=== PATIENT | female | born 1950 | race Caucasian/White ===

== ENCOUNTER 2016-10-11 07:04 | Outpatient (CLI) | payer MEDICARE ==
[~2016-10-11 07:04] MED LIST: ACETAMINOPHEN TAB 325 MG TAB PO ONE; SODIUM CHLORIDE 0.9% 250 ML in EMPTY BAG 1 BAG IV PRN; SODIUM CHLORIDE 0.9% 500 ML in EMPTY BAG 1 BAG IV PRN; diphenhydrAMINE 25 MG CAP PO ONE; diphenhydrAMINE 50 MG/ML 1 ML VIAL IVP ONE
[2016-10-11 07:58] VITALS: RESP 16; TEMP 97.7
[2016-10-11 08:16] LABS: Aty Lym Flag Slight; CH 30.7; CHCM 33.8; HDW 2.72; HGB 12.8 gm/dL (11.4-16.0); MCH 29.9 pg (25.0-35.0); MCHC 32.8 g/dL (31.0-37.0); MCV 91.3 fL (80.0-100.0); Mean Platelet Volume 8.1; RBC 4.27 m/uL (3.80-5.40); RDW 13.6 % (11.5-15.5); WBC 5.5 k/uL (3.8-10.6); WBC (Perox) 5.54
[2016-10-11 08:38] LABS: ALT 25 U/L (9-52); AST 29 U/L (14-36); Alkaline Phosphatase 81 U/L (38-126); Anion Gap 14 mmol/L; Bilirubin, Delta 0.3 mg/dL (0.0-0.2); Blood Urea Nitrogen 13 mg/dL (7-17); Calcium 9.4 mg/dL (8.4-10.2); Carbon Dioxide 22 mmol/L (22-30); Chloride 105 mmol/L (98-107); Glucose 105 mg/dL (74-99); Non-African American GFR(MDRD) >60 (>60 ml/min/1.73 sqM); Potassium 4.6 mmol/L (3.5-5.1); Sodium 141 mmol/L (137-145); Total Bilirubin 0.6 mg/dL (0.2-1.3)
[2016-10-11 08:57] LABS: Add Differential Manual Differential
[2016-10-11 09:04] LABS: Nucleated Red Blood Cells 0 /100 WBC (0-0); Total Cells Counted 100
[2016-10-11 09:19] VITALS: BP 128/71; PULSE 60
[2016-10-11 10:41] LABS: Appearance,Urine Clear (Clear); Bilirubin,Urine Negative (Negative); Glucose,Urine (UA) Negative (Negative); Ketones,Urine Negative (Negative); Leukocyte Esterase,Urine Negative (Negative); Nitrite,Urine Negative (Negative); Protein,Urine Negative (Negative); Specific Gravity,Urine 1.004 (1.001-1.035); UA Billing (MACRO vs. MICRO) CHEM; Urobilinogen,Urine <2.0 mg/dL (<2.0)
[2016-10-11 10:49] LABS: Erythrocyte Sedimentation Rate 33 mm/hr (0-20)
[2016-10-11] MEDS ORDERED: ACETAMINOPHEN TAB 325 MG TAB PO ONE (23:00)
[2016-10-11] MEDS ORDERED: diphenhydrAMINE 25 MG CAP PO ONE (23:00)
[2016-10-11] MEDS ORDERED: diphenhydrAMINE 50 MG/ML 1 ML VIAL IVP ONE (23:00)
== END 2016-10-11 11:23 | disposition home or self-care (01) ==
LOC: PROCWHC3 07:04
PROVIDERS: ATTEND Internal Medicine Rheumatology
DX: M06.89 Other specified rheumatoid arthritis, multiple sites (principal); I48.91 Unspecified atrial fibrillation; Z79.01 Long term (current) use of anticoagulants
CPT/HCPCS: 80053; 85652; 82248; 85025; 81003; 96361; 96413; 96415; J1745

== ENCOUNTER → 2016-11-29 | Outpatient (CLI) | payer MEDICARE ==
[2016-11-29 07:46] VITALS: RESP 16; TEMP 98.3
[2016-11-29 08:44] LABS: Aty Lym Flag Slight; CHCM 33.6; HCT 37.5 % (34.0-46.0); HDW 2.79; HGB 12.5 gm/dL (11.4-16.0); MCHC 33.4 g/dL (31.0-37.0); MCV 92.9 fL (80.0-100.0); Mean Platelet Volume 8.8; RBC 4.04 m/uL (3.80-5.40); RDW 14.5 % (11.5-15.5); WBC 6.3 k/uL (3.8-10.6); WBC (Perox) 6.52
[2016-11-29 09:00] LABS: ALT 28 U/L (9-52); AST 32 U/L (14-36); Alkaline Phosphatase 90 U/L (38-126); Anion Gap 12 mmol/L; Bilirubin, Delta 0.4 mg/dL (0.0-0.2); Blood Urea Nitrogen 13 mg/dL (7-17); Calcium 9.5 mg/dL (8.4-10.2); Carbon Dioxide 23 mmol/L (22-30); Chloride 109 mmol/L (98-107); Glucose 100 mg/dL (74-99); Non-African American GFR(MDRD) >60 (>60 ml/min/1.73 sqM); Sodium 144 mmol/L (137-145); Total Bilirubin 0.7 mg/dL (0.2-1.3)
[2016-11-29 09:23] VITALS: BP 122/70; PULSE 67
[2016-11-29 10:25] LABS: Add Differential Manual Differential
[2016-11-29 10:28] LABS: Nucleated Red Blood Cells 0 /100 WBC (0-0); Total Cells Counted 100
[2016-11-29 10:29] LABS: RBC Morphology Normal
[2016-11-29 11:58] LABS: Erythrocyte Sedimentation Rate 36 mm/hr (0-20)
== END | disposition home or self-care (01) ==
LOC: PROCWHC3 07:19
PROVIDERS: ATTEND Internal Medicine Rheumatology
DX: M06.89 Other specified rheumatoid arthritis, multiple sites (principal)
CPT/HCPCS: 80053; 85652; 82248; 85025; 96413; 96415; 36415; J1745; 96361

== ENCOUNTER → 2017-01-31 | Outpatient (CLI) | payer MEDICARE ==
[2017-01-31 08:04] VITALS: TEMP 97.8
[2017-01-31 08:40] VITALS: RESP 18
[2017-01-31 08:40] LABS: ALT 21 U/L (9-52); AST 34 U/L (14-36); Alkaline Phosphatase 81 U/L (38-126); Anion Gap 10 mmol/L; Bilirubin, Delta 0.4 mg/dL (0.0-0.2); Blood Urea Nitrogen 19 mg/dL (7-17); Carbon Dioxide 20 mmol/L (22-30); Chloride 110 mmol/L (98-107); Glucose 100 mg/dL (74-99); Non-African American GFR(MDRD) >60 (>60 ml/min/1.73 sqM); Potassium 4.2 mmol/L (3.5-5.1); Sodium 140 mmol/L (137-145); Total Bilirubin 0.8 mg/dL (0.2-1.3); Total Protein 7.7 g/dL (6.3-8.2)
[2017-01-31 08:57] LABS: Basophils # (A) 0.1 k/uL (0-0.2); Basophils % (A) 1 %; CH 31.5; CHCM 34.4; Eosinophils # (A) 0.3 k/uL (0-0.7); Eosinophils % (A) 5 %; HCT 37.2 % (34.0-46.0); HGB 12.7 gm/dL (11.4-16.0); Luc % (Auto) 3; Lymphocytes # (A) 1.8 k/uL (1.0-4.8); Lymphocytes % (A) 28 %; MCH 31.5 pg (25.0-35.0); MCHC 34.1 g/dL (31.0-37.0); MCV 92.2 fL (80.0-100.0); Mean Platelet Volume 8.4; Monocytes # (A) 0.5 k/uL (0-1.0); Monocytes % (A) 8 %; Neutrophils # (A) 3.5 k/uL (1.3-7.7); Neutrophils % (A) 55 %; RBC 4.03 m/uL (3.80-5.40); RDW 14.6 % (11.5-15.5); WBC 6.4 k/uL (3.8-10.6); WBC (Perox) 6.56
[2017-01-31 09:29] VITALS: BP 119/67; PULSE 59
[2017-01-31 10:29] LABS: INR 2.6 (<1.1); Prothrombin Time 25.5 sec (9.0-12.0)
[2017-01-31 10:34] LABS: Erythrocyte Sedimentation Rate 25 mm/hr (0-20)
[2017-01-31 10:47] LABS: Appearance,Urine Clear (Clear); Bilirubin,Urine Negative (Negative); Glucose,Urine (UA) Negative (Negative); Ketones,Urine Negative (Negative); Leukocyte Esterase,Urine Negative (Negative); Nitrite,Urine Negative (Negative); PH, Urine 5.5 (5.0-8.0); Protein,Urine Negative (Negative); Specific Gravity,Urine 1.006 (1.001-1.035); UA Billing (MACRO vs. MICRO) CHEM; Urobilinogen,Urine <2.0 mg/dL (<2.0)
== END | disposition home or self-care (01) ==
LOC: PROCWHC3 07:09
PROVIDERS: ATTEND Internal Medicine Rheumatology
DX: M06.89 Other specified rheumatoid arthritis, multiple sites (principal); I48.0 Paroxysmal atrial fibrillation
CPT/HCPCS: 80053; 85652; 82248; 85025; 85610; 81003; 96413; 96415; 36415; J1745

== ENCOUNTER 2017-03-14 21:39 | Emergency (ER) | payer MEDICARE ==
--- NOTE | 2017-03-14 22:17 | ED ---
General Adult HPI - General Chief complaint: Recheck/Abnormal Lab/Rx Stated complaint: Abnormal labs on out patient labs Time Seen by Provider: 03/14/17 22:01 Source: patient Mode of arrival: ambulatory Limitations: no limitations - History of Present Illness Initial comments: Didi Ruano is a 67-year-old female with a past medical history of A. fib for which she is on Coumadin. Patient reports that this morning she went for infusion of Remicade for treatment of her rheumatoid arthritis, at that time her blood was taken and labs are ran. Her INR resulted with an INR greater than 10. Patient reports she was given 10 mg of vitamin K and written a prescription for oral vitamin K. She was advised to withhold her Coumadin tonight follow-up with her primary care physician for repeat labs. Patient reports that she has visited multiple pharmacies this evening and has been unable to fill her prescription for oral vitamin K, because she cannot find this medication she came to the ER for further evaluation. She denies any active bleeding, any nosebleeds, bleeding gums, vaginal bleeding hematuria or blood in her stools. She denies any lightheadedness, chest pain or shortness of breath. Patient reports that she had not been told that she needed take this medication tonight she would not of psychiatric emergency department. - Related Data Home Medications Medication Instructions Recorded Confirmed Cholecalciferol [Vitamin D3] 1,000 units PO DAILY 02/23/14 03/14/17 Folic Acid 1 mg PO DAILY 02/23/14 03/14/17 Methotrexate Sodium [Methotrexate] 12.5 mg PO MO 02/23/14 03/14/17 Pantoprazole Sodium [Protonix] 40 mg PO DAILY 06/29/14 03/14/17 inFLIXimab [Remicade] 300 mg SQ Q42D 06/29/14 03/14/17 Atorvastatin [Lipitor] 10 mg PO HS 02/10/15 03/14/17 Metoprolol Tartrate [Lopressor] 25 mg PO BID 11/10/15 03/14/17 Propafenone [Rythmol] 150 mg PO DAILY PRN 03/14/17 03/14/17 Ubidecarenone [Co Q-10] 100 mg PO HS 03/14/17 03/14/17 Warfarin Sodium [Coumadin] 7.5 mg PO MO 03/14/17 03/14/17 Warfarin [Coumadin] 5 mg PO SUTUWETHFRSA 03/14/17 03/14/17 predniSONE 10 mg PO BID 03/14/17 03/14/17 Allergies Allergy/AdvReac Type Severity Reaction Status Date / Time erythromycin base AdvReac Rash/Hives Verified 03/14/17 22:01 Review of Systems ROS Statement: Those systems with pertinent positive or pertinent negative responses have been documented in the HPI. ROS Other: All systems not noted in ROS Statement are negative. Constitutional: Denies: fever, chills Eyes: Denies: vision change ENT: Denies: epistaxis Respiratory: Denies: dyspnea, hemoptysis Cardiovascular: Denies: chest pain, dyspnea on exertion Endocrine: Denies: fatigue Gastrointestinal: Denies: abdominal pain, hematemesis, melena, hematochezia Genitourinary: Denies: dysuria, hematuria Neurological: Denies: weakness Psychiatric: Reports: depression (Patient reports she recently lost her mother and is experiencing a lot of grief because of this, she is planning a celebration of life event in her mother's memory next week which is causing her a lot of stress). Denies: anxiety Hematological/Lymphatic: Reports: easy bruising Past Medical History Past Medical History: Atrial Fibrillation, GERD/Reflux, Rheumatoid Arthritis (RA ) Additional Past Medical History / Comment(s): NEW ONSET A-FIB RVR History of Any Multi-Drug Resistant Organisms: None Reported Past Surgical History: Tonsillectomy Additional Past Surgical History / Comment(s): CATARATS LENS IMPLANTS, RT FOOT REMOVED 3 NODULES Past Anesthesia/Blood Transfusion Reactions: No Reported Reaction Past Psychological History: No Psychological Hx Reported Smoking Status: Never smoker - Past Family History Father Family Medical History: Neurologic Disorder Additional Family Medical History / Comment(s): ARRYTHMIA, CORNEAL IMPLANTS, LT EYE BLIND , PARKINSONS, FATHER HAS Mother Family Medical History: Cancer, Coronary Artery Disease (CAD), Myocardial Infarction (NM) Additional Family Medical History / Comment(s): MOM IS 92 YEARS OLD. CATARACTS, DETATCHED RETINA, GLAUCOMA, MACULAR DEGENERATION, STENTS, BOWEL RESECTION FOR DIVERTICULITIS, KATINA KNEE REPLACEMENT, UTERINE CA/HYSTERECTOMY, Brother(s) Family Medical History: No Reported History Sister(s) Family Medical History: No Reported History General Exam Limitations: no limitations General appearance: alert, in no apparent distress Head exam: Present: atraumatic, normocephalic, normal inspection Eye exam: Present: normal appearance, PERRL, EOMI. Absent: scleral icterus, conjunctival injection, periorbital swelling ENT exam: Present: normal exam, mucous membranes moist Neck exam: Present: normal inspection. Absent: tenderness, meningismus, lymphadenopathy Respiratory exam: Present: normal lung sounds bilaterally. Absent: respiratory distress, wheezes, rales, rhonchi, stridor Cardiovascular Exam: Present: regular rate, irregular rhythm GI/Abdominal exam: Present: soft, normal bowel sounds. Absent: distended, tenderness, guarding, rebound, rigid Extremities exam: Present: normal inspection, full ROM, normal capillary refill. Absent: tenderness, pedal edema, joint swelling, calf tenderness Neurological exam: Present: alert, oriented X3, CN II-XII intact Psychiatric exam: Present: normal affect, normal mood, depressed Skin exam: Present: warm, dry, rash (Rash on abdomen, patient states this developed after being on Augmentin. No active bleeding noted) Course Vital Signs 03/14/17 21:54 Temperature 98.1 F Pulse Rate 85 Respiratory 18 Rate Blood Pressure 129/76 O2 Sat by Pulse 99 Oximetry - Reevaluation(s) Reevaluation #1: Labs resulted with an INR of 2.2, these results were discussed with the patient. I advised her that she doesn't require any further treatment with vitamin K. Patient is agreeable to this plan. 03/14/17 22:48 Medical Decision Making - Medical Decision Making Patient was seen and evaluated, history was obtained patient. Patient reported an INR greater than 10 on outpatient labs, received 10 mg of vitamin K. Patient with no active bleeding, physical exam unremarkable with no signs of bleeding or no conjunctival pallor Repeat labs were ordered Repeat labs reveal an INR of 2.2 Results were discussed with the patient and family member at bedside. Advised patient she doesn't need any further vitamin K. She should call her rn digestive tomorrow to discuss resuming her Coumadin. Patient expressed understanding of plan and agreement. All shins pertaining to take care were answered and patient was discharged home. - Lab Data Result diagrams: 03/14/17 22:16 Lab Results 03/14/17 03/14/17 Range/Units 22:16 22:16 WBC 14.7 H (3.8-10.6) k/uL RBC 3.63 L (3.80-5.40) m/uL Hgb 11.3 L (11.4-16.0) gm/dL Hct 32.6 L (34.0-46.0) % MCV 89.6 (80.0-100.0) fL MCH 31.2 (25.0-35.0) pg MCHC 34.8 (31.0-37.0) g/dL RDW 13.9 (11.5-15.5) % Plt Count 240 (150-450) k/uL Neutrophils % 62 % Lymphocytes % 29 % Monocytes % 6 % Eosinophils % 2 % Basophils % 0 % Neutrophils # 9.1 H (1.3-7.7) k/uL Lymphocytes # 4.2 (1.0-4.8) k/uL Monocytes # 0.9 (0-1.0) k/uL Eosinophils # 0.3 (0-0.7) k/uL Basophils # 0.1 (0-0.2) k/uL PT 21.0 H (9.0-12.0) sec INR 2.2 (<1.1) APTT 32.0 H (22.0-30.0) sec Disposition Clinical Impression: Warfarin-induced coagulopathy Disposition: HOME SELF-CARE Instructions: Warfarin (By mouth) Referrals: Les Esteban MD [Primary Care Provider] - 1-2 days
[2017-03-14 22:34] LABS: Basophils # (A) 0.1 k/uL (0-0.2); Basophils % (A) 0 %; CHCM 34.9; Eosinophils # (A) 0.3 k/uL (0-0.7); Eosinophils % (A) 2 %; HCT 32.6 % (34.0-46.0); HDW 2.72; HGB 11.3 gm/dL (11.4-16.0); Luc # (Auto) 0.19; Luc % (Auto) 1; Lymphocytes # (A) 4.2 k/uL (1.0-4.8); Lymphocytes % (A) 29 %; MCH 31.2 pg (25.0-35.0); MCHC 34.8 g/dL (31.0-37.0); MCV 89.6 fL (80.0-100.0); Mean Platelet Volume 8.5; Monocytes # (A) 0.9 k/uL (0-1.0); Monocytes % (A) 6 %; Neutrophils # (A) 9.1 k/uL (1.3-7.7); Neutrophils % (A) 62 %; RBC 3.63 m/uL (3.80-5.40); RDW 13.9 % (11.5-15.5); WBC 14.7 k/uL (3.8-10.6); WBC (Perox) 13.81
[2017-03-14 22:41] LABS: INR 2.2 (<1.1)
[2017-03-14 23:00] VITALS: BP 140/62; PULSE 79; RESP 16; TEMP 98
== END 2017-03-14 22:59 | disposition home or self-care (01) ==
LOC: EC 21:39
DX: D68.32 Hemorrhagic disorder due to extrinsic circulating anticoagulants (principal); T45.515A Adverse effect of anticoagulants, initial encounter; I48.91 Unspecified atrial fibrillation; M06.9 Rheumatoid arthritis, unspecified; R21 Rash and other nonspecific skin eruption; K21.9 Gastro-esophageal reflux disease without esophagitis; Z79.52 Long term (current) use of systemic steroids; Z79.01 Long term (current) use of anticoagulants; Z79.899 Other long term (current) drug therapy; Z89.431 Acquired absence of right foot; Z88.1 Allergy status to other antibiotic agents
CPT/HCPCS: 99283 ×2; 36415 ×2; 80053; 85652; 82248; 85025; 85610; 85730; 81001; 96413; 96415; J1745

== ENCOUNTER → 2017-03-14 | Outpatient (CLI) | payer MEDICARE ==
[~2017-03-14] MED LIST changes: +PHYTONADIONE ORAL 5 MG/5 ML ORAL.SYRG PO ONE
[2017-03-14 08:08] VITALS: TEMP 97.7
[2017-03-14 08:28] LABS: Basophils % (A) 0 %; CH 30.4; CHCM 33.5; Eosinophils # (A) 0.1 k/uL (0-0.7); Eosinophils % (A) 1 %; HCT 35.2 % (34.0-46.0); HDW 2.73; HGB 11.9 gm/dL (11.4-16.0); Luc # (Auto) 0.13; Luc % (Auto) 1; Lymphocytes # (A) 2.1 k/uL (1.0-4.8); Lymphocytes % (A) 15 %; MCH 30.9 pg (25.0-35.0); MCHC 33.8 g/dL (31.0-37.0); MCV 91.5 fL (80.0-100.0); Mean Platelet Volume 8.2; Monocytes # (A) 0.6 k/uL (0-1.0); Monocytes % (A) 4 %; Neutrophils % (A) 79 %; RBC 3.84 m/uL (3.80-5.40); RDW 13.7 % (11.5-15.5); WBC 13.9 k/uL (3.8-10.6); WBC (Perox) 14.48
[2017-03-14 08:29] VITALS: RESP 18
[2017-03-14 08:43] LABS: Prothrombin Time 114.5 sec (9.0-12.0)
[2017-03-14 08:45] VITALS: BP 108/68; PULSE 69
[2017-03-14 08:49] LABS: INR >10.0 (<1.1)
[2017-03-14 09:16] LABS: ALT 25 U/L (9-52); AST 32 U/L (14-36); Alkaline Phosphatase 72 U/L (38-126); Anion Gap 14 mmol/L; Bilirubin, Delta 0.4 mg/dL (0.0-0.2); Blood Urea Nitrogen 21 mg/dL (7-17); Calcium 9.3 mg/dL (8.4-10.2); Carbon Dioxide 23 mmol/L (22-30); Chloride 106 mmol/L (98-107); Glucose 132 mg/dL (74-99); Non-African American GFR(MDRD) >60 (>60 ml/min/1.73 sqM); Potassium 4.4 mmol/L (3.5-5.1); Sodium 143 mmol/L (137-145); Total Bilirubin 0.6 mg/dL (0.2-1.3); Total Protein 8.3 g/dL (6.3-8.2)
[2017-03-14 10:02] LABS: Erythrocyte Sedimentation Rate 92 mm/hr (0-20)
[2017-03-14 11:19] LABS: Appearance,Urine Clear (Clear); Bilirubin,Urine Negative (Negative); Glucose,Urine (UA) Negative (Negative); Ketones,Urine Negative (Negative); Leukocyte Esterase,Urine Moderate (Negative); Mucus,Urine Rare /hpf; Nitrite,Urine Negative (Negative); PH, Urine 5.5 (5.0-8.0); Particle Count 2476; Protein,Urine Negative (Negative); RBC,Urine 2 /hpf (0-5); Specific Gravity,Urine 1.015 (1.001-1.035); Squamous Epithelial Cell,Urine <1 /hpf (0-4); UA Billing (MACRO vs. MICRO) MICRO; Urobilinogen,Urine <2.0 mg/dL (<2.0); WBC,Urine 11 /hpf (0-5)
== END | disposition home or self-care (01) ==
LOC: PROCWHC3 07:06
PROVIDERS: ATTEND Internal Medicine Rheumatology
DX: M06.89 Other specified rheumatoid arthritis, multiple sites (principal); I48.0 Paroxysmal atrial fibrillation; Z51.81 Encounter for therapeutic drug level monitoring
CPT/HCPCS: 80053; 85652; 82248; 85025; 85610; 81001; 96413; 96415; 36415; J1745

== ENCOUNTER → 2017-04-25 | Outpatient (CLI) | payer MEDICARE ==
[~2017-04-25] MED LIST changes: -PHYTONADIONE ORAL 5 MG/5 ML ORAL.SYRG PO ONE; -SODIUM CHLORIDE 0.9% 250 ML in EMPTY BAG 1 BAG IV PRN
[2017-04-25 07:39] VITALS: RESP 18; TEMP 98.7
[2017-04-25 08:20] LABS: ALT 32 U/L (9-52); AST 29 U/L (14-36); Alkaline Phosphatase 105 U/L (38-126); Anion Gap 7 mmol/L; Basophils # (A) 0.1 k/uL (0-0.2); Basophils % (A) 1 %; Bilirubin, Delta 0.3 mg/dL (0.0-0.2); Blood Urea Nitrogen 13 mg/dL (7-17); CH 30.6; CHCM 33.7; Calcium 9.1 mg/dL (8.4-10.2); Carbon Dioxide 23 mmol/L (22-30); Chloride 109 mmol/L (98-107); Eosinophils # (A) 0.2 k/uL (0-0.7); Eosinophils % (A) 2 %; Glucose 90 mg/dL (74-99); HCT 35.2 % (34.0-46.0); HDW 2.79; Luc # (Auto) 0.26; Luc % (Auto) 4; Lymphocytes # (A) 2.2 k/uL (1.0-4.8); Lymphocytes % (A) 32 %; MCH 31.2 pg (25.0-35.0); MCHC 34.2 g/dL (31.0-37.0); MCV 91.5 fL (80.0-100.0); Mean Platelet Volume 7.7; Monocytes # (A) 0.7 k/uL (0-1.0); Monocytes % (A) 10 %; Neutrophils # (A) 3.6 k/uL (1.3-7.7); Neutrophils % (A) 51 %; Non-African American GFR(MDRD) >60 (>60 ml/min/1.73 sqM); RBC 3.84 m/uL (3.80-5.40); RDW 14.4 % (11.5-15.5); Sodium 139 mmol/L (137-145); Total Bilirubin 0.7 mg/dL (0.2-1.3); WBC 6.9 k/uL (3.8-10.6); WBC (Perox) 7.19
[2017-04-25 08:22] LABS: INR 1.8 (<1.2)
[2017-04-25 08:35] VITALS: PULSE 66
[2017-04-25 09:01] VITALS: BP 106/68
[2017-04-25 10:10] LABS: Appearance,Urine Clear (Clear); Bilirubin,Urine Negative (Negative); Glucose,Urine (UA) Negative (Negative); Ketones,Urine Negative (Negative); Leukocyte Esterase,Urine Small (Negative); Nitrite,Urine Negative (Negative); Particle Count 858; Protein,Urine Negative (Negative); Specific Gravity,Urine 1.004 (1.001-1.035); Squamous Epithelial Cell,Urine 1 /hpf (0-4); UA Billing (MACRO vs. MICRO) MICRO; Urobilinogen,Urine <2.0 mg/dL (<2.0); WBC,Urine 3 /hpf (0-5)
[2017-04-25 11:11] LABS: Erythrocyte Sedimentation Rate 41 mm/hr (0-20)
== END | disposition home or self-care (01) ==
LOC: PROCWHC3 07:09
PROVIDERS: ATTEND Internal Medicine Rheumatology
DX: M06.89 Other specified rheumatoid arthritis, multiple sites (principal)
CPT/HCPCS: 80053; 85652; 82248; 85025; 85610; 81001; 96413; 96415; J1745

== ENCOUNTER → 2017-05-27 | Outpatient (CLI) | payer MEDICARE ==
--- NOTE | 2017-05-27 14:42 | WWHP ---
[facility] - HISTORY AND PHYSICAL DATE OF SERVICE: 05/27/2017 CHIEF COMPLAINT: The patient is here for her routine gynecologic exam and mammogram. HPI: This is a 67-year-old G0 with an LMP of 2005. The patient states it has been about 2 years since her last pelvic exam. She is without gynecologic complaints and denies any postmenopausal bleeding. PAST MEDICAL HISTORY: Atrial fibrillation, rheumatoid arthritis, and elevated cholesterol. MEDICATIONS: 1. Remicade IV infusions every 6 weeks. 2. Protonix 40 mg daily. 3. Folic acid 1 mg daily. 4. Vitamin D 5000 units daily. 5. Coumadin 5 mg 2 days a week and 2.5 mg daily on the other days. 6. Lipitor 20 mg daily. 7. Metoprolol 50 mg daily. 8. Flecainide 50 mg daily. 9. Methotrexate 2.5 mg 5 taken weekly. 10.CO-Q10 two hundred mg daily. ALLERGIES: No known drug allergies. PAST SURGICAL HISTORY: Colonoscopy 2015, this was her second one, right foot surgery in the past, right shoulder surgery 2017. 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 SOCIAL HISTORY: She previously smoked in her 20s, but quit. She has about 2 alcoholic drinks every other day, but can drink up to 4 drinks on the weekend. She denies drug use. She retired and previously worked at [employer]. She is in a homosexual relationship and has been with her partner since 2010 and lives with her. PHYSICAL EXAM: Blood pressure 146/69, height 5 feet 2 inches, weight 152 pounds, temperature 96.7, pulse 75. This is a well-developed, well-nourished, white female, who is alert and oriented x3, in no acute distress. HEENT is within normal limits. NECK: Supple without mass or thyromegaly. CHEST AND LUNGS: Clear to auscultation. HEART: Regular rate and rhythm. Breasts are without mass or discharge. There is bilateral central nipple inversion, which she states she has had all of her life. Axillary exam is negative for adenopathy. Back negative for CVA tenderness. ABDOMEN: Soft, nontender, without palpable masses. PELVIC EXAM: External genitalia reveals [id number] atrophy without lesions, cervix and vagina reveal moderate atrophy without lesions. There is no evidence of prolapse. The uterus is mid-position, nongravid size and nontender. There are no palpable adnexal masses or tenderness. Rectovaginal exam is negative for mass or tenderness and is negative for occult blood. EXTREMITIES: Nontender. IMPRESSION: 1. A 67-year-old menopausal female with normal gynecologic exam. 2. Mild blood pressure elevation. PLAN: 1. Pap smear was performed. 2. Self breast examination was discussed. 3. Mammogram will be done today. 4. Osteoporosis prevention was discussed. A bone density testing will be done today. 5. We have discussed her elevated blood pressure. I have recommended that she do self- blood pressure checks and to follow up with Dr. Esteban for blood pressure elevations. 6. She states she does get flu shots in the fall and will have this given to her when available. 7. She will return in 1 year. MMODL / IJN: [id number] /
--- NOTE | 2017-05-27 15:49 | BD ---
EXAMINATION TYPE: MG DEXA axial skeleton. DATE OF EXAM: 05/27/2017 COMPARISON: NONE CLINICAL HISTORY: Z78.0 POST MENOPAUSAL W/O HRT Height: 61.5 Weight: 154 FRAX RISK QUESTIONS: Alcohol (3 or more units per day): NO Family History (Parent hip fracture): NO Glucocorticoids (More than 3mos): NO (Ex: prednisone, prednisolone, methylprednisolone, dexamethasone, and hydrocortisone). History of Fracture in Adulthood: YES Secondary Osteoporosis: NO 1. Type 1 Diabetes: NO 2. Hyperthyroidism: NO 3. Menopause before 45: NO 4. Malnutrition: NO 5. Chronic liver disease: NO Rheumatoid Arthritis: YES Current Tobacco Use: NO RISK FACTORS HISTORY OF: LT LEG FRACTURE 2010, PT OVER AGE 50 AT TIME OF FX Family History of Osteoporosis: UNKNOWN Active: YES Diet low in dairy products/other sources of calcium: NO Postmenopausal woman: 55 YRS OLD Lost more than 2 inches in height since high school: UNSURE Hyperparathyroidism: NO Adrenal Insufficiency: NO MEDICATIONS: Prednisone or other steroids: ASTHMA INHALERS ON AND OFF How Long: FOR YRS....ENVOROMENTAL AND ALLERGY INDUCED Additional Medications: VIT D, PROTONIX, LIPITOR, CO Q10, REMICADE INFUSIONS EVERY 6 WEEKS, METHOTREX ATE WEEKLY Additional History: RHEUMATOID ARTHRITIS, EXAM MEASUREMENTS: Bone mineral densitometry was performed using the [employer] System. Bone mineral density as measured about the Lumbar spine is: ----- L1-L4(G/cm2): 1.049 T Score Values are as follows: ----- L1: -1.7 ----- L2: -1.7 ----- L3: -0.4 ----- L4: -1.0 ----- L1-L4: -1.1 Bone mineral density THIS IS HER FIRST BONE DENSITY TEST AT [facility] Bone mineral density about the R hip (g/cm2): 0.841 Bone mineral density about the L hip (g/cm2): 0.772 T Score values are as follows: -----R Neck: -1.1 -----L Neck: -1.6 -----R Total: -1.3 -----L Total: -1.9 Bone mineral density FIRST BONE DENSITY WITH [facility] FRAX%'S: THERE IS A 20.1% CHANCE OF MAJOR OSTEOPOROTIC FX AND A 3.0% FOR HIP FX.....PROBABILITY O F FX IN 10 YRS TIME IMPRESSION: Osteopenia (T Score between -2.5 and -1 as noted by T score values There is slightly increased risk of fracture and the patient may be considered for treatment. Re-Screen 2-5 years FOR BOTH OF HER HIPS AND LUMBAR SPINE.. NOTE: T-SCORE=SD OF THE YOUNG ADULT MEAN.
--- NOTE | 2017-05-28 10:06 | MM ---
Reason for exam: screening (asymptomatic). Last mammogram was performed 9 months ago. History: Patient is postmenopausal and is nulliparous. Benign excisional biopsy of the left breast, 2016. Physical Findings: A clinical breast exam by your physician is recommended on an annual basis and results should be correlated with mammographic findings. MG 3D Screening Mammo W/Cad Bilateral CC and MLO view(s) were taken. Prior study comparison: February 22, 2016, mammogram, performed at [facility]. February 02, 2015, mammogram, performed at [facility]. There are scattered fibroglandular densities. Finding: There are typically benign round, linear calcifications in the right breast. Previous mammotome biopsy in the left breast. There is no discrete abnormality. ASSESSMENT: Benign, BI-RAD 2 RECOMMENDATION: Routine screening mammogram of both breasts in 1 year.
== END | disposition home or self-care (01) ==
LOC: WWCWWP 12:34
PROVIDERS: ATTEND Obstetrics & Gynecology
DX: Z12.31 Encounter for screening mammogram for malignant neoplasm of breast (principal); M85.852 Other specified disorders of bone density and structure, left thigh; M85.851 Other specified disorders of bone density and structure, right thigh; M85.88 Other specified disorders of bone density and structure, other site
CPT/HCPCS: 77080; 77063; G0202

== ENCOUNTER → 2017-06-06 | Outpatient (CLI) | payer MEDICARE ==
[~2017-06-06] MED LIST changes: +INFLIXIMAB-DYYB 300 MG in SODIUM CHLORIDE 0.9% 220 ML IV NR; -diphenhydrAMINE 50 MG/ML 1 ML VIAL IVP ONE
[2017-06-06 07:58] VITALS: TEMP 98.1
[2017-06-06 08:18] LABS: ALT 27 U/L (9-52); AST 30 U/L (14-36); Alkaline Phosphatase 92 U/L (38-126); Anion Gap 12 mmol/L; Bilirubin, Delta 0.1 mg/dL (0.0-0.2); Blood Urea Nitrogen 9 mg/dL (7-17); Carbon Dioxide 23 mmol/L (22-30); Chloride 108 mmol/L (98-107); Glucose 85 mg/dL (74-99); Non-African American GFR(MDRD) >60 (>60 ml/min/1.73 sqM); Potassium 4.6 mmol/L (3.5-5.1); Sodium 143 mmol/L (137-145); Total Bilirubin 0.3 mg/dL (0.2-1.3); Total Protein 7.3 g/dL (6.3-8.2)
[2017-06-06 08:27] LABS: INR 3.6 (<1.2); Prothrombin Time 34.7 sec (9.0-12.0)
[2017-06-06 08:28] LABS: Basophils % (A) 1 %; CH 31.8; CHCM 33.1; Eosinophils # (A) 0.3 k/uL (0-0.7); Eosinophils % (A) 5 %; HDW 2.61; HGB 12.5 gm/dL (11.4-16.0); Luc # (Auto) 0.15; Luc % (Auto) 3; Lymphocytes # (A) 1.8 k/uL (1.0-4.8); Lymphocytes % (A) 33 %; MCHC 32.1 g/dL (31.0-37.0); Mean Platelet Volume 8.7; Monocytes # (A) 0.6 k/uL (0-1.0); Monocytes % (A) 11 %; Neutrophils # (A) 2.6 k/uL (1.3-7.7); Neutrophils % (A) 48 %; RBC 4.03 m/uL (3.80-5.40); RDW 15.2 % (11.5-15.5); WBC 5.5 k/uL (3.8-10.6); WBC (Perox) 5.93
[2017-06-06 08:31] VITALS: RESP 18
[2017-06-06 08:32] LABS: MCV 96.8 fL (80.0-100.0)
[2017-06-06 09:14] VITALS: PULSE 68
[2017-06-06 09:38] VITALS: BP 119/73
[2017-06-06 10:02] LABS: Erythrocyte Sedimentation Rate 22 mm/hr (0-20)
[2017-06-06 10:53] LABS: Appearance,Urine Clear (Clear); Bilirubin,Urine Negative (Negative); Glucose,Urine (UA) Negative (Negative); Ketones,Urine Negative (Negative); Leukocyte Esterase,Urine Negative (Negative); Nitrite,Urine Negative (Negative); Protein,Urine Negative (Negative); Specific Gravity,Urine 1.006 (1.001-1.035); UA Billing (MACRO vs. MICRO) CHEM; Urobilinogen,Urine <2.0 mg/dL (<2.0)
== END | disposition home or self-care (01) ==
LOC: PROCWHC3 07:01
PROVIDERS: ATTEND Internal Medicine Rheumatology
DX: M06.89 Other specified rheumatoid arthritis, multiple sites (principal)
CPT/HCPCS: 80053; 85652; 82248; 85025; 85610; 81003; 96413; 96415; 36415; J1745

== ENCOUNTER → 2017-07-28 | Outpatient (CLI) | payer MEDICARE ==
[~2017-07-28] MED LIST changes: -INFLIXIMAB-DYYB 300 MG in SODIUM CHLORIDE 0.9% 220 ML IV NR; +diphenhydrAMINE 50 MG/ML 1 ML VIAL IVP ONE
[2017-07-28 07:29] VITALS: TEMP 98
[2017-07-28 07:48] LABS: INR 1.9 (<1.2); Prothrombin Time 18.1 sec (9.0-12.0)
[2017-07-28 08:02] LABS: ALT 29 U/L (9-52); AST 38 U/L (14-36); Alkaline Phosphatase 100 U/L (38-126); Anion Gap 10 mmol/L; Bilirubin, Delta 0.2 mg/dL (0.0-0.2); Blood Urea Nitrogen 15 mg/dL (7-17); Calcium 9.7 mg/dL (8.4-10.2); Carbon Dioxide 21 mmol/L (22-30); Chloride 111 mmol/L (98-107); Glucose 112 mg/dL (74-99); Non-African American GFR(MDRD) >60 (>60 ml/min/1.73 sqM); Potassium 4.2 mmol/L (3.5-5.1); Sodium 142 mmol/L (137-145); Total Bilirubin 0.7 mg/dL (0.2-1.3); Total Protein 7.8 g/dL (6.3-8.2)
[2017-07-28 08:15] VITALS: RESP 16
[2017-07-28 08:25] LABS: Basophils # (A) 0.1 k/uL (0-0.2); Basophils % (A) 1 %; CH 30.5; CHCM 33.5; Eosinophils # (A) 0.4 k/uL (0-0.7); Eosinophils % (A) 6 %; HDW 2.67; HGB 13.3 gm/dL (11.4-16.0); Luc # (Auto) 0.21; Luc % (Auto) 3; Lymphocytes # (A) 1.9 k/uL (1.0-4.8); Lymphocytes % (A) 25 %; MCH 30.4 pg (25.0-35.0); MCHC 33.2 g/dL (31.0-37.0); Mean Platelet Volume 8.7; Monocytes # (A) 0.8 k/uL (0-1.0); Monocytes % (A) 10 %; Neutrophils # (A) 4.4 k/uL (1.3-7.7); Neutrophils % (A) 57 %; RBC 4.36 m/uL (3.80-5.40); RDW 13.3 % (11.5-15.5); WBC 7.7 k/uL (3.8-10.6); WBC (Perox) 7.51
[2017-07-28 08:27] VITALS: PULSE 79
[2017-07-28 08:27] LABS: MCV 91.6 fL (80.0-100.0)
[2017-07-28 08:55] VITALS: BP 117/70
[2017-07-28 10:18] LABS: Appearance,Urine Clear (Clear); Bacteria,Urine Rare /hpf; Bilirubin,Urine Negative (Negative); Glucose,Urine (UA) Negative (Negative); Ketones,Urine Negative (Negative); Leukocyte Esterase,Urine Large (Negative); Mucus,Urine Rare /hpf; Nitrite,Urine Negative (Negative); PH, Urine 5.5 (5.0-8.0); Particle Count 3032; Protein,Urine Negative (Negative); RBC,Urine 1 /hpf (0-5); Specific Gravity,Urine 1.015 (1.001-1.035); Squamous Epithelial Cell,Urine 2 /hpf (0-4); UA Billing (MACRO vs. MICRO) MICRO; Urobilinogen,Urine <2.0 mg/dL (<2.0); WBC,Urine 8 /hpf (0-5)
[2017-07-28 13:34] LABS: Erythrocyte Sedimentation Rate 29 mm/hr (0-20)
== END | disposition home or self-care (01) ==
LOC: PROCWHC3 06:58
PROVIDERS: ATTEND Internal Medicine Rheumatology
DX: M06.89 Other specified rheumatoid arthritis, multiple sites (principal); I48.0 Paroxysmal atrial fibrillation
CPT/HCPCS: 80053; 85652; 82248; 85025; 85610; 81001; 96413; 96415; 36415; J1745

== ENCOUNTER 2017-09-17 10:45 | Day surgery (SDC) | payer MEDICARE ==
[2017-09-15 10:16] VITALS: BMI 27.1
[~2017-09-17 10:45] MED LIST changes: -ACETAMINOPHEN TAB 325 MG TAB PO ONE; +ALBUTEROL NEB (CONC) 2.5 MG/0.5 ML INHALATION ONE; +ATROPINE SULFATE 0.4 MG/ML 1 ML VIAL IM ONE; +LACTATED RINGERS 1,000 ML IV ONE; +LACTATED RINGERS 1,000 ML IV SCH; +LIDOCAINE 2% (PF) 20 MG/ML 2 ML AMP INHALATION ONE; +Pre Op ABX Message 1 EACH MISC MISCELLANE ONE; -SODIUM CHLORIDE 0.9% 500 ML in EMPTY BAG 1 BAG IV PRN; -diphenhydrAMINE 25 MG CAP PO ONE; -diphenhydrAMINE 50 MG/ML 1 ML VIAL IVP ONE
[2017-09-17 11:21] VITALS: RESP 18; TEMP 98.6
[2017-09-17] MEDS ORDERED: MIDAZOLAM 2 MG/2 ML VIAL ONE (12:10)
[2017-09-17] MEDS ORDERED: PROPOFOL 10 MG/ML 20 ML VIAL IV ONE (12:10)
[2017-09-17] MEDS ORDERED: fentaNYL (PF) 50 MCG/ML 2 ML AMP ONE (12:10)
[2017-09-17] MEDS ORDERED: LIDOCAINE 1% INJ 10MG/ML (20 ML MDV) ONE (12:10)
--- NOTE | 2017-09-17 13:02 | PCN ---
PROCEDURE NOTE PROCEDURE: Bronchoscopy, airway examination, therapeutic lavage, BAL right middle lobe. PREOP DIAGNOSIS: Hemoptysis. POSTOP DIAGNOSIS: Hemoptysis. The patient's procedure was done in room #1. There was informed consent. There was universal timeout. The MOVEMENT ASSEMBLY FINAL INSPECTOR provided unconscious sedation with general anesthesia. After the patient was adequately sedated and being fully monitored, the bronchoscope was inserted through the right nostril. It passed through the right nasopharynx into the oropharynx. The hypopharynx was identified and topicalized. The hypopharyngeal structures including anterior commissure, true cords, false cords, arytenoids, piriform sinuses, right and left vallecula and epiglottis all appeared normal. After topicalization, bronchoscope was pushed through the glottic opening into the trachea. Trachea was normal. A few scattered secretions were noted. Nothing major. There was no blood seen. Tracheal nelson was sharp. Right and left mainstem were topicalized. After topicalization, the right upper lobe and its three segments, the right middle lobe and its two segments, the right lower lobe and its five segments, the left upper lobe proper and its two segments, the lingula and its two segments and the left lower lobe and its four segments were all thoroughly evaluated. There is no endobronchial masses or tumors. There was minimal bronchitis noted throughout. There was no active bleeding. There was no blood clots. No dominant mass. Secretions were pretty much very thin. There was no color to them. Next, the bronchoscope was wedged into the right middle lobe. The BAL took place. The patient tolerated the procedure well. There was no immediate complication. The bronchoscope was withdrawn. The patient will be recovered. MMODL / IJN: [id number] /
[2017-09-17 13:22] VITALS: PULSE 71
[2017-09-17 13:48] VITALS: BP 123/73
[2017-09-17 19:44] LABS: Appearance,BF Clear; Color,BF Colorless; Nucleated Cells, Body Fluid 38 /uL; RBC, Body Fluid 98 /uL
[2017-09-17 19:45] LABS: Mononuclear WBC,Body Fluid 83 %; Polynuclear WBC,Body Fluid 10 %
== END 2017-09-17 14:12 | disposition home or self-care (01) ==
LOC: ORWHC2ENDO 10:45
PROVIDERS: ATTEND Internal Medicine Critical Care Medicine
DX: J40 Bronchitis, not specified as acute or chronic (principal); R04.2 Hemoptysis; J84.9 Interstitial pulmonary disease, unspecified; M06.9 Rheumatoid arthritis, unspecified; Z87.891 Personal history of nicotine dependence; I48.91 Unspecified atrial fibrillation; K21.9 Gastro-esophageal reflux disease without esophagitis; M54.30 Sciatica, unspecified side; M81.0 Age-related osteoporosis without current pathological fracture; Z79.02 Long term (current) use of antithrombotics/antiplatelets; Z79.899 Other long term (current) drug therapy
CPT/HCPCS: 87798 ×3; 87496; 87498; 87529; 88108; 88305; 89050; 87252; 87502; 87634; 87070; 87205; 87116; 87102; 87206; 31624; J2250; J0461; J2001; J3010; J2704

== ENCOUNTER → 2017-09-18 | Outpatient (CLI) | payer MEDICARE ==
--- NOTE | 2017-09-18 10:29 | CT ---
EXAMINATION TYPE: CT chest wo con DATE OF EXAM: 09/18/2017 COMPARISON: NONE HISTORY: Interstitial lung disease CT DLP: 501.8 mGycm High-resolution noncontrast CT of the chest was performed with the patient in the prone and supine po sitions. Lung and mediastinal window settings are submitted. Moderate groundglass infiltrates are noted to involve the lingula, right upper lobe and lower lobes b ilaterally. There is subpleural fibrosis identified. Mild lower lobe bronchiectasis. Mild right basil ar emphysematous change. No evidence for airspace consolidation. No concerning pulmonary nodule or ma ss. No hilar or mediastinal adenopathy. Upper abdomen grossly unremarkable. IMPRESSION: 1. Moderate groundglass infiltrates may reflect acute inflammatory process. Correlate clinically. 2. Mild basilar subpleural fibrosis and lower lobe bronchiectasis.
== END | disposition home or self-care (01) ==
LOC: RADCTMAIN 09:53
PROVIDERS: ATTEND Internal Medicine Critical Care Medicine
DX: J84.10 Pulmonary fibrosis, unspecified (principal); J47.9 Bronchiectasis, uncomplicated; R91.8 Other nonspecific abnormal finding of lung field
CPT/HCPCS: 71250

== ENCOUNTER → 2017-10-03 | Outpatient (CLI) | payer MEDICARE ==
[~2017-10-03] MED LIST changes: +ACETAMINOPHEN TAB 325 MG TAB PO ONE; -ALBUTEROL NEB (CONC) 2.5 MG/0.5 ML INHALATION ONE; -ATROPINE SULFATE 0.4 MG/ML 1 ML VIAL IM ONE; -LACTATED RINGERS 1,000 ML IV ONE; -LACTATED RINGERS 1,000 ML IV SCH; -LIDOCAINE 2% (PF) 20 MG/ML 2 ML AMP INHALATION ONE; -Pre Op ABX Message 1 EACH MISC MISCELLANE ONE; +SODIUM CHLORIDE 0.9% 500 ML in EMPTY BAG 1 BAG IV PRN; +diphenhydrAMINE 25 MG CAP PO ONE; +diphenhydrAMINE 50 MG/ML 1 ML VIAL IVP ONE
[2017-10-03 07:51] VITALS: TEMP 97.7
[2017-10-03 08:14] LABS: Basophils # (A) 0.1 k/uL (0-0.2); Basophils % (A) 1 %; Eosinophils # (A) 0.3 k/uL (0-0.7); Eosinophils % (A) 3 %; HCT 39.3 % (34.0-46.0); HGB 13.1 gm/dL (11.4-16.0); Lymphocytes # (A) 3.5 k/uL (1.0-4.8); Lymphocytes % (A) 36 %; MCH 30.7 pg (25.0-35.0); MCHC 33.2 g/dL (31.0-37.0); MCV 92.5 fL (80.0-100.0); Mean Platelet Volume 7.5; Monocytes # (A) 0.8 k/uL (0-1.0); Monocytes % (A) 9 %; Neutrophils # (A) 4.9 k/uL (1.3-7.7); Neutrophils % (A) 50 %; Platelet Count 222 k/uL (150-450); RBC 4.25 m/uL (3.80-5.40); RDW 14.2 % (11.5-15.5); WBC 9.7 k/uL (3.8-10.6)
[2017-10-03 08:25] VITALS: RESP 18
[2017-10-03 08:25] LABS: ALT 29 U/L (9-52); AST 31 U/L (14-36); Albumin 3.9 g/dL (3.5-5.0); Alkaline Phosphatase 85 U/L (38-126); Anion Gap 12 mmol/L; Bilirubin, Delta 0.3 mg/dL (0.0-0.2); Bilirubin,Unconjugated 0.2 mg/dL (0.0-1.1); Blood Urea Nitrogen 21 mg/dL (7-17); Calcium 9.4 mg/dL (8.4-10.2); Carbon Dioxide 23 mmol/L (22-30); Chloride 107 mmol/L (98-107); Glucose 89 mg/dL (74-99); Potassium 4.6 mmol/L (3.5-5.1); Sodium 142 mmol/L (137-145); Total Bilirubin 0.5 mg/dL (0.2-1.3); Total Protein 7.4 g/dL (6.3-8.2)
[2017-10-03 08:40] VITALS: PULSE 71
[2017-10-03 09:14] VITALS: BP 111/65
[2017-10-03 11:22] LABS: Appearance,Urine Clear (Clear); Bilirubin,Urine Negative (Negative); Blood,Urine Negative (Negative); Color,Urine Light Yellow; Glucose,Urine (UA) Negative (Negative); Ketones,Urine Negative (Negative); Leukocyte Esterase,Urine Negative (Negative); Nitrite,Urine Negative (Negative); Protein,Urine Negative (Negative); Specific Gravity,Urine 1.005 (1.001-1.035); Urobilinogen,Urine <2.0 mg/dL (<2.0)
[2017-10-03 11:41] LABS: Erythrocyte Sedimentation Rate 12 mm/hr (0-20)
== END | disposition home or self-care (01) ==
LOC: PROCWHC3 07:13
PROVIDERS: ATTEND Internal Medicine Rheumatology
DX: M06.89 Other specified rheumatoid arthritis, multiple sites (principal)
CPT/HCPCS: 80053; 85652; 82248; 85025; 81003; 96413; 96415; 36415; J1745

== ENCOUNTER → 2017-11-21 | Outpatient (CLI) | payer MEDICARE ==
[2017-11-21 07:42] VITALS: RESP 16; TEMP 97.8
[2017-11-21 08:00] LABS: INR 2.7 (<1.2); Prothrombin Time 24.5 sec (9.0-12.0)
[2017-11-21 08:12] LABS: Calcium 9.4 mg/dL (8.4-10.2); Potassium 4.5 mmol/L (3.5-5.1); Total Bilirubin 0.6 mg/dL (0.2-1.3); Total Protein 7.5 g/dL (6.3-8.2)
[2017-11-21 08:38] LABS: Basophils # (A) 0.1 k/uL (0-0.2); Basophils % (A) 1 %; Eosinophils # (A) 0.3 k/uL (0-0.7); Eosinophils % (A) 4 %; HCT 38.2 % (34.0-46.0); HGB 12.9 gm/dL (11.4-16.0); Lymphocytes # (A) 2.3 k/uL (1.0-4.8); Lymphocytes % (A) 31 %; MCHC 33.7 g/dL (31.0-37.0); MCV 88.8 fL (80.0-100.0); Mean Platelet Volume 8.2; Monocytes # (A) 0.7 k/uL (0-1.0); Monocytes % (A) 10 %; Neutrophils # (A) 3.7 k/uL (1.3-7.7); Neutrophils % (A) 51 %; Platelet Count 200 k/uL (150-450); RDW 13.8 % (11.5-15.5); WBC 7.2 k/uL (3.8-10.6)
[2017-11-21 09:16] VITALS: BP 134/70; PULSE 72
[2017-11-21 09:55] LABS: Erythrocyte Sedimentation Rate 36 mm/hr (0-20)
[2017-11-21 10:24] LABS: Appearance,Urine Clear (Clear); Bilirubin,Urine Negative (Negative); Blood,Urine Negative (Negative); Color,Urine Light Yellow; Glucose,Urine (UA) Negative (Negative); Ketones,Urine Negative (Negative); Leukocyte Esterase,Urine Negative (Negative); Nitrite,Urine Negative (Negative); Protein,Urine Negative (Negative); Specific Gravity,Urine 1.005 (1.001-1.035); Urobilinogen,Urine <2.0 mg/dL (<2.0)
== END | disposition home or self-care (01) ==
LOC: PROCWHC3 07:23
PROVIDERS: ATTEND Internal Medicine Rheumatology
DX: M06.89 Other specified rheumatoid arthritis, multiple sites (principal); I48.0 Paroxysmal atrial fibrillation
CPT/HCPCS: 80053; 85652; 85025; 85610; 81003; 96413; 96415; J1745

== ENCOUNTER → 2018-01-06 | Outpatient (CLI) | payer MEDICARE ==
--- NOTE | 2018-01-06 09:25 | CT ---
EXAMINATION TYPE: CT chest w con DATE OF EXAM: 01/06/2018 COMPARISON: HRCT 09/18/2017 and radiograph 01/19/2016. HISTORY: 67-year-old female for initial breath, Unspecified asthma with acute exacerbation TECHNIQUE: Contiguous axial scanning of the chest after the administration of 100 mL of Isovue 300. Coronal/sagittal reconstructions performed. CT DLP: 360.2mGycm. Automatic exposure control utilized for a dose reduction. FINDINGS: The heart is upper limits of normal in size without pericardial effusion. Coronary vascular calcifica tions are present and are remarkable for coronary artery disease. Dense mitral annular calcifications are present. Aorta normal caliber with variant direct takeoff of the left vertebral artery directly from the aorti c arch. Aasj-pa-xzxifnsd atherosclerotic calcifications narrowing the origin of the left subclavian a rtery. Nonenlarged mediastinal lymph nodes measure up to 8 mm, unchanged from 09/18/2017. There a stable extensive interstitial thickening with a lower lung predominance but also involving th e lingula with corresponding ground glass opacities and mild bronchiectasis. Overall appearance is un changed from 09/18/2017. No carlo progression is seen. No new consolidation or pleural effusion. Visualized upper abdomen shows no gross abnormality. Bones: Anterior wedging of T8 vertebral body was present on the radiograph of 01/19/2016. No osseous d estructive process seen. IMPRESSION: 1. Stable extensive interstitial thickening and groundglass with a lower lung predominance and also i nvolving the lingula. There is associated mild basilar bronchiectasis. Correlate for interstitial pne umonitis such as NSIP or DIP. 2. No acute change identified. 3. Borderline heart size and CAD.
== END | disposition home or self-care (01) ==
LOC: RADCTMAIN 07:02
PROVIDERS: ATTEND Internal Medicine Critical Care Medicine
DX: J84.9 Interstitial pulmonary disease, unspecified (principal); J47.9 Bronchiectasis, uncomplicated; I25.10 Atherosclerotic heart disease of native coronary artery without angina pectoris; J45.901 Unspecified asthma with (acute) exacerbation
CPT/HCPCS: 36415; 71260; 82565; 84520

== ENCOUNTER → 2018-01-21 | Outpatient (CLI) | payer MEDICARE ==
[~2018-01-21] MED LIST changes: +INFLIXIMAB-DYYB 300 MG in SODIUM CHLORIDE 0.9% 250 ML IV NR; +INFLIXIMAB-DYYB 300 MG in SODIUM CHLORIDE 0.9% 250 ML IV ONE
[2018-01-21 08:59] VITALS: TEMP 98
[2018-01-21 09:30] LABS: Basophils % (A) 1 %; Eosinophils # (A) 0.3 k/uL (0-0.7); Eosinophils % (A) 4 %; HCT 40.7 % (34.0-46.0); HGB 13.4 gm/dL (11.4-16.0); Lymphocytes % (A) 25 %; MCH 29.1 pg (25.0-35.0); MCV 88.2 fL (80.0-100.0); Mean Platelet Volume 8.3; Monocytes # (A) 0.7 k/uL (0-1.0); Monocytes % (A) 9 %; Neutrophils # (A) 4.9 k/uL (1.3-7.7); Neutrophils % (A) 60 %; Platelet Count 193 k/uL (150-450); RBC 4.61 m/uL (3.80-5.40); RDW 13.6 % (11.5-15.5); WBC 8.1 k/uL (3.8-10.6)
[2018-01-21 09:36] LABS: INR 3.1 (<1.2); Prothrombin Time 27.6 sec (9.0-12.0)
[2018-01-21 09:46] LABS: Albumin 4.2 g/dL (3.5-5.0); Bilirubin, Delta 0.3 mg/dL (0.0-0.2); Bilirubin,Unconjugated 0.3 mg/dL (0.0-1.1); Total Bilirubin 0.6 mg/dL (0.2-1.3); Total Protein 7.7 g/dL (6.3-8.2)
[2018-01-21 10:20] VITALS: BP 129/73; PULSE 65; RESP 16
[2018-01-21 11:58] LABS: Appearance,Urine Clear (Clear); Bilirubin,Urine Negative (Negative); Blood,Urine Negative (Negative); Color,Urine Light Yellow; Glucose,Urine (UA) Negative (Negative); Ketones,Urine Negative (Negative); Leukocyte Esterase,Urine Negative (Negative); Nitrite,Urine Negative (Negative); Protein,Urine Negative (Negative); Specific Gravity,Urine 1.006 (1.001-1.035); Urobilinogen,Urine <2.0 mg/dL (<2.0)
[2018-01-21 12:33] LABS: Erythrocyte Sedimentation Rate 44 mm/hr (0-20)
== END | disposition home or self-care (01) ==
LOC: PROCWHC3 08:11
PROVIDERS: ATTEND Internal Medicine Rheumatology
DX: M06.89 Other specified rheumatoid arthritis, multiple sites (principal)
CPT/HCPCS: 80076; 85652; 85025; 85610; 81003; 96413; 96415; 36415; Q5103

== ENCOUNTER → 2018-03-13 | Outpatient (CLI) | payer MEDICARE ==
[~2018-03-13] MED LIST changes: -ACETAMINOPHEN TAB 325 MG TAB PO ONE; -INFLIXIMAB-DYYB 300 MG in SODIUM CHLORIDE 0.9% 250 ML IV ONE; -diphenhydrAMINE 25 MG CAP PO ONE; -diphenhydrAMINE 50 MG/ML 1 ML VIAL IVP ONE
[2018-03-13 08:49] LABS: Basophils % (A) 1 %; Eosinophils # (A) 0.2 k/uL (0-0.7); Eosinophils % (A) 3 %; HCT 38.8 % (34.0-46.0); HGB 12.9 gm/dL (11.4-16.0); Lymphocytes # (A) 1.8 k/uL (1.0-4.8); Lymphocytes % (A) 25 %; MCH 29.9 pg (25.0-35.0); MCHC 33.3 g/dL (31.0-37.0); MCV 89.5 fL (80.0-100.0); Mean Platelet Volume 7.9; Monocytes # (A) 0.7 k/uL (0-1.0); Monocytes % (A) 10 %; Neutrophils # (A) 4.4 k/uL (1.3-7.7); Neutrophils % (A) 60 %; Platelet Count 187 k/uL (150-450); RBC 4.33 m/uL (3.80-5.40); RDW 14.4 % (11.5-15.5); WBC 7.3 k/uL (3.8-10.6)
[2018-03-13 08:55] LABS: INR 2.7 (<1.2)
[2018-03-13 08:58] LABS: Appearance,Urine Clear (Clear); Bilirubin,Urine Negative (Negative); Blood,Urine Negative (Negative); Color,Urine Light Yellow; Glucose,Urine (UA) Negative (Negative); Ketones,Urine Negative (Negative); Leukocyte Esterase,Urine Negative (Negative); Nitrite,Urine Negative (Negative); Protein,Urine Negative (Negative); Specific Gravity,Urine 1.004 (1.001-1.035); Urobilinogen,Urine <2.0 mg/dL (<2.0)
[2018-03-13 09:00] VITALS: TEMP 97.6
[2018-03-13 09:05] LABS: Bilirubin, Delta 0.4 mg/dL (0.0-0.2); Bilirubin,Unconjugated 0.2 mg/dL (0.0-1.1); C Reactive Protein 11.7 mg/L (<10.0); Calcium 9.3 mg/dL (8.4-10.2); Potassium 3.9 mmol/L (3.5-5.1); Total Bilirubin 0.6 mg/dL (0.2-1.3); Total Protein 7.4 g/dL (6.3-8.2)
[2018-03-13 09:45] LABS: Erythrocyte Sedimentation Rate 25 mm/hr (0-20)
[2018-03-13 10:17] VITALS: BP 106/66; PULSE 69; RESP 14
== END | disposition home or self-care (01) ==
LOC: PROCWHC3 08:15
PROVIDERS: ATTEND Internal Medicine Rheumatology
DX: M06.89 Other specified rheumatoid arthritis, multiple sites (principal)
CPT/HCPCS: 80053; 85652; 82248; 85025; 85610; 86140; 81003; 96413; 96415; 36415; Q5103

== ENCOUNTER → 2018-04-24 | Outpatient (CLI) | payer MEDICARE ==
[~2018-04-24] MED LIST changes: +ACETAMINOPHEN TAB 325 MG TAB PO ONE; +diphenhydrAMINE 25 MG CAP PO ONE
[2018-04-24 08:50] VITALS: RESP 16; TEMP 98.2
[2018-04-24 08:52] LABS: Basophils # (A) 0.1 k/uL (0-0.2); Basophils % (A) 1 %; Eosinophils # (A) 0.2 k/uL (0-0.7); Eosinophils % (A) 4 %; HCT 38.6 % (34.0-46.0); Lymphocytes # (A) 1.6 k/uL (1.0-4.8); Lymphocytes % (A) 30 %; MCH 30.3 pg (25.0-35.0); MCHC 33.6 g/dL (31.0-37.0); Mean Platelet Volume 8.2; Monocytes # (A) 0.6 k/uL (0-1.0); Monocytes % (A) 11 %; Neutrophils # (A) 2.8 k/uL (1.3-7.7); Neutrophils % (A) 51 %; Platelet Count 180 k/uL (150-450); RBC 4.29 m/uL (3.80-5.40); RDW 13.7 % (11.5-15.5); WBC 5.5 k/uL (3.8-10.6)
[2018-04-24 09:03] LABS: INR 2.4 (<1.2); Prothrombin Time 21.3 sec (9.0-12.0)
[2018-04-24 09:06] LABS: ALT 26 U/L (9-52); AST 42 U/L (14-36); Albumin 3.7 g/dL (3.5-5.0); Alkaline Phosphatase 96 U/L (38-126); Anion Gap 6 mmol/L; Bilirubin, Delta 0.3 mg/dL (0.0-0.2); Bilirubin,Unconjugated 0.3 mg/dL (0.0-1.1); Blood Urea Nitrogen 11 mg/dL (7-17); Carbon Dioxide 23 mmol/L (22-30); Chloride 111 mmol/L (98-107); Glucose 97 mg/dL (74-99); Potassium 4.6 mmol/L (3.5-5.1); Sodium 140 mmol/L (137-145); Total Bilirubin 0.6 mg/dL (0.2-1.3); Total Protein 7.4 g/dL (6.3-8.2)
[2018-04-24 09:20] LABS: C Reactive Protein 7.9 mg/L (<10.0)
[2018-04-24 10:26] VITALS: BP 113/76; PULSE 74
[2018-04-24 11:45] LABS: Appearance,Urine Clear (Clear); Bilirubin,Urine Negative (Negative); Blood,Urine Negative (Negative); Color,Urine Yellow; Glucose,Urine (UA) Negative (Negative); Ketones,Urine Negative (Negative); Leukocyte Esterase,Urine Trace (Negative); Mucus,Urine Rare /hpf; Nitrite,Urine Negative (Negative); Protein,Urine Negative (Negative); RBC,Urine 1 /hpf (0-5); Specific Gravity,Urine 1.009 (1.001-1.035); Squamous Epithelial Cell,Urine <1 /hpf (0-4); Urobilinogen,Urine <2.0 mg/dL (<2.0); WBC,Urine 4 /hpf (0-5)
[2018-04-24 12:02] LABS: Erythrocyte Sedimentation Rate 35 mm/hr (0-20)
== END | disposition home or self-care (01) ==
LOC: PROCWHC3 08:00
PROVIDERS: ATTEND Internal Medicine Rheumatology
DX: M06.89 Other specified rheumatoid arthritis, multiple sites (principal)
CPT/HCPCS: 80053; 85652; 82248; 85025; 85610; 86140; 81001; 96413; 96415; 36415; Q5103

== ENCOUNTER 2018-06-09 09:20 | Emergency (ER) | payer MEDICARE ==
[2018-06-09 09:30] VITALS: RESP 18; TEMP 98.2
[2018-06-09] MEDS ORDERED: SODIUM CHLORIDE 0.9% 1,000 ML IV ONE (09:49)
[2018-06-09] MEDS ORDERED: ORPHENADRINE 30 MG/ML 2 ML VIAL IVP STA (09:50)
--- NOTE | 2018-06-09 09:52 | ED ---
Back Pain HPI - General Chief Complaint: Back Pain/Injury Stated Complaint: Lower back pain Time Seen by Provider: 06/09/18 09:36 Source: patient, RN notes reviewed, old records reviewed Limitations: no limitations - History of Present Illness Initial Comments: Patient is a 68-year-old female presents emergency Department chief complaint of left-sided back pain, worse over the past week. She states it seems to be worse with movements. She was started on antibiotics for an infection from her right foot after she had surgery. She is been on Bactrim for the past week. Patient is concerned that her left-sided back pain could be related to her kidney. She is concerned that if she had a urinary tract infection and could be resistant because she is currently on antibiotics for the foot infection. Patient states that she's been having some slight diarrhea most likely related to her Bactrim use. Patient states that pain is worse with movements she denies any traumas or falls. She does not remember twisting or lifting anything to cause the back pain. Patient reports that she has had normal urination, no vomiting episodes. She states the pain radiates from the left side of her back all the way around towards the front of her abdomen. - Related Data Home Medications Medication Instructions Recorded Confirmed Cholecalciferol [Vitamin D3] 5,000 units PO DAILY 02/23/14 06/09/18 Pantoprazole Sodium [Protonix] 40 mg PO DAILY PRN 06/29/14 06/09/18 Warfarin [Coumadin] 5 mg PO SUMOWETHFR 03/14/17 06/09/18 Flecainide [Tambocor] 50 mg PO DAILY 04/25/17 06/09/18 Metoprolol Succinate (ER) [Toprol 50 mg PO DAILY 09/15/17 06/09/18 Xl] Warfarin [Coumadin] 2.5 mg PO TUSA 09/15/17 06/09/18 Infliximab-Dyyb [Inflectra] 30 mg IV Q42D 06/09/18 06/09/18 Montelukast [Singulair] 10 mg PO HS 06/09/18 06/09/18 Previous Rx's Medication Instructions Recorded HYDROcodone/APAP 5-325MG [[place] 1 tab PO Q6HR PRN #12 tab 06/09/18 5-325] Allergies Allergy/AdvReac Type Severity Reaction Status Date / Time No Known Allergies Allergy Verified 06/09/18 09:38 Review of Systems ROS Statement: Those systems with pertinent positive or pertinent negative responses have been documented in the HPI. ROS Other: All systems not noted in ROS Statement are negative. Past Medical History Past Medical History: Atrial Fibrillation, GERD/Reflux, Rheumatoid Arthritis (RA ) Additional Past Medical History / Comment(s): NEW ONSET A-FIB RVR History of Any Multi-Drug Resistant Organisms: None Reported Past Surgical History: Orthopedic Surgery, Tonsillectomy Additional Past Surgical History / Comment(s): CATARATS LENS IMPLANTS, RT FOOT REMOVED 3 NODULES, right foot bone removed 05/18/18. Right rotator cuff repair Past Anesthesia/Blood Transfusion Reactions: No Reported Reaction Additional Past Anesthesia/Blood Transfusion Reaction / Comment(s): VERTIGO ON A CRUISE Past Psychological History: No Psychological Hx Reported Smoking Status: Former smoker Past Alcohol Use History: Occasional Past Drug Use History: None Reported - Past Family History Father Family Medical History: Cancer, Neurologic Disorder Additional Family Medical History / Comment(s): ARRYTHMIA, CORNEAL IMPLANTS, LT EYE BLIND , PARKINSONS, FATHER HAS Mother Family Medical History: Cancer, Coronary Artery Disease (CAD), Myocardial Infarction (IA) Additional Family Medical History / Comment(s): CATARACTS, DETATCHED RETINA, GLAUCOMA, MACULAR DEGENERATION, STENTS, BOWEL RESECTION FOR DIVERTICULITIS, KATNIA KNEE REPLACEMENT, UTERINE CA/HYSTERECTOMY, Brother(s) Family Medical History: No Reported History Sister(s) Family Medical History: No Reported History General Exam - General Exam Comments Initial Comments: 68-year-old female. Alert and oriented. No significant distress. Limitations: no limitations General appearance: alert, in no apparent distress Head exam: Present: atraumatic, normocephalic, normal inspection Eye exam: Present: normal appearance, PERRL, EOMI. Absent: scleral icterus, conjunctival injection, periorbital swelling ENT exam: Present: normal exam, mucous membranes moist Neck exam: Present: normal inspection. Absent: tenderness, meningismus, lymphadenopathy Respiratory exam: Present: normal lung sounds bilaterally. Absent: respiratory distress, wheezes, rales, rhonchi, stridor Cardiovascular Exam: Present: regular rate, normal rhythm, normal heart sounds. Absent: systolic murmur, diastolic murmur, rubs, gallop, clicks GI/Abdominal exam: Present: soft, normal bowel sounds, other (No bruits or pulsatile masses noted.). Absent: distended, tenderness, guarding, rebound, rigid Extremities exam: Present: normal inspection, full ROM, normal capillary refill , other (Normal pulse in all 4 extremity.). Absent: tenderness, pedal edema, joint swelling, calf tenderness Back exam: Present: normal inspection, tenderness (Patient is tenderness over the left thoracic paraspinal muscles and lumbar para spinal muscles.) Neurological exam: Present: alert, oriented X3, CN II-XII intact Psychiatric exam: Present: normal affect, normal mood Skin exam: Present: warm, dry, intact, normal color. Absent: rash Course Vital Signs 06/09/18 09:23 Temperature 98.2 F Pulse Rate 70 Respiratory 18 Rate Blood Pressure 123/78 O2 Sat by Pulse 98 Oximetry Medical Decision Making - Medical Decision Making 68-year-old female presents returns today with chief complaint of back pain, and some worse over the past few days. It seems to sweat movement. Patient was concerned for possibility of kidney issues. Patient received IV fluids and laboratory obtained. Her urinalysis shows no signs of infection. She does have moderate decrease her kidney function her GFR is 50. Patient's white blood cell count was normal. His liver enzymes were unremarkable. She is no abdominal tenderness. At this time Patient was given IV fluids and given IV Norflex. We did do thoracic and lumbar spine x-rays as well as a KUB. There is a significant compression deformity which appears chronic from her chest x- ray earlier 2018. Patient's pain is as read with slight movement. Consistent with muscle cells in nature. Most likely related to his current compression deformities. As this will discharge the Patient with a short course of pain medication. I discussed that she needs follow-up with her PCP in her primary care provider. - Lab Data Result diagrams: 06/09/18 10:12 06/09/18 10:12 Lab Results 06/09/18 06/09/18 06/09/18 Range/Units 10:12 10:12 10:12 WBC 7.2 (3.8-10.6) k/uL RBC 4.33 (3.80-5.40) m/uL Hgb 13.3 (11.4-16.0) gm/dL Hct 39.4 (34.0-46.0) % MCV 90.8 (80.0-100.0) fL MCH 30.7 (25.0-35.0) pg MCHC 33.8 (31.0-37.0) g/dL RDW 13.4 (11.5-15.5) % Plt Count 215 (150-450) k/uL Neutrophils % 58 % Lymphocytes % 29 % Monocytes % 8 % Eosinophils % 4 % Basophils % 1 % Neutrophils # 4.1 (1.3-7.7) k/uL Lymphocytes # 2.1 (1.0-4.8) k/uL Monocytes # 0.5 (0-1.0) k/uL Eosinophils # 0.3 (0-0.7) k/uL Basophils # 0.1 (0-0.2) k/uL Sodium 139 (137-145) mmol/L Potassium 4.7 (3.5-5.1) mmol/L Chloride 106 (98-107) mmol/L Carbon Dioxide 21 L (22-30) mmol/L Anion Gap 12 mmol/L BUN 9 (7-17) mg/dL Creatinine 1.12 H (0.52-1.04) mg/dL Est GFR (CKD-EPI)AfAm 58 (>60 ml/min/1.73 sqM) Est GFR (CKD-EPI)NonAf 50 (>60 ml/min/1.73 sqM) Glucose 92 (74-99) mg/dL Calcium 9.5 (8.4-10.2) mg/dL Total Bilirubin 0.6 (0.2-1.3) mg/dL AST 36 (14-36) U/L ALT 24 (9-52) U/L Alkaline Phosphatase 97 (38-126) U/L Total Protein 8.1 (6.3-8.2) g/dL Albumin 4.1 (3.5-5.0) g/dL Lipase 95 (23-300) U/L Urine Color Light Yellow Urine Appearance Clear (Clear) Urine pH 6.0 (5.0-8.0) Ur Specific [place] 1.005 (1.001-1.035) Urine Protein Negative (Negative) Urine Glucose (UA) Negative (Negative) Urine Ketones Negative (Negative) Urine Blood Negative (Negative) Urine Nitrite Negative (Negative) Urine Bilirubin Negative (Negative) Urine Urobilinogen <2.0 (<2.0) mg/dL Ur Leukocyte Esterase Negative (Negative) - Radiology Data Radiology results: report reviewed Chronic severe compression deformity in the mid thoracic spine which is stable relatively chest x-ray on 12/30/2017. Multilevel degenerative change with facet arthropathy noted. KUB shows nonspecific abdomen. Correlate for chronic interstitial lung disease. Disposition Clinical Impression: Back pain, Compression deformity of vertebra Disposition: HOME SELF-CARE Condition: Good Instructions: Acute Low Back Pain (ED) Additional Instructions: Patient advised follow-up with primary care provider. Take the pain medications prescribed. Return to emergency department if any alarming symptoms occur. Prescriptions: HYDROcodone/APAP 5-325MG [[place] 5-325] 1 tab PO Q6HR PRN #12 tab PRN Reason: Pain Is patient prescribed a controlled substance at d/c from ED?: Yes When asked, does pt state using other controlled substances?: Yes If prescribed controlled substance>3 days was MAPS reviewed?: Prescribed <3 Days If opioid is for acute pain is fill amount 7 days or less?: Yes If Rx opioid, was Start Talking consent form obtained?: Yes Referrals: Les Esteban MD [Primary Care Provider] - 1-2 days Jaqueline Boles DO [Doctor of Osteopathic Medicine] - 1-2 days Time of Disposition: 11:18
[2018-06-09] MEDS ORDERED: SODIUM CHLORIDE 0.9% 1,000 ML IV SCH (10:00)
[2018-06-09 10:39] LABS: Basophils # (A) 0.1 k/uL (0-0.2); Basophils % (A) 1 %; Eosinophils # (A) 0.3 k/uL (0-0.7); Eosinophils % (A) 4 %; HCT 39.4 % (34.0-46.0); HGB 13.3 gm/dL (11.4-16.0); Lymphocytes # (A) 2.1 k/uL (1.0-4.8); Lymphocytes % (A) 29 %; MCH 30.7 pg (25.0-35.0); MCHC 33.8 g/dL (31.0-37.0); MCV 90.8 fL (80.0-100.0); Mean Platelet Volume 8.2; Monocytes # (A) 0.5 k/uL (0-1.0); Monocytes % (A) 8 %; Neutrophils # (A) 4.1 k/uL (1.3-7.7); Neutrophils % (A) 58 %; Platelet Count 215 k/uL (150-450); RBC 4.33 m/uL (3.80-5.40); RDW 13.4 % (11.5-15.5); WBC 7.2 k/uL (3.8-10.6)
[2018-06-09 10:41] LABS: Appearance,Urine Clear (Clear); Bilirubin,Urine Negative (Negative); Blood,Urine Negative (Negative); Color,Urine Light Yellow; Glucose,Urine (UA) Negative (Negative); Ketones,Urine Negative (Negative); Leukocyte Esterase,Urine Negative (Negative); Nitrite,Urine Negative (Negative); Protein,Urine Negative (Negative); Specific Gravity,Urine 1.005 (1.001-1.035); Urobilinogen,Urine <2.0 mg/dL (<2.0)
[2018-06-09 10:50] LABS: Albumin 4.1 g/dL (3.5-5.0); Calcium 9.5 mg/dL (8.4-10.2); Potassium 4.7 mmol/L (3.5-5.1); Total Bilirubin 0.6 mg/dL (0.2-1.3); Total Protein 8.1 g/dL (6.3-8.2)
--- NOTE | 2018-06-09 11:08 | XR ---
EXAMINATION TYPE: XR KUB DATE OF EXAM: 06/09/2018 COMPARISON: NONE HISTORY: Pain TECHNIQUE: One view abdominal series FINDINGS: The osseous structures are intact. The bowel gas pattern is nonspecific. Scoliotic curvature with de generative changes spine. Reticular changes involving the lungs. Chronic rib deformities on the right . Arthropathy of the hips. Calcification the pelvis may be vascular. IMPRESSION: 1. Nonspecific abdomen 2. Correlate for chronic interstitial lung disease.
--- NOTE | 2018-06-09 11:10 | XR ---
EXAM TYPE: LUMBAR SPINE X RAY SERIES COMPARISON: NONE HISTORY: Pain TECHNIQUE: 4 views are submitted. FINDINGS: Alignment is anatomic. The pedicles are intact. The transverse processes are intact. There is no s pondylolisthesis. Diffuse osteopenia with hypertrophic and degenerative changes noted. Facet arthrop athy seen. Degenerative disc disease noted. Atherosclerotic change of the vasculature. IMPRESSION: 1. Multilevel degenerative change and facet arthropathy.
--- NOTE | 2018-06-09 11:12 | XR ---
EXAMINATION TYPE: XR thoracic spine 2V DATE OF EXAM: 06/09/2018 COMPARISON: Chest x-ray 12/30/2017 HISTORY: Pain Alignment is anatomic. There is no compression deformities. Atherosclerotic change aorta. Coarsened interstitium suggests chronic interstitial lung disease. There is a compression deformity in the midt horacic spine of indeterminate age. Multilevel mild to moderate degenerative disc disease. IMPRESSION: 1. Chronic severe compression deformity midthoracic spine stable relative to the chest x-ray 8
[2018-06-09] MEDS ORDERED: MORPHINE SULFATE 4 MG/ML SYRINGE IVP STA (11:29)
[2018-06-09 12:25] VITALS: BP 124/84; PULSE 83
== END 2018-06-09 12:22 | disposition home or self-care (01) ==
LOC: EC 09:20
DX: M43.8X4 Other specified deforming dorsopathies, thoracic region (principal); R19.7 Diarrhea, unspecified; I48.91 Unspecified atrial fibrillation; K21.9 Gastro-esophageal reflux disease without esophagitis; M06.9 Rheumatoid arthritis, unspecified; Z87.891 Personal history of nicotine dependence; Z79.01 Long term (current) use of anticoagulants; Z79.899 Other long term (current) drug therapy
CPT/HCPCS: 36415; 80053; 83690; 85025; 81003; 72070; 72100; 74018; 99284; 96374; 96375; 96361 ×2; J2270; J2360

== ENCOUNTER → 2018-06-12 | Outpatient (CLI) | payer MEDICARE ==
[~2018-06-12] MED LIST changes: -ACETAMINOPHEN TAB 325 MG TAB PO ONE; -diphenhydrAMINE 25 MG CAP PO ONE
[2018-06-12 08:40] VITALS: RESP 16; TEMP 98.2
[2018-06-12 08:58] LABS: Basophils # (A) 0.1 k/uL (0-0.2); Basophils % (A) 1 %; Eosinophils # (A) 0.4 k/uL (0-0.7); Eosinophils % (A) 6 %; HGB 12.9 gm/dL (11.4-16.0); Lymphocytes # (A) 1.8 k/uL (1.0-4.8); Lymphocytes % (A) 29 %; MCV 90.9 fL (80.0-100.0); Monocytes # (A) 0.5 k/uL (0-1.0); Monocytes % (A) 8 %; Neutrophils # (A) 3.3 k/uL (1.3-7.7); Neutrophils % (A) 54 %; Platelet Count 230 k/uL (150-450); RBC 4.29 m/uL (3.80-5.40); RDW 13.3 % (11.5-15.5)
[2018-06-12 09:07] LABS: INR 2.6 (<1.2); Prothrombin Time 23.4 sec (9.0-12.0)
[2018-06-12 09:09] LABS: Albumin 3.9 g/dL (3.5-5.0); Bilirubin, Delta 0.4 mg/dL (0.0-0.2); Bilirubin,Unconjugated 0.1 mg/dL (0.0-1.1); Calcium 9.6 mg/dL (8.4-10.2); Potassium 4.5 mmol/L (3.5-5.1); Total Bilirubin 0.5 mg/dL (0.2-1.3); Total Protein 7.8 g/dL (6.3-8.2)
[2018-06-12 10:23] LABS: Erythrocyte Sedimentation Rate 79 mm/hr (0-20)
[2018-06-12 10:25] VITALS: BP 121/82; PULSE 71
[2018-06-12 12:10] LABS: Appearance,Urine Clear (Clear); Bilirubin,Urine Negative (Negative); Blood,Urine Negative (Negative); Color,Urine Yellow; Glucose,Urine (UA) Negative (Negative); Ketones,Urine Negative (Negative); Leukocyte Esterase,Urine Small (Negative); Mucus,Urine Rare /hpf; Nitrite,Urine Negative (Negative); Protein,Urine Negative (Negative); RBC,Urine 1 /hpf (0-5); Specific Gravity,Urine 1.014 (1.001-1.035); Squamous Epithelial Cell,Urine <1 /hpf (0-4); Urobilinogen,Urine <2.0 mg/dL (<2.0); WBC,Urine <1 /hpf (0-5)
== END | disposition home or self-care (01) ==
LOC: PROCWHC3 07:51
PROVIDERS: ATTEND Internal Medicine Rheumatology
DX: M06.89 Other specified rheumatoid arthritis, multiple sites (principal)
CPT/HCPCS: 80053; 85652; 82248; 85025; 85610; 81001; 96413; 96415; 36415; Q5103

== ENCOUNTER → 2018-06-16 | Outpatient (CLI) | payer MEDICARE ==
[2018-06-16 15:11] VITALS: BP 109/73; PULSE 67; TEMP 97.8; BMI 26.5
--- NOTE | 2018-06-16 15:46 | P.HPOB ---
History of Present Illness H&P Date: 06/16/18 Chief Complaint: The patient is here for her routine gynecologic exam and mammogram. This is a 68-year-old G0 with an LMP of 2005. The patient is without gynecologic complaints and denies any postmenopausal bleeding. Review of Systems Weight has been stable. She denies respiratory, cardiac and G.I. problems. She denies maltreatment or problems with falling. : she denies any significant problems with urinary leakage. 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 History of Any Multi-Drug Resistant Organisms: None Reported Past Surgical History: Orthopedic Surgery (Right rotator cuff), Tonsillectomy Additional Past Surgical History / Comment(s): CATARATS LENS IMPLANTS, RT FOOT REMOVED 3 NODULES, right foot bone removed 05/18/18. Colonoscopy 2016(2nd) to repeat in 5 years. Past Anesthesia/Blood Transfusion Reactions: No Reported Reaction Additional Past Anesthesia/Blood Transfusion Reaction / Comment(s): VERTIGO ON A CRUISE Past Psychological History: No Psychological Hx Reported Smoking Status: Former smoker (STARTED SMOKING AT AGE 19 TO AGE 29 SMOKED 1 PACK PER MONTH.) Past Alcohol Use History: Occasional (4 per week) Past Drug Use History: None Reported Additional History: The patient is retired and previously worked at [employer]. She is in a homosexual relationship and has been with her partner since 2010 and lives with her. - Past Family History Father Family Medical History: Cancer (Prostate), Neurologic Disorder Additional Family Medical History / Comment(s): ARRYTHMIA, CORNEAL IMPLANTS, LT EYE BLIND , PARKINSONS, FATHER HAS Mother Family Medical History: Cancer (Uterine cancer), Coronary Artery Disease (CAD), Diabetes Mellitus, Myocardial Infarction (IA) Additional Family Medical History / Comment(s): CATARACTS, DETATCHED RETINA, GLAUCOMA, MACULAR DEGENERATION, STENTS, BOWEL RESECTION FOR DIVERTICULITIS, KATINA KNEE REPLACEMENT. Brother(s) Family Medical History: No Reported History Sister(s) Family Medical History: No Reported History Medications and Allergies Home Medications Medication Instructions Recorded Confirmed Type Cholecalciferol [Vitamin D3] 5,000 units PO DAILY 02/23/14 06/16/18 History Pantoprazole Sodium [Protonix] 40 mg PO DAILY PRN 06/29/14 06/16/18 History Warfarin [Coumadin] 5 mg PO SUMOWETHFR 03/14/17 06/16/18 History Flecainide [Tambocor] 50 mg PO BID 04/25/17 06/16/18 History Metoprolol Succinate (ER) [Toprol 50 mg PO DAILY 09/15/17 06/16/18 History Xl] Warfarin [Coumadin] 2.5 mg PO TUSA 09/15/17 06/16/18 History Infliximab-Dyyb [Inflectra] 30 mg IV Q42D 06/09/18 06/16/18 History Montelukast [Singulair] 10 mg PO HS 06/09/18 06/16/18 History Allergies Allergy/AdvReac Type Severity Reaction Status Date / Time No Known Allergies Allergy Verified 06/16/18 15:06 Exam Vital Signs Temp Pulse BP 06/16/18 15:06 97.8 F 67 109/73 Intake and Output 06/16/18 06/16/18 06/16/18 06:59 14:59 22:59 Other: Weight 68.039 kg Height 5'3", BMI 26.6. This is a well-developed well-nourished white female who is alert and oriented times 3 in no acute distress. HEENT: Within normal limits. NECK: Supple without mass or thyromegaly. CHEST AND LUNGS: Clear to auscultation. HEART: Regular rate and rhythm. BREASTS: Are without mass or discharge. AXILLARY EXAM: Negative for adenopathy. BACK: Negative for CVA tenderness. ABDOMEN: Soft, nontender, without palpable masses. PELVIC EXAM: Normal external genitalia with moderate atrophy. Cervix and vagina appear normal with moderate atrophy. There is no unusual discharge. There is no evidence of prolapse. The uterus is midposition, nongravid size and nontender. There are no palpable adnexal masses or tenderness. RECTAL EXAM: rectovaginal exam is negative for mass or tenderness and is negative for occult blood. EXTREMITIES: Nontender. IMPRESSION: 1. 68-year-old menopausal female with normal gynecologic exam. 2. History of osteopenia. PLAN: 1. Pap smear was deferred since she had a normal one last year. 2. Self breast awareness was discussed with the patient. 3. Screening mammogram will be done today. 4. Osteoporosis prevention was discussed. We will plan on repeating bone density screening next year. 5. She states she will get the flu shot in the near future. 6. She will return in one year.
--- NOTE | 2018-06-17 11:02 | MM ---
Reason for exam: screening (asymptomatic). Last mammogram was performed 1 year and 1 month ago. History: Patient is postmenopausal and is nulliparous. Benign excisional biopsy of the left breast, 2016. Physical Findings: A clinical breast exam by your physician is recommended on an annual basis and results should be correlated with mammographic findings. MG 3D Screening Mammo W/Cad Bilateral CC and MLO view(s) were taken. Prior study comparison: May 27, 2017, bilateral MG 3d screening mammo w/cad. September 05, 2016, left breast MG 3d diag mammo w/cad LT. There are scattered fibroglandular densities. There are benign appearing round calcifications bilaterally. No suspicious abnormality. Left biopsy marker noted. No significant changes when compared with prior studies. ASSESSMENT: Benign, BI-RAD 2 RECOMMENDATION: Routine screening mammogram of both breasts in 1 year.
== END | disposition home or self-care (01) ==
LOC: WWCWWP 14:36
PROVIDERS: ATTEND Obstetrics & Gynecology
DX: Z12.31 Encounter for screening mammogram for malignant neoplasm of breast (principal)
CPT/HCPCS: 77063; 77067

== ENCOUNTER 2018-07-15 12:44 | Day surgery (SDC) | payer MEDICARE ==
[2018-07-09 16:14] VITALS: BMI 25.8
[~2018-07-15 12:44] MED LIST changes: +DEXAMETHASONE SOD PHOSPHATE 10 MG/ML 1 ML VIAL IV ONE; -INFLIXIMAB-DYYB 300 MG in SODIUM CHLORIDE 0.9% 250 ML IV NR; +LACTATED RINGERS 1,000 ML IV SCH; +LIDOCAINE 1% 20 ML VIAL (10MG/ML) FOR IV START INTRADERMA PRN; +ONDANSETRON 4 MG/2 ML VIAL IVP ONE; +SCOPOLAMINE 1.5MG/72HR PATCH TRANSDERM ONE; -SODIUM CHLORIDE 0.9% 500 ML in EMPTY BAG 1 BAG IV PRN; +ceFAZolin IN SWFI 2 GM/20 ML SYRINGE IVP ONE
[2018-07-15] MEDS ORDERED: fentaNYL (PF) 50 MCG/ML 2 ML AMP IV ONE (14:35)
[2018-07-15] MEDS ORDERED: GLYCOPYRROLATE 0.2 MG/ML 2 ML VIAL ONE (17:10)
[2018-07-15] MEDS ORDERED: LIDOCAINE 1% INJ 10MG/ML (20 ML MDV) ONE (17:10)
[2018-07-15] MEDS ORDERED: fentaNYL (PF) 50 MCG/ML 2 ML AMP ONE (17:10)
[2018-07-15] MEDS ORDERED: HYDROmorphone (PF) 1 MG/ML ONE (17:10)
[2018-07-15] MEDS ORDERED: PROPOFOL 10 MG/ML 20 ML VIAL IV ONE (17:10)
[2018-07-15] MEDS ORDERED: SUCCINYLCHOLINE CHLORIDE 100 MG/5 ML SYR IV ONE (17:10)
[2018-07-15] MEDS ORDERED: ePHEDrine SULFATE/0.9% NACL/PF 50 MG/5 ML SYRINGE IV ONE (17:10)
[2018-07-15] MEDS ORDERED: MIDAZOLAM 2 MG/2 ML VIAL ONE (17:10)
[2018-07-15] MEDS ORDERED: IOPAMIDOL-370 50ML BTL MISCELLANE ONE (17:40)
[2018-07-15] MEDS ORDERED: LACTATED RINGERS 1,000 ML IV ONE ×2 (17:41→19:33)
[2018-07-15] MEDS ORDERED: BUPIVACAINE (PF) 0.25% 30 ML VIAL SQ ONE (17:41)
[2018-07-15] MEDS ORDERED: WARFARIN 5 MG TAB PO SCH (18:00)
[2018-07-15] MEDS ORDERED: ONDANSETRON 4 MG/2 ML VIAL IVP PRN (18:08)
[2018-07-15] MEDS ORDERED: KETOROLAC 30 MG/ML 1 ML VIAL IVP PRN (18:08)
[2018-07-15] MEDS ORDERED: HYDROcodone/APAP 5-325MG 1 EACH TAB PO PRN (18:08)
[2018-07-15] MEDS ORDERED: HYDROmorphone 1 MG/ML 1 ML SYRINGE IVP PRN ×2 (18:08)
[2018-07-15] MEDS ORDERED: PANTOPRAZOLE 40 MG TABLET PO PRN (18:11)
[2018-07-15] MEDS ORDERED: SODIUM CHLORIDE 0.9% 1,000 ML IV SCH (18:15)
[2018-07-15] MEDS ORDERED: INFLIXIMAB-DYYB 100 MG VIAL IV SCH (18:15)
--- NOTE | 2018-07-15 18:19 | P.OP ---
Date of Procedure: 07/15/18 Preoperative Diagnosis: L4 acute vertebral compression fracture, traumatic due to a fall Postoperative Diagnosis: Same Anesthesia: GETA Pathology: other (Vertebral body biopsy of L4 sent to pathology) Condition: stable Disposition: PACU Description of Procedure: BRIEF OPERATIVE NOTE Preoperative Diagnosis: Vertebral compression fracture, L4, acute traumatic due to fall Postoperative Diagnosis: Same Procedure: Kyphoplasty of L4 Vertebral body biopsy of L4 Use of biplanar fluoroscopic guidance Surgeon: Dr. Boles Steward/Stewardess Night: Dickson CRUZ Anesthesia: General anesthesia Estimated blood loss: Less than 10 mL Specimen: Vertebral body biopsy sent to pathology in formalin Complications: None apparent Components implanted: Bone cement Disposition: To recovery room in good stable condition. OPERATIVE INDICATIONS The patient has been having issues in their back ever since sustaining an injury. Over the past 4 weeks should been trying to do conservative treatment but is has been having severe debilitating pain at her back due to the fracture despite brace use and conservative management. The patient has been through conservative treatment. They attempted conservative care with bracing however they're not having any benefit despite brace use. They continue to have significant pain and debility due to their fracture. We discussed various treatment options including surgery, and the patient wishes to proceed with surgery We discussed the risk, patient's alternatives and benefits of surgery including but not limited to, risk of bleeding risk of infection, risk of need for further surgery, risk of decreased, loss of motion, loss of function, cement extravasation, nerve damage, paralysis, heart attack, blindness and . OPERATIVE SUMMARY After discussing all the risks, patient alternatives and benefits at length, the patient elected to proceed with surgical intervention, signed informed consent, and presented for their procedure. The patient was seen and examined in the preoperative holding area and the surgical site was marked. The patient was given antibiotics and brought to the operating room. The patient was sedated and intubated by anesthesia in standard fashion. The patient was positioned on to the operating room table in a prone position on the appropriate well-padded and well molded bilateral chest rolls. We were careful to pad any bony prominences and pressure points. We were careful to maintain the patient's cervical spine and good neutral alignment and position throughout. We used 2 C-arm machines to establish biplanar fluoroscopic guidance in AP and lateral positions. We were able to localize the fractures appropriately at L4. The patient was prepped and draped in a normal standard fashion. An appropriate timeout and keystone protocol performed. We were able to proceed with the surgery. The local wound area was infiltrated with local anesthetic. An incision was made over the lateral aspect of the pedicle bilaterally over the appropriate levels of L4 with a small 2 mm stab incision. Intraoperative fluoroscopy was taken which showed a marker at the appropriate level of L4. With the appropriate level positively confirmed, I was able to position a sharp trocar over the lateral aspect of the pedicle. As able to advance the trocar into the pedicle and into the posterior aspect of vertebral body being careful to avoid penetration cephalad caudad or medially. The trocar was placed appropriately into the posterior aspect of vertebral body at the appropriate levels of L4 bilaterally. This was confirmed with C-arm guidance. With the trocars bilaterally intact I was then able to take a bone biopsy with a biopsy punch or a bony drill. The biopsy specimen was passed off to be sent to pathology in formalin. I was then able to place the kyphoplasty balloon within the vertebral body. The position was checked on C-arm. I was able to inflate the balloon under low pressure and visualization with C-arm. The balloon was well enclosed within the vertebral body. The cement was prepared. With the cement at appropriate working condition the balloons were deflated and removed. I was able to place bony cement with trocar with the cement delivery device under low pressure. It had good fill within the vertebral body. There is no evidence of any extravasation of the cement posteriorly toward the canal. The cement was well contained at the appropriate levels. The cement was allowed to cure appropriately. I was able place approximately 6 mL of bone cement into vertebral body of L4. The trochars removed and final images were taken on C- arm. This showed the cement at the appropriate levels. We were able to proceed with closure. The wound was cleaned and dried and dressed with the appropriate dressing. The drapes were broken down. The patient was gently rolled back onto their hospital bed being careful to maintain their cervical spine and good neutral alignment and position. They were woken up by anesthesia, extubated, and brought to the recovery room in good stable condition. The patient will be admitted to the hospital for observation and for appropriate postoperative care, medical management and monitoring. We will continue to follow them closely about the postoperative course.
[2018-07-15] MEDS: HYDROmorphone 0.5 MG/0.5 ML SYRINGE IVP PRN ×3 (18:22→19:32)
[2018-07-15] MEDS ORDERED: MONTELUKAST 10 MG TAB PO SCH (21:00)
--- NOTE | 2018-07-15 22:42 | FL ---
EXAMINATION TYPE: FL guidance operating room DATE OF EXAM: 07/15/2018 CLINICAL HISTORY: Low back pain. TECHNIQUE: Fluoroscopy. COMPARISON: None. FINDINGS: Fluoroscopic guidance was provided during kyphoplasty procedure performed by Dr. Boles. A total of 1 minute 11 seconds of fluoroscopic time was utilized during the procedure and 2 spot image s are acquired. Images acquired show advancement of probe and subsequent cement opacification of the suspected L4 vertebra. IMPRESSION: As Above.
[2018-07-15] MEDS: FLECAINIDE 50 MG TAB PO SCH (22:45)
[2018-07-16] MEDS: ceFAZolin IN SWFI 2 GM/20 ML SYRINGE IVP SCH ×2 (00:09→08:43)
[2018-07-16 00:49] VITALS: RESP 16
[2018-07-16 07:17] LABS: INR 1.1 (<1.2); Prothrombin Time 11.1 sec (9.0-12.0)
--- NOTE | 2018-07-16 08:24 | P.DS ---
Providers Date of admission: 07/15/18 Attending physician: Jaqueline Boles Primary care physician: [facility] Course: The patient presented on the day of admission as per her operative note. She had sustained a traumatic acute L4 compression fracture due to a fall and was having severe pain and debility despite conservative treatment and bracing. We discussed treatment options including surgery and patient elected to proceed with surgical intervention and presented on they've her admission as per her operative note. She underwent a L4 vertebral body kyphoplasty as per her operative note. She does have some mild tingling at her right thigh but her strength is intact. Physical Exam The incision site is clean dry and intact. There is no erythema no drainage. There is no purulence no evidence of infection. There is no active drainage. There is a small amount of blood on one of the bandages but appears to be stable Abdomen soft and nontender. Chest has good excursion with deep inspiration and expiration. The patient has active and passive range of motion intact at the upper and lower extremities. There is no acute change in neurologic status. She has good strength in bilateral lower extremity dorsal flexion plantarflexion and EHL hip flexion and knee extension. Hospital Course Postoperative day #1 status post L4 vertebral body biopsy and kyphoplasty for an acute traumatic compression fracture due to a fall. The patient has been making good progress postoperatively. She feels her pain in her back has changed and she is happy with her results thus far. They have completed the prophylactic antibiotics without any signs or symptoms of infection. The patient has been able to advance their diet, and is tolerating diet adequately. The pain was initially controlled with IV medications and is now controlled appropriately with oral medications. The patient has been able to increase their mobilization. The patient has progressed appropriately. I think they are in good stable condition for discharge today. They will be sent home with appropriate prescriptions. I answered their questions to the best of my ability in a language that they can understand and they are agreeable with the plan. They will follow up as directed in approximately 2 weeks or sooner if she is having any problems. Patient Condition at Discharge: Good Plan - Discharge Summary Discharge Rx Participant: Yes New Discharge Prescriptions: No Action Cholecalciferol [Vitamin D3] 5,000 units PO DAILY Pantoprazole Sodium [Protonix] 40 mg PO DAILY PRN PRN Reason: Heartburn Warfarin [Coumadin] 5 mg PO SUMOWETHFR Flecainide [Tambocor] 50 mg PO BID Metoprolol Succinate (ER) [Toprol Xl] 50 mg PO DAILY Warfarin [Coumadin] 2.5 mg PO TUSA Montelukast [Singulair] 10 mg PO HS Infliximab-Dyyb [Inflectra] 300 mg IV Q42D HYDROcodone/APAP 5-325MG [[place] 5-325] 1 tab PO Q4HR PRN PRN Reason: Pain Discharge Medication List Cholecalciferol [Vitamin D3] 5,000 units PO DAILY 02/23/14 [History] Pantoprazole Sodium [Protonix] 40 mg PO DAILY PRN 06/29/14 [History] Warfarin [Coumadin] 5 mg PO SUMOWETHFR 03/14/17 [History] Flecainide [Tambocor] 50 mg PO BID 04/25/17 [History] Metoprolol Succinate (ER) [Toprol Xl] 50 mg PO DAILY 09/15/17 [History] Warfarin [Coumadin] 2.5 mg PO TUSA 09/15/17 [History] Infliximab-Dyyb [Inflectra] 300 mg IV Q42D 06/09/18 [History] Montelukast [Singulair] 10 mg PO HS 06/09/18 [History] HYDROcodone/APAP 5-325MG [[place] 5-325] 1 tab PO Q4HR PRN 07/15/18 [History] Follow up Appointment(s)/Referral(s): Jaqueline Boles DO [Doctor of Osteopathic Medicine] - 2 Weeks Activity/Diet/Wound Care/Special Instructions: Keep site clean. May shower with waterproof Tegaderm intact. On Friday May shower with area uncovered leave Steri-Strips intact and allow them to fray off on their own. Do not soak in a tub. May ambulate to tolerance. No heavy or rigorous activity. No repetitive bending twisting or lifting. Discharge Disposition: HOME SELF-CARE
[2018-07-16] MEDS: FLECAINIDE 50 MG TAB PO SCH (08:36)
[2018-07-16 08:58] VITALS: BP 110/72; PULSE 90; TEMP 99
[2018-07-16] MEDS ORDERED: CHOLECALCIFEROL 1,000 UNIT TAB PO SCH (09:00)
[2018-07-16] MEDS ORDERED: METOPROLOL SUCCINATE (ER) 50 MG TAB.ER.24H PO SCH (09:00)
[2018-07-18] MEDS ORDERED: WARFARIN 2.5 MG TAB PO SCH (18:00)
== END 2018-07-16 10:05 | disposition home or self-care (01) ==
LOC: OR 12:44 → 4SSUR 18:15 → OR 07-16 10:05
PROVIDERS: ATTEND Orthopaedic Surgery Orthopaedic Surgery of the Spine
DX: S32.040A Wedge compression fracture of fourth lumbar vertebra, initial encounter for closed fracture (principal); W19.XXXA Unspecified fall, initial encounter; M51.16 Intervertebral disc disorders with radiculopathy, lumbar region; M48.061 Spinal stenosis, lumbar region without neurogenic claudication; M47.26 Other spondylosis with radiculopathy, lumbar region; E66.3 Overweight; Z68.26 Body mass index [BMI] 26.0-26.9, adult; I48.91 Unspecified atrial fibrillation; Z79.01 Long term (current) use of anticoagulants; M06.9 Rheumatoid arthritis, unspecified; J45.909 Unspecified asthma, uncomplicated; Z87.891 Personal history of nicotine dependence; K21.9 Gastro-esophageal reflux disease without esophagitis; Z79.02 Long term (current) use of antithrombotics/antiplatelets; Z79.52 Long term (current) use of systemic steroids; Z79.899 Other long term (current) drug therapy
CPT/HCPCS: 94760; 85610; 88307; 88311; 22514; J2250; J2405; J2001; J3010; J1885; J1170 ×2; J0330; J2704; J0690 ×2; Q9967

== ENCOUNTER → 2018-07-21 | Outpatient (CLI) | payer MEDICARE | END | disposition home or self-care (01) | LOC: LABPAT 12:27 | PROVIDERS: ATTEND Orthopaedic Surgery Orthopaedic Surgery of the Spine | DX: Z01.812 Encounter for preprocedural laboratory examination (principal) | CPT/HCPCS: 36415; 86850; 86900; 86901 ==

== ENCOUNTER 2018-07-22 09:47 | Day surgery (SDC) | payer MEDICARE ==
[2018-07-21 14:08] VITALS: BMI 25.8
[~2018-07-22 09:47] MED LIST changes: +HYDROmorphone 0.5 MG/0.5 ML SYRINGE IVP PRN; -LACTATED RINGERS 1,000 ML IV SCH; +MIDAZOLAM 2 MG/2 ML VIAL IV PRN; -ONDANSETRON 4 MG/2 ML VIAL IVP ONE
[2018-07-22] MEDS: LACTATED RINGERS 1,000 ML IV SCH (11:38)
[2018-07-22] MEDS: ONDANSETRON 4 MG/2 ML VIAL IVP ONE ×2 (11:43→18:17)
[2018-07-22] MEDS ORDERED: fentaNYL (PF) 50 MCG/ML 2 ML AMP IVP ONE (12:02)
[2018-07-22 12:08] LABS: INR 1.8 (<1.2); Prothrombin Time 16.8 sec (9.0-12.0)
[2018-07-22] MEDS ORDERED: SUCCINYLCHOLINE CHLORIDE 100 MG/5 ML SYR IV ONE (13:11)
[2018-07-22] MEDS ORDERED: MIDAZOLAM 2 MG/2 ML VIAL ONE (13:11)
[2018-07-22] MEDS ORDERED: ePHEDrine SULFATE/0.9% NACL/PF 50 MG/5 ML SYRINGE IV ONE (13:11)
[2018-07-22] MEDS ORDERED: PROPOFOL 10 MG/ML 20 ML VIAL IV ONE (13:11)
[2018-07-22] MEDS ORDERED: fentaNYL (PF) 50 MCG/ML 2 ML AMP ONE (13:11)
[2018-07-22] MEDS ORDERED: LIDOCAINE 1% INJ 10MG/ML (20 ML MDV) ONE (13:11)
[2018-07-22] MEDS ORDERED: LIDOCAINE 0.5%-EPI 1:200,000 50 ML VIAL SQ ONE (13:40)
[2018-07-22] MEDS ORDERED: IOPAMIDOL M200 10 ML VIAL MISCELLANE ONE (13:40)
[2018-07-22] MEDS ORDERED: LACTATED RINGERS 1,000 ML IV ONE (13:55)
[2018-07-22] MEDS ORDERED: PANTOPRAZOLE 40 MG TABLET PO PRN (14:07)
[2018-07-22] MEDS ORDERED: HYDROcodone/APAP 5-325MG 1 EACH TAB PO PRN ×2 (14:07→14:09)
[2018-07-22] MEDS ORDERED: BENZOCAINE/MENTHOL LOZENG 1 EACH LOZENGE MUCOUS MEM PRN (14:09)
[2018-07-22] MEDS ORDERED: KETOROLAC 30 MG/ML 1 ML VIAL IVP PRN (14:09)
[2018-07-22] MEDS ORDERED: ONDANSETRON 4 MG/2 ML VIAL IVP PRN (14:09)
[2018-07-22] MEDS ORDERED: HYDROmorphone 1 MG/ML 1 ML SYRINGE IVP PRN (14:09)
--- NOTE | 2018-07-22 14:18 | P.OP ---
Date of Procedure: 07/22/18 Preoperative Diagnosis: Acute L3 vertebral compression fracture, traumatic with osteoporosis due to straining injury Postoperative Diagnosis: Same Anesthesia: GETA Pathology: other (L3 vertebral body to pathology) Condition: stable Disposition: PACU Description of Procedure: BRIEF OPERATIVE NOTE Preoperative Diagnosis: Vertebral compression fracture L3, acute traumatic due to straining injury with osteoporosis Postoperative Diagnosis: Same Procedure: Kyphoplasty of L3 Vertebral body biopsy of L3 Use of biplanar fluoroscopic guidance Surgeon: Dr. Boles Heat Regulator: Dickson Torres is present throughout the entire the case persistence during positioning, dissection, exposure, visualization, and all crucial elements of the case as well as closure. Anesthesia: General anesthesia Estimated blood loss: Less than 10 mL Specimen: Vertebral body biopsy sent to pathology in formalin Complications: None apparent Components implanted: Bone cement Disposition: To recovery room in good stable condition. OPERATIVE INDICATIONS The patient is well known to our service and underwent a L4 vertebral body kyphoplasty one week ago. She initially did very well with that after she had been treated conservative treatment she underwent her surgical procedure as per her operative note 1 week ago and she was able to go home and had excellent results over the next several days. However over the last week and she was lifting a basket and twisting and bending and felt a sudden sharp pain at her back. She had evaluation in our office and was found to have a new acute compression fracture at L3 above her prior L4 compression fracture. L4 compression treatment with kyphoplasty appear to be stable with stable bone cement but there appeared to be new endplate compression deformity at L3. Images were compared to her prior images and there was obvious change at L3 which correlated well with her new symptoms. The patient has been having issues in their back ever since sustaining an injury. They attempted conservative care with bracing over the past several days however they're not having any benefit despite brace use. They continue to have significant pain and debility due to their fracture. We discussed various treatment options including surgery, and the patient wishes to proceed with surgery with the improvement that she had her first kyphoplasty she is very eager to attempt kyphoplasty again at the new compression fracture We discussed the risk, patient 's alternatives and benefits of surgery including but not limited to, risk of bleeding risk of infection, risk of need for further surgery, risk of decreased , loss of motion, loss of function, cement extravasation, nerve damage, paralysis, heart attack, blindness and . OPERATIVE SUMMARY After discussing all the risks, patient alternatives and benefits at length, the patient elected to proceed with surgical intervention, signed informed consent, and presented for their procedure. The patient was seen and examined in the preoperative holding area and the surgical site was marked. The patient was given antibiotics and brought to the operating room. The patient was sedated and intubated by anesthesia in standard fashion. The patient was positioned on to the operating room table in a prone position on the appropriate well-padded and well molded bilateral chest rolls. We were careful to pad any bony prominences and pressure points. We were careful to maintain the patient's cervical spine and good neutral alignment and position throughout. We used 2 C-arm machines to establish biplanar fluoroscopic guidance in AP and lateral positions. We were able to localize the fractures appropriately. The patient was prepped and draped in a normal standard fashion. An appropriate timeout and keystone protocol performed. We were able to proceed with the surgery. The local wound area was infiltrated with local anesthetic. An incision was made over the lateral aspect of the pedicle over the appropriate levels with a small 2 mm stab incision on the right. Intraoperative fluoroscopy was taken which showed a marker at the appropriate level. With the appropriate level positively confirmed, I was able to position a sharp trocar over the lateral aspect of the pedicle. As able to advance the trocar into the pedicle and into the posterior aspect of vertebral body being careful to avoid penetration cephalad caudad or medially. The trocar was placed appropriately into the posterior aspect of vertebral body at the L3. This was confirmed with C-arm guidance. As able get good central placement from a unilateral pedicle position on the right of L3 With the trocar intact I was then able to take a bone biopsy with a biopsy punch. I was able get a very small bony specimen. The specimen was quite soft in the vertebral body itself The biopsy specimen was passed off to be sent to pathology in formalin. I was then able to place the kyphoplasty balloon within the vertebral body. The position was checked on C-arm. An excellent central position within the vertebral body. I was able to inflate the balloon under low pressure and visualization with C-arm. The balloon was well enclosed within the vertebral body. The cement was prepared. With the cement at appropriate working condition the balloons were deflated and removed. I was able to place bony cement with trocar with the cement delivery device under low pressure. It had good fill within the vertebral body. There is no evidence of any extravasation of the cement posteriorly toward the canal. I was able place approximately 4 to have cc of bone cement within the vertebral body The cement was well contained at the L3. The cement was allowed to cure appropriately. The trochars removed and final images were taken on C-arm. This showed the cement at the L3 vertebral body with the prior cement at the L4 vertebral body.. We were able to proceed with closure. Pressure was held over the incision site to allow appropriate hemostasis. The wound was cleaned and dried and dressed with the appropriate dressing. The drapes were broken down. The patient was gently rolled back onto their hospital bed being careful to maintain their cervical spine and good neutral alignment and position. They were woken up by anesthesia, extubated, and brought to the recovery room in good stable condition. The patient will be admitted to the hospital for observation and for appropriate postoperative care, medical management and monitoring. We will continue to follow them closely about the postoperative course.
--- NOTE | 2018-07-22 14:35 | XR ---
EXAMINATION TYPE: XR lumbar spine 2 or 3V DATE OF EXAM: 07/22/2018 COMPARISON: None HISTORY: Compression deformity TECHNIQUE: 2 views fluoroscopy FINDINGS: 54 seconds of fluoroscopy time was provided. 2 images are obtained. IMPRESSION: 1. Documentation of fluoroscopy.
--- NOTE | 2018-07-22 14:36 | FL ---
Fluoroscopy INDICATION: Pain FINDINGS: Fluoroscopy time: 54 seconds. Images obtained: 2. IMPRESSIONS: 1. Documentation of fluoroscopy.
[2018-07-22] MEDS ORDERED: WARFARIN 5 MG TAB PO SCH ×2 (18:00→21:00)
[2018-07-22] MEDS: SODIUM CHLORIDE 0.9% 1,000 ML IV SCH (18:17)
[2018-07-22] MEDS: FLECAINIDE 50 MG TAB PO SCH (20:35)
[2018-07-22] MEDS: HYDROcodone/APAP 5-325MG 1 EACH TAB PO PRN (20:36)
[2018-07-22] MEDS ORDERED: MONTELUKAST 10 MG TAB PO SCH (21:00)
[2018-07-22] MEDS: ceFAZolin IN SWFI 2 GM/20 ML SYRINGE IVP SCH (21:19)
[2018-07-23 00:45] VITALS: PULSE 80; RESP 18
[2018-07-23] MEDS: SODIUM CHLORIDE 0.9% 1,000 ML IV SCH (04:53)
[2018-07-23] MEDS: ceFAZolin IN SWFI 2 GM/20 ML SYRINGE IVP SCH (05:51)
[2018-07-23] MEDS: HYDROcodone/APAP 5-325MG 1 EACH TAB PO PRN (05:53)
[2018-07-23 06:57] VITALS: BP 117/74; TEMP 98.2
[2018-07-23] MEDS: LACTATED RINGERS 1,000 ML IV SCH (07:38)
[2018-07-23] MEDS ORDERED: METOPROLOL SUCCINATE (ER) 50 MG TAB.ER.24H PO SCH (09:00)
[2018-07-23] MEDS ORDERED: CHOLECALCIFEROL 1,000 UNIT TAB PO SCH (09:00)
[2018-07-23 09:08] LABS: INR 1.7 (<1.2); Prothrombin Time 15.7 sec (9.0-12.0)
--- NOTE | 2018-07-23 09:11 | P.DS ---
Providers Date of admission: 07/22/18 Attending physician: Jaqueline Boles Primary care physician: [facility] Course: The patient presented on the day of admission as per her operative note. She underwent a kyphoplasty of L3 her acute vertebral compression fracture which was traumatic with osteoporosis. Last week she had undergone a similar procedure was kyphoplasty at L4 for prior fracture and had done well for a few days until she had a new injury while bending over and lifting and sustained a new L3 fracture for which she underwent her procedure yesterday. She feels that her back has made improvement. She feels her pain is better today with her surgery. Physical Exam The incision site is clean dry and intact. There is no erythema no drainage. There is no purulence no evidence of infection. There is no active bleeding or drainage. Abdomen soft and nontender. Chest has good excursion with deep inspiration and expiration. The patient has active and passive range of motion intact at the upper and lower extremities. There is no acute change in neurologic status. She has good motion in her bilateral lower extremities Hospital Course Postoperative day #1 status post L3 vertebral biopsy with kyphoplasty for a acute traumatic compression fracture with osteoporosis. The patient feels that she has had improvement already with her surgery and that her back is more stable. The patient has been making good progress postoperatively. They have completed the prophylactic antibiotics without any signs or symptoms of infection. The patient has been able to advance their diet , and is tolerating diet adequately. The pain was initially controlled with IV medications and is now controlled appropriately with oral medications. The patient has been able to increase their mobilization. The patient has progressed appropriately. I think they are in good stable condition for discharge today. They will be sent home with appropriate prescriptions. I answered their questions to the best of my ability in a language that they can understand and they are agreeable with the plan. She has a couple of her pain medications left at home but we will give her a week's supply of [place]. They will follow up as directed next weeks or sooner if she is having any problems. Patient Condition at Discharge: Good Plan - Discharge Summary Discharge Rx Participant: Yes New Discharge Prescriptions: New HYDROcodone/APAP 5-325MG [[place] 5] 1 each PO Q4HR PRN #42 tab PRN Reason: Severe Pain No Action Cholecalciferol [Vitamin D3] 1,000 units PO DAILY Pantoprazole Sodium [Protonix] 40 mg PO DAILY PRN PRN Reason: Heartburn Warfarin [Coumadin] 5 mg PO SUMOWETHFR Flecainide [Tambocor] 50 mg PO BID Metoprolol Succinate (ER) [Toprol Xl] 50 mg PO DAILY Warfarin [Coumadin] 2.5 mg PO TUSA Montelukast [Singulair] 10 mg PO HS Infliximab-Dyyb [Inflectra] 300 mg IV Q42D HYDROcodone/APAP 5-325MG [[place] 5-325] 1 tab PO Q4HR PRN PRN Reason: Pain Discharge Medication List Cholecalciferol [Vitamin D3] 1,000 units PO DAILY 02/23/14 [History] Pantoprazole Sodium [Protonix] 40 mg PO DAILY PRN 06/29/14 [History] Warfarin [Coumadin] 5 mg PO SUMOWETHFR 03/14/17 [History] Flecainide [Tambocor] 50 mg PO BID 04/25/17 [History] Metoprolol Succinate (ER) [Toprol Xl] 50 mg PO DAILY 09/15/17 [History] Warfarin [Coumadin] 2.5 mg PO TUSA 09/15/17 [History] Infliximab-Dyyb [Inflectra] 300 mg IV Q42D 06/09/18 [History] Montelukast [Singulair] 10 mg PO HS 06/09/18 [History] HYDROcodone/APAP 5-325MG [[place] 5-325] 1 tab PO Q4HR PRN 07/15/18 [History] HYDROcodone/APAP 5-325MG [[place] 5] 1 each PO Q4HR PRN #42 tab 07/23/18 [Rx] Follow up Appointment(s)/Referral(s): Jaqueline Boles DO [Doctor of Osteopathic Medicine] - 1 Week (Follow-up as scheduled with Dickson Anderson at Dr. Boles's office) Activity/Diet/Wound Care/Special Instructions: Keep site clean. May shower with Tegaderm intact. On Friday the patient may shower with area uncovered bili Steri-Strips intact and allow them to fray off on their own. May ambulate to tolerance Avoid heavy or rigorous activity No bending stooping or twisting No lifting greater than 10 pounds Discharge Disposition: HOME SELF-CARE
[2018-07-23] MEDS: FLECAINIDE 50 MG TAB PO SCH (09:50)
[2018-07-24] MEDS ORDERED: INFLIXIMAB-DYYB 100 MG VIAL IV SCH (12:00)
[2018-07-25] MEDS ORDERED: WARFARIN 2.5 MG TAB PO SCH (18:00)
== END 2018-07-23 10:31 | disposition home or self-care (01) ==
LOC: OR 09:47 → 4SSUR 14:25 → OR 07-23 10:31
PROVIDERS: ATTEND Orthopaedic Surgery Orthopaedic Surgery of the Spine
DX: S32.030A Wedge compression fracture of third lumbar vertebra, initial encounter for closed fracture (principal); M81.0 Age-related osteoporosis without current pathological fracture; M43.16 Spondylolisthesis, lumbar region; M06.9 Rheumatoid arthritis, unspecified; I48.91 Unspecified atrial fibrillation; M47.26 Other spondylosis with radiculopathy, lumbar region; E78.5 Hyperlipidemia, unspecified; K21.9 Gastro-esophageal reflux disease without esophagitis; S32.040D Wedge compression fracture of fourth lumbar vertebra, subsequent encounter for fracture with routine healing; E66.3 Overweight; M48.061 Spinal stenosis, lumbar region without neurogenic claudication; M51.16 Intervertebral disc disorders with radiculopathy, lumbar region; J45.909 Unspecified asthma, uncomplicated; Z82.49 Family history of ischemic heart disease and other diseases of the circulatory system; Z79.01 Long term (current) use of anticoagulants; Z87.891 Personal history of nicotine dependence; Z79.891 Long term (current) use of opiate analgesic; Z79.899 Other long term (current) drug therapy; X50.9XXA Other and unspecified overexertion or strenuous movements or postures, initial encounter; Z68.25 Body mass index [BMI] 25.0-25.9, adult
CPT/HCPCS: 86900; 86901; 85610 ×2; 86850; 88307; 88311; 72100; 36415; 22514; J2250; J2405; J2001; J3010; J1170 ×2; J0330; J2704; J0690 ×2; Q9966

== ENCOUNTER 2018-08-26 13:01 | Observation (INO) | payer MEDICARE ==
--- NOTE | 2018-08-26 13:54 | ED ---
Back Pain HPI - General Chief Complaint: Back Pain/Injury Stated Complaint: post op back pain Time Seen by Provider: 08/26/18 13:37 Source: patient Limitations: no limitations - History of Present Illness Initial Comments: This is a 68-year-old female the ER for evaluation. States presenting for evaluation regards to back pain. This is acute on chronic back pain. No recent travel history no known sick contacts. Patient denies any recent injuries, no fevers. Patient has a significant recent history that includes multiple lumbar fractures with kyphoplasty which caused the patient to experience more lumbar fractures. Patient coming in is increasing severe pain today. Patient unable to tolerate the pain, severely miserable crying and emotional. No new neurological deficit no loss of bowel or bladder MD Complaint: back pain -: days(s) Similar Symptoms Previously: Yes Place: home Radiation: buttocks Severity: mild Severity scale (1-10): 3 Consistency: intermittent Improves With: immobilization Worsens With: movement Context: turning/twisting Associated Symptoms: denies other symptoms, difficulty walking Treatments Prior to Arrival: other - Related Data Home Medications Medication Instructions Recorded Confirmed Cholecalciferol [Vitamin D3] 1,000 units PO DAILY 02/23/14 08/26/18 Pantoprazole Sodium [Protonix] 40 mg PO DAILY PRN 06/29/14 08/26/18 Warfarin [Coumadin] 5 mg PO SUWETHFR 03/14/17 08/26/18 Flecainide [Tambocor] 50 mg PO BID 04/25/17 08/26/18 Metoprolol Succinate (ER) [Toprol 50 mg PO DAILY 09/15/17 08/26/18 Xl] Warfarin [Coumadin] 2.5 mg PO MOTUSA 09/15/17 08/26/18 Montelukast [Singulair] 10 mg PO HS 06/09/18 08/26/18 HYDROcodone/APAP 5-325MG [[place] 1 tab PO Q4HR PRN 07/15/18 08/26/18 5-325] Gabapentin [Neurontin] See Taper PO DIRECTED 08/26/18 08/26/18 inFLIXimab [Remicade] 300 mg IVPB Q42D 08/26/18 08/26/18 Allergies Allergy/AdvReac Type Severity Reaction Status Date / Time No Known Allergies Allergy Verified 08/26/18 13:51 Review of Systems ROS Statement: Those systems with pertinent positive or pertinent negative responses have been documented in the HPI. ROS Other: All systems not noted in ROS Statement are negative. Past Medical History Past Medical History: Atrial Fibrillation, GERD/Reflux, Hyperlipidemia, Rheumatoid Arthritis (RA) Additional Past Medical History / Comment(s): fx back History of Any Multi-Drug Resistant Organisms: None Reported Past Surgical History: Orthopedic Surgery, Tonsillectomy Additional Past Surgical History / Comment(s): CATARATS LENS IMPLANTS, RT FOOT REMOVED 3 NODULES, right foot bone removed 05/18/18. Colonoscopy 2016(2nd) to repeat in 5 years. Back surgery 07/15/2018 and 07/22/2018. Past Anesthesia/Blood Transfusion Reactions: No Reported Reaction Additional Past Anesthesia/Blood Transfusion Reaction / Comment(s): VERTIGO ON A CRUISE Past Psychological History: No Psychological Hx Reported Smoking Status: Former smoker Past Alcohol Use History: Occasional Past Drug Use History: None Reported - Past Family History Father Family Medical History: Cancer, Neurologic Disorder Additional Family Medical History / Comment(s): ARRYTHMIA, CORNEAL IMPLANTS, LT EYE BLIND , PARKINSONS, FATHER HAS Mother Family Medical History: Cancer, Coronary Artery Disease (CAD), Diabetes Mellitus , Myocardial Infarction (CA) Additional Family Medical History / Comment(s): CATARACTS, DETATCHED RETINA, GLAUCOMA, MACULAR DEGENERATION, STENTS, BOWEL RESECTION FOR DIVERTICULITIS, KATINA KNEE REPLACEMENT. Brother(s) Family Medical History: No Reported History Sister(s) Family Medical History: No Reported History General Exam Limitations: no limitations Course Vital Signs 08/26/18 13:13 Temperature 98.0 F Pulse Rate 74 Respiratory 18 Rate Blood Pressure 143/76 O2 Sat by Pulse 98 Oximetry - Reevaluation(s) Reevaluation #1: 08/26/18 14:30 Medical record is reviewed Reevaluation #2: 08/26/18 14:30 Patient has achieve improved pain control Reevaluation #3: 08/26/18 14:[address] Boles regarding admission, he is agreeable Medical Decision Making - Medical Decision Making 68 female the ER for evaluation, he presents today for evaluation regards to acute on chronic back pain. Patient be admitted for pain control - Radiology Data Radiology results: report reviewed (X-ray of thoracic and lumbar spine is pending), image reviewed Disposition Clinical Impression: Compression fracture of L4 lumbar vertebra, Mid back pain Disposition: ADMITTED IP TO THIS [facility] Condition: Good Instructions: Acute Low Back Pain (ED), Chronic Back Pain (ED) Is patient prescribed a controlled substance at d/c from ED?: No Referrals: Les Esteban MD [Primary Care Provider] - 1-2 days
[2018-08-26] MEDS ORDERED: HYDROmorphone 1 MG/ML 1 ML SYRINGE IM STA (14:15)
[2018-08-26] MEDS ORDERED: HYDROmorphone 1 MG/ML 1 ML SYRINGE IVP STA (14:33)
[2018-08-26] MEDS ORDERED: SODIUM CHLORIDE 0.9% 1,000 ML IV ONE (14:33)
[2018-08-26 15:37] LABS: Basophils % (A) 0 %; Eosinophils # (A) 0.4 k/uL (0-0.7); Eosinophils % (A) 4 %; HCT 43.5 % (34.0-46.0); HGB 14.3 gm/dL (11.4-16.0); Lymphocytes % (A) 22 %; MCHC 32.8 g/dL (31.0-37.0); MCV 91.6 fL (80.0-100.0); Monocytes # (A) 0.9 k/uL (0-1.0); Monocytes % (A) 10 %; Neutrophils # (A) 5.7 k/uL (1.3-7.7); Neutrophils % (A) 62 %; Platelet Count 275 k/uL (150-450); RBC 4.75 m/uL (3.80-5.40); RDW 13.8 % (11.5-15.5); WBC 9.2 k/uL (3.8-10.6)
[2018-08-26 15:43] LABS: Albumin 4.6 g/dL (3.5-5.0); Anion Gap 12 mmol/L; Blood Urea Nitrogen 9 mg/dL (7-17); Calcium 10.1 mg/dL (8.4-10.2); Carbon Dioxide 24 mmol/L (22-30); Chloride 105 mmol/L (98-107); Glucose 91 mg/dL (74-99); Magnesium 2.1 mg/dL (1.6-2.3); Phosphorus 5.2 mg/dL (2.5-4.5); Sodium 141 mmol/L (137-145); Total Protein 9.3 g/dL (6.3-8.2)
[2018-08-26 15:46] LABS: ALT 17 U/L (9-52); AST 50 U/L (14-36); Alkaline Phosphatase 131 U/L (38-126); Potassium 5.7 mmol/L (3.5-5.1); Total Bilirubin 0.9 mg/dL (0.2-1.3)
[2018-08-26 18:38] LABS: INR 1.3 (<1.2); Prothrombin Time 13.3 sec (9.0-12.0)
[2018-08-26] MEDS: HYDROmorphone 1 MG/ML 1 ML SYRINGE IVP PRN (19:45)
[2018-08-26] MEDS ORDERED: PANTOPRAZOLE 40 MG TABLET PO PRN (19:57)
[2018-08-26] MEDS ORDERED: WARFARIN 5 MG TAB PO SCH (20:15)
[2018-08-26] MEDS ORDERED: MONTELUKAST 10 MG TAB PO SCH (21:00)
[2018-08-26] MEDS: GABAPENTIN 300 MG CAP PO SCH (21:06)
[2018-08-26] MEDS: FLECAINIDE 50 MG TAB PO SCH (21:06)
[2018-08-26] MEDS: HYDROcodone/APAP 5-325MG 1 EACH TAB PO PRN (23:14)
[2018-08-26] MEDS: methylPREDNISolone SOD SUCCI 125 MG/2 ML VIAL IV SCH (23:17)
[2018-08-26 23:25] VITALS: RESP 16
[2018-08-27] MEDS: HYDROmorphone 1 MG/ML 1 ML SYRINGE IVP PRN ×3 (05:19→14:24)
[2018-08-27 05:29] LABS: Appearance,Urine Clear (Clear); Bilirubin,Urine Negative (Negative); Blood,Urine Negative (Negative); Color,Urine Light Yellow; Glucose,Urine (UA) Negative (Negative); Ketones,Urine Negative (Negative); Leukocyte Esterase,Urine Negative (Negative); Nitrite,Urine Negative (Negative); Protein,Urine Negative (Negative); Specific Gravity,Urine 1.004 (1.001-1.035); Urobilinogen,Urine <2.0 mg/dL (<2.0)
[2018-08-27 07:43] LABS: Anion Gap 8 mmol/L; Blood Urea Nitrogen 9 mg/dL (7-17); Calcium 9.4 mg/dL (8.4-10.2); Carbon Dioxide 24 mmol/L (22-30); Chloride 108 mmol/L (98-107); Glucose 157 mg/dL (74-99); Potassium 4.4 mmol/L (3.5-5.1); Sodium 140 mmol/L (137-145)
[2018-08-27] MEDS: methylPREDNISolone SOD SUCCI 125 MG/2 ML VIAL IV SCH (08:22)
[2018-08-27] MEDS: GABAPENTIN 300 MG CAP PO SCH (08:23)
[2018-08-27] MEDS: HYDROcodone/APAP 5-325MG 1 EACH TAB PO PRN (08:23)
[2018-08-27] MEDS: FLECAINIDE 50 MG TAB PO SCH (08:23)
[2018-08-27 08:27] VITALS: BP 94/57; PULSE 86; TEMP 97.7
[2018-08-27] MEDS ORDERED: METOPROLOL SUCCINATE (ER) 50 MG TAB.ER.24H PO SCH (09:00)
[2018-08-27] MEDS ORDERED: CHOLECALCIFEROL 1,000 UNIT TAB PO SCH (09:00)
--- NOTE | 2018-08-27 11:57 | P.HPOR ---
History of Present Illness H&P Date: 08/27/18 Chief Complaint: Severe low back pain with some right lower extremity Patient's a pleasant 68-year-old female who is well known to our service. She is currently being treated in regards to L2 compression fracture. For this fracture we've been trying to treat her conservatively with bracing and pain control. In the very recent past in June and July she was treated 4 L4 compression fracture and then L3 compression fracture for which was treated with kyphoplasty. After she was treated with a kyphoplasty at L4. Subsequently had a new fracture at L3 and was treated with another kyphoplasty. She felt she was making some improvement but then had another compression fracture at L2. With the sequence of events we felt that we should try to treat her conservatively. I had seen her in follow-up in the office and she was recently seen last week. She was having some pain in her lower back but was managing adequately at home. Apparently yesterday her pain became so severe she was not able to manage the pain at her back. The pain is primarily at her back though she does still have some pain at her right leg. She is not having any nausea or vomiting. She is not having change in bowel bladder function. She is not having any weakness in her lower extremities. She is not having a change in her neurologic status. Review of Systems She denies any fevers chills. She denies any changes in bowel or function. She denies any new low lower extremity changes. She's not having any new weakness in her lower extremity. Past Medical History Past Medical History: Atrial Fibrillation, GERD/Reflux, Hyperlipidemia, Rheumatoid Arthritis (RA) Additional Past Medical History / Comment(s): Compression fracture of L4 and L3 recently treated with kyphoplasty. Compression fracture L2 which is being treated conservatively compression fx L3-sx done History of Any Multi-Drug Resistant Organisms: None Reported Past Surgical History: Back Surgery, Orthopedic Surgery, Tonsillectomy Additional Past Surgical History / Comment(s): CATARATS LENS IMPLANTS, RT FOOT REMOVED 3 NODULES, right foot bone removed 05/18/18. Colonoscopy 2016(2nd) to repeat in 5 years. Back surgery 07/15/2018 and 07/22/2018. Past Anesthesia/Blood Transfusion Reactions: No Reported Reaction Additional Past Anesthesia/Blood Transfusion Reaction / Comment(s): VERTIGO ON A CRUISE Smoking Status: Former smoker - Past Family History Father Family Medical History: Cancer, Neurologic Disorder Additional Family Medical History / Comment(s): ARRYTHMIA, CORNEAL IMPLANTS, LT EYE BLIND , PARKINSONS, FATHER HAS Mother Family Medical History: Cancer, Coronary Artery Disease (CAD), Diabetes Mellitus , Myocardial Infarction ([place]) Additional Family Medical History / Comment(s): CATARACTS, DETATCHED RETINA, GLAUCOMA, MACULAR DEGENERATION, STENTS, BOWEL RESECTION FOR DIVERTICULITIS, KATINA KNEE REPLACEMENT. Brother(s) Family Medical History: No Reported History Sister(s) Family Medical History: No Reported History Medications and Allergies Home Medications Medication Instructions Recorded Confirmed Type Cholecalciferol [Vitamin D3] 1,000 units PO DAILY 02/23/14 08/26/18 History Pantoprazole Sodium [Protonix] 40 mg PO DAILY PRN 06/29/14 08/26/18 History Warfarin [Coumadin] 5 mg PO SUWETHFR 03/14/17 08/26/18 History Flecainide [Tambocor] 50 mg PO BID 04/25/17 08/26/18 History Metoprolol Succinate (ER) [Toprol 50 mg PO DAILY 09/15/17 08/26/18 History Xl] Warfarin [Coumadin] 2.5 mg PO MOTUSA 09/15/17 08/26/18 History Montelukast [Singulair] 10 mg PO HS 06/09/18 08/26/18 History HYDROcodone/APAP 5-325MG [Bertrand 1 tab PO Q4HR PRN 07/15/18 08/26/18 History 5-325] Gabapentin [Neurontin] See Taper PO DIRECTED 08/26/18 08/26/18 History inFLIXimab [Remicade] 300 mg IVPB Q42D 08/26/18 08/26/18 History HYDROcodone/APAP 10-325MG [Bertrand 1 tab PO Q4HR PRN 3 Days #18 tab 08/27/18 Rx 10-325] predniSONE 20 mg PO DIRECTED #24 tab 08/27/18 Rx Allergies Allergy/AdvReac Type Severity Reaction Status Date / Time No Known Allergies Allergy Verified 08/26/18 13:51 Physical Examination Osteopathic Statement: *. No significant issues noted on an osteopathic structural exam other than those noted in the History and Physical/Consult. - L Spine: dermatomal strength & reflexes bilateral Strength: hip flexion: 5/5 (At her low back she has some diffuse tenderness. Her incisions well healed there is no erythema. There is no crepitus. She has paravertebral spasm. Lower extremities have sustained dorsal flexion plantar flexion and EHL intact. She has 5 out of 5 strength but has some breakway strength due to pain. Her thighs and calves soft and nontender. Negative Kirk's. No hyperreflexia.) Results - Labs Labs: Abnormal Lab Results - Last 24 Hours (Table) 08/26/18 08/26/18 08/27/18 Range/Units 14:55 17:31 07:05 PT 13.3 H (9.0-12.0) sec INR 1.3 H (<1.2) Potassium 5.7 H (3.5-5.1) mmol/L Chloride 108 H (98-107) mmol/L Glucose 157 H (74-99) mg/dL Phosphorus 5.2 H (2.5-4.5) mg/dL AST 50 H (14-36) U/L Alkaline Phosphatase 131 H (38-126) U/L Total Protein 9.3 H (6.3-8.2) g/dL H & H 08/26/18 Range/Units 14:55 Hgb 14.3 (11.4-16.0) gm/dL Hct 43.5 (34.0-46.0) % Coagulation 08/26/18 Range/Units 17:31 INR 1.3 H (<1.2) Result Diagrams: 08/26/18 14:55 08/27/18 07:05 Assessment and Plan Assessment: Intractable low back pain with exacerbation of low back pain Acute on chronic low back pain Subacute L2 compression fracture being treated conservatively History of recent L3 and L4 compression fractures treated with kyphoplasty No neurologic deficit Plan: The patient had acute on chronic pain at her lower back and severe exacerbation of her symptoms of pain at her lower back. She was having some radicular symptoms over her right thigh but is not having weakness in her lower extremities and is not demonstrating any neurologic deficit. Yesterday she had acute flareup and was unable to manage at home and was admitted overnight for observation. She was treated with pain control as well as steroid medication and has settled down to a decent degree. I think that we can continue her steroid medication on a oral tapering basis and also convert her to a higher strength on oral pain medication. Hopefully this will allow her to manage and continue conservative treatment on her own at home for her L2 compression fracture. She is okay to take her Neurontin at home along with her pain medications. She is on warfarin and does take a medicine help protect her stomach with Prilosec which she should take daily while she is on the oral steroids. I like to see her back in our office in the next 1-2 weeks for recheck recheck evaluation or sooner if she is having any problems. I discussed this with her at length and she is agreeable. We will be able to send her home today with close follow-up.
[2018-08-28] MEDS ORDERED: GABAPENTIN 300 MG CAP PO SCH (08:00)
[2018-08-29] MEDS ORDERED: WARFARIN 2.5 MG TAB PO SCH (18:00)
== END 2018-08-27 14:45 | disposition home or self-care (01) ==
LOC: EC 13:01 → 1SOBS 14:34
PROVIDERS: ADMIT Orthopaedic Surgery Orthopaedic Surgery of the Spine; ATTEND Orthopaedic Surgery Orthopaedic Surgery of the Spine
DX: M48.56XA Collapsed vertebra, not elsewhere classified, lumbar region, initial encounter for fracture (principal); M79.604 Pain in right leg; M54.6 Pain in thoracic spine; G89.29 Other chronic pain; G89.18 Other acute postprocedural pain; I48.91 Unspecified atrial fibrillation; K21.9 Gastro-esophageal reflux disease without esophagitis; E78.5 Hyperlipidemia, unspecified; M06.9 Rheumatoid arthritis, unspecified; Z87.891 Personal history of nicotine dependence; Z80.9 Family history of malignant neoplasm, unspecified; Z82.49 Family history of ischemic heart disease and other diseases of the circulatory system; Z82.0 Family history of epilepsy and other diseases of the nervous system; Z83.3 Family history of diabetes mellitus; Z83.511 Family history of glaucoma; Z83.518 Family history of other specified eye disorder; Z83.79 Family history of other diseases of the digestive system; Z79.899 Other long term (current) drug therapy; Z79.01 Long term (current) use of anticoagulants
CPT/HCPCS: 96375; 96376 ×2; 96374; 99284; 80053; 80048; 83735; 84100; 85025; 85610; 81003; 87086; 87077; 87186; G0378 ×2; J2930 ×2; J1170 ×2

== ENCOUNTER → 2018-09-30 | Outpatient (CLI) | payer MEDICARE ==
--- NOTE | 2018-09-30 16:02 | BD ---
EXAMINATION TYPE: Axial Bone Density DATE OF EXAM: 09/30/2018 COMPARISON: 05/27/2017 CLINICAL HISTORY: Height: 60.5 IN Weight: 154 LBS FRAX RISK QUESTIONS: History of Fracture in Adulthood: L1 - L5 ARE ALL FRACTURED.; T11-12 FX SINCE JUN 2018 Secondary Osteoporosis: Rheumatoid Arthritis: YES RISK FACTORS HISTORY OF: Spine Fracture: L1-5 FRACTURE AND T11-12 FX SINCE JUN 2018 Surgery to Spine: KYPHOPLASTY JUL 2018 TO L3-L4 Active: LIMITED Postmenopausal woman: AGE 55 MEDICATIONS: Osteoporosis Medications: YES Which medication: TYMLOS INJECTION How Long: DAILY 80 MG INJECTION FOR 9 DAYS. PT HAS TO TAKE IT FOR 18 MONTHS. THIS INJECTION BUILDS BONE PER PT. Additional Medications: 5000 UNITS VIT D3, TYMLOS INJECTION, REMICADE INFUSIONS 300 MG EVERY 6 WEEKS, METOPROLOL, FLACANIDE, PROTONIX, COUMADIN, NORCO, NEUROTIN, 500 MG TYLENOL, EXAM MEASUREMENTS: Bone mineral densitometry was performed using the [employer] System. PT HAS L-SPINE FXS AND SURGERIES IN JUL 2018 Bone mineral density about the R hip (g/cm2): 0.908 Bone mineral density about the L hip (g/cm2): 0.762 T Score values are as follows: -----R Neck: -0.9 -----L Neck: -2.0 -----R Total: -1.6 -----L Total: -2.3 Bone mineral density has: Decreased -5.3% since study of: 05/27/2017 Bone mineral density about the L Wrist (g/cm2): 0.443 T Score values are as follows: -----Dist. R+U: -3.1 -----Prox. R+U: -3.0 -----Radius total: -3.8 Bone mineral density BASELINE IMPRESSION: Osteoporosis of the forearm. Osteopenia bilateral femora. NOTE: T-SCORE=SD OF THE YOUNG ADULT MEAN.
== END | disposition home or self-care (01) ==
LOC: RADBDWWP 10:26
PROVIDERS: ATTEND Internal Medicine Rheumatology
DX: M81.0 Age-related osteoporosis without current pathological fracture (principal)
CPT/HCPCS: 77080

== ENCOUNTER 2019-02-15 11:01 | Inpatient (IN) | payer MEDICARE ==
--- NOTE | 2019-02-15 12:40 | CONS ---
CONSULTATION Mrs. Ruano is a 69-year-old female who is admitted because of atrial fibrillation and rapid ventricular response. This patient has been followed in the office. She has a history of paroxysmal atrial fibrillation and history of mitral valve prolapse with moderate to severe degree of mitral regurgitation. Patient had been usually well controlled as far as atrial fibrillation with flecainide 50 mg b.i.d. and she will have occasional episodes of short lasting atrial fibrillation. The patient has been started on timolol since October for severe osteoporosis and since that dose she has been having more frequent episodes of atrial fibrillation. She felt her heart fluttering fast and the heart beats since last and it persisted. She was seen in the office and subsequently is admitted. The patient does have a mild exertional shortness of breath. Denies any chest pain. Denies any orthopnea or PND. This patient does have a history of mitral valve prolapse and moderate to severe mitral regurgitation. Patient has been having regular echo done. Her last echocardiogram showed ejection fraction of 60%. The patient had a previous JOSE L done about 3 or 4 years ago. Patient had also had a cardiac MRI done about a year ago which showed ejection fraction of 60% and mitral regurgitation fraction was 30%. In view of that, the patient has been continued on medical treatment with the recommendation that if there is any further enlargement of the left ventricular end-diastolic diameter or symptoms of shortness of breath, she may need mitral valve repair. Her left ventricular end systolic diameter was normal in October. Patient has a history of rheumatoid arthritis. There is no prior history of myocardial infarction. PAST MEDICAL HISTORY: Includes a history of rheumatoid arthritis, history of dyslipidemia, history of tobacco use. Patient's home medications include Coumadin 5 mg daily, flecainide 50 mg b.i.d., metoprolol succinate 50 mg daily, prednisone 10 mg daily, Protonix. Patient is also on Remicade and timolol. PHYSICAL EXAMINATION: At present, he does not appear to be in distress. The patient's heart rate is 140-150 per minute, blood pressure is 100/70 mmHg. HEENT examination is negative. Neck is supple. There is no increase in jugular venous pressure. Both the carotid pulses are felt. There is no bruit. Chest is symmetrical. Heart, the PMI is not felt. First and second heart sounds are heard. There is a systolic murmur heard at the apex. Lungs are clinically clear to auscultation and percussion. Abdomen is soft. Liver and spleen are not enlarged. Extremities, peripheral pulsations are 2+. EKG shows evidence of possible atrial flutter with 2-1 conduction. FINAL IMPRESSION: 1. This patient is admitted with atrial flutter with rapid rate, which is a persistent for last 4 days. There is no evidence of any overt congestive cardiac failure. 2. Patient has a history of mitral valve prolapse and moderate to severe mitral regurgitation. Her left ventricular end systolic diameter has remained normal and previous MRI about a year ago so is a regurgitant fraction of 30%. In view of that, the patient has been treated medically. 3. History of rheumatoid arthritis. 4. Patient's recurrent atrial fibrillation and flutter is increasing in frequency, he has been taking medications for osteoporosis. RECOMMENDATIONS: Patient is admitted to the hospital. We will try her on flecainide 100 mg b.i.d. and if that does not work, we will try her IV amiodarone consultation is obtained with Dr. mayen regarding possible ablation, possible ablation for recurrent episodes of atrial fibrillation. In view of the recurrent atrial fibrillation, patient may need further evaluation for a mitral valve repair after she is stabilized. MMODL / IJN: [id number] /
[2019-02-15] MEDS: METOPROLOL SUCCINATE (ER) 50 MG TAB.ER.24H PO SCH (14:04)
[2019-02-15] MEDS: FLECAINIDE 50 MG TAB PO SCH ×2 (14:43→22:46)
[2019-02-15 14:54] LABS: Anisocytosis Slight; HCT 40.1 % (34.0-46.0); Hypochromasia Slight; MCH 30.5 pg (25.0-35.0); MCHC 32.4 g/dL (31.0-37.0); MCV 94.1 fL (80.0-100.0); Mean Platelet Volume 8.3; Platelet Count 254 k/uL (150-450); RBC 4.26 m/uL (3.80-5.40); RDW 16.5 % (11.5-15.5); WBC 14.5 k/uL (3.8-10.6)
[2019-02-15 15:04] LABS: Calcium 9.5 mg/dL (8.4-10.2); Total Bilirubin 0.8 mg/dL (0.2-1.3)
[2019-02-15 15:07] LABS: INR 4.3 (<1.2); Prothrombin Time 40.9 sec (9.0-12.0)
[2019-02-15 15:09] LABS: Albumin 4.1 g/dL (3.5-5.0); Potassium 5.2 mmol/L (3.5-5.1); Total Protein 7.6 g/dL (6.3-8.2)
[2019-02-15] MEDS: DILTIAZEM 125 MG in SODIUM CHLORIDE 0.9% 100 ML IV SCH (20:18)
--- NOTE | 2019-02-15 21:23 | P.HPIM ---
History of Present Illness H&P Date: 02/15/19 Chief Complaint: Persistent atrial fibrillation with tachycardia This is a 69-year-old female with history of rheumatoid arthritis, hyperlipidemia, paroxysmal atrial fibrillation, mitral regurgitation. She presents to the hospital with symptoms of feeling her heart racing fast which is persistent from 4 days ago, comes in from the cardiology office. Dr. Loya she has noticed increasing frequency off her out the patient's she used to be paroxysmal atrial fibrillation now her symptoms are more on the persistent side patient was subsequently admitted from cardiology secondary to uncontrolled A. fib with RVR. Patient denies any chest pain, she does have shortness of breath on exertion, she has chronic atrial fibrillation for the past 4 years, denies an y history off CHF diabetes mellitus obstructive sleep apnea COPD, no recent caffeine intake no recent alcohol intake. Patient denies any hemoptysis no edema melena hematochezia, patient has shortness of breath exertion, and palpitations. Lightheadedness, without any syncope. Patient denies any focal neurologic deficit to include TIAs. Patient to be seen consultation by Dr. rodriguez Review of Systems Constitutional: Reports as per HPI, Denies anorexia, Denies chills, Denies chronic headaches, Denies chronic pain, Denies daytime sleepiness, Denies fat igue, Denies fever, Denies lethargy, Denies malaise, Denies night sweats, Denies poor appetite, Denies sweats, Denies weakness, Denies weight gain, Denies weight loss Ears, nose, mouth and throat: Reports as per HPI, Denies ant. neck pain, Denies bleeding gums, Denies dental pain, Denies dysphagia, Denies epistaxis, Denies headache, Denies hoarseness, Denies mouth pain, Denies nasal congestion, Denies nasal discharge, Denies neck fullness/pressure, Denies neck lump, Denies nose pain, Denies odynophagia, Denies post-nasal drip, Denies sinus pain, Denies sinus pressure, Denies swelling in mouth, Denies swelling in throat, Denies sore throat, Denies vertigo, Denies voice changes Cardiovascular: Reports as per HPI, Reports dyspnea on exertion, Reports lightheadedness, Reports palpitations, Denies chest pain, Denies claudication, Denies decreased exercise tolerance, Denies edema, Denies high blood pressure, Denies irregular heart beat, Denies leg edema, Denies orthopnea, Denies paroxysmal nocturnal dyspnea, Denies phlebitis, Denies rapid heart beat, Denies shortness of breath, Denies syncope Respiratory: Reports as per HPI, Denies congestion, Denies cough, Denies cough with sputum, Denies dyspnea, Denies excessive sputum, Denies hemoptysis, Denies home oxygen, Denies pain, Denies pain on inspiration, Denies pleurisy, Denies respiratory infections, Denies sleep apnea, Denies snoring, Denies wheezing Gastrointestinal: Reports as per HPI, Denies abdominal pain, Denies belching, Denies bloating, Denies BRBPR, Denies change in bowel habits, Denies coffee ground emesis, Denies constipation, Denies diarrhea, Denies dyspepsia, Denies early satiety, Denies excessive gas, Denies heartburn, Denies hematemesis, Denies hematochezia, Denies indigestion, Denies jaundice, Denies lactose int olerance, Denies loss of appetite, Denies melena, Denies nausea, Denies vomiting Genitourinary: Reports as per HPI, Denies abnormal vaginal bleeding, Denies decreased libido, Denies difficulty conceiving, Denies difficulty voiding, Denies dysmenorrhea, Denies dyspareunia, Denies dysuria, Denies flank pain, Denies genital sores, Denies hematuria, Denies hot flashes, Denies incomplete emptying, Denies kidney stones, Denies menorrhagia, Denies mixed incontinence, Denies nocturia, Denies pelvic pain, Denies post void dribbling, Denies , Denies prolapse symptoms, Denies stress incontinence, Denies urge incontinence, Denies urgency, Denies urinary frequency, Denies vaginal discharge, Denies vaginal dryness, Denies vaginal itching, Denies vaginal odor Menstruation: Reports as per HPI Musculoskeletal: Reports as per HPI, Denies arm numbness/tingling, Denies atrophy, Denies fractures, Denies frequent falls, Denies gait dysfunction, Denies hot joints, Denies leg numbness/tingling, Denies limitation of motion, De nies loss of height, Denies low back pain, Denies morning stiffness, Denies muscle cramps, Denies muscle weakness, Denies myalgias, Denies neck pain, Denies neck stiffness, Denies prior amputations, Denies redness of joints, Denies shooting arm pain, Denies shooting leg pain Integumentary: Reports as per HPI Neurological: Reports as per HPI, Denies aphasia, Denies ataxia, Denies balance difficulties, Denies burning pain, Denies change in mentation, Denies change in smell/taste, Denies change in speech, Denies confusion, Denies convulsions, Rob es double vision, Denies gait dysfunction, Denies head injury, Denies headaches, Denies hearing difficulties, Denies lack of coordination, Denies loss of vision, Denies memory loss, Denies migraines, Denies motor disturbance, Denies numbness, Denies paralysis, Denies paresthesias, Denies seizures, Denies sensory deficit, Denies spasticity, Denies syncope, Denies tic, Denies tingling, Denies transient paralysis, Denies tremors, Denies vertigo, Denies weakness, Denies visual changes Psychiatric: Reports as per HPI, Reports change in sleep habits, Denies anhedonia, Denies anxiety, Denies anxiety attacks, Denies change in appetite, Denies change in libido, Denies confusion, Denies depression, Denies difficulty concentrating, Denies disorientation, Denies hallucinations, Denies hopelessness, Denies hypersomnia, Denies insomnia, Denies irritability, Denies memory loss, Denies mood swings, Denies paranoia, Denies sadness/tearfulness, Denies sleep disturbances, Denies suicidal ideation Endocrine: Reports as per HPI, Denies cold intolerance, Denies deepening of the voice, Denies excessive sweating, Denies excessive thirst, Denies fatigue, De nies flushing, Denies heat intolerance, Denies high blood sugars, Denies increase in ring/shoe/hat size, Denies low blood sugars, Denies nocturia, Denies palpitations, Denies polydipsia, Denies polyphagia, Denies polyuria, Denies proptosis, Denies recent glucocorticoid use, Denies thyroid mass, Denies weight change Hematologic/Lymphatic: Reports as per HPI, Reports easy bleeding, Denies easy bruising, Denies lymphadenopathy, Denies lymphedema, Denies thrombophilia Past Medical History Past Medical History: Atrial Fibrillation, GERD/Reflux, Hyperlipidemia, Rheumatoid Arthritis (RA) Additional Past Medical History / Comment(s): Compression fracture of L4 and L3 recently treated with kyphoplasty. Compression fracture L2 which is being treated conservatively compression fx L3-sx done History of Any Multi-Drug Resistant Organisms: None Reported Past Surgical History: Back Surgery, Orthopedic Surgery, Tonsillectomy Additional Past Surgical History / Comment(s): CATARATS LENS IMPLANTS, RT FOOT REMOVED 3 NODULES, right foot bone removed 05/18/18. Colonoscopy 2016(2nd) to repeat in 5 years. Back surgery 07/15/2018 and 07/22/2018. Past Anesthesia/Blood Transfusion Reactions: No Reported Reaction Additional Past Anesthesia/Blood Transfusion Reaction / Comment(s): VERTIGO ON A CRUISE Smoking Status: Former smoker - Past Family History Father Family Medical History: Cancer, Neurologic Disorder Additional Family Medical History / Comment(s): ARRYTHMIA, CORNEAL IMPLANTS, LT EYE BLIND , PARKINSONS, FATHER HAS Mother Family Medical History: Cancer, Coronary Artery Disease (CAD), Diabetes Mellitus, Myocardial Infarction (DC) Additional Family Medical History / Comment(s): CATARACTS, DETATCHED RETINA, GLAUCOMA, MACULAR DEGENERATION, STENTS, BOWEL RESECTION FOR DIVERTICULITIS, KATINA KNEE REPLACEMENT. recently Brother(s) Family Medical History: CVA/TIA Additional Family Medical History / Comment(s): stroke at 65 Sister(s) Family Medical History: No Reported History Medications and Allergies Home Medications Medication Instructions Recorded Confirmed Type Cholecalciferol [Vitamin D3 (25 1,000 units PO DAILY 02/23/14 02/15/19 History Mcg = 1000 Iu)] Pantoprazole Sodium [Protonix] 40 mg PO DAILY PRN 06/29/14 02/15/19 History Warfarin [Coumadin] 5 mg PO MOWESA 03/14/17 02/15/19 History Flecainide [Tambocor] 50 mg PO BID 04/25/17 02/15/19 History Metoprolol Succinate (ER) [Toprol 50 mg PO DAILY 09/15/17 02/15/19 History Xl] Warfarin [Coumadin] 2.5 mg PO SUTUTHFR 09/15/17 02/15/19 History inFLIXimab [Remicade] 300 mg IVPB Q42D 08/26/18 02/15/19 History Abaloparatide [Tymlos] 1.56 ml INJ DAILY 02/15/19 02/15/19 History Calcium Carbonate [Calcium] 600 mg PO DAILY 02/15/19 02/15/19 History Cider Vinegar [Apple Cider Vinegar] 300 mg PO DAILY 02/15/19 02/15/19 History Propafenone [Rythmol] 225 mg PO BID 02/15/19 02/15/19 History predniSONE See Taper PO DIRECTED 02/15/19 02/15/19 History Allergies Allergy/AdvReac Type Severity Reaction Status Date / Time No Known Allergies Allergy Verified 02/15/19 15:29 Physical Exam Vitals: Vital Signs Temp Pulse Resp BP Pulse Ox 02/15/19 20:27 115 H 102/68 02/15/19 20:00 98 F 124 H 18 94/64 97 02/15/19 17:03 98.9 F 136 H 16 97/68 02/15/19 14:11 97.8 F 136 H 16 111/70 Intake and Output 02/15/19 02/15/19 02/15/19 06:59 14:59 22:59 Intake Total 240 Balance 240 Intake: Oral 240 Other: Voiding Method Toilet # Voids 1 Weight 73.457 kg - Constitutional General appearance: average body habitus, cooperative, no acute distress - EENT Eyes: anicteric sclerae, EOMI, PERRLA, dentition normal, normal appearance ENT: hard of hearing, NA/AT, normal oropharynx - Neck Neck: normal ROM Carotids: bilateral: upstroke normal Thyroid: bilateral: normal size - Respiratory Respiratory: bilateral: CTA, negative: diminished, dullness - Cardiovascular Rhythm: irregularly irregular Heart sounds: normal: S2, abnormal: S1 Abnormal Heart Sounds: no systolic murmur, no diastolic murmur, no rub, no S3 Gallop, no S4 Gallop, no click, no other - Gastrointestinal General gastrointestinal: normal bowel sounds, soft - Integumentary Integumentary: decreased turgor, normal - Neurologic Neurologic: CNII-XII intact - Musculoskeletal Musculoskeletal: gait normal, strength equal bilaterally - Psychiatric Psychiatric: A&O x's 3, appropriate affect, intact judgment & insight Results CBC & Chem 7: 02/15/19 14:21 02/15/19 14:21 Labs: Abnormal Lab Results - Last 24 Hours (Table) 02/15/19 02/15/19 02/15/19 Range/Units 14:21 14:21 14:21 WBC 14.5 H (3.8-10.6) k/uL RDW 16.5 H (11.5-15.5) % PT 40.9 H (9.0-12.0) sec INR 4.3 H (<1.2) Potassium 5.2 H (3.5-5.1) mmol/L Carbon Dioxide 20 L (22-30) mmol/L Glucose 129 H (74-99) mg/dL AST 41 H (14-36) U/L Laboratory Results WBC 14.5 k/uL (3.8-10.6) H 02/15/19 14:21 RBC 4.26 m/uL (3.80-5.40) 02/15/19 14:21 Hgb 13.0 gm/dL (11.4-16.0) 02/15/19 14:21 Hct 40.1 % (34.0-46.0) 02/15/19 14:21 MCV 94.1 fL (80.0-100.0) 02/15/19 14:21 MCH 30.5 pg (25.0-35.0) 02/15/19 14:21 MCHC 32.4 g/dL (31.0-37.0) 02/15/19 14:21 RDW 16.5 % (11.5-15.5) H 02/15/19 14:21 Plt Count 254 k/uL (150-450) 02/15/19 14:21 Hypochromasia Slight 02/15/19 14:21 Anisocytosis Slight 02/15/19 14:21 PT 40.9 sec (9.0-12.0) H 02/15/19 14:21 INR 4.3 (<1.2) H 02/15/19 14:21 Sodium 139 mmol/L (137-145) 02/15/19 14:21 Potassium 5.2 mmol/L (3.5-5.1) H 02/15/19 14:21 Chloride 106 mmol/L (98-107) 02/15/19 14:21 Carbon Dioxide 20 mmol/L (22-30) L 02/15/19 14:21 Anion Gap 13 mmol/L 02/15/19 14:21 BUN 17 mg/dL (7-17) 02/15/19 14:21 Creatinine 0.87 mg/dL (0.52-1.04) 02/15/19 14:21 Est GFR (CKD-EPI)AfAm 78 (>60 ml/min/1.73 sqM) 02/15/19 14:21 Est GFR (CKD-EPI)NonAf 68 (>60 ml/min/1.73 sqM) 02/15/19 14:21 Glucose 129 mg/dL (74-99) H 02/15/19 14:21 Calcium 9.5 mg/dL (8.4-10.2) 02/15/19 14:21 Total Bilirubin 0.8 mg/dL (0.2-1.3) 02/15/19 14:21 AST 41 U/L (14-36) H 02/15/19 14:21 ALT 13 U/L (9-52) 02/15/19 14:21 Alkaline Phosphatase 68 U/L (38-126) 02/15/19 14:21 Total Protein 7.6 g/dL (6.3-8.2) 02/15/19 14:21 Albumin 4.1 g/dL (3.5-5.0) 02/15/19 14:21 TSH 1.090 mIU/L (0.465-4.680) 02/15/19 14:21 Thrombosis Risk Factor Assmnt - DVT/VTE Prophylaxis DVT/VTE Prophylaxis: Pharmacologic Prophylaxis ordered - Choose All That Apply Any of the Below Risk Factors Present?: Yes Each Factor Represents 1 point: Obesity (BMI >25) Other Risk Factors: Yes Each Risk Factor Represents 2 Points: Age 61-74 years Thrombosis Risk Factor Assessment Total Risk Factor Score: 3 Thrombosis Risk Factor Assessment Level: Moderate Risk Assessment and Plan Plan: Plan: 1. Atrial fibrillation with rapid ventricular response in a patient with paroxysmal atrial fibrillation now with persistence of rhytm abnormalities. Patient has known history of prior atrial fibrillation, increasing in frequency related possibly tymlos , this side effect profile of tymlos noted to have palpitations and arrhythmias , thyroid function test to be obtained, suggest other options for osteoporosis treatment besides tymlos cyst Dr. benjamin from endocrine 2 moderate to severe mitral regurgitation. Moderate to severe degree of mitral valve prolapse with normal systolic function. Patient does take Coumadin for anticoagulation, Cardiology consultation appreciated. 3. Coagulopathy with an elevated INR of 4, Coumadin will be held today and tomorrow, INR to be checked patient was on Coumadin 2.5 mg daily except 5 mg Friday and Friday 2. History of rheumatoid arthritis. Continue the patient on methotrexate 12.5 mg orally once every week 3. History of GERD. Continue Protonix 40 mg orally once every day. 4. Vitamin D deficiency. Video vitamin D supplement 5000 international units once every day. 5. DVT prophylaxis. Continue Coumadin keep her INR between 2-3. 6. GI prophylaxis. Continue Protonix 40 mg orally once every day. 7. Estimated length of stay 2 days.
--- NOTE | 2019-02-15 23:22 | XR ---
EXAMINATION: XR chest 2V DATE AND TIME: 02/15/2019 6:41 PM CLINICAL INDICATION: PHH; afib TECHNIQUE: Departmental protocol COMPARISON: 01/19/2016 FINDINGS: The chronic interstitial lung coarse reticular pattern is redemonstrated. There is a 2 cm opacity projecting in the right suprahilar position, just caudal to the clavicle. Wou ld suggest six-week follow-up PA and lateral chest radiographs to prove resolution of this finding. Otherwise, the lungs are clear as seen. The pleural spaces are negative. The cardiac silhouette is not enlarged. The skeletal structures and soft tissues are negative for acu te findings. IMPRESSION: 1. No definite acute process. 2. 2 cm right suprahilar opacity for which follow-up radiographs recommended to prove resolution.
[2019-02-16] MEDS: PANTOPRAZOLE 40 MG TABLET PO SCH (06:28)
[2019-02-16 08:10] LABS: HCT 38.5 % (34.0-46.0); MCH 28.8 pg (25.0-35.0); MCHC 31.1 g/dL (31.0-37.0); MCV 92.7 fL (80.0-100.0); Mean Platelet Volume 7.4; Platelet Count 252 k/uL (150-450); RBC 4.15 m/uL (3.80-5.40); RDW 15.9 % (11.5-15.5); WBC 10.2 k/uL (3.8-10.6)
[2019-02-16 08:13] LABS: INR 3.4 (<1.2); Prothrombin Time 32.5 sec (9.0-12.0)
[2019-02-16 08:36] LABS: Albumin 3.7 g/dL (3.5-5.0); Calcium 8.9 mg/dL (8.4-10.2); Potassium 4.2 mmol/L (3.5-5.1); Total Bilirubin 0.5 mg/dL (0.2-1.3); Total Protein 6.9 g/dL (6.3-8.2)
[2019-02-16] MEDS: predniSONE 10 MG TAB PO SCH (08:42)
[2019-02-16] MEDS: FLECAINIDE 50 MG TAB PO SCH ×2 (08:42→21:22)
[2019-02-16] MEDS: CHOLECALCIFEROL 1,000 UNIT TAB PO SCH (08:42)
[2019-02-16] MEDS: METOPROLOL SUCCINATE (ER) 50 MG TAB.ER.24H PO SCH (08:42)
[2019-02-16] MEDS: CALCIUM CARBONATE 500 MG CHEWABLE PO SCH (08:42)
--- NOTE | 2019-02-16 14:57 | P.PN ---
Subjective Progress Note Date: 02/16/19 This is a 69-year-old female [facility] with Garth kasper with RVR. Patient also has a moderate to severe degree of mitral regurgitation, because of mitral valve prolapse. History of hyperlipidemia, rheumatoid arthritis, nicotine dependence. Patient was seen and examined this morning, she continues to be in atrial fibrillation, rate is under better control with IV Cardizem. Consultation has been requested for Dr. Longoria to come and evaluate the patient. Blood pressure 90/50 with a heart rate in the 80s, 100% on room air. White blood cell count 10.2, hemoglobin 12.0, platelet count 252. INR 3.4. Sodium 140, potassium 4.2, BUN 16 and creatinine 0.9. Objective - Vital Signs Vital signs: Vital Signs Temp 98.2 F 02/16/19 11:34 Pulse 89 02/16/19 11:34 Resp 18 02/16/19 11:34 BP 94/59 02/16/19 11:34 Pulse Ox 100 02/16/19 11:34 Intake & Output 02/15/19 02/16/19 02/16/19 18:59 06:59 18:59 Intake Total 240 480 Balance 240 480 Weight 73.457 kg 72.4 kg Intake: Oral 240 480 Other: Voiding Method Toilet Toilet Toilet # Voids 1 1 - Exam PHYSICAL EXAMINATION: GENERAL: 69-year-old female in no acute distress at the time of my examination HEENT: Head is atraumatic, normocephalic. Pupils equal, round. Sclera anicteric. Conjunctiva are clear. Mucous membranes of the mouth are moist. Neck is supple. There is no elevated jugular venous pressure.] bruit is heard. HEART EXAMINATION: Her S1 and S2 irregularly irregular a systolic murmur is heard at the apex. CHEST EXAMINATION: Lungs are clear to auscultation and precussion. No chest wall tenderness is noted on palpation or with deep breathing. ABDOMEN: Soft, nontender. Bowel sounds are heard. No organomegaly noted. EXTREMITIES: 2+ peripheral pulses with no evidence of peripheral edema and no calf tenderness noted. NEUROLOGIC patient is awake, alert and oriented 3 . . - Labs CBC & Chem 7: 02/16/19 07:27 02/16/19 07:27 Labs: Abnormal Lab Results - Last 24 Hours (Table) 02/15/19 02/15/19 02/15/19 Range/Units 14:21 14:21 14:21 WBC 14.5 H (3.8-10.6) k/uL RDW 16.5 H (11.5-15.5) % PT 40.9 H (9.0-12.0) sec INR 4.3 H (<1.2) Potassium 5.2 H (3.5-5.1) mmol/L Carbon Dioxide 20 L (22-30) mmol/L Glucose 129 H (74-99) mg/dL AST 41 H (14-36) U/L 02/16/19 02/16/19 02/16/19 Range/Units 07:27 07:27 07:27 WBC (3.8-10.6) k/uL RDW 15.9 H (11.5-15.5) % PT 32.5 H (9.0-12.0) sec INR 3.4 H (<1.2) Potassium (3.5-5.1) mmol/L Carbon Dioxide (22-30) mmol/L Glucose 103 H (74-99) mg/dL AST (14-36) U/L Assessment and Plan Plan: Assessment and plan #1 coarse atrial fibrillation versus atrial flutter with rapid ventricular response, typical #2 history of mitral valve prolapse with moderate to severe mitral regurgitation #3 rheumatoid arthritis Plan At this point in time we will continue flecainide along with IV Cardizem. Consultation requested with Dr. Helm who will come and evaluate the patient today. DNP note has been reviewed, I agree with a documented findings and plan of care. Patient was seen and examined.
--- NOTE | 2019-02-16 15:58 | P.CRDCN ---
History of Present Illness History of present illness: This is Dr. Longoria dictating a consult on this patient The patient was interviewed and examined by me IMPRESSION / ASSESSMENT: Recurrent paroxysmal atrial fibrillation now becoming drug refractory to class on antiarrhythmic drugs Symptomatic 3+ mitral regurgitation moderate to severe with preserved LV systolic function last year by cardiac MRI and recently by echo in October Mitral valve prolapse Intermittent episodes of atrial flutter on telemetry but the 12-lead ECG shows a different rhythm, atrial tachycardia with variable block Rheumatoid arthritis Increased interstitial lung markings and mild bronchiectasis in the lungs Severe osteoporosis PLAN: In view of symptomatic atrial fibrillation which is not drug refractory I would recommend an A. fib ablation as well as atrial flutter ablation I had a very detailed discussion with her regarding the success rates as a complication rates The, getting factors include prednisone, rheumatoid arthritis, need for general anesthesia for PVI and atrial tachycardia and atrial flutter ablation Risks of cardiac puncture pulmonary vein damage, damage to the conduction system, phenytoin injury and esophageal injury as well as stroke discussed She understands that her I would like her INR between 2.5-3.2 Last month her INR was 1.8. The dose of Coumadin was increased. At this time it is a bit above for and is being held At this time since she has asymptomatic atrial fibrillation despite being on 100 mg twice daily flecainide I would recommend a JOSE L and electrical cardioversion and continuation of flecainide Reassessment of her mitral valve regurgitation while in sinus rhythm/JOSE L HPI Patient has had atrial fibrillation since last year but since October her A. fib episodes become much more frequent She was recently started on medication for osteoporosis called Abaloparatide Since then she's had more frequent episodes of atrial fibrillation almost a weekly basis She feels the palpitations and the irregularity She also feels very tired and fatigued and listless Labor shortness of breath and dizziness No chest discomfort She is quite symptomatic from this and she has failed propafenone 225 mg 3 times a day. Incidentally she's been taking propafenone and flecainide at home and still continues to have atrial fibrillation ROS: No fever chills or rigors, no cough, phlegm or expectoration, no nausea, vomiting or diarrhea, no hematuria, dysuria, no musculoskeletal complaints, no strokes or seizures, no skin lesions. EXAMINATION: Sitting comfortably in bed no respiratory distress But pressure 94/59 mmHg an IV Cardizem nonlabored breathing pulse rate tachycardic afebrile 98.2F Breath sounds are mildly reduced bilaterally but I don't hear any rhonchi no crackles no fine crackles Heart sounds are tachycardic there is a pansystolic murmur at the apex Abdomen soft extremities are warm I don't appreciate a JVD No obvious thyromegaly REVIEW OF LABS, ECG & MEDICAL DATA Chest CT from 2018 was reviewed. There is osteoporosis in managing of the thoracic vertebrae. She has severe osteoporosis Coronary calcification noted Extensive interstitial thickening in the lower lung and lingula with groundglass opacity and mild bronchiectasis She has rheumatoid arthritis and osteoporosis Hemoglobin 12.0, platelet count 252,000, yesterday potassium was high by today's 4.2, normal renal function Normal liver function TSH 1.09 Twelve-lead ECG shows an atrial tachycardia with variable AV block Telemetry shows intermittent episodes of rhythm that is suggestive of atrial flutter, possibly typical Past Medical History Past Medical History: Atrial Fibrillation, GERD/Reflux, Hyperlipidemia, Rheumatoid Arthritis (RA) Additional Past Medical History / Comment(s): Compression fracture of L4 and L3 recently treated with kyphoplasty. Compression fracture L2 which is being treated conservatively compression fx L3-sx done History of Any Multi-Drug Resistant Organisms: None Reported Past Surgical History: Back Surgery, Orthopedic Surgery, Tonsillectomy Additional Past Surgical History / Comment(s): CATARATS LENS IMPLANTS, RT FOOT REMOVED 3 NODULES, right foot bone removed 05/18/18. Colonoscopy 2016(2nd) to repeat in 5 years. Back surgery 07/15/2018 and 07/22/2018. Past Anesthesia/Blood Transfusion Reactions: No Reported Reaction Additional Past Anesthesia/Blood Transfusion Reaction / Comment(s): VERTIGO ON A CRUISE Smoking Status: Former smoker - Past Family History Father Family Medical History: Cancer, Neurologic Disorder Additional Family Medical History / Comment(s): ARRYTHMIA, CORNEAL IMPLANTS, LT EYE BLIND , PARKINSONS, FATHER HAS Mother Family Medical History: Cancer, Coronary Artery Disease (CAD), Diabetes Mellitus, Myocardial Infarction ([place]) Additional Family Medical History / Comment(s): CATARACTS, DETATCHED RETINA, GLAUCOMA, MACULAR DEGENERATION, STENTS, BOWEL RESECTION FOR DIVERTICULITIS, KATINA KNEE REPLACEMENT. recently Brother(s) Family Medical History: CVA/TIA Additional Family Medical History / Comment(s): stroke at 65 Sister(s) Family Medical History: No Reported History Medications and Allergies Home Medications Medication Instructions Recorded Confirmed Type Cholecalciferol [Vitamin D3 (25 1,000 units PO DAILY 02/23/14 02/15/19 History Mcg = 1000 Iu)] Pantoprazole Sodium [Protonix] 40 mg PO DAILY PRN 06/29/14 02/15/19 History Warfarin [Coumadin] 5 mg PO MOWESA 03/14/17 02/15/19 History Flecainide [Tambocor] 50 mg PO BID 04/25/17 02/15/19 History Metoprolol Succinate (ER) [Toprol 50 mg PO DAILY 09/15/17 02/15/19 History Xl] Warfarin [Coumadin] 2.5 mg PO SUTUTHFR 09/15/17 02/15/19 History inFLIXimab [Remicade] 300 mg IVPB Q42D 08/26/18 02/15/19 History Abaloparatide [Tymlos] 1.56 ml INJ DAILY 02/15/19 02/15/19 History Calcium Carbonate [Calcium] 600 mg PO DAILY 02/15/19 02/15/19 History Cider Vinegar [Apple Cider Vinegar] 300 mg PO DAILY 02/15/19 02/15/19 History Propafenone [Rythmol] 225 mg PO BID 02/15/19 02/15/19 History predniSONE See Taper PO DIRECTED 02/15/19 02/15/19 History Allergies Allergy/AdvReac Type Severity Reaction Status Date / Time No Known Allergies Allergy Verified 02/15/19 15:29 Physical Exam Vitals: Vital Signs Temp Pulse Pulse Resp BP BP Pulse Ox 02/16/19 11:34 98.2 F 89 16 94/59 100 02/16/19 08:48 97.8 F 68 16 94/58 96 02/16/19 04:00 98.1 F 107 H 18 97/66 96 02/16/19 00:00 127 H 18 99/67 94 L 02/15/19 20:37 124 H 105/68 02/15/19 20:27 115 H 102/68 02/15/19 20:00 98 F 124 H 124 H 18 94/64 97 02/15/19 17:03 98.9 F 136 H 16 97/68 Intake and Output 02/16/19 02/16/19 02/16/19 06:59 14:59 22:59 Intake Total 480 Balance 480 Intake: Oral 480 Other: Voiding Method Toilet Toilet # Voids 1 Weight 72.4 kg Results 02/16/19 07:27 02/16/19 07:27 Cardiac Enzymes 02/16/19 Range/Units 07:27 AST 25 (14-36) U/L Coagulation 02/16/19 Range/Units 07:27 PT 32.5 H (9.0-12.0) sec CBC 02/16/19 Range/Units 07:27 WBC 10.2 (3.8-10.6) k/uL RBC 4.15 (3.80-5.40) m/uL Hgb 12.0 (11.4-16.0) gm/dL Hct 38.5 (34.0-46.0) % Plt Count 252 (150-450) k/uL Comprehensive Metabolic Panel 02/16/19 Range/Units 07:27 Sodium 140 (137-145) mmol/L Potassium 4.2 (3.5-5.1) mmol/L Chloride 106 (98-107) mmol/L Carbon Dioxide 27 (22-30) mmol/L BUN 16 (7-17) mg/dL Creatinine 0.91 (0.52-1.04) mg/dL Glucose 103 H (74-99) mg/dL Calcium 8.9 (8.4-10.2) mg/dL AST 25 (14-36) U/L ALT 22 (9-52) U/L Alkaline Phosphatase 66 (38-126) U/L Total Protein 6.9 (6.3-8.2) g/dL Albumin 3.7 (3.5-5.0) g/dL Current Medications Generic Name Dose Route Start Last Admin Trade Name Freq PRN Reason Stop Dose Admin Calcium Carbonate/Glycine 500 mg 02/16/19 09:00 02/16/19 08:42 Tums PO 500 mg DAILY INES Administration Cholecalciferol 1,000 unit 02/16/19 09:00 02/16/19 08:42 Vitamin D3 (25 Mcg = 1000 Iu) PO 1,000 unit DAILY INES Administration Flecainide Acetate 100 mg 02/15/19 14:00 02/16/19 08:42 Tambocor PO 100 mg Q12HR INES Administration Diltiazem HCl 125 mg/ Sodium 125 mls @ 5 mls/hr 02/15/19 19:00 02/15/19 20:18 Chloride IV 5 mg/hr .Q24H INES 5 mls/hr Administration 5 MG/HR Metoprolol Succinate 50 mg 02/15/19 14:00 02/16/19 08:42 Toprol Xl PO 50 mg DAILY INES Administration Pantoprazole Sodium 40 mg 02/16/19 07:30 02/16/19 06:28 Protonix PO 40 mg AC-[id number] INES Administration Prednisone 10 mg 02/16/19 09:00 02/16/19 08:42 PO 10 mg DAILY INES Administration Intake and Output 02/16/19 02/16/19 02/16/19 06:59 14:59 22:59 Intake Total 480 Balance 480 Intake: Oral 480 Other: Voiding Method Toilet Toilet # Voids 1 Weight 72.4 kg 02/16/19 07:27 02/16/19 07:27
[2019-02-16] MEDS ORDERED: WARFARIN 2.5 MG TAB PO ONE (19:45)
[2019-02-16] MEDS ORDERED: WARFARIN 2 MG TAB PO ONE (20:00)
[2019-02-16] MEDS: DILTIAZEM 125 MG in SODIUM CHLORIDE 0.9% 100 ML IV SCH (21:22)
[2019-02-16] MEDS: SODIUM CHLORIDE 0.9% 1,000 ML IV SCH (21:23)
[2019-02-17] MEDS: PANTOPRAZOLE 40 MG TABLET PO SCH (06:23)
[2019-02-17 06:27] LABS: HCT 35.5 % (34.0-46.0); HGB 11.4 gm/dL (11.4-16.0); MCHC 32.1 g/dL (31.0-37.0); MCV 93.4 fL (80.0-100.0); Mean Platelet Volume 7.4; Platelet Count 216 k/uL (150-450); RDW 15.9 % (11.5-15.5); WBC 10.5 k/uL (3.8-10.6)
[2019-02-17 06:36] LABS: Albumin 3.5 g/dL (3.5-5.0); Calcium 8.9 mg/dL (8.4-10.2); Potassium 4.1 mmol/L (3.5-5.1); Total Bilirubin 0.3 mg/dL (0.2-1.3); Total Protein 6.5 g/dL (6.3-8.2)
[2019-02-17 06:44] LABS: INR 2.4 (<1.2); Prothrombin Time 23.3 sec (9.0-12.0)
--- NOTE | 2019-02-17 08:19 | P.PN ---
Subjective Progress Note Date: 02/16/19 This is a 69-year-old female with history of rheumatoid arthritis, hyperlipidemia, paroxysmal atrial fibrillation, mitral regurgitation. She presents to the hospital with symptoms of feeling her heart racing fast which is persistent from 4 days ago, comes in from the cardiology office. Dr. Loya she has noticed increasing frequency off her out the patient's she used to be paroxysmal atrial fibrillation now her symptoms are more on the persistent side patient was subsequently admitted from cardiology secondary to uncontrolled A. fib with RVR. Patient denies any chest pain, she does have shortness of breath on exertion, she has chronic atrial fibrillation for the past 4 years, denies any history off CHF diabetes mellitus obstructive sleep apnea COPD, no recent caffeine intake no recent alcohol intake. Patient denies any hemoptysis no edema melena hematochezia, patient has shortness of breath exertion, and palpitations. Lightheadedness, without any syncope. Patient denies any focal neurologic deficit to include TIAs. Patient to be seen consultation by Dr. rodriguez 02/16: Heart rate is running between 89 and 107. She denies having any palpitations or shortness of breath but feels like she takes more depressed when she is in atrial fibrillation. She periodically checks her heart rate on her phone chet. She is waiting for evaluation by Dr. Rodriguez. INR today at 3.4. Pharmacy is dosing Coumadin. TSH was 1.090. Objective - Vital Signs Vital signs: Vital Signs Temp 98.2 F 02/16/19 11:34 Pulse 89 02/16/19 11:34 Resp 18 02/16/19 11:34 BP 94/59 02/16/19 11:34 Pulse Ox 100 02/16/19 11:34 Intake & Output 02/15/19 02/16/19 02/16/19 18:59 06:59 18:59 Intake Total 240 240 Balance 240 240 Weight 73.457 kg 72.4 kg Intake: Oral 240 240 Other: Voiding Method Toilet Toilet Toilet # Voids 1 1 - Exam Review Of Systems: Constitutional: No fever, no chills, no night sweats. No weight change. No weakness, fatigue or lethargy. EENT: No headache. No blurred vision or double vision, no loss of vision. No loss of Hearing, no ringing in the ears, no dizziness. No nasal drainage or congestion. No epistaxis. No sore throat. Lungs: No shortness of breath, cough, no sputum production. No wheezing. Cardiovascular: No chest pain, no lower extremity edema. No palpitations. No paroxysmal nocturnal dyspnea. No orthopnea. No lightheadedness or dizziness. No syncopal episodes. Abdominal: No abdominal pain. No nausea, vomiting. No diarrhea. No constipation. No bloody or tarry stools.. No loss of appetite. Genitourinary: No dysuria, increased frequency, urgency. No urinary retention. Musculoskeletal: No myalgias. No muscle weakness, no gait dysfunction, no frequent falls. No back pain. No neck pain. Integumentary: No wounds, no lesions. No rash or pruritus. No unusual bruising. No change in hair or nails. Neurologic: No aphasia. No facial droop. No change in mentation. No head injury. No headache. No paralysis. No paresthesia. Endocrine: No abnormal blood sugars. No weight change. No excessive sweating or thirst. No cold intolerance. Physical exam: - Constitutional General appearance: average body habitus, cooperative, no acute distress noted. Patient is resting comfortably in a recliner. - EENT Eyes: anicteric sclerae, EOMI, PERRLA, dentition normal, normal appearance ENT: hard of hearing, NA/AT, normal oropharynx - Neck Neck: normal ROM Carotids: bilateral: upstroke normal Thyroid: bilateral: normal size - Respiratory Respiratory: bilateral: CTA, negative: diminished, dullness - Cardiovascular Rhythm: irregularly irregular Heart sounds: normal: S2, abnormal: S1 Abnormal Heart Sounds: no systolic murmur, no diastolic murmur, no rub, no S3 Gallop, no S4 Gallop, no click, no other - Gastrointestinal General gastrointestinal: normal bowel sounds, soft - Integumentary Integumentary: decreased turgor, normal - Neurologic Neurologic: CNII-XII intact - Musculoskeletal Musculoskeletal: gait normal, strength equal bilaterally - Psychiatric Psychiatric: A&O x's 3, appropriate affect, intact judgment & insight - Labs CBC & Chem 7: 02/17/19 06:06 02/17/19 06:06 Labs: Abnormal Lab Results - Last 24 Hours (Table) 02/15/19 02/15/19 02/15/19 Range/Units 14:21 14:21 14:21 WBC 14.5 H (3.8-10.6) k/uL RDW 16.5 H (11.5-15.5) % PT 40.9 H (9.0-12.0) sec INR 4.3 H (<1.2) Potassium 5.2 H (3.5-5.1) mmol/L Carbon Dioxide 20 L (22-30) mmol/L Glucose 129 H (74-99) mg/dL AST 41 H (14-36) U/L 02/16/19 02/16/19 02/16/19 Range/Units 07:27 07:27 07:27 WBC (3.8-10.6) k/uL RDW 15.9 H (11.5-15.5) % PT 32.5 H (9.0-12.0) sec INR 3.4 H (<1.2) Potassium (3.5-5.1) mmol/L Carbon Dioxide (22-30) mmol/L Glucose 103 H (74-99) mg/dL AST (14-36) U/L Assessment and Plan Plan: 1. Atrial fibrillation with rapid ventricular response in a patient with paroxysmal atrial fibrillation now with persistence of rhytm abnormalities. Patient has known history of prior atrial fibrillation, increasing in frequency related possibly tymlos , this side effect profile of tymlos noted to have palpitations and arrhythmias , thyroid function test to be obtained, suggest other options for osteoporosis treatment besides tymlos cyst Dr. benjamin from endocrine. Consult with Dr. Wilson in 2 moderate to severe mitral regurgitation. Moderate to severe degree of mitral valve prolapse with normal systolic function. Patient does take Coumadin for anticoagulation, Cardiology consultation appreciated. 3. Coagulopathy with an elevated INR of 4, Coumadin will be held today and tomorrow, INR to be checked patient was on Coumadin 2.5 mg daily except 5 mg Friday and Friday 2. History of rheumatoid arthritis. Continue the patient on methotrexate 12.5 mg orally once every week 3. History of GERD. Continue Protonix 40 mg orally once every day. 4. Vitamin D deficiency. Video vitamin D supplement 5000 international units once every day. 5. DVT prophylaxis. Continue Coumadin keep her INR between 2-3. 6. GI prophylaxis. Continue Protonix 40 mg orally once every day. 7. Estimated length of stay 2 days. Discharge plan: Return home Impression and plan of care have been directed as dictated by the signing physician. Juliette Terrazas nurse practitioner acting as scribe for signing physician.
[2019-02-17] MEDS: CHOLECALCIFEROL 1,000 UNIT TAB PO SCH (08:20)
[2019-02-17] MEDS: CALCIUM CARBONATE 500 MG CHEWABLE PO SCH (08:20)
[2019-02-17] MEDS: FLECAINIDE 50 MG TAB PO SCH ×2 (08:20→22:20)
[2019-02-17] MEDS: predniSONE 10 MG TAB PO SCH (08:20)
[2019-02-17] MEDS: METOPROLOL SUCCINATE (ER) 50 MG TAB.ER.24H PO SCH (08:20)
--- NOTE | 2019-02-17 12:05 | P.PN ---
Subjective Progress Note Date: 02/17/19 This is a 69-year-old female [facility] with Garth kasper with RVR. Patient also has a moderate to severe degree of mitral regurgitation, because of mitral valve prolapse. History of hyperlipidemia, rheumatoid arthritis, nicotine dependence. Patient was seen and examined this morning, she continues to be in atrial fibrillation, rate is under better control with IV Cardizem. Consultation has been requested for Dr. Longoria to come and evaluate the patient. Blood pressure 90/50 with a heart rate in the 80s, 100% on room air. White blood cell count 10.2, hemoglobin 12.0, platelet count 252. INR 3.4. Sodium 140, potassium 4.2, BUN 16 and creatinine 0.9. 02/17/2019 Patient was seen in consultation by Dr. Longoria, scheduled for ablation procedure on Friday.continues to be in atrial flutter with a controlled ventricular response. INR today is 2.4. Sodium 138, potassium 4.1, BUN to 20 and creatinine 0.9.we will give the patient 3 mg of Coumadin today, keep the INR in the range of 2.5-3. Objective - Vital Signs Vital signs: Vital Signs Temp 98.1 F 02/17/19 08:22 Pulse 82 02/17/19 08:22 Resp 18 02/17/19 08:22 BP 101/58 02/17/19 08:22 Pulse Ox 98 02/17/19 08:22 Intake & Output 02/16/19 02/17/19 02/17/19 18:59 06:59 18:59 Intake Total 720 125 Balance 720 125 Weight 73.5 kg Intake: Intake, IV Titration 125 Amount Diltiazem 125 mg In 125 Sodium Chloride 0.9% 100 ml @ 5 MG/HR 5 mls/hr IV .Q24H [facility] Rx#:[id number] Oral 720 Other: Voiding Method Toilet Toilet Toilet # Voids 1 - Exam PHYSICAL EXAMINATION: GENERAL: 69-year-old female in no acute distress at the time of my examination HEENT: Head is atraumatic, normocephalic. Pupils equal, round. Sclera anicteric. Conjunctiva are clear. Mucous membranes of the mouth are moist. Neck is supple. There is no elevated jugular venous pressure.] bruit is heard. HEART EXAMINATION: Her S1 and S2 irregularly irregular a systolic murmur is heard at the apex. CHEST EXAMINATION: Lungs are clear to auscultation and precussion. No chest wall tenderness is noted on palpation or with deep breathing. ABDOMEN: Soft, nontender. Bowel sounds are heard. No organomegaly noted. EXTREMITIES: 2+ peripheral pulses with no evidence of peripheral edema and no calf tenderness noted. NEUROLOGIC patient is awake, alert and oriented 3 . . - Labs CBC & Chem 7: 02/17/19 06:06 02/17/19 06:06 Labs: Abnormal Lab Results - Last 24 Hours (Table) 02/17/19 02/17/19 02/17/19 Range/Units 06:06 06:06 06:06 RDW 15.9 H (11.5-15.5) % PT 23.3 H (9.0-12.0) sec INR 2.4 H (<1.2) BUN 20 H (7-17) mg/dL AST 45 H (14-36) U/L Assessment and Plan Plan: Assessment and plan #1 coarse atrial fibrillation versus atrial flutter with rapid ventricular response, typical #2 history of mitral valve prolapse with moderate to severe mitral regurgitation #3 rheumatoid arthritis Plan Patient is scheduled for an ablation procedure on Friday, we will give her 3 mg of Coumadin today to keep the INR in the range of 2.5-3. She will undergo ab lation procedure on Friday. DNP note has been reviewed, I agree with a documented findings and plan of care. Patient was seen and examined.
[2019-02-17] MEDS: TYMLOS SQ SCH (12:23)
[2019-02-17] MEDS ORDERED: WARFARIN 3 MG TAB PO ONE (18:00)
[2019-02-17] MEDS: SODIUM CHLORIDE 0.9% 1,000 ML IV SCH (18:01)
[2019-02-18] MEDS: PANTOPRAZOLE 40 MG TABLET PO SCH (06:49)
[2019-02-18] MEDS: DILTIAZEM 125 MG in SODIUM CHLORIDE 0.9% 100 ML IV SCH (06:52)
[2019-02-18 07:33] LABS: Prothrombin Time 19.7 sec (9.0-12.0)
[2019-02-18 07:42] LABS: Albumin 3.7 g/dL (3.5-5.0); Calcium 8.8 mg/dL (8.4-10.2); Potassium 4.4 mmol/L (3.5-5.1); Total Bilirubin 0.5 mg/dL (0.2-1.3); Total Protein 6.9 g/dL (6.3-8.2)
[2019-02-18 07:47] LABS: HCT 35.8 % (34.0-46.0); HGB 11.2 gm/dL (11.4-16.0); MCH 29.6 pg (25.0-35.0); MCHC 31.3 g/dL (31.0-37.0); MCV 94.8 fL (80.0-100.0); Mean Platelet Volume 7.5; Platelet Count 227 k/uL (150-450); RBC 3.78 m/uL (3.80-5.40); WBC 10.7 k/uL (3.8-10.6)
--- NOTE | 2019-02-18 07:51 | P.PN ---
Subjective Progress Note Date: 02/17/19 This is a 69-year-old female with history of rheumatoid arthritis, hyperlipidemia, paroxysmal atrial fibrillation, mitral regurgitation. She presents to the hospital with symptoms of feeling her heart racing fast which is persistent from 4 days ago, comes in from the cardiology office. Dr. Loya she has noticed increasing frequency off her out the patient's she used to be paroxysmal atrial fibrillation now her symptoms are more on the persistent side patient was subsequently admitted from cardiology secondary to uncontrolled A. fib with RVR. Patient denies any chest pain, she does have shortness of breath on exertion, she has chronic atrial fibrillation for the past 4 years, denies any history off CHF diabetes mellitus obstructive sleep apnea COPD, no recent caffeine intake no recent alcohol intake. Patient denies any hemoptysis no edema melena hematochezia, patient has shortness of breath exertion, and palpitations. Lightheadedness, without any syncope. Patient denies any focal neurologic deficit to include TIAs. Patient to be seen consultation by Dr. rodriguez 02/16: Heart rate is running between 89 and 107. She denies having any palpitations or shortness of breath but feels like she takes more depressed when she is in atrial fibrillation. She periodically checks her heart rate on her phone chet. She is waiting for evaluation by Dr. Rodriguez. INR today at 3.4. Pharmacy is dosing Coumadin. TSH was 1.090. 02/17: Patient has been seen by Dr. Rodriguez with plan for JOSE L and electrical cardioversion and continuation of flecainide. Reassessment of her mitral valve regurgitation well in a sinus rhythm/JOSE L. He would like INR between 2.5 and 3.2. This morning, INR is 2.4. Plan for cardioversion on Friday, February 22. Patient denies any new complaints. No chest pain or shortness of breath. She has had no nausea or vomiting. No lightheadedness or dizziness. Note that Dr. Rodriguez has instructed the patient to continue taking Tymlos which will be continued here. Patient does admit that she took her own medication the last 2 days. Objective - Vital Signs Vital signs: Vital Signs Temp 98.1 F 02/17/19 08:22 Pulse 82 02/17/19 08:22 Resp 18 02/17/19 08:22 BP 101/58 02/17/19 08:22 Pulse Ox 98 02/17/19 08:22 Intake & Output 02/16/19 02/17/19 02/17/19 18:59 06:59 18:59 Intake Total 720 125 Balance 720 125 Weight 73.5 kg Intake: Intake, IV Titration 125 Amount Diltiazem 125 mg In 125 Sodium Chloride 0.9% 100 ml @ 5 MG/HR 5 mls/hr IV .Q24H [facility] Rx#:[id number] Oral 720 Other: Voiding Method Toilet Toilet Toilet # Voids 1 - Exam Review Of Systems: Constitutional: No fever, no chills, no night sweats. No weight change. No weakness, fatigue or lethargy. EENT: No headache. No blurred vision or double vision, no loss of vision. No loss of Hearing, no ringing in the ears, no dizziness. No nasal drainage or congestion. No epistaxis. No sore throat. Lungs: No shortness of breath, cough, no sputum production. No wheezing. Cardiovascular: No chest pain, no lower extremity edema. No palpitations. No paroxysmal nocturnal dyspnea. No orthopnea. No lightheadedness or dizziness. No syncopal episodes. Abdominal: No abdominal pain. No nausea, vomiting. No diarrhea. No constipation. No bloody or tarry stools.. No loss of appetite. Genitourinary: No dysuria, increased frequency, urgency. No urinary retention. Musculoskeletal: No myalgias. No muscle weakness, no gait dysfunction, no frequent falls. No back pain. No neck pain. Integumentary: No wounds, no lesions. No rash or pruritus. No unusual bruising. No change in hair or nails. Neurologic: No aphasia. No facial droop. No change in mentation. No head injury. No headache. No paralysis. No paresthesia. Endocrine: No abnormal blood sugars. No weight change. No excessive sweating or thirst. Physical exam: - Constitutional General appearance: average body habitus, cooperative, no acute distress noted. Patient is resting comfortably in a recliner. - EENT Eyes: anicteric sclerae, EOMI, PERRLA, dentition normal, normal appearance ENT: hard of hearing, NA/AT, normal oropharynx - Neck Neck: normal ROM Carotids: bilateral: upstroke normal Thyroid: bilateral: normal size - Respiratory Respiratory: bilateral: CTA, negative: diminished, dullness - Cardiovascular Rhythm: irregularly irregular Heart sounds: normal: S2, abnormal: S1 Abnormal Heart Sounds: no systolic murmur, no diastolic murmur, no rub, no S3 Gallop, no S4 Gallop, no click, no other - Gastrointestinal General gastrointestinal: normal bowel sounds, soft - Integumentary Integumentary: decreased turgor, normal - Neurologic Neurologic: CNII-XII intact - Musculoskeletal Musculoskeletal: gait normal, strength equal bilaterally - Psychiatric Psychiatric: A&O x's 3, appropriate affect, intact judgment & insight - Labs CBC & Chem 7: 02/18/19 06:33 02/18/19 06:33 Labs: Abnormal Lab Results - Last 24 Hours (Table) 02/17/19 02/17/19 02/17/19 Range/Units 06:06 06:06 06:06 RDW 15.9 H (11.5-15.5) % PT 23.3 H (9.0-12.0) sec INR 2.4 H (<1.2) BUN 20 H (7-17) mg/dL AST 45 H (14-36) U/L Assessment and Plan Plan: 1. Atrial fibrillation with rapid ventricular response in a patient with paroxysmal atrial fibrillation now with persistence of rhytm abnormalities. Patient has known history of prior atrial fibrillation, increasing in frequency related possibly tymlos, this side effect profile of tymlos noted to have palpitations and arrhythmias , thyroid function test to be obtained, suggest other options for osteoporosis treatment besides tymlos cyst Dr. benjamin from endocrine. Consult with Dr. Rodriguez appreciated. Patient is planned for cardioversion. Goals to keep INR between 2.5 and 3.2. 2. Moderate to severe mitral regurgitation. Moderate to severe degree of mitral valve prolapse with normal systolic function. Patient does take Coumadin for anticoagulation, Cardiology consultation appreciated. 3. Coagulopathy with an elevated INR of 4, Coumadin will be held today and tomorrow, INR to be checked patient was on Coumadin 2.5 mg daily except 5 mg Friday and Friday 4. History of rheumatoid arthritis. Continue the patient on methotrexate 12.5 mg orally once every week 5. History of GERD. Continue Protonix 40 mg orally once every day. 6. Vitamin D deficiency. Video vitamin D supplement 5000 international units once every day. 7. DVT prophylaxis. Continue Coumadin keep her INR between 2-3. 8. GI prophylaxis. Continue Protonix 40 mg orally once every day. Discharge plan: Return home Impression and plan of care have been directed as dictated by the signing physician. Juliette Terrazas nurse practitioner acting as scribe for signing physician.
[2019-02-18] MEDS: predniSONE 10 MG TAB PO SCH (08:15)
[2019-02-18] MEDS: METOPROLOL SUCCINATE (ER) 50 MG TAB.ER.24H PO SCH (08:15)
[2019-02-18] MEDS: CALCIUM CARBONATE 500 MG CHEWABLE PO SCH (08:15)
[2019-02-18] MEDS: CHOLECALCIFEROL 1,000 UNIT TAB PO SCH (08:15)
[2019-02-18] MEDS: FLECAINIDE 50 MG TAB PO SCH ×2 (08:15→21:53)
[2019-02-18] MEDS: TYMLOS SQ SCH (08:16)
--- NOTE | 2019-02-18 13:51 | P.PN ---
Subjective Progress Note Date: 02/18/19 This is a 69-year-old female [facility] with Garth kasper with RVR. Patient also has a moderate to severe degree of mitral regurgitation, because of mitral valve prolapse. History of hyperlipidemia, rheumatoid arthritis, nicotine dependence. Patient was seen and examined this morning, she continues to be in atrial fibrillation, rate is under better control with IV Cardizem. Consultation has been requested for Dr. Longoria to come and evaluate the patient. Blood pressure 90/50 with a heart rate in the 80s, 100% on room air. White blood cell count 10.2, hemoglobin 12.0, platelet count 252. INR 3.4. Sodium 140, potassium 4.2, BUN 16 and creatinine 0.9. 02/17/2019 Patient was seen in consultation by Dr. Longoria, scheduled for ablation procedure on Friday.continues to be in atrial flutter with a controlled ventricular response. INR today is 2.4. Sodium 138, potassium 4.1, BUN to 20 and creatinine 0.9.we will give the patient 3 mg of Coumadin today, keep the INR in the range of 2.5-3.0 02/18/2019 She converted over to normal sinus rhythm last evening and remains in a sinus rhythm this morning. We will discontinue the IV Cardizem today. Her INR today is 2.0 so we will give her 5 mg within instead of the 2-09/09. Objective - Vital Signs Vital signs: Vital Signs Temp 98.1 F 02/18/19 12:06 Pulse 83 02/18/19 12:06 Resp 18 02/18/19 12:06 BP 133/84 02/18/19 12:06 Pulse Ox 100 02/18/19 12:06 Intake & Output 02/17/19 02/18/19 02/18/19 18:59 06:59 18:59 Intake Total 720 240 240 Balance 720 240 240 Weight 74.1 kg Intake: Oral 720 240 240 Other: Voiding Method Toilet Toilet Toilet # Voids 1 - Exam PHYSICAL EXAMINATION: GENERAL: 69-year-old female in no acute distress at the time of my examination HEENT: Head is atraumatic, normocephalic. Pupils equal, round. Sclera anicteric. Conjunctiva are clear. Mucous membranes of the mouth are moist. Neck is supple. There is no elevated jugular venous pressure.] bruit is heard. HEART EXAMINATION: Heart S1 and S2 systolic murmur is heard at the apex. CHEST EXAMINATION: Lungs are clear to auscultation and precussion. No chest wall tenderness is noted on palpation or with deep breathing. ABDOMEN: Soft, nontender. Bowel sounds are heard. No organomegaly noted. EXTREMITIES: 2+ peripheral pulses with no evidence of peripheral edema and no calf tenderness noted. NEUROLOGIC patient is awake, alert and oriented 3 . . - Labs CBC & Chem 7: 02/18/19 06:33 02/18/19 06:33 Labs: Abnormal Lab Results - Last 24 Hours (Table) 02/18/19 02/18/19 Range/Units 06:33 06:33 WBC 10.7 H (3.8-10.6) k/uL RBC 3.78 L (3.80-5.40) m/uL Hgb 11.2 L (11.4-16.0) gm/dL RDW 16.0 H (11.5-15.5) % PT 19.7 H (9.0-12.0) sec INR 2.0 H (<1.2) Assessment and Plan Plan: Assessment and plan #1 coarse atrial fibrillation versus atrial flutter with rapid ventricular response, typical #2 history of mitral valve prolapse with moderate to severe mitral regurgitation #3 rheumatoid arthritis Plan Patient has converted to normal sinus rhythm and remains in a normal sinus rhyth m today. We will give her 5 mg of Coumadin today instead of her scheduled to 209/09. We will also touch base with Dr. Helm regarding the fact that the patient has converted. Discontinue the IV Cardizem. She is still scheduled to undergo her ablation procedure on Friday. DNP note has been reviewed, I agree with a documented findings and plan of care. Patient was seen and examined.
[2019-02-18] MEDS ORDERED: ENOXAPARIN 60 MG/0.6 ML SYRINGE SQ STA (14:13)
[2019-02-18] MEDS ORDERED: WARFARIN 5 MG TAB PO ONE (18:00)
[2019-02-19] MEDS: PANTOPRAZOLE 40 MG TABLET PO SCH (06:57)
[2019-02-19 07:39] LABS: INR 2.4 (<1.2); Prothrombin Time 23.5 sec (9.0-12.0)
--- NOTE | 2019-02-19 08:28 | P.PN ---
Subjective Progress Note Date: 02/18/19 This is a 69-year-old female with history of rheumatoid arthritis, hyperlipidemia, paroxysmal atrial fibrillation, mitral regurgitation. She presents to the hospital with symptoms of feeling her heart racing fast which is persistent from 4 days ago, comes in from the cardiology office. Dr. Loya she has noticed increasing frequency off her out the patient's she used to be paroxysmal atrial fibrillation now her symptoms are more on the persistent side patient was subsequently admitted from cardiology secondary to uncontrolled A. fib with RVR. Patient denies any chest pain, she does have shortness of breath on exertion, she has chronic atrial fibrillation for the past 4 years, denies any history off CHF diabetes mellitus obstructive sleep apnea COPD, no recent caffeine intake no recent alcohol intake. Patient denies any hemoptysis no edema melena hematochezia, patient has shortness of breath exertion, and palpitations. Lightheadedness, without any syncope. Patient denies any focal neurologic deficit to include TIAs. Patient to be seen consultation by Dr. longoria 02/16: Heart rate is running between 89 and 107. She denies having any palpitations or shortness of breath but feels like she takes more depressed when she is in atrial fibrillation. She periodically checks her heart rate on her phone chet. She is waiting for evaluation by Dr. Longoria. INR today at 3.4. Pharmacy is dosing Coumadin. TSH was 1.090. 02/17: Patient has been seen by Dr. Longoria with plan for JOSE L and electrical cardioversion and continuation of flecainide. Reassessment of her mitral valve regurgitation well in a sinus rhythm/JOSE L. He would like INR between 2.5 and 3.2. This morning, INR is 2.4. Plan for cardioversion on Friday, February 22. Patient denies any new complaints. No chest pain or shortness of breath. She has had no nausea or vomiting. No lightheadedness or dizziness. Note that Dr. Longoria has instructed the patient to continue taking Tymlos which will be continued here. Patient does admit that she took her own medication the last 2 days. 02/18: This morning, heart rate running in the 70s and 80s. Blood pressure 103/68, pulse ox 96% on room air. INR is 2.0. INR goal between 2.5 and 3.2. Hemoglobin is 11.2, white count 10.7. Complete metabolic panel is normal. Patient states that she converted to a sinus rhythm around 1020 last evening. Patient states that she was able to feel it. Cardizem drip is off. She is still on flecainide and metoprolol. Patient remains in a sinus rhythm at this time. Await further recommendations from Dr. Longoria. Objective - Vital Signs Vital signs: Vital Signs Temp 97.7 F 02/18/19 08:17 Pulse 81 02/18/19 08:17 Resp 18 02/18/19 08:17 BP 103/68 02/18/19 08:17 Pulse Ox 96 02/18/19 08:17 Intake & Output 02/17/19 02/18/19 02/18/19 18:59 06:59 18:59 Intake Total 720 240 Balance 720 240 Weight 74.1 kg Intake: Oral 720 240 Other: Voiding Method Toilet Toilet Toilet # Voids 1 - Exam Review Of Systems: Constitutional: No fever, no chills, no night sweats. No weight change. No weakness, fatigue or lethargy. EENT: No headache. No blurred vision or double vision, no loss of vision. No loss of Hearing, no ringing in the ears, no dizziness. No nasal drainage or congestion. No epistaxis. No sore throat. Lungs: No shortness of breath, cough, no sputum production. No wheezing. Cardiovascular: No chest pain, no lower extremity edema. No palpitations. No paroxysmal nocturnal dyspnea. No orthopnea. No lightheadedness or dizziness. No syncopal episodes. Abdominal: No abdominal pain. No nausea, vomiting. No diarrhea. No constipation. No bloody or tarry stools.. No loss of appetite. Genitourinary: No dysuria, increased frequency, urgency. No urinary retention. Musculoskeletal: No myalgias. No muscle weakness, no gait dysfunction, no frequent falls. No back pain. No neck pain. Integumentary: No wounds, no lesions. No rash or pruritus. No unusual bruising. Neurologic: No aphasia. No facial droop. No change in mentation. No head injury. No headache. No paralysis. No paresthesia. Endocrine: No abnormal blood sugars. No weight change. No excessive sweating or thirst. Physical exam: - Constitutional General appearance: average body habitus, cooperative, no acute distress noted. Patient is resting comfortably in a recliner. - EENT Eyes: anicteric sclerae, EOMI, PERRLA, dentition normal, normal appearance ENT: hard of hearing, NA/AT, normal oropharynx - Neck Neck: normal ROM Carotids: bilateral: upstroke normal Thyroid: bilateral: normal size - Respiratory Respiratory: bilateral: CTA, negative: diminished, dullness - Cardiovascular Rhythm: regular Heart sounds: normal: S2, abnormal: S1 Abnormal Heart Sounds: no systolic murmur, no diastolic murmur, no rub, no S3 Gallop, no S4 Gallop, no click, no other - Gastrointestinal General gastrointestinal: normal bowel sounds, soft - Integumentary Integumentary: decreased turgor, normal - Neurologic Neurologic: CNII-XII intact - Musculoskeletal Musculoskeletal: gait normal, strength equal bilaterally - Psychiatric Psychiatric: A&O x's 3, appropriate affect, intact judgment & insight - Labs CBC & Chem 7: 02/18/19 06:33 02/18/19 06:33 Labs: Abnormal Lab Results - Last 24 Hours (Table) 02/18/19 02/18/19 Range/Units 06:33 06:33 WBC 10.7 H (3.8-10.6) k/uL RBC 3.78 L (3.80-5.40) m/uL Hgb 11.2 L (11.4-16.0) gm/dL RDW 16.0 H (11.5-15.5) % PT 19.7 H (9.0-12.0) sec INR 2.0 H (<1.2) Assessment and Plan Plan: 1. Atrial fibrillation with rapid ventricular response in a patient with paroxysmal atrial fibrillation now with persistence of rhytm abnormalities. Patient has known history of prior atrial fibrillation, increasing in frequency related possibly tymlos, this side effect profile of tymlos noted to have palpitations and arrhythmias. Patient has converted to sinus rhythm. Cardizem drip discontinued. Consult with Dr. Longoria appreciated. Patient is planned for cardioversion on Friday, February 22. Goals to keep INR between 2.5 and 3.2. 2. Moderate to severe mitral regurgitation. Moderate to severe degree of mitral valve prolapse with normal systolic function. Patient does take Coumadin for anticoagulation, Cardiology consultation appreciated. 3. Coagulopathy with an elevated INR of 4, Coumadin will be held today and tomorrow, INR to be checked patient was on Coumadin 2.5 mg daily except 5 mg Friday and Friday 4. History of rheumatoid arthritis. Continue the patient on methotrexate 12.5 mg orally once every week 5. History of GERD. Continue Protonix 40 mg orally once every day. 6. Vitamin D deficiency. Video vitamin D supplement 5000 international units once every day. 7. DVT prophylaxis. Continue Coumadin keep her INR between 2-3. 8. GI prophylaxis. Continue Protonix 40 mg orally once every day. Discharge plan: Return home Impression and plan of care have been directed as dictated by the signing physician. Juliette Terrazas nurse practitioner acting as scribe for signing physician.
[2019-02-19] MEDS: SODIUM CHLORIDE 0.9% 1,000 ML IV SCH ×2 (08:32→22:18)
[2019-02-19] MEDS: TYMLOS SQ SCH ×2 (08:33→09:01)
[2019-02-19] MEDS: CALCIUM CARBONATE 500 MG CHEWABLE PO SCH (09:02)
[2019-02-19] MEDS: FLECAINIDE 50 MG TAB PO SCH ×2 (09:02→20:08)
[2019-02-19] MEDS: CHOLECALCIFEROL 1,000 UNIT TAB PO SCH (09:02)
[2019-02-19] MEDS: METOPROLOL SUCCINATE (ER) 50 MG TAB.ER.24H PO SCH (09:02)
[2019-02-19] MEDS: predniSONE 10 MG TAB PO SCH (09:03)
--- NOTE | 2019-02-19 13:34 | P.PN ---
Subjective Progress Note Date: 02/19/19 This is a 69-year-old female with history of rheumatoid arthritis, hyperlipidemia, paroxysmal atrial fibrillation, mitral regurgitation. She presents to the hospital with symptoms of feeling her heart racing fast which is persistent from 4 days ago, comes in from the cardiology office. Dr. Loya she has noticed increasing frequency off her out the patient's she used to be paroxysmal atrial fibrillation now her symptoms are more on the persistent side patient was subsequently admitted from cardiology secondary to uncontrolled A. fib with RVR. Patient denies any chest pain, she does have shortness of breath on exertion, she has chronic atrial fibrillation for the past 4 years, denies any history off CHF diabetes mellitus obstructive sleep apnea COPD, no recent caffeine intake no recent alcohol intake. Patient denies any hemoptysis no edema melena hematochezia, patient has shortness of breath exertion, and palpitations. Lightheadedness, without any syncope. Patient denies any focal neurologic deficit to include TIAs. Patient to be seen consultation by Dr. longoria 02/16: Heart rate is running between 89 and 107. She denies having any palpitations or shortness of breath but feels like she takes more depressed when she is in atrial fibrillation. She periodically checks her heart rate on her phone chet. She is waiting for evaluation by Dr. Longoria. INR today at 3.4. Pharmacy is dosing Coumadin. TSH was 1.090. 02/17: Patient has been seen by Dr. Longoria with plan for JOSE L and electrical cardioversion and continuation of flecainide. Reassessment of her mitral valve regurgitation well in a sinus rhythm/JOSE L. He would like INR between 2.5 and 3.2. This morning, INR is 2.4. Plan for cardioversion on Friday, February 22. Patient denies any new complaints. No chest pain or shortness of breath. She has had no nausea or vomiting. No lightheadedness or dizziness. Note that Dr. Longoria has instructed the patient to continue taking Tymlos which will be continued here. Patient does admit that she took her own medication the last 2 days. 02/18: This morning, heart rate running in the 70s and 80s. Blood pressure 103/68, pulse ox 96% on room air. INR is 2.0. INR goal between 2.5 and 3.2. Hemoglobin is 11.2, white count 10.7. Complete metabolic panel is normal. Patient states that she converted to a sinus rhythm around 1020 last evening. Patient states that she was able to feel it. Cardizem drip is off. She is still on flecainide and metoprolol. Patient remains in a sinus rhythm at this time. Await further recommendations from Dr. Longoria. 02/19: Patient remained in normal sinus rhythm through the night but transition this morning to A. fib running about 110 to 115. Her INR today is 2.4. Plan is for her to have cardioversion on Friday with Dr. Longoria. Objective - Vital Signs Vital signs: Vital Signs Temp 98.1 F 02/19/19 08:30 Pulse 89 02/19/19 08:30 Resp 18 02/19/19 08:30 BP 106/68 02/19/19 08:30 Pulse Ox 96 02/19/19 04:00 Intake & Output 02/18/19 02/19/19 02/19/19 18:59 06:59 18:59 Intake Total 240 240 Output Total 600 600 Balance -360 -600 240 Weight 73.6 kg Intake: Oral 240 240 Output: Urine 600 600 Other: Voiding Method Toilet Toilet # Voids 1 - Exam Review Of Systems: Constitutional: No fever, no chills, no night sweats. No weight change. No weakness, fatigue or lethargy. EENT: No headache. No blurred vision or double vision, no loss of vision. No loss of Hearing, no ringing in the ears, no dizziness. No nasal drainage or congestion. No epistaxis. No sore throat. Lungs: Reports mild shortness of breath, cough, no sputum production. No wheezing. Cardiovascular: No chest pain, no lower extremity edema. Reports palpitations. No paroxysmal nocturnal dyspnea. No orthopnea. No lightheadedness or dizziness. No syncopal episodes. Abdominal: No abdominal pain. No nausea, vomiting. No diarrhea. No constipation. No bloody or tarry stools.. No loss of appetite. Genitourinary: No dysuria, increased frequency, urgency. No urinary retention. Musculoskeletal: No myalgias. No muscle weakness, no gait dysfunction, no rivas quent falls. No back pain. No neck pain. Integumentary: No wounds, no lesions. No rash or pruritus. No unusual bruising. Neurologic: No aphasia. No facial droop. No change in mentation. No head injury. No headache. No paralysis. No paresthesia. Endocrine: No abnormal blood sugars. No weight change. No excessive sweating or thirst. Physical exam: - Constitutional General appearance: average body habitus, cooperative, no acute distress noted. Patient is resting comfortably in a recliner. - EENT Eyes: anicteric sclerae, EOMI, PERRLA, dentition normal, normal appearance ENT: hard of hearing, NA/AT, normal oropharynx - Neck Neck: normal ROM Carotids: bilateral: upstroke normal Thyroid: bilateral: normal size - Respiratory Respiratory: bilateral: CTA, negative: diminished, dullness - Cardiovascular Rhythm: Irregularly irregular Heart sounds: normal: S2, abnormal: S1 Abnormal Heart Sounds: no systolic murmur, no diastolic murmur, no rub, no S3 Gallop, no S4 Gallop, no click, no other - Gastrointestinal General gastrointestinal: normal bowel sounds, soft - Integumentary Integumentary: decreased turgor, normal - Neurologic Neurologic: CNII-XII intact - Musculoskeletal Musculoskeletal: gait normal, strength equal bilaterally - Psychiatric Psychiatric: A&O x's 3, appropriate affect, intact judgment & insight - Labs CBC & Chem 7: 02/18/19 06:33 02/18/19 06:33 Labs: Abnormal Lab Results - Last 24 Hours (Table) 02/19/19 Range/Units 06:45 PT 23.5 H (9.0-12.0) sec INR 2.4 H (<1.2) Assessment and Plan Plan: 1. Atrial fibrillation with rapid ventricular response in a patient with paroxysmal atrial fibrillation now with persistence of rhytm abnormalities. Patient has known history of prior atrial fibrillation, increasing in frequency related possibly tymlos, this side effect profile of tymlos noted to have palpitations and arrhythmias. Patient has converted to sinus rhythm and subsequently returned to atrial fibrillation. Consult with Dr. Longoria appreciated. Patient is planned for cardioversion on Friday, February 22. Goals to keep INR between 2.5 and 3.2. 2. Moderate to severe mitral regurgitation. Moderate to severe degree of mitral valve prolapse with normal systolic function. Patient does take Coumadin for anticoagulation, Cardiology consultation appreciated. 3. Coagulopathy with an elevated INR of 4, Coumadin will be held today and tomorrow, INR to be checked patient was on Coumadin 2.5 mg daily except 5 mg Friday and Friday 4. History of rheumatoid arthritis. Continue the patient on methotrexate 12.5 mg orally once every week 5. History of GERD. Continue Protonix 40 mg orally once every day. 6. Vitamin D deficiency. Video vitamin D supplement 5000 international units once every day. 7. DVT prophylaxis. Continue Coumadin keep her INR between 2-3. 8. GI prophylaxis. Continue Protonix 40 mg orally once every day. Discharge plan: Return home Impression and plan of care have been directed as dictated by the signing physician. Juliette Terrazas nurse practitioner acting as scribe for signing physician.
[2019-02-19] MEDS ORDERED: DILTIAZEM DRIP BOLUS FROM BAG 1 MG SOLN IV ONE (14:09)
[2019-02-19] MEDS: DILTIAZEM 125 MG in SODIUM CHLORIDE 0.9% 100 ML IV SCH (15:05)
--- NOTE | 2019-02-19 16:29 | P.PN ---
Subjective Progress Note Date: 02/19/19 This is 69-year-old female with history of mitral valve prolapse and episodes of paroxysmal atrial fibrillation. She was admitted with sustained arrhythmia and palpitations. Patient was on IV Cardizem and converted to sinus rhythm, yesterday. Patient went back into atrial fibrillation. Patient is otherwise clinically stable. She is seen by steward/stewardess second. She is waiting to have ablation done on Friday. Meanwhile we'll continue with current medical therapy. Her INR today is 2.4 Objective - Vital Signs Vital signs: Vital Signs Temp 97.4 F L 02/19/19 11:45 Pulse 120 H 02/19/19 11:45 Resp 18 02/19/19 11:45 BP 107/76 02/19/19 11:45 Pulse Ox 97 02/19/19 11:45 Intake & Output 02/18/19 02/19/19 02/19/19 18:59 06:59 18:59 Intake Total 240 245 Output Total 600 600 Balance -360 -600 245 Weight 73.6 kg Intake: Intake, IV Titration 5 Amount Diltiazem 125 mg In 5 Sodium Chloride 0.9% 100 ml @ 5 MG/HR 5 mls/hr IV .Q24H [facility] Rx#:[id number] Oral 240 240 Output: Urine 600 600 Other: Voiding Method Toilet Toilet # Voids 1 - Exam GENERAL EXAM: Patient is alert and oriented and doesn't appear to be in any acute distress HEENT: Normocephalic. Normal reaction of pupils, equal size, normal range of extraocular motion. No erythema or exudates in the throat. NECK: No masses, no nuchal rigidity. CHEST: No chest wall deformity. LUNGS: Equal air entry with no crackles or wheeze. HEART: S1 and S2 normal with no audible mumurs or gallops. Irregular heart sounds ABDOMEN: No hepatosplenomegaly, normal bowel sounds, no guarding or rigidity. SKIN: No rashes CENTRAL NERVOUS SYSTEM: No focal deficits. EXTREMITIES: No cyanosis, clubbing or edema. - Labs CBC & Chem 7: 02/18/19 06:33 02/18/19 06:33 Labs: Abnormal Lab Results - Last 24 Hours (Table) 02/19/19 Range/Units 06:45 PT 23.5 H (9.0-12.0) sec INR 2.4 H (<1.2) Assessment and Plan (1) Mitral valve disease Current Visit: Yes Status: Acute Code(s): I05.9 - RHEUMATIC MITRAL VALVE DISEASE, UNSPECIFIED SNOMED Code(s): 72119648 (2) Atrial fibrillation with rapid ventricular response Current Visit: No Status: Acute Code(s): I48.91 - UNSPECIFIED ATRIAL FIBRILLATION SNOMED Code(s): 310770373094887 Plan: Restart Cardizem drip. Continue with anticoagulation. Ablation scheduled for Friday
[2019-02-19] MEDS: WARFARIN 5 MG TAB PO SCH (17:43)
[2019-02-19] MEDS: ACETAMINOPHEN TAB 500 MG TAB PO PRN (18:38)
[2019-02-20] MEDS: DILTIAZEM 125 MG in SODIUM CHLORIDE 0.9% 100 ML IV SCH ×2 (04:19→17:55)
[2019-02-20] MEDS: PANTOPRAZOLE 40 MG TABLET PO SCH (05:56)
[2019-02-20] MEDS: CALCIUM CARBONATE 500 MG CHEWABLE PO SCH (08:47)
[2019-02-20] MEDS: CHOLECALCIFEROL 1,000 UNIT TAB PO SCH (08:47)
[2019-02-20] MEDS: FLECAINIDE 50 MG TAB PO SCH ×2 (08:47→20:40)
[2019-02-20] MEDS: METOPROLOL SUCCINATE (ER) 50 MG TAB.ER.24H PO SCH (08:47)
[2019-02-20] MEDS: predniSONE 10 MG TAB PO SCH (08:48)
[2019-02-20] MEDS: TYMLOS SQ SCH (08:48)
[2019-02-20 09:38] LABS: INR 2.6 (<1.2)
[2019-02-20] MEDS: ACETAMINOPHEN TAB 500 MG TAB PO PRN (16:22)
--- NOTE | 2019-02-20 16:42 | P.PN ---
Subjective Progress Note Date: 02/20/19 This is 69-year-old female with history of mitral valve prolapse and episodes of paroxysmal atrial fibrillation. She was admitted with sustained arrhythmia and palpitations. Patient was on IV Cardizem and converted to sinus rhythm, yesterday. Patient went back into atrial fibrillation. Patient is otherwise clinically stable. She is seen by digital advertising analyst. She is waiting to have ablation done on Friday. Meanwhile we'll continue with current medical therapy. Her INR today is 2.4: 02/20/2019: This patient is in atrial fibrillation with heart rates about 100, still on IV Cardizem. No complaints of chest pain or shortness of breath. Lungs are clear. Heart is regular. INR is about 2.6. Continue current medical therapy. Ablation scheduled for Friday Objective - Vital Signs Vital signs: Vital Signs Temp 97.8 F 02/20/19 12:00 Pulse 90 02/20/19 12:00 Resp 16 02/20/19 12:00 BP 96/65 02/20/19 12:00 Pulse Ox 97 02/20/19 12:00 Intake & Output 02/19/19 02/20/19 02/20/19 18:59 06:59 18:59 Intake Total 845 411.75 1067.375 Balance 845 411.75 1067.375 Weight 74.1 kg 73.1 kg Intake: Intake, IV Titration 5 411.75 227.375 Amount Diltiazem 125 mg In 5 91.75 67.375 Sodium Chloride 0.9% 100 ml @ 5 MG/HR 5 mls/hr IV .Q24H [facility] Rx#:[id number] Sodium Chloride 0.9% 1, 320 160 000 ml @ 20 mls/hr IV . Q24H [facility] Rx#:[id number] Oral 840 840 Other: Voiding Method Toilet # Voids 1 1 - Exam GENERAL EXAM: Patient is alert and oriented and doesn't appear to be in any acute distress HEENT: Normocephalic. Normal reaction of pupils, equal size, normal range of extraocular motion. No erythema or exudates in the throat. NECK: No masses, no nuchal rigidity. CHEST: No chest wall deformity. LUNGS: Equal air entry with no crackles or wheeze. HEART: S1 and S2 normal with no audible mumurs or gallops. Irregular heart sounds ABDOMEN: No hepatosplenomegaly, normal bowel sounds, no guarding or rigidity. SKIN: No rashes CENTRAL NERVOUS SYSTEM: No focal deficits. EXTREMITIES: No cyanosis, clubbing or edema. - Labs CBC & Chem 7: 02/18/19 06:33 02/18/19 06:33 Labs: Abnormal Lab Results - Last 24 Hours (Table) 02/20/19 Range/Units 08:54 PT 25.0 H (9.0-12.0) sec INR 2.6 H (<1.2) Assessment and Plan (1) Mitral valve disease Current Visit: Yes Status: Acute Code(s): I05.9 - RHEUMATIC MITRAL VALVE DISEASE, UNSPECIFIED SNOMED Code(s): 79382703 (2) Atrial fibrillation with rapid ventricular response Current Visit: No Status: Acute Code(s): I48.91 - UNSPECIFIED ATRIAL FIBRILLATION SNOMED Code(s): 952955073644643 Plan: Continue current medical therapy. Follow INR closely
--- NOTE | 2019-02-20 17:21 | P.PN ---
Subjective Progress Note Date: 02/20/19 This is a 69-year-old female with history of rheumatoid arthritis, hyperlipidemia, paroxysmal atrial fibrillation, mitral regurgitation. She presents to the hospital with symptoms of feeling her heart racing fast which is persistent from 4 days ago, comes in from the cardiology office. Dr. Loya she has noticed increasing frequency off her out the patient's she used to be paroxysmal atrial fibrillation now her symptoms are more on the persistent side patient was subsequently admitted from cardiology secondary to uncontrolled A. fib with RVR. Patient denies any chest pain, she does have shortness of breath on exertion, she has chronic atrial fibrillation for the past 4 years, denies any history off CHF diabetes mellitus obstructive sleep apnea COPD, no recent caffeine intake no recent alcohol intake. Patient denies any hemoptysis no edema melena hematochezia, patient has shortness of breath exertion, and palpitations. Lightheadedness, without any syncope. Patient denies any focal neurologic deficit to include TIAs. Patient to be seen consultation by Dr. longoria 02/16: Heart rate is running between 89 and 107. She denies having any palpitations or shortness of breath but feels like she takes more depressed when she is in atrial fibrillation. She periodically checks her heart rate on her phone chet. She is waiting for evaluation by Dr. Longoria. INR today at 3.4. Pharmacy is dosing Coumadin. TSH was 1.090. 02/17: Patient has been seen by Dr. Longoria with plan for JOSE L and electrical cardioversion and continuation of flecainide. Reassessment of her mitral valve regurgitation well in a sinus rhythm/JOSE L. He would like INR between 2.5 and 3.2. This morning, INR is 2.4. Plan for cardioversion on Friday, February 22. Patient denies any new complaints. No chest pain or shortness of breath. She has had no nausea or vomiting. No lightheadedness or dizziness. Note that Dr. Longoria has instructed the patient to continue taking Tymlos which will be continued here. Patient does admit that she took her own medication the last 2 days. 02/18: This morning, heart rate running in the 70s and 80s. Blood pressure 103/68, pulse ox 96% on room air. INR is 2.0. INR goal between 2.5 and 3.2. Hemoglobin is 11.2, white count 10.7. Complete metabolic panel is normal. Patient states that she converted to a sinus rhythm around 1020 last evening. Patient states that she was able to feel it. Cardizem drip is off. She is still on flecainide and metoprolol. Patient remains in a sinus rhythm at this time. Await further recommendations from Dr. Longoria. 02/19: Patient remained in normal sinus rhythm through the night but transition this morning to A. fib running about 110 to 115. Her INR today is 2.4. Plan is for her to have cardioversion on Friday with Dr. Longoria. 02/20: Patient is in atrial fibrillation, Cardizem drip has been restarted, at 5 mics an hour, on Coumadin with INR of 2.6, flecainide at 100 mg by mouth, and metoprolol 50 mg daily. Plan is for EPS study with cardioversion on Friday as scheduled Dr. longoria pharmacy dosing Coumadin Review Of Systems: Constitutional: No fever, no chills, no night sweats. No weight change. No w eakness, fatigue or lethargy. EENT: No headache. No blurred vision or double vision, no loss of vision. No loss of Hearing, no ringing in the ears, no dizziness. No nasal drainage or congestion. No epistaxis. No sore throat. Lungs: Reports mild shortness of breath, cough, no sputum production. No wheezing. Cardiovascular: No chest pain, no lower extremity edema. Reports palpitations. No paroxysmal nocturnal dyspnea. No orthopnea. No lightheadedness or dizziness. No syncopal episodes. Abdominal: No abdominal pain. No nausea, vomiting. No diarrhea. No constipation. No bloody or tarry stools.. No loss of appetite. Genitourinary: No dysuria, increased frequency, urgency. No urinary retention. Musculoskeletal: No myalgias. No muscle weakness, no gait dysfunction, no frequent falls. No back pain. No neck pain. Integumentary: No wounds, no lesions. No rash or pruritus. No unusual bruising. Neurologic: No aphasia. No facial droop. No change in mentation. No head injury. No headache. No paralysis. No paresthesia. Endocrine: No abnormal blood sugars. No weight change. No excessive sweating or thirst. Objective - Vital Signs Vital signs: Vital Signs Temp 97.9 F 02/20/19 16:00 Pulse 87 02/20/19 16:00 Resp 18 02/20/19 16:00 BP 109/61 02/20/19 16:00 Pulse Ox 97 02/20/19 16:00 Intake & Output 02/19/19 02/20/19 02/20/19 18:59 06:59 18:59 Intake Total 845 411.75 1067.375 Balance 845 411.75 1067.375 Weight 74.1 kg 73.1 kg Intake: Intake, IV Titration 5 411.75 227.375 Amount Diltiazem 125 mg In 5 91.75 67.375 Sodium Chloride 0.9% 100 ml @ 5 MG/HR 5 mls/hr IV .Q24H [facility] Rx#:[id number] Sodium Chloride 0.9% 1, 320 160 000 ml @ 20 mls/hr IV . Q24H [facility] Rx#:[id number] Oral 840 840 Other: Voiding Method Toilet # Voids 1 1 - Constitutional General appearance: Present: cooperative, no acute distress - EENT Eyes: Present: anicteric sclerae, EOMI, PERRLA, dentition normal, normal appearance ENT: Present: hearing grossly normal, NA/AT, normal oropharynx - Neck Neck: Present: normal ROM - Respiratory Respiratory: bilateral: CTA, negative: diminished, dullness, rales - Cardiovascular Rhythm: irregularly irregular Heart sounds: normal: S1, S2 Abnormal Heart Sounds: Absent: systolic murmur, diastolic murmur, rub, S3 Gallop, S4 Gallop, click, other - Integumentary Integumentary: Present: decreased turgor, normal - Neurologic Neurologic: Present: CNII-XII intact - Musculoskeletal Musculoskeletal: Present: gait normal, strength equal bilaterally - Psychiatric Psychiatric: Present: A&O x's 3, appropriate affect, intact judgment & insight - Labs CBC & Chem 7: 02/18/19 06:33 02/18/19 06:33 Labs: Abnormal Lab Results - Last 24 Hours (Table) 02/20/19 Range/Units 08:54 PT 25.0 H (9.0-12.0) sec INR 2.6 H (<1.2) Assessment and Plan Plan: 1. Atrial fibrillation with rapid ventricular response in a patient with paroxysmal atrial fibrillation now with persistence of rhytm abnormalities. Patient has known history of prior atrial fibrillation, increasing in frequency related possibly tymlos, this side effect profile of tymlos noted to have palpitations and arrhythmias. Patient has converted to sinus rhythm and subsequently returned to atrial fibrillation. Consult with Dr. Longoria appreciated. Patient is planned for cardioversion on February 22. Goals to keep INR between 2.5 and 3.2. 2. Moderate to severe mitral regurgitation. Moderate to severe degree of mitral valve prolapse with normal systolic function. Patient does take Coumadin for anticoagulation, Cardiology consultation appreciated. 3. Coagulopathy with an elevated INR of 4 on admission, Coumadin will be held today and tomorrow, INR to be checked patient was on Coumadin 2.5 mg daily except 5 mg Friday and Friday high in the INR is expected within 2.5-2.2 to allow cardioversion 4. History of rheumatoid arthritis. Continue the patient on methotrexate 12.5 mg orally once every week 5. History of GERD. Continue Protonix 40 mg orally once every day. 6. Vitamin D deficiency. Video vitamin D supplement 5000 international units once every day. 7. DVT prophylaxis. Continue Coumadin keep her INR between 2-3. 8. GI prophylaxis. Continue Protonix 40 mg orally once every day. Discharge plan: Return home
[2019-02-20] MEDS: WARFARIN 5 MG TAB PO SCH (17:55)
[2019-02-20] MEDS: SODIUM CHLORIDE 0.9% 1,000 ML IV SCH (17:59)
[2019-02-21] MEDS: PANTOPRAZOLE 40 MG TABLET PO SCH (06:38)
[2019-02-21] MEDS: ACETAMINOPHEN TAB 500 MG TAB PO PRN ×2 (07:28→17:46)
[2019-02-21] MEDS: TYMLOS SQ SCH (08:43)
[2019-02-21] MEDS: CHOLECALCIFEROL 1,000 UNIT TAB PO SCH (08:44)
[2019-02-21] MEDS: METOPROLOL SUCCINATE (ER) 50 MG TAB.ER.24H PO SCH (08:44)
[2019-02-21] MEDS: FLECAINIDE 50 MG TAB PO SCH (08:44)
[2019-02-21] MEDS: CALCIUM CARBONATE 500 MG CHEWABLE PO SCH (08:44)
[2019-02-21] MEDS: predniSONE 10 MG TAB PO SCH (08:44)
[2019-02-21 09:45] LABS: Basophils % (A) 0 %; Eosinophils # (A) 0.4 k/uL (0-0.7); Eosinophils % (A) 6 %; HCT 36.8 % (34.0-46.0); HGB 11.8 gm/dL (11.4-16.0); Lymphocytes # (A) 1.7 k/uL (1.0-4.8); Lymphocytes % (A) 24 %; MCH 29.8 pg (25.0-35.0); MCV 93.3 fL (80.0-100.0); Mean Platelet Volume 7.5; Monocytes # (A) 0.4 k/uL (0-1.0); Monocytes % (A) 6 %; Neutrophils # (A) 4.4 k/uL (1.3-7.7); Neutrophils % (A) 62 %; Platelet Count 231 k/uL (150-450); RBC 3.95 m/uL (3.80-5.40); RDW 15.5 % (11.5-15.5); WBC 7.1 k/uL (3.8-10.6)
[2019-02-21 09:53] LABS: INR 3.3 (<1.2); Prothrombin Time 32.2 sec (9.0-12.0)
--- NOTE | 2019-02-21 10:18 | P.PN ---
Subjective Progress Note Date: 02/21/19 This is 69-year-old female with history of mitral valve prolapse and episodes of paroxysmal atrial fibrillation. She was admitted with sustained arrhythmia and palpitations. Patient was on IV Cardizem and converted to sinus rhythm, yesterday. Patient went back into atrial fibrillation. Patient is otherwise clinically stable. She is seen by bulk sugar handler. She is waiting to have ablation done on Friday. Meanwhile we'll continue with current medical therapy. Her INR today is 2.4: 02/21/2019: This patient to sinus rhythm last evening. INR is 2.6. Patient has been on a Cardizem drip which we will plan to continue as patient frequently slips back into atrial fibrillation. She is scheduled for ablation Friday. Objective - Vital Signs Vital signs: Vital Signs Temp 98.1 F 02/21/19 07:38 Pulse 81 02/21/19 07:38 Resp 16 02/21/19 07:38 BP 99/57 02/21/19 07:38 Pulse Ox 97 02/21/19 07:38 Intake & Output 02/20/19 02/21/19 02/21/19 18:59 06:59 18:59 Intake Total 1113.542 60 360 Balance 1113.542 60 360 Weight 74 kg Intake: Intake, IV Titration 273.542 60 Amount Diltiazem 125 mg In 113.542 Sodium Chloride 0.9% 100 ml @ 5 MG/HR 5 mls/hr IV .Q24H [facility] Rx#:[id number] Sodium Chloride 0.9% 1, 160 60 000 ml @ 20 mls/hr IV . Q24H [facility] Rx#:[id number] Oral 840 360 Other: Voiding Method Toilet # Voids 1 - Exam GENERAL EXAM: Patient is alert and oriented and doesn't appear to be in any acute distress HEENT: Normocephalic. Normal reaction of pupils, equal size, normal range of extraocular motion. No erythema or exudates in the throat. NECK: No masses, no nuchal rigidity. CHEST: No chest wall deformity. LUNGS: Equal air entry with no crackles or wheeze. HEART: S1 and S2 normal with no audible mumurs or gallops. Regular heart sounds ABDOMEN: No hepatosplenomegaly, normal bowel sounds, no guarding or rigidity. SKIN: No rashes CENTRAL NERVOUS SYSTEM: No focal deficits. EXTREMITIES: No cyanosis, clubbing or edema. - Labs CBC & Chem 7: 02/21/19 09:34 02/18/19 06:33 Labs: Abnormal Lab Results - Last 24 Hours (Table) 02/21/19 Range/Units 09:34 PT 32.2 H (9.0-12.0) sec INR 3.3 H (<1.2) Assessment and Plan Plan: (1) Mitral valve disease Current Visit: Yes Status: Acute Code(s): I05.9 - RHEUMATIC MITRAL VALVE DISEASE, UNSPECIFIED SNOMED Code(s): 64664612 (2) Atrial fibrillation with rapid ventricular response Current Visit: No Status: Acute Code(s): I48.91 - UNSPECIFIED ATRIAL FIBRILLATION SNOMED Code(s): 431245096241534 Plan: Continue current medical therapy including Cardizem drip, flecainide 100 mg every 12 hours and Toprol-XL 50 mg daily. Follow INR closely. Ablation scheduled Friday. Nurse practitioner note has been reviewed, I agree with document findings and plan of care. Patient has been seen and examined
[2019-02-21 10:20] LABS: Albumin 3.7 g/dL (3.5-5.0); Calcium 9.1 mg/dL (8.4-10.2); Potassium 3.9 mmol/L (3.5-5.1); Total Bilirubin 0.4 mg/dL (0.2-1.3); Total Protein 6.9 g/dL (6.3-8.2)
[2019-02-21] MEDS: SODIUM CHLORIDE 0.9% 1,000 ML IV SCH (12:39)
--- NOTE | 2019-02-21 16:09 | P.PN ---
Subjective Progress Note Date: 02/21/19 This is a 69-year-old female with history of rheumatoid arthritis, hyperlipidemia, paroxysmal atrial fibrillation, mitral regurgitation. She presents to the hospital with symptoms of feeling her heart racing fast which is persistent from 4 days ago, comes in from the cardiology office. Dr. Loya she has noticed increasing frequency off her out the patient's she used to be paroxysmal atrial fibrillation now her symptoms are more on the persistent side patient was subsequently admitted from cardiology secondary to uncontrolled A. fib with RVR. Patient denies any chest pain, she does have shortness of breath on exertion, she has chronic atrial fibrillation for the past 4 years, denies any history off CHF diabetes mellitus obstructive sleep apnea COPD, no recent caffeine intake no recent alcohol intake. Patient denies any hemoptysis no edema melena hematochezia, patient has shortness of breath exertion, and palpitations. Lightheadedness, without any syncope. Patient denies any focal neurologic deficit to include TIAs. Patient to be seen consultation by Dr. longoria 02/16: Heart rate is running between 89 and 107. She denies having any palpitations or shortness of breath but feels like she takes more depressed when she is in atrial fibrillation. She periodically checks her heart rate on her phone chet. She is waiting for evaluation by Dr. Longoria. INR today at 3.4. Pharmacy is dosing Coumadin. TSH was 1.090. 02/17: Patient has been seen by Dr. Longoria with plan for JOSE L and electrical cardioversion and continuation of flecainide. Reassessment of her mitral valve regurgitation well in a sinus rhythm/JOSE L. He would like INR between 2.5 and 3.2. This morning, INR is 2.4. Plan for cardioversion on Friday, February 22. Patient denies any new complaints. No chest pain or shortness of breath. She has had no nausea or vomiting. No lightheadedness or dizziness. Note that Dr. Longoria has instructed the patient to continue taking Tymlos which will be continued here. Patient does admit that she took her own medication the last 2 days. 02/18: This morning, heart rate running in the 70s and 80s. Blood pressure 103/68, pulse ox 96% on room air. INR is 2.0. INR goal between 2.5 and 3.2. Hemoglobin is 11.2, white count 10.7. Complete metabolic panel is normal. Patient states that she converted to a sinus rhythm around 1020 last evening. Patient states that she was able to feel it. Cardizem drip is off. She is still on flecainide and metoprolol. Patient remains in a sinus rhythm at this time. Await further recommendations from Dr. Longoria. 02/19: Patient remained in normal sinus rhythm through the night but transition this morning to A. fib running about 110 to 115. Her INR today is 2.4. Plan is for her to have cardioversion on Friday with Dr. Longoria. 02/20: Patient is in atrial fibrillation, Cardizem drip has been restarted, at 5 mics an hour, on Coumadin with INR of 2.6, flecainide at 100 mg by mouth, and metoprolol 50 mg daily. Plan is for EPS study with cardioversion on Friday as scheduled Dr. longoria pharmacy dosing Coumadin 02/21: Patient remains in atrial fibrillation daily, denies any chest pain or back has palpitations, no orthopnea, ionized 3.3, JOSE L electrical cardioversion and A. fib ablation scheduled for Friday by Dr. longoria Review Of Systems: Constitutional: No fever, no chills, no night sweats. No weight change. No weakness, fatigue or lethargy. EENT: No headache. No blurred vision or double vision, no loss of vision. No loss of Hearing, no ringing in the ears, no dizziness. No nasal drainage or congestion. No epistaxis. No sore throat. Lungs: Reports mild shortness of breath, cough, no sputum production. No wheezing. Cardiovascular: No chest pain, no lower extremity edema. Reports palpitations. No paroxysmal nocturnal dyspnea. No orthopnea. No lightheadedness or dizziness. No syncopal episodes. Abdominal: No abdominal pain. No nausea, vomiting. No diarrhea. No constipation. No bloody or tarry stools.. No loss of appetite. Genitourinary: No dysuria, increased frequency, urgency. No urinary retention. Musculoskeletal: No myalgias. No muscle weakness, no gait dysfunction, no frequent falls. No back pain. No neck pain. Integumentary: No wounds, no lesions. No rash or pruritus. No unusual bruising. Neurologic: No aphasia. No facial droop. No change in mentation. No head injury. No headache. No paralysis. No paresthesia. Endocrine: No abnormal blood sugars. No weight change. No excessive sweating or thirst. Objective - Vital Signs Vital signs: Vital Signs Temp 97.7 F 02/21/19 15:29 Pulse 72 02/21/19 15:29 Resp 16 02/21/19 15:29 BP 128/67 02/21/19 15:29 Pulse Ox 96 02/21/19 15:29 Intake & Output 02/20/19 02/21/19 02/21/19 18:59 06:59 18:59 Intake Total 1113.592 98 0387 Balance 1113.092 59 4417 Weight 74 kg Intake: Intake, IV Titration 273.542 60 140 Amount Diltiazem 125 mg In 113.542 Sodium Chloride 0.9% 100 ml @ 5 MG/HR 5 mls/hr IV .Q24H [facility] Rx#:[id number] Sodium Chloride 0.9% 1, 160 60 140 000 ml @ 20 mls/hr IV . Q24H [facility] Rx#:[id number] Oral 840 1044 Other: Voiding Method Toilet # Voids 1 2 - Constitutional General appearance: Present: cooperative, no acute distress - EENT Eyes: Present: EOMI, PERRLA, dentition normal, normal appearance ENT: Present: hearing grossly normal, normal oropharynx - Neck Neck: Present: normal ROM - Respiratory Respiratory: bilateral: CTA, negative: diminished, dullness, rales - Cardiovascular Rhythm: irregularly irregular Heart sounds: normal: S1, S2 Abnormal Heart Sounds: Absent: systolic murmur, diastolic murmur, rub, S3 Gallop, S4 Gallop, click, other - Gastrointestinal General gastrointestinal: Present: normal bowel sounds, soft - Integumentary Integumentary: Present: decreased turgor, normal - Neurologic Neurologic: Present: CNII-XII intact - Musculoskeletal Musculoskeletal: Present: gait normal - Psychiatric Psychiatric: Present: A&O x's 3, appropriate affect, intact judgment & insight - Labs CBC & Chem 7: 02/21/19 09:34 02/21/19 09:34 Labs: Abnormal Lab Results - Last 24 Hours (Table) 06/16/19 06/16/19 Range/Units 09:34 09:34 PT 32.2 H (9.0-12.0) sec INR 3.3 H (<1.2) Chloride 109 H (98-107) mmol/L Glucose 138 H (74-99) mg/dL Assessment and Plan Plan: 1. Atrial fibrillation with rapid ventricular response in a patient with paroxysmal atrial fibrillation now with persistence of rhytm abnormalities. Patient has known history of prior atrial fibrillation, increasing in frequency related possibly tymlos, this is cleared to be maintained by Dr. longoria, this side effect profile of tymlos noted to have palpitations and arrhythmias. Patient has converted to sinus rhythm and subsequently returned to atrial fibrillation. Consult with Dr. Longoria appreciated. Patient is planned for electrical cardioversion and atrial fibrillation ablation on February 22. Goals to keep INR between 2.5 and 3.2. 2. Moderate to severe mitral regurgitation. Moderate to severe degree of mitral valve prolapse with normal systolic function. Patient does take Coumadin for anticoagulation, Cardiology consultation appreciated. 3. Coagulopathy with an elevated INR of 4 on admission, Coumadin will be held today and tomorrow, INR to be checked patient was on Coumadin 2.5 mg daily except 5 mg Friday and Friday high in the INR is expected within 2.5-2.2 to allow cardioversion 4. History of rheumatoid arthritis. Continue the patient on methotrexate 12.5 mg orally once every week 5. History of GERD. Continue Protonix 40 mg orally once every day. 6. Vitamin D deficiency. Video vitamin D supplement 5000 international units once every day. 7. DVT prophylaxis. Continue Coumadin keep her INR between 2-3. 8. GI prophylaxis. Continue Protonix 40 mg orally once every day. Discharge plan: Return home
[2019-02-21] MEDS ORDERED: WARFARIN 3 MG TAB PO ONE (18:00)
[2019-02-22] MEDS: TYMLOS SQ SCH (04:55)
[2019-02-22] MEDS: METOPROLOL SUCCINATE (ER) 50 MG TAB.ER.24H PO SCH (06:34)
[2019-02-22] MEDS: CHOLECALCIFEROL 1,000 UNIT TAB PO SCH (06:35)
[2019-02-22] MEDS: predniSONE 10 MG TAB PO SCH (06:35)
[2019-02-22] MEDS: PANTOPRAZOLE 40 MG TABLET PO SCH (06:36)
[2019-02-22] MEDS: CALCIUM CARBONATE 500 MG CHEWABLE PO SCH (06:39)
[2019-02-22 07:01] LABS: Anisocytosis Slight; Basophils % (A) 1 %; Eosinophils # (A) 0.3 k/uL (0-0.7); Eosinophils % (A) 5 %; HCT 35.6 % (34.0-46.0); HGB 11.4 gm/dL (11.4-16.0); Lymphocytes # (A) 1.8 k/uL (1.0-4.8); Lymphocytes % (A) 30 %; MCH 29.3 pg (25.0-35.0); MCHC 32.2 g/dL (31.0-37.0); MCV 91.1 fL (80.0-100.0); Mean Platelet Volume 8.3; Monocytes # (A) 0.5 k/uL (0-1.0); Monocytes % (A) 8 %; Neutrophils # (A) 3.1 k/uL (1.3-7.7); Neutrophils % (A) 53 %; Platelet Count 244 k/uL (150-450); WBC 5.9 k/uL (3.8-10.6)
[2019-02-22 07:05] LABS: INR 3.5 (<1.2); Prothrombin Time 33.9 sec (9.0-12.0)
[2019-02-22 07:17] LABS: Albumin 3.7 g/dL (3.5-5.0); Calcium 9.2 mg/dL (8.4-10.2); Total Bilirubin 0.4 mg/dL (0.2-1.3)
[2019-02-22] MEDS ORDERED: GLYCOPYRROLATE 0.2 MG/ML 2 ML VIAL ONE (07:28)
[2019-02-22] MEDS ORDERED: fentaNYL (PF) 50 MCG/ML 2 ML AMP ONE (07:28)
[2019-02-22] MEDS ORDERED: SUCCINYLCHOLINE CHLORIDE 100 MG/5 ML SYR IV ONE (07:28)
[2019-02-22] MEDS ORDERED: HEPARIN SODIUM,PORCINE 5,000 UNIT/ML 1 ML VIAL ONE (07:28)
[2019-02-22] MEDS ORDERED: MIDAZOLAM 2 MG/2 ML VIAL ONE (07:28)
[2019-02-22] MEDS ORDERED: ROCURONIUM BROMIDE 10 MG/ML 10 ML VIAL IV ONE (07:28)
[2019-02-22] MEDS ORDERED: NEOSTIGMINE 1 MG/ML 10 ML VIAL ONE (07:28)
[2019-02-22] MEDS ORDERED: PROTAMINE SULFATE 10 MG/ML 5 ML VIAL IV ONE ×2 (07:28→14:46)
[2019-02-22] MEDS ORDERED: PROPOFOL 10 MG/ML 20 ML VIAL IV ONE (07:28)
[2019-02-22] MEDS ORDERED: LIDOCAINE 1% INJ 10MG/ML (20 ML MDV) ONE (07:36)
[2019-02-22] MEDS ORDERED: IV FLUID CONTINUATION 1,000 ML IV ONE (07:41)
[2019-02-22] MEDS ORDERED: ceFAZolin IN SWFI 2 GM/20 ML SYRINGE IVP ONE (08:12)
[2019-02-22] MEDS ORDERED: HEPARIN SOD,PORK IN 0.45% NACL 25,000 UNIT in 0.45% NACL 1 250ML.BAG IV ONE (08:29)
[2019-02-22] MEDS ORDERED: LIDOCAINE 1% INJ 10MG/ML (20 ML MDV) SQ ONE (08:33)
[2019-02-22 10:40] VITALS: BMI 28.7
[2019-02-22] MEDS ORDERED: methylPREDNISolone SOD SUCCI 125 MG/2 ML VIAL ONE (11:15)
[2019-02-22] MEDS ORDERED: IOPAMIDOL-370 100ML BTL INJ ONE (12:09)
[2019-02-22] MEDS ORDERED: HEPARIN SODIUM (1,000 UNIT/ML) 1,000 UNIT in SODIUM CHLORIDE 0.9% 1,000 ML IRRIGATION ONE (12:24)
[2019-02-22] MEDS ORDERED: LACTATED RINGERS 1,000 ML IV ONE (14:11)
[2019-02-22] MEDS: DILTIAZEM 125 MG in SODIUM CHLORIDE 0.9% 100 ML IV SCH (14:32)
[2019-02-22] MEDS ORDERED: ACETAMINOPHEN TAB 325 MG TAB PO PRN (14:52)
--- NOTE | 2019-02-22 15:33 | P.PCN ---
Preoperative Diagnosis: Diagnosis Paroxysmal Atrial fibrillation, symptomatic, refractory to therapy Atrial tachycardia with ventricular response of about 160 beats a minute Another atrial tachycardia that resembled atrial flutter on telemetry Result Successful pulmonary vein isolation of all veins using cryo-ablation in sinus rhythm Complete entrance block in all 4 veins confirmed No evidence for phrenic nerve injury Following successful cryoablation of the pulmonary veins, an EP study induced an atrial tachycardia 3-D electro-anatomic mapping revealed a roof tachycardia in the left atrium Successful ablation and termination of left atrial roof tachycardia Patient had an underlying second atrial tachycardia Left and right atria were mapped. Activation appeared to be going around the tricuspid valve Twelve-lead ECG was consistent with typical atrial flutter Entrainment was not possible Successful termination during atrial flutter ablation/cavo tricuspid systems Patient went back into sinus rhythm Esophageal deflection YES Procedure details Patient was brought to the EP lab in a fasting state. Written informed consent was obtained prior to the procedure. Procedure performed under general anesthesia After initial muscle relaxant use, muscle relaxants were not given thereafter in order to assess phrenic nerve during procedure. Patient prepped and draped as per protocol Full cryo-set up with standard preparation of the cryoablation tools done. Femoral Venous access obtained on the right and left groins Venous and arterial Sheaths placed. Diagnostic catheters for the high right atrium, phrenic nerve stimulation and pacing, His bundle, RV and coronary sinus placed Intracardiac echo catheter placed. Long sheath placed in the right atrium Left and right transseptal catheterization performed under intracardiac echo guidance. Intravenous heparin with aCT above 300 Later, catheter positioning and balloon positioning in the left atrium, under intracardiac echo guidance Diagnostic EP study with Drug infusion Coronary sinus pacing and recording Baseline measurements 966 ms, NM interval 185 ms, QRS 149 ms, right bundle branch block pattern QT 455 ms Atrial pacing performed from the high right atrium and the coronary sinus RV pacing Sinus recovery times at a pacing cycle length of 500 ms was 1338 ms. Corrected sinus node recovery times mildly prolonged AV node Wenckebach block for 20 ms VA Wenckebach block 480 ms Atrial extra stimulation from the coronary sinus Burst ablation for Evgeny sinus performed Atrial tachycardias induced Transseptal catheterization performed RA pressure 13/7/11 LA pressure 48/3/1, prominent V waves consistent with the presence of moderate severe mitral regurgitation Transseptal catheterization performed with standard sheath. The cryoablation sheath was then placed with an over the wire exchange without any acute complications. All 4 pulmonary veins were isolated in the following sequence: Left superior followed by left inferior followed by right superior followed by right inferior The cryo-ablation balloon was placed at the os of each vein 1.5 mL of IV dye was injected to confirm an occluded vein Goal during cryoablation was to achieve complete occlusion of the pulmonary vein, achieve -30 degrees C at 30 seconds and achieve -40 degrees C at 60 seco nds and a time to effect of less than 60-90 seconds, . If not the balloon was repositioned to obtain this result After completion of Cryoblation with durations from 180-240 seconds, entrance block was confirmed with the Attain circular catheter in a roving fashion around the antrum of the pulmonary veins Phrenic nerve pacing was performed from the SVC, right innominate vein area and diaphragm voltage was monitored. Diaphragmatic contractions were also monitored manually for strength of contraction. Parameter goals for each cryo freeze Complete occlusion of the appropriate vein -30 degrees C by 30 seconds -40 degrees C by 60 seconds Minimum between minus 40-55 degrees C Thaw time greater than 10 seconds Balloon visualized by intracardiac echo The esophagus was intubated. Esophageal Temperature monitoring with a CIRCA catheter formed. Esophageal deflection for hypothermia of the esophagus below 30 degrees C Left superior pulmonary vein Complete isolation, entrance block Left inferior pulmonary vein Complete isolation, entrance block Right superior pulmonary vein, during phrenic nerve pacing Complete isolation, entrance block Right inferior pulmonary vein, during phrenic nerve pacing Complete isolation, entrance block At the end of the procedure the Achieve catheter was once again used to check for entrance block Phrenic nerve stimulation was performed to confirm diaphragmatic stimulation the end of the procedure Cine fluoroscopy was performed at the very end of the procedure to confirm movement of both diaphragms with inspiration and expiration Diagnostic EP study thereafter induced atrial tachycardia To atrial tachycardias were ablated sequentially and patient converted to sinus rhythm 3-D electrical anatomic mapping of the left atrium was performed Left atrial roof tachycardia ablated Within the first few lesions of at of delivery, activation pattern changed Subsequently the second atrial tachycardia was mapped first in the left atrium and then the right atrium Appeared to be a cavo tricuspid reentry Successful mapping and ablation and termination of the tachycardia to sinus rhythm At the end of the procedure the patient was extubated Heparin was reversed Venous sheaths were removed and hemostasis assured Procedures performed (PVI - CRYO Ablation) Diagnostic EP study with attempted arrhythmia induction CS pacing and recording Left and right transseptal catheterization 3-D electro-anatomic mapping Intracardiac echocardiography Pulmonary vein isolation with transseptal and comprehensive EPS, [id number] Left atrial roof line, +[id number] Atrial flutter, typical ablation 20232 Drug Infusion +[id number] Long procedure. Please see separate dictation
--- NOTE | 2019-02-22 15:38 | P.PRLE ---
RE: Didi Ruano Dear Imad Patient underwent successful cryoablation of the pulmonary veins Subsequently she had a left atrial roof tachycardia, reentry which was successfully ablated Thereafter she hd typical atrial flutter which is also successfully ablated sinus rhythm She will continue Coumadin but I lost her to stop flecainide as well as propafenone The dose of metoprolol is being reduced to 25 mg by mouth daily since she is Sick Sinus Syndrome as well as AV node disease She will continue to follow with you and Dr. Loya as before Thank you for entrusting me with the care of the patient Warm regards Sincerely Yosef Longoria
--- NOTE | 2019-02-22 15:41 | P.PCN ---
Preoperative Diagnosis: Patient underwent cryoablation of the pulmonary veins Thereafter she underwent a left atrial roof tachycardia ablation Thereafter she underwent a typical atrial flutter ablation This is a difficult and long procedure On account of her cardiac rotation transseptal access to the left atrium to prolong time Multiple times with a BRK needle, making different bends to access the fossa ovalis, which failed Patient remained hemodynamic stable Subsequently a BR K1 needle was used and transseptal access was obtained This took an hour of total time Thereafter after successful cryoablation the pulmonary veins a diagnostic EP study is performed Initially the tachycardia was easy to induce but then during mapping a terminated and it took a long time to induce tachycardia 1 g The tachycardia is more easily inducible off Isuprel than on Isuprel
[2019-02-22] MEDS ORDERED: ACETAMINOPHEN IV (For NPO) 1,000 MG in EMPTY BAG 1 BAG IVPB ONE (16:00)
[2019-02-22] MEDS ORDERED: ACETAMINOPHEN IV (For NPO) 1,000 MG/100 ML VIAL IVPB ONE (16:09)
[2019-02-22] MEDS: SODIUM CHLORIDE 0.9% 1,000 ML IV SCH (17:16)
[2019-02-22] MEDS ORDERED: HYDROmorphone 1 MG/ML 1 ML SYRINGE IVP STA (20:25)
[2019-02-22] MEDS: BENZOCAINE/MENTHOL LOZENG 1 EACH LOZENGE MUCOUS MEM PRN (22:43)
[2019-02-22] MEDS: BACLOFEN 10 MG TAB PO SCH (22:43)
[2019-02-22 23:27] VITALS: RESP 16
[2019-02-23] MEDS: PANTOPRAZOLE 40 MG TABLET PO SCH (05:39)
[2019-02-23] MEDS: HYDROcodone/APAP 5-325MG 1 EACH TAB PO PRN ×2 (05:40→10:41)
[2019-02-23] MEDS: TYMLOS SQ SCH (05:41)
[2019-02-23 06:39] LABS: INR 3.1 (<1.2); Prothrombin Time 29.5 sec (9.0-12.0)
--- NOTE | 2019-02-23 08:15 | P.PN ---
Subjective Patient is doing well. She complains of tingling and numbness in the tips of her fingers and toes. Last night she had a lot of back pain Otherwise no chest discomfort dizziness lightheadedness or palpitations she looks comfortable no respiratory distress she is lying flat in bed when I saw her and made her sit up at the edge of the bed On examination her pulse rate is in the 80s, afebrile 97.6F, blood pressure 115 07 4 mmHg Respirations are normal No JVD Heart sounds are soft there's a pansystolic murmur of mitral regurgitation Breath sounds are clear no rhonchi no crackles Abdomen soft nontender Extremities warm no edema Groins of healed well but is no hematoma no swelling No lower extremity edema INR 3.1 today Impression Paroxysmal atrial fibrillation status post cryoablation of all 4 pulmonary veins with complete isolation of the veins with entrance and exit block Inducible left atrial roof macro reentry and typical atrial flutter Inducible left atrial macro reentry involving the roof of the left atrium status post successful ablation in termination of the tachycardia with a left atrial roof line Underlying atrial flutter, status post successful ablation in termination of the tachycardia and sinus rhythm Mildly abnormal sinus node function and AV node function Plan Start Coumadin 3 mgs/day Stop flecainide Stop propafenone Reduce metoprolol to 25 mg by mouth daily Reduce Coumadin to 3 mg by mouth daily Incentive spirometry Ambulate in the hallways with physical therapy today Likely discharge later this evening Follow-up in the office for PT/INR check in a week Follow-up with Dr. Loya in about 2 weeks Follow-up with Dr. Gamez in 3 months Discussed with nurse practitioner, discussed with nurse and patient Objective - Vital Signs Vital signs: Vital Signs Temp 97.6 F 02/23/19 04:00 Pulse 87 02/23/19 04:00 Resp 16 02/23/19 04:00 BP 115/74 02/23/19 04:00 Pulse Ox 95 02/23/19 04:00 Intake & Output 02/22/19 02/23/19 02/23/19 18:59 06:59 18:59 Intake Total 1377 100 Output Total 650 700 Balance 727 -600 Weight 73.6 kg 74 kg Intake: IV 1377 Oral 100 Output: Urine 650 700 Other: Voiding Method Toilet Indwelling Catheter - Labs CBC & Chem 7: 02/22/19 06:10 02/22/19 06:10 Labs: Abnormal Lab Results - Last 24 Hours (Table) 02/23/19 Range/Units 05:59 PT 29.5 H (9.0-12.0) sec INR 3.1 H (<1.2)
[2019-02-23] MEDS: BACLOFEN 10 MG TAB PO SCH (08:33)
[2019-02-23] MEDS: CHOLECALCIFEROL 1,000 UNIT TAB PO SCH (08:33)
[2019-02-23] MEDS: CALCIUM CARBONATE 500 MG CHEWABLE PO SCH (08:33)
[2019-02-23] MEDS ORDERED: METOPROLOL SUCCINATE (ER) 25 MG TAB.ER.24H PO SCH (09:00)
[2019-02-23] MEDS ORDERED: WARFARIN 3 MG TAB PO SCH ×2 (10:00→18:00)
[2019-02-23] MEDS: BENZOCAINE/MENTHOL LOZENG 1 EACH LOZENGE MUCOUS MEM PRN ×2 (10:41→17:37)
[2019-02-23] MEDS: predniSONE 10 MG TAB PO SCH (10:42)
[2019-02-23 11:09] VITALS: TEMP 98
--- NOTE | 2019-02-23 12:57 | P.PN ---
Subjective Progress Note Date: 02/23/19 This is a 69-year-old female [facility] with Garth kasper with RVR. Patient also has a moderate to severe degree of mitral regurgitation, because of mitral valve prolapse. History of hyperlipidemia, rheumatoid arthritis, nicotine dependence. Patient was seen and examined this morning, she continues to be in atrial fibrillation, rate is under better control with IV Cardizem. Consultation has been requested for Dr. Longoria to come and evaluate the patient. Blood pressure 90/50 with a heart rate in the 80s, 100% on room air. White blood cell count 10.2, hemoglobin 12.0, platelet count 252. INR 3.4. Sodium 140, potassium 4.2, BUN 16 and creatinine 0.9. 02/17/2019 Patient was seen in consultation by Dr. Longoria, scheduled for ablation procedure on Friday.continues to be in atrial flutter with a controlled ventricular response. INR today is 2.4. Sodium 138, potassium 4.1, BUN to 20 and creatinine 0.9.we will give the patient 3 mg of Coumadin today, keep the INR in the range of 2.5-3.0 02/18/2019 She converted over to normal sinus rhythm last evening and remains in a sinus rhythm this morning. We will discontinue the IV Cardizem today. Her INR today is 2.0 so we will give her 5 mg within instead of the 2-1/2. 02/23/2019 Patient was taken to the EP lab yesterday underwent cryoablation of the pulmonary veins, thereafter she underwent a left atrial roof tachycardia ablation and atrial flutter ablation. She was seen and examined this morning, feeling well. Continues to be in a normal sinus rhythm, hemodynamically stable. She did ambulate one time in the hallway, without any symptoms, second time she ambulated she did state that she had some mild shortness of breath and dizziness. On exam her lungs were clear, continue to be in normal sinus rhythm, blood pressure and heart rate stable. INR today 3.1. Objective - Vital Signs Vital signs: Vital Signs Temp 98.0 F 02/23/19 12:00 Pulse 95 02/23/19 12:00 Resp 16 02/23/19 12:00 BP 128/60 02/23/19 12:00 Pulse Ox 97 02/23/19 12:00 Intake & Output 02/22/19 02/23/19 02/23/19 18:59 06:59 18:59 Intake Total 1377 100 470 Output Total 650 700 Balance 727 -600 470 Weight 73.6 kg 74 kg Intake: IV 1377 Oral 100 470 Output: Urine 650 700 Other: Voiding Method Toilet Toilet Indwelling Catheter - Exam PHYSICAL EXAMINATION: GENERAL: 69-year-old female in no acute distress at the time of my examination HEENT: Head is atraumatic, normocephalic. Pupils equal, round. Sclera anicteric. Conjunctiva are clear. Mucous membranes of the mouth are moist. Neck is supple. There is no elevated jugular venous pressure.] bruit is heard. HEART EXAMINATION: Heart S1 and S2 systolic murmur is heard at the apex. CHEST EXAMINATION: Lungs are clear to auscultation and precussion. No chest wall tenderness is noted on palpation or with deep breathing. ABDOMEN: Soft, nontender. Bowel sounds are heard. No organomegaly noted. EXTREMITIES: 2+ peripheral pulses with no evidence of peripheral edema and no calf tenderness noted. Right and left groins are soft, no evidence of any ecchymosis, suture remains in place to bilateral groins. NEUROLOGIC patient is awake, alert and oriented 3 . . - Labs CBC & Chem 7: 02/22/19 06:10 02/22/19 06:10 Labs: Abnormal Lab Results - Last 24 Hours (Table) 02/23/19 Range/Units 05:59 PT 29.5 H (9.0-12.0) sec INR 3.1 H (<1.2) Assessment and Plan Plan: Assessment and plan #1 coarse atrial fibrillation versus atrial flutter with rapid ventricular response, typical #2 history of mitral valve prolapse with moderate to severe mitral regurgitation #3 rheumatoid arthritis Plan Patient underwent ablation for left atrial tachycardia as well as atrial flutter ablation yesterday. Hemodynamically stable today. We will remove the sutures from her bilateral groins and increase activity today. Plan to discharge home today. She will continue on Coumadin at 3 mg daily, her flecainide and Rythmol have been discontinued. Metoprolol decreased to 25 mg daily. She will have a follow-up appointment with Dr. VC Loya in the office on March 08, she then will follow with Dr. Zoroastrianism in the office on May 26. DNP note has been reviewed, I agree with a documented findings and plan of care. Patient was seen and examined.
--- NOTE | 2019-02-23 13:54 | P.DS ---
Providers Date of admission: 02/15/19 13:22 Expected date of discharge: 02/23/19 Attending physician: Les Esteban Consults: 02/15/19 13:53 Consult Physician Routine Consulting Provider: Yosef Rodriguez Consult Reason/Comments: AFIB/Aflutter RVR Do you want consulting provider notified?: Yes Placement Type Exists?: Yes Primary care physician: [facility] Course: This is a 69-year-old female with history of rheumatoid arthritis, hyperlipidemia, paroxysmal atrial fibrillation, mitral regurgitation. She presents to the hospital with symptoms of feeling her heart racing fast which is persistent from 4 days ago, comes in from the cardiology office. Dr. Loya she has noticed increasing frequency off her out the patient's she used to be paroxysmal atrial fibrillation now her symptoms are more on the persistent side patient was subsequently admitted from cardiology secondary to uncontrolled A. fib with RVR. Patient denies any chest pain, she does have shortness of breath on exertion, she has chronic atrial fibrillation for the past 4 years, denies any history off CHF diabetes mellitus obstructive sleep apnea COPD, no recent caffeine intake no recent alcohol intake. Patient denies any hemoptysis no edema melena hematochezia, patient has shortness of breath exertion, and palpitations. Lightheadedness, without any syncope. Patient denies any focal neurologic deficit to include TIAs. Patient to be seen consultation by Dr. rodriguez 02/16: Heart rate is running between 89 and 107. She denies having any palpitations or shortness of breath but feels like she takes more depressed when she is in atrial fibrillation. She periodically checks her heart rate on her phone chet. She is waiting for evaluation by Dr. Rodriguez. INR today at 3.4. P harmacy is dosing Coumadin. TSH was 1.090. 02/17: Patient has been seen by Dr. Rodriguez with plan for JOSE L and electrical cardioversion and continuation of flecainide. Reassessment of her mitral valve regurgitation well in a sinus rhythm/JOSE L. He would like INR between 2.5 and 3.2. This morning, INR is 2.4. Plan for cardioversion on Friday, February 22. Patient denies any new complaints. No chest pain or shortness of breath. She has had no nausea or vomiting. No lightheadedness or dizziness. Note that Dr. Rodriguez has instructed the patient to continue taking Tymlos which will be continued here. Patient does admit that she took her own medication the last 2 days. 02/18: This morning, heart rate running in the 70s and 80s. Blood pressure 103/68, pulse ox 96% on room air. INR is 2.0. INR goal between 2.5 and 3.2. Hemoglobin is 11.2, white count 10.7. Complete metabolic panel is normal. Patient states that she converted to a sinus rhythm around 1020 last evening. Patient states that she was able to feel it. Cardizem drip is off. She is still on flecainide and metoprolol. Patient remains in a sinus rhythm at this time. Await further recommendations from Dr. Rodriguez. 02/19: Patient remained in normal sinus rhythm through the night but transition this morning to A. fib running about 110 to 115. Her INR today is 2.4. Plan is for her to have cardioversion on Friday with Dr. Rodriguez. 02/20: Patient is in atrial fibrillation, Cardizem drip has been restarted, at 5 mics an hour, on Coumadin with INR of 2.6, flecainide at 100 mg by mouth, and metoprolol 50 mg daily. Plan is for EPS study with cardioversion on Friday as scheduled Dr. rodriguez pharmacy dosing Coumadin 02/21: Patient remains in atrial fibrillation daily, denies any chest pain or back has palpitations, no orthopnea, ionized 3.3, JOSE L electrical cardioversion and A. fib ablation scheduled for Friday by Dr. rodriguez 02/23: Yesterday, patient underwent cryoablation of the pulmonary veins and a left atrial roof tachycardia ablation and atrial flutter ablation. Continues to be in a normal sinus rhythm, hemodynamically stable. She did ambulate one time in the hallway, without any symptoms. Patient complains of back discomfort and was started on baclofen last evening. We will plan to send her home with prescription for this as well. She states she has been cleared for discharge after 6 PM today. Patient will increase ambulation in the hallway anticipate discharge home later. INR today is 3.1. Patient will have her recheck her INR in the office next week., Discharge diagnoses: 1. Atrial fibrillation versus atrial flutter with rapid ventricular response, typical in a patient with paroxysmal atrial fibrillation 2. Moderate to severe mitral regurgitation. Moderate to severe degree of mitral valve prolapse with normal systolic function. 3. Coagulopathy with an elevated INR of 4 on admission 4. History of rheumatoid arthritis. 5. History of GERD. 6. Vitamin D deficiency. Discharge plan: Return home Impression and plan of care have been directed as dictated by the signing physician. Juliette Terrazas nurse practitioner acting as scribe for signing physician. Patient Condition at Discharge: Good Plan - Discharge Summary Discharge Rx Participant: No New Discharge Prescriptions: New Warfarin [Coumadin] 3 mg PO DAILY #90 tab Metoprolol Succinate (ER) [Toprol XL] 25 mg PO DAILY #90 tab Baclofen [Lioresal] 10 mg PO TID PRN #90 tab PRN Reason: Spasms Continue Cholecalciferol [Vitamin D3 (25 Mcg = 1000 Iu)] 1,000 units PO DAILY Pantoprazole Sodium [Protonix] 40 mg PO DAILY PRN PRN Reason: Heartburn inFLIXimab [Remicade] 300 mg IVPB Q42D Calcium Carbonate [Calcium] 600 mg PO DAILY Cider Vinegar [Apple Cider Vinegar] 300 mg PO DAILY predniSONE See Taper PO DIRECTED Abaloparatide [Tymlos] 1.56 ml INJ DAILY Discontinued Warfarin [Coumadin] 5 mg PO MOWESA Flecainide [Tambocor] 50 mg PO BID Metoprolol Succinate (ER) [Toprol Xl] 50 mg PO DAILY Warfarin [Coumadin] 2.5 mg PO SUTUTHFR Propafenone [Rythmol] 225 mg PO BID Discharge Medication List Cholecalciferol [Vitamin D3 (25 Mcg = 1000 Iu)] 1,000 units PO DAILY 02/23/14 [History] Pantoprazole Sodium [Protonix] 40 mg PO DAILY PRN 06/29/14 [History] inFLIXimab [Remicade] 300 mg IVPB Q42D 08/26/18 [History] Abaloparatide [Tymlos] 1.56 ml INJ DAILY 02/15/19 [History] Calcium Carbonate [Calcium] 600 mg PO DAILY 02/15/19 [History] Cider Vinegar [Apple Cider Vinegar] 300 mg PO DAILY 02/15/19 [History] predniSONE See Taper PO DIRECTED 02/15/19 [History] Metoprolol Succinate (ER) [Toprol XL] 25 mg PO DAILY #90 tab 02/22/19 [Rx] Warfarin [Coumadin] 3 mg PO DAILY #90 tab 02/22/19 [Rx] Baclofen [Lioresal] 10 mg PO TID PRN #90 tab 02/23/19 [Rx] Follow up Appointment(s)/Referral(s): Yosef Rodriguez MD [STAFF PHYSICIAN] - 05/26/19 1:45 pm (With Annabella ABBOTT) Les Esteban MD [Primary Care Provider] - 1 Week (Office will call with follow up appointment.) Dinah Loya MD [STAFF PHYSICIAN] - 03/08/19 3:15 pm (Follow-up with Dr. Loya within 1-2 weeks Follow-up with Dr. aGmez in 3 months) Ambulatory/Diagnostic Orders: Prothrombin Time INR [LAB.AMB] Time Frame: 1 Week, Location: None Selected Patient Instructions/Handouts: A-fib (Atrial Fibrillation) (DC), Cardiac Ablati on (DC) Activity/Diet/Wound Care/Special Instructions: Post EP study - Ablation instructions 1. Keep access sites dry for 2 days. 2. No heavy lifting or straining for 2 days. 3. Avoid bending the hips repeatedly for 2 days. 4. You may go up and down stairs slowly Call if the following is noted 1. Bleeding, increasing swelling or pain at the access sites. 2. Increasing chest discomfort, especially upon taking a deep breath. 3. Increasing shortness of breath, at rest or with exertion. 4. Undue cough / phlegm 5. Difficulty or pain while swallowing. 6. Pain or change in color in the extremities. 7. Fever, chills, rigors. 8. Increasing headache or neurologic symptoms. 9. Dizziness, fainting, palpitations Stop propafenone\Rythmol Stop flecainide Reduce metoprolol succinate to 25 mg by mouth daily Warfarin dose is being changed to 3 mg by mouth daily [facility] Discharge Disposition: HOME SELF-CARE
[2019-02-23 17:46] VITALS: BP 130/65; PULSE 90
[2019-02-24] MEDS ORDERED: WARFARIN 3 MG TAB PO SCH (18:00)
== END 2019-02-23 17:52 | disposition home or self-care (01) | DRG 274 ==
LOC: 3SCARD 13:22
PROVIDERS: ADMIT Internal Medicine Geriatric Medicine; ATTEND Internal Medicine Geriatric Medicine
PROC: 02583ZZ Destruction of Conduction Mechanism, Percutaneous Approach (ICD-10-PCS; principal; 2019-02-15)
PROC: 4A0234Z Measurement of Cardiac Electrical Activity, Percutaneous Approach (ICD-10-PCS; 2019-02-15)
PROC: 02K83ZZ Map Conduction Mechanism, Percutaneous Approach (ICD-10-PCS; 2019-02-15)
PROC: 4A023FZ Measurement of Cardiac Rhythm, Percutaneous Approach (ICD-10-PCS; 2019-02-15)
DX: I48.0 Paroxysmal atrial fibrillation (principal); M06.9 Rheumatoid arthritis, unspecified; E78.5 Hyperlipidemia, unspecified; I34.0 Nonrheumatic mitral (valve) insufficiency; Z96.1 Presence of intraocular lens; R79.1 Abnormal coagulation profile; E66.9 Obesity, unspecified; E55.9 Vitamin D deficiency, unspecified; I47.1 Supraventricular tachycardia; K21.9 Gastro-esophageal reflux disease without esophagitis; I48.3 Typical atrial flutter; J47.9 Bronchiectasis, uncomplicated; M81.0 Age-related osteoporosis without current pathological fracture; Z68.28 Body mass index [BMI] 28.0-28.9, adult; I45.10 Unspecified right bundle-branch block; Z98.42 Cataract extraction status, left eye; Z98.41 Cataract extraction status, right eye; Z87.891 Personal history of nicotine dependence; Z79.01 Long term (current) use of anticoagulants; Z79.52 Long term (current) use of systemic steroids; Z79.899 Other long term (current) drug therapy; Z82.0 Family history of epilepsy and other diseases of the nervous system; Z82.49 Family history of ischemic heart disease and other diseases of the circulatory system; Z83.3 Family history of diabetes mellitus
CPT/HCPCS: 71046; 80053; 84443; 85025; 85027; 85347; 85610; 93613; 93623; 93656; 93657; 93662

== ENCOUNTER → 2019-03-24 | Outpatient (CLI) | payer MEDICARE ==
[~2019-03-24] MED LIST changes: +ACETAMINOPHEN TAB 325 MG TAB PO NR; -DEXAMETHASONE SOD PHOSPHATE 10 MG/ML 1 ML VIAL IV ONE; -HYDROmorphone 0.5 MG/0.5 ML SYRINGE IVP PRN; -LIDOCAINE 1% 20 ML VIAL (10MG/ML) FOR IV START INTRADERMA PRN; -MIDAZOLAM 2 MG/2 ML VIAL IV PRN; -SCOPOLAMINE 1.5MG/72HR PATCH TRANSDERM ONE; +SODIUM CHLORIDE 0.9% 500 ML 500 ML in EMPTY BAG 1 BAG IV PRN; -ceFAZolin IN SWFI 2 GM/20 ML SYRINGE IVP ONE; +diphenhydrAMINE 25 MG CAP PO NR; +diphenhydrAMINE 50 MG/ML 1 ML VIAL IVP NR
[2019-03-24 13:19] LABS: Basophils # (A) 0.1 k/uL (0-0.2); Basophils % (A) 1 %; Eosinophils # (A) 0.5 k/uL (0-0.7); Eosinophils % (A) 5 %; HCT 37.5 % (34.0-46.0); HGB 12.1 gm/dL (11.4-16.0); Lymphocytes # (A) 1.9 k/uL (1.0-4.8); Lymphocytes % (A) 18 %; MCH 28.8 pg (25.0-35.0); MCHC 32.3 g/dL (31.0-37.0); MCV 89.3 fL (80.0-100.0); Monocytes # (A) 0.7 k/uL (0-1.0); Monocytes % (A) 6 %; Neutrophils # (A) 7.4 k/uL (1.3-7.7); Neutrophils % (A) 69 %; Platelet Count 275 k/uL (150-450); RDW 15.1 % (11.5-15.5); WBC 10.7 k/uL (3.8-10.6)
[2019-03-24 13:25] VITALS: RESP 16
[2019-03-24 13:27] LABS: Albumin 4.4 g/dL (3.5-5.0); Bilirubin, Delta 0.1 mg/dL (0.0-0.2); Bilirubin,Unconjugated 0.4 mg/dL (0.0-1.1); Calcium 10.1 mg/dL (8.4-10.2); Potassium 4.4 mmol/L (3.5-5.1); Total Bilirubin 0.5 mg/dL (0.2-1.3)
[2019-03-24 14:21] VITALS: BP 124/76; PULSE 91
[2019-03-24 15:23] LABS: Erythrocyte Sedimentation Rate 58 mm/hr (0-20)
[2019-03-24 15:35] LABS: Appearance,Urine Clear (Clear); Bilirubin,Urine Negative (Negative); Blood,Urine Negative (Negative); Color,Urine Yellow; Glucose,Urine (UA) Negative (Negative); Ketones,Urine Negative (Negative); Leukocyte Esterase,Urine Negative (Negative); Nitrite,Urine Negative (Negative); Protein,Urine Negative (Negative); Specific Gravity,Urine 1.013 (1.001-1.035); Urobilinogen,Urine <2.0 mg/dL (<2.0)
== END | disposition home or self-care (01) ==
LOC: PROCWHC3 12:17
PROVIDERS: ATTEND Internal Medicine Rheumatology
DX: M06.89 Other specified rheumatoid arthritis, multiple sites (principal)
CPT/HCPCS: 80053; 85652; 82248; 85025; 81003; 96413; 96415; 36415; J1745

== ENCOUNTER 2019-06-23 14:59 | Emergency (ER) | payer MEDICARE ==
[2019-06-23 15:03] VITALS: RESP 18; TEMP 98
[2019-06-23] MEDS ORDERED: DILTIAZEM DRIP BOLUS FROM BAG 1 MG SOLN IV ONE (15:40)
[2019-06-23] MEDS ORDERED: SODIUM CHLORIDE 0.9% 1,000 ML IV STA (15:40)
[2019-06-23] MEDS ORDERED: DILTIAZEM 125 MG in SODIUM CHLORIDE 0.9% 100 ML IV SCH (15:45)
[2019-06-23 15:59] LABS: Basophils # (A) 0.1 k/uL (0-0.2); Basophils % (A) 1 %; Eosinophils # (A) 0.4 k/uL (0-0.7); Eosinophils % (A) 4 %; HCT 36.9 % (34.0-46.0); HGB 12.5 gm/dL (11.4-16.0); Lymphocytes # (A) 2.5 k/uL (1.0-4.8); Lymphocytes % (A) 27 %; MCH 29.9 pg (25.0-35.0); MCHC 33.8 g/dL (31.0-37.0); MCV 88.5 fL (80.0-100.0); Mean Platelet Volume 7.2; Monocytes # (A) 0.5 k/uL (0-1.0); Monocytes % (A) 6 %; Neutrophils # (A) 5.5 k/uL (1.3-7.7); Neutrophils % (A) 60 %; Platelet Count 232 k/uL (150-450); RBC 4.18 m/uL (3.80-5.40); RDW 13.8 % (11.5-15.5); WBC 9.1 k/uL (3.8-10.6)
[2019-06-23 16:08] LABS: ALT 20 U/L (9-52); AST 33 U/L (14-36); African American GFR (CKD) >90 (>60 ml/min/1.73 sqM); Albumin 4.1 g/dL (3.5-5.0); Alkaline Phosphatase 74 U/L (38-126); Anion Gap 14 mmol/L; Blood Urea Nitrogen 20 mg/dL (7-17); Calcium 9.9 mg/dL (8.4-10.2); Carbon Dioxide 21 mmol/L (22-30); Chloride 103 mmol/L (98-107); Glucose 116 mg/dL (74-99); Magnesium 1.6 mg/dL (1.6-2.3); Sodium 138 mmol/L (137-145); Total Bilirubin 0.4 mg/dL (0.2-1.3); Total Protein 7.7 g/dL (6.3-8.2)
[2019-06-23 16:11] LABS: INR 1.5 (<1.2); Partial Thromboplastin Time 29.1 sec (22.0-30.0); Prothrombin Time 14.8 sec (9.0-12.0)
[2019-06-23] MEDS ORDERED: WARFARIN 5 MG TAB PO STA (16:44)
--- NOTE | 2019-06-23 16:48 | ED ---
Arrhythmia/Palpitations HPI - General Chief Complaint: Arrhythmia/Palpitations Stated Complaint: AFIB, SOB Time Seen by Provider: 06/23/19 15:24 Source: patient Mode of arrival: ambulatory Limitations: no limitations - History of Present Illness Initial Comments: Patient presents to the emerge department with a rapid heart rate. She has a history of intermittent atrial fibrillation with rapid ventricular response. She states this has happened several times in the last few days. She has not sought medical care because she felt like her symptoms resolved on their own. Today her symptoms are not resolving. She has no chest pain or pressure. She has no belly or back pain. She has no nausea or vomiting. She has no diaphoresis. She has no lightheadedness or dizziness. - Related Data Home Medications Medication Instructions Recorded Confirmed Cholecalciferol [Vitamin D3 (25 5,000 units PO DAILY 02/23/14 06/23/19 Mcg = 1000 Iu)] Pantoprazole Sodium [Protonix] 40 mg PO DAILY 06/29/14 06/23/19 inFLIXimab [Remicade] 300 mg IVPB Q42D 08/26/18 06/23/19 Abaloparatide [Tymlos] 1.56 ml INJ DAILY 02/15/19 06/23/19 Flecainide [Tambocor] 50 mg PO BID 03/24/19 06/23/19 Metoprolol Succinate (ER) [Toprol 25 mg PO DAILY 03/24/19 06/23/19 XL] Multivitamins, Thera [Multivitamin 1 tab PO DAILY 06/23/19 06/23/19 (formulary)] Allergies Allergy/AdvReac Type Severity Reaction Status Date / Time No Known Allergies Allergy Verified 06/23/19 16:12 Review of Systems ROS Statement: Those systems with pertinent positive or pertinent negative responses have been documented in the HPI. ROS Other: All systems not noted in ROS Statement are negative. Past Medical History Past Medical History: Atrial Fibrillation, GERD/Reflux, Hyperlipidemia, Rheumato id Arthritis (RA) Additional Past Medical History / Comment(s): Compression fracture of L4 and L3 recently treated with kyphoplasty. Compression fracture L2 which is being tr eated conservatively compression fx L3-sx done History of Any Multi-Drug Resistant Organisms: None Reported Past Surgical History: Back Surgery, Orthopedic Surgery, Tonsillectomy Additional Past Surgical History / Comment(s): CATARATS LENS IMPLANTS, RT FOOT REMOVED 3 NODULES, right foot bone removed 05/18/18. Colonoscopy 2016(2nd) to repeat in 5 years. Back surgery 07/15/2018 and 07/22/2018. Past Anesthesia/Blood Transfusion Reactions: No Reported Reaction Additional Past Anesthesia/Blood Transfusion Reaction / Comment(s): VERTIGO ON A CRUISE Past Psychological History: No Psychological Hx Reported Smoking Status: Former smoker Past Alcohol Use History: None Reported Past Drug Use History: None Reported - Past Family History Father Family Medical History: Cancer, Neurologic Disorder Additional Family Medical History / Comment(s): ARRYTHMIA, CORNEAL IMPLANTS, LT EYE BLIND , PARKINSONS, FATHER HAS Mother Family Medical History: Cancer, Coronary Artery Disease (CAD), Diabetes Mellitus, Myocardial Infarction ([place]) Additional Family Medical History / Comment(s): CATARACTS, DETATCHED RETINA, GLAUCOMA, MACULAR DEGENERATION, STENTS, BOWEL RESECTION FOR DIVERTICULITIS, KATINA KNEE REPLACEMENT. recently Brother(s) Family Medical History: CVA/TIA Additional Family Medical History / Comment(s): stroke at 65 Sister(s) Family Medical History: No Reported History General Exam Limitations: no limitations General appearance: alert, in no apparent distress Head exam: Present: atraumatic, normocephalic, normal inspection Eye exam: Present: normal appearance, PERRL, EOMI. Absent: scleral icterus, conjunctival injection, periorbital swelling ENT exam: Present: normal exam, mucous membranes moist Neck exam: Present: normal inspection. Absent: tenderness, meningismus, lymphadenopathy Respiratory exam: Present: normal lung sounds bilaterally. Absent: respiratory distress, wheezes, rales, rhonchi, stridor Cardiovascular Exam: Present: tachycardia, irregular rhythm, normal heart sounds. Absent: systolic murmur, diastolic murmur, rubs, gallop, clicks GI/Abdominal exam: Present: soft, normal bowel sounds. Absent: distended, tenderness, guarding, rebound, rigid Extremities exam: Present: normal inspection, full ROM, normal capillary refill. Absent: tenderness, pedal edema, joint swelling, calf tenderness Back exam: Present: normal inspection Neurological exam: Present: alert, oriented X3, CN II-XII intact Psychiatric exam: Present: normal affect, normal mood Skin exam: Present: warm, dry, intact, normal color. Absent: rash Course Vital Signs 06/23/19 06/23/19 06/23/19 15:01 15:26 15:59 Temperature 98 F Pulse Rate 156 H 149 H 89 Pulse Rate [ 149 H Java Analyst ] Respiratory 18 18 18 Rate Blood Pressure 120/69 99/70 O2 Sat by Pulse 97 97 97 Oximetry EKG Findings - EKG Comments: EKG Findings:: The first twelve-lead EKG shows ventricular rate of 157 bpm, there are no P waves, there is no ST elevation or depression, interpreted by me as atrial flutter relation with rapid ventricular response. I obtained a subsequent EKG, which shows ventricular rate 85 bpm, normal [place] interval and Jonathan complexes, no ST elevation or depression, interpreted by me as normal sinus rhythm. Medical Decision Making - Medical Decision Making Patient presented with atrial fibrillation with rapid ventricular response. I gave her a dose of IV Cardizem and initially started her on a Cardizem drip. Her laboratory studies are unremarkable. Patient spontaneously converted to sinus rhythm. She has remained in that rhythm for an extended period of observation in the emerge arm. She doesn't want to be admitted. Her INR is a little low, so I gave her an extra dose of Coumadin. 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 - Lab Data Result diagrams: 06/23/19 15:24 06/23/19 15:24 Lab Results 06/23/19 06/23/19 06/23/19 Range/Units 15:24 15:24 15:24 WBC 9.1 (3.8-10.6) k/uL RBC 4.18 (3.80-5.40) m/uL Hgb 12.5 (11.4-16.0) gm/dL Hct 36.9 (34.0-46.0) % MCV 88.5 (80.0-100.0) fL MCH 29.9 (25.0-35.0) pg MCHC 33.8 (31.0-37.0) g/dL RDW 13.8 (11.5-15.5) % Plt Count 232 (150-450) k/uL Neutrophils % 60 % Lymphocytes % 27 % Monocytes % 6 % Eosinophils % 4 % Basophils % 1 % Neutrophils # 5.5 (1.3-7.7) k/uL Lymphocytes # 2.5 (1.0-4.8) k/uL Monocytes # 0.5 (0-1.0) k/uL Eosinophils # 0.4 (0-0.7) k/uL Basophils # 0.1 (0-0.2) k/uL PT 14.8 H (9.0-12.0) sec INR 1.5 H (<1.2) APTT 29.1 (22.0-30.0) sec Sodium 138 (137-145) mmol/L Potassium 4.0 (3.5-5.1) mmol/L Chloride 103 (98-107) mmol/L Carbon Dioxide 21 L (22-30) mmol/L Anion Gap 14 mmol/L BUN 20 H (7-17) mg/dL Creatinine 0.72 (0.52-1.04) mg/dL Est GFR (CKD-EPI)AfAm >90 (>60 ml/min/1.73 sqM) Est GFR (CKD-EPI)NonAf 86 (>60 ml/min/1.73 sqM) Glucose 116 H (74-99) mg/dL Calcium 9.9 (8.4-10.2) mg/dL Magnesium 1.6 (1.6-2.3) mg/dL Total Bilirubin 0.4 (0.2-1.3) mg/dL AST 33 (14-36) U/L ALT 20 (9-52) U/L Alkaline Phosphatase 74 (38-126) U/L Troponin I (0.000-0.034) ng/mL Total Protein 7.7 (6.3-8.2) g/dL Albumin 4.1 (3.5-5.0) g/dL 06/23/19 Range/Units 15:24 WBC (3.8-10.6) k/uL RBC (3.80-5.40) m/uL Hgb (11.4-16.0) gm/dL Hct (34.0-46.0) % MCV (80.0-100.0) fL MCH (25.0-35.0) pg MCHC (31.0-37.0) g/dL RDW (11.5-15.5) % Plt Count (150-450) k/uL Neutrophils % % Lymphocytes % % Monocytes % % Eosinophils % % Basophils % % Neutrophils # (1.3-7.7) k/uL Lymphocytes # (1.0-4.8) k/uL Monocytes # (0-1.0) k/uL Eosinophils # (0-0.7) k/uL Basophils # (0-0.2) k/uL PT (9.0-12.0) sec INR (<1.2) APTT (22.0-30.0) sec Sodium (137-145) mmol/L Potassium (3.5-5.1) mmol/L Chloride (98-107) mmol/L Carbon Dioxide (22-30) mmol/L Anion Gap mmol/L BUN (7-17) mg/dL Creatinine (0.52-1.04) mg/dL Est GFR (CKD-EPI)AfAm (>60 ml/min/1.73 sqM) Est GFR (CKD-EPI)NonAf (>60 ml/min/1.73 sqM) Glucose (74-99) mg/dL Calcium (8.4-10.2) mg/dL Magnesium (1.6-2.3) mg/dL Total Bilirubin (0.2-1.3) mg/dL AST (14-36) U/L ALT (9-52) U/L Alkaline Phosphatase (38-126) U/L Troponin I <0.012 (0.000-0.034) ng/mL Total Protein (6.3-8.2) g/dL Albumin (3.5-5.0) g/dL Disposition Clinical Impression: A-fib Disposition: HOME SELF-CARE Condition: Good Instructions (If sedation given, give patient instructions): Heart Palpitations (ED) Is patient prescribed a controlled substance at d/c from ED?: No Referrals: Les Esteban MD [Primary Care Provider] - 1-2 days
--- NOTE | 2019-06-23 16:53 | XR ---
EXAMINATION TYPE: XR chest 2V DATE OF EXAM: 06/23/2019 COMPARISON: 02/15/2019 HISTORY: Short of breath TECHNIQUE: Frontal and lateral views of the chest are obtained. FINDINGS: Heart is normal. Lungs are clear of infiltrate. Thoracic aorta is atheromatous. There is n o pleural effusion. There are no hilar masses. There are chest leads. There is osteopenia. There is 5 0% wedging of T8 vertebra. There is also compression deformity of lower thoracic vertebra. IMPRESSION: No active cardiopulmonary disease. Multiple osteoporotic type thoracic compression fract ures unchanged.
[2019-06-23 17:03] VITALS: BP 112/76; PULSE 85
== END 2019-06-23 17:22 | disposition home or self-care (01) ==
LOC: EC 14:59
DX: I48.91 Unspecified atrial fibrillation (principal); R79.1 Abnormal coagulation profile; K21.9 Gastro-esophageal reflux disease without esophagitis; M06.9 Rheumatoid arthritis, unspecified; Z87.891 Personal history of nicotine dependence; Z79.899 Other long term (current) drug therapy; Z82.49 Family history of ischemic heart disease and other diseases of the circulatory system; Z53.8 Procedure and treatment not carried out for other reasons
CPT/HCPCS: 36415; 71046; 80053; 83735; 84484; 85025; 85610; 85730; 93005; 96360; 99285

== ENCOUNTER → 2019-07-20 | Outpatient (CLI) | payer MEDICARE ==
[2019-07-20 14:20] VITALS: BP 133/79; PULSE 80; RESP 18; TEMP 97.8; BMI 26.6
--- NOTE | 2019-07-20 15:06 | P.HPOB ---
History of Present Illness H&P Date: 07/20/19 Chief Complaint: The patient is here for her routine gynecologic exam and ma mmogram. This is a 69-year-old G0 with an LMP of 2005. The patient is without gynecologic complaints and denies any postmenopausal bleeding. The patient had multiple vertebral fractures in 2018 and was started on Tymlos injections for osteoporosis by her casino enforcement agent. Review of Systems She has lost about 5 pounds over the past year and she has done this with dietar y changes. She denies respiratory, cardiac and G.I. problems. She denies maltreatment or problems with falling. : she denies any significant problems with urinary leakage. Past Medical History Past Medical History: Atrial Fibrillation, GERD/Reflux, Hyperlipidemia, Rheumatoid Arthritis (RA) Additional Past Medical History / Comment(s): Compression fracture of L4 and L3 recently treated with kyphoplasty. Compression fracture L2 which is being treated conservatively compression fx L3-sx done. 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 History of Any Multi-Drug Resistant Organisms: None Reported Past Surgical History: Back Surgery, Cardiac Ablation, Orthopedic Surgery, T onsillectomy Additional Past Surgical History / Comment(s): CATARATS LENS IMPLANTS, RT FOOT REMOVED 3 NODULES, right foot bone removed 05/18/18. Colonoscopy 2016(2nd) to repeat in 5 years. Back surgery 07/15/2018 and 07/22/2018. Cardiac ablation surgery. Past Anesthesia/Blood Transfusion Reactions: No Reported Reaction Additional Past Anesthesia/Blood Transfusion Reaction / Comment(s): VERTIGO ON A CRUISE Past Psychological History: No Psychological Hx Reported Smoking Status: Former smoker Past Alcohol Use History: None Reported Additional Past Alcohol Use History / Comment(s): STARTED SMOKING AT AGE 19 TO AGE 29 SMOKED 1 PACK PER MONTH. Past Drug Use History: None Reported Additional History: The patient is retired and previously worked for [employer]. She is in a homosexual relationship and has been with her partner since 2010 and lives with her. - Past Family History Father Family Medical History: Cancer, Neurologic Disorder Additional Family Medical History / Comment(s): Prostate cancer. ARRYTHMIA, CORNEAL IMPLANTS, LT EYE BLIND , PARKINSONS, FATHER HAS Mother Family Medical History: Cancer, Coronary Artery Disease (CAD), Diabetes Mellitus, Myocardial Infarction ([place]) Additional Family Medical History / Comment(s): Uterine cancer. CATARACTS, DETATCHED RETINA, GLAUCOMA, MACULAR DEGENERATION, STENTS, BOWEL RESECTION FOR DIVERTICULITIS, KATINA KNEE REPLACEMENT. recently Brother(s) Family Medical History: CVA/TIA Additional Family Medical History / Comment(s): stroke at 65 Sister(s) Family Medical History: No Reported History Medications and Allergies Home Medications Medication Instructions Recorded Confirmed Type Cholecalciferol [Vitamin D3 (25 5,000 units PO DAILY 02/23/14 07/20/19 History Mcg = 1000 Iu)] Pantoprazole Sodium [Protonix] 40 mg PO DAILY 06/29/14 07/20/19 History Abaloparatide [Tymlos] 1.56 ml INJ DAILY 02/15/19 07/20/19 History Flecainide [Tambocor] 50 mg PO BID 03/24/19 07/20/19 History Metoprolol Succinate (ER) [Toprol 50 mg PO DAILY 03/24/19 07/20/19 History XL] Multivitamins, Thera [Multivitamin 1 tab PO DAILY 06/23/19 07/20/19 History (formulary)] Cider Vinegar [Apple Cider Vinegar] 300 mg PO DAILY 07/20/19 07/20/19 History Methotrexate Sodium [Methotrexate] 12.5 mg PO DAILY 07/20/19 07/20/19 History Simponi 1 100ml.bag IV QMONTH 07/20/19 07/20/19 History Allergies Allergy/AdvReac Type Severity Reaction Status Date / Time No Known Allergies Allergy Verified 07/20/19 14:20 Exam Vital Signs Temp Pulse Resp BP Pulse Ox 07/20/19 14:14 97.8 F 80 18 133/79 97 Intake and Output 07/19/19 07/20/19 07/20/19 22:59 06:59 14:59 Other: Weight 66.224 kg Height 5 feet 2 inches, weight 146 pounds, BMI 26.7. This is a well-developed well-nourished white female who is alert and oriented times 3 in no acute distress. HEENT: Within normal limits. NECK: Supple without mass or thyromegaly. CHEST AND LUNGS: Clear to auscultation. HEART: Regular rate and rhythm. BREASTS: Are without mass or discharge. AXILLARY EXAM: Negative for adenopathy. BACK: Negative for CVA tenderness. ABDOMEN: Soft, nontender, without palpable masses. PELVIC EXAM: Normal external genitalia with moderate atrophy. Cervix and vagina appear normal with moderate atrophy. There is no unusual discharge. There is no evidence of prolapse. The uterus is midposition, nongravid size and nontender. There are no palpable adnexal masses or tenderness. RECTAL EXAM: Though vaginal exam is negative for mass or tenderness and is negative for occult blood. EXTREMITIES: Nontender. IMPRESSION: 1. 69-year-old menopausal female with normal gynecologic exam. 2. History of osteoporosis on Tymlos (PTH) as prescribed by her casino enforcement agent PLAN: 1. Pap smear was performed. 2. Self breast awareness was discussed with the patient. 3. Screening mammogram will be done today. 4. Osteoporosis management was discussed. I have stressed the importance of adequate calcium, vitamin D and regular exercise. Recommended amounts of calcium and vitamin D were also discussed. Prescription treatment and testing will be done through her casino enforcement agent as she has done in the past. 5. She did receive her flu shot this fall. 6. The patient was advised to return in 1-2 years for her well woman examination.
--- NOTE | 2019-07-21 09:09 | MM ---
Reason for exam: screening (asymptomatic). Last mammogram was performed 1 year and 1 month ago. History: Patient is postmenopausal and is nulliparous. Benign excisional biopsy of the left breast, 2016. Physical Findings: A clinical breast exam by your physician is recommended on an annual basis and results should be correlated with mammographic findings. MG 3D Screening Mammo W/Cad Bilateral CC and MLO view(s) were taken. Prior study comparison: June 16, 2018, bilateral MG 3d screening mammo w/cad. May 27, 2017, bilateral MG 3d screening mammo w/cad. There are scattered fibroglandular densities. Benign appearing bilateral calcifications. No suspicious abnormality. Left biopsy marker noted. No significant changes when compared with prior studies. ASSESSMENT: Benign, BI-RAD 2 RECOMMENDATION: Routine screening mammogram of both breasts in 1 year.
== END | disposition home or self-care (01) ==
LOC: WWCWWP 14:02
PROVIDERS: ATTEND Obstetrics & Gynecology
DX: Z12.31 Encounter for screening mammogram for malignant neoplasm of breast (principal)
CPT/HCPCS: 77063; 77067

== ENCOUNTER → 2019-08-18 | Day surgery (SDC) | payer MEDICARE ==
[2019-08-16 14:37] VITALS: BMI 25.0
[~2019-08-18] MED LIST changes: -ACETAMINOPHEN TAB 325 MG TAB PO NR; +MIDAZOLAM 2 MG/2 ML VIAL IVP ONE; +SODIUM CHLORIDE 0.9% 1,000 ML IV SCH; +SODIUM CHLORIDE 0.9% 500 ML 500 ML IV ONE; -SODIUM CHLORIDE 0.9% 500 ML 500 ML in EMPTY BAG 1 BAG IV PRN; -diphenhydrAMINE 25 MG CAP PO NR; -diphenhydrAMINE 50 MG/ML 1 ML VIAL IVP NR; +fentaNYL (PF) 50 MCG/ML 2 ML AMP IVP ONE; +fentaNYL (PF) 50 MCG/ML 2 ML AMP ONE
[2019-08-18 10:08] VITALS: TEMP 98.3
[2019-08-18 10:24] LABS: INR 1.4 (<1.2)
[2019-08-18] MEDS: BENZOCAINE SPRAY 1 CAN TOPICAL ONE ×2 (10:51→11:04)
[2019-08-18 11:15] VITALS: RESP 16
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
[2019-08-18 13:23] VITALS: BP 114/60; PULSE 66
== END ==
LOC: CATHCVL 09:40
PROVIDERS: ATTEND Internal Medicine Cardiovascular Disease
DX: I34.1 Nonrheumatic mitral (valve) prolapse (principal); I34.0 Nonrheumatic mitral (valve) insufficiency; I48.0 Paroxysmal atrial fibrillation; I48.3 Typical atrial flutter; E78.2 Mixed hyperlipidemia; M06.9 Rheumatoid arthritis, unspecified; Z79.01 Long term (current) use of anticoagulants; Z79.899 Other long term (current) drug therapy
CPT/HCPCS: 93312; 93320; 93325; 85610; J2250; J3010

== ENCOUNTER → 2019-08-22 | Outpatient (CLI) | payer MEDICARE ==
[2019-08-22 16:03] LABS: Prothrombin Time 10.5 sec (9.0-12.0)
== END | disposition home or self-care (01) ==
LOC: RADXRMAIN 15:01
PROVIDERS: ATTEND Physical Medicine & Rehabilitation
DX: M47.817 Spondylosis without myelopathy or radiculopathy, lumbosacral region (principal); M54.2 Cervicalgia; M47.812 Spondylosis without myelopathy or radiculopathy, cervical region; R20.2 Paresthesia of skin
CPT/HCPCS: 85610

== ENCOUNTER 2019-10-10 13:30 | Inpatient (IN) | payer MEDICARE ==
[2019-10-10 13:58] LABS: Glucose,Whole Blood 100 mg/dL (75-99)
--- NOTE | 2019-10-10 14:27 | ED ---
Neuro HPI <Kris More N - Last Filed: 10/10/19 20:39> - General Source: patient, RN notes reviewed Mode of arrival: ambulatory Limitations: no limitations - History of Present Illness Is the patient presenting with stroke symptoms?: No <Kris Morgan - Last Filed: 10/11/19 13:13> - General Chief Complaint: Neuro Symptoms/Deficit Stated Complaint: Dizziness Time Seen by Provider: 10/10/19 13:54 - History of Present Illness Initial Comments: This is a 69-year-old female history of A. fib with ablation history of mitral valve regurg was acting scheduled for a valve replacement in 2 weeks who presents with complaints of onset of trouble with speech and garbled words lasting perhaps up to 45 minutes. Patient states she has totally resolve now she is able to speak think she had no focal deficits did have some dizziness. She denies any other complaints she had no prior history of strokes is a family history of stroke brother that had with the age of 62/63. Her blood sugar was 176 with this is after eating an orange and someone street when the symptoms started she is not a known diabetic or hypoglycemic person no recent fevers chills nausea vomiting sweats or other symptoms he states she is feels anxious at this time (EddieKris) - Related Data Home Medications: Home Medications Medication Instructions Recorded Confirmed Cholecalciferol [Vitamin D3 (25 5,000 units PO DAILY 02/23/14 10/11/19 Mcg = 1000 Iu)] Pantoprazole Sodium [Protonix] 40 mg PO DAILY 06/29/14 10/11/19 Abaloparatide [Tymlos] 1.56 ml INJ DAILY 02/15/19 10/11/19 Flecainide [Tambocor] 75 mg PO BID 03/24/19 10/11/19 Metoprolol Succinate (ER) [Toprol 50 mg PO DAILY 03/24/19 10/11/19 XL] Multivitamins, Thera [Multivitamin 1 tab PO DAILY 06/23/19 10/11/19 (formulary)] Cider Vinegar [Apple Cider Vinegar] 300 mg PO DAILY 07/20/19 10/11/19 Methotrexate Sodium [Methotrexate] 12.5 mg PO LITTLEJOHN 07/20/19 10/11/19 Simponi 300 mg IV Q2M 07/20/19 10/10/19 Warfarin [Coumadin] 7 mg PO FR 08/16/19 10/11/19 Escitalopram [Lexapro] 10 mg PO DAILY 10/11/19 10/11/19 Warfarin [Coumadin] 5 mg PO SUMOTUWETHSA 10/11/19 10/11/19 Allergies/Adverse Reactions: Allergies Allergy/AdvReac Type Severity Reaction Status Date / Time No Known Allergies Allergy Verified 10/11/19 08:04 Review of Systems ROS Other: All systems not noted in ROS Statement are negative. <Kris More - Last Filed: 10/10/19 20:39> ROS Other: All systems not noted in ROS Statement are negative. <Kris Morgan - Last Filed: 10/11/19 13:13> ROS Statement: Those systems with pertinent positive or pertinent negative responses have been documented in the HPI. General Exam Limitations: no limitations General appearance: alert, anxious Head exam: Present: atraumatic, normocephalic, normal inspection Eye exam: Present: normal appearance, PERRL, EOMI. Absent: scleral icterus, conjunctival injection, periorbital swelling ENT exam: Present: normal exam, mucous membranes moist Neck exam: Present: normal inspection, full ROM, other (No stridor JVD or bruits). Absent: tenderness, meningismus, lymphadenopathy Respiratory exam: Present: normal lung sounds bilaterally. Absent: respiratory distress, wheezes, rales, rhonchi, stridor Cardiovascular Exam: Present: regular rate, normal rhythm, normal heart sounds. Absent: systolic murmur, diastolic murmur, rubs, gallop, clicks GI/Abdominal exam: Present: soft, normal bowel sounds. Absent: distended, tenderness, guarding, rebound, rigid Extremities exam: Present: normal inspection, full ROM, normal capillary refill. Absent: tenderness, pedal edema, joint swelling, calf tenderness Back exam: Present: normal inspection Neurological exam: Present: alert, oriented X3, CN II-XII intact Psychiatric exam: Present: normal affect, normal mood Skin exam: Present: warm, dry, intact, normal color. Absent: rash <Kris Morgan - Last Filed: 10/11/19 13:13> - General Exam Comments Initial Comments: This a well-developed well-nourished awake alert oriented 3 female (Kris Morgan) Stroke MDM - Lab Data Result diagrams: 10/10/19 14:33 10/10/19 14:33 <Kris More - Last Filed: 10/10/19 20:39> - Lab Data Result diagrams: 10/11/19 05:52 10/11/19 05:52 - NIH Stroke Scale 1a. Level of Consciousness: (0) alert 1b. LOC Questions: (0) answers correctly 1c. LOC Commands: (0) performs tasks correctly 2. Best Gaze: (0) normal 3. Visual: (0) no visual loss 4. Facial Palsy: (0) normal symmetrical movement 5a. Motor Arm Left: (0) no drift 5b. Motor Arm Right: (0) no drift 6a. Motor Leg Left: (0) no drift 6b. Motor Leg Right: (0) no drift 7. Limb Ataxia: (0) absent 8. Sensory: (0) normal 9. Best Language: (0) no aphasia 10. Dysarthria: (0) normal 11. Extinction/Inattention: (0) no abnormality - EKG Data -: EKG Interpreted by Oh EKG shows normal: [place] [address] QRS 152 QT since QTC 470/[address]-T wave changes this is compared with an EKG dated 06/23/19 showing similar configuration) <Kris Morgan - Last Filed: 10/11/19 13:13> - Lab Data Lab Results 10/10/19 10/10/19 10/10/19 Range/Units 13:55 14:33 14:33 WBC 7.9 (3.8-10.6) k/uL RBC 3.93 (3.80-5.40) m/uL Hgb 9.0 L (11.4-16.0) gm/dL Hct 38.0 (34.0-46.0) % MCV 96.9 (80.0-100.0) fL MCH 23.0 L (25.0-35.0) pg MCHC 23.8 L (31.0-37.0) g/dL RDW 15.6 H (11.5-15.5) % Plt Count 227 (150-450) k/uL Neutrophils % 61 % Lymphocytes % 22 % Monocytes % 8 % Eosinophils % 4 % Basophils % 2 % Neutrophils # 4.8 (1.3-7.7) k/uL Lymphocytes # 1.7 (1.0-4.8) k/uL Monocytes # 0.6 (0-1.0) k/uL Eosinophils # 0.3 (0-0.7) k/uL Basophils # 0.2 (0-0.2) k/uL PT (9.0-12.0) sec INR (<1.2) APTT (22.0-30.0) sec Sodium 138 (137-145) mmol/L Potassium 4.8 (3.5-5.1) mmol/L Chloride 107 (98-107) mmol/L Carbon Dioxide 22 (22-30) mmol/L Anion Gap 9 mmol/L BUN 13 (7-17) mg/dL Creatinine 0.79 (0.52-1.04) mg/dL Est GFR (CKD-EPI)AfAm 89 (>60 ml/min/1.73 sqM) Est GFR (CKD-EPI)NonAf 77 (>60 ml/min/1.73 sqM) Glucose 86 (74-99) mg/dL POC Glucose (mg/dL) 100 H (75-99) mg/dL POC Glu Air Surveillance Operator ID Ange Luna Calcium 9.8 (8.4-10.2) mg/dL Total Bilirubin 0.7 (0.2-1.3) mg/dL AST 44 H (14-36) U/L ALT 16 (4-34) U/L Alkaline Phosphatase 68 (38-126) U/L Creatine Kinase 54 (30-135) U/L Troponin I (0.000-0.034) ng/mL Total Protein 7.3 (6.3-8.2) g/dL Albumin 3.8 (3.5-5.0) g/dL 10/10/19 10/10/19 Range/Units 14:33 14:33 WBC (3.8-10.6) k/uL RBC (3.80-5.40) m/uL Hgb (11.4-16.0) gm/dL Hct (34.0-46.0) % MCV (80.0-100.0) fL MCH (25.0-35.0) pg MCHC (31.0-37.0) g/dL RDW (11.5-15.5) % Plt Count (150-450) k/uL Neutrophils % % Lymphocytes % % Monocytes % % Eosinophils % % Basophils % % Neutrophils # (1.3-7.7) k/uL Lymphocytes # (1.0-4.8) k/uL Monocytes # (0-1.0) k/uL Eosinophils # (0-0.7) k/uL Basophils # (0-0.2) k/uL PT 16.1 H (9.0-12.0) sec INR 1.6 H (<1.2) APTT 19.7 L (22.0-30.0) sec Sodium (137-145) mmol/L Potassium (3.5-5.1) mmol/L Chloride (98-107) mmol/L Carbon Dioxide (22-30) mmol/L Anion Gap mmol/L BUN (7-17) mg/dL Creatinine (0.52-1.04) mg/dL Est GFR (CKD-EPI)AfAm (>60 ml/min/1.73 sqM) Est GFR (CKD-EPI)NonAf (>60 ml/min/1.73 sqM) Glucose (74-99) mg/dL POC Glucose (mg/dL) (75-99) mg/dL POC Glu Air Surveillance Operator ID Calcium (8.4-10.2) mg/dL Total Bilirubin (0.2-1.3) mg/dL AST (14-36) U/L ALT (4-34) U/L Alkaline Phosphatase (38-126) U/L Creatine Kinase (30-135) U/L Troponin I <0.012 (0.000-0.034) ng/mL Total Protein (6.3-8.2) g/dL Albumin (3.5-5.0) g/dL - Medical Decision Making Patient's care was signed out at shift change awaiting CT and CT angiography which was performed for an episode of expressive aphasia and slurred speech. I did reevaluate this patient and she remains asymptomatic while in the emergency department. No focal deficits. CT was performed which showed no acute intracranial hemorrhage or mass effect. CT angiography showed a 90% stenosis in the left internal carotid artery and stenosis at the bilateral carotid bifurcations. I discussed case with the admitting physician Dr. Carnes, he will accept admission with both neurology and vascular surgery on consult. Patient will be admitted for TIA/CVA evaluation. (Kris More) Past Medical History Past Medical History: Atrial Fibrillation, GERD/Reflux, Hyperlipidemia, Rheu matoid Arthritis (RA) Additional Past Medical History / Comment(s): Compression fracture of L4 and L3 recently treated with kyphoplasty. Compression fracture L2 which is being treated conservatively compression fx L3-sx done. 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 History of Any Multi-Drug Resistant Organisms: None Reported Past Surgical History: Back Surgery, Cardiac Ablation, Orthopedic Surgery, Tonsillectomy Additional Past Surgical History / Comment(s): CATARATS LENS IMPLANTS, RT FOOT REMOVED 3 NODULES, right foot bone removed 05/18/18. Colonoscopy 2016(2nd) to repeat in 5 years. Back surgery 07/15/2018 and 07/22/2018. Cardiac ablation surgery, epidural steroid injections for back pain Past Anesthesia/Blood Transfusion Reactions: No Reported Reaction Additional Past Anesthesia/Blood Transfusion Reaction / Comment(s): VERTIGO ON A CRUISE Past Psychological History: No Psychological Hx Reported Smoking Status: Former smoker Past Alcohol Use History: None Reported Past Drug Use History: None Reported - Past Family History Father Family Medical History: Cancer, Neurologic Disorder Additional Family Medical History / Comment(s): Prostate cancer. ARRYTHMIA, CORNEAL IMPLANTS, LT EYE BLIND , PARKINSONS, FATHER HAS Mother Family Medical History: Cancer, Coronary Artery Disease (CAD), Diabetes Mellitu s, Myocardial Infarction (OR) Additional Family Medical History / Comment(s): Uterine cancer. CATARACTS, DETATCHED RETINA, GLAUCOMA, MACULAR DEGENERATION, STENTS, BOWEL RESECTION FOR DIVERTICULITIS, KATINA KNEE REPLACEMENT. recently Brother(s) Family Medical History: CVA/TIA Additional Family Medical History / Comment(s): stroke at 65 Sister(s) Family Medical History: No Reported History <Kris Morgan - Last Filed: 10/11/19 13:13> Course <Kris Morgan - Last Filed: 10/11/19 13:13> Vital Signs 10/10/19 10/10/19 10/10/19 13:34 13:50 14:00 Temperature 98.2 F Pulse Rate 73 66 66 Respiratory 16 17 11 L Rate Blood Pressure 106/73 102/75 O2 Sat by Pulse 99 97 96 Oximetry 10/10/19 10/10/19 10/10/19 14:30 15:00 15:24 Temperature Pulse Rate 66 66 66 Respiratory 11 L 13 13 Rate Blood Pressure 107/83 126/69 126/69 O2 Sat by Pulse 97 Oximetry 10/10/19 10/10/19 10/10/19 15:30 16:00 16:30 Temperature Pulse Rate 63 66 Respiratory 11 L 11 L Rate Blood Pressure 110/76 117/70 O2 Sat by Pulse 62 L Oximetry 10/10/19 10/10/19 10/10/19 17:00 17:30 18:00 Temperature Pulse Rate 67 68 Respiratory 9 L 10 L Rate Blood Pressure 108/67 111/73 108/65 O2 Sat by Pulse 98 Oximetry 10/10/19 10/10/19 10/10/19 18:19 18:30 19:03 Temperature 98.2 F Pulse Rate 71 71 71 Respiratory 23 23 18 Rate Blood Pressure 108/65 108/65 116/64 O2 Sat by Pulse 97 97 97 Oximetry 10/10/19 10/10/19 10/10/19 19:15 20:15 20:54 Temperature 97.5 F L 98.3 F 98.1 F Pulse Rate 68 67 77 Respiratory 14 15 16 Rate Blood Pressure 115/74 115/67 120/78 O2 Sat by Pulse 99 99 100 Oximetry - Reevaluation(s) Reevaluation #1: 10/10/19 17:11 Patient is awake alert oriented 3 distress no further symptoms I did a long session with her and her family patient's had no bleeding she's had trouble with her INR since her Coumadin was stopped for catheterization recently. She is awaiting CAT scan. The patient's care will be endorsed to Dr. More at our shift change. (Kris Morgan) Disposition Is patient prescribed a controlled substance at d/c from ED?: No Decision to Admit Reason: Admit from EC Decision Date: 10/10/19 Decision Time: 20:42 <Kris More - Last Filed: 10/10/19 20:39> <Kris Morgan - Last Filed: 10/11/19 13:13> Clinical Impression: Transient cerebral ischemia Disposition: ADMITTED IP TO THIS HOSP Condition: Stable
[2019-10-10 14:49] LABS: Basophils # (A) 0.2 k/uL (0-0.2); Basophils % (A) 2 %; Eosinophils # (A) 0.3 k/uL (0-0.7); Eosinophils % (A) 4 %; Lymphocytes # (A) 1.7 k/uL (1.0-4.8); Lymphocytes % (A) 22 %; MCHC 23.8 g/dL (31.0-37.0); MCV 96.9 fL (80.0-100.0); Mean Platelet Volume 8.4; Monocytes # (A) 0.6 k/uL (0-1.0); Monocytes % (A) 8 %; Neutrophils # (A) 4.8 k/uL (1.3-7.7); Neutrophils % (A) 61 %; Platelet Count 227 k/uL (150-450); RBC 3.93 m/uL (3.80-5.40); RDW 15.6 % (11.5-15.5); WBC 7.9 k/uL (3.8-10.6)
[2019-10-10 14:52] LABS: Albumin 3.8 g/dL (3.5-5.0); Calcium 9.8 mg/dL (8.4-10.2); Total Bilirubin 0.7 mg/dL (0.2-1.3); Total Protein 7.3 g/dL (6.3-8.2)
[2019-10-10 14:56] LABS: Potassium 4.8 mmol/L (3.5-5.1)
[2019-10-10 15:07] LABS: INR 1.6 (<1.2); Prothrombin Time 16.1 sec (9.0-12.0)
[2019-10-10 15:08] LABS: Partial Thromboplastin Time 19.7 sec (22.0-30.0)
--- NOTE | 2019-10-10 16:16 | XR ---
EXAMINATION TYPE: XR chest 2V DATE OF EXAM: 10/10/2019 COMPARISON: 06/22/2019 HISTORY: Altered mental status TECHNIQUE: Frontal and lateral views of the chest are obtained. FINDINGS: There is no focal air space opacity, pleural effusion, or pneumothorax seen. Diffuse inter stitial prominence is chronic. The cardiac silhouette size is again upper limits of normal size. T he osseous structures are intact. Diffuse osseous demineralization. Stable mid thoracic compression d eformity. IMPRESSION: No acute cardiopulmonary process. Diffuse chronic interstitial prominence, likely relate d to background fibrosis.
--- NOTE | 2019-10-10 19:14 | CT ---
EXAMINATION TYPE: CT brain wo con for TPA DATE OF EXAM: 10/10/2019 COMPARISON: None HISTORY: weakness CT DLP: 1084.9 mGycm Automated exposure control for dose reduction was used. Ventricles have normal size. There is no mass effect nor midline shift. There is no sign of intracran ial hemorrhage. There is minimal cerebral atrophy. Calvarium is intact. IMPRESSION: Mild atrophy. No acute intracranial abnormality.
--- NOTE | 2019-10-10 19:48 | CT ---
EXAMINATION TYPE: CT angio head neck DATE OF EXAM: 10/10/2019 COMPARISON: None HISTORY: weakness CT DLP: 331 mGycm Automated exposure control for dose reduction was used. CONTRAST: Performed with IV Contrast, patient injected with 65cc mL of Isovue 370. Multiple axial sections were obtained from the aortic arch to the vertex of the brain with intravenou s contrast. There are 3-D post processed images. There is normal branching pattern of the great vessels on the aortic arch. There is atherosclerotic p laque formation on the thoracic aorta. There is bilateral arterial flow in the subclavian arteries. There is arterial flow in the common internal and external carotid arteries bilaterally. I see no sig nificant stenosis on the right side. There is bilateral arthroscopic plaque at the carotid artery bif urcations. There is subtotal occlusion of the proximal left internal carotid artery. There is estimat ed plaque of 90%. There is bilateral arterial flow in the vertebral arteries. There is no evidence of carotid or vertebral artery aneurysm or dissection. There is arterial flow in the anterior middle and posterior cerebral arteries. There is arterial flow in the vertebrobasilar artery system. I see no mass effect. There is no evidence of intracranial ane urysm or neovascularity. There is normal contrast opacification of the venous sinuses. IMPRESSION: There is probably more than 90% stenosis at the origin of the left internal carotid artery. Bilateral plaque formation at the carotid artery bifurcations. Negative CT angiogram of the brain.
[2019-10-10] MEDS ORDERED: SODIUM CHLORIDE 0.9% 1,000 ML IV SCH (20:45)
[2019-10-10] MEDS ORDERED: METHOTREXATE SODIUM 2.5 MG TAB PO SCH (23:15)
[2019-10-11] MEDS ORDERED: WARFARIN 5 MG TAB PO ONE (00:15)
[2019-10-11] MEDS: FLECAINIDE 50 MG TAB PO SCH ×3 (00:50→20:13)
[2019-10-11] MEDS: PANTOPRAZOLE 40 MG TABLET PO SCH (06:13)
[2019-10-11 06:46] LABS: INR 1.4 (<1.2); Prothrombin Time 13.9 sec (9.0-12.0)
[2019-10-11 06:58] LABS: Albumin 3.3 g/dL (3.5-5.0); Calcium 9.1 mg/dL (8.4-10.2); Potassium 4.2 mmol/L (3.5-5.1); Total Bilirubin 0.6 mg/dL (0.2-1.3); Total Protein 6.6 g/dL (6.3-8.2)
[2019-10-11 07:03] LABS: Basophils # (A) 0.1 k/uL (0-0.2); Basophils % (A) 2 %; Eosinophils # (A) 0.3 k/uL (0-0.7); Eosinophils % (A) 5 %; HCT 35.6 % (34.0-46.0); HGB 11.5 gm/dL (11.4-16.0); Lymphocytes % (A) 30 %; MCH 31.3 pg (25.0-35.0); MCHC 32.2 g/dL (31.0-37.0); MCV 97.4 fL (80.0-100.0); Monocytes # (A) 0.6 k/uL (0-1.0); Monocytes % (A) 9 %; Neutrophils # (A) 3.3 k/uL (1.3-7.7); Neutrophils % (A) 51 %; Platelet Count 200 k/uL (150-450); RBC 3.66 m/uL (3.80-5.40); RDW 15.7 % (11.5-15.5); WBC 6.5 k/uL (3.8-10.6)
[2019-10-11 07:05] LABS: Appearance,Urine Clear (Clear); Bilirubin,Urine Negative (Negative); Blood,Urine Negative (Negative); Color,Urine Light Yellow; Glucose,Urine (UA) Negative (Negative); Ketones,Urine Negative (Negative); Leukocyte Esterase,Urine Negative (Negative); Nitrite,Urine Negative (Negative); Protein,Urine Negative (Negative); Specific Gravity,Urine 1.022 (1.001-1.035); Urobilinogen,Urine <2.0 mg/dL (<2.0)
[2019-10-11] MEDS: CHOLECALCIFEROL 1,000 UNIT TAB PO SCH (08:59)
[2019-10-11] MEDS: METOPROLOL SUCCINATE (ER) 50 MG TAB.ER.24H PO SCH (08:59)
[2019-10-11] MEDS ORDERED: ABALOPARATIDE INJ SCH (09:00)
--- NOTE | 2019-10-11 10:11 | US ---
EXAMINATION TYPE: US carotid duplex BILAT DATE OF EXAM: 10/11/2019 COMPARISON: NONE CLINICAL HISTORY: TIA, left ICA stenosis on CT angiogram. EXAM MEASUREMENTS: RIGHT: Peak Systolic Velocity (PSV) cm/sec ----- Right CCA: 104.8 ----- Right ICA: 111.3 ----- Right ECA: 74.1 ICA/CCA ratio: 1.1 RIGHT: End Diastole cm/sec ----- Right CCA: 14.4 ----- Right ICA: 14.4 ----- Right ECA: 0 LEFT: Peak Systolic Velocity (PSV) cm/sec ----- Left CCA: 104.8 ----- Left ICA: 129.9 ----- Left ECA: 157.8 ICA/CCA ratio: 1.2 LEFT: End Diastole cm/sec ----- Left CCA: 19.2 ----- Left ICA: 25.4 ----- Left ECA: 0 VERTEBRALS (direction of flow): Right Vertebral: Antegrade Left Vertebral: Antegrade Rhythm: Normal IMPRESSION: The proximally 90% stenosis of the left internal carotid artery is not redemonstrated on ultrasound however CTA neck is both more sensitive and specific examination. No hemodynamically sign ificant stenosis in either carotid arterial system on ultrasound. Criteria for Assigning % of Stenosis / Diameter reduction (Estimation based on the indirect measurements of the internal carotid artery velocities (ICA PSV). 1. Normal (no stenosis)=ICA PSV < 125 cm/s: ratio < 2.0: ICA EDV<40 cm/s. 2. Less than 50% stenosis=ICA PSV < 125 cm/s: ratio < 2.0: ICA EDV<40 cm/s. 3. 50 to 69% stenosis=ICA PSV of 125 to 230 cm/s: ration 2.0 ? 4.0: ICA EDV 40-100 cm/s. 4. Greater than 70% stenosis to near occlusion= ICA PSV > 230 cm/s: ratio > 4.0: ICA EDV > 100 cm/s. 5. Near occlusion= ICA PSV velocities may be low or undetectable: variable ratio and ICA EDV. 6. Total occlusion=unable to detect flow.
--- NOTE | 2019-10-11 11:54 | CONS ---
CONSULTATION CHIEF COMPLAINT: Preoperative cardiac evaluation. This is a 69-year-old lady with history of persistent atrial fibrillation, status post prior ablation, severe mitral regurgitation, who is awaiting mitral valve repair, who is admitted to hospital with sudden onset altered speech and confusion. It lasted for about 45 minutes and has gradually resolved. She was evaluated in the emergency room where workup had showed that she has severe stenosis involving left internal carotid artery. I have been consulted for preop evaluation for possible carotid endarterectomy. The patient has severe mitral regurgitation and underwent a transesophageal echo in August that showed severe MR. She apparently also underwent cardiac catheterization that revealed normal coronary arteries. I do not have the cath report with me at this time. The patient does not have any chest pain, difficulty in breathing, palpitations, dizziness or syncope. She has history of atrial fibrillation and underwent prior ablation. She is currently in sinus rhythm on flecainide. She is on Coumadin for long-term anticoagulation. I am going to obtain her coronary angiogram report and if she had normal coronary arteries, I do not see any contraindications for surgery under anesthesia at this time. The patient has severe mitral regurgitation, but she is currently not in heart failure. PAST MEDICAL HISTORY: Significant for persistent atrial fibrillation and severe mitral regurgitation. MEDICATIONS: At home include Coumadin, prednisone, methotrexate, Toprol-XL, Tambocor, Protonix, and vitamin D. ALLERGIES: There are no known drug allergies. FAMILY HISTORY: Negative for premature coronary artery disease. SOCIAL HISTORY: Negative for current smoking, EtOH abuse, or drug abuse. REVIEW OF SYSTEMS: HEENT: Unremarkable. CARDIAC: As described above. RESPIRATORY: As described above. GI: Negative. GENITOURINARY: Negative. ALLERGY: Negative. SKIN: Negative. MUSCULOSKELETAL: Significant for arthritis. PSYCHOSOCIAL: Negative. ENDOCRINE: Negative. HEMATOLOGICAL: Negative. CONSTITUTIONAL: Negative. GAMEPLAY ENGINEER: Significant for symptoms as described above. Rest of the system review is not relevant. PHYSICAL EXAMINATION: On exam, patient is comfortable at rest. Vital signs are stable. There is no jugular venous distention. Carotid upstroke is diminished on the left side with a carotid bruit. Heart exam reveals first and second heart sounds, a grade 4 x 6 pansystolic murmur at the apex. Abdomen is soft. Exam of extremities did not reveal any edema. Peripheral pulses are felt. LABS: Show that the hemoglobin is 11.5, platelet count is 200. INR is subtherapeutic at 1.4 creatinine is 0.8. LDL cholesterol is 157. EKG shows sinus bradycardia with right bundle branch block. ASSESSMENT: 1. Preoperative cardiac evaluation. 2. Transient ischemic attack with secondary to severe left internal carotid artery stenosis. 3. Severe mitral regurgitation. 4. Persistent atrial fibrillation. 5. Hypertension. PLAN: Patient is an acceptable risk candidate for surgery under anesthesia. I am going to review the angiographic data. I will continue Tambocor and Toprol-XL. If the Vascular Surgeon is planning on doing surgery in the next 24-48 hours. We are going to hold the Coumadin and we can start heparin in the meantime. The patient has elevated cholesterols and I am going to start her on a statin. MMNO / REHANAN: [id number] /
--- NOTE | 2019-10-11 12:38 | P.GSCN ---
History of Present Illness Consult date: 10/11/19 History of present illness: Patient is a pleasant 69-year-old woman with a history of persistent atrial fibrillation, status post prior ablation, severe mitral regurgitation who is scheduled for mitral valve repair on October 21 who presented to the emergency department for sudden onset of altered speech and confusion. She states that the episode lasted approximately 30-45 minutes. The patient she also had some dizziness, however denied any facial asymmetry, weakness, headaches, chest pain, shortness of breath. The patient denies any prior history of hyperlipidemia, carotid stenosis, TIA, or stroke. She has had no further episodes of altered speech or confusion. States she still has some mild dizziness. Patient is able to ambulate to the restroom without any difficulty, however nursing is requiring assist. Review of Systems A 14 point review of systems completed, all pertinent positives and negatives as stated in the HPI Past Medical History Past Medical History: Atrial Fibrillation, GERD/Reflux, Hyperlipidemia, Rheumatoid Arthritis (RA) Additional Past Medical History / Comment(s): Compression fracture of L4 and L3 recently treated with kyphoplasty. Compression fracture L2 which is being treated conservatively compression fx L3-sx done. 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 History of Any Multi-Drug Resistant Organisms: None Reported Past Surgical History: Back Surgery, Cardiac Ablation, Orthopedic Surgery, Tonsillectomy Additional Past Surgical History / Comment(s): CATARATS LENS IMPLANTS, RT FOOT REMOVED 3 NODULES, right foot bone removed 05/18/18. Colonoscopy 2016(2nd) to repeat in 5 years. Back surgery 07/15/2018 and 07/22/2018. Cardiac ablation surgery, epidural steroid injections for back pain Past Anesthesia/Blood Transfusion Reactions: No Reported Reaction Additional Past Anesthesia/Blood Transfusion Reaction / Comm: VERTIGO ON A CRUISE Past Psychological History: No Psychological Hx Reported Smoking Status: Former smoker Past Alcohol Use History: None Reported Additional Past Alcohol Use History / Comment(s): STARTED SMOKING AT AGE 19 TO AGE 29 SMOKED 1 PACK PER MONTH. Past Drug Use History: None Reported - Past Family History Father Family Medical History: Cancer, Neurologic Disorder Additional Family Medical History / Comment(s): Prostate cancer. ARRYTHMIA, CORNEAL IMPLANTS, LT EYE BLIND , PARKINSONS, FATHER HAS Mother Family Medical History: Cancer, Coronary Artery Disease (CAD), Diabetes Mellitus, Myocardial Infarction ([place]) Additional Family Medical History / Comment(s): Uterine cancer. CATARACTS, DETATCHED RETINA, GLAUCOMA, MACULAR DEGENERATION, STENTS, BOWEL RESECTION FOR DIVERTICULITIS, KATINA KNEE REPLACEMENT. recently Brother(s) Family Medical History: CVA/TIA Additional Family Medical History / Comment(s): stroke at 65 Sister(s) Family Medical History: No Reported History Medications and Allergies Home Medications Medication Instructions Recorded Confirmed Type Cholecalciferol [Vitamin D3 (25 5,000 units PO DAILY 02/23/14 10/11/19 History Mcg = 1000 Iu)] Pantoprazole Sodium [Protonix] 40 mg PO DAILY 06/29/14 10/11/19 History Abaloparatide [Tymlos] 1.56 ml INJ DAILY 02/15/19 10/11/19 History Flecainide [Tambocor] 75 mg PO BID 03/24/19 10/11/19 History Metoprolol Succinate (ER) [Toprol 50 mg PO DAILY 03/24/19 10/11/19 History XL] Multivitamins, Thera [Multivitamin 1 tab PO DAILY 06/23/19 10/11/19 History (formulary)] Cider Vinegar [Apple Cider Vinegar] 300 mg PO DAILY 07/20/19 10/11/19 History Methotrexate Sodium [Methotrexate] 12.5 mg PO LITTLEJOHN 07/20/19 10/11/19 History Simponi 300 mg IV Q2M 07/20/19 10/10/19 History Warfarin [Coumadin] 7 mg PO FR 08/16/19 10/11/19 History Escitalopram [Lexapro] 10 mg PO DAILY 10/11/19 10/11/19 History Warfarin [Coumadin] 5 mg PO SUMOTUWETHSA 10/11/19 10/11/19 History Allergies Allergy/AdvReac Type Severity Reaction Status Date / Time No Known Allergies Allergy Verified 10/11/19 08:04 Surgical - Exam Vital Signs Temp Pulse Resp BP Pulse Ox 98.2 F 73 16 106/73 99 10/10/19 13:34 10/10/19 13:34 10/10/19 13:34 10/10/19 13:34 10/10/19 13:34 General appearance: The patient is alert, oriented, in no acute distress. HET: Head is normocephalic and atraumatic. Pupils are equal and reactive. Oropharynx is clear without lesions. Neck: Supple without lymphadenopathy. Trachea midline. No audible bruit on right, left with audible bruit. Heart: S1 S2. Regular rate and rhythm. Grade 4 systolic murmur. Lungs: No crackles or wheezes are heard. Abdomen: Soft, nontender, nondistended with bowel sounds. No peritoneal signs. No palpable organomegaly or masses. Extremities: Normal skin color and turgor. No cyanosis, rash, ulceration, club cory, or edema. Radial and pedal pulses are 2/4 bilaterally. Neurological: No focal deficits. Strength and sensation are grossly intact. Facial symmetry, alert and oriented 3. Results CT angiogram of the head and neck reviewed. The impression states probably more than 90% stenosis at the origin of the left internal carotid artery. Bilateral plaque formation at the carotid artery bifurcations. Negative CT angiogram of the brain. Carotid duplex reviewed. The impression states the proximally 90% stenosis of the left internal carotid artery is not redemonstrated on ultrasound. No pain no hemodynamically significant stenosis in either carotid arterial system on ultrasound. CT of the brain without contrast for TPA reviewed. Impression showing mild atrophy. No acute intracranial abnormality. - Labs 10/11/19 05:52 10/11/19 05:52 Abnormal Lab Results - Last 24 Hours (Table) 10/10/19 10/10/19 10/10/19 Range/Units 13:55 14:33 14:33 RBC (3.80-5.40) m/uL Hgb 9.0 L (11.4-16.0) gm/dL MCH 23.0 L (25.0-35.0) pg MCHC 23.8 L (31.0-37.0) g/dL RDW 15.6 H (11.5-15.5) % PT (9.0-12.0) sec INR (<1.2) APTT (22.0-30.0) sec POC Glucose (mg/dL) 100 H (75-99) mg/dL AST 44 H (14-36) U/L Albumin (3.5-5.0) g/dL Cholesterol (<200) mg/dL LDL Cholesterol, Calc (0-99) mg/dL 10/10/19 10/11/19 10/11/19 Range/Units 14:33 05:52 05:52 RBC 3.66 L (3.80-5.40) m/uL Hgb (11.4-16.0) gm/dL MCH (25.0-35.0) pg MCHC (31.0-37.0) g/dL RDW 15.7 H (11.5-15.5) % PT 16.1 H (9.0-12.0) sec INR 1.6 H (<1.2) APTT 19.7 L (22.0-30.0) sec POC Glucose (mg/dL) (75-99) mg/dL AST (14-36) U/L Albumin 3.3 L (3.5-5.0) g/dL Cholesterol 217 H (<200) mg/dL LDL Cholesterol, Calc 157 H (0-99) mg/dL 10/11/19 Range/Units 05:52 RBC (3.80-5.40) m/uL Hgb (11.4-16.0) gm/dL MCH (25.0-35.0) pg MCHC (31.0-37.0) g/dL RDW (11.5-15.5) % PT 13.9 H (9.0-12.0) sec INR 1.4 H (<1.2) APTT (22.0-30.0) sec POC Glucose (mg/dL) (75-99) mg/dL AST (14-36) U/L Albumin (3.5-5.0) g/dL Cholesterol (<200) mg/dL LDL Cholesterol, Calc (0-99) mg/dL Diabetes panel 10/10/19 10/11/19 Range/Units 14:33 05:52 Sodium 138 140 (137-145) mmol/L Potassium 4.8 4.2 (3.5-5.1) mmol/L Chloride 107 107 (98-107) mmol/L Carbon Dioxide 22 26 (22-30) mmol/L BUN 13 12 (7-17) mg/dL Creatinine 0.79 0.84 (0.52-1.04) mg/dL Glucose 86 80 (74-99) mg/dL Calcium 9.8 9.1 (8.4-10.2) mg/dL AST 44 H 33 (14-36) U/L ALT 16 13 (4-34) U/L Alkaline Phosphatase 68 59 (38-126) U/L Total Protein 7.3 6.6 (6.3-8.2) g/dL Albumin 3.8 3.3 L (3.5-5.0) g/dL Triglycerides 90 (<150) mg/dL HDL Cholesterol 42 (40-60) mg/dL Calcium panel 10/10/19 10/11/19 Range/Units 14:33 05:52 Calcium 9.8 9.1 (8.4-10.2) mg/dL Albumin 3.8 3.3 L (3.5-5.0) g/dL Pituitary panel 10/10/19 10/11/19 Range/Units 14:33 05:52 Sodium 138 140 (137-145) mmol/L Potassium 4.8 4.2 (3.5-5.1) mmol/L Chloride 107 107 (98-107) mmol/L Carbon Dioxide 22 26 (22-30) mmol/L BUN 13 12 (7-17) mg/dL Creatinine 0.79 0.84 (0.52-1.04) mg/dL Glucose 86 80 (74-99) mg/dL Calcium 9.8 9.1 (8.4-10.2) mg/dL Adrenal panel 10/10/19 10/11/19 Range/Units 14:33 05:52 Sodium 138 140 (137-145) mmol/L Potassium 4.8 4.2 (3.5-5.1) mmol/L Chloride 107 107 (98-107) mmol/L Carbon Dioxide 22 26 (22-30) mmol/L BUN 13 12 (7-17) mg/dL Creatinine 0.79 0.84 (0.52-1.04) mg/dL Glucose 86 80 (74-99) mg/dL Calcium 9.8 9.1 (8.4-10.2) mg/dL Total Bilirubin 0.7 0.6 (0.2-1.3) mg/dL AST 44 H 33 (14-36) U/L ALT 16 13 (4-34) U/L Alkaline Phosphatase 68 59 (38-126) U/L Total Protein 7.3 6.6 (6.3-8.2) g/dL Albumin 3.8 3.3 L (3.5-5.0) g/dL Assessment and Plan Assessment: #1 Left internal carotid stenosis #2 transient ischemic attack #3 atrial fibrillation #4 severe mitral regurgitation #5 hypertension Plan: Discussed this patient with Dr. Torres. Recommend cardiology consult. Bilateral carotid duplex ordered. Await recommendations per neurology. Further recommendations to follow. Thank you for this consultation and allowing us to participate in the plan of care of this patient during her hospital stay. The above dictated assessment and findings were discussed with Dr. Torres.. The impression and plan of care have been directed as dictated.
--- NOTE | 2019-10-11 14:42 | P.HPIM ---
History of Present Illness H&P Date: 10/11/19 Chief Complaint: dizziness, slurred speech This is a 69-year-old female patient of Dr. Esteban with history of rheumatoid arthritis, hyperlipidemia, paroxysmal atrial fibrillation, mitral regurgitation. Patient had a recent hospitalization in February 2019 which time she presented with atrial fibrillation/flutter with RVR underwent ablation with Dr. Longoria on 2 separate occasions. Patient states she had done well until she again had atrial fibrillation in June that was of a different type within her previous. This was coming going for short periods. She underwent JOSE L, heart catheterization in August that found only mild coronary artery disease. She saw Dr. Kayla Campos and is scheduled for mitral valve replacement or repair a week from at [facility]. Patient states that she was talking to her neighbor and all of a sudden she was feeling dizzy and her speech was gibberish and slurred and she couldn't put out the words that she wanted to. She denies having any headache. Her symptoms lasted for about 45 minutes but she did have some residual dizziness. Patient denies any history of CVA, TIA. Patient presented to emergency center for evaluation and NIH score 0. Hemoglobin 9 otherwise CBC and CMP unremarkable. INR 1.6 Blood sugar 100. Troponin negative. TSH 2.300. Triglycerides 90, cholesterol 217, LDL 157, HDL 42. Urinalysis negative for infection. Patient was afebrile, heart rate 73, initial blood pressure 106/73. EKG was a sinus rhythm with no acute ST changes. CAT scan of the brain showed no acute intracranial abnormality. CT angiogram of the brain was negative. Probable 90% stenosis of the left internal carotid artery. Bilateral plaque formation at the carotid artery bifurcations. Chest x-ray showed no acute cardiopulmonary process. Diffuse chronic interstitial prominence likely related to background fibrosis. Carotid ultrasound revealed 90% stenosis of the left internal carotid artery is not redemonstrated on ultrasound. No significant hemodynamic stenosis in either carotid system. Patient admitted to the cardiac stepdown unit and consults with cardiology and vascular surgery. Review of Systems Constitutional: Denies chills, Denies fatigue, Denies fever, Denies poor appetite, Denies weakness Eyes: denies blurred vision, denies pain Ears, nose, mouth and throat: Reports vertigo, Denies dysphagia, Denies headache, Denies nasal congestion, Denies nasal discharge, Denies sore throat Cardiovascular: Denies chest pain, Denies decreased exercise tolerance, Denies dyspnea on exertion, Denies lightheadedness, Denies palpitations, Denies shortness of breath Respiratory: Denies cough, Denies excessive sputum, Denies hemoptysis, Denies home oxygen, Denies wheezing Gastrointestinal: Denies abdominal pain, Denies diarrhea, Denies loss of appetite, Denies nausea, Denies vomiting Genitourinary: Denies dysuria, Denies hematuria, Denies urgency, Denies urinary frequency Musculoskeletal: Denies frequent falls, Denies gait dysfunction, Denies muscle weakness, Denies myalgias Integumentary: Denies pruritus, Denies rash, Denies wounds Neurological: Reports change in speech, Reports vertigo, Denies numbness, Denies weakness Psychiatric: Denies anxiety, Denies depression Endocrine: Denies fatigue, Denies weight change Past Medical History Past Medical History: Atrial Fibrillation, GERD/Reflux, Hyperlipidemia, Rheumatoid Arthritis (RA) Additional Past Medical History / Comment(s): Compression fracture of L4 and L3 recently treated with kyphoplasty. Compression fracture L2 which is being treated conservatively compression fx L3-sx done. 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 History of Any Multi-Drug Resistant Organisms: None Reported Past Surgical History: Back Surgery, Cardiac Ablation, Orthopedic Surgery, Tonsillectomy Additional Past Surgical History / Comment(s): CATARATS LENS IMPLANTS, RT FOOT REMOVED 3 NODULES, right foot bone removed 05/18/18. Colonoscopy 2016(2nd) to repeat in 5 years. Back surgery 07/15/2018 and 07/22/2018. Cardiac ablation surgery, epidural steroid injections for back pain Past Anesthesia/Blood Transfusion Reactions: No Reported Reaction Additional Past Anesthesia/Blood Transfusion Reaction / Comment(s): VERTIGO ON A CRUISE Past Psychological History: No Psychological Hx Reported Smoking Status: Former smoker Past Alcohol Use History: None Reported Additional Past Alcohol Use History / Comment(s): STARTED SMOKING AT AGE 19 TO AGE 29 SMOKED 1 PACK PER MONTH. Past Drug Use History: None Reported - Past Family History Father Family Medical History: Cancer, Neurologic Disorder Additional Family Medical History / Comment(s): Prostate cancer. ARRYTHMIA, CORNEAL IMPLANTS, LT EYE BLIND , PARKINSONS, FATHER HAS Mother Family Medical History: Cancer, Coronary Artery Disease (CAD), Diabetes Mellitus, Myocardial Infarction ([place]) Additional Family Medical History / Comment(s): Uterine cancer. CATARACTS, DETATCHED RETINA, GLAUCOMA, MACULAR DEGENERATION, STENTS, BOWEL RESECTION FOR DIVERTICULITIS, KATINA KNEE REPLACEMENT. recently Brother(s) Family Medical History: CVA/TIA Additional Family Medical History / Comment(s): stroke at 65 Sister(s) Family Medical History: No Reported History Medications and Allergies Home Medications Medication Instructions Recorded Confirmed Type Cholecalciferol [Vitamin D3 (25 1,000 unit PO DAILY 02/23/14 10/12/19 History Mcg = 1000 Iu)] Pantoprazole Sodium [Protonix] 40 mg PO DAILY 06/29/14 10/11/19 History Abaloparatide [Tymlos] 80 mcg SQ DAILY 02/15/19 10/12/19 History Flecainide [Tambocor] 75 mg PO BID 03/24/19 10/11/19 History Multivitamins, Thera [Multivitamin 1 tab PO DAILY 06/23/19 10/11/19 History (formulary)] Cider Vinegar [Apple Cider Vinegar] 300 mg PO DAILY 07/20/19 10/11/19 History Methotrexate Sodium [Methotrexate] 12.5 mg PO LITTLEJOHN 07/20/19 10/11/19 History Warfarin [Coumadin] 7.5 mg PO FR 08/16/19 10/12/19 History Escitalopram [Lexapro] 10 mg PO DAILY 10/11/19 10/11/19 History Warfarin [Coumadin] 5 mg PO SUMOTUWETHSA 10/11/19 10/11/19 History Metoprolol Succinate (ER) [Toprol 50 mg PO DAILY 10/12/19 10/12/19 History Xl] Simponi 100 mg SQ Q56D 10/12/19 10/12/19 History Allergies Allergy/AdvReac Type Severity Reaction Status Date / Time No Known Allergies Allergy Verified 10/11/19 08:04 Physical Exam Vitals: Vital Signs Temp Pulse Pulse Resp BP BP Pulse Ox 10/11/19 09:12 98.3 F 67 16 93/58 96 10/11/19 09:07 16 10/11/19 04:00 97.9 F 67 16 105/64 94 L 10/11/19 03:39 97.9 F 67 16 105/64 94 L 10/11/19 01:39 97.7 F 68 16 116/67 97 10/11/19 00:00 97.7 F 73 16 121/77 97 10/10/19 21:39 97.7 F 73 16 121/77 97 10/10/19 20:54 98.1 F 77 16 120/78 100 10/10/19 20:15 98.3 F 67 15 115/67 99 10/10/19 19:15 97.5 F L 68 14 115/74 99 10/10/19 19:03 98.2 F 71 18 116/64 97 10/10/19 18:30 71 23 108/65 97 10/10/19 18:19 71 23 108/65 97 10/10/19 18:00 108/65 10/10/19 17:30 68 10 L 111/73 10/10/19 17:00 67 9 L 108/67 98 10/10/19 16:30 66 11 L 62 L 10/10/19 16:00 117/70 10/10/19 15:30 63 11 L 110/76 10/10/19 15:24 66 13 126/69 97 10/10/19 15:00 66 13 126/69 10/10/19 14:30 66 11 L 107/83 10/10/19 14:00 66 11 L 102/75 96 10/10/19 13:50 66 17 97 10/10/19 13:34 98.2 F 73 16 106/73 99 Intake and Output 10/10/19 10/11/19 10/11/19 22:59 06:59 14:59 Intake Total 400 540 240 Balance 400 540 240 Intake: Intake, IV Titration 540 Amount Sodium Chloride 0.9% 1, 540 000 ml @ 20 mls/hr IV . Q24H [facility] Rx#:[id number] Oral 400 240 Other: Voiding Method Toilet Toilet Weight 58.06 kg 60.4 kg Results CBC & Chem 7: 10/11/19 05:52 10/11/19 05:52 Labs: Abnormal Lab Results - Last 24 Hours (Table) 10/10/19 10/10/19 10/10/19 Range/Units 13:55 14:33 14:33 RBC (3.80-5.40) m/uL Hgb 9.0 L (11.4-16.0) gm/dL MCH 23.0 L (25.0-35.0) pg MCHC 23.8 L (31.0-37.0) g/dL RDW 15.6 H (11.5-15.5) % PT (9.0-12.0) sec INR (<1.2) APTT (22.0-30.0) sec POC Glucose (mg/dL) 100 H (75-99) mg/dL AST 44 H (14-36) U/L Albumin (3.5-5.0) g/dL Cholesterol (<200) mg/dL LDL Cholesterol, Calc (0-99) mg/dL 10/10/19 10/11/19 10/11/19 Range/Units 14:33 05:52 05:52 RBC 3.66 L (3.80-5.40) m/uL Hgb (11.4-16.0) gm/dL MCH (25.0-35.0) pg MCHC (31.0-37.0) g/dL RDW 15.7 H (11.5-15.5) % PT 16.1 H (9.0-12.0) sec INR 1.6 H (<1.2) APTT 19.7 L (22.0-30.0) sec POC Glucose (mg/dL) (75-99) mg/dL AST (14-36) U/L Albumin 3.3 L (3.5-5.0) g/dL Cholesterol 217 H (<200) mg/dL LDL Cholesterol, Calc 157 H (0-99) mg/dL 10/11/19 Range/Units 05:52 RBC (3.80-5.40) m/uL Hgb (11.4-16.0) gm/dL MCH (25.0-35.0) pg MCHC (31.0-37.0) g/dL RDW (11.5-15.5) % PT 13.9 H (9.0-12.0) sec INR 1.4 H (<1.2) APTT (22.0-30.0) sec POC Glucose (mg/dL) (75-99) mg/dL AST (14-36) U/L Albumin (3.5-5.0) g/dL Cholesterol (<200) mg/dL LDL Cholesterol, Calc (0-99) mg/dL Thrombosis Risk Factor Assmnt - Choose All That Apply Any of the Below Risk Factors Present?: No Other Risk Factors: Yes Each Risk Factor Represents 2 Points: Age 61-74 years Other congenital or acquired thrombophilia - If yes, enter type in comment: Yes Each Risk Factor Represents 5 Points: Stroke (< 1 month) Thrombosis Risk Factor Assessment Total Risk Factor Score: 7 Thrombosis Risk Factor Assessment Level: High Risk Assessment and Plan Plan: 1. TIA secondary to left internal carotid artery stenosis. Consult with neurology. MRI will order, Valium for premedication. 2. Internal carotid artery stenosis, to be further evaluated. Consult with vascular surgery. 3. Severe mitral regurgitation with scheduled surgery a week from at [facility] with Dr. Kayla Campos. Cardiology consult appreciated. If surgery in the 24-48 hours, hold Coumadin and start heparin. 4. Paroxysmal atrial fibrillation on chronic Coumadin. Cardiology consult appreciated. Continue Toprol XL 50 mg daily, flecainide 75 mg twice daily. C oumadin resumed, monitor INR. 5. Rheumatoid arthritis. Patient is normally on methotrexate 12.5 mg every week will be continued. Hold Simponi. 6. History of GERD. Continue Protonix. 7. Vitamin D deficiency. Continue supplementation. 8. 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 Hold Tymlos. 9. Recurrent depression. Continue Lexapro 10 mg daily. 10. DVT prophylaxis. Coumadin. Patient will be admitted to the hospital for a minimum of 2 night stay. Discharge plan: home Impression and plan of care have been directed as dictated by the signing physician. Juliette Terrazas nurse practitioner acting as scribe for signing physician.
[2019-10-11] MEDS ORDERED: WARFARIN 5 MG TAB PO SCH (18:00)
--- NOTE | 2019-10-11 21:26 | P.CNNES ---
History of Present Illness Consult date: 10/11/19 Reason for Consult: Concern for stroke Chief complaint: speech difficulty and dizziness History of Present Illness: HISTORY OF PRESENT ILLNESS: Thank you for allowing me to evaluate Ms. Didi Ruano. Ms. Ruano is a 69 year-old woman with PMhx of a.fib, GERD, HLD, rheumatoid arthritis, L3/L4 compression fracture treated with kyphoplasty, L2 compression fracture no surgery, presented to [facility] for an episode of speech difficulty lasting ~15 minutes. Patient states that she was with a neighbor having coffee when she suddenly had dizziness/lightheadedness, denies room- spinning sensation, and then when she tried to say something, she realized she was just saying random words, and when she tried to say, "am I okay" to her neighbor, she couldn't say, but the neighbor understood and said, "you don't look okay." Patient also reports taht she had some numbness of her R hand for a short time period but improved quickly. Patient's symptoms improved within about 15 minutes, and when she went home and called her brother who recently had a stroke, she was told to go to the hospital just to make sure. Pt denies previous episodes of similar symptoms. Patient denies any recent fever, sickness, nausea, vomiting, vision changes, weakness, diarrhea. PAST MEDICAL HISTORY: a.fib, GERD, HLD, rheumatoid arthritis, L3/L4 compression fracture treated with kyphoplasty, L2 compression fracture no surgery PAST SURGICAL HISTORY: Back surgery, cardiac ablation, tonsillectomy, cataract implants, Epidural steroid injections for back pain HOME MEDICATIONS: Vitamin D, protonix, abaloparatide, flecainide, metoprolol, MVT, methotrexate, coumadin, prednisone, simponi ALLERGIES: NKDA SOCIAL HISTORY: Former smoker. FAMILY HISTORY: Father with prostate cancer, parkinson's disease, arrythmia. Mother with uterine cancer, CAD, DM, [place], glaucoma. Brother with stroke at age 65. REVIEW OF SYSTEMS: The 14 systems are reviewed and no additional points are identified compared to the review of systems documented history and physical PHYSICAL EXAMINATION: VITAL SIGNS: T 98.3 HR 67 RR 16 BP 93/58 O2 sat 96% on RA GEN.: NAD, pleasant and cooperative HEENT: NCAT, sclera without icterus NECK: Supple SKIN AND EXTREMITIES: Warm to touch, no edema NEURO: MENTAL STATUS: Patient alert and oriented to self, place, time. Able to name the current president. Speech fluent, able to name and repeat, following all commands readily. No right and left disorientation, neglect. CRANIAL NERVES II THROUGH XII: II: Pupils are equal and reactive to light symmetrically. Visual silva are intact. III, IV, : No ptosis. Extraocular movements full. No nystagmus. V: Facial sensation intact from V1-3. VII. No clear facial asymmetry. VIII: Hearing intact to finger rub bilaterally. IX, X: Symmetric palate elevation. XI: Shoulder shrug intact. XII: Tongue midline without fasciculation or atrophy. MOTOR: Normal bulk/tone. No pronator drift or tremor. Strength is 5/5 throughout all 4 extremities. SENSORY: Intact to light touch in all 4 extremities. Romberg is negative. REFLEXES: 2+ throughout. Toes are downgoing. COORDINATION: Finger to nose intact. No dysmetria. GAIT: Narrow-based and stable. Able to toe/heel/tandem walk DIAGNOSTIC TESTING: LABORATORY: WBC 6.5 Hgb 11.5 Platelet 200 PT 13.9 INR 1.4 Na 140 K 4.2 Cl 107 CO2 26 BUN 12 Cr 0.84 Glucose 80 AST 33 ALT 13 AlkPhos 59 Total cholesterol 217 LDL 157 HDL 42 TG 90 IMAGING: CT Head w/o contrast 10/10/2019: Mild atrophy. No acute intracranial abnormality. CTA Head and Neck w/ and w/o contrast 10/10/2019: Probably more than 90% stenosis at the origin of L ICA. b/l plaque formation at the carotid artery bifurcation. Carotid Doppler 10/11/2019: Proximally 90% stenosis of L ICA is NOT demonstrated on ultrasound, but CTA neck is both more sensitive and specific. No hemodynamically significant stenosis in either carotid arterial system on US. ASSESSMENT: 69 year-old woman with PMhx of a.fib, GERD, HLD, rheumatoid arthritis, L3/L4 compression fracture treated with kyphoplasty, L2 compression fracture no surgery, presented to [facility] for an episode of speech difficulty lasting ~15 minutes. Patient with risk factors for stroke, i.e. a.fib, HLD, smoking history, age and L ICA stenosis. Will pursue stroke work-up and management RECOMMENDATIONS: 1. MRI brain w/o contrast 2. Transthoracic echocardiogram 3. Permissive HTN for 24-48 hours SBP >220. Give labetalol 10mg IV q1h PRN for SBP >220 DBP >110 4. c/w coumadin 5. Atorvastatin 80mg qhs 6. Labs: A1C, TSH, FLP 7. Discussed with patient about stroke prevention guidelines. Medication compliance, hypertension/diabetes control, lifestyle changes including no smoking, drinking in moderation, losing weight, exercising, eating healthier 8. Neurology will continue to follow 9. Patient needs to follow up with neurologist as outpatient with her 1-2 weeks of discharge 10. Discussed ED precautions: return to ED if having severe headache, nausea, vomiting, vision deficits, speech difficulty, facial asymmetry, weakness, numb ness or tingling. Past Medical History Past Medical History: Atrial Fibrillation, GERD/Reflux, Hyperlipidemia, Rheumatoid Arthritis (RA) Additional Past Medical History / Comment(s): Compression fracture of L4 and L3 recently treated with kyphoplasty. Compression fracture L2 which is being treated conservatively compression fx L3-sx done. 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 History of Any Multi-Drug Resistant Organisms: None Reported Past Surgical History: Back Surgery, Cardiac Ablation, Orthopedic Surgery, Tonsillectomy Additional Past Surgical History / Comment(s): CATARATS LENS IMPLANTS, RT FOOT REMOVED 3 NODULES, right foot bone removed 05/18/18. Colonoscopy 2016(2nd) to repeat in 5 years. Back surgery 07/15/2018 and 07/22/2018. Cardiac ablation surgery, epidural steroid injections for back pain Past Anesthesia/Blood Transfusion Reactions: No Reported Reaction Additional Past Anesthesia/Blood Transfusion Reaction / Comment(s): VERTIGO ON A CRUISE Past Psychological History: No Psychological Hx Reported Smoking Status: Former smoker Past Alcohol Use History: None Reported Additional Past Alcohol Use History / Comment(s): STARTED SMOKING AT AGE 19 TO AGE 29 SMOKED 1 PACK PER MONTH. Past Drug Use History: None Reported - Past Family History Father Family Medical History: Cancer, Neurologic Disorder Additional Family Medical History / Comment(s): Prostate cancer. ARRYTHMIA, CORNEAL IMPLANTS, LT EYE BLIND , PARKINSONS, FATHER HAS Mother Family Medical History: Cancer, Coronary Artery Disease (CAD), Diabetes Me llitus, Myocardial Infarction ([place]) Additional Family Medical History / Comment(s): Uterine cancer. CATARACTS, DETATCHED RETINA, GLAUCOMA, MACULAR DEGENERATION, STENTS, BOWEL RESECTION FOR DIVERTICULITIS, KATINA KNEE REPLACEMENT. recently Brother(s) Family Medical History: CVA/TIA Additional Family Medical History / Comment(s): stroke at 65 Sister(s) Family Medical History: No Reported History Medications and Allergies Home Medications Medication Instructions Recorded Confirmed Type Cholecalciferol [Vitamin D3 (25 5,000 units PO DAILY 02/23/14 10/11/19 History Mcg = 1000 Iu)] Pantoprazole Sodium [Protonix] 40 mg PO DAILY 06/29/14 10/11/19 History Abaloparatide [Tymlos] 1.56 ml INJ DAILY 02/15/19 10/11/19 History Flecainide [Tambocor] 75 mg PO BID 03/24/19 10/11/19 History Metoprolol Succinate (ER) [Toprol 50 mg PO DAILY 03/24/19 10/11/19 History XL] Multivitamins, Thera [Multivitamin 1 tab PO DAILY 06/23/19 10/11/19 History (formulary)] Cider Vinegar [Apple Cider Vinegar] 300 mg PO DAILY 07/20/19 10/11/19 History Methotrexate Sodium [Methotrexate] 12.5 mg PO LITTLEJOHN 07/20/19 10/11/19 History Simponi 300 mg IV Q2M 07/20/19 10/10/19 History Warfarin [Coumadin] 7 mg PO FR 08/16/19 10/11/19 History Escitalopram [Lexapro] 10 mg PO DAILY 10/11/19 10/11/19 History Warfarin [Coumadin] 5 mg PO SUMOTUWETHSA 10/11/19 10/11/19 History Allergies Allergy/AdvReac Type Severity Reaction Status Date / Time No Known Allergies Allergy Verified 10/11/19 08:04 Physical Examination - Vital Signs Vital Signs: Vital Signs Temp Pulse Pulse Resp BP BP Pulse Ox 10/11/19 09:12 98.3 F 67 16 93/58 96 10/11/19 09:07 16 10/11/19 04:00 97.9 F 67 16 105/64 94 L 10/11/19 03:39 97.9 F 67 16 105/64 94 L 10/11/19 01:39 97.7 F 68 16 116/67 97 10/11/19 00:00 97.7 F 73 16 121/77 97 10/10/19 21:39 97.7 F 73 16 121/77 97 10/10/19 20:54 98.1 F 77 16 120/78 100 10/10/19 20:15 98.3 F 67 15 115/67 99 10/10/19 19:15 97.5 F L 68 14 115/74 99 10/10/19 19:03 98.2 F 71 18 116/64 97 10/10/19 18:30 71 23 108/65 97 10/10/19 18:19 71 23 108/65 97 10/10/19 18:00 108/65 10/10/19 17:30 68 10 L 111/73 10/10/19 17:00 67 9 L 108/67 98 10/10/19 16:30 66 11 L 62 L 10/10/19 16:00 117/70 10/10/19 15:30 63 11 L 110/76 10/10/19 15:24 66 13 126/69 97 10/10/19 15:00 66 13 126/69 10/10/19 14:30 66 11 L 107/83 10/10/19 14:00 66 11 L 102/75 96 10/10/19 13:50 66 17 97 10/10/19 13:34 98.2 F 73 16 106/73 99 Intake and Output 10/10/19 10/11/19 10/11/19 22:59 06:59 14:59 Intake Total 400 540 240 Balance 400 540 240 Intake: Intake, IV Titration 540 Amount Sodium Chloride 0.9% 1, 540 000 ml @ 20 mls/hr IV . Q24H [facility] Rx#:[id number] Oral 400 240 Other: Voiding Method Toilet Toilet Weight 58.06 kg 60.4 kg Results - Laboratory Findings CBC and BMP: 10/11/19 05:52 10/11/19 05:52 Abnormal Lab Findings: Abnormal Labs 10/10/19 10/10/19 10/10/19 13:55 14:33 14:33 RBC Hgb 9.0 L MCH 23.0 L MCHC 23.8 L RDW 15.6 H PT INR APTT POC Glucose (mg/dL) 100 H AST 44 H Albumin Cholesterol LDL Cholesterol, Calc 10/10/19 10/11/19 10/11/19 14:33 05:52 05:52 RBC 3.66 L Hgb MCH MCHC RDW 15.7 H PT 16.1 H INR 1.6 H APTT 19.7 L POC Glucose (mg/dL) AST Albumin 3.3 L Cholesterol 217 H LDL Cholesterol, Calc 157 H 10/11/19 05:52 RBC Hgb MCH MCHC RDW PT 13.9 H INR 1.4 H APTT POC Glucose (mg/dL) AST Albumin Cholesterol LDL Cholesterol, Calc
[2019-10-11 22:07] LABS: Hemoglobin A1C 5.2 % (4.0-6.0)
[2019-10-12] MEDS: PANTOPRAZOLE 40 MG TABLET PO SCH (06:06)
[2019-10-12] MEDS ORDERED: ABALOPARATIDE INJ SCH (09:00)
[2019-10-12] MEDS: FLECAINIDE 50 MG TAB PO SCH ×2 (09:56→21:07)
[2019-10-12] MEDS: METOPROLOL SUCCINATE (ER) 50 MG TAB.ER.24H PO SCH (09:57)
[2019-10-12] MEDS: CHOLECALCIFEROL 1,000 UNIT TAB PO SCH (09:57)
[2019-10-12] MEDS ORDERED: DIAZEPAM 5 MG TAB PO STA (10:30)
[2019-10-12] MEDS: DIAZEPAM 5 MG TAB PO SCH (10:35)
--- NOTE | 2019-10-12 10:52 | P.PN ---
Subjective Progress Note Date: 10/12/19 Patient seen and examined sitting up in chair. Patient denies any further episodes of changes in speech, states still has some mild dizziness at times. Denies any weakness in her upper or lower extremities, chest pain, or shortness of breath. Patient is waiting to go down for MRI of the brain. Objective - Vital Signs Vital signs: Vital Signs Temp 98.0 F 10/12/19 04:00 Pulse 73 10/12/19 04:00 Resp 16 10/12/19 04:00 BP 103/66 10/12/19 04:00 Pulse Ox 96 10/12/19 04:00 Intake & Output 10/11/19 10/12/19 10/12/19 18:59 06:59 18:59 Intake Total 480 540 Output Total 475 Balance 480 65 Weight 62 kg Intake: Oral 480 540 Output: Urine 475 Other: Voiding Method Toilet Toilet # Voids 1 - Exam General appearance: The patient is alert, oriented, in no acute distress. HET: Head is normocephalic and atraumatic. Pupils are equal and reactive. Neck: Supple without lymphadenopathy. Trachea midline. No audible carotid b ruit bilaterally Heart: S1 S2. Regular rate and rhythm. Grade 4 systolic murmur. Lungs: No crackles or wheezes are heard. Extremities: Normal skin color and turgor. No cyanosis, rash, ulceration, c lubbing, or edema. Palpable femoral, popliteal, PT, and DP pulses bilaterally. Neurological: No focal deficits. Strength and sensation are grossly intact. Facial symmetry, normal speech. - Labs CBC & Chem 7: 10/11/19 05:52 10/11/19 05:52 Assessment and Plan Assessment: #1 Left internal carotid stenosis #2 transient ischemic attack #3 atrial fibrillation #4 severe mitral regurgitation #5 hypertension Plan: Patient remains asymptomatic while in hospital, other than a little dizziness, awaiting MRI of brain. Recommend statin therapy. Continue to hold Coumadin for now. Dr. Rolle had extensive discussion with patient regarding plan of care. Patient scheduled for cerebral angiogram tomorrow. Further recommendations to follow based on MRI results. The above dictated assessment and findings were discussed with Dr. Rolle. The impression and plan of care have been directed as dictated.
[2019-10-12] MEDS ORDERED: DIAZEPAM 5 MG TAB PO ONE (11:15)
--- NOTE | 2019-10-12 12:57 | MR ---
EXAMINATION TYPE: MR brain wo con DATE OF EXAM: 10/12/2019 COMPARISON: NONE HISTORY: 69-year-old female with weakness, Concern for stroke TECHNIQUE: Multiplanar, multisequence images of the brain and brainstem were acquired without IV con trast. Diffusion weighted imaging is performed. FINDINGS: No evidence for acute infarction, hemorrhage, mass, mass effect, midline shift, herniation, effacemen t of basal cisterns, or extra-axial fluid collection. The ventricles and sulci are age-appropriate. Mild generalized supratentorial volume loss. Major intracranial flow voids are intact. T2/FLAIR weighted sequences show moderate scattered foci of bright white matter change particularly i n the periventricular and deep white matter regions and additional scattered foci in the subcortical regions. Most confluent area is present in the right centrum semiovale measuring 1.2 cm Midline structures demonstrate normal morphology. The craniocervical junction is normal. The visualized sinuses are clear and the globes are intact. IMPRESSION: 1. No acute intracranial abnormality seen. 2. Mild cerebral atrophy and moderate scattered burden of chronic small vessel ischemic disease.
--- NOTE | 2019-10-12 13:42 | P.PN ---
Subjective Progress Note Date: 10/12/19 This is a 69-year-old female patient of Dr. Esteban with history of rheumatoid arthritis, hyperlipidemia, paroxysmal atrial fibrillation, mitral regurgitation. Patient had a recent hospitalization in February 2019 which time she presented with atrial fibrillation/flutter with RVR underwent ablation with Dr. Longoria on 2 separate occasions. Patient states she had done well until she again had atrial fibrillation in June that was of a different type within her previous. This was coming going for short periods. She underwent JOSE L, heart catheterization in August that found only mild coronary artery disease. She saw Dr. Kayla Campos and is scheduled for mitral valve replacement or repair a week from at [facility]. Patient states that she was talking to her neighbor and all of a sudden she was feeling dizzy and her speech was gibberish and slurred and she couldn't put out the words that she wanted to. She denies having any headache. Her symptoms lasted for about 45 minutes but she did have some residual dizziness. Patient denies any history of CVA, TIA. Patient presented to [facility] emergency [facility] for evaluation and NIH score 0. Hemoglobin 9 otherwise CBC and CMP unremarkable. INR 1.6 Blood sugar 100. Troponin negative. TSH 2.300. Triglycerides 90, cholesterol 217, LDL 157, HDL 42. Urinalysis negative for infection. Patient was afebrile, heart rate 73, initial blood pressure 106/73. EKG was a sinus rhythm with no acute ST changes. CAT scan of the brain showed no acute intracranial abnormality. CT angiogram of the brain was negative. Probable 90% stenosis of the left internal carotid artery. Bilateral plaque formation at the carotid artery bifurcations. Chest x-ray showed no acute cardiopulmonary process. Diffuse chronic interstitial prominence likely related to background fibrosis. Carotid ultrasound revealed 90% stenosis of the left internal carotid artery is not redemonstrated on ultrasound. No significant hemodynamic stenosis in either carotid system. Patient admitted to the cardiac stepdown unit and consults with cardiology and vascular surgery. 2/4: Patient denies any new complaints. She denies any difficulty with her speech or weakness, no dizziness. Patient is seen by vascular surgery with plan for outpatient angiogram. Patient is also been seen by neurology with plan for MRI of the brain, echocardiogram, permissive hypertension for 24-48 hours, continue Coumadin, atorvastatin. Hemoglobin A1c 5.2. Patient's MRI is scheduled for today. Patient has been afebrile, heart rate 71, blood pressure 108/59, pulse ox 97% on room air. Anticipate probable discharge in the next 24 hours. Review of Systems Constitutional: Denies chills, Denies fatigue, Denies fever, Denies poor appetite, Denies weakness Eyes: denies blurred vision, denies pain Ears, nose, mouth and throat: Denies vertigo, Denies dysphagia, Denies headache, Denies nasal congestion, Denies nasal discharge, Denies sore throat Cardiovascular: Denies chest pain, Denies decreased exercise tolerance, Denies dyspnea on exertion, Denies lightheadedness, Denies palpitations, Denies shortness of breath Respiratory: Denies cough, Denies excessive sputum, Denies hemoptysis, Denies home oxygen, Denies wheezing Gastrointestinal: Denies abdominal pain, Denies diarrhea, Denies loss of appetite, Denies nausea, Denies vomiting Genitourinary: Denies dysuria, Denies hematuria, Denies urgency, Denies urinary frequency Musculoskeletal: Denies frequent falls, Denies gait dysfunction, Denies muscle weakness, Denies myalgias Integumentary: Denies pruritus, Denies rash, Denies wounds Neurological: Denies change in speech, denies vertigo, Denies numbness, Denies weakness Psychiatric: Denies anxiety, Denies depression Endocrine: Denies fatigue, Denies weight change Objective - Vital Signs Vital signs: Vital Signs Temp 98.0 F 10/12/19 04:00 Pulse 73 10/12/19 04:00 Resp 16 10/12/19 04:00 BP 103/66 10/12/19 04:00 Pulse Ox 96 10/12/19 04:00 Intake & Output 10/11/19 10/12/19 10/12/19 18:59 06:59 18:59 Intake Total 480 540 Output Total 475 Balance 480 65 Weight 62 kg Intake: Oral 480 540 Output: Urine 475 Other: Voiding Method Toilet Toilet # Voids 1 - Exam Gen: This is a 69-year-old female. Patient is sitting in recliner and appears to be comfortable and in no acute distress. HEENT: Head is atraumatic, normocephalic. Pupils equal, round. Sclerae is anicteric. Oral mucous membranes are moist. No facial droop. NECK: Supple. No JVD. No lymphadenopathy. No thyromegaly. No carotid bruit heard. LUNGS: Clear to auscultation. No wheezes or rhonchi. No intercostal retractions. HEART: Regular rate and rhythm. No murmur. ABDOMEN: Soft. Bowel sounds are present. No masses. No tenderness. EXTREMITIES: No pedal edema. No calf tenderness. Dorsalis pedis +2 bilaterally. NEUROLOGICAL: Patient is awake, alert and oriented x3. Cranial nerves 2 through 12 are grossly intact. Strength 5 out of 5 for all 4 extremities. - Labs CBC & Chem 7: 10/11/19 05:52 10/11/19 05:52 Assessment and Plan Plan: 1. TIA secondary to left internal carotid artery stenosis. Consult with neurology appreciated. MRI pending, Valium for premedication. 2. Internal carotid artery stenosis, to be further evaluated. Consult with vascular surgery appreciated. Plan for outpatient angiogram. 3. Severe mitral regurgitation with scheduled surgery a week from at [facility] with Dr. Kayla Campos. Cardiology consult appreciated. If surgery in the 24-48 hours, hold Coumadin and start heparin. 4. Paroxysmal atrial fibrillation on chronic Coumadin. Cardiology consult appreciated. Continue Toprol XL 50 mg daily, flecainide 75 mg twice daily. Coumadin resumed, monitor INR. 5. Rheumatoid arthritis. Patient is normally on methotrexate 12.5 mg every week will be continued. Hold Simponi. 6. History of GERD. Continue Protonix. 7. Vitamin D deficiency. Continue supplementation. 8. 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 Hold Tymlos. 9. Recurrent depression. Continue Lexapro 10 mg daily. 10. DVT prophylaxis. Coumadin. Discharge plan: home in the next 24 hours Impression and plan of care have been directed as dictated by the signing physician. Juliette Terrazas nurse practitioner acting as scribe for signing physician.
--- NOTE | 2019-10-12 14:30 | P.PN ---
Subjective Progress Note Date: 10/12/19 This is a 69-year-old female patient with history of rheumatoid arthritis, hyperlipidemia, paroxysmal atrial fibrillation, mitral regurgitation. Patient had a recent hospitalization in February 2019 which time she presented with atrial fibrillation/flutter with RVR underwent ablation with Dr. Longoria on 2 separate occasions. Patient states she had done well until she again had atrial fibrillation in June that was of a different type within her previous. This was coming going for short periods. She underwent JOSE L, heart catheterization in August that found only mild coronary artery disease. She saw Dr. Kayla Campos and is scheduled for mitral valve replacement or repair a week from at [facility]. Patient states that she was talking to her neighbor and all of a sudden she was feeling dizzy and her speech was gibberish and slurred and she couldn't put out the words that she wanted to. She denies having any headache. Her symptoms lasted for about 45 minutes but she did have some residual dizziness. Patient denies any history of CVA, TIA. Patient had been seen in consultation yesterday by Dr. Jacinto. Patient was felt to be an acceptable risk to undergo anesthesia. We're waiting to hear from vascular surgery regarding the timing of surgery, depending on that Coumadin will be given. If the patient is going to have surgery in the next 24-48 hours we will continue heparin and not reinitiate the Coumadin. Patient had been seen by Dr. Rolle, the plan is for a scheduled cerebral angiogram tomorrow, pending that further recommendations will be made. Objective - Vital Signs Vital signs: Vital Signs Temp 98.7 F 10/12/19 12:00 Pulse 71 10/12/19 12:00 Resp 16 10/12/19 12:00 BP 116/68 10/12/19 12:00 Pulse Ox 96 10/12/19 12:00 Intake & Output 10/11/19 10/12/19 10/12/19 18:59 06:59 18:59 Intake Total 480 540 Output Total 475 Balance 480 65 Weight 62 kg Intake: Oral 480 540 Output: Urine 475 Other: Voiding Method Toilet Toilet Toilet # Voids 1 - Exam Gen: This is a 69-year-old female. Patient is resting in bed and appears to be comfortable and in no acute distress. HEENT: Head is atraumatic, normocephalic. Pupils equal, round. Sclerae is anicteric. Oral mucous membranes are moist. No facial droop. NECK: Supple. No JVD. No lymphadenopathy. No thyromegaly. No carotid bruit heard. LUNGS: Clear to auscultation. No wheezes or rhonchi. No intercostal retractions. HEART: Heart S1 S2 grade 4/6 pansystolic murmur is heard at the apex ABDOMEN: Soft. Bowel sounds are present. No masses. No tenderness. EXTREMITIES: No pedal edema. No calf tenderness. Dorsalis pedis +2 bilaterally. NEUROLOGICAL: Patient is awake, alert and oriented x3. Cranial nerves 2 through 12 are grossly intact. Strength 5 out of 5 for all 4 extremities. - Labs CBC & Chem 7: 10/11/19 05:52 10/11/19 05:52 Assessment and Plan Plan: Assessment and plan 1. TIA with secondary left internal carotid artery stenosis. 2. Preoperative clearance 3. Severe mitral regurgitation with scheduled surgery a week from at [facility] with Dr. Kayla Campos. Cardiology consult appreciated. If surgery in the 24-48 hours, hold Coumadin and start heparin. 4. Paroxysmal atrial fibrillation on chronic Coumadin. 5. Rheumatoid arthritis. 6. History of GERD. 7. Vitamin D deficiency. 8. 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 9. Recurrent depression. Plan Patient had her MRI performed, to more she scheduled for a cerebral angiogram, based on these findings further recommendations then will be made. Patient is an acceptable risk for surgery under anesthesia. We will continue to follow. DNP note has been reviewed, I agree with a documented findings and plan of care. Patient was seen and examined.
[2019-10-12] MEDS: ATORVASTATIN 80 MG TAB PO SCH (17:21)
--- NOTE | 2019-10-12 17:40 | P.PN ---
Progress Note - Text Progress Note Date: 10/12/19 SUBJECTIVE/INTERVAL EVENTS: No acute overnight events. Patient at baseline. Discussed in length with patient and brother present about the relationship between a. fib and stroke, and also ICA stenosis, stroke and open heart surgery. Vascular surgery planning for cerebral angiogram as there was a discrepancy between carotid US and CTA head and neck, and patient is pending open heart surgery at [facility]. PHYSICAL EXAMINATION: VITAL SIGNS: T 98.7 HR 71 RR 16 BP 116/68 O2 sat 96% on RA GEN.: NAD, pleasant and cooperative HEENT: NCAT, sclera without icterus NECK: Supple SKIN AND EXTREMITIES: Warm to touch, no edema NEURO: MENTAL STATUS: Patient alert and oriented to self, place, time. Able to name the current president. Speech fluent, able to name and repeat, following all commands readily. No right and left disorientation, neglect. CRANIAL NERVES II THROUGH XII: II: Pupils are equal and reactive to light symmetrically. Visual silva are intact. III, IV, : No ptosis. Extraocular movements full. No nystagmus. V: Facial sensation intact from V1-3. VII. No clear facial asymmetry. VIII: Hearing intact to finger rub bilaterally. IX, X: Symmetric palate elevation. XI: Shoulder shrug intact. XII: Tongue midline without fasciculation or atrophy. MOTOR: Normal bulk/tone. No pronator drift or tremor. Strength is 5/5 throughout all 4 extremities. SENSORY: Intact to light touch in all 4 extremities. Romberg is negative. REFLEXES: 2+ throughout. Toes are downgoing. COORDINATION: Finger to nose intact. No dysmetria. GAIT: Narrow-based and stable. Able to toe/heel/tandem walk DIAGNOSTIC TESTING: LABORATORY: WBC 6.5 Hgb 11.5 Platelet 200 PT 13.9 INR 1.4 Na 140 K 4.2 Cl 107 CO2 26 BUN 12 Cr 0.84 Glucose 80 AST 33 ALT 13 AlkPhos 59 Total cholesterol 217 LDL 157 HDL 42 TG 90 A1C 5.2 TSH 2.300 IMAGING: MRI brain w/o contrast 10/12/2019: no acute intracranial abnormality seen. Mild cerebral atrophy and moderate scattered burden of chronic small vessel ischemic disease CT Head w/o contrast 10/10/2019: Mild atrophy. No acute intracranial abnormality. CTA Head and Neck w/ and w/o contrast 10/10/2019: Probably more than 90% stenosis at the origin of L ICA. b/l plaque formation at the carotid artery bifurcation. Carotid Doppler 10/11/2019: Proximally 90% stenosis of L ICA is NOT demonstrated on ultrasound, but CTA neck is both more sensitive and specific. No hemodynamically significant stenosis in either carotid arterial system on US. JOSE L 08/18/2019: EF 55%. Severe mitral regurgitation. LA is moderately enlarged. No evidence of any PFO ASSESSMENT: 69 year-old woman with PMhx of a.fib, GERD, HLD, rheumatoid arthritis, L3/L4 compression fracture treated with kyphoplasty, L2 compression fracture no surgery, presented to [facility] for an episode of speech difficulty lasting ~15 minutes. Patient with risk factors for stroke, i.e. a.fib, HLD, smoking history, age and L ICA stenosis. MRI brain w/o contrast with no acute stroke. Dx TIA RECOMMENDATIONS: 1. c/w coumadin. patient also with MV regurgitation, coumadin shown to be superior compared to NOACs for valvular atrial fibrillation. discussed with patient about diet changes as INR low on admission 2. Atorvastatin 80mg qhs 3. Discussed with patient about stroke prevention guidelines. Medication compliance, hypertension/diabetes control, lifestyle changes including no smoking, drinking in moderation, losing weight, exercising, eating healthier 4. Patient needs to follow up with neurologist as outpatient with her 2-3 weeks of discharge 5. Discussed ED precautions: return to ED if having severe headache, nausea, vomiting, vision deficits, speech difficulty, facial asymmetry, weakness, numbness or tingling. 6. Neurology will sign off at this time. Please feel free to contact Neurology again if with additional questions or concerns.
[2019-10-12] MEDS ORDERED: TYMLOS SQ SCH (19:00)
[2019-10-12 22:58] VITALS: RESP 16
[2019-10-13] MEDS ORDERED: SODIUM CHLORIDE 0.9% 1,000 ML IV ONE (07:30)
[2019-10-13] MEDS ORDERED: MIDAZOLAM 2 MG/2 ML VIAL IV ONE (07:42)
[2019-10-13] MEDS ORDERED: fentaNYL (PF) 50 MCG/ML 2 ML AMP IV ONE (07:42)
[2019-10-13] MEDS ORDERED: LIDOCAINE 1% INJ 10MG/ML (20 ML MDV) SQ ONE (07:44)
[2019-10-13] MEDS ORDERED: IOPAMIDOL-250 100ML BTL INTRAARTER ONE (08:08)
--- NOTE | 2019-10-13 08:33 | P.OP ---
Date of Procedure: 10/13/19 Description of Procedure: Preoperative diagnosis: [Left internal carotid artery stenosis, Discordant CT angiogram and carotid Doppler] Postoperative diagnosis: Same, type III aortic arch, approximately 50% left ICA stenosis Procedure: [Ultrasound-guided right common femoral artery access, angiogram of the aortic arch, selective brachiocephalic angiogram, selective left carotid angiogram, 37 minutes of moderate conscious sedation] Surgeon: Arminda Rolle D.O. EBL: []Minimal IV fluids: [Not measured] Urine output: [Not measured] Drains: [None] Complications: [None immediately apparent. Neuro motor intact] Condition: [Stable to room] Operative indication and findings: [The patient is a 69-year-old female who had questional symptoms of a TIA earlier in the week area she underwent a CT angiogram of the neck which revealed somewhat close to 90% stenosis per their radiologic read. She had since resolved her symptoms. An MRI was performed and was negative. A carotid ultrasound was performed and revealed a peak systolic velocity that correlated with closer to 50% stenosis. Given the patient is going to be undergoing a cardiac surgery in the near future, it was decided that the gold standard cerebral angiogram will be performed in order to fully evaluate the carotid arteries. Risks and benefits were discussed. She seemingly understood and was willing to proceed.] Procedure in detail: [The patient was taken to the operative suite and placed in supine position. Bilateral groins were prepped and draped in usual sterile fashion. A preprocedure timeout was performed, all parties were in agreement. The ultrasound was utilized and the skin overlying the common femoral artery was anesthetized 1% lidocaine plain. Using a multipurpose needle of the artery was cannulated. A J-wire was placed up into the aortic arch followed by a pigtail catheter. An anterior was performed. That point a guidewire was placed and a JB2 catheter was used to access the brachiocephalic for selective angiogram followed by the left carotid for a selective angiogram. Catheters and wires were removed. The sheath was removed and pressure was held until hemostasis was adequate. Angiographic findings. The patient has a type III aortic arch. All great vessels off the arch are patent without evidence of significant disease on selective of the brachiocephalic is patent without evidence of significant disease the takeoff of the subclavian is patent without significant disease the common internal/external as well as the vertebral arteries are patent without significant disease. On the left there is a mild amount of calcium at the carotid bulb. The common internal and external carotid arteries are widely patent otherwise. By measurements the stenosis is closer to 50%.
[2019-10-13] MEDS: PANTOPRAZOLE 40 MG TABLET PO SCH (09:30)
[2019-10-13] MEDS: METOPROLOL SUCCINATE (ER) 50 MG TAB.ER.24H PO SCH (09:30)
[2019-10-13] MEDS: CHOLECALCIFEROL 1,000 UNIT TAB PO SCH (09:30)
[2019-10-13] MEDS: ATORVASTATIN 80 MG TAB PO SCH (09:30)
[2019-10-13] MEDS: FLECAINIDE 50 MG TAB PO SCH (09:32)
--- NOTE | 2019-10-13 10:45 | IR ---
EXAMINATION TYPE: IR angio carotid cereb BILAT DATE OF EXAM: 10/13/2019 COMPARISON: NONE HISTORY: Abnormal CTA, TIA, neuro deficit Fluoroscopy support supplied to the referring clinician. See dictated report from vascular surgery, 101 intraoperative images document the procedure
[2019-10-13 12:21] VITALS: TEMP 98
--- NOTE | 2019-10-13 13:55 | P.PN ---
Subjective Progress Note Date: 10/13/19 This is a 69-year-old female patient with history of rheumatoid arthritis, hyperlipidemia, paroxysmal atrial fibrillation, mitral regurgitation. Patient had a recent hospitalization in February 2019 which time she presented with atrial fibrillation/flutter with RVR underwent ablation with Dr. Longoria on 2 separate occasions. Patient states she had done well until she again had atrial fibrillation in June that was of a different type within her previous. This was coming going for short periods. She underwent JOSE L, heart catheterization in August that found only mild coronary artery disease. She saw Dr. Kayla Campos and is scheduled for mitral valve replacement or repair a week from at [facility]. Patient states that she was talking to her neighbor and all of a sudden she was feeling dizzy and her speech was gibberish and slurred and she couldn't put out the words that she wanted to. She denies having any headache. Her symptoms lasted for about 45 minutes but she did have some residual dizziness. Patient denies any history of CVA, TIA. Patient had been seen in consultation yesterday by Dr. Jacinto. Patient was felt to be an acceptable risk to undergo anesthesia. We're waiting to hear from vascular surgery regarding the timing of surgery, depending on that Coumadin will be given. If the patient is going to have surgery in the next 24-48 hours we will continue heparin and not reinitiate the Coumadin. Patient had been seen by Dr. Rolle, the plan is for a scheduled cerebral angiogram tomorrow, pending that further recommendations will be made. Oct 13 2019 Patient underwent cerebral angiography with subsequent angiogram of the aortic arch, brachiocephalic angiogram, selective left carotid angiogram, it revealed approximately 50% stenosis in the left ICA. Patient does not require intervention at this time on the left internal carotid artery. Patient feels well overall denies any chest discomfort and breathing is stable. Anticipating discharge home later today. She has a follow-up appointment with the surgeon scheduled within the next one week to 10 days. Objective - Vital Signs Vital signs: Vital Signs Temp 98 F 10/13/19 12:00 Pulse 74 10/13/19 06:49 Resp 16 10/13/19 12:00 BP 112/64 10/13/19 12:00 Pulse Ox 97 10/13/19 12:00 Intake & Output 10/12/19 10/13/19 10/13/19 18:59 06:59 18:59 Intake Total 450 240 340 Balance 450 240 340 Weight 59.7 kg Intake: IV 100 Oral 450 240 240 Other: Voiding Method Toilet Toilet # Voids 1 2 - Exam Gen: This is a 69-year-old female. Patient is resting in bed and appears to be comfortable and in no acute distress. HEENT: Head is atraumatic, normocephalic. Pupils equal, round. Sclerae is anicteric. Oral mucous membranes are moist. No facial droop. NECK: Supple. No JVD. No lymphadenopathy. No thyromegaly. No carotid bruit heard. LUNGS: Clear to auscultation. No wheezes or rhonchi. No intercostal retractio ns. HEART: Heart S1 S2 grade 4/6 pansystolic murmur is heard at the apex ABDOMEN: Soft. Bowel sounds are present. No masses. No tenderness. EXTREMITIES: No pedal edema. No calf tenderness. Dorsalis pedis +2 bilaterally. NEUROLOGICAL: Patient is awake, alert and oriented x3. Cranial nerves 2 through 12 are grossly intact. Strength 5 out of 5 for all 4 extremities. - Labs CBC & Chem 7: 10/11/19 05:52 10/11/19 05:52 Assessment and Plan Plan: Assessment and plan 1. TIA with secondary left internal carotid artery stenosis. 2. Preoperative clearance 3. Severe mitral regurgitation with scheduled surgery a week from at [facility] with Dr. Kayla Campos. Cardiology consult appreciated. If surgery in the 24-48 hours, hold Coumadin and start heparin. 4. Paroxysmal atrial fibrillation on chronic Coumadin. 5. Rheumatoid arthritis. 6. History of GERD. 7. Vitamin D deficiency. 8. 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 9. Recurrent depression. Plan The patient underwent an angiogram today which revealed 50% left internal carotid artery stenosis. She will be discharged home today, she will follow-up at [facility] in a week to 10 days for her mitral surgery. DNP note has been reviewed, I agree with a documented findings and plan of care. Patient was seen and examined.
[2019-10-13 15:51] VITALS: BP 112/64; PULSE 71
[2019-10-13] MEDS ORDERED: WARFARIN 5 MG TAB PO SCH (18:00)
--- NOTE | 2019-10-14 08:38 | P.DS ---
Providers Date of admission: 10/11/19 19:49 Expected date of discharge: 10/13/19 Attending physician: Courtney Carnes Consults: 10/10/19 20:38 Consult Physician Routine Consulting Provider: Arminda Rolle Consult Reason/Comments: TIA, internal carotid artery stenosis Do you want consulting provider notified?: Yes Consult Physician Routine Consulting Provider: Vannessa Ansari Consult Reason/Comments: TIA Do you want consulting provider notified?: Yes 10/11/19 09:28 Consult Physician Routine Consulting Provider: Vince Jacinto Consult Reason/Comments: Afib/ cardiac surgical clearance Do you want consulting provider notified?: Yes Primary care physician: [facility] Course: This is a 69-year-old female patient of Dr. Esteban with history of rheumatoid arthritis, hyperlipidemia, paroxysmal atrial fibrillation, mitral regurgitation. Patient had a recent hospitalization in February 2019 which time she presented with atrial fibrillation/flutter with RVR underwent ablation with Dr. Longoria on 2 separate occasions. Patient states she had done well until she again had atrial fibrillation in June that was of a different type within her previous. This was coming going for short periods. She underwent JOSE L, heart catheterization in August that found only mild coronary artery disease. She saw Dr. Kayla Campos and is scheduled for mitral valve replacement or repair a week from at [facility]. Patient states that she was talking to her neighbor and all of a sudden she was feeling dizzy and her speech was gibberish and slurred and she couldn't put out the words that she wanted to. She denies having any headache. Her symptoms lasted for about 45 minutes but she did have some residual dizziness. Patient denies any history of CVA, TIA. Patient presented to [facility] emergency center for evaluation and NIH score 0. Hemoglobin 9 otherwise CBC and CMP unremarkable. INR 1.6 Blood sugar 100. Troponin negative. TSH 2.300. Triglycerides 90, cholesterol 217, LDL 157, HDL 42. Urinalysis negative for infection. Patient was afebrile, heart rate 73, initial blood pressure 106/73. EKG was a sinus rhythm with no acute ST changes. CAT scan of the brain showed no acute intracranial abnormality. CT angiogram of the brain was negative. Probable 90% stenosis of the left internal carotid artery. Bilateral plaque formation at the carotid artery bifurcations. Chest x-ray showed no acute cardiopulmonary process. Diffuse chronic interstitial prominence likely related to background fibrosis. Carotid ultrasound revealed 90% stenosis of the left internal carotid artery is not redemonstrated on ultrasound. No significant hemodynamic stenosis in either carotid system. Patient admitted to the cardiac stepdown unit and consults with cardiology and vascular surgery. 10/12: Patient denies any new complaints. She denies any difficulty with her speech or weakness, no dizziness. Patient is seen by vascular surgery with plan for outpatient angiogram. Patient is also been seen by neurology with plan for MRI of the brain, echocardiogram, permissive hypertension for 24-48 hours, continue Coumadin, atorvastatin. Hemoglobin A1c 5.2. Patient's MRI is scheduled for today. Patient has been afebrile, heart rate 71, blood pressure 108/59, pulse ox 97% on room air. Anticipate probable discharge in the next 24 hours. 10/13: Patient underwent angiographically angiogram of the aortic arch, brachial cephalic angiogram, selective left carotid angiogram revealed 50% stenosis in the left ICA. No intervention is necessary at this time for the carotid artery disease. He is having any chest pain or shortness of breath. Discussed statin with the patient and she is requesting that Lipitor be changed to Crestor which we will do. Patient will be discharged home today in stable condition. Discharge diagnoses: 1. TIA. 2. Internal carotid artery stenosis at 50%. 3. Severe mitral regurgitation with scheduled surgery a week from at [facility] with Dr. Kayla Campos. 4. Paroxysmal atrial fibrillation on chronic Coumadin. 5. Rheumatoid arthritis. 6. History of GERD. 7. Vitamin D deficiency. 8. 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 9. Recurrent depression. 10. Hyperlipidemia. Discharge plan: home Impression and plan of care have been directed as dictated by the signing physician. Juliette Terrazas nurse practitioner acting as scribe for signing physician. Patient Condition at Discharge: Good Plan - Discharge Summary Discharge Rx Participant: No New Discharge Prescriptions: New Rosuvastatin Calcium [Crestor] 40 mg PO DAILY #30 tab Continue Cholecalciferol [Vitamin D3 (25 Mcg = 1000 Iu)] 1,000 unit PO DAILY Pantoprazole Sodium [Protonix] 40 mg PO DAILY Abaloparatide [Tymlos] 80 mcg SQ DAILY Flecainide [Tambocor] 75 mg PO BID Multivitamins, Thera [Multivitamin (formulary)] 1 tab PO DAILY Methotrexate Sodium [Methotrexate] 12.5 mg PO LITTLEJOHN Cider Vinegar [Apple Cider Vinegar] 300 mg PO DAILY Escitalopram [Lexapro] 10 mg PO DAILY Simponi 100 mg SQ Q56D Metoprolol Succinate (ER) [Toprol XL] 50 mg PO DAILY Changed Warfarin [Coumadin] 7.5 mg PO WEFR #0 Warfarin [Coumadin] 5 mg PO SUMOTUTHSA #0 Discharge Medication List Cholecalciferol [Vitamin D3 (25 Mcg = 1000 Iu)] 1,000 unit PO DAILY 02/23/14 [History] Pantoprazole Sodium [Protonix] 40 mg PO DAILY 06/29/14 [History] Abaloparatide [Tymlos] 80 mcg SQ DAILY 02/15/19 [History] Flecainide [Tambocor] 75 mg PO BID 03/24/19 [History] Multivitamins, Thera [Multivitamin (formulary)] 1 tab PO DAILY 06/23/19 [History] Cider Vinegar [Apple Cider Vinegar] 300 mg PO DAILY 07/20/19 [History] Methotrexate Sodium [Methotrexate] 12.5 mg PO LITTLEJOHN 07/20/19 [History] Escitalopram [Lexapro] 10 mg PO DAILY 10/11/19 [History] Metoprolol Succinate (ER) [Toprol XL] 50 mg PO DAILY 10/12/19 [History] Simponi 100 mg SQ Q56D 10/12/19 [History] Rosuvastatin Calcium [Crestor] 40 mg PO DAILY #30 tab 10/13/19 [Rx] Warfarin [Coumadin] 5 mg PO SUMOTUTHSA #0 10/13/19 [Rx] Warfarin [Coumadin] 7.5 mg PO WEFR #0 10/13/19 [Rx] Follow up Appointment(s)/Referral(s): Les Esteban MD [Primary Care Provider] - 1 Week (before wed Office is closed. Please call to schedule appointment) Arminda Rolle DO [STAFF PHYSICIAN] - 11/03/19 9:45 am ([place] Office [phone] Paper work to be sent in the mail) Dinah Loya MD [STAFF PHYSICIAN] - 1 Week (Office to call) Patient Instructions/Handouts: Transient Ischemic Attack (DC) Activity/Diet/Wound Care/Special Instructions: Open heart 10/21 at [facility] with Discharge Disposition: HOME SELF-CARE
[2019-10-15] MEDS ORDERED: WARFARIN 2 MG TAB PO SCH (18:00)
== END 2019-10-13 15:51 | disposition home or self-care (01) | DRG 68 ==
LOC: EC 13:30 → 3SCARD 20:37 → INTOOBSV 20:37 → UNDOADMOB 20:37 → 3SCARD 20:37 → INTOOBSV 10-11 19:49 → OBSVTOIN 10-11 19:49
PROVIDERS: ADMIT Internal Medicine; ATTEND Internal Medicine
PROC: B3111ZZ Fluoroscopy of Right Brachiocephalic-Subclavian Artery using Low Osmolar Contrast (ICD-10-PCS; principal; 2019-10-13 07:30)
PROC: B4101ZZ Fluoroscopy of Abdominal Aorta using Low Osmolar Contrast (ICD-10-PCS; principal; 2019-10-13 07:30)
DX: I65.22 Occlusion and stenosis of left carotid artery (principal); I48.19 Other persistent atrial fibrillation; M48.56XA Collapsed vertebra, not elsewhere classified, lumbar region, initial encounter for fracture; F33.9 Major depressive disorder, recurrent, unspecified; I34.0 Nonrheumatic mitral (valve) insufficiency; R29.700 NIHSS score 0; I10 Essential (primary) hypertension; I25.10 Atherosclerotic heart disease of native coronary artery without angina pectoris; E55.9 Vitamin D deficiency, unspecified; M81.0 Age-related osteoporosis without current pathological fracture; M19.90 Unspecified osteoarthritis, unspecified site; E78.5 Hyperlipidemia, unspecified; K21.9 Gastro-esophageal reflux disease without esophagitis; M06.9 Rheumatoid arthritis, unspecified; Z98.42 Cataract extraction status, left eye; Z98.41 Cataract extraction status, right eye; Z96.1 Presence of intraocular lens; Z79.899 Other long term (current) drug therapy; Z79.01 Long term (current) use of anticoagulants; Z87.891 Personal history of nicotine dependence; Z82.3 Family history of stroke; Z82.0 Family history of epilepsy and other diseases of the nervous system; Z80.42 Family history of malignant neoplasm of prostate; Z83.3 Family history of diabetes mellitus; Z82.49 Family history of ischemic heart disease and other diseases of the circulatory system
CPT/HCPCS: 36221; 36223; 36415; 70450; 70496; 70498; 70551; 71046; 76937; 80053; 80061; 81003; 82550; 83036; 84443; 84484; 85025; 85610; 85730; 93005; 93880; 94010; 99285

== ENCOUNTER 2019-11-28 07:40 | Inpatient (IN) | payer MEDICARE ==
[2019-11-28] MEDS ORDERED: MORPHINE SULFATE 4 MG/ML SYRINGE IV STA (07:48)
[2019-11-28] MEDS ORDERED: ACETAMINOPHEN TAB 500 MG TAB PO STA (07:50)
[2019-11-28] MEDS ORDERED: SODIUM CHLORIDE 0.9% 500 ML 500 ML IV ONE ×2 (07:51→10:58)
[2019-11-28] MEDS: SODIUM CHLORIDE 0.9% 500 ML 500 ML IV STA ×2 (08:11→09:45)
[2019-11-28] MEDS ORDERED: VANCOMYCIN IV PER PHARMACY 1 EACH MISC MISCELLANE PRN (08:13)
[2019-11-28] MEDS ORDERED: PIPERACILLIN-TAZOBACTAM 3.375 GM in SODIUM CHLORIDE 0.9% 100 ML IVPB STA (08:13)
[2019-11-28] MEDS ORDERED: VANCOMYCIN 1,000 MG in SODIUM CHLORIDE 0.9% 250 ML IVPB STA (08:15)
--- NOTE | 2019-11-28 08:20 | ED ---
General Adult HPI - General Chief complaint: Back Pain/Injury Stated complaint: back pain Time Seen by Provider: 11/28/19 07:48 Source: patient, EMS Mode of arrival: EMS Limitations: no limitations - History of Present Illness Initial comments: 69-year-old female presents for evaluation of fever, bilateral upper back pain and vomiting. Patient is status post sternotomy for mitral valve replacement. Patient states this was a bovine replacement. This was performed at [facility]. This was performed on November 14. Patient states that in the p ostoperative. They had evaluated her for fever and possible infection. She is uncertain of what the source of this infection was. She has history of atrial fibrillation currently on Eliquis. Denies cough, denies URI symptoms. Denies abdominal pain. She's had several episodes of vomiting. Denies dysuria or hematuria. Denies cough or dyspnea. Denies any incisional drainage or purulence. - Related Data Home Medications Medication Instructions Recorded Confirmed Cholecalciferol [Vitamin D3 (25 1,000 unit PO DAILY 02/23/14 10/12/19 Mcg = 1000 Iu)] Pantoprazole Sodium [Protonix] 40 mg PO DAILY 06/29/14 10/11/19 Abaloparatide [Tymlos] 80 mcg SQ DAILY 02/15/19 10/12/19 Flecainide [Tambocor] 75 mg PO BID 03/24/19 10/11/19 Multivitamins, Thera [Multivitamin 1 tab PO DAILY 06/23/19 10/11/19 (formulary)] Cider Vinegar [Apple Cider Vinegar] 300 mg PO DAILY 07/20/19 10/11/19 Methotrexate Sodium [Methotrexate] 12.5 mg PO LITTLEJOHN 07/20/19 10/11/19 Escitalopram [Lexapro] 10 mg PO DAILY 10/11/19 10/11/19 Metoprolol Succinate (ER) [Toprol 50 mg PO DAILY 10/12/19 10/12/19 XL] Simponi 100 mg SQ Q56D 10/12/19 10/12/19 Previous Rx's Medication Instructions Recorded Rosuvastatin Calcium [Crestor] 40 mg PO DAILY #30 tab 10/13/19 Warfarin [Coumadin] 5 mg PO SUMOTUTHSA #0 10/13/19 Warfarin [Coumadin] 7.5 mg PO WEFR #0 10/13/19 Allergies Allergy/AdvReac Type Severity Reaction Status Date / Time No Known Allergies Allergy Verified 11/28/19 07:45 Review of Systems ROS Statement: Those systems with pertinent positive or pertinent negative responses have been documented in the HPI. ROS Other: All systems not noted in ROS Statement are negative. Past Medical History Past Medical History: Atrial Fibrillation, GERD/Reflux, Hyperlipidemia, Rheumatoid Arthritis (RA) Additional Past Medical History / Comment(s): Compression fracture of L4 and L3 recently treated with kyphoplasty. Compression fracture L2 which is being mike jenny conservatively compression fx L3-sx done. PAST [employer] HISTORY: She has no history of STDs. History of Any Multi-Drug Resistant Organisms: None Reported Past Surgical History: Back Surgery, Cardiac Ablation, Orthopedic Surgery, Tonsillectomy Additional Past Surgical History / Comment(s): CATARATS LENS IMPLANTS, RT FOOT REMOVED 3 NODULES, right foot bone removed 05/18/18. Colonoscopy 2016(2nd) to repeat in 5 years. Back surgery 07/15/2018 and 07/22/2018. Cardiac ablation surgery, epidural steroid injections for back pain, MITRAL VALVE REPLACEMENT Past Anesthesia/Blood Transfusion Reactions: No Reported Reaction Additional Past Anesthesia/Blood Transfusion Reaction / Comment(s): VERTIGO ON A CRUISE Past Psychological History: No Psychological Hx Reported Smoking Status: Former smoker Past Alcohol Use History: None Reported Past Drug Use History: None Reported - Past Family History Father Family Medical History: Cancer, Neurologic Disorder Additional Family Medical History / Comment(s): Prostate cancer. ARRYTHMIA, CORNEAL IMPLANTS, LT EYE BLIND , PARKINSONS, FATHER HAS Mother Family Medical History: Cancer, Coronary Artery Disease (CAD), Diabetes Mellitus, Myocardial Infarction ([place]) Additional Family Medical History / Comment(s): Uterine cancer. CATARACTS, DETATCHED RETINA, GLAUCOMA, MACULAR DEGENERATION, STENTS, BOWEL RESECTION FOR DIVERTICULITIS, KATINA KNEE REPLACEMENT. recently Brother(s) Family Medical History: CVA/TIA Additional Family Medical History / Comment(s): stroke at 65 Sister(s) Family Medical History: No Reported History General Exam Limitations: no limitations General appearance: alert Head exam: Present: atraumatic, normocephalic Eye exam: Present: normal appearance, PERRL ENT exam: Present: mucous membranes dry Neck exam: Present: normal inspection. Absent: tenderness Respiratory exam: Present: decreased breath sounds, other (Midline sternotomy incision, clean dry and intact, no erythema or signs of infection). Absent: respiratory distress, wheezes Cardiovascular Exam: Present: normal rhythm, tachycardia, systolic murmur GI/Abdominal exam: Present: soft. Absent: distended, tenderness, guarding, rebound Extremities exam: Present: normal inspection, normal capillary refill. Absent: calf tenderness Back exam: Present: normal inspection, full ROM Neurological exam: Present: alert, oriented X3. Absent: motor sensory deficit Skin exam: Present: warm, dry, intact Course Vital Signs 11/28/19 11/28/19 11/28/19 07:45 09:21 09:36 Temperature 103.2 F H 98.4 F Pulse Rate 147 H 120 H 111 H Respiratory 18 18 18 Rate Blood Pressure 140/81 103/56 89/55 O2 Sat by Pulse 98 97 100 Oximetry 11/28/19 11/28/19 11/28/19 09:56 10:37 10:58 Temperature 99.5 F Pulse Rate 112 H 112 H 110 H Respiratory 18 16 18 Rate Blood Pressure 85/51 84/54 92/52 O2 Sat by Pulse 100 99 98 Oximetry 11/28/19 11/28/19 11:01 11:12 Temperature Pulse Rate 108 H 108 H Respiratory 16 18 Rate Blood Pressure 90/54 92/56 O2 Sat by Pulse 98 98 Oximetry - Reevaluation(s) Reevaluation #1: 11/28/19 10:20 Case is discussed with [facility] transfer team including the vp medical at [facility], all transfer traffic has been stopped. They are not accepting any transfers under any circumstances. EKG Findings - EKG Comments: EKG Findings:: EKG: Sinus tachycardia rate of 151, right bundle branch block, AR interval 128, QRS duration 110, QTC 542. History of right bundle branch block Medical Decision Making - Medical Decision Making 69-year-old female with recent mitral valve replacement presenting with fever, tachycardia. Patient's denies any URI symptoms, no cough or dyspnea, no dysuria. Workup in the emergency department reveals significant leukocytosis 22.6 which is predominantly neutrophils, hemoglobin is 11.8, mild lactic acidosis 2.1. She has a mild transaminitis and elevated alkaline phosphatase. Chest x-ray performed shows minimal pulmonary edema, no focal pneumonia. Ultrasound performed is negative for acute cholecystitis which was obtained secondary to transaminitis. She has troponin elevation is 0.45 and she is anticoagulated. I suspect this is postoperative. There is concern for endocarditis given his recent surgery and negative workup otherwise. Blood cultures are pending. I discussed the case with her primary care physician Dr. Esteban who is able to evaluate her in the emergency department my initial plan was for transfer however the transferring facility [facility] is not accepting any patients under any circumstances at this time. She will be admitted to this institution for IV antibiotics, both infectious disease and cardiology and placed on consult, infectious disease has been consulted and Dr. Noyola recommending adding 2 g of ceftriaxone. This has been added in the emergency department. She had already initiated on Zosyn and vancomycin. Case discussed with Dr. Esteban, Dr. Snow, Dr. Abel. Diagnosis: Sepsis, concern for bacteremia, concern for endocarditis. - Lab Data Result diagrams: 11/28/19 08:00 11/28/19 08:00 Lab Results 11/28/19 11/28/19 11/28/19 Range/Units 08:00 08:00 08:00 WBC 22.6 H (3.8-10.6) k/uL RBC 3.85 (3.80-5.40) m/uL Hgb 11.8 (11.4-16.0) gm/dL Hct 36.9 (34.0-46.0) % MCV 95.8 (80.0-100.0) fL MCH 30.7 (25.0-35.0) pg MCHC 32.0 (31.0-37.0) g/dL RDW 14.7 (11.5-15.5) % Plt Count 354 (150-450) k/uL Neutrophils % 90 % Lymphocytes % 4 % Monocytes % 4 % Eosinophils % 1 % Basophils % 0 % Neutrophils # 20.3 H (1.3-7.7) k/uL Lymphocytes # 0.9 L (1.0-4.8) k/uL Monocytes # 0.9 (0-1.0) k/uL Eosinophils # 0.3 (0-0.7) k/uL Basophils # 0.1 (0-0.2) k/uL PT 11.2 (9.0-12.0) sec INR 1.1 (<1.2) APTT 23.3 (22.0-30.0) sec Sodium 137 (137-145) mmol/L Potassium 4.4 (3.5-5.1) mmol/L Chloride 101 (98-107) mmol/L Carbon Dioxide 21 L (22-30) mmol/L Anion Gap 15 mmol/L BUN 19 H (7-17) mg/dL Creatinine 0.67 (0.52-1.04) mg/dL Est GFR (CKD-EPI)AfAm >90 (>60 ml/min/1.73 sqM) Est GFR (CKD-EPI)NonAf 90 (>60 ml/min/1.73 sqM) Glucose 111 H (74-99) mg/dL Plasma Lactic Acid Philip (0.7-2.0) mmol/L Calcium 9.4 (8.4-10.2) mg/dL Magnesium 1.9 (1.6-2.3) mg/dL Total Bilirubin 0.8 (0.2-1.3) mg/dL AST 53 H (14-36) U/L ALT 45 H (4-34) U/L Alkaline Phosphatase 160 H (38-126) U/L Troponin I (0.000-0.034) ng/mL NT-Pro-B Natriuret Pep pg/mL Total Protein 8.0 (6.3-8.2) g/dL Albumin 4.3 (3.5-5.0) g/dL Lipase 423 H (23-300) U/L Urine Color Urine Appearance (Clear) Urine pH (5.0-8.0) Ur Specific [place] (1.001-1.035) Urine Protein (Negative) Urine Glucose (UA) (Negative) Urine Ketones (Negative) Urine Blood (Negative) Urine Nitrite (Negative) Urine Bilirubin (Negative) Urine Urobilinogen (<2.0) mg/dL Ur Leukocyte Esterase (Negative) Urine RBC (0-5) /hpf Urine WBC (0-5) /hpf Ur Squamous Epith Cells (0-4) /hpf Urine Mucus (None) /hpf Influenza Type A RNA (Not Detectd) Influenza Type B (PCR) (Not Detectd) 11/28/19 11/28/19 11/28/19 Range/Units 08:00 08:00 08:00 WBC (3.8-10.6) k/uL RBC (3.80-5.40) m/uL Hgb (11.4-16.0) gm/dL Hct (34.0-46.0) % MCV (80.0-100.0) fL MCH (25.0-35.0) pg MCHC (31.0-37.0) g/dL RDW (11.5-15.5) % Plt Count (150-450) k/uL Neutrophils % % Lymphocytes % % Monocytes % % Eosinophils % % Basophils % % Neutrophils # (1.3-7.7) k/uL Lymphocytes # (1.0-4.8) k/uL Monocytes # (0-1.0) k/uL Eosinophils # (0-0.7) k/uL Basophils # (0-0.2) k/uL PT (9.0-12.0) sec INR (<1.2) APTT (22.0-30.0) sec Sodium (137-145) mmol/L Potassium (3.5-5.1) mmol/L Chloride (98-107) mmol/L Carbon Dioxide (22-30) mmol/L Anion Gap mmol/L BUN (7-17) mg/dL Creatinine (0.52-1.04) mg/dL Est GFR (CKD-EPI)AfAm (>60 ml/min/1.73 sqM) Est GFR (CKD-EPI)NonAf (>60 ml/min/1.73 sqM) Glucose (74-99) mg/dL Plasma Lactic Acid Philip 2.1 H* (0.7-2.0) mmol/L Calcium (8.4-10.2) mg/dL Magnesium (1.6-2.3) mg/dL Total Bilirubin (0.2-1.3) mg/dL AST (14-36) U/L ALT (4-34) U/L Alkaline Phosphatase (38-126) U/L Troponin I 0.455 H* (0.000-0.034) ng/mL NT-Pro-B Natriuret Pep 1170 pg/mL Total Protein (6.3-8.2) g/dL Albumin (3.5-5.0) g/dL Lipase (23-300) U/L Urine Color Urine Appearance (Clear) Urine pH (5.0-8.0) Ur Specific [place] (1.001-1.035) Urine Protein (Negative) Urine Glucose (UA) (Negative) Urine Ketones (Negative) Urine Blood (Negative) Urine Nitrite (Negative) Urine Bilirubin (Negative) Urine Urobilinogen (<2.0) mg/dL Ur Leukocyte Esterase (Negative) Urine RBC (0-5) /hpf Urine WBC (0-5) /hpf Ur Squamous Epith Cells (0-4) /hpf Urine Mucus (None) /hpf Influenza Type A RNA (Not Detectd) Influenza Type B (PCR) (Not Detectd) 11/28/19 11/28/19 Range/Units 09:00 09:30 WBC (3.8-10.6) k/uL RBC (3.80-5.40) m/uL Hgb (11.4-16.0) gm/dL Hct (34.0-46.0) % MCV (80.0-100.0) fL MCH (25.0-35.0) pg MCHC (31.0-37.0) g/dL RDW (11.5-15.5) % Plt Count (150-450) k/uL Neutrophils % % Lymphocytes % % Monocytes % % Eosinophils % % Basophils % % Neutrophils # (1.3-7.7) k/uL Lymphocytes # (1.0-4.8) k/uL Monocytes # (0-1.0) k/uL Eosinophils # (0-0.7) k/uL Basophils # (0-0.2) k/uL PT (9.0-12.0) sec INR (<1.2) APTT (22.0-30.0) sec Sodium (137-145) mmol/L Potassium (3.5-5.1) mmol/L Chloride (98-107) mmol/L Carbon Dioxide (22-30) mmol/L Anion Gap mmol/L BUN (7-17) mg/dL Creatinine (0.52-1.04) mg/dL Est GFR (CKD-EPI)AfAm (>60 ml/min/1.73 sqM) Est GFR (CKD-EPI)NonAf (>60 ml/min/1.73 sqM) Glucose (74-99) mg/dL Plasma Lactic Acid Philip (0.7-2.0) mmol/L Calcium (8.4-10.2) mg/dL Magnesium (1.6-2.3) mg/dL Total Bilirubin (0.2-1.3) mg/dL AST (14-36) U/L ALT (4-34) U/L Alkaline Phosphatase (38-126) U/L Troponin I (0.000-0.034) ng/mL NT-Pro-B Natriuret Pep pg/mL Total Protein (6.3-8.2) g/dL Albumin (3.5-5.0) g/dL Lipase (23-300) U/L Urine Color Yellow Urine Appearance Clear (Clear) Urine pH 7.0 (5.0-8.0) Ur Specific [place] 1.024 (1.001-1.035) Urine Protein 1+ H (Negative) Urine Glucose (UA) Negative (Negative) Urine Ketones Negative (Negative) Urine Blood Negative (Negative) Urine Nitrite Negative (Negative) Urine Bilirubin Negative (Negative) Urine Urobilinogen <2.0 (<2.0) mg/dL Ur Leukocyte Esterase Trace H (Negative) Urine RBC 2 (0-5) /hpf Urine WBC 5 (0-5) /hpf Ur Squamous Epith Cells <1 (0-4) /hpf Urine Mucus Rare H (None) /hpf Influenza Type A RNA Not Detected (Not Detectd) Influenza Type B (PCR) Not Detected (Not Detectd) Critical Care Time Critical Care Time: Yes Total Critical Care Time: 35 Disposition Clinical Impression: Mitral valve disease, Sepsis, H/O mitral valve replacement Disposition: ADMITTED IP TO THIS [facility] Condition: Serious Is patient prescribed a controlled substance at d/c from ED?: No Referrals: Les Esteban MD [Primary Care Provider] - 1-2 days Decision to Admit Reason: Admit from EC Decision Date: 11/28/19 Decision Time: 10:40
[2019-11-28 08:24] LABS: Basophils # (A) 0.1 k/uL (0-0.2); Basophils % (A) 0 %; Eosinophils # (A) 0.3 k/uL (0-0.7); Eosinophils % (A) 1 %; HCT 36.9 % (34.0-46.0); HGB 11.8 gm/dL (11.4-16.0); Lymphocytes # (A) 0.9 k/uL (1.0-4.8); Lymphocytes % (A) 4 %; MCH 30.7 pg (25.0-35.0); MCV 95.8 fL (80.0-100.0); Mean Platelet Volume 7.1; Monocytes # (A) 0.9 k/uL (0-1.0); Monocytes % (A) 4 %; Neutrophils # (A) 20.3 k/uL (1.3-7.7); Neutrophils % (A) 90 %; Platelet Count 354 k/uL (150-450); RBC 3.85 m/uL (3.80-5.40); RDW 14.7 % (11.5-15.5); WBC 22.6 k/uL (3.8-10.6)
[2019-11-28 08:32] LABS: ALT 45 U/L (4-34); AST 53 U/L (14-36); African American GFR (CKD) >90 (>60 ml/min/1.73 sqM); Albumin 4.3 g/dL (3.5-5.0); Alkaline Phosphatase 160 U/L (38-126); Anion Gap 15 mmol/L; Blood Urea Nitrogen 19 mg/dL (7-17); Calcium 9.4 mg/dL (8.4-10.2); Carbon Dioxide 21 mmol/L (22-30); Chloride 101 mmol/L (98-107); Glucose 111 mg/dL (74-99); Magnesium 1.9 mg/dL (1.6-2.3); Non-African American GFR(CKD) 90 (>60 ml/min/1.73 sqM); Potassium 4.4 mmol/L (3.5-5.1); Sodium 137 mmol/L (137-145); Total Bilirubin 0.8 mg/dL (0.2-1.3)
--- NOTE | 2019-11-28 08:46 | XR ---
EXAMINATION TYPE: XR chest 2V DATE OF EXAM: 11/28/2019 HISTORY: Chest Pain. REFERENCE: Previous study dated 10/10/2019. FINDINGS: There has been a interval midline sternotomy, CABG in 2 valves replaced. The patient has taken a relatively poor inspiration. There is atelectatic change present at both lung bases. There is mild vascular congestion without carlo interstitial change. I could not exclude smal l, bilateral effusions. IMPRESSION: 1. EXTENSIVE POSTSURGICAL CHANGE. 2. MILD VASCULAR CONGESTION WITHOUT CARLO EDEMA. 3. I COULD NOT EXCLUDE TINY, BILATERAL PLEURAL EFFUSIONS.
[2019-11-28 09:11] LABS: INR 1.1 (<1.2); Prothrombin Time 11.2 sec (9.0-12.0)
[2019-11-28 09:12] LABS: Partial Thromboplastin Time 23.3 sec (22.0-30.0)
--- NOTE | 2019-11-28 09:21 | US ---
EXAMINATION TYPE: US gallbladder DATE OF EXAM: 11/28/2019 COMPARISON: NONE CLINICAL HISTORY: ab pain. Pt states back pain, elevated LFT's EXAM MEASUREMENTS: Liver Length: 16.4 cm Gallbladder Wall: 0.3 cm CBD: 0.6 cm Right Kidney: 10.6 x 3.4 x 4.1 cm Somewhat limited exam, pt had recent heart surgery, not very mobile Pancreas: Obscured by bowel gas Liver: Limited visualized portions appeared wnl Gallbladder: Lumen clear, appeared distended Evidence for sonographic Ramirez's sign: No CBD: wnl Right Kidney: wnl, lower pole gassed out The pancreas is not visualized. The liver is normal in size without biliary dilatation. The gallbladder is unremarkable. The gallbladder wall measures 3 mm. This common hepatic duct measure s 6 mm. There is no sonographic Ramirez's sign. The right kidney is unremarkable. IMPRESSION: NORMAL RIGHT UPPER QUADRANT ULTRASOUND.
[2019-11-28 09:29] LABS: Appearance,Urine Clear (Clear); Bilirubin,Urine Negative (Negative); Blood,Urine Negative (Negative); Color,Urine Yellow; Glucose,Urine (UA) Negative (Negative); Ketones,Urine Negative (Negative); Leukocyte Esterase,Urine Trace (Negative); Mucus,Urine Rare /hpf; Nitrite,Urine Negative (Negative); Protein,Urine 1+ (Negative); RBC,Urine 2 /hpf (0-5); Specific Gravity,Urine 1.024 (1.001-1.035); Squamous Epithelial Cell,Urine <1 /hpf (0-4); Urobilinogen,Urine <2.0 mg/dL (<2.0); WBC,Urine 5 /hpf (0-5)
[2019-11-28] MEDS ORDERED: NALOXONE 0.4 MG/ML 1 ML VIAL IV PRN (10:42)
[2019-11-28] MEDS ORDERED: CEFEPIME 2 GM in SODIUM CHLORIDE 0.9% 100 ML IVPB STA (11:15)
--- NOTE | 2019-11-28 11:37 | P.HPIM ---
History of Present Illness H&P Date: 11/28/19 Chief Complaint: Sepsis, possible endocarditis, recent mitral valve replacement, recent CVA/ 69-year-old female one of my office patient of known very well with multiple medical problem known to have history of A. fib, hypertension, rheumatoid arthritis, hyperlipidemia, anemia was hospitalized in October for TIA patient was diagnosed with severe mitral regurgitation and up having bias to take valve at [facility] on November 14 and was released home 2 days ago while she was still having low-grade temperature and not feeling well. Patient continued to have fever and chills at home she woke up this morning having significant back pain with vomiting and low blood pressure with fever and chills ended up coming to the emergency department her temperature was reported at 102 patient had white blood cells 22,000 apparently was told before that before she left the hospital that the area where her narrative valve was removed showed some bacterial infection but no further culture was positive at the time patient was sent home without antibiotics. Patient was evaluated in the emergency department and felt her symptom can be related to sepsis from endocarditis [facility] was contacted and they're and her lack down for the COVID-19, they're not accepting any transfer or any patient from [facility]. Patient will be seen infectious disease and cardiology will be started on IV antibiotic for endocarditis will be admitted to the ICU will see director supplier quality as well. Review of Systems CONSTITUTIONAL: Well-developed no acute respiratory distress. Mild low-grade temperature. EYES: No icterus sclerae, no conjunctivitis. EARS, NOSE, MOUTH, THROAT, and FACE: No sore throat, lymphadenopathy, carotid bruits or deformity. RESPIRATORY: Mild shortness of breath with cough. Sternotomy CARDIOVASCULAR: Positive chest pain positive shortness of breath no anginal symptoms no palpitation lately. GASTROINTESTINAL: Mild abdominal pain with nausea no vomiting no diarrhea this point no active GI bleed. GENITOURINARY: Negative for Hematuria or UTI, no kidney stones. INTEGUMENT/BREAST: Negative for any muscular injury with mild osteoarthritis.. HEMATOLOGIC/LYMPHATIC: Negative for bleed or purpura. MUSCULOSKELTAL: Multiple arthralgia and myalgia from RA. NEURLOGICAL: No LOC, Sz or syncope, blurred vision dizziness or abnormality.. BEHAVIORAL/PSYCH: Negative. ENDOCRINE: Negative. Past Medical History Past Medical History: Atrial Fibrillation, GERD/Reflux, Hyperlipidemia, Rheumatoid Arthritis (RA) Additional Past Medical History / Comment(s): Compression fracture of L4 and L3 recently treated with kyphoplasty. Compression fracture L2 which is being treated conservatively compression fx L3-sx done. 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 History of Any Multi-Drug Resistant Organisms: None Reported Past Surgical History: Back Surgery, Cardiac Ablation, Orthopedic Surgery, Tonsillectomy Additional Past Surgical History / Comment(s): CATARATS LENS IMPLANTS, RT FOOT REMOVED 3 NODULES, right foot bone removed 05/18/18. Colonoscopy 2016(2nd) to repeat in 5 years. Back surgery 07/15/2018 and 07/22/2018. Cardiac ablation surgery, epidural steroid injections for back pain, MITRAL VALVE REPLACEMENT Past Anesthesia/Blood Transfusion Reactions: No Reported Reaction Additional Past Anesthesia/Blood Transfusion Reaction / Comment(s): VERTIGO ON A CRUISE Past Psychological History: No Psychological Hx Reported Smoking Status: Former smoker Past Alcohol Use History: None Reported Past Drug Use History: None Reported - Past Family History Father Family Medical History: Cancer, Neurologic Disorder Additional Family Medical History / Comment(s): Prostate cancer. ARRYTHMIA, CORNEAL IMPLANTS, LT EYE BLIND , PARKINSONS, FATHER HAS Mother Family Medical History: Cancer, Coronary Artery Disease (CAD), Diabetes Mellitus, Myocardial Infarction ([place]) Additional Family Medical History / Comment(s): Uterine cancer. CATARACTS, DETATCHED RETINA, GLAUCOMA, MACULAR DEGENERATION, STENTS, BOWEL RESECTION FOR DIVERTICULITIS, KATINA KNEE REPLACEMENT. recently Brother(s) Family Medical History: CVA/TIA Additional Family Medical History / Comment(s): stroke at 65 Sister(s) Family Medical History: No Reported History Medications and Allergies Home Medications Medication Instructions Recorded Confirmed Type Cholecalciferol [Vitamin D3 (25 1,000 unit PO DAILY 02/23/14 10/12/19 History Mcg = 1000 Iu)] Pantoprazole Sodium [Protonix] 40 mg PO DAILY 06/29/14 10/11/19 History Abaloparatide [Tymlos] 80 mcg SQ DAILY 02/15/19 10/12/19 History Flecainide [Tambocor] 75 mg PO BID 03/24/19 10/11/19 History Multivitamins, Thera [Multivitamin 1 tab PO DAILY 06/23/19 10/11/19 History (formulary)] Cider Vinegar [Apple Cider Vinegar] 300 mg PO DAILY 07/20/19 10/11/19 History Methotrexate Sodium [Methotrexate] 12.5 mg PO LITTLEJOHN 07/20/19 10/11/19 History Escitalopram [Lexapro] 10 mg PO DAILY 10/11/19 10/11/19 History Metoprolol Succinate (ER) [Toprol 50 mg PO DAILY 10/12/19 10/12/19 History XL] Simponi 100 mg SQ Q56D 10/12/19 10/12/19 History Rosuvastatin Calcium [Crestor] 40 mg PO DAILY #30 tab 10/13/19 Rx Warfarin [Coumadin] 5 mg PO SUMOTUTHSA #0 10/13/19 10/11/19 Rx Warfarin [Coumadin] 7.5 mg PO WEFR #0 10/13/19 10/12/19 Rx Allergies Allergy/AdvReac Type Severity Reaction Status Date / Time No Known Allergies Allergy Verified 11/28/19 07:45 Physical Exam Vitals: Vital Signs Temp Pulse Resp BP Pulse Ox 11/28/19 11:12 108 H 18 92/56 98 11/28/19 11:01 108 H 16 90/54 98 11/28/19 10:58 110 H 18 92/52 98 11/28/19 10:37 99.5 F 112 H 16 84/54 99 11/28/19 09:56 112 H 18 85/51 100 11/28/19 09:36 111 H 18 89/55 100 11/28/19 09:21 98.4 F 120 H 18 103/56 97 11/28/19 07:45 103.2 F H 147 H 18 140/81 98 Intake and Output 11/27/19 11/28/19 11/28/19 22:59 06:59 14:59 Other: Weight 56.245 kg General Appearance: Alert, cooperative, no distress, appears stated age. Neck HEENT: Supple, no lymphadenopathy, no thyroid enlargement, no carotid bruits. Lungs: Decreased breath sound bilaterally with fine rhonchi no crackles or wheezes. Chest Wall: Decrease expansion with deep inspiration positive tenderness over the incision site from her sternotomy no other deformity was found just mild bruises around the incision site. Heart: Irregular rhythm and rate S1-S2 positive history positive mitral valve click. Back: Symmetric, no curvature, ROM normal, no CVA tenderness. Abdomen: Soft, non-tender, bowel sounds active all four quadrants, no masses, no organomegaly. Extremities: Extremities normal, atraumatic, no cyanosis or edema. Pulses: 2+ and symmetric. Skin: Skin color, texture, tugor normal, no rashes or lesions. Neurologic: Alert oriented x3 cranial nerves II through XII intact, no motor deficit, no abnormal balance or gait. Results CBC & Chem 7: 11/28/19 08:00 11/28/19 08:00 Labs: Abnormal Lab Results - Last 24 Hours (Table) 11/28/19 11/28/19 11/28/19 Range/Units 08:00 08:00 08:00 WBC 22.6 H (3.8-10.6) k/uL Neutrophils # 20.3 H (1.3-7.7) k/uL Lymphocytes # 0.9 L (1.0-4.8) k/uL Carbon Dioxide 21 L (22-30) mmol/L BUN 19 H (7-17) mg/dL Glucose 111 H (74-99) mg/dL Plasma Lactic Acid Philip (0.7-2.0) mmol/L AST 53 H (14-36) U/L ALT 45 H (4-34) U/L Alkaline Phosphatase 160 H (38-126) U/L Troponin I 0.455 H* (0.000-0.034) ng/mL Lipase 423 H (23-300) U/L Urine Protein (Negative) Ur Leukocyte Esterase (Negative) Urine Mucus (None) /hpf 11/28/19 11/28/19 Range/Units 08:00 09:00 WBC (3.8-10.6) k/uL Neutrophils # (1.3-7.7) k/uL Lymphocytes # (1.0-4.8) k/uL Carbon Dioxide (22-30) mmol/L BUN (7-17) mg/dL Glucose (74-99) mg/dL Plasma Lactic Acid Philip 2.1 H* (0.7-2.0) mmol/L AST (14-36) U/L ALT (4-34) U/L Alkaline Phosphatase (38-126) U/L Troponin I (0.000-0.034) ng/mL Lipase (23-300) U/L Urine Protein 1+ H (Negative) Ur Leukocyte Esterase Trace H (Negative) Urine Mucus Rare H (None) /hpf Assessment and Plan Plan: 1 sepsis: Less than 2 weeks after valve replacement, patient will be on IV antibiotics with cefepime 2 g IV along with Zosyn was giving at this point we will combine vancomycin, patient will be seen infectious disease awaiting for culture and patient will require transesophageal echocardiogram in the next 48 hours for further management as well. 2 most likely endocarditis from recent valve placement patient will be treated for a newly by acidic valve done. 3 A. fib with RVR: Has been on anticoagulation before having her surgery was on Eliquis was changed to warfarin after her surgery we'll continue anticoagulation keep watching PT/INR on daily basis for now. Continue patient on flecainide and metoprolol. 4 recent TIA was most likely from lower level of anticoagulation has been corrected no residual at this point. 5 hypertension: Blood pressure is under control on beta phil smaller dose of are. 6 Hyperlipidemia: Patient is on Crestor 40 mg a day resume medication. 7 RA: Has been on methotrexate and small dose of prednisone both have been held for now. 8 chronic depression: On Lexapro 10 mg a day. 9 elevated troponin: Not a clear whether this is hypoperfusion shortly after surgery or related to non-ST [place] Will repeat troponin tomorrow morning and consult cardiology. 10 elevated lipase: With possible mild pancreatitis ultrasound of the liver and gallbladder will be done repeat lipase and amylase next 24 hours. 11 hyperglycemia: Continue patient on diet control. 12 GI prophylaxis: Patient will be on pantoprazole. 13 DVT prophylaxis: Patient is on anticoagulation currently. CODE STATUS: Full code. Admit patient to inpatient status for more than 2 night stay.
[2019-11-28] MEDS ORDERED: PANTOPRAZOLE 40 MG/10 ML VIAL IVP SCH (11:45)
[2019-11-28] MEDS: SODIUM CHLORIDE 0.9% 1,000 ML IV SCH ×2 (11:53→20:45)
--- NOTE | 2019-11-28 13:21 | P.CNPUL ---
History of Present Illness Consult date: 11/28/19 Requesting physician: Les Esteban Reason for consult: other (Sepsis, possible endocarditis.) Chief complaint: Fever, nausea and vomiting. History of present illness: This is a 69-year-old female with history of multiple medical problems including hypertension, chronic atrial fibrillation, rheumatoid arthritis, dyslipidemia, and recently hospitalized in October for TIA. Patient was found to have severe mitral regurgitation. Patient was referred to [facility], and on November 14, patient underwent mitral valve replacement. Her postoperative course was basically uneventful. She was released home to days ago. While in the stepdown unit, the patient had low-grade fever, and apparently the workup was nondiagnostic. Patient was discharged home, and for the last 2 days has been complaining of fever, nausea and vomiting, some back pain, no abdominal pain, no melena, no hematemesis, no dysuria and no frequency no urgency no hematuria. No cough no wheezing no shortness of breath. Workup in the ER was basically nondiagnostic. Patient was found to have basically slightly elevated lipase, lactic acid was 2.1 however went down to 1.2 after fluid boluses. Upon arrival to the ER her blood pressure was low however patient responded well to 2 L of fluids. Her systolic blood pressure in the ER was about 80, however as she arrived to the ICU her blood pressure was 110 systolic with a mean arterial pressure of 70. Hence did not feel the patient needed any pressors and clearly did not require central line placement influenza screen was negative. Urinalysis was basically unremarkable. Troponin was a bit elevated at 0.455. Transaminases were slightly elevated. Her WBC count was 22.6 with mostly PMNs. Chest x-ray showed no evidence of infiltrate. Review of Systems CONSTITUTIONAL: Mostly intermittent fevers for the last few days. No weight loss. EYES: Denies any diplopia blurred vision.. EARS, NOSE, MOUTH, THROAT, and FACE: Denies any symptoms of sinusitis, denies sore throat, denies ear ache. RESPIRATORY: Denies shortness of breath cough or wheezing. CARDIOVASCULAR: Postoperative chest wall pain otherwise unremarkable. No orthopnea no PND. GASTROINTESTINAL: Nausea vomiting but no abdominal pain. No melena no hematemesis. Patient is on iron, stools are normally dark because she had the fact she is taking iron GENITOURINARY: Denies any dysuria frequency urgency or hematuria INTEGUMENT/BREAST: Denies any rashes. HEMATOLOGIC/LYMPHATIC: Denies any history of clotting bleeding or bruising. MUSCULOSKELTAL: History of rheumatoid arthritis. Relatively stable NEURLOGICAL: Denies headache blurred vision dizziness. PSYCH: Denies anxiety or depression. ENDOCRINE: Denies heat or cold intolerance. Past Medical History Past Medical History: Atrial Fibrillation, GERD/Reflux, Hyperlipidemia, Rheumatoid Arthritis (RA) Additional Past Medical History / Comment(s): Compression fracture of L4 and L3 recently treated with kyphoplasty. Compression fracture L2 which is being treated conservatively compression fx L3-sx done. 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 History of Any Multi-Drug Resistant Organisms: None Reported Past Surgical History: Back Surgery, Cardiac Ablation, Orthopedic Surgery, Tonsillectomy Additional Past Surgical History / Comment(s): CATARATS LENS IMPLANTS, RT FOOT REMOVED 3 NODULES, right foot bone removed 05/18/18. Colonoscopy 2016(2nd) to repeat in 5 years. Back surgery 07/15/2018 and 07/22/2018. Cardiac ablation surgery, epidural steroid injections for back pain, MITRAL VALVE REPLACEMENT Past Anesthesia/Blood Transfusion Reactions: No Reported Reaction Additional Past Anesthesia/Blood Transfusion Reaction / Comment(s): VERTIGO ON A CRUISE Past Psychological History: No Psychological Hx Reported Smoking Status: Former smoker Past Alcohol Use History: None Reported Past Drug Use History: None Reported - Past Family History Father Family Medical History: Cancer, Neurologic Disorder Additional Family Medical History / Comment(s): Prostate cancer. ARRYTHMIA, CORNEAL IMPLANTS, LT EYE BLIND , PARKINSONS, FATHER HAS Mother Family Medical History: Cancer, Coronary Artery Disease (CAD), Diabetes Mellitus, Myocardial Infarction ([place]) Additional Family Medical History / Comment(s): Uterine cancer. CATARACTS, DETATCHED RETINA, GLAUCOMA, MACULAR DEGENERATION, STENTS, BOWEL RESECTION FOR DIVERTICULITIS, KATINA KNEE REPLACEMENT. recently Brother(s) Family Medical History: CVA/TIA Additional Family Medical History / Comment(s): stroke at 65 Sister(s) Family Medical History: No Reported History Medications and Allergies Home Medications Medication Instructions Recorded Confirmed Type Pantoprazole Sodium [Protonix] 40 mg PO DAILY@0800 06/29/14 11/28/19 History Multivitamins, Thera [Multivitamin 1 tab PO DAILY@1200 06/23/1911/27/20 History (formulary)] Cider Vinegar [Apple Cider Vinegar] 600 mg PO DAILY@119907/20/19 11/28/19 History Methotrexate Sodium [Methotrexate] 12.5 mg PO LITTLEJOHN 07/20/19 11/28/19 History Acetaminophen Tab [Tylenol] 650 mg PO Q6H PRN 11/28/19 11/28/19 History Apixaban [Eliquis] 5 mg PO BID@08,199911/28/19 11/28/19 History Aspirin 81 mg PO AC-BRKFST@0811/28/19 11/28/19 History Calcium Carbonate [Calcium] 600 mg PO DAILY@119911/28/19 11/28/19 History Cholecalciferol (Vitamin D3) 5,000 unit PO DAILY@119911/28/19 11/28/19 History [Vitamin D3] Dofetilide [Tikosyn] 250 mcg PO BID@08,199911/28/19 11/28/19 History Ferrous Sulfate [Feosol] 325 mg PO DAILY@119911/28/19 11/28/19 History Folic Acid 1 mg PO DAILY@0811/28/19 11/28/19 History Furosemide [Lasix] 20 mg PO DAILY@79911/28/19 11/28/19 History HYDROcodone/APAP 5-325MG [[place] 1 tab PO Q6H PRN 11/28/19 11/28/19 History 5-325] Lidocaine [Lidoderm 5% Patch] 2 patch TRANSDERM DAILY@99911/28/19 11/28/19 History Magnesium Oxide 400 mg PO DAILY@0811/28/19 11/28/19 History Methocarbamol [Robaxin] 500 mg PO TID@0600,1400,2200 11/28/19 11/28/19 History Metoprolol Tartrate [Lopressor] 12.5 mg PO BID@799,199911/28/19 11/28/19 History Polyethylene Glycol 3350 [Miralax] 17 gm PO DAILY@0811/28/19 11/28/19 History Potassium Chloride ER [K-Dur 20] 20 meq PO DAILY@0811/28/19 11/28/19 History Rosuvastatin Calcium [Crestor] 40 mg PO DAILY@0800 11/28/19 11/28/19 History Sennosides-Docusate Sodium 1 tab PO DAILY@0800 11/28/19 11/28/19 History [Senokot-S] Simponi 100 mg SQ Q56D 11/28/19 11/28/19 History Allergies Allergy/AdvReac Type Severity Reaction Status Date / Time No Known Allergies Allergy Verified 11/28/19 12:06 Physical Exam Vitals: Vital Signs Temp Pulse Resp BP Pulse Ox 11/28/19 11:52 107 H 18 92/52 100 11/28/19 11:12 108 H 18 92/56 98 11/28/19 11:01 108 H 16 90/54 98 11/28/19 10:58 110 H 18 92/52 98 11/28/19 10:37 99.5 F 112 H 16 84/54 99 11/28/19 09:56 112 H 18 85/51 100 11/28/19 09:36 111 H 18 89/55 100 11/28/19 09:21 98.4 F 120 H 18 103/56 97 11/28/19 07:45 103.2 F H 147 H 18 140/81 98 Intake and Output 11/27/19 11/28/19 11/28/19 22:59 06:59 14:59 Other: Weight 56.245 kg General Appearance: Revealed 69-year-old female, extremely pleasant, in no distress, on room air. Neck HEENT: PERRLA, EOMI, neck this, moist mucous membranes, throat is clear. Lungs: Slightly diminished breath sounds at the bases no crackles or rhonchi or wheezes.. Chest Wall: Symmetrical chest expansion, minimal tenderness over the sternotomy site. Site seems to be clean. And the right Heart: Irregular irregular rhythm, positive systolic click noted. Back: No wall tenderness. No erythema. Abdomen soft nontender HEENT no rebound no guarding positive bowel sounds. Extremities: No clubbing edema or cyanosis. No petechiae. +2 pulses symmetrical. Skin: No rashes, normal skin turgor. No cyanosis. Neurologic: Alert and oriented 3 focal neurologic deficit Psychiatric: Normal mood, affect and normal mental status examination. Results - Laboratory Findings CBC and BMP: 11/28/19 08:00 11/28/19 08:00 PT/INR, D-dimer PT 11.2 sec (9.0-12.0) 11/28/19 08:00 INR 1.1 (<1.2) 11/28/19 08:00 Abnormal lab findings: Abnormal Labs 11/28/19 11/28/19 11/28/19 08:00 08:00 08:00 WBC 22.6 H Neutrophils # 20.3 H Lymphocytes # 0.9 L Carbon Dioxide 21 L BUN 19 H Glucose 111 H Plasma Lactic Acid Philip AST 53 H ALT 45 H Alkaline Phosphatase 160 H Troponin I 0.455 H* Lipase 423 H Urine Protein Ur Leukocyte Esterase Urine Mucus 11/28/19 11/28/19 08:00 09:00 WBC Neutrophils # Lymphocytes # Carbon Dioxide BUN Glucose Plasma Lactic Acid Philip 2.1 H* AST ALT Alkaline Phosphatase Troponin I Lipase Urine Protein 1+ H Ur Leukocyte Esterase Trace H Urine Mucus Rare H - Diagnostic Findings Chest x-ray: image reviewed (As noted in HPI.) Assessment and Plan Assessment: Impression: Sepsis, possible acute bacterial endocarditis. History of recent mitral valve replacement. Chronic atrial fibrillation. Patient is on anticoagulation therapy. Dyslipidemia. History of rheumatoid arthritis. Benign essential hypertension. History of TIA. Elevated lipase, however no clinical symptoms of clear-cut pancreatitis. And the patient had normal ultrasound of the liver and gallbladder. Recommendation: Agree with the present course of treatment including antibiotics. Agree with fluid boluses, no need for pressors. Agree with Protonix for GI prophylaxis. Close monitoring in the ICU. We'll continue to follow. Considering her blood pressure was stableL no need for central line placement at this point. Time with Patient: Greater than 30
[2019-11-28 15:51] LABS: ALT 32 U/L (4-34); AST 39 U/L (14-36); African American GFR (CKD) >90 (>60 ml/min/1.73 sqM); Albumin 3.1 g/dL (3.5-5.0); Alkaline Phosphatase 112 U/L (38-126); Anion Gap 7 mmol/L; Blood Urea Nitrogen 16 mg/dL (7-17); Carbon Dioxide 23 mmol/L (22-30); Chloride 103 mmol/L (98-107); Glucose 100 mg/dL (74-99); Non-African American GFR(CKD) 86 (>60 ml/min/1.73 sqM); Potassium 4.9 mmol/L (3.5-5.1); Sodium 133 mmol/L (137-145); Total Bilirubin 0.5 mg/dL (0.2-1.3); Total Protein 6.4 g/dL (6.3-8.2)
[2019-11-28] MEDS ORDERED: PIPERACILLIN-TAZOBACTAM 3.375 GM in SODIUM CHLORIDE 0.9% 100 ML IVPB SCH (16:00)
[2019-11-28] MEDS ORDERED: ACETAMINOPHEN TAB 325 MG TAB PO PRN (17:46)
[2019-11-28 18:08] LABS: Glucose,Whole Blood 82 mg/dL (75-99)
[2019-11-28] MEDS: VANCOMYCIN 1,000 MG in SODIUM CHLORIDE 0.9% 250 ML IVPB SCH (20:35)
[2019-11-28] MEDS: CEFEPIME 2 GM in SODIUM CHLORIDE 0.9% 100 ML IVPB SCH (20:44)
[2019-11-28] MEDS: APIXABAN 5 MG TAB PO SCH (20:44)
[2019-11-28] MEDS: METOPROLOL TARTRATE 12.5 MG TAB PO SCH (20:45)
[2019-11-28] MEDS: DOFETILIDE 250 MCG CAP PO SCH (20:45)
[2019-11-28] MEDS: METHOCARBAMOL 500 MG TAB PO SCH (20:46)
[2019-11-28] MEDS ORDERED: SODIUM CHLORIDE 0.9% 1,000 ML IV ONE (21:00)
--- NOTE | 2019-11-28 23:20 | P.CONS ---
History of Present Illness - Reason for Consult Consult date: 11/28/19 Fever and ?endocarditis Requesting physician: Les Esteban - Chief Complaint Fever and shortness of breath x 1 day - History of Present Illness Patient is a 77-year-old female who recently did have her mitral wall replacement at [facility] on November 15, 2019 patient was discharged home last Friday that is 2 days prior to presentation the hospital patient is now presenting to the hospital with chief complaints of low-grade fever and not feeling well patient apparently woke up this morning with rigors and chills she was unable to keep herself warm patient denies having any headache or URI symptoms she is complaining of some shortness of breath and minimal cough no sputum no chest pain no nausea no vomiting no abdominal pain or any diarrhea patient on arrival to the ER did have a fever of 103.2 F patient has been tachycardic with heart rate of 147 white count was up to 22,000 creatinine was normal troponin is elevated urine negative influenza PCR was negative UA negative patient did have a chest x-ray shows extensive postsurgical change mild vascular congestion bilateral pleural effusion patient did have blood cultures drawn and has been admitted to hospital consult for possible infective endocarditis infectious disease was consulted for further recommendation regarding antibiotic therapy. Review of Systems Positive point has been mentioned in HPI rest of the systems are negative Past Medical History Past Medical History: Atrial Fibrillation, GERD/Reflux, Hyperlipidemia, Rheumatoid Arthritis (RA) Additional Past Medical History / Comment(s): Compression fracture of L4 and L3 recently treated with kyphoplasty. Compression fracture L2 which is being treated conservatively compression fx L3-sx done. 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 History of Any Multi-Drug Resistant Organisms: None Reported Past Surgical History: Back Surgery, Cardiac Ablation, Orthopedic Surgery, Tonsi llectomy Additional Past Surgical History / Comment(s): CATARATS LENS IMPLANTS, RT FOOT REMOVED 3 NODULES, right foot bone removed 05/18/18. Colonoscopy 2016(2nd) to repeat in 5 years. Back surgery 07/15/2018 and 07/22/2018. Cardiac ablation surgery, epidural steroid injections for back pain, MITRAL VALVE REPLACEMENT Past Anesthesia/Blood Transfusion Reactions: No Reported Reaction Additional Past Anesthesia/Blood Transfusion Reaction / Comm: VERTIGO ON A CRUISE Past Psychological History: No Psychological Hx Reported Smoking Status: Former smoker Past Alcohol Use History: None Reported Past Drug Use History: None Reported - Past Family History Father Family Medical History: Cancer, Neurologic Disorder Additional Family Medical History / Comment(s): Prostate cancer. ARRYTHMIA, CORNEAL IMPLANTS, LT EYE BLIND , PARKINSONS, FATHER HAS Mother Family Medical History: Cancer, Coronary Artery Disease (CAD), Diabetes Mellitus, Myocardial Infarction (NE) Additional Family Medical History / Comment(s): Uterine cancer. CATARACTS, DETATCHED RETINA, GLAUCOMA, MACULAR DEGENERATION, STENTS, BOWEL RESECTION FOR DIVERTICULITIS, KATINA KNEE REPLACEMENT. recently Brother(s) Family Medical History: CVA/TIA Additional Family Medical History / Comment(s): stroke at 65 Sister(s) Family Medical History: No Reported History Medications and Allergies Home Medications Medication Instructions Recorded Confirmed Type Pantoprazole Sodium [Protonix] 40 mg PO DAILY@0800 06/29/14 11/28/19 History Multivitamins, Thera [Multivitamin 1 tab PO DAILY@1200 06/23/19 11/28/19 History (formulary)] Cider Vinegar [Apple Cider Vinegar] 600 mg PO DAILY@1200 07/20/19 11/28/19 History Methotrexate Sodium [Methotrexate] 12.5 mg PO LITTLEJOHN 07/20/19 11/28/19 History Acetaminophen Tab [Tylenol] 650 mg PO Q6H PRN 11/28/19 11/28/19 History Apixaban [Eliquis] 5 mg PO BID@0800,199911/28/19 11/28/19 History Aspirin 81 mg PO AC-BRKFST@0811/28/19 11/28/19 History Calcium Carbonate [Calcium] 600 mg PO DAILY@119911/28/19 11/28/19 History Cholecalciferol (Vitamin D3) 5,000 unit PO DAILY@119911/28/19 11/28/19 History [Vitamin D3] Dofetilide [Tikosyn] 250 mcg PO BID@0800,199911/28/19 11/28/19 History Ferrous Sulfate [Feosol] 325 mg PO DAILY@1200 11/28/19 11/28/19 History Folic Acid 1 mg PO DAILY@0800 11/28/19 11/28/19 History Furosemide [Lasix] 20 mg PO DAILY@0800 11/28/19 11/28/19 History HYDROcodone/APAP 5-325MG [[place] 1 tab PO Q6H PRN 11/28/19 11/28/19 History 5-325] Lidocaine [Lidoderm 5% Patch] 2 patch TRANSDERM DAILY@1000 11/28/19 11/28/19 History Magnesium Oxide 400 mg PO DAILY@0800 11/28/19 11/28/19 History Methocarbamol [Robaxin] 500 mg PO TID@0600,1400,2200 11/28/19 11/28/19 History Metoprolol Tartrate [Lopressor] 12.5 mg PO BID@0800,2000 11/28/19 11/28/19 History Polyethylene Glycol 3350 [Miralax] 17 gm PO DAILY@0800 11/28/19 11/28/19 History Potassium Chloride ER [K-Dur 20] 20 meq PO DAILY@0800 11/28/19 11/28/19 History Rosuvastatin Calcium [Crestor] 40 mg PO DAILY@0800 11/28/19 11/28/19 History Sennosides-Docusate Sodium 1 tab PO DAILY@0800 11/28/19 11/28/19 History [Senokot-S] Simponi 100 mg SQ Q56D 11/28/19 11/28/19 History Allergies Allergy/AdvReac Type Severity Reaction Status Date / Time No Known Allergies Allergy Verified 11/28/19 12:06 Physical Exam Vitals: Vital Signs Temp Pulse Resp BP Pulse Ox 11/28/19 14:00 101 H 15 105/74 97 11/28/19 13:00 103 H 18 110/65 96 11/28/19 12:31 99.6 F 105 H 14 97/63 97 11/28/19 11:52 107 H 18 92/52 100 11/28/19 11:12 108 H 18 92/56 98 11/28/19 11:01 108 H 16 90/54 98 11/28/19 10:58 110 H 18 92/52 98 11/28/19 10:37 99.5 F 112 H 16 84/54 99 11/28/19 09:56 112 H 18 85/51 100 11/28/19 09:36 111 H 18 89/55 100 11/28/19 09:21 98.4 F 120 H 18 103/56 97 11/28/19 07:45 103.2 F H 147 H 18 140/81 98 Intake and Output 11/28/19 11/28/19 11/28/19 06:59 14:59 22:59 Other: Weight 56.245 kg GENERAL DESCRIPTION: Elderly female lying in bed, no distress. No tachypnea or accessory muscle of respiration use. HEENT: Shows Pallor , no scleral icterus. Oral mucous membrane is dry. NECK: Trachea central, no thyromegaly. LUNGS: Unlabored breathing. Decreased breath sound at the base. No wheeze or crackle. HEART: S1, S2, regular rate and rhythm. ABDOMEN: Soft, no tenderness , guarding or rigidity EXTREMITIES: No edema of feet. SKIN: No rash, no masses palpable. NEUROLOGICAL: The patient is awake, alert, oriented x3, mood and affect normal. Results CBC & Chem 7: 11/28/19 08:00 11/28/19 15:30 Labs: Abnormal Lab Results - Last 24 Hours (Table) 11/28/19 11/28/19 11/28/19 Range/Units 08:00 08:00 08:00 WBC 22.6 H (3.8-10.6) k/uL Neutrophils # 20.3 H (1.3-7.7) k/uL Lymphocytes # 0.9 L (1.0-4.8) k/uL Sodium (137-145) mmol/L Carbon Dioxide 21 L (22-30) mmol/L BUN 19 H (7-17) mg/dL Glucose 111 H (74-99) mg/dL Plasma Lactic Acid Philip (0.7-2.0) mmol/L Calcium (8.4-10.2) mg/dL AST 53 H (14-36) U/L ALT 45 H (4-34) U/L Alkaline Phosphatase 160 H (38-126) U/L Troponin I 0.455 H* (0.000-0.034) ng/mL Albumin (3.5-5.0) g/dL Lipase 423 H (23-300) U/L Urine Protein (Negative) Ur Leukocyte Esterase (Negative) Urine Mucus (None) /hpf 11/28/19 11/28/19 11/28/19 Range/Units 08:00 09:00 15:10 WBC (3.8-10.6) k/uL Neutrophils # (1.3-7.7) k/uL Lymphocytes # (1.0-4.8) k/uL Sodium (137-145) mmol/L Carbon Dioxide (22-30) mmol/L BUN (7-17) mg/dL Glucose (74-99) mg/dL Plasma Lactic Acid Philip 2.1 H* (0.7-2.0) mmol/L Calcium (8.4-10.2) mg/dL AST (14-36) U/L ALT (4-34) U/L Alkaline Phosphatase (38-126) U/L Troponin I 0.473 H* (0.000-0.034) ng/mL Albumin (3.5-5.0) g/dL Lipase (23-300) U/L Urine Protein 1+ H (Negative) Ur Leukocyte Esterase Trace H (Negative) Urine Mucus Rare H (None) /hpf 11/28/19 Range/Units 15:30 WBC (3.8-10.6) k/uL Neutrophils # (1.3-7.7) k/uL Lymphocytes # (1.0-4.8) k/uL Sodium 133 L (137-145) mmol/L Carbon Dioxide (22-30) mmol/L BUN (7-17) mg/dL Glucose 100 H (74-99) mg/dL Plasma Lactic Acid Philip (0.7-2.0) mmol/L Calcium 8.0 L (8.4-10.2) mg/dL AST 39 H (14-36) U/L ALT (4-34) U/L Alkaline Phosphatase (38-126) U/L Troponin I (0.000-0.034) ng/mL Albumin 3.1 L (3.5-5.0) g/dL Lipase (23-300) U/L Urine Protein (Negative) Ur Leukocyte Esterase (Negative) Urine Mucus (None) /hpf Assessment and Plan Assessment: -patient presented to the hospital with sepsis in this patient who did have fever tachycardia elevated white count and this patient recently did have a mitral valve replacement with concern for possible endocarditis in view of no other obvious clinical focus of infection patient UA has been negative abdominal soft leg examination chest x-ray did not show significant consolidation to be suspicious for pneumonia, however in view of the patient being and has been for hospital with most of the cases of COVID-19 has been in this patient has been complaining of shortness of breath and dry cough it is important to rule her out for coronary infection as well as the patient did not show significant lactic acidosis and did have mild lymphopenia (1) Sepsis Current Visit: Yes Status: Acute Code(s): A41.9 - SEPSIS, UNSPECIFIED ORGANISM SNOMED Code(s): 88132993 Plan: 1-we will send a nasopharyngeal swab is a pharyngeal swab for COVID-19 testing 2-droplet isolation 3-vancomycin pharmacy to dose and cefepime 2 g every 12 hours while waiting for the blood cultures to be finalized 4-await echocardiogram in the morning We will follow on clinical condition and cultures to further adjust medication if needed Thank you for this consultation we will follow the patient along with you Time with Patient: Greater than 30
[2019-11-29] MEDS: VANCOMYCIN 1,000 MG in SODIUM CHLORIDE 0.9% 250 ML IVPB SCH ×3 (03:46→18:15)
[2019-11-29] MEDS: HYDROcodone/APAP 5-325MG 1 EACH TAB PO PRN ×2 (05:30→14:46)
[2019-11-29] MEDS: METHOCARBAMOL 500 MG TAB PO SCH ×3 (05:30→23:47)
[2019-11-29 05:46] LABS: Basophils # (A) 0.1 k/uL (0-0.2); Basophils % (A) 1 %; Eosinophils # (A) 0.2 k/uL (0-0.7); Eosinophils % (A) 2 %; HCT 27.1 % (34.0-46.0); Hypochromasia Marked; Lymphocytes # (A) 1.1 k/uL (1.0-4.8); Lymphocytes % (A) 9 %; MCH 30.8 pg (25.0-35.0); MCHC 30.4 g/dL (31.0-37.0); Macrocytosis Slight; Mean Platelet Volume 7.4; Monocytes # (A) 0.5 k/uL (0-1.0); Monocytes % (A) 4 %; Neutrophils # (A) 9.9 k/uL (1.3-7.7); Neutrophils % (A) 82 %; Platelet Count 266 k/uL (150-450); RBC 2.68 m/uL (3.80-5.40); RDW 14.4 % (11.5-15.5)
[2019-11-29 05:48] LABS: HGB 8.3 gm/dL (11.4-16.0)
[2019-11-29 05:53] LABS: INR 1.2 (<1.2); Prothrombin Time 11.8 sec (9.0-12.0)
[2019-11-29 06:15] LABS: ALT 27 U/L (4-34); AST 36 U/L (14-36); African American GFR (CKD) >90 (>60 ml/min/1.73 sqM); Albumin 2.7 g/dL (3.5-5.0); Alkaline Phosphatase 92 U/L (38-126); Amylase 81 U/L (30-110); Anion Gap 7 mmol/L; Blood Urea Nitrogen 12 mg/dL (7-17); Calcium 8.2 mg/dL (8.4-10.2); Carbon Dioxide 18 mmol/L (22-30); Chloride 111 mmol/L (98-107); Glucose 78 mg/dL (74-99); Non-African American GFR(CKD) >90 (>60 ml/min/1.73 sqM); Potassium 3.9 mmol/L (3.5-5.1); Sodium 136 mmol/L (137-145); Total Bilirubin 0.4 mg/dL (0.2-1.3); Total Protein 5.8 g/dL (6.3-8.2)
--- NOTE | 2019-11-29 07:27 | XR ---
EXAMINATION TYPE: XR chest 1V portable DATE OF EXAM: 11/29/2019 Comparison: 11/28/2019 Clinical History: 69-year-old female shortness of breath Findings: Median sternotomy wires are present with prosthetic cardiac valves and annuloplasty ring. Heart upper limits of normal in size. Some mild patchy bibasilar opacities remain without pericardial effusion. Lung volumes improved in the interval. Impression: Borderline heart size and residual patchy bibasilar areas of atelectasis/infiltrate.
[2019-11-29] MEDS: APIXABAN 5 MG TAB PO SCH ×3 (08:35→20:05)
[2019-11-29] MEDS: ATORVASTATIN 80 MG TAB PO SCH (08:35)
[2019-11-29] MEDS: SODIUM CHLORIDE 0.9% 1,000 ML IV SCH ×2 (08:35→18:16)
[2019-11-29] MEDS: ASPIRIN 81 MG PO SCH (08:35)
[2019-11-29] MEDS: DOFETILIDE 250 MCG CAP PO SCH ×3 (08:37→20:05)
[2019-11-29] MEDS: METOPROLOL TARTRATE 12.5 MG TAB PO SCH ×3 (08:43→20:04)
[2019-11-29] MEDS: PANTOPRAZOLE 40 MG TABLET PO SCH (08:43)
[2019-11-29] MEDS: FUROSEMIDE 20 MG TAB PO SCH (08:43)
[2019-11-29] MEDS: POTASSIUM CHLORIDE ER 20 MEQ TAB.ER PO SCH (08:44)
[2019-11-29] MEDS: MAGNESIUM OXIDE 400 MG TAB PO SCH (08:44)
[2019-11-29] MEDS: CEFEPIME 2 GM in SODIUM CHLORIDE 0.9% 100 ML IVPB SCH ×2 (08:44→19:48)
[2019-11-29] MEDS: FOLIC ACID 1 MG TAB PO SCH (08:44)
[2019-11-29] MEDS: POLYETHYLENE GLYCOL 3350 17 GM POWD.PACK PO SCH (08:45)
[2019-11-29] MEDS: SENNOSIDES-DOCUSATE SODIUM 1 EACH TAB PO SCH (09:12)
--- NOTE | 2019-11-29 09:48 | ECHOF ---
Referral Reason:Endocarditis MEASUREMENTS -------- HEIGHT: 157.5 cm WEIGHT: 64.4 kg BP: 118/63 RVIDd: 2.8 cm (< 3.3) IVSd: 1.2 cm (0.6 - 1.1) LVIDd: 4.1 cm (3.9 - 5.3) LVPWd: 1.3 cm (0.6 - 1.1) IVSs: 2.0 cm LVIDs: 3.2 cm LVPWs: 1.9 cm LA Diam: 3.9 cm (2.7 - 3.8) LAESV Index (A-L): 50.20 ml/m Ao Diam: 3.3 cm (2.0 - 3.7) AV Cusp: 1.8 cm (1.5 - 2.6) RAP: 5.00 mmHg RVSP: 33.18 mmHg FINDINGS -------- Sinus rhythm. This was a technically adequate study. The left ventricular size is normal. There is mild concentric left ventricular hypertrophy. Overa ll left ventricular systolic function is normal with, an EF between 60 - 65 %. The right ventricle is normal in size. LA is severely dilated >40 ml/m2 The right atrium is normal in size. Interatrial and interventricular septum intact. The aortic valve is trileaflet and appears structurally normal. The peak and mean MV gradients are 14.70mmHg 7.24mmHg as measured by doppler. There is no regurgita tion of the bioprosthetic mitral valve. Mild tricuspid regurgitation present. Right ventricular systolic pressure is normal at < 35 mmHg. Trace/mild (physiologic) pulmonic regurgitation. The aortic root size is normal. Normal inferior vena cava with normal inspiratory collapse consistent with estimated right atrial pre ssure of 5 mmHg. There is no pericardial effusion. CONCLUSIONS -------- 1. Sinus rhythm. 2. This was a technically adequate study. 3. The left ventricular size is normal. 4. There is mild concentric left ventricular hypertrophy. 5. Overall left ventricular systolic function is normal with, an EF between 60 - 65 %. 6. The right ventricle is normal in size. 7. LA is severely dilated >40 ml/m2 8. The right atrium is normal in size. 9. Interatrial and interventricular septum intact. 10. The aortic valve is trileaflet and appears structurally normal. 11. The peak and mean MV gradients are 14.70mmHg 7.24mmHg as measured by doppler. 12. There is no regurgitation of the bioprosthetic mitral valve. 13. Mild tricuspid regurgitation present. 14. Right ventricular systolic pressure is normal at < 35 mmHg. 15. Trace/mild (physiologic) pulmonic regurgitation. 16. The aortic root size is normal. 17. Normal inferior vena cava with normal inspiratory collapse consistent with estimated right atrial pressure of 5 mmHg. 18. There is no pericardial effusion. STOKER MECHANIC: Laxmi Davenport RDCS
--- NOTE | 2019-11-29 10:14 | CDI ---
Documentation Clarification Form Date: 11/29/2019 10:07:44 AM From: Linda Burkett RN, CCDS Admit Date: 11/28/2019 10:42:00 AM Patient Name: Didi Ruano Visit Number: [id number] ATTENTION: The Clinical Documentation Specialists (CDI) and [facility] Coding Staff appreciate your assistance in clarifying documentation. Please respond to the clarification below the line at the bottom and electronically sign. The CDI & [facility] Coding staff will review the response and follow-up if needed. Please note: Queries are made part of the Legal Health Record. If you have any questions, please contact the author of this message via ITS. Dr. Les Esteban A diagnosis of anemia lacks specificity to accurately reflect your patients severity of condition and clarification is needed. History/Risk Factors: Anemia, A-Fib, Recent MVR Clinical indicators: 11/27-11/28 Hemoglobin: 11.8/8.3 11/27-11/28 Hematocrit: 36.9/27.1 Treatment: Monitoring labs Feosol 325 MG PO QD Eliquis 5 mg PO BID 11/27 2.5 L IVF 0.9%NS Bolus followed by 100 cc/hr In order to capture the severity of condition, please clarify the type of anemia and etiology if known: XX Acute blood loss anemia Acute on chronic blood loss anemia Chronic blood loss anemia Iron deficiency anemia Drug induced anemia Nutritional anemia Anemia of chronic disease Unable to determine Other, please specify (Last Revision: June 2017) MTDD
--- NOTE | 2019-11-29 11:22 | PN ---
PROGRESS NOTE PULMONARY/CRITICAL CARE PROGRESS NOTE: DATE OF SERVICE: November 28, 2018 This is a 69-year-old female who was admitted to the hospital on November 27. She was admitted with a diagnosis of possible endocarditis and sepsis. The patient had a recent mitral valve replacement at [facility]. This occurred back on November 14, I believe. She does carry with her a diagnosis of hyperlipidemia, rheumatoid arthritis, essential hypertension, and TIA. Anyway, the patient is doing well. She is on room air. Her IV saline at 100 mL an hour. She received 3 L of fluid in the emergency room. Her lactic acid that was initially 2.1 was down to 1.2. She has not required any pressors. Her blood cultures were positive for Group D Enterococcus. Urine sampling is negative thus far. She is currently on cefepime and vancomycin. Currently, other than for pain at the surgical site, she is doing reasonably well. She states that her urine did have a bad smell to it. Other than that, denied other complaints. PHYSICAL EXAMINATION: VITAL SIGNS: Current vital signs include temperature 97.7, heart rate 89, respiratory rate 12, blood pressure 106/64, mean 78, room-air saturation 97%. GENERAL APPEARANCE: Appears in no acute distress. HEENT: Examination is grossly unremarkable. Mucous membranes are moist. NECK: Supple. Full range of motion. No adenopathy. Neck veins are flat. CARDIOVASCULAR: Examination reveals regular rhythm rate. Heart rate about 85 beats per minute. It is regular. S1, S2 normal. No murmur noted. LUNGS: Reveal clear breath sounds. No wheezes, rhonchi, or crackles. The surgical site is clean and dry. No drainage. ABDOMEN: Soft. Bowel sounds are heard. EXTREMITIES: Are intact. No cyanosis, clubbing, or edema. SKIN: Without rash. NEUROLOGIC: Examination is brief but nonfocal. Chest x-ray from the shows some patchy bibasilar atelectasis. Transesophageal echocardiogram shows good overall cardiac function, appeared without any lesions on the valve to suggest endocarditis. LABS: Labs are reviewed. White count 12, hemoglobin 8.3, hematocrit 27.1, platelet count 266,000. PT/INR is 11.8 and 1.2. Sodium 136, potassium 3.9, chloride 111, CO2 of 18. Anion gap is 7. BUN and creatinine were 12 and 0.54. Troponins were 0.473 and 0.502. Albumin 3.1. Influenza studies were negative. Urinalysis appears to be negative. Microbiology is positive only for the group D Enterococcus in the bloodstream. ASSESSMENT: 1. Group D Enterococcus bacteremia/sepsis. 2. Recent mitral valve replacement at [facility]. 3. History of valvular heart disease. 4. Chronic atrial fibrillation. 5. Hyperlipidemia. 6. History of rheumatoid arthritis. 7. Benign essential hypertension. 8. History of transient ischemic attack. PLAN: The patient's transesophageal echocardiogram did not show any evidence of vegetations. Will continue to follow. The patient is on good antibiotics in the form of cefepime and vancomycin. Prognosis is guarded. Clinically, she looks well. I did ask the nurse to make sure there are cultures done. She is not producing any phlegm. Chest x- ray is essentially negative. We will continue to follow. GORDOL / REHANAN: [id number] /
--- NOTE | 2019-11-29 11:48 | P.PN ---
Subjective Progress Note Date: 11/29/19 69-year-old female one of my office patient of known very well with multiple medical problem known to have history of A. fib, hypertension, rheumatoid arthritis, hyperlipidemia, anemia was hospitalized in October for TIA patient was diagnosed with severe mitral regurgitation and up having bias to take valve at [facility] on November 14 and was released home 2 days ago while she was still having low-grade temperature and not feeling well. Patient continued to have fever and chills at home she woke up this morning having significant back pain with vomiting and low blood pressure with fever and chills ended up coming to the emergency department her temperature was reported at 102 patient had white blood cells 22,000 apparently was told before that before she left the hospital that the area where her narrative valve was removed showed some bacterial infection but no further culture was positive at the time patient was sent home without antibiotics. Patient was evaluated in the emergency department and felt her symptom can be related to sepsis from endocarditis [facility] was contacted and they're and her lack down for the COVID-19, they're not accepting any transfer or any patient from THE [facility]. Patient will be seen infectious disease and cardiology will be started on IV antibiotic for endocarditis will be admitted to the ICU will see general foreman as well. 11/28: Patient remains in intensive care unit. She is currently on cefepime and vancomycin followed by Dr. Snow and treated for suspected endocarditis. Blood cultures positive for group D enterococcus. Repeat blood cultures have been ordered. Patient remains in droplet isolation and COVID-19 testing remains pending. Repeat lab work today reveals white count of 12, hemoglobin 8.3, platelet count 266, INR 1.2. Sodium 136, potassium 3.9, chloride 111, CO2 18, BUN 12 and creatinine 0.54. JOSE L done by Dr. Lincoln reveals EF of 60-65% with mild concentric left ventricular hypertrophy, mild tricuspid regurgitation. There is no evidence of vegetation. Patient has been afebrile since admission, heart rate 97, blood pressure 106/54, pulse ox 97% on room air. Objective - Vital Signs Vital signs: Vital Signs Temp 97.7 F 11/29/19 08:00 Pulse 97 11/29/19 09:00 Resp 9 L 11/29/19 09:00 BP 106/64 11/29/19 09:00 Pulse Ox 97 11/29/19 09:00 Intake & Output 11/28/19 11/29/19 11/29/19 18:59 06:59 18:59 Intake Total 700 2450 400 Output Total 1 1450 Balance 699 1000 400 Weight 56.245 kg 65 kg Intake: IV 700 2200 300 Sodium Chloride 0.9% 1, 700 1200 300 000 ml @ 100 mls/hr IV . Q10H [facility] Rx#:[id number] Sodium Chloride 0.9% 1, 1000 000 ml @ 999 mls/hr IV . Q1H1M [facility] Rx#:[id number] Intake, IV Titration 250 100 Amount Cefepime 2 gm In Sodium 100 Chloride 0.9% 100 ml @ 200 mls/hr IVPB Q12HR [facility] Rx#:[id number] Vancomycin 1,000 mg In 250 Sodium Chloride 0.9% 250 ml @ 125 mls/hr IVPB Q8H [facility] Rx#:[id number] Output: Urine 1 1450 - Exam Review of Systems CONSTITUTIONAL: Well-developed no acute respiratory distress. No fever, no chills. EYES: No icterus sclerae, no conjunctivitis. EARS, NOSE, MOUTH, THROAT, and FACE: No sore throat, lymphadenopathy, carotid bruits or deformity. RESPIRATORY: Mild shortness of breath with cough. Sternotomy CARDIOVASCULAR: Positive chest pain positive shortness of breath no anginal symptoms no palpitation lately. GASTROINTESTINAL: Mild abdominal pain with nausea no vomiting no diarrhea this point no active GI bleed. GENITOURINARY: Negative for Hematuria or UTI, no kidney stones. INTEGUMENT/BREAST: Negative for any muscular injury with mild osteoarthritis.. HEMATOLOGIC/LYMPHATIC: Negative for bleed or purpura. MUSCULOSKELTAL: Multiple arthralgia and myalgia from RA. NEURLOGICAL: No LOC, Sz or syncope, blurred vision dizziness or abnormality.. BEHAVIORAL/PSYCH: Negative. ENDOCRINE: Negative. Physical examination General Appearance: Alert, cooperative, no distress, appears stated age. Patient resting comfortably in the ICU bed. Neck HEENT: Supple, no lymphadenopathy, no thyroid enlargement, no carotid bruits. Lungs: Decreased breath sound bilaterally with fine rhonchi no crackles or wheezes. Chest Wall: Decrease expansion with deep inspiration positive tenderness over the incision site from her sternotomy no other deformity was found just mild bruises around the incision site. Heart: Irregular rhythm and rate S1-S2 positive history positive mitral valve click. Back: Symmetric, no curvature, ROM normal, no CVA tenderness. Abdomen: Soft, non-tender, bowel sounds active all four quadrants, no masses, no organomegaly. Extremities: Extremities normal, atraumatic, no cyanosis or edema. Pulses: 2+ and symmetric. Skin: Skin color, texture, tugor normal, no rashes or lesions. Neurologic: Alert oriented x3 cranial nerves II through XII intact, no motor deficit, no abnormal balance or gait. - Labs CBC & Chem 7: 11/29/19 05:07 11/29/19 05:07 Labs: Abnormal Lab Results - Last 24 Hours (Table) 11/28/19 11/28/19 11/28/19 Range/Units 15:10 15:30 19:48 WBC (3.8-10.6) k/uL RBC (3.80-5.40) m/uL Hgb (11.4-16.0) gm/dL Hct (34.0-46.0) % MCV (80.0-100.0) fL MCHC (31.0-37.0) g/dL Neutrophils # (1.3-7.7) k/uL INR (<1.2) Sodium 133 L (137-145) mmol/L Chloride (98-107) mmol/L Carbon Dioxide (22-30) mmol/L Glucose 100 H (74-99) mg/dL Calcium 8.0 L (8.4-10.2) mg/dL AST 39 H (14-36) U/L Troponin I 0.473 H* 0.502 H* (0.000-0.034) ng/mL Total Protein (6.3-8.2) g/dL Albumin 3.1 L (3.5-5.0) g/dL 11/29/19 11/29/19 11/29/19 Range/Units 05:07 05:07 05:07 WBC 12.0 H (3.8-10.6) k/uL RBC 2.68 L (3.80-5.40) m/uL Hgb 8.3 L D (11.4-16.0) gm/dL Hct 27.1 L (34.0-46.0) % MCV 101.0 H D (80.0-100.0) fL MCHC 30.4 L (31.0-37.0) g/dL Neutrophils # 9.9 H (1.3-7.7) k/uL INR 1.2 H (<1.2) Sodium 136 L (137-145) mmol/L Chloride 111 H (98-107) mmol/L Carbon Dioxide 18 L (22-30) mmol/L Glucose (74-99) mg/dL Calcium 8.2 L (8.4-10.2) mg/dL AST (14-36) U/L Troponin I (0.000-0.034) ng/mL Total Protein 5.8 L (6.3-8.2) g/dL Albumin 2.7 L (3.5-5.0) g/dL Microbiology - Last 24 Hours (Table) 11/28/19 08:00 Blood Culture Gram Stain - Preliminary Blood Blood Culture - Preliminary Group D Enterococcus 11/28/19 08:00 Blood Culture - Final Blood Assessment and Plan Plan: 1. Sepsis and group D enterococcus bacteremia with recent valve replacement, treating for endocarditis. Continue cefepime and vancomycin, repeat blood cultures in progress, consults with cardiology, ID and general foreman appreciated. Patient is status post JOSE L. 2. Sepsis most likely due to endocarditis from recent mitral valve replacement. 3. Chronic atrial fibrillation. Continue Eliquis, Tikosyn and metoprolol. 4. Recent TIA, no symptoms present. 5. Hypertension. Continue Tikosyn and metoprolol. 6. Hyperlipidemia: Patient is on Crestor 40 mg a day. 7. RA: Has been on methotrexate and small dose of prednisone both have been he ld for now. 8. Recurrent depression. Continue Lexapro 10 mg a day. 9. Elevated troponin: Not a clear whether this is hypoperfusion shortly after surgery or related to non-ST TN Will repeat troponin tomorrow morning and consult cardiology. 10. Elevated lipase: With possible mild pancreatitis ultrasound of the liver and gallbladder normal. 11. Hyperglycemia: Continue patient on diet control. 12. GI prophylaxis: Patient will be on pantoprazole. 13. DVT prophylaxis: Patient is on anticoagulation currently. CODE STATUS: Full code. Discharge plan: Home with VNA Impression and plan of care have been directed as dictated by the signing physician. Juliette Terrazas nurse practitioner acting as scribe for signing physician.
[2019-11-29] MEDS: MULTIVITAMINS, THERA 1 EACH TAB PO SCH (12:13)
[2019-11-29] MEDS: CHOLECALCIFEROL 1,000 UNIT TAB PO SCH (12:13)
[2019-11-29] MEDS: FERROUS SULFATE 325 MG TAB PO SCH (12:13)
[2019-11-29] MEDS: CALCIUM CARBONATE 500 MG CHEWABLE PO SCH (12:13)
[2019-11-29] MEDS ORDERED: VANCOMYCIN TROUGH DUE 1 EACH MISC MISCELLANE ONE (17:00)
--- NOTE | 2019-11-29 17:23 | PN ---
PROGRESS NOTE DATE OF SERVICE: 11/29/2019 REASON FOR FOLLOWUP: Fever with Enterococcus bacteremia. INTERVAL HISTORY: The patient is currently afebrile. The patient is breathing comfortably. The patient denies having any chest pain or shortness of breath or cough. No nausea, vomiting. No abdominal pain or diarrhea. PHYSICAL EXAMINATION: Her blood pressure is 140/69 with a pulse of 99, temperature of 97.7. She is 97% on room air. General description is an elderly female lying in bed in no distress. RESPIRATORY SYSTEM: Unlabored breathing with decreased breath sounds at the base. No wheeze. HEART: S1, S2. Regular rate and rhythm. ABDOMEN: Soft. No tenderness. LABS: Hemoglobin 8.3, white count 12.0. BUN of 12, creatinine 0.54. Urine has been negative. DIAGNOSTIC IMPRESSION AND PLAN: Patient with Enterococcus faecalis bacteremia in this patient who recently did have mitral valve replacement. JOSE L did not show any evidence of vegetation. Patient's UA has been negative. CT scan of abdomen and pelvis will be done to rule out any intraabdominal source of this bacteremia. Antibiotic will be adjusted to Unasyn 3 grams q.6 and continue the vancomycin until sensitivities are finalized. Continue with supportive care. MMODL / IJN: [id number] /
[2019-11-29] MEDS: AMPICILLIN-SULBACTAM 3 GM in SODIUM CHLORIDE 0.9% 100 ML IVPB SCH (23:47)
[2019-11-30] MEDS: VANCOMYCIN 1,000 MG in SODIUM CHLORIDE 0.9% 250 ML IVPB SCH ×3 (02:03→17:09)
[2019-11-30] MEDS: HYDROcodone/APAP 5-325MG 1 EACH TAB PO PRN ×2 (02:23→22:46)
[2019-11-30] MEDS: SODIUM CHLORIDE 0.9% 1,000 ML IV SCH ×3 (02:23→22:46)
[2019-11-30 04:45] LABS: INR 1.1 (<1.2); Prothrombin Time 11.3 sec (9.0-12.0)
[2019-11-30] MEDS: AMPICILLIN-SULBACTAM 3 GM in SODIUM CHLORIDE 0.9% 100 ML IVPB SCH ×3 (06:19→17:09)
[2019-11-30] MEDS: METHOCARBAMOL 500 MG TAB PO SCH ×3 (06:20→20:05)
[2019-11-30 07:06] LABS: HCT 28.5 % (34.0-46.0); HGB 8.2 gm/dL (11.4-16.0); Hypochromasia Marked; MCH 30.5 pg (25.0-35.0); MCV 105.5 fL (80.0-100.0); Macrocytosis Moderate; Platelet Count 255 k/uL (150-450); RDW 14.6 % (11.5-15.5); WBC 7.5 k/uL (3.8-10.6)
[2019-11-30 07:10] LABS: African American GFR (CKD) >90 (>60 ml/min/1.73 sqM); Anion Gap 8 mmol/L; Blood Urea Nitrogen 7 mg/dL (7-17); Calcium 7.9 mg/dL (8.4-10.2); Carbon Dioxide 18 mmol/L (22-30); Chloride 111 mmol/L (98-107); Glucose 80 mg/dL (74-99); Non-African American GFR(CKD) >90 (>60 ml/min/1.73 sqM); Potassium 3.8 mmol/L (3.5-5.1); Sodium 137 mmol/L (137-145)
[2019-11-30] MEDS ORDERED: Potassium Replacement Protocol 1 EACH MISC MISCELLANE PRN (07:34)
[2019-11-30] MEDS: POTASSIUM CHLORIDE ER 20 MEQ TAB.ER PO SCH ×2 (08:03→09:58)
[2019-11-30] MEDS ORDERED: POTASSIUM CHLORIDE ER 20 MEQ TAB.ER PO SCH (09:00)
[2019-11-30] MEDS: ATORVASTATIN 80 MG TAB PO SCH (09:57)
[2019-11-30] MEDS: ASPIRIN 81 MG PO SCH (09:57)
[2019-11-30] MEDS: FOLIC ACID 1 MG TAB PO SCH (09:57)
[2019-11-30] MEDS: FUROSEMIDE 20 MG TAB PO SCH (09:58)
[2019-11-30] MEDS: MAGNESIUM OXIDE 400 MG TAB PO SCH (09:58)
[2019-11-30] MEDS: POLYETHYLENE GLYCOL 3350 17 GM POWD.PACK PO SCH (09:58)
[2019-11-30] MEDS: SENNOSIDES-DOCUSATE SODIUM 1 EACH TAB PO SCH (09:58)
[2019-11-30] MEDS: PANTOPRAZOLE 40 MG TABLET PO SCH (09:58)
--- NOTE | 2019-11-30 10:27 | PN ---
PROGRESS NOTE PULMONARY/CRITICAL CARE PROGRESS NOTE: DATE OF SERVICE: 11/30/2019 This is a 69-year-old female who was admitted back on the hospital on November 27. She was admitted with a diagnosis of possible endocarditis and sepsis. She had a recent mitral valve replacement at [facility]. The patient carried with her a diagnosis of hyperlipidemia, rheumatoid arthritis, essential hypertension, and TIA. Currently, she is doing well. She is not receiving any supplemental oxygen. Her saline IV is running at 100 mL an hour. She had a blood culture that were positive for group D Enterococcus. She is currently on units as per ID. I dictated yesterday that she had a transesophageal echocardiogram, but looking back, it was a transthoracic echocardiogram, not a transesophageal echocardiogram. Currently, she is doing well. She denies any shortness of breath. She is concerned about getting sick being here in the hospital. I told her we would be able to discharge her as quickly as possible. She was tested for COVID 19, but those results are currently pending. Other than for some mild pain at the surgical site from her recent median sternotomy, she otherwise is doing well. Current vital signs are reviewed they include a temperature 98.1, heart rate 95, respiratory rate 16, blood pressure 119/75 mean 89 saturations on room air 98%. She appears in no acute distress. No audible wheezing, use of accessory muscles or conversational dyspnea. HEENT: Examination is grossly unremarkable. Mucous membranes are moist. No oral lesions. NECK: Supple. Full range of motion. No adenopathy or thyromegaly. Neck veins are flat. CARDIOVASCULAR: Examination reveals regular rhythm and rate. Heart rate in mid 90s. S1, S2 normal. No murmur. RESPIRATORY: Lungs reveal clear breath sounds. No wheezes, rhonchi, or crackles. The incision site is clean and dry. ABDOMEN: Soft, bowel sounds are heard. EXTREMITIES: Intact. No cyanosis, clubbing, or edema. SKIN: Without rash. NEUROLOGIC: Examination is nonfocal. LAB: Data is pending. Currently, white count is 7.5, down from 12, hemoglobin 8.2, hematocrit 28.5, platelet count normal. PT, INR is normal. Sodium and potassium normal. Chloride is 111, CO2 is 18. Anion gap is 8. BUN and creatinine were 7 and 0.53. Microbiology only showing blood cultures from the 20 second being positive for group D enterococci. There are no recent x-rays. MEDICATIONS: Reviewed. In addition to the usual medications, she is on Unasyn. She is also apparently receiving vancomycin. ASSESSMENT: 1. Group D Enterococcus bacteremia/sepsis, without septic shock. 2. Recent mitral valve replacement at [facility] for valvular heart disease. 3. History of valvular heart disease. 4. Chronic atrial fibrillation. 5. History of hyperlipidemia. 6. History of rheumatoid arthritis. 7. History of benign essential hypertension. 8. History of transient ischemic attack. PLAN: The patient did not have a transesophageal echocardiogram, rather the patient did have a transthoracic echocardiogram. There were no vegetations noted on any of the valve leaflets. Currently, the patient is stable clinically. She remains on Unasyn and vancomycin as per ID. Will continue to follow. Prognosis is guarded. Medications are reviewed. No additional recommendations are made. Will continue to follow. MMODL / IJN: [id number] /
--- NOTE | 2019-11-30 11:18 | CONS ---
CONSULTATION CHIEF COMPLAINT: Fever. This is a 69-year-old lady with history of severe mitral regurgitation, who underwent severe mitral regurgitation, persistent atrial fibrillation status post ablation who underwent mitral valve replacement at [facility] recently comes in complains of low-grade fever and not feeling well. The patient, however, did not have any headaches, upper respiratory tract symptoms had mild shortness of breath when she initially presented in the emergency room her temperature was elevated at 103, white cell count was elevated and she was tachycardic with atrial fibrillation with RVR. Temperature was elevated at 103. White cell count was elevated and she was tachycardic with atrial fibrillation with RVR. Her UA was negative. Influenza was negative and COVID test is pending at this time. Blood cultures have come back positive for gram- positive cocci for which I have been asked to see her for possible JOSE L. An echocardiogram showed normal LV functioning mitral valve that is structurally intact. I spoke to Dr. Noyola who is who is going to decide whether the patient needs a JOSE L are not, if and when that decision is made. We will go ahead and perform a JOSE L. I explained these issues at length to the patient. She understands and is in agreement with the plans. She has history of atrial fibrillation. Her heart rate is somewhat poorly controlled at the moment. Will add digoxin to what she is on. PAST MEDICAL HISTORY: Significant for dyslipidemia, atrial fibrillation, GERD, rheumatoid arthritis. PAST SURGICAL HISTORY: Is significant for mitral valve replacement, tonsillectomy, back surgery, atrial fibrillation ablation, cataract surgery. FAMILY HISTORY: Negative for premature coronary artery disease. SOCIAL HISTORY: Negative for current smoking, EtOH abuse, or drug abuse. REVIEW OF SYSTEMS: HEENT: Unremarkable. CARDIAC: As described above. RESPIRATORY: Negative. GI: Negative. GENITOURINARY: Negative. ALLERGY: Negative. SKIN: Negative. MUSCULOSKELETAL: Significant for arthritis. PSYCHOSOCIAL: Negative. ENDOCRINE: Negative. DERMATOLOGY: Negative. ONCOLOGICAL: Negative. CONSTITUTIONAL: Significant for fever. Rest of the system review is not relevant. PHYSICAL EXAM: Heart rate is 100 beats per minute, blood pressure is 130/79, and respiratory rate 18. chest exam reveals diminished air entry at the bases. Heart exam reveals first and second heart sounds, irregular rhythm. Systolic murmur at the apex. Abdomen is soft. Exam of extremities did not reveal any edema. Peripheral pulses are felt. CURRENT MEDICATIONS: Include Eliquis 5 b.i.d., Lipitor, Tikosyn, Lasix 20 mg daily, Robaxin 500 t.i.d., Lopressor 12.5 b.i.d., K-Dur 20 mEq daily. and intravenous vancomycin, renal functions are normal. Tropes are mildly elevated. Hemoglobin is low at 8.2 assessment positive blood cultures in a patient with recent history of mitral valve replacement, rule out infective endocarditis. 1. Permanent atrial fibrillation with poorly controlled ventricular rate. #3. PLAN: I am going to stop the Tikosyn at this time as the patient remains in atrial fibrillation in spite of the tick is in that she had been on all along the patient had a prior atrial fibrillation ablation. He has been not be a bad idea at this time to do the rate control and anticoagulation given her our inability to keep her in sinus rhythm and the JOSE L and I reviewed the echo findings. If Dr. Noyola feels that the patient needs a JOSE L, I am going to perform this. MARTIN / REHANAN: [id number] /
[2019-11-30] MEDS: CHOLECALCIFEROL 1,000 UNIT TAB PO SCH (11:23)
[2019-11-30] MEDS: CALCIUM CARBONATE 500 MG CHEWABLE PO SCH (11:23)
[2019-11-30] MEDS: FERROUS SULFATE 325 MG TAB PO SCH (11:23)
[2019-11-30] MEDS: MULTIVITAMINS, THERA 1 EACH TAB PO SCH (11:23)
--- NOTE | 2019-11-30 11:50 | P.PN ---
Subjective Progress Note Date: 11/30/19 69-year-old female one of my office patient of known very well with multiple medical problem known to have history of A. fib, hypertension, rheumatoid arthritis, hyperlipidemia, anemia was hospitalized in October for TIA patient was diagnosed with severe mitral regurgitation and up having bias to take valve at [facility] on November 14 and was released home 2 days ago while she was still having low-grade temperature and not feeling well. Patient continued to have fever and chills at home she woke up this morning having significant back pain with vomiting and low blood pressure with fever and chills ended up coming to the emergency department her temperature was reported at 102 patient had white blood cells 22,000 apparently was told before that before she left the hospital that the area where her narrative valve was removed showed some bacterial infection but no further culture was positive at the time patient was sent home without antibiotics. Patient was evaluated in the emergency department and felt her symptom can be related to sepsis from endocarditis [facility] was contacted and they're and her lack down for the COVID-19, they're not accepting any transfer or any patient from THE [facility]. Patient will be seen infectious disease and cardiology will be started on IV antibiotic for endocarditis will be admitted to the ICU will see precision machining instructor as well. 11/28: Patient remains in intensive care unit. She is currently on cefepime and vancomycin followed by Dr. Snow and treated for suspected endocarditis. Blood cultures positive for group D enterococcus. Repeat blood cultures have been ordered. Patient remains in droplet isolation and COVID-19 testing remains pending. Repeat lab work today reveals white count of 12, hemoglobin 8.3, platelet count 266, INR 1.2. Sodium 136, potassium 3.9, chloride 111, CO2 18, BUN 12 and creatinine 0.54. JOSE L done by Dr. Lincoln reveals EF of 60-65% with mild concentric left ventricular hypertrophy, mild tricuspid regurgitation. There is no evidence of vegetation. Patient has been afebrile since admission, heart rate 97, blood pressure 106/54, pulse ox 97% on room air. 11/29: Patient remains in intensive care unit. Patient has been afebrile since admission, heart rate 95, blood pressure 119/75, pulse ox 98% on room air. Repeat lab work reveals study BC 7.5, hemoglobin 8.2, platelet count 255. Sodium 137, potassium 3.8, chloride 111, CO2 18, BUN 7 creatinine 0.53. Patient is followed by cardiology. Dr. Snow has ordered CAT scan of the abdomen and pelvis to further identify source of bacteremia. Antibiotics changed to Unasyn 3 g every 6 hours. Repeat blood cultures from November 28 are also positive. Heide amador has had no signs of bleeding. Patient does have history of chronic anemia and on ferrous sulfate and folic acid. Eliquis will be continued, stool for occult blood will be checked. COVID-19 remains pending. Objective - Vital Signs Vital signs: Vital Signs Temp 98.1 F 11/30/19 08:00 Pulse 100 11/30/19 10:00 Resp 21 11/30/19 10:00 BP 129/79 11/30/19 10:00 Pulse Ox 98 11/30/19 10:00 Intake & Output 11/29/19 11/30/19 11/30/19 18:59 06:59 18:59 Intake Total 1790 1690 650 Output Total 1150 2100 200 Balance 640 -410 450 Weight 66.4 kg Intake: IV 1200 1200 400 Sodium Chloride 0.9% 1, 1200 1200 400 000 ml @ 100 mls/hr IV . Q10H [facility] Rx#:[id number] Intake, IV Titration 350 250 250 Amount Cefepime 2 gm In Sodium 100 Chloride 0.9% 100 ml @ 200 mls/hr IVPB Q12HR [facility] Rx#:[id number] Vancomycin 1,000 mg In 250 250 250 Sodium Chloride 0.9% 250 ml @ 125 mls/hr IVPB Q8H [facility] Rx#:[id number] Oral 240 240 Output: Urine 1150 2100 200 Other: Voiding Method Toilet Toilet Toilet - Exam Review of Systems CONSTITUTIONAL: Well-developed no acute respiratory distress. No fever, no chills. EYES: No icterus sclerae, no conjunctivitis. EARS, NOSE, MOUTH, THROAT, and FACE: No sore throat, lymphadenopathy, carotid bruits or deformity. RESPIRATORY: Denies shortness of breath, denies cough. Sternotomy CARDIOVASCULAR: Positive chest pain positive shortness of breath no anginal symptoms no palpitation lately. GASTROINTESTINAL: Mild abdominal pain with nausea no vomiting no diarrhea this point no active GI bleed. GENITOURINARY: Negative for Hematuria or UTI, no kidney stones. INTEGUMENT/BREAST: Negative for any muscular injury with mild osteoarthritis.. HEMATOLOGIC/LYMPHATIC: Negative for bleed or purpura. MUSCULOSKELTAL: Multiple arthralgia and myalgia from RA. NEURLOGICAL: No LOC, Sz or syncope, blurred vision dizziness or abnormality.. BEHAVIORAL/PSYCH: Negative. ENDOCRINE: Negative. Physical examination General Appearance: Alert, cooperative, no distress, appears stated age. Patient resting comfortably in the chair. No respiratory distress is noted. Neck HEENT: Supple, no lymphadenopathy, no thyroid enlargement, no carotid bruits. Lungs: Decreased breath sound bilaterally with fine rhonchi no crackles or wheezes. Chest Wall: Decrease expansion with deep inspiration positive tenderness over the incision site from her sternotomy no other deformity was found just mild bruises around the incision site. Heart: Irregular rhythm and rate S1-S2 positive history positive mitral valve click. Back: Symmetric, no curvature, ROM normal, no CVA tenderness. Abdomen: Soft, non-tender, bowel sounds active all four quadrants, no masses, no organomegaly. Extremities: Extremities normal, atraumatic, no cyanosis or edema. Pulses: 2+ and symmetric. Skin: Skin color, texture, tugor normal, no rashes or lesions. Neurologic: Alert oriented x3 cranial nerves II through XII intact, no motor deficit, no abnormal balance or gait. - Labs CBC & Chem 7: 11/30/19 04:09 11/30/19 04:09 Labs: Abnormal Lab Results - Last 24 Hours (Table) 11/30/19 11/30/19 Range/Units 04:09 04:09 RBC 2.70 L (3.80-5.40) m/uL Hgb 8.2 L (11.4-16.0) gm/dL Hct 28.5 L (34.0-46.0) % MCV 105.5 H (80.0-100.0) fL MCHC 29.0 L (31.0-37.0) g/dL Chloride 111 H (98-107) mmol/L Carbon Dioxide 18 L (22-30) mmol/L Calcium 7.9 L (8.4-10.2) mg/dL Microbiology - Last 24 Hours (Table) 11/29/19 05:07 Blood Culture Gram Stain - Preliminary Blood 11/29/19 05:07 Blood Culture - Final Blood 11/28/19 20:20 Blood Culture - Preliminary Blood No Growth after 24 hours 11/29/19 14:30 Urine Culture - Preliminary Urine,Voided 11/28/19 08:00 Blood Culture Gram Stain - Preliminary Blood Blood Culture - Preliminary Group D Enterococcus Assessment and Plan Plan: 1. Sepsis and group D enterococcus bacteremia with recent valve replacement, unclear etiology, ruled out endocarditis. Antibiotics have been changed to Unasyn, repeat blood cultures in progress, consults with cardiology, ID and precision machining instructor appreciated. Patient is status post JOSE L. CT of the abdomen and pelvis to be completed today. 2. Sepsis with recent mitral valve replacement. 3. Chronic atrial fibrillation. Continue Eliquis, Tikosyn and metoprolol. Cardiology consult appreciated. 4. Recent TIA, no symptoms present. 5. Hypertension. Continue Tikosyn and metoprolol. 6. Hyperlipidemia: Patient is on Crestor 40 mg a day. 7. RA: Has been on methotrexate and small dose of prednisone both have been held for now. 8. Recurrent depression. Continue Lexapro 10 mg a day. 9. Elevated troponin: Not a clear whether this is hypoperfusion shortly after surgery or related to non-ST PA Will repeat troponin tomorrow morning and consult cardiology. 10. Elevated lipase: With possible mild pancreatitis ultrasound of the liver and gallbladder normal. 11. Hyperglycemia: Continue patient on diet control. 12. GI prophylaxis: Patient will be on pantoprazole. 13. DVT prophylaxis: Patient is on anticoagulation currently. CODE STATUS: Full code. Discharge plan: Home with VNA Impression and plan of care have been directed as dictated by the signing physician. Juliette Terrazas nurse practitioner acting as scribe for signing physician.
--- NOTE | 2019-11-30 15:52 | PN ---
PROGRESS NOTE DATE OF SERVICE: 11/30/2019 REASON FOR FOLLOWUP: Enterococcus faecalis bacteremia. INTERVAL HISTORY: The patient is currently afebrile. The patient has been breathing comfortably. The patient denies having any chest pain or shortness of breath or cough. No nausea, no vomiting, no abdominal pain or diarrhea. PHYSICAL EXAMINATION: Blood pressure 116/76 with a pulse of 107, temperature 98. She is 95% on 2 L nasal cannula. General description is an elderly female up in the chair in no distress. RESPIRATORY SYSTEM: Unlabored breathing. Clear to auscultation anteriorly. HEART: S1, S2. Regular rate and rhythm. ABDOMEN: Soft. No tenderness. EXTREMITIES: No edema of the feet. LABS: Hemoglobin 8.2, white count 7.5, BUN of 7, creatinine 0.53. Blood culture with Enterococcus faecalis, a sensitive pathogen. DIAGNOSTIC IMPRESSION AND PLAN: Patient with Enterococcus faecalis bacteremia in this patient with recent mitral valve replacement. Echocardiogram did not show any abnormality. However, the patient currently has no obvious focus CT of abdomen and pelvis could not be completed, as the patient is in COVID-19 isolation. Urine has been negative, with blood culture coming back positive on 11/29/2019 as well. She will benefit from JOSE L. This will be communicated with Cardiology. Antibiotic will be adjusted to ampicillin and gentamicin and we will monitor her clinical course closely. Blood culture will be repeated to document clearance of her bacteremia. MMODL / IJN: [id number] /
[2019-11-30] MEDS: DOFETILIDE 250 MCG CAP PO SCH (20:04)
[2019-11-30] MEDS: METOPROLOL TARTRATE 12.5 MG TAB PO SCH (20:04)
[2019-11-30] MEDS: APIXABAN 5 MG TAB PO SCH (20:04)
[2019-12-01] MEDS: AMPICILLIN-SULBACTAM 3 GM in SODIUM CHLORIDE 0.9% 100 ML IVPB SCH ×2 (00:49→06:09)
[2019-12-01] MEDS: SODIUM CHLORIDE 0.9% 1,000 ML IV SCH (00:50)
[2019-12-01] MEDS: VANCOMYCIN 1,000 MG in SODIUM CHLORIDE 0.9% 250 ML IVPB SCH (02:24)
[2019-12-01 04:49] LABS: HCT 25.6 % (34.0-46.0); Hypochromasia Moderate; MCH 30.5 pg (25.0-35.0); MCHC 31.1 g/dL (31.0-37.0); Mean Platelet Volume 8.2; Platelet Count 214 k/uL (150-450); RBC 2.62 m/uL (3.80-5.40); RDW 14.8 % (11.5-15.5); WBC 6.3 k/uL (3.8-10.6)
[2019-12-01 04:50] LABS: MCV 97.9 fL (80.0-100.0)
[2019-12-01 04:51] LABS: African American GFR (CKD) >90 (>60 ml/min/1.73 sqM); Anion Gap 6 mmol/L; Blood Urea Nitrogen 4 mg/dL (7-17); Calcium 8.1 mg/dL (8.4-10.2); Carbon Dioxide 20 mmol/L (22-30); Chloride 111 mmol/L (98-107); Glucose 86 mg/dL (74-99); Non-African American GFR(CKD) >90 (>60 ml/min/1.73 sqM); Potassium 3.6 mmol/L (3.5-5.1); Sodium 137 mmol/L (137-145)
[2019-12-01] MEDS: METHOCARBAMOL 500 MG TAB PO SCH ×3 (06:09→22:04)
[2019-12-01] MEDS ORDERED: GENTAMICIN PER PHARMACY MISCELLANE SCH (06:45)
[2019-12-01] MEDS ORDERED: GENTAMICIN IN NACL ISO-OSM PMX 80 MG in SALINE 1 100ML.BAG IVPB ONE (07:15)
--- NOTE | 2019-12-01 10:39 | PN ---
PROGRESS NOTE PULMONARY/CRITICAL CARE PROGRESS NOTE: DATE OF SERVICE: 12/01/2019 This is a 69-year-old female who was admitted back on November 27. She was admitted with a diagnosis of possible endocarditis/sepsis. The patient had a recent mitral valve replacement at [facility]. She was discharged home and then readmitted with the diagnosis of fever. The patient was initially seen by my partner, Dr. Abel. She had a transthoracic echocardiogram which did not show any valvular vegetations. She has a history of hyperlipidemia, rheumatoid arthritis, essential hypertension, and TIA. Currently, she is not receiving any supplemental oxygen. Her IV is at 100 mL an hour, which is failing. She is currently on Unasyn and vancomycin for Enterococcus faecalis in her blood. The source of that and bacteria is not yet known. She is scheduled for an ultrasound of the abdomen and a transesophageal echocardiogram today. Other than that, and other than feeling a bit under the weather, she is doing reasonably well. Denies any fever or chills. She is not coughing. There is no chest pain or chest discomfort. There is some mild tenderness at the surgical site. Current vital signs are reviewed. They include a temperature 98.1, heart rate 96, respiratory rate 16, blood pressure 118/69 mean 85, room air saturation 98%. Appears in no acute distress. HEENT: Examination is grossly unremarkable. NECK: Supple, full range of motion. No adenopathy, thyromegaly or neck vein distention. CARDIOVASCULAR: Examination reveals regular rhythm and rate. Heart rate in the mid 80s to low 90s. S1, S2 normal. Heart sounds are distant. The previous median sternotomy site is dry and without drainage. There is no redness. LUNGS: Clear. Breath sounds equal bilaterally. No wheezes, rhonchi, or crackles. ABDOMEN: Soft, bowel sounds are heard. EXTREMITIES: Intact. No cyanosis, clubbing, or edema. SKIN: Without rash. NEUROLOGIC: Examination is brief but nonfocal. LABS: Reviewed. White count 6.3, hemoglobin 8, hematocrit 25.6, platelet count 314,000, sodium 137, potassium 3.6, chloride 111, CO2 is 20, anion gap is 6. BUN and creatinine were 4 and 0.49. The rest of the labs are reviewed. Microbiology is showing a group D enterococcus or enterococcus faecalis in the blood from November 27. No recent chest x-ray to report. Medications are reviewed. ASSESSMENT: 1. Group D Enterococcus bacteremia/sepsis, without septic shock, source unclear. 2. Recent mitral valve replacement at [facility] for valvular heart disease. 3. History of valvular heart disease. 4. Chronic atrial fibrillation. 5. Hyperlipidemia. 6. History of rheumatoid arthritis. 7. History of benign essential hypertension. 8. History of transient ischemic attack. 9. Anticipated ultrasound of the abdomen and transesophageal echocardiogram today. PLAN: The patient is doing well. Will await the results of the ultrasound and transesophageal echocardiogram. The results of transthoracic echocardiogram was reviewed. No valvular vegetations. Overall, clinically she looks well. Will continue to follow. Prognosis is guarded. MMODL / IJN: [id number] /
[2019-12-01] MEDS: AMPICILLIN 2,000 MG in SODIUM CHLORIDE 0.9% 100 ML IVPB SCH ×4 (11:29→22:04)
--- NOTE | 2019-12-01 11:54 | P.PN ---
Subjective Progress Note Date: 12/01/19 69-year-old female one of my office patient of known very well with multiple medical problem known to have history of A. fib, hypertension, rheumatoid arthritis, hyperlipidemia, anemia was hospitalized in October for TIA patient was diagnosed with severe mitral regurgitation and up having bias to take valve at [facility] on November 14 and was released home 2 days ago while she was still having low-grade temperature and not feeling well. Patient continued to have fever and chills at home she woke up this morning having significant back pain with vomiting and low blood pressure with fever and chills ended up coming to the emergency department her temperature was reported at 102 patient had white blood cells 22,000 apparently was told before that before she left the hospital that the area where her narrative valve was removed showed some bacterial infection but no further culture was positive at the time patient was sent home without antibiotics. Patient was evaluated in the emergency department and felt her symptom can be related to sepsis from endocarditis [facility] was contacted and they're and her lack down for the COVID-19, they're not accepting any transfer or any patient from [facility]. Patient will be seen infectious disease and cardiology will be started on IV antibiotic for endocarditis will be admitted to the ICU will see hydraulic jack operator as well. 11/28: Patient remains in intensive care unit. She is currently on cefepime and vancomycin followed by Dr. Snow and treated for suspected endocarditis. Blood cultures positive for group D enterococcus. Repeat blood cultures have been ordered. Patient remains in droplet isolation and COVID-19 testing remains pending. Repeat lab work today reveals white count of 12, hemoglobin 8.3, platelet count 266, INR 1.2. Sodium 136, potassium 3.9, chloride 111, CO2 18, BUN 12 and creatinine 0.54. Echocardiogram reveals EF of 60-65% with mild concentric left ventricular hypertrophy, mild tricuspid regurgitation. There is no evidence of vegetation. Patient has been afebrile since admission, heart rate 97, blood pressure 106/54, pulse ox 97% on room air. 11/29: Patient remains in intensive care unit. Patient has been afebrile since admission, heart rate 95, blood pressure 119/75, pulse ox 98% on room air. Repeat lab work reveals study BC 7.5, hemoglobin 8.2, platelet count 255. Sodium 137, potassium 3.8, chloride 111, CO2 18, BUN 7 creatinine 0.53. Patient is followed by cardiology. Dr. Snow has ordered CAT scan of the abdomen and pelvis to further identify source of bacteremia. Antibiotics changed to Unasyn 3 g every 6 hours. Repeat blood cultures from November 28 are also positive. Patient has had no signs of bleeding. Patient does have history of chronic anemia and on ferrous sulfate and folic acid. Eliquis will be continued, stool for occult blood will be checked. COVID-19 remains pending. 11/30: CAT scan of abdomen and pelvis was unable to be done as patient has pending results of COVID-19 testing and is now on hold. COVID-19 testing is negative. Cardiology has been requested to perform JOSE L which will hopefully be completed today. Patient remains afebrile, heart rate 96, blood pressure 110/73, pulse ox 96% on room air. Repeat blood work reveals WBC 6.3, hemoglobin 8, BUN 4 creatinine 0.49. Chloride 111 CO2 20. Patient is currently on Unasyn and gentamicin. Repeat blood cultures have been ordered for tomorrow. Objective - Vital Signs Vital signs: Vital Signs Temp 98.1 F 12/01/19 04:00 Pulse 96 12/01/19 07:00 Resp 16 12/01/19 07:00 BP 118/69 12/01/19 07:00 Pulse Ox 98 12/01/19 07:00 Intake & Output 11/30/19 12/01/19 12/01/19 18:59 06:59 18:59 Intake Total 2260 1300 100 Output Total 2001 152 Balance 258 1148 100 Weight 66.8 kg Intake: IV 1200 1200 100 Sodium Chloride 0.9% 1, 1200 1200 100 000 ml @ 100 mls/hr IV . Q10H [facility] Rx#:[id number] Intake, IV Titration 700 Amount Ampicillin-Sulbactam 3 gm 200 In Sodium Chloride 0.9% 100 ml @ 200 mls/hr IVPB Q6HR [facility] Rx#:[id number] Vancomycin 1,000 mg In 500 Sodium Chloride 0.9% 250 ml @ 125 mls/hr IVPB Q8H [facility] Rx#:[id number] Oral 360 100 Output: Urine 2000 150 Stool 2 2 Other: Voiding Method Toilet Toilet # Voids 2 1 1 - Exam Review of Systems CONSTITUTIONAL: denies fatigue, No fever, no chills. EYES: No icterus sclerae, no conjunctivitis. EARS, NOSE, MOUTH, THROAT, and FACE: No sore throat, lymphadenopathy, carotid bruits or deformity. RESPIRATORY: Denies shortness of breath, denies cough. Sternotomy CARDIOVASCULAR: Positive chest pain positive shortness of breath no anginal symptoms no palpitation lately. GASTROINTESTINAL: Mild abdominal pain with nausea no vomiting no diarrhea this point no active GI bleed. GENITOURINARY: Negative for Hematuria or UTI, no kidney stones. INTEGUMENT/BREAST: Negative for any muscular injury with mild osteoarthritis.. HEMATOLOGIC/LYMPHATIC: Negative for bleed or purpura. MUSCULOSKELTAL: Multiple arthralgia and myalgia from RA. NEURLOGICAL: No LOC, Sz or syncope, blurred vision dizziness or abnormality.. BEHAVIORAL/PSYCH: Negative. ENDOCRINE: Negative. Physical examination General Appearance: Alert, cooperative, no distress, appears stated age. Patient resting comfortably in the chair. No respiratory distress is noted. Neck HEENT: Supple, no lymphadenopathy, no thyroid enlargement, no carotid bruits. Lungs: Decreased breath sound bilaterally with fine rhonchi no crackles or wheezes. Chest Wall: Decrease expansion with deep inspiration positive tenderness over the incision site from her sternotomy no other deformity was found just mild bruises around the incision site. Heart: Irregular rhythm and rate S1-S2 positive history positive mitral valve click. Abdomen: Soft, non-tender, bowel sounds active all four quadrants, no masses, no organomegaly. Extremities: Extremities normal, atraumatic, no cyanosis or edema. Pulses: 2+ and symmetric. Skin: Skin color, texture, tugor normal, no rashes or lesions. Neurologic: Alert oriented x3 cranial nerves II through XII intact, no motor deficit, no abnormal balance or gait. - Labs CBC & Chem 7: 12/01/19 04:18 12/01/19 04:18 Labs: Abnormal Lab Results - Last 24 Hours (Table) 12/01/19 12/01/19 Range/Units 04:18 04:18 RBC 2.62 L (3.80-5.40) m/uL Hgb 8.0 L (11.4-16.0) gm/dL Hct 25.6 L (34.0-46.0) % Chloride 111 H (98-107) mmol/L Carbon Dioxide 20 L (22-30) mmol/L BUN 4 L (7-17) mg/dL Creatinine 0.49 L (0.52-1.04) mg/dL Calcium 8.1 L (8.4-10.2) mg/dL Microbiology - Last 24 Hours (Table) 11/28/19 20:20 Blood Culture - Preliminary Blood No Growth after 48 hours 11/29/19 14:30 Urine Culture - Final Urine,Voided 11/28/19 08:00 Blood Culture Gram Stain - Final Blood Blood Culture - Final Enterococcus faecalis 11/29/19 05:07 Blood Culture Gram Stain - Preliminary Blood Blood Culture - Preliminary Group D Enterococcus Assessment and Plan Plan: 1. Sepsis and group D enterococcus bacteremia with recent valve replacement, unclear etiology, rule out endocarditis. Antibiotics have been changed to Unasyn, repeat blood cultures in progress, consults with cardiology, ID and hydraulic jack operator appreciated. JOSE L to be performed by supplier quality engineer today. COVID-19 negative. 2. Sepsis with recent mitral valve replacement. 3. Chronic atrial fibrillation. Continue Eliquis, Tikosyn and metoprolol. Cardiology consult appreciated. 4. Recent TIA, no symptoms present. 5. Hypertension. Continue Tikosyn and metoprolol. 6. Hyperlipidemia: Patient is on Crestor 40 mg a day. 7. RA: Has been on methotrexate and small dose of prednisone both have been held for now. 8. Recurrent depression. Continue Lexapro 10 mg a day. 9. Elevated troponin: Not a clear whether this is hypoperfusion shortly after surgery or related to non-ST NH Will repeat troponin tomorrow morning and consult cardiology. 10. Elevated lipase: With possible mild pancreatitis ultrasound of the liver and gallbladder normal. 11. Hyperglycemia: Continue patient on diet control. 12. GI prophylaxis: Patient will be on pantoprazole. 13. DVT prophylaxis: Patient is on anticoagulation currently. CODE STATUS: Full code. Discharge plan: Home with [facility] Impression and plan of care have been directed as dictated by the signing physician. Juliette Terrazas nurse practitioner acting as scribe for signing physician.
[2019-12-01] MEDS: SENNOSIDES-DOCUSATE SODIUM 1 EACH TAB PO SCH (12:01)
[2019-12-01] MEDS ORDERED: fentaNYL (PF) 50 MCG/ML 2 ML AMP IVP STA (12:38)
[2019-12-01] MEDS ORDERED: MIDAZOLAM 2 MG/2 ML VIAL IV STA (12:39)
[2019-12-01] MEDS: POLYETHYLENE GLYCOL 3350 17 GM POWD.PACK PO SCH (12:49)
[2019-12-01] MEDS: POTASSIUM CHLORIDE ER 20 MEQ TAB.ER PO SCH (12:56)
[2019-12-01] MEDS: CHOLECALCIFEROL 1,000 UNIT TAB PO SCH (12:57)
[2019-12-01] MEDS: FERROUS SULFATE 325 MG TAB PO SCH (12:57)
[2019-12-01] MEDS: MAGNESIUM OXIDE 400 MG TAB PO SCH (12:57)
[2019-12-01] MEDS: CALCIUM CARBONATE 500 MG CHEWABLE PO SCH (12:57)
[2019-12-01] MEDS: ATORVASTATIN 80 MG TAB PO SCH (12:57)
[2019-12-01] MEDS: MULTIVITAMINS, THERA 1 EACH TAB PO SCH (12:58)
[2019-12-01] MEDS: FUROSEMIDE 20 MG TAB PO SCH (12:58)
[2019-12-01] MEDS: APIXABAN 5 MG TAB PO SCH ×2 (12:58→21:01)
[2019-12-01] MEDS: ASPIRIN 81 MG PO SCH (12:58)
[2019-12-01] MEDS: DOFETILIDE 250 MCG CAP PO SCH ×2 (12:59→21:02)
[2019-12-01] MEDS: METOPROLOL TARTRATE 12.5 MG TAB PO SCH ×2 (13:01→21:01)
[2019-12-01] MEDS: FOLIC ACID 1 MG TAB PO SCH (13:01)
[2019-12-01] MEDS: PANTOPRAZOLE 40 MG TABLET PO SCH (13:01)
--- NOTE | 2019-12-01 13:15 | ECHOT ---
TRANSESOPHAGEAL ECHOCARDIOGRAM INDICATION: Positive blood cultures, rule out infective endocarditis in a patient that had mitral valve replacement recently. PROCEDURE NOTE: After obtaining informed consent, transesophageal echocardiogram was performed in left lateral position using an Omniplane probe. Local and IV sedation were obtained using 2 mg of Versed and 50 mcg of fentanyl. The patient tolerated the procedure well without any obvious immediate complication. The patient received moderate conscious sedation and total sedation time was 10 minutes. FINDINGS: 1. Mitral valve is a bioprosthetic valve. The mitral valve struts are stable. I do not see any periprosthetic valvular leak. There is a mild central mitral regurgitation noted. The mitral valve leaflets are free of any vegetation. 2. Left atrium appears mildly enlarged. 3. Right atrium and right ventricle seem within normal limits. 4. Tricuspid valve appears normal. There is mild tricuspid regurgitation noted. 5. There is no evidence of [id number] shunt across the interatrial septum by color- flow Doppler. 6. Left ventricle has normal size and systolic function with an ejection fraction of 60%. There are echodense lesions noted within the left ventricle which probably represents remnants of her own chordal structure. 7. Aortic valve is a 3-leaflet valve. There is no evidence of aortic stenosis or regurgitation. CONCLUSION: No evidence of vegetation and normally functioning bioprosthetic mitral valve with mild central mitral regurgitation. MMODL / IJN: [id number] /
[2019-12-01] MEDS: HYDROcodone/APAP 5-325MG 1 EACH TAB PO PRN (15:26)
[2019-12-01] MEDS ORDERED: POTASSIUM CHLORIDE ER 20 MEQ TAB.ER PO ONE (16:00)
--- NOTE | 2019-12-01 16:56 | PN ---
PROGRESS NOTE DATE OF SERVICE: 12/01/2019 REASON FOR FOLLOWUP: Enterococcus faecalis bacteremia. INTERVAL HISTORY: The patient is currently afebrile. The patient is breathing comfortably. The patient denies having any chest pain or shortness of breath or cough. No nausea, no vomiting. No abdominal pain and no diarrhea. PHYSICAL EXAMINATION: Her blood pressure is 175/82 with a pulse of 100, temperature 98.6. She is 96% on room air. General description is an elderly female lying in bed in no distress. RESPIRATORY SYSTEM: Unlabored breathing. Clear to auscultation anteriorly. HEART: S1, S2. Regular rate and rhythm. ABDOMEN: Soft. No tenderness. EXTREMITIES: No edema of the feet. LABS: Hemoglobin is 8.0, white count 6.3, BUN of 4, creatinine 0.49. JOSE L did not show any mitral valve vegetation. DIAGNOSTIC IMPRESSION AND PLAN: Patient with Enterococcus faecalis bacteremia in this patient who did have recent mitral valve replacement with concern for possible endocarditis, though JOSE L was negative. A CT of abdomen and pelvis has been ordered to rule out any intraabdominal source. Antibiotic is currently in the form of ampicillin and gentamycin; to continue. Duration of antibiotics will depend upon the CT report and when the patient clears her bacteremia. PICC line will be placed. Blood culture has been ordered for today as well as tomorrow morning. Continue with supportive care. MMODL / IJN: [id number] /
[2019-12-01] MEDS: GENTAMICIN IVPB SCH (17:30)
[2019-12-01] MEDS: SODIUM CHLORIDE 0.9% IVPB SCH (17:30)
[2019-12-01] MEDS: ACETAMINOPHEN TAB 325 MG TAB PO PRN (22:15)
[2019-12-02] MEDS: AMPICILLIN 2,000 MG in SODIUM CHLORIDE 0.9% 100 ML IVPB SCH ×6 (02:27→21:04)
[2019-12-02] MEDS: SODIUM CHLORIDE 0.9% IVPB SCH ×2 (03:25→10:39)
[2019-12-02] MEDS: GENTAMICIN IVPB SCH ×2 (03:25→10:39)
[2019-12-02] MEDS: METHOCARBAMOL 500 MG TAB PO SCH ×3 (06:18→20:23)
[2019-12-02] MEDS: IOPAMIDOL CONTRAST (ORAL USE) VIAL PO PRN ×2 (08:01→09:02)
[2019-12-02] MEDS: ASPIRIN 81 MG PO SCH (08:33)
[2019-12-02] MEDS: ATORVASTATIN 80 MG TAB PO SCH (08:33)
[2019-12-02] MEDS: APIXABAN 5 MG TAB PO SCH ×2 (08:33→20:23)
[2019-12-02] MEDS: FUROSEMIDE 20 MG TAB PO SCH (08:34)
[2019-12-02] MEDS: POTASSIUM CHLORIDE ER 20 MEQ TAB.ER PO SCH (08:34)
[2019-12-02] MEDS: METOPROLOL TARTRATE 12.5 MG TAB PO SCH ×2 (08:34→20:23)
[2019-12-02] MEDS: PANTOPRAZOLE 40 MG TABLET PO SCH (08:34)
[2019-12-02] MEDS: FOLIC ACID 1 MG TAB PO SCH (08:34)
[2019-12-02] MEDS: DOFETILIDE 250 MCG CAP PO SCH ×2 (08:34→20:23)
[2019-12-02] MEDS: SENNOSIDES-DOCUSATE SODIUM 1 EACH TAB PO SCH (08:34)
[2019-12-02] MEDS: MAGNESIUM OXIDE 400 MG TAB PO SCH (08:34)
[2019-12-02] MEDS ORDERED: GENTAMICIN TROUGH DUE 1 EACH MISC MISCELLANE ONE (09:00)
[2019-12-02] MEDS: POLYETHYLENE GLYCOL 3350 17 GM POWD.PACK PO SCH (09:05)
[2019-12-02 09:27] LABS: African American GFR (CKD) >90 (>60 ml/min/1.73 sqM); Anion Gap 7 mmol/L; Blood Urea Nitrogen 2 mg/dL (7-17); C Reactive Protein 56.9 mg/L (<10.0); Calcium 9.1 mg/dL (8.4-10.2); Carbon Dioxide 27 mmol/L (22-30); Chloride 107 mmol/L (98-107); Glucose 98 mg/dL (74-99); Non-African American GFR(CKD) >90 (>60 ml/min/1.73 sqM); Sodium 141 mmol/L (137-145)
[2019-12-02 10:17] LABS: Basophils # (A) 0.1 k/uL (0-0.2); Basophils % (A) 1 %; Eosinophils # (A) 0.4 k/uL (0-0.7); Eosinophils % (A) 5 %; HCT 30.3 % (34.0-46.0); HGB 9.4 gm/dL (11.4-16.0); Hypochromasia Moderate; Lymphocytes # (A) 1.6 k/uL (1.0-4.8); Lymphocytes % (A) 21 %; MCHC 30.9 g/dL (31.0-37.0); MCV 97.2 fL (80.0-100.0); Mean Platelet Volume 7.9; Monocytes # (A) 0.5 k/uL (0-1.0); Monocytes % (A) 6 %; Neutrophils # (A) 5.1 k/uL (1.3-7.7); Neutrophils % (A) 65 %; Platelet Count 304 k/uL (150-450); RBC 3.12 m/uL (3.80-5.40); RDW 14.6 % (11.5-15.5); WBC 7.9 k/uL (3.8-10.6)
--- NOTE | 2019-12-02 10:29 | CT ---
EXAMINATION TYPE: CT abdomen pelvis w con DATE OF EXAM: 12/02/2019 COMPARISON: 01/19/2016 INDICATION: Enterococus bacteremia DLP: 901.3 mGycm, Automated exposure control for dose reduction was used. CONTRAST: 100 mL of Isovue 300. Study performed with Oral Contrast TECHNIQUE: Axial images were obtained from above the diaphragm to the pubic rami in the axial plane a t 5 mm thick sections. Reconstructed images are reviewed on the computer in the coronal plane. FINDINGS: Limited CT sections are obtained the lung bases. Small bilateral pleural effusions are present. No significant pericardial effusion is evident. CT ABDOMEN: Liver: Slightly heterogenous. This appears more homogenous on delayed contrast imaging. No discrete m asses or cysts are evident. Spleen: Normal Pancreas: Normal Adrenal glands: The adrenal glands are normal. Gallbladder: Normal Kidneys: No masses are evident. No hydronephrosis is present. Delayed images were obtained through the kidneys, tiny cortical renal cyst is identified on the delayed images through the kidneys and th e left kidney. Aorta: Vascular calcification is within the aorta. Inferior vena cava: Normal. CT PELVIS: Loops of bowel within the abdomen and pelvis are normal. There are loops of bowel which are incom pletely distended or lack oral contrast limiting their evaluation. Oral contrast extends to the trans verse colon. Some fecal debris is within the colon. Fecal bolus at the level the rectum. Appendix: Not identified. No suspicious dilated tubular structures or inflammatory changes are eviden t. Urinary bladder: Normal. Genitourinary structures: Uterus appears normal. There is some fullness within the left adnexal regio n. Some increased density is present could be enhancement or calcification. Osseous structures: No suspicious lytic or sclerotic lesions. Vertebral plasty is present L4 and L5 3 . Degenerative disc changes are present within the lumbar spine. Some compression deformities of T11- L4 is evident. IMPRESSIONS: 1. Small bilateral pleural effusions. 2. No suspicious abscess formation identified. 3. Mild fecal retention with a fecal bolus at the level the rectum
--- NOTE | 2019-12-02 11:08 | P.PN ---
Subjective Progress Note Date: 12/02/19 This is a 69-year-old female admitted with diagnosis of possible endocarditis/sepsis, she had a recent mitral valve replacement at [facility], was discharged home and readmitted with fever. Patient had a transthoracic echocardiogram which did not show any valvular vegetations and yesterday underwent a transesophageal echocardiographic study which did not reveal any evidence of vegetations, which showed a normally functioning bioprosthetic mitral valve with mild central mitral regurgitation. Patient was seen and examined this morning, she feels weak, but otherwise no complaints. Hemodynamically she is stable, white blood cell count is normal, she's afebrile. Objective - Vital Signs Vital signs: Vital Signs Temp 97.8 F 12/02/19 04:00 Pulse 96 12/02/19 08:00 Resp 18 12/02/19 08:00 BP 146/84 12/02/19 08:00 Pulse Ox 100 12/02/19 08:00 Intake & Output 12/01/19 12/02/19 12/02/19 18:59 06:59 18:59 Intake Total 1210 300 Output Total 1407 Balance -197 300 Weight 62.8 kg Intake: IV 160 Sodium Chloride 0.9% 1, 160 000 ml @ 100 mls/hr IV . Q10H [facility] Rx#:[id number] Intake, IV Titration 200 300 Amount Ampicillin 2,000 mg In 200 Sodium Chloride 0.9% 100 ml @ 200 mls/hr IVPB Q4H [facility] Rx#:[id number] Gentamicin 50 mg In 100 100 Sodium Chloride 0.9% 100 ml @ 101.25 mls/hr IVPB Q8H [facility] Rx#:[id number] Gentamicin in NaCl Iso- 100 Osm Pmx 80 mg In Saline 1 100ml.bag @ 100 mls/hr IVPB ONCE ONE Rx#: [id number] Oral 850 Output: Urine 1400 Stool 7 Other: Voiding Method Toilet Toilet # Voids 1 1 - Exam PHYSICAL EXAMINATION: GENERAL: 69-year-old female in no acute distress at the time of my examination HEENT: Head is atraumatic, normocephalic. Pupils equal, round. Sclera anicteric. Conjunctiva are clear. Mucous membranes of the mouth are moist. Neck is supple. There is no elevated jugular venous pressure. No carotid bruit is heard. HEART EXAMINATION: Heart S1, S2 normal. No murmur or gallop heard. CHEST EXAMINATION: Lungs are clear to auscultation and precussion. No chest wall tenderness is noted on palpation or with deep breathing. Previous median sternotomy site is dry and without drainage, no redness. ABDOMEN: Soft, nontender. Bowel sounds are heard. No organomegaly noted. EXTREMITIES: 2+ peripheral pulses with no evidence of peripheral edema and no calf tenderness noted. NEUROLOGIC patient is awake, alert and oriented 3 . . - Labs CBC & Chem 7: 12/02/19 08:53 12/02/19 08:53 Labs: Abnormal Lab Results - Last 24 Hours (Table) 12/02/19 12/02/19 Range/Units 08:53 08:53 RBC 3.12 L (3.80-5.40) m/uL Hgb 9.4 L (11.4-16.0) gm/dL Hct 30.3 L (34.0-46.0) % MCHC 30.9 L (31.0-37.0) g/dL BUN 2 L (7-17) mg/dL Creatinine 0.50 L (0.52-1.04) mg/dL C-Reactive Protein 56.9 H (<10.0) mg/L Microbiology - Last 24 Hours (Table) 11/29/19 05:07 Blood Culture Gram Stain - Final Blood Blood Culture - Final Enterococcus faecalis 11/28/19 20:20 Blood Culture - Preliminary Blood No Growth after 72 hours Assessment and Plan Plan: Assessment and plan #1 group D enterococcus bacteremia/sepsis. JOSE L performed yesterday did not reveal any evidence of vegetation. #2 recent mitral valve replacement at [facility] #3 paroxysmal atrial fibrillation, currently in a normal sinus rhythm #4 hyperlipidemia 5 history of rheumatoid arthritis #6 hypertension #7 history of TIA Plan Patient is scheduled today to undergo a CT of the abdomen to rule out any abscess. From cardiology's perspective, we would recommend to continue this pa tient on her current medications. DNP note has been reviewed, I agree with a documented findings and plan of care. Patient was seen and examined.
[2019-12-02] MEDS ORDERED: GENTAMICIN PEAK DUE 1 EACH MISC MISCELLANE ONE (11:30)
[2019-12-02 11:31] LABS: Erythrocyte Sedimentation Rate 78 mm/hr (0-20)
[2019-12-02] MEDS: ACETAMINOPHEN TAB 325 MG TAB PO PRN (11:37)
[2019-12-02] MEDS: MULTIVITAMINS, THERA 1 EACH TAB PO SCH (11:38)
[2019-12-02] MEDS: CALCIUM CARBONATE 500 MG CHEWABLE PO SCH (11:38)
[2019-12-02] MEDS: FERROUS SULFATE 325 MG TAB PO SCH (11:38)
[2019-12-02] MEDS: CHOLECALCIFEROL 1,000 UNIT TAB PO SCH (11:38)
--- NOTE | 2019-12-02 13:22 | P.PN ---
Subjective Progress Note Date: 12/02/19 69-year-old female one of my office patient of known very well with multiple medical problem known to have history of A. fib, hypertension, rheumatoid arthritis, hyperlipidemia, anemia was hospitalized in October for TIA patient was diagnosed with severe mitral regurgitation and up having bias to take valve at [facility] on November 14 and was released home 2 days ago while she was still having low-grade temperature and not feeling well. Patient continued to have fever and chills at home she woke up this morning having significant back pain with vomiting and low blood pressure with fever and chills ended up coming to the emergency department her temperature was reported at 102 patient had white blood cells 22,000 apparently was told before that before she left the hospital that the area where her narrative valve was removed showed some bacterial infection but no further culture was positive at the time patient was sent home without antibiotics. Patient was evaluated in the emergency department and felt her symptom can be related to sepsis from endocarditis [facility] was contacted and they're and her lack down for the COVID-19, they're not accepting any transfer or any patient from THE [facility]. Patient will be seen infectious disease and cardiology will be started on IV antibiotic for endocarditis will be admitted to the ICU will see paint booth operator as well. 11/28: Patient remains in intensive care unit. She is currently on cefepime and vancomycin followed by Dr. Snow and treated for suspected endocarditis. Blood cultures positive for group D enterococcus. Repeat blood cultures have been ordered. Patient remains in droplet isolation and COVID-19 testing remains pending. Repeat lab work today reveals white count of 12, hemoglobin 8.3, platelet count 266, INR 1.2. Sodium 136, potassium 3.9, chloride 111, CO2 18, BUN 12 and creatinine 0.54. Echocardiogram reveals EF of 60-65% with mild concentric left ventricular hypertrophy, mild tricuspid regurgitation. There is no evidence of vegetation. Patient has been afebrile since admission, heart rate 97, blood pressure 106/54, pulse ox 97% on room air. 11/29: Patient remains in intensive care unit. Patient has been afebrile since admission, heart rate 95, blood pressure 119/75, pulse ox 98% on room air. Repeat lab work reveals study BC 7.5, hemoglobin 8.2, platelet count 255. Sodium 137, potassium 3.8, chloride 111, CO2 18, BUN 7 creatinine 0.53. Patient is followed by cardiology. Dr. Snow has ordered CAT scan of the abdomen and pelvis to further identify source of bacteremia. Antibiotics changed to Unasyn 3 g every 6 hours. Repeat blood cultures from November 28 are also positive. Patient has had no signs of bleeding. Patient does have history of chronic anemia and on ferrous sulfate and folic acid. Eliquis will be continued, stool for occult blood will be checked. COVID-19 remains pending. 11/30: CAT scan of abdomen and pelvis was unable to be done as patient has pending results of COVID-19 testing and is now on hold. COVID-19 testing is negative. Cardiology has been requested to perform JOSE L which will hopefully be completed today. Patient remains afebrile, heart rate 96, blood pressure 110/73, pulse ox 96% on room air. Repeat blood work reveals WBC 6.3, hemoglobin 8, BUN 4 creatinine 0.49. Chloride 111 CO2 20. Patient is currently on Unasyn and gentamicin. Repeat blood cultures have been ordered for tomorrow. 12/01: Patient remains afebrile, heart rate 99, blood pressure 150/78, pulse ox 88% on room air followed by 100% on room air documented. WBC 7.9, hemoglobin 9.4. BUN 2 and creatinine 0.5. Blood cultures thus far have been positive for Enterococcus faecalis. Repeat blood culture was obtained this morning. JOSE L showed no evidence of vegetation and normally functioning bioprosthetic mitral valve with mild central mitral regurgitation. CAT scan of the abdomen and pelvis revealed small bilateral pleural effusions.His abscess formation identified. Mild fecal retention with a fecal bolus at the level of the rectum. Patient is currently on Unasyn and gentamicin managed by Dr. Snow. Patient feels well and would like to be discharged as soon as possible. We are currently attempting to find source of bacteremia and patient will not be able to obtain PICC line in until blood cultures are negative. Anticipate the patient will be here until next week. Cardiology is following and made no changes to medications. We will transfer the patient to [facility] floor with telemetry. Objective - Vital Signs Vital signs: Vital Signs Temp 98.3 F 12/02/19 11:32 Pulse 71 12/02/19 11:32 Resp 18 12/02/19 11:32 BP 135/58 12/02/19 11:32 Pulse Ox 100 12/02/19 11:32 Intake & Output 12/01/19 12/02/19 12/02/19 18:59 06:59 18:59 Intake Total 1210 300 Output Total 1407 Balance -197 300 Weight 62.8 kg Intake: IV 160 Sodium Chloride 0.9% 1, 160 000 ml @ 100 mls/hr IV . Q10H [facility] Rx#:[id number] Intake, IV Titration 200 300 Amount Ampicillin 2,000 mg In 200 Sodium Chloride 0.9% 100 ml @ 200 mls/hr IVPB Q4H [facility] Rx#:[id number] Gentamicin 50 mg In 100 100 Sodium Chloride 0.9% 100 ml @ 101.25 mls/hr IVPB Q8H [facility] Rx#:[id number] Gentamicin in NaCl Iso- 100 Osm Pmx 80 mg In Saline 1 100ml.bag @ 100 mls/hr IVPB ONCE ONE Rx#: [id number] Oral 850 Output: Urine 1400 Stool 7 Other: Voiding Method Toilet Toilet Toilet # Voids 1 1 - Exam Review of Systems CONSTITUTIONAL: denies fatigue, No fever, no chills. EYES: No icterus sclerae, no conjunctivitis. EARS, NOSE, MOUTH, THROAT, and FACE: No sore throat, lymphadenopathy, carotid bruits or deformity. RESPIRATORY: Denies shortness of breath, denies cough. Sternotomy CARDIOVASCULAR: Positive chest pain positive shortness of breath no anginal symptoms no palpitation lately. GASTROINTESTINAL: no abdominal pain with nausea no vomiting no diarrhea this point no active GI bleed. GENITOURINARY: Negative for Hematuria or UTI, no kidney stones. INTEGUMENT/BREAST: Negative for any muscular injury with mild osteoarthritis.. HEMATOLOGIC/LYMPHATIC: Negative for bleed or purpura. MUSCULOSKELTAL: Multiple arthralgia and myalgia from RA. NEURLOGICAL: No LOC, Sz or syncope, blurred vision dizziness or abnormality.. BEHAVIORAL/PSYCH: Negative. ENDOCRINE: Negative. Physical examination General Appearance: Alert, cooperative, no distress, appears stated age. Patient resting comfortably in the chair. Neck HEENT: Supple, no lymphadenopathy, no thyroid enlargement, no carotid bruits. Lungs: Decreased breath sound bilaterally with fine rhonchi no crackles or wheezes. Chest Wall: Decrease expansion with deep inspiration positive tenderness over the incision site from her sternotomy no other deformity was found just mild bru ises around the incision site. Heart: Irregular rhythm and rate S1-S2 positive history positive mitral valve click. Abdomen: Soft, non-tender, bowel sounds active all four quadrants, no masses, no organomegaly. Extremities: Extremities normal, atraumatic, no cyanosis or edema. Pulses: 2+ and symmetric. Skin: Skin color, texture, tugor normal, no rashes or lesions. Neurologic: Alert oriented x3 cranial nerves II through XII intact, no motor deficit, no abnormal balance or gait. - Labs CBC & Chem 7: 12/02/19 08:53 12/02/19 08:53 Labs: Abnormal Lab Results - Last 24 Hours (Table) 12/02/19 12/02/19 Range/Units 08:53 08:53 RBC 3.12 L (3.80-5.40) m/uL Hgb 9.4 L (11.4-16.0) gm/dL Hct 30.3 L (34.0-46.0) % MCHC 30.9 L (31.0-37.0) g/dL ESR 78 H (0-20) mm/hr BUN 2 L (7-17) mg/dL Creatinine 0.50 L (0.52-1.04) mg/dL C-Reactive Protein 56.9 H (<10.0) mg/L Microbiology - Last 24 Hours (Table) 11/29/19 05:07 Blood Culture Gram Stain - Final Blood Blood Culture - Final Enterococcus faecalis 11/28/19 20:20 Blood Culture - Preliminary Blood No Growth after 72 hours Assessment and Plan Plan: 1. Sepsis and group D enterococcus bacteremia with recent valve replacement, un clear etiology, rule out endocarditis. Antibiotics have been changed to Unasyn, repeat blood cultures in progress, consults with cardiology, ID and paint booth operator appreciated. JOSE L revealed no vegetation. CAT scan of the abdomen and pelvis showed no acute findings. COVID-19 negative. [facility]red to [facility] floor. 2. Sepsis with recent mitral valve replacement. 3. Chronic atrial fibrillation. Continue Eliquis, Tikosyn and metoprolol. Cardiology consult appreciated. 4. Recent TIA, no symptoms present. 5. Hypertension. Continue Tikosyn and metoprolol. 6. Hyperlipidemia: Patient is on Crestor 40 mg a day. 7. RA: Has been on methotrexate and small dose of prednisone both have been held for now. 8. Recurrent depression. Continue Lexapro 10 mg a day. 9. Elevated troponin: Not a clear whether this is hypoperfusion shortly after surgery or related to non-ST ID Will repeat troponin tomorrow morning and consult cardiology. 10. Elevated lipase: With possible mild pancreatitis ultrasound of the liver and gallbladder normal. 11. Hyperglycemia: Continue patient on diet control. 12. GI prophylaxis: Patient will be on pantoprazole. 13. DVT prophylaxis: Patient is on anticoagulation currently. CODE STATUS: Full code. Discharge plan: Home with VNA Impression and plan of care have been directed as dictated by the signing physician. Juliette Terrazas nurse practitioner acting as scribe for signing physician.
[2019-12-02] MEDS: GENTAMICIN 60 MG in SODIUM CHLORIDE 0.9% 100 ML IVPB SCH (18:37)
[2019-12-02] MEDS: HYDROcodone/APAP 5-325MG 1 EACH TAB PO PRN (21:08)
--- NOTE | 2019-12-02 22:11 | PN ---
PROGRESS NOTE DATE OF SERVICE: 12/02/2019 REASON FOR FOLLOWUP: Enterococcus faecalis bacteremia. INTERVAL HISTORY: The patient is currently afebrile. The patient has been breathing comfortably. The patient denies having any chest pain or shortness of breath or cough. No nausea or vomiting. No abdominal pain or diarrhea. PHYSICAL EXAMINATION: Blood pressure is 132/85 with a pulse of 109, temperature 98.3. She is 99% on room air. General description is an elderly female lying in bed in no distress. RESPIRATORY SYSTEM: Unlabored breathing. Clear to auscultation anteriorly. HEART: S1, S2. Regular rate and rhythm. ABDOMEN: Soft. No tenderness. LABS: Hemoglobin 9.4, white count 7.9, BUN of 2, creatinine 0.50. Blood cultures from 11/30 so far negative. DIAGNOSTIC IMPRESSION AND PLAN: Patient with Enterococcus faecalis bacteremia in this patient who did have recent mitral valve replacement, currently with no other obvious focus of infection. She is currently covered with ampicillin and gentamicin. We are planning on at least 2 weeks of gentamycin and ampicillin 4 to 6 weeks, depending upon the clinical response. Once her blood culture is negative, she will get a PICC line for outpatient IV antibiotic therapy. Continue with supportive care. MMODL / IJN: [id number] /
[2019-12-03] MEDS: AMPICILLIN 2,000 MG in SODIUM CHLORIDE 0.9% 100 ML IVPB SCH ×6 (01:05→22:26)
[2019-12-03] MEDS: GENTAMICIN 60 MG in SODIUM CHLORIDE 0.9% 100 ML IVPB SCH ×3 (01:49→18:26)
[2019-12-03] MEDS: METHOCARBAMOL 500 MG TAB PO SCH ×3 (05:17→22:26)
[2019-12-03] MEDS: POTASSIUM CHLORIDE ER 20 MEQ TAB.ER PO SCH (07:16)
[2019-12-03] MEDS: ASPIRIN 81 MG PO SCH (07:16)
[2019-12-03] MEDS: FOLIC ACID 1 MG TAB PO SCH (07:16)
[2019-12-03] MEDS: ATORVASTATIN 80 MG TAB PO SCH (07:16)
[2019-12-03] MEDS: SENNOSIDES-DOCUSATE SODIUM 1 EACH TAB PO SCH (07:16)
[2019-12-03] MEDS: ACETAMINOPHEN TAB 325 MG TAB PO PRN (07:17)
[2019-12-03] MEDS: PANTOPRAZOLE 40 MG TABLET PO SCH (07:17)
[2019-12-03] MEDS: POLYETHYLENE GLYCOL 3350 17 GM POWD.PACK PO SCH (07:17)
[2019-12-03] MEDS: FUROSEMIDE 20 MG TAB PO SCH (07:17)
[2019-12-03] MEDS: METOPROLOL TARTRATE 12.5 MG TAB PO SCH ×2 (07:19→20:13)
[2019-12-03] MEDS: APIXABAN 5 MG TAB PO SCH (07:19)
[2019-12-03] MEDS: DOFETILIDE 250 MCG CAP PO SCH ×2 (07:19→20:13)
[2019-12-03] MEDS: MAGNESIUM OXIDE 400 MG TAB PO SCH (07:19)
[2019-12-03] MEDS: CHOLECALCIFEROL 1,000 UNIT TAB PO SCH (12:19)
[2019-12-03] MEDS: FERROUS SULFATE 325 MG TAB PO SCH (12:19)
[2019-12-03] MEDS: CALCIUM CARBONATE 500 MG CHEWABLE PO SCH (12:19)
[2019-12-03] MEDS: MULTIVITAMINS, THERA 1 EACH TAB PO SCH (12:19)
--- NOTE | 2019-12-03 12:35 | P.PN ---
Subjective Progress Note Date: 12/03/19 69-year-old female one of my office patient of known very well with multiple medical problem known to have history of A. fib, hypertension, rheumatoid arthritis, hyperlipidemia, anemia was hospitalized in October for TIA patient was diagnosed with severe mitral regurgitation and up having bias to take valve at [facility] on November 14 and was released home 2 days ago while she was still having low-grade temperature and not feeling well. Patient continued to have fever and chills at home she woke up this morning having significant back pain with vomiting and low blood pressure with fever and chills ended up coming to the emergency department her temperature was reported at 102 patient had white blood cells 22,000 apparently was told before that before she left the hospital that the area where her narrative valve was removed showed some bacterial infection but no further culture was positive at the time patient was sent home without antibiotics. Patient was evaluated in the emergency department and felt her symptom can be related to sepsis from endocarditis [facility] was contacted and they're and her lack down for the COVID-19, they're not accepting any transfer or any patient from THE [facility]. Patient will be seen infectious disease and cardiology will be started on IV antibiotic for endocarditis will be admitted to the ICU will see animal herder as well. 11/28: Patient remains in intensive care unit. She is currently on cefepime and vancomycin followed by Dr. Snow and treated for suspected endocarditis. Blood cultures positive for group D enterococcus. Repeat blood cultures have been ordered. Patient remains in droplet isolation and COVID-19 testing remains pending. Repeat lab work today reveals white count of 12, hemoglobin 8.3, platelet count 266, INR 1.2. Sodium 136, potassium 3.9, chloride 111, CO2 18, BUN 12 and creatinine 0.54. Echocardiogram reveals EF of 60-65% with mild concentric left ventricular hypertrophy, mild tricuspid regurgitation. There is no evidence of vegetation. Patient has been afebrile since admission, heart rate 97, blood pressure 106/54, pulse ox 97% on room air. 11/29: Patient remains in intensive care unit. Patient has been afebrile since admission, heart rate 95, blood pressure 119/75, pulse ox 98% on room air. Repeat lab work reveals study BC 7.5, hemoglobin 8.2, platelet count 255. Sodium 137, potassium 3.8, chloride 111, CO2 18, BUN 7 creatinine 0.53. Patient is followed by cardiology. Dr. Snow has ordered CAT scan of the abdomen and pelvis to further identify source of bacteremia. Antibiotics changed to Unasyn 3 g every 6 hours. Repeat blood cultures from November 28 are also positive. Patient has had no signs of bleeding. Patient does have history of chronic anemia and on ferrous sulfate and folic acid. Eliquis will be continued, stool for occult blood will be checked. COVID-19 remains pending. 11/30: CAT scan of abdomen and pelvis was unable to be done as patient has pending results of COVID-19 testing and is now on hold. COVID-19 testing is negative. Cardiology has been requested to perform JOSE L which will hopefully be completed today. Patient remains afebrile, heart rate 96, blood pressure 110/73, pulse ox 96% on room air. Repeat blood work reveals WBC 6.3, hemoglobin 8, BUN 4 creatinine 0.49. Chloride 111 CO2 20. Patient is currently on Unasyn and gentamicin. Repeat blood cultures have been ordered for tomorrow. 12/01: Patient remains afebrile, heart rate 99, blood pressure 150/78, pulse ox 88% on room air followed by 100% on room air documented. WBC 7.9, hemoglobin 9.4. BUN 2 and creatinine 0.5. Blood cultures thus far have been positive for Enterococcus faecalis. Repeat blood culture was obtained this morning. JOSE L showed no evidence of vegetation and normally functioning bioprosthetic mitral valve with mild central mitral regurgitation. CAT scan of the abdomen and pelvis revealed small bilateral pleural effusions.His abscess formation identified. Mild fecal retention with a fecal bolus at the level of the rectum. Patient is currently on Unasyn and gentamicin managed by Dr. Snow. Patient feels well and would like to be discharged as soon as possible. We are currently attempting to find source of bacteremia and patient will not be able to obtain PICC line in until blood cultures are negative. Anticipate the patient will be here until next week. Cardiology is following and made no changes to medications. We will transfer the patient to [facility] with telemetry. 12/02: Dr. Snow has recommended 2 weeks of gentamicin and ampicillin for 4-6 weeks. When she has a negative blood culture for 72 hours, PICC line will be ordered. Patient has one blood culture from March 25 showing no growth at 24 hours. Eliquis will be placed on hold with anticipation of PICC line placement on Friday. Patient has been afebrile, heart rate 99, blood pressure 124/71, pulse ox 97% on room air. The patient is requesting chest however which will be obtained for her. Objective - Vital Signs Vital signs: Vital Signs Temp 98.8 F 12/03/19 05:29 Pulse 99 12/03/19 05:29 Resp 16 12/03/19 05:29 BP 124/71 12/03/19 05:29 Pulse Ox 97 12/03/19 05:29 Intake & Output 12/02/19 12/03/19 12/03/19 18:59 06:59 18:59 Intake Total 1520 Output Total 950 Balance 570 Intake: Intake, IV Titration 200 Amount Ampicillin 2,000 mg In 100 Sodium Chloride 0.9% 100 ml @ 200 mls/hr IVPB Q4H [facility] Rx#:[id number] Gentamicin 50 mg In 100 Sodium Chloride 0.9% 100 ml @ 101.25 mls/hr IVPB Q8H [facility] Rx#:[id number] Oral 1320 Output: Urine 950 Other: Voiding Method Toilet Toilet # Voids 3 2 # Bowel Movements 2 - Exam Review of Systems CONSTITUTIONAL: denies fatigue, No fever, no chills. EYES: No icterus sclerae, no conjunctivitis. EARS, NOSE, MOUTH, THROAT, and FACE: No sore throat, lymphadenopathy, carotid bruits or deformity. RESPIRATORY: Denies shortness of breath, denies cough. Sternotomy CARDIOVASCULAR: Positive chest pain denies shortness of breath no anginal symptoms no palpitation lately. GASTROINTESTINAL: no abdominal pain with nausea no vomiting no diarrhea this point no active GI bleed. GENITOURINARY: Negative for Hematuria or UTI, no kidney stones. INTEGUMENT/BREAST: Negative for any muscular injury with mild osteoarthritis.. HEMATOLOGIC/LYMPHATIC: Negative for bleed or purpura. MUSCULOSKELTAL: Multiple arthralgia and myalgia from RA. NEURLOGICAL: No LOC, Sz or syncope, blurred vision dizziness or abnormality.. BEHAVIORAL/PSYCH: Negative. ENDOCRINE: Negative. Physical examination General Appearance: Alert, cooperative, no distress, appears stated age. Patient resting comfortably in the chair. Neck HEENT: Supple, no lymphadenopathy, no thyroid enlargement, no carotid bruits. Lungs: Decreased breath sound bilaterally with fine rhonchi no crackles or wheezes. Chest Wall: Decrease expansion with deep inspiration positive tenderness over the incision site from her sternotomy no other deformity was found just mild br uises around the incision site. Heart: Irregular rhythm and rate S1-S2 positive history positive mitral valve click. Abdomen: Soft, non-tender, bowel sounds active all four quadrants, no masses, no organomegaly. Extremities: Extremities normal, atraumatic, no cyanosis or edema. Pulses: 2+ and symmetric. Skin: Skin color, texture, tugor normal, no rashes or lesions. Neurologic: Alert oriented x3 cranial nerves II through XII intact, no motor deficit, no abnormal balance or gait. - Labs CBC & Chem 7: 12/02/19 08:53 12/02/19 08:53 Labs: Abnormal Lab Results - Last 24 Hours (Table) 12/02/19 12/02/19 Range/Units 08:53 08:53 RBC 3.12 L (3.80-5.40) m/uL Hgb 9.4 L (11.4-16.0) gm/dL Hct 30.3 L (34.0-46.0) % MCHC 30.9 L (31.0-37.0) g/dL ESR 78 H (0-20) mm/hr BUN 2 L (7-17) mg/dL Creatinine 0.50 L (0.52-1.04) mg/dL C-Reactive Protein 56.9 H (<10.0) mg/L Microbiology - Last 24 Hours (Table) 11/29/19 05:07 Blood Culture Gram Stain - Final Blood Blood Culture - Final Enterococcus faecalis 11/28/19 20:20 Blood Culture - Preliminary Blood No Growth after 96 hours 12/01/19 16:14 Blood Culture - Preliminary Blood No Growth after 24 hours Assessment and Plan Plan: 1. Sepsis and group D enterococcus bacteremia with recent valve replacement, unclear etiology, rule out endocarditis. Antibiotics have been changed to Unasyn, repeat blood cultures in progress, consults with cardiology, ID and animal herder appreciated. JOSE L revealed no vegetation. CAT scan of the abdomen and pelvis showed no acute findings. COVID-19 negative. Transferred to [facility] floor.Dr. Snow has recommended 2 weeks of gentamicin and ampicillin for 4-6 weeks. Anticipate PICC line on Friday. Eliquis placed on hold 2. Sepsis with recent mitral valve replacement. 3. Chronic atrial fibrillation. Continue Tikosyn and metoprolol. Eliquis on hold for PICC line. Cardiology consult appreciated. 4. Recent TIA, no symptoms present. 5. Hypertension. Continue Tikosyn and metoprolol. 6. Hyperlipidemia: Patient is on Crestor 40 mg a day. 7. RA: Has been on methotrexate and small dose of prednisone both have been held for now. 8. Recurrent depression. Continue Lexapro 10 mg a day. 9. Elevated troponin: Not a clear whether this is hypoperfusion shortly after surgery or related to non-ST MT Will repeat troponin tomorrow morning and consult cardiology. 10. Elevated lipase: With possible mild pancreatitis ultrasound of the liver and gallbladder normal. 11. Hyperglycemia: Continue patient on diet control. 12. GI prophylaxis: Patient will be on pantoprazole. 13. DVT prophylaxis: Patient is on anticoagulation currently. CODE STATUS: Full code. Discharge plan: Home with VNA Impression and plan of care have been directed as dictated by the signing phys kirk. Juliette Terrazas nurse practitioner acting as scribe for signing physician.
[2019-12-03 13:45] VITALS: BMI 25.3
--- NOTE | 2019-12-03 17:36 | PN ---
PROGRESS NOTE DATE OF SERVICE: 12/03/2019. REASON FOR FOLLOWUP: Enterococcus faecalis bacteremia. INTERVAL HISTORY: The patient is currently afebrile. The patient is breathing comfortably. The patient denies having any chest pain or shortness of breath or cough. No nausea or vomiting. No abdominal pain or diarrhea. PHYSICAL EXAMINATION: Blood pressure 105/65 with a pulse of 93, temperature 97.8. She is 99% on room air. General description is an elderly female up in the chair in no distress. RESPIRATORY SYSTEM: Unlabored breathing. Clear to auscultation anteriorly. HEART: S1, S2. Regular rate and rhythm. ABDOMEN: Soft. No tenderness. LABS: No new labs have been obtained today. Blood cultures 11/30 so far negative. DIAGNOSTIC IMPRESSION AND PLAN: Patient with Enterococcus faecalis bacteremia with concern for possible endovascular source in this patient who did have recent mitral valve replacement, though transesophageal echocardiogram did not show any vegetation. CT of abdomen and pelvis was negative. Urine negative. Will wait for the blood culture to be negative at least 48 hours before placing a PICC line for outpatient IV antibiotic therapy, at least 4 weeks. Continue with ampicillin and gentamycin at this point. Continue with supportive care. MMODL / IJN: [id number] /
[2019-12-03] MEDS: HYDROcodone/APAP 5-325MG 1 EACH TAB PO PRN (20:16)
[2019-12-03] MEDS: LACTOBACILLUS ACIDOPH & BULGAR 1 EACH PACKET PO SCH (22:26)
[2019-12-04] MEDS: AMPICILLIN 2,000 MG in SODIUM CHLORIDE 0.9% 100 ML IVPB SCH ×6 (02:54→22:20)
[2019-12-04] MEDS: GENTAMICIN 60 MG in SODIUM CHLORIDE 0.9% 100 ML IVPB SCH ×2 (03:41→12:13)
[2019-12-04] MEDS: METHOCARBAMOL 500 MG TAB PO SCH ×3 (05:43→22:15)
[2019-12-04] MEDS: POTASSIUM CHLORIDE ER 20 MEQ TAB.ER PO SCH (08:33)
[2019-12-04] MEDS: SENNOSIDES-DOCUSATE SODIUM 1 EACH TAB PO SCH (08:33)
[2019-12-04] MEDS: ASPIRIN 81 MG PO SCH (08:33)
[2019-12-04] MEDS: MAGNESIUM OXIDE 400 MG TAB PO SCH (08:33)
[2019-12-04] MEDS: PANTOPRAZOLE 40 MG TABLET PO SCH (08:33)
[2019-12-04] MEDS: ACETAMINOPHEN TAB 325 MG TAB PO PRN ×2 (08:33→16:33)
[2019-12-04] MEDS: FOLIC ACID 1 MG TAB PO SCH (08:33)
[2019-12-04] MEDS: FUROSEMIDE 20 MG TAB PO SCH (08:33)
[2019-12-04] MEDS: LACTOBACILLUS ACIDOPH & BULGAR 1 EACH PACKET PO SCH ×2 (08:34→22:07)
[2019-12-04] MEDS: ATORVASTATIN 80 MG TAB PO SCH (08:34)
[2019-12-04] MEDS: DOFETILIDE 250 MCG CAP PO SCH ×2 (08:34→22:14)
[2019-12-04] MEDS: METOPROLOL TARTRATE 12.5 MG TAB PO SCH ×2 (08:34→22:07)
[2019-12-04] MEDS: POLYETHYLENE GLYCOL 3350 17 GM POWD.PACK PO SCH ×2 (08:35→08:36)
[2019-12-04] MEDS ORDERED: GENTAMICIN TROUGH DUE 1 EACH MISC MISCELLANE ONE (09:00)
[2019-12-04 09:21] LABS: African American GFR (CKD) >90 (>60 ml/min/1.73 sqM); Non-African American GFR(CKD) >90 (>60 ml/min/1.73 sqM)
[2019-12-04] MEDS ORDERED: GENTAMICIN PEAK DUE 1 EACH MISC MISCELLANE ONE (11:30)
--- NOTE | 2019-12-04 12:04 | P.PN ---
Subjective Progress Note Date: 12/04/19 69-year-old female one of my office patient of known very well with multiple medical problem known to have history of A. fib, hypertension, rheumatoid arthritis, hyperlipidemia, anemia was hospitalized in October for TIA patient was diagnosed with severe mitral regurgitation and up having bias to take valve at [facility] on November 14 and was released home 2 days ago while she was still having low-grade temperature and not feeling well. Patient continued to have fever and chills at home she woke up this morning having significant back pain with vomiting and low blood pressure with fever and chills ended up coming to the emergency department her temperature was reported at 102 patient had white blood cells 22,000 apparently was told before that before she left the hospital that the area where her narrative valve was removed showed some bacterial infection but no further culture was positive at the time patient was sent home without antibiotics. Patient was evaluated in the emergency department and felt her symptom can be related to sepsis from endocarditis [facility] was contacted and they're and her lack down for the COVID-19, they're not accepting any transfer or any patient from THE [facility]. Patient will be seen infectious disease and cardiology will be started on IV antibiotic for endocarditis will be admitted to the ICU will see bee keeper as well. 11/28: Patient remains in intensive care unit. She is currently on cefepime and vancomycin followed by Dr. Snow and treated for suspected endocarditis. Blood cultures positive for group D enterococcus. Repeat blood cultures have been ordered. Patient remains in droplet isolation and COVID-19 testing remains pending. Repeat lab work today reveals white count of 12, hemoglobin 8.3, platelet count 266, INR 1.2. Sodium 136, potassium 3.9, chloride 111, CO2 18, BUN 12 and creatinine 0.54. Echocardiogram reveals EF of 60-65% with mild concentric left ventricular hypertrophy, mild tricuspid regurgitation. There is no evidence of vegetation. Patient has been afebrile since admission, heart rate 97, blood pressure 106/54, pulse ox 97% on room air. 11/29: Patient remains in intensive care unit. Patient has been afebrile since admission, heart rate 95, blood pressure 119/75, pulse ox 98% on room air. Repeat lab work reveals study BC 7.5, hemoglobin 8.2, platelet count 255. Sodium 137, potassium 3.8, chloride 111, CO2 18, BUN 7 creatinine 0.53. Patient is followed by cardiology. Dr. Snow has ordered CAT scan of the abdomen and pelvis to further identify source of bacteremia. Antibiotics changed to Unasyn 3 g every 6 hours. Repeat blood cultures from November 28 are also positive. Patient has had no signs of bleeding. Patient does have history of chronic anemia and on ferrous sulfate and folic acid. Eliquis will be continued, stool for occult blood will be checked. COVID-19 remains pending. 11/30: CAT scan of abdomen and pelvis was unable to be done as patient has pending results of COVID-19 testing and is now on hold. COVID-19 testing is negative. Cardiology has been requested to perform JOSE L which will hopefully be completed today. Patient remains afebrile, heart rate 96, blood pressure 110/73, pulse ox 96% on room air. Repeat blood work reveals WBC 6.3, hemoglobin 8, BUN 4 creatinine 0.49. Chloride 111 CO2 20. Patient is currently on Unasyn and gentamicin. Repeat blood cultures have been ordered for tomorrow. 12/01: Patient remains afebrile, heart rate 99, blood pressure 150/78, pulse ox 88% on room air followed by 100% on room air documented. WBC 7.9, hemoglobin 9.4. BUN 2 and creatinine 0.5. Blood cultures thus far have been positive for Enterococcus faecalis. Repeat blood culture was obtained this morning. JOSE L showed no evidence of vegetation and normally functioning bioprosthetic mitral valve with mild central mitral regurgitation. CAT scan of the abdomen and pelvis revealed small bilateral pleural effusions.His abscess formation identified. Mild fecal retention with a fecal bolus at the level of the rectum. Patient is currently on Unasyn and gentamicin managed by Dr. Snow. Patient feels well and would like to be discharged as soon as possible. We are currently attempting to find source of bacteremia and patient will not be able to obtain PICC line in until blood cultures are negative. Anticipate the patient will be here until next week. Cardiology is following and made no changes to medications. We will transfer the patient to [facility] with telemetry. 12/02: Dr. Snow has recommended 2 weeks of gentamicin and ampicillin for 4-6 weeks. When she has a negative blood culture for 72 hours, PICC line will be ordered. Patient has one blood culture from March 25 showing no growth at 24 hours. Eliquis will be placed on hold with anticipation of PICC line placement on Friday. Patient has been afebrile, heart rate 99, blood pressure 124/71, pulse ox 97% on room air. The patient is requesting chest however which will be obtained for her. 12/03: Patient is sitting up in a chair in no apparent distress she denies any c hest pain, shortness breath, she has no fever or chills, she has no abdominal pain, nausea or vomiting she did have quite a bit of a bowel movement twice so far today and she did have multiple time yesterday, no blood or mucus in the stool at this point. Seems to be doing fine. Await repeated blood culture and hopefully a PICC line placement on Friday so she can continue her IV antibiotic for the next 6 weeks . Objective - Vital Signs Vital signs: Vital Signs Temp 98.3 F 12/04/19 05:20 Pulse 99 12/04/19 05:20 Resp 18 12/04/19 05:20 BP 132/73 12/04/19 05:20 Pulse Ox 98 12/04/19 05:20 Intake & Output 12/03/19 12/04/19 12/04/19 18:59 06:59 18:59 Intake Total 200 Balance 200 Weight 62.8 kg Intake: Oral 200 Other: Voiding Method Toilet Toilet # Voids 1 1 - Exam - Exam Review of Systems CONSTITUTIONAL: denies fatigue, No fever, no chills. EYES: No icterus sclerae, no conjunctivitis. EARS, NOSE, MOUTH, THROAT, and FACE: No sore throat, lymphadenopathy, carotid bruits or deformity. RESPIRATORY: Denies shortness of breath, denies cough. Sternotomy CARDIOVASCULAR: Positive chest pain denies shortness of breath no anginal symptoms no palpitation lately. GASTROINTESTINAL: no abdominal pain with nausea no vomiting no diarrhea this point no active GI bleed. GENITOURINARY: Negative for Hematuria or UTI, no kidney stones. INTEGUMENT/BREAST: Negative for any muscular injury with mild osteoarthritis.. HEMATOLOGIC/LYMPHATIC: Negative for bleed or purpura. MUSCULOSKELTAL: Multiple arthralgia and myalgia from RA. NEURLOGICAL: No LOC, Sz or syncope, blurred vision dizziness or abnormality.. BEHAVIORAL/PSYCH: Negative. ENDOCRINE: Negative. Physical examination General Appearance: Alert, cooperative, no distress, appears stated age. Patient resting comfortably in the chair. Neck HEENT: Supple, no lymphadenopathy, no thyroid enlargement, no carotid bruits. Lungs: Decreased breath sound bilaterally with fine rhonchi no crackles or wheezes. Chest Wall: Decrease expansion with deep inspiration positive tenderness over the incision site from her sternotomy no other deformity was found just mild bruises around the incision site. Heart: Irregular rhythm and rate S1-S2 positive history positive mitral valve click. Abdomen: Soft, non-tender, bowel sounds active all four quadrants, no masses, no organomegaly. Extremities: Extremities normal, atraumatic, no cyanosis or edema. Pulses: 2+ and symmetric. Skin: Skin color, texture, tugor normal, no rashes or lesions. Neurologic: Alert oriented x3 cranial nerves II through XII intact, no motor deficit, no abnormal balance or gait. - Labs CBC & Chem 7: 12/02/19 08:53 12/04/19 09:01 Labs: Microbiology - Last 24 Hours (Table) 11/28/19 20:20 Blood Culture - Preliminary Blood No Growth after 120 hours 12/01/19 16:14 Blood Culture - Preliminary Blood No Growth after 48 hours 12/02/19 08:53 Blood Culture - Preliminary Blood No Growth after 24 hours 11/29/19 05:07 Blood Culture Gram Stain - Final Blood Blood Culture - Final Enterococcus faecalis Assessment and Plan Assessment: Assessment and Plan Plan: 1. Sepsis and group D enterococcus bacteremia with recent valve replacement, unclear etiology, rule out endocarditis. Antibiotics have been changed to Unasyn, repeat blood cultures in progress, consults with cardiology, ID and bee keeper appreciated. JOSE L revealed no vegetation. CAT scan of the abdomen and pelvis showed no acute findings. COVID-19 negative. Transferred to [facility] floor.Dr. Snow has recommended 2 weeks of gentamicin and ampicillin for 4-6 wee ks. Anticipate PICC line on Friday. Eliquis placed on hold 2. Sepsis with recent mitral valve replacement. 3. Chronic atrial fibrillation. Continue Tikosyn and metoprolol. Eliquis on hold for PICC line. Cardiology consult appreciated. 4. Recent TIA, no symptoms present. 5. Hypertension. Continue Tikosyn and metoprolol. 6. Hyperlipidemia: Patient is on Crestor 40 mg a day. 7. RA: Has been on methotrexate and small dose of prednisone both have been held for now. 8. Recurrent depression. Continue Lexapro 10 mg a day. 9. Elevated troponin: Not a clear whether this is hypoperfusion shortly after surgery or related to non-ST SD Will repeat troponin tomorrow morning and consu lt cardiology. 10. Elevated lipase: With possible mild pancreatitis ultrasound of the liver and gallbladder normal. 11. Hyperglycemia: Continue patient on diet control. 12. GI prophylaxis: Patient will be on pantoprazole. 13. DVT prophylaxis: Patient is on anticoagulation currently. CODE STATUS: Full code. Discharge plan: Home with [facility]NA
[2019-12-04] MEDS: CALCIUM CARBONATE 500 MG CHEWABLE PO SCH (12:13)
[2019-12-04] MEDS: FERROUS SULFATE 325 MG TAB PO SCH (12:13)
[2019-12-04] MEDS: CHOLECALCIFEROL 1,000 UNIT TAB PO SCH (12:13)
[2019-12-04] MEDS: MULTIVITAMINS, THERA 1 EACH TAB PO SCH (12:13)
[2019-12-04] MEDS: HYDROcodone/APAP 5-325MG 1 EACH TAB PO PRN (22:15)
[2019-12-05] MEDS: GENTAMICIN 60 MG in SODIUM CHLORIDE 0.9% 100 ML IVPB SCH ×3 (00:57→23:56)
[2019-12-05] MEDS: AMPICILLIN 2,000 MG in SODIUM CHLORIDE 0.9% 100 ML IVPB SCH ×6 (03:25→21:28)
[2019-12-05] MEDS: METHOCARBAMOL 500 MG TAB PO SCH ×3 (06:09→21:29)
[2019-12-05] MEDS: ACETAMINOPHEN TAB 325 MG TAB PO PRN (06:18)
[2019-12-05 06:48] LABS: Basophils % (A) 0 %; Eosinophils # (A) 0.5 k/uL (0-0.7); Eosinophils % (A) 5 %; HCT 27.6 % (34.0-46.0); HGB 8.7 gm/dL (11.4-16.0); Hypochromasia Moderate; Lymphocytes # (A) 1.9 k/uL (1.0-4.8); Lymphocytes % (A) 22 %; MCH 30.4 pg (25.0-35.0); MCHC 31.5 g/dL (31.0-37.0); MCV 96.4 fL (80.0-100.0); Mean Platelet Volume 8.1; Monocytes # (A) 0.6 k/uL (0-1.0); Monocytes % (A) 7 %; Neutrophils # (A) 5.6 k/uL (1.3-7.7); Neutrophils % (A) 63 %; Platelet Count 303 k/uL (150-450); RBC 2.86 m/uL (3.80-5.40); RDW 14.7 % (11.5-15.5); WBC 8.9 k/uL (3.8-10.6)
[2019-12-05 06:54] LABS: ALT 25 U/L (4-34); AST 38 U/L (14-36); African American GFR (CKD) >90 (>60 ml/min/1.73 sqM); Albumin 3.1 g/dL (3.5-5.0); Alkaline Phosphatase 130 U/L (38-126); Anion Gap 6 mmol/L; Blood Urea Nitrogen 2 mg/dL (7-17); Calcium 8.8 mg/dL (8.4-10.2); Carbon Dioxide 26 mmol/L (22-30); Chloride 108 mmol/L (98-107); Glucose 82 mg/dL (74-99); Non-African American GFR(CKD) 90 (>60 ml/min/1.73 sqM); Potassium 3.9 mmol/L (3.5-5.1); Sodium 140 mmol/L (137-145); Total Bilirubin 0.3 mg/dL (0.2-1.3); Total Protein 6.2 g/dL (6.3-8.2)
--- NOTE | 2019-12-05 07:16 | PN ---
PROGRESS NOTE DATE OF SERVICE: 12/04/2019. REASON FOR FOLLOWUP: Enterococcus faecalis bacteremia and a question of endocarditis. INTERVAL HISTORY: The patient is currently afebrile. The patient is breathing comfortably. Patient denies having any chest pain or shortness of breath or cough. No nausea, no vomiting. No abdominal pain. No diarrhea. PHYSICAL EXAMINATION: Blood pressure 118/78 with a pulse of 97, temperature 97.9. She is 99% on room air. General description: The patient is an elderly female, lying in bed in no distress. Respiratory system: Unlabored breathing. Clear to auscultation anteriorly. Heart S1, S2. Regular rate and rhythm. Abdomen soft, no tenderness. LABS: Creatinine 0.63, gentamicin being slightly elevated. DIAGNOSTIC IMPRESSION AND PLAN: Patient with Enterococcus faecalis bacteremia and a question of possible endocarditis in this patient with recent mitral valve replacement. JOSE L was negative. CT abdominal and pelvis negative as well. Placing a PICC line on Friday to continue with IV antibiotic for at least 4 weeks. We will discontinue the gentamicin on discharge as high risk for nephrotoxicity in the outpatient setting with it. Continue supportive care. MMODL / IJN: [id number] /
[2019-12-05] MEDS: POTASSIUM CHLORIDE ER 20 MEQ TAB.ER PO SCH (09:33)
[2019-12-05] MEDS: DOFETILIDE 250 MCG CAP PO SCH ×2 (09:33→21:06)
[2019-12-05] MEDS: MAGNESIUM OXIDE 400 MG TAB PO SCH (09:33)
[2019-12-05] MEDS: LACTOBACILLUS ACIDOPH & BULGAR 1 EACH PACKET PO SCH ×2 (09:33→20:41)
[2019-12-05] MEDS: MULTIVITAMINS, THERA 1 EACH TAB PO SCH (09:33)
[2019-12-05] MEDS: METOPROLOL TARTRATE 12.5 MG TAB PO SCH ×2 (09:33→20:41)
[2019-12-05] MEDS: FOLIC ACID 1 MG TAB PO SCH (09:34)
[2019-12-05] MEDS: ATORVASTATIN 80 MG TAB PO SCH (09:34)
[2019-12-05] MEDS: ASPIRIN 81 MG PO SCH (09:34)
[2019-12-05] MEDS: PANTOPRAZOLE 40 MG TABLET PO SCH (09:34)
[2019-12-05] MEDS: FUROSEMIDE 20 MG TAB PO SCH (09:34)
[2019-12-05] MEDS: SENNOSIDES-DOCUSATE SODIUM 1 EACH TAB PO SCH (09:35)
[2019-12-05] MEDS: POLYETHYLENE GLYCOL 3350 17 GM POWD.PACK PO SCH (09:35)
[2019-12-05] MEDS: CALCIUM CARBONATE 500 MG CHEWABLE PO SCH (11:20)
[2019-12-05] MEDS: FERROUS SULFATE 325 MG TAB PO SCH (11:20)
[2019-12-05] MEDS: CHOLECALCIFEROL 1,000 UNIT TAB PO SCH (11:20)
--- NOTE | 2019-12-05 12:48 | P.PN ---
Subjective Progress Note Date: 12/05/19 69-year-old female one of my office patient of known very well with multiple medical problem known to have history of A. fib, hypertension, rheumatoid arthritis, hyperlipidemia, anemia was hospitalized in October for TIA patient was diagnosed with severe mitral regurgitation and up having bias to take valve at [facility] on November 14 and was released home 2 days ago while she was still having low-grade temperature and not feeling well. Patient continued to have fever and chills at home she woke up this morning having significant back pain with vomiting and low blood pressure with fever and chills ended up coming to the emergency department her temperature was reported at 102 patient had white blood cells 22,000 apparently was told before that before she left the hospital that the area where her narrative valve was removed showed some bacterial infection but no further culture was positive at the time patient was sent home without antibiotics. Patient was evaluated in the emergency department and felt her symptom can be related to sepsis from endocarditis [facility] was contacted and they're and her lack down for the COVID-19, they're not accepting any transfer or any patient from THE [facility]. Patient will be seen infectious disease and cardiology will be started on IV antibiotic for endocarditis will be admitted to the ICU will see contact person as well. 11/28: Patient remains in intensive care unit. She is currently on cefepime and vancomycin followed by Dr. Snow and treated for suspected endocarditis. Blood cultures positive for group D enterococcus. Repeat blood cultures have been ordered. Patient remains in droplet isolation and COVID-19 testing remains pending. Repeat lab work today reveals white count of 12, hemoglobin 8.3, platelet count 266, INR 1.2. Sodium 136, potassium 3.9, chloride 111, CO2 18, BUN 12 and creatinine 0.54. Echocardiogram reveals EF of 60-65% with mild concentric left ventricular hypertrophy, mild tricuspid regurgitation. There is no evidence of vegetation. Patient has been afebrile since admission, heart rate 97, blood pressure 106/54, pulse ox 97% on room air. 11/29: Patient remains in intensive care unit. Patient has been afebrile since admission, heart rate 95, blood pressure 119/75, pulse ox 98% on room air. Repeat lab work reveals study BC 7.5, hemoglobin 8.2, platelet count 255. Sodium 137, potassium 3.8, chloride 111, CO2 18, BUN 7 creatinine 0.53. Patient is followed by cardiology. Dr. Snow has ordered CAT scan of the abdomen and pelvis to further identify source of bacteremia. Antibiotics changed to Unasyn 3 g every 6 hours. Repeat blood cultures from November 28 are also positive. Patient has had no signs of bleeding. Patient does have history of chronic anemia and on ferrous sulfate and folic acid. Eliquis will be continued, stool for occult blood will be checked. COVID-19 remains pending. 11/30: CAT scan of abdomen and pelvis was unable to be done as patient has pending results of COVID-19 testing and is now on hold. COVID-19 testing is negative. Cardiology has been requested to perform JOSE L which will hopefully be completed today. Patient remains afebrile, heart rate 96, blood pressure 110/73, pulse ox 96% on room air. Repeat blood work reveals WBC 6.3, hemoglobin 8, BUN 4 creatinine 0.49. Chloride 111 CO2 20. Patient is currently on Unasyn and gentamicin. Repeat blood cultures have been ordered for tomorrow. 12/01: Patient remains afebrile, heart rate 99, blood pressure 150/78, pulse ox 88% on room air followed by 100% on room air documented. WBC 7.9, hemoglobin 9.4. BUN 2 and creatinine 0.5. Blood cultures thus far have been positive for Enterococcus faecalis. Repeat blood culture was obtained this morning. JOSE L showed no evidence of vegetation and normally functioning bioprosthetic mitral valve with mild central mitral regurgitation. CAT scan of the abdomen and pelvis revealed small bilateral pleural effusions.His abscess formation identified. Mild fecal retention with a fecal bolus at the level of the rectum. Patient is currently on Unasyn and gentamicin managed by Dr. Snow. Patient feels well and would like to be discharged as soon as possible. We are currently attempting to find source of bacteremia and patient will not be able to obtain PICC line in until blood cultures are negative. Anticipate the patient will be here until next week. Cardiology is following and made no changes to medications. We will transfer the patient to [facility] with telemetry. 12/02: Dr. Snow has recommended 2 weeks of gentamicin and ampicillin for 4-6 weeks. When she has a negative blood culture for 72 hours, PICC line will be ordered. Patient has one blood culture from March 25 showing no growth at 24 hours. Eliquis will be placed on hold with anticipation of PICC line placement on Friday. Patient has been afebrile, heart rate 99, blood pressure 124/71, pulse ox 97% on room air. The patient is requesting chest however which will be obtained for her. 12/03: Patient is sitting up in a chair in no apparent distress she denies any c hest pain, shortness breath, she has no fever or chills, she has no abdominal pain, nausea or vomiting she did have quite a bit of a bowel movement twice so far today and she did have multiple time yesterday, no blood or mucus in the stool at this point. Seems to be doing fine. Await repeated blood culture and hopefully a PICC line placement on Friday so she can continue her IV antibiotic for the next 6 weeks . 12/04: Patient is sitting up in a recliner she did sleep well last night she has no sore throat. She has no chest pain or shortness breath she has no coughing abdominal pain, nausea or vomiting she has no diarrhea this is removed patient, she is ready to be discharged home within the next 24 hours after arranging for visiting nurse for IV antibiotic for the next 6 weeks. Objective - Vital Signs Vital signs: Vital Signs Temp 98.5 F 12/05/19 05:46 Pulse 100 12/05/19 05:46 Resp 16 12/05/19 05:46 BP 130/84 12/05/19 05:46 Pulse Ox 95 12/05/19 05:46 Intake & Output 12/04/19 12/05/19 12/05/19 18:59 06:59 18:59 Intake Total 540 Balance 540 Intake: Oral 540 Other: Voiding Method Toilet # Voids 2 2 - Exam - Exam Review of Systems CONSTITUTIONAL: denies fatigue, No fever, no chills. EYES: No icterus sclerae, no conjunctivitis. EARS, NOSE, MOUTH, THROAT, and FACE: No sore throat, lymphadenopathy, carotid bruits or deformity. RESPIRATORY: Denies shortness of breath, denies cough. Sternotomy CARDIOVASCULAR: Positive chest pain denies shortness of breath no anginal symptoms no palpitation lately. GASTROINTESTINAL: no abdominal pain with nausea no vomiting no diarrhea this point no active GI bleed. GENITOURINARY: Negative for Hematuria or UTI, no kidney stones. INTEGUMENT/BREAST: Negative for any muscular injury with mild osteoarthritis.. HEMATOLOGIC/LYMPHATIC: Negative for bleed or purpura. MUSCULOSKELTAL: Multiple arthralgia and myalgia from RA. NEURLOGICAL: No LOC, Sz or syncope, blurred vision dizziness or abnormality.. BEHAVIORAL/PSYCH: Negative. ENDOCRINE: Negative. Physical examination General Appearance: Alert, cooperative, no distress, appears stated age. Patient resting comfortably in the chair. Neck HEENT: Supple, no lymphadenopathy, no thyroid enlargement, no carotid bruits. Lungs: Decreased breath sound bilaterally with fine rhonchi no crackles or wheezes. Chest Wall: Decrease expansion with deep inspiration positive tenderness over the incision site from her sternotomy no other deformity was found just mild bruises around the incision site. Heart: Irregular rhythm and rate S1-S2 positive history positive mitral valve click. Abdomen: Soft, non-tender, bowel sounds active all four quadrants, no masses, no organomegaly. Extremities: Extremities normal, atraumatic, no cyanosis or edema. Pulses: 2+ and symmetric. Skin: Skin color, texture, tugor normal, no rashes or lesions. Neurologic: Alert oriented x3 cranial nerves II through XII intact, no motor deficit, no abnormal balance or gait. - Labs CBC & Chem 7: 12/05/19 06:11 12/05/19 06:11 Labs: Abnormal Lab Results - Last 24 Hours (Table) 12/05/19 12/05/19 Range/Units 06:11 06:11 RBC 2.86 L (3.80-5.40) m/uL Hgb 8.7 L (11.4-16.0) gm/dL Hct 27.6 L (34.0-46.0) % Chloride 108 H (98-107) mmol/L BUN 2 L (7-17) mg/dL AST 38 H (14-36) U/L Alkaline Phosphatase 130 H (38-126) U/L Total Protein 6.2 L (6.3-8.2) g/dL Albumin 3.1 L (3.5-5.0) g/dL Microbiology - Last 24 Hours (Table) 11/28/19 20:20 Blood Culture - Final Blood No Growth after 144 hours 12/01/19 16:14 Blood Culture - Preliminary Blood No Growth after 72 hours 12/02/19 08:53 Blood Culture - Preliminary Blood No Growth after 48 hours Assessment and Plan Assessment: Assessment and Plan Plan: 1. Sepsis and group D enterococcus bacteremia with recent valve replacement, unclear etiology, rule out endocarditis. Antibiotics have been changed to Unasyn, repeat blood cultures in progress, consults with cardiology, ID and contact person appreciated. JOSE L revealed no vegetation. CAT scan of the abdomen and pelvis showed no acute findings. COVID-19 negative. Transferred to [facility].Dr. Snow has recommended 2 weeks of gentamicin and ampicillin for 4-6 weeks. Anticipate PICC line on Friday. Eliquis placed on hold 2. Sepsis with recent mitral valve replacement. 3. Chronic atrial fibrillation. Continue Tikosyn and metoprolol. Eliquis on hold for PICC line. Cardiology consult appreciated. 4. Recent TIA, no symptoms present. 5. Hypertension. Continue Tikosyn and metoprolol. 6. Hyperlipidemia: Patient is on Crestor 40 mg a day. 7. RA: Has been on methotrexate and small dose of prednisone both have been held for now. 8. Recurrent depression. Continue Lexapro 10 mg a day. 9. Elevated troponin: Not a clear whether this is hypoperfusion shortly after surgery or related to non-ST ND Will repeat troponin tomorrow morning and consult cardiology. 10. Elevated lipase: With possible mild pancreatitis ultrasound of the liver and gallbladder normal. 11. Hyperglycemia: Continue patient on diet control. 12. GI prophylaxis: Patient will be on pantoprazole. 13. DVT prophylaxis: Patient is on anticoagulation currently. 14. Home with [facility]NA after obtaining the line tomorrow morning for IV antibiotic for the next 6 weeks.
[2019-12-05] MEDS: HYDROcodone/APAP 5-325MG 1 EACH TAB PO PRN (20:48)
[2019-12-06] MEDS: AMPICILLIN 2,000 MG in SODIUM CHLORIDE 0.9% 100 ML IVPB SCH ×5 (02:00→16:52)
[2019-12-06 05:31] VITALS: BP 115/69; PULSE 99; RESP 16; TEMP 98.3
[2019-12-06] MEDS: METHOCARBAMOL 500 MG TAB PO SCH ×2 (06:16→13:39)
[2019-12-06 06:32] LABS: INR 1.1 (<1.2); Prothrombin Time 11.4 sec (9.0-12.0)
--- NOTE | 2019-12-06 06:37 | PN ---
PROGRESS NOTE DATE OF SERVICE: 12/05/2019 REASON FOR FOLLOWUP: Enterococcus faecalis bacteremia and a question of endocarditis. INTERVAL HISTORY: The patient is currently afebrile. The patient is breathing comfortably. Denies having any chest pain, shortness of breath or cough. No nausea, no vomiting. No abdominal pain, no diarrhea. PHYSICAL EXAMINATION: Blood pressure 128/72 with a pulse of 97, temperature 98.4. She is 98% on room air. General description is an elderly female up in the chair in no distress. RESPIRATORY SYSTEM: Unlabored breathing, decreased breath sounds in the bases. No wheeze. HEART: S1, S2. Regular rate and rhythm. ABDOMEN: Soft, no tenderness. LABS: Hemoglobin 8.7, white count 8.9, BUN of 2, creatinine 0.66. DIAGNOSTIC IMPRESSION AND PLAN: Patient with Enterococcus faecalis bacteremia in this patient who did have a CT of abdomen and pelvis negative. JOSE L did not show any vegetation. However, the patient did have recent mitral valve replacement. The patient clinically responded to ampicillin and gentamicin to continue to finish a total of 4-week course of therapy negative blood cultures. Patient seemed to have tolerated gentamicin well and monitored closely in the outpatient setting for the next 3+ weeks. PICC line will be placed tomorrow and will monitor. Once antibiotic arranged, she will be able to go home from ID standpoint. MMODL / IJN: [id number] /
[2019-12-06] MEDS: PANTOPRAZOLE 40 MG TABLET PO SCH (07:42)
[2019-12-06] MEDS: MAGNESIUM OXIDE 400 MG TAB PO SCH (07:42)
[2019-12-06] MEDS: METOPROLOL TARTRATE 12.5 MG TAB PO SCH (07:42)
[2019-12-06] MEDS: FOLIC ACID 1 MG TAB PO SCH (07:43)
[2019-12-06] MEDS: POTASSIUM CHLORIDE ER 20 MEQ TAB.ER PO SCH (07:43)
[2019-12-06] MEDS: DOFETILIDE 250 MCG CAP PO SCH (07:43)
[2019-12-06] MEDS: ATORVASTATIN 80 MG TAB PO SCH (07:43)
[2019-12-06] MEDS: FUROSEMIDE 20 MG TAB PO SCH (07:43)
[2019-12-06] MEDS: SENNOSIDES-DOCUSATE SODIUM 1 EACH TAB PO SCH (07:43)
[2019-12-06] MEDS: LACTOBACILLUS ACIDOPH & BULGAR 1 EACH PACKET PO SCH (07:43)
[2019-12-06] MEDS: ASPIRIN 81 MG PO SCH (07:43)
[2019-12-06] MEDS: POLYETHYLENE GLYCOL 3350 17 GM POWD.PACK PO SCH (07:44)
[2019-12-06] MEDS ORDERED: LIDOCAINE 1% INJ 10MG/ML (20 ML MDV) SQ ONE (11:02)
[2019-12-06] MEDS: GENTAMICIN 60 MG in SODIUM CHLORIDE 0.9% 100 ML IVPB SCH (11:38)
[2019-12-06] MEDS: CHOLECALCIFEROL 1,000 UNIT TAB PO SCH (11:39)
[2019-12-06] MEDS: MULTIVITAMINS, THERA 1 EACH TAB PO SCH (11:39)
[2019-12-06] MEDS: FERROUS SULFATE 325 MG TAB PO SCH (11:39)
[2019-12-06] MEDS: CALCIUM CARBONATE 500 MG CHEWABLE PO SCH (11:39)
--- NOTE | 2019-12-06 12:45 | P.DS ---
Providers Date of admission: 11/28/19 10:42 Expected date of discharge: 12/06/19 Attending physician: Les Esteban Consults: 11/28/19 10:43 Consult Physician Routine Consulting Provider: Sergey Lincoln Consult Reason/Comments: Recent mitral valve replacement, concern for endocarditis Do you want consulting provider notified?: Yes Consult Physician Routine Consulting Provider: Denise Snow Consult Reason/Comments: sepsis, concern for endocarditis Do you want consulting provider notified?: Already Contacted 11/28/19 11:15 Consult Physician Routine Consulting Provider: Elizabeth Abel Consult Reason/Comments: ICU management Do you want consulting provider notified?: Already Contacted Primary care physician: [facility] Course: 69-year-old female one of my office patient of known very well with multiple medical problem known to have history of A. fib, hypertension, rheumatoid arthritis, hyperlipidemia, anemia was hospitalized in October for TIA patient was diagnosed with severe mitral regurgitation and up having bias to take valve at [facility] on November 14 and was released home 2 days ago while she was still having low-grade temperature and not feeling well. Patient continued to have fever and chills at home she woke up this morning having significant back pain with vomiting and low blood pressure with fever and chills ended up coming to the emergency department her temperature was reported at 102 patient had white blood cells 22,000 apparently was told before that before she left the hospital that the area where her narrative valve was removed showed some bacterial infection but no further culture was positive at the time patient was sent home without antibiotics. Patient was evaluated in the emergency department and felt her symptom can be related to sepsis from endocarditis [facility] was contacted and they're and her lack down for the COVID-19, they're not accepting any transfer or any patient from [facility]. Patient will be seen infectious disease and cardiology will be started on IV antibiotic for endocarditis will be admitted to the ICU will see line rider as well. 11/28: Patient remains in intensive care unit. She is currently on cefepime and vancomycin followed by Dr. Snow and treated for suspected endocarditis. Blood cultures positive for group D enterococcus. Repeat blood cultures have been ordered. Patient remains in droplet isolation and COVID-19 testing remains pending. Repeat lab work today reveals white count of 12, hemoglobin 8.3, platelet count 266, INR 1.2. Sodium 136, potassium 3.9, chloride 111, CO2 18, BUN 12 and creatinine 0.54. Echocardiogram reveals EF of 60-65% with mild concentric left ventricular hypertrophy, mild tricuspid regurgitation. There is no evidence of vegetation. Patient has been afebrile since admission, heart rate 97, blood pressure 106/54, pulse ox 97% on room air. 11/29: Patient remains in intensive care unit. Patient has been afebrile since admission, heart rate 95, blood pressure 119/75, pulse ox 98% on room air. Repeat lab work reveals study BC 7.5, hemoglobin 8.2, platelet count 255. Sodium 137, potassium 3.8, chloride 111, CO2 18, BUN 7 creatinine 0.53. Patient is followed by cardiology. Dr. Snow has ordered CAT scan of the abdomen and pelvis to further identify source of bacteremia. Antibiotics changed to Unasyn 3 g every 6 hours. Repeat blood cultures from November 28 are also positive. Patient has had no signs of bleeding. Patient does have history of chronic anemia and on ferrous sulfate and folic acid. Eliquis will be continued, stool for occult blood will be checked. COVID-19 remains pending. 11/30: CAT scan of abdomen and pelvis was unable to be done as patient has pending results of COVID-19 testing and is now on hold. COVID-19 testing is negative. Cardiology has been requested to perform JOSE L which will hopefully be completed today. Patient remains afebrile, heart rate 96, blood pressure 110/73, pulse ox 96% on room air. Repeat blood work reveals WBC 6.3, hemoglobin 8, BUN 4 creatinine 0.49. Chloride 111 CO2 20. Patient is currently on Unasyn and gentamicin. Repeat blood cultures have been ordered for tomorrow. 12/01: Patient remains afebrile, heart rate 99, blood pressure 150/78, pulse ox 88% on room air followed by 100% on room air documented. WBC 7.9, hemoglobin 9.4. BUN 2 and creatinine 0.5. Blood cultures thus far have been positive for Enterococcus faecalis. Repeat blood culture was obtained this morning. JOSE L showed no evidence of vegetation and normally functioning bioprosthetic mitral valve with mild central mitral regurgitation. CAT scan of the abdomen and pelvis revealed small bilateral pleural effusions.His abscess formation identified. Mild fecal retention with a fecal bolus at the level of the rectum. Patient is currently on Unasyn and gentamicin managed by Dr. Snow. Patient feels well and would like to be discharged as soon as possible. We are currently attempting to find source of bacteremia and patient will not be able to obtain PICC line in until blood cultures are negative. Anticipate the patient will be here until next week. Cardiology is following and made no changes to medications. We will transfer the patient to [facility] with telemetry. 12/02: Dr. Snow has recommended 2 weeks of gentamicin and ampicillin for 4-6 weeks. When she has a negative blood culture for 72 hours, PICC line will be ordered. Patient has one blood culture from November 30 showing no growth at 24 hours. Eliquis will be placed on hold with anticipation of PICC line placement on Friday. Patient has been afebrile, heart rate 99, blood pressure 124/71, pulse ox 97% on room air. The patient is requesting chest however which will be obtained for her. 12/03: Patient is sitting up in a chair in no apparent distress she denies any chest pain, shortness breath, she has no fever or chills, she has no abdominal pain, nausea or vomiting she did have quite a bit of a bowel movement twice so far today and she did have multiple time yesterday, no blood or mucus in the stool at this point. Seems to be doing fine. Await repeated blood culture and hopefully a PICC line placement on Friday so she can continue her IV antibiotic for the next 6 weeks . 12/04: Patient is sitting up in a recliner she did sleep well last night she has no sore throat. She has no chest pain or shortness breath she has no coughing abdominal pain, nausea or vomiting she has no diarrhea this is removed patient, she is ready to be discharged home within the next 24 hours after arranging for visiting nurse for IV antibiotic for the next 6 weeks. 12/05: Patient has been afebrile, heart rate 99, blood pressure 115/69, pulse ox 96% on room air. INR 1.1. Patient is scheduled for PICC line insertion today and IV antibiotics to be arranged. Patient denies any new complaints. Patient will be discharged home today once all arrangements are completed. Discharge diagnoses: 1. Sepsis and Enterococcus faecalis bacteremia with recent valve replacement, unclear etiology, JOSE L was negative for endocarditis. 2. Sepsis with recent mitral valve replacement. 3. Chronic atrial fibrillation. 4. Recent TIA, no symptoms present. 5. Hypertension. 6. Hyperlipidemia 7. RA 8. Recurrent depression. 9. Elevated troponin, acute coronary syndrome ruled out by cardiology. 10. Elevated lipase 11. Hyperglycemia Discharge plan: Home with VNA, IV antibiotics Impression and plan of care have been directed as dictated by the signing physician. Juliette Terrazas nurse practitioner acting as scribe for signing physician. Patient Condition at Discharge: Good Plan - Discharge Summary Discharge Rx Participant: No New Discharge Prescriptions: New Lactobacillus Acidoph & Bulgar [Lactinex] 1 each PO BID packet Continue Pantoprazole Sodium [Protonix] 40 mg PO DAILY@0800 Multivitamins, Thera [Multivitamin (formulary)] 1 tab PO DAILY@1200 Methotrexate Sodium [Methotrexate] 12.5 mg PO LITTLEJOHN Cider Vinegar [Apple Cider Vinegar] 600 mg PO DAILY@1200 Potassium Chloride ER [K-Dur 20] 20 meq PO DAILY@0800 Polyethylene Glycol 3350 [Miralax] 17 gm PO DAILY@0800 Metoprolol Tartrate [Lopressor] 12.5 mg PO BID@0800,1999 Cholecalciferol (Vitamin D3) [Vitamin D3] 5,000 unit PO DAILY@1200 Lidocaine [Lidoderm 5% Patch] 2 patch TRANSDERM DAILY@1000 Calcium Carbonate [Calcium] 600 mg PO DAILY@1200 HYDROcodone/APAP 5-325MG [Barnett 5-325] 1 tab PO Q6H PRN PRN Reason: Pain Acetaminophen Tab [Tylenol] 650 mg PO Q6H PRN PRN Reason: Pain Methocarbamol [Robaxin] 500 mg PO TID@0600,1400,2200 Magnesium Oxide 400 mg PO DAILY@0800 Furosemide [Lasix] 20 mg PO DAILY@0800 Folic Acid 1 mg PO DAILY@0800 Ferrous Sulfate [Feosol] 325 mg PO DAILY@1200 Dofetilide [Tikosyn] 250 mcg PO BID@0800,1999 Aspirin 81 mg PO AC-BRKFST@0800 Apixaban [Eliquis] 5 mg PO BID@0800,1999 Sennosides-Docusate Sodium [Senokot-S] 1 tab PO DAILY@0800 Rosuvastatin Calcium [Crestor] 40 mg PO DAILY@0800 Simponi 100 mg SQ Q56D Discharge Medication List Pantoprazole Sodium [Protonix] 40 mg PO DAILY@0800 06/29/14 [History] Multivitamins, Thera [Multivitamin (formulary)] 1 tab PO DAILY@1200 06/23/19 [History] Cider Vinegar [Apple Cider Vinegar] 600 mg PO DAILY@1200 07/20/19 [History] Methotrexate Sodium [Methotrexate] 12.5 mg PO LITTLEJOHN 07/20/19 [History] Acetaminophen Tab [Tylenol] 650 mg PO Q6H PRN 11/28/19 [History] Apixaban [Eliquis] 5 mg PO BID@0800,199911/28/19 [History] Aspirin 81 mg PO AC-BRKFST@0811/28/19 [History] Calcium Carbonate [Calcium] 600 mg PO DAILY@119911/28/19 [History] Cholecalciferol (Vitamin D3) [Vitamin D3] 5,000 unit PO DAILY@119911/28/19 [History] Dofetilide [Tikosyn] 250 mcg PO BID@0800,199911/28/19 [History] Ferrous Sulfate [Feosol] 325 mg PO DAILY@1200 11/28/19 [History] Folic Acid 1 mg PO DAILY@0811/28/19 [History] Furosemide [Lasix] 20 mg PO DAILY@0811/28/19 [History] HYDROcodone/APAP 5-325MG [Barnett 5-325] 1 tab PO Q6H PRN 11/28/19 [History] Lidocaine [Lidoderm 5% Patch] 2 patch TRANSDERM DAILY@1000 11/28/19 [History] Magnesium Oxide 400 mg PO DAILY@0811/28/19 [History] Methocarbamol [Robaxin] 500 mg PO TID@0600,1400,2200 11/28/19 [History] Metoprolol Tartrate [Lopressor] 12.5 mg PO BID@799,199911/28/19 [History] Polyethylene Glycol 3350 [Miralax] 17 gm PO DAILY@0800 11/28/19 [History] Potassium Chloride ER [K-Dur 20] 20 meq PO DAILY@0800 11/28/19 [History] Rosuvastatin Calcium [Crestor] 40 mg PO DAILY@0811/28/19 [History] Sennosides-Docusate Sodium [Senokot-S] 1 tab PO DAILY@0800 11/28/19 [History] Simponi 100 mg SQ Q56D 11/28/19 [History] Lactobacillus Acidoph & Bulgar [Lactinex] 1 each PO BID packet 12/06/19 [Rx] Follow up Appointment(s)/Referral(s): Yosef Longoria MD [STAFF PHYSICIAN] - 1 Week Les Esteban MD [Primary Care Provider] - 1 Week (office to call you with appt. time and date.) Denise Snow MD [STAFF PHYSICIAN] - 12/20/19 3:15 pm [facility]NA Visiting Nurse, [NON-STAFF] - 1-2 Days Discharge Disposition: HOME WITH HOME HEALTH SERVICES
--- NOTE | 2019-12-06 13:58 | PN ---
PROGRESS NOTE DATE OF SERVICE: 12/06/2019 REASON FOR FOLLOWUP: Enterococcus faecalis bacteremia. INTERVAL HISTORY: The patient is currently afebrile. The patient is breathing comfortably. The patient denies having any chest pain or shortness of breath. No nausea, vomiting, abdominal pain, no diarrhea. PHYSICAL EXAMINATION: Blood pressure 115/59 with a pulse of 99, temperature 98.3, she is 96% on 4 L nasal cannula. General description is an elderly female up in the chair, in no distress. RESPIRATORY SYSTEM: Unlabored breathing, clear to auscultation anteriorly. HEART: S1, S2. Regular rate and rhythm. ABDOMEN: Soft, no tenderness. LABS: Hemoglobin 8.7, white count of 8.9, BUN of 2, creatinine 0.68. DIAGNOSTIC IMPRESSION AND PLAN: Patient with Enterococcus faecalis bacteremia for possible mitral endocarditis. The patient did have recent mitral valve replacement. The patient clinically responding to ampicillin general to continue for a total of 4 weeks. She will need a another 2 weeks of ampicillin and then kidney function monitor closely. So far with weekly monitoring of CBC, BMP and close outpatient followup. Prescription provided to the home health care case manager working on discharge. MMODL / IJN: [id number] /
[2019-12-06] MEDS: ACETAMINOPHEN TAB 325 MG TAB PO PRN (14:05)
--- NOTE | 2019-12-07 11:40 | IR ---
PICC LINE PLACEMENT: HISTORY: Infection requiring long-term antibiotic therapy PROCEDURE: Ultrasound and fluoroscopic guidance of PICC line placement. COMPLICATIONS: None ANESTHESIA: 1. 1% Lidocaine locally. FINDINGS/TECHNIQUE: The procedure was explained to the patient. The risks, complications, benefits and alternatives were discussed and any questions were answered. Informed consent was obtained. The patient was placed supine on the fluoroscopic table and prepped and draped in the usual sterile fash ion. Utilizing a 21 gauge needle and sonographic and fluoroscopic guidance, access in the left basi lic vein was achieved and there is placement of a 0.018 guidewire. The vein is patent. A 4-F sheath was placed over the guidewire. The guidewire and dilator were removed and a 4-F. PICC line was plac ed through the sheath with the tip at the level of the SVC. The sheath was removed, the catheter was flushed and sutured into position. The patient was stable throughout the procedure and remained sta ble upon discharge from the Department of Radiology. The vein puncture was patent under ultrasound. A hendricks scale image was obtained to document patency of the vein punctured. All elements of the maximal barrier technique were utilized. FLUOROSCOPY TIME: 0.1 minute and one image submitted IMPRESSION: Successful PICC line placement under ultrasound and fluoroscopic guidance.
== END 2019-12-06 17:30 | disposition home health service (06) | DRG 872 ==
LOC: EC 07:40 → 2SICU 10:42 → 3SCARD 12-01 21:49 → 5NMEDONC 12-02 16:12 → 6NMEDSUR 12-03 11:44
PROVIDERS: ADMIT Internal Medicine Geriatric Medicine; ATTEND Internal Medicine Geriatric Medicine
PROC: B24BZZ4 Ultrasonography of Heart with Aorta, Transesophageal (ICD-10-PCS; 2019-11-29)
PROC: B24BZZ4 Ultrasonography of Heart with Aorta, Transesophageal (ICD-10-PCS; 2019-12-01)
PROC: 02HV33Z Insertion of Infusion Device into Superior Vena Cava, Percutaneous Approach (ICD-10-PCS; principal; 2019-12-06 09:20)
DX: A41.81 Sepsis due to Enterococcus (principal); F33.9 Major depressive disorder, recurrent, unspecified; I48.20 Chronic atrial fibrillation, unspecified; D62 Acute posthemorrhagic anemia; E78.5 Hyperlipidemia, unspecified; I10 Essential (primary) hypertension; M06.9 Rheumatoid arthritis, unspecified; K21.9 Gastro-esophageal reflux disease without esophagitis; Z20.828 Contact with and (suspected) exposure to other viral communicable diseases; R74.0 Nonspecific elevation of levels of transaminase and lactic acid dehydrogenase [LDH]; R74.8 Abnormal levels of other serum enzymes; R73.9 Hyperglycemia, unspecified; R79.89 Other specified abnormal findings of blood chemistry; I07.1 Rheumatic tricuspid insufficiency; K59.00 Constipation, unspecified; S32.029D Unspecified fracture of second lumbar vertebra, subsequent encounter for fracture with routine healing; Z79.01 Long term (current) use of anticoagulants; Z79.899 Other long term (current) drug therapy; Z95.2 Presence of prosthetic heart valve; Z87.891 Personal history of nicotine dependence; Z86.73 Personal history of transient ischemic attack (TIA), and cerebral infarction without residual deficits; Z98.42 Cataract extraction status, left eye; Z98.41 Cataract extraction status, right eye; Z96.1 Presence of intraocular lens; Z80.49 Family history of malignant neoplasm of other genital organs; Z82.0 Family history of epilepsy and other diseases of the nervous system; Z82.49 Family history of ischemic heart disease and other diseases of the circulatory system; Z83.3 Family history of diabetes mellitus; Z82.3 Family history of stroke; Z80.42 Family history of malignant neoplasm of prostate; Z83.79 Family history of other diseases of the digestive system; Z83.511 Family history of glaucoma
CPT/HCPCS: 36415; 36573; 71045; 71046; 74177; 76705; 80048; 80053; 80170; 80202; 81001; 82150; 82565; 83605; 83690; 83735; 83880; 84484; 85025; 85027; 85610; 85652; 85730; 86140; 87040; 87077; 87086; 87186; 87502; 93005; 93306; 93312; 93320; 93325; 96365; 96366; 96367; 96368; 96375; 99291

== ENCOUNTER → 2020-06-23 | Outpatient (CLI) | payer MEDICARE ==
--- NOTE | 2020-06-23 10:02 | CT ---
EXAMINATION TYPE: CT brain wo con DATE OF EXAM: 06/23/2020 HISTORY: ocular migraines CT DLP: 909.3 mGycm. Automated Exposure Control for Dose Reduction was Utilized. TECHNIQUE: CT scan of the head is performed without contrast. COMPARISON: CT brain 10/10/2019 FINDINGS: There is no acute intracranial hemorrhage, midline shift, or mass effect identified. Redemonstrated v olume loss concordant with age, and patchy white matter hypodensities likely sequela of chronic micro vascular ischemic change. The ventricles, sulci, and cisterns are normal in size and configuration. No extra-axial fluid collection. Bones and extracranial soft tissues are intact. The globes are gross ly symmetric with cataract postsurgical changes. Visualized sinuses and mastoid air cells are clear. IMPRESSION: No acute intracranial hemorrhage, midline shift, or mass effect.
== END | disposition home or self-care (01) ==
LOC: RADCTMAIN 07:10
PROVIDERS: ATTEND Internal Medicine Geriatric Medicine
DX: H53.9 Unspecified visual disturbance (principal)
CPT/HCPCS: 70450

== ENCOUNTER → 2020-10-24 | Outpatient (CLI) | payer MEDICARE ==
[2020-10-24 14:18] VITALS: BP 125/81; PULSE 95; RESP 16; TEMP 97.8
--- NOTE | 2020-10-24 15:24 | P.HPOB ---
History of Present Illness H&P Date: 10/24/20 Chief Complaint: The patient is here for her routine gynecologic exam and ma mmogram. This is a 70-year-old G0 with an LMP of 2005. The patient is without gynecologic complaints and denies any postmenopausal bleeding. The patient used Tymlos injections for osteoporosis as prescribed by her earth boring machine operator for 12 months, but discontinued it prior to her open heart surgery in November 2019. Review of Systems She has lost about 7 pounds over the past year. She denies respiratory, cardiac and G.I. problems. She denies maltreatment or problems with falling. : Occasional small leak which is not a big problem for her. Past Medical History Past Medical History: Atrial Fibrillation, GERD/Reflux, Hyperlipidemia, Rheumatoid Arthritis (RA) Additional Past Medical History / Comment(s): Compression fracture of L4 and L3 recently treated with kyphoplasty. Compression fracture L2 which is being treated conservatively compression fx L3-sx done. 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 PAST ACCOUNTS MANAGER HISTORY: She has no history of STDs. History of Any Multi-Drug Resistant Organisms: None Reported Past Surgical History: Back Surgery, Cardiac Ablation, Orthopedic Surgery, Tonsillectomy Additional Past Surgical History / Comment(s): CATARATS LENS IMPLANTS, RT FOOT REMOVED 3 NODULES, right foot bone removed 05/18/18. Colonoscopy 2015(next after 5 years). Back surgery 07/15/2018 and 07/22/2018. Cardiac ablation surgery, epidural steroid injections for back pain, MITRAL VALVE REPLACEMENT. Story-Maze Afib procedure. Past Anesthesia/Blood Transfusion Reactions: No Reported Reaction Additional Past Anesthesia/Blood Transfusion Reaction / Comment(s): VERTIGO ON A CRUISE Past Psychological History: No Psychological Hx Reported Smoking Status: Former smoker Past Alcohol Use History: Occasional (6 beers per week) Additional Past Alcohol Use History / Comment(s): STARTED SMOKING AT AGE 19 TO AGE 29 SMOKED 1 PACK PER MONTH. Past Drug Use History: None Reported Additional History: The patient is retired and previously worked for [employer]. She is in a homosexual relationship and has been with her partner since 2010 and they live together. - Past Family History Father Family Medical History: Cancer, Neurologic Disorder Additional Family Medical History / Comment(s): Prostate cancer. ARRYTHMIA, CORNEAL IMPLANTS, LT EYE BLIND , PARKINSONS, FATHER HAS Mother Family Medical History: Cancer, Coronary Artery Disease (CAD), Diabetes Mellitus, Myocardial Infarction ([place]) Additional Family Medical History / Comment(s): Uterine cancer. CATARACTS, DETATCHED RETINA, GLAUCOMA, MACULAR DEGENERATION, STENTS, BOWEL RESECTION FOR DIVERTICULITIS, KATINA KNEE REPLACEMENT. recently Brother(s) Family Medical History: CVA/TIA Additional Family Medical History / Comment(s): stroke at 65 Sister(s) Family Medical History: No Reported History Medications and Allergies Home Medications Medication Instructions Recorded Confirmed Type Pantoprazole Sodium [Protonix] 40 mg PO DAILY@0800 06/29/14 10/24/20 History Multivitamins, Thera [Multivitamin 1 tab PO DAILY@1200 06/23/19 10/24/20 History (formulary)] Cider Vinegar [Apple Cider Vinegar] 600 mg PO DAILY@1200 07/20/19 10/24/20 History metHOTREXate sodium [Methotrexate] 12.5 mg PO LITTLEJOHN 07/20/19 10/24/20 History Apixaban [Eliquis] 5 mg PO BID@0800,199911/28/19 10/24/20 History Folic Acid 1 mg PO DAILY@0800 11/28/19 10/24/20 History Rosuvastatin Calcium [Crestor] 20 mg PO QAM 11/28/19 10/24/20 History Simponi 100 mg SQ Q56D 11/28/19 10/24/20 History Ascorbic Acid [Vitamin C] 500 mg PO QAM 10/24/20 10/24/20 History Calcium Carbonate/Vitamin D3 1 each PO QAM 10/24/20 10/24/20 History [Calcium 500Mg-Vit D3 15 mcg (600 unit)] Gabapentin [Neurontin] 100 mg PO BID 10/24/20 10/24/20 History Metoprolol Succinate (ER) [Toprol 25 mg PO DAILY 10/24/20 10/24/20 History Xl] Zinc 50 mg PO QAM 10/24/20 10/24/20 History Allergies Allergy/AdvReac Type Severity Reaction Status Date / Time No Known Allergies Allergy Verified 10/24/20 14:14 Exam Vital Signs Temp Pulse Resp BP Pulse Ox 10/24/20 14:14 97.8 F 95 16 125/81 97 Intake and Output 02/16/21 02/16/21 02/16/21 06:59 14:59 22:59 Other: Weight 63.049 kg Height 5 feet 2 inches, weight 139 pounds, BMI 25.4. This is a well-developed well-nourished white female who is alert and oriented times 3 in no acute distress. HEENT: Within normal limits. NECK: Supple without mass or thyromegaly. CHEST AND LUNGS: Clear to auscultation. HEART: Regular rate and rhythm. BREASTS: Are without mass or discharge. AXILLARY EXAM: Negative for adenopathy. BACK: Negative for CVA tenderness. ABDOMEN: Soft, nontender, without palpable masses. PELVIC EXAM: Normal external genitalia with mild to moderate atrophy. Cervix and vagina appear normal with mild atrophy. There is no unusual discharge. There is no evidence of prolapse. The uterus is midposition, nongravid size and nontend er. There are no palpable adnexal masses or tenderness. RECTAL EXAM: Rectovaginal exam is negative for mass or tenderness and is negative for occult blood. EXTREMITIES: Nontender. IMPRESSION: 1. 70-year-old menopausal female with normal gynecologic exam. 2. History of osteoporosis status post 12 months use of Tymlos injections who is currently no longer using this. PLAN: 1. Pap smear was performed. If this one is negative, we will have 3 consecutive negative Pap smears and we'll consider discontinuing Pap smear screening. 2. Self breast awareness was discussed with the patient. 3. Screening mammogram will be done today. 4. Osteoporosis management was discussed. I have stressed the importance of adequate calcium, vitamin D and regular exercise. Recommended amounts of calcium and vitamin D were also discussed. Bone density testing will be done today. I will send a copy to her earth boring machine operator who can again determine if she should resume treatment for osteoporosis. 5. She did receive her flu shot last fall and has completed her COVID vaccination series. 6. The patient was advised to return in 1-2 years for her well woman examination. She states she will plan on returning in one year.
--- NOTE | 2020-10-25 08:58 | BD ---
EXAMINATION TYPE: Axial Bone Density DATE OF EXAM: 10/24/2020 COMPARISON: 09.30.2018 CLINICAL HISTORY: 70 YR OLD FEMALE ICD-10 CODE: Z78.0 POST MENOPAUSE Height: 59.8 Weight: 144 FRAX RISK QUESTIONS: Family History (Parent hip fracture): YES History of Fracture in Adulthood: YES Rheumatoid Arthritis: RA RISK FACTORS HISTORY OF: HX OF FIBULAR FX AND THORACIC SPINE COMPRESSION FXS AN Surgery to Spine KYPHOPLASTY L2 AND L3 AN ADULT Family History of Osteoporosis: YES Postmenopausal woman: YES AT 56 YRS Lost more than 2 inches in height since high school: YES Hyperparathyroidism: NO Adrenal Insufficiency: NO MEDICATIONS: Osteoporosis Medications: YES, IN PAST FOR NOT A YR NOW Which medication: TIMOLOL Additional Medications: REFLUX MEDS, STATIN FOR CHOLESTEROL, VIT D AND CALCIUM, METHOTREXATE, SIMPONI INFUSION Additional History: REFLUX, CHOLESTEROL, RA EXAM MEASUREMENTS: Bone mineral densitometry was performed using the retsCloud System. LUMBAR N/A FOR SCAN Bone mineral density about the R hip (g/cm2): 0.772 Bone mineral density about the L hip (g/cm2): 0.701 T Score values are as follows: -----R Neck: -0.7 -----L Neck: -1.7 -----R Total: -1.9 -----L Total: -2.4 Bone mineral density has: Decreased -3.3% since study of: 09.30.2018 FRAX%s: THERE IS A 32.6% CHANCE FOR A MAJOR OSTEOPOROTIC FX AND A 10.8% FOR HIP......PROBABILITY FOR FX IN 10 YRS TIME Bone mineral density about the L Wrist (g/cm2): 0.414 T Score values are as follows: -----Dist. R+U: -3.9 -----Prox. R+U: -3.2 -----Radius total: -4.2 Bone mineral density has: Decreased -2.3% since study of: 09.30.2018 IMPRESSION: Osteoporosis NOTE: T-SCORE=SD OF THE YOUNG ADULT MEAN.
--- NOTE | 2020-10-25 13:34 | MM ---
Reason for exam: screening (asymptomatic). Last mammogram was performed 1 year and 3 months ago. History: Patient is postmenopausal and is nulliparous. Benign excisional biopsy of the left breast, 2016. Physical Findings: A clinical breast exam by your physician is recommended on an annual basis and results should be correlated with mammographic findings. MG 3D Screening Mammo W/Cad Bilateral CC and MLO view(s) were taken. Prior study comparison: July 20, 2019, bilateral MG 3d screening mammo w/cad. June 16, 2018, bilateral MG 3d screening mammo w/cad. There are scattered fibroglandular densities. Previous mammotome biopsy in the left breast. No significant changes when compared with prior studies. ASSESSMENT: Benign, BI-RAD 2 RECOMMENDATION: Routine screening mammogram of both breasts in 1 year.
== END | disposition home or self-care (01) ==
LOC: WWCWWP 14:03
PROVIDERS: ATTEND Obstetrics & Gynecology
DX: Z12.31 Encounter for screening mammogram for malignant neoplasm of breast (principal); M81.0 Age-related osteoporosis without current pathological fracture; Z78.0 Asymptomatic menopausal state
CPT/HCPCS: 77063; 77067; 77080

== ENCOUNTER 2021-03-16 01:48 | Emergency (ER) | payer MEDICARE ==
[2021-03-16 02:01] VITALS: PULSE 81; TEMP 97.8
[2021-03-16] MEDS ORDERED: SODIUM CHLORIDE 0.9% 1,000 ML IV STA (02:03)
--- NOTE | 2021-03-16 02:03 | ED ---
Altered Mental Status HPI - General Chief Complaint: Altered Mental Status Stated Complaint: Dizziness, Confusion Time Seen by Provider: 03/16/21 02:02 Source: patient, family, RN notes reviewed, old records reviewed Mode of arrival: ambulatory Limitations: no limitations - History of Present Illness Initial Comments: This is a 71-year-old female to the ER for evaluation patient presents today for evaluation regards to severe confusion difficulty with mental status remember events without for confusion over she was there was going on. Patient speaking to roommate who advised patient to come to the hospital patient resents hospital with her brother who states patient has been acting appropriately throughout his interaction with her patient does admit to a few beers prior to arrival but that was hours ago MD Complaint: altered mental status, confusion -: hour(s) Severity: mild Consistency of Symptoms: waxing and waning, unknown (Near resolved) Associated Symptoms: denies other symptoms - Related Data Home Medications Medication Instructions Recorded Confirmed Pantoprazole Sodium [Protonix] 40 mg PO DAILY@0800 06/29/14 10/24/20 Multivitamins, Thera [Multivitamin 1 tab PO DAILY@1200 06/23/19 10/24/20 (formulary)] Cider Vinegar [Apple Cider Vinegar] 600 mg PO DAILY@1200 07/20/19 10/24/20 metHOTREXate sodium [Methotrexate] 12.5 mg PO LITTLEJOHN 07/20/19 10/24/20 Apixaban [Eliquis] 5 mg PO BID@0800,2000 11/28/19 10/24/20 Folic Acid 1 mg PO DAILY@0800 11/28/19 10/24/20 Rosuvastatin Calcium [Crestor] 20 mg PO QAM 11/28/19 10/24/20 Simponi 100 mg SQ Q56D 11/28/19 10/24/20 Ascorbic Acid [Vitamin C] 500 mg PO QAM 10/24/20 10/24/20 Calcium Carbonate/Vitamin D3 1 each PO QAM 10/24/20 10/24/20 [Calcium 500Mg-Vit D3 15 mcg (600 unit)] Gabapentin [Neurontin] 100 mg PO BID 10/24/20 10/24/20 Metoprolol Succinate (ER) [Toprol 25 mg PO DAILY 10/24/20 10/24/20 Xl] Zinc 50 mg PO QAM 10/24/20 10/24/20 Allergies Allergy/AdvReac Type Severity Reaction Status Date / Time No Known Allergies Allergy Verified 03/16/21 02:01 Review of Systems ROS Statement: Those systems with pertinent positive or pertinent negative responses have been documented in the HPI. ROS Other: All systems not noted in ROS Statement are negative. Past Medical History Past Medical History: Atrial Fibrillation, GERD/Reflux, Hyperlipidemia, Rheumatoid Arthritis (RA) Additional Past Medical History / Comment(s): Compression fracture of L4 and L3 recently treated with kyphoplasty. Compression fracture L2 which is being treated conservatively compression fx L3-sx done. 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 History of Any Multi-Drug Resistant Organisms: None Reported Past Surgical History: Back Surgery, Cardiac Ablation, Orthopedic Surgery, Tonsillectomy Additional Past Surgical History / Comment(s): CATARATS LENS IMPLANTS, RT FOOT REMOVED 3 NODULES, right foot bone removed 05/18/18. Colonoscopy 2015(next after 5 years). Back surgery 07/15/2018 and 07/22/2018. Cardiac ablation surgery, epidural steroid injections for back pain, MITRAL VALVE REPLACEMENT. Story-Maze Afib procedure. Past Anesthesia/Blood Transfusion Reactions: No Reported Reaction Additional Past Anesthesia/Blood Transfusion Reaction / Comment(s): VERTIGO ON A CRUISE Past Psychological History: No Psychological Hx Reported Smoking Status: Former smoker Past Alcohol Use History: Occasional Past Drug Use History: None Reported - Past Family History Father Family Medical History: Cancer, Neurologic Disorder Additional Family Medical History / Comment(s): Prostate cancer. ARRYTHMIA, CORNEAL IMPLANTS, LT EYE BLIND , PARKINSONS, FATHER HAS Mother Family Medical History: Cancer, Coronary Artery Disease (CAD), Diabetes Mellitus, Myocardial Infarction ([place]) Additional Family Medical History / Comment(s): Uterine cancer. CATARACTS, DETATCHED RETINA, GLAUCOMA, MACULAR DEGENERATION, STENTS, BOWEL RESECTION FOR DIVERTICULITIS, KATINA KNEE REPLACEMENT. recently Brother(s) Family Medical History: CVA/TIA Additional Family Medical History / Comment(s): stroke at 65 Sister(s) Family Medical History: No Reported History General Exam General appearance: alert, in no apparent distress Head exam: Present: atraumatic, normocephalic, normal inspection Eye exam: Present: normal appearance, PERRL, EOMI. Absent: scleral icterus, conjunctival injection, periorbital swelling ENT exam: Present: normal exam, mucous membranes moist Neck exam: Present: normal inspection. Absent: tenderness, meningismus, lymphadenopathy Respiratory exam: Present: normal lung sounds bilaterally. Absent: respiratory distress, wheezes, rales, rhonchi, stridor Cardiovascular Exam: Present: regular rate, normal rhythm, normal heart sounds. Absent: systolic murmur, diastolic murmur, rubs, gallop, clicks GI/Abdominal exam: Present: soft, normal bowel sounds. Absent: distended, tenderness, guarding, rebound, rigid Extremities exam: Present: normal inspection, full ROM, normal capillary refill. Absent: tenderness, pedal edema, joint swelling, calf tenderness Back exam: Present: normal inspection Neurological exam: Present: alert, oriented X3, CN II-XII intact Psychiatric exam: Present: normal affect, normal mood Skin exam: Present: warm, dry, intact, normal color. Absent: rash Course Vital Signs 03/16/21 03/16/21 01:52 04:02 Temperature 97.8 F Pulse Rate 81 81 Respiratory 19 20 Rate Blood Pressure 151/92 131/82 O2 Sat by Pulse 98 95 Oximetry - Reevaluation(s) Reevaluation #1: Medical record is reviewed Patient symptoms improved here in the ER Patient is in no acute distress Patient informed results and questions answered Reevaluation #2: Patient has no focal neurological deficit prefers discharge versus observation Medical Decision Making - Medical Decision Making 71 female DF for evaluation regards to not acting appropriate possibly altered mental status. Difficulty and confusion No significant acute findings here in the ER. Patient still for discharge back home - Lab Data Result diagrams: 03/16/21 02:07 03/16/21 02:07 Lab Results 03/16/21 03/16/21 03/16/21 Range/Units 02:07 02:07 02:07 WBC 7.4 (3.8-10.6) k/uL RBC 3.95 (3.80-5.40) m/uL Hgb 12.5 (11.4-16.0) gm/dL Hct 36.2 (34.0-46.0) % MCV 91.7 (80.0-100.0) fL MCH 31.6 (25.0-35.0) pg MCHC 34.4 (31.0-37.0) g/dL RDW 14.3 (11.5-15.5) % Plt Count 148 L (150-450) k/uL MPV 9.1 Neutrophils % 53 % Lymphocytes % 27 % Monocytes % 9 % Eosinophils % 8 % Basophils % 1 % Neutrophils # 3.9 (1.3-7.7) k/uL Lymphocytes # 2.0 (1.0-4.8) k/uL Monocytes # 0.7 (0-1.0) k/uL Eosinophils # 0.6 (0-0.7) k/uL Basophils # 0.1 (0-0.2) k/uL PT 10.6 (9.0-12.0) sec INR 1.0 (<1.2) APTT 22.6 (22.0-30.0) sec Sodium (137-145) mmol/L Potassium (3.5-5.1) mmol/L Chloride (98-107) mmol/L Carbon Dioxide (22-30) mmol/L Anion Gap mmol/L BUN (7-17) mg/dL Creatinine (0.52-1.04) mg/dL Est GFR (CKD-EPI)AfAm (>60 ml/min/1.73 sqM) Est GFR (CKD-EPI)NonAf (>60 ml/min/1.73 sqM) Glucose (74-99) mg/dL Plasma Lactic Acid Philip (0.7-2.0) mmol/L Calcium (8.4-10.2) mg/dL Phosphorus (2.5-4.5) mg/dL Magnesium (1.6-2.3) mg/dL Total Bilirubin (0.2-1.3) mg/dL AST (14-36) U/L ALT (4-34) U/L Alkaline Phosphatase (38-126) U/L Ammonia (<30) umol/L Creatine Kinase (30-135) U/L Troponin I (0.000-0.034) ng/mL NT-Pro-B Natriuret Pep pg/mL Total Protein (6.3-8.2) g/dL Albumin (3.5-5.0) g/dL TSH (0.465-4.680) mIU/L Urine Color Yellow Urine Appearance Clear (Clear) Urine pH 5.5 (5.0-8.0) Ur Specific [place] 1.015 (1.001-1.035) Urine Protein Negative (Negative) Urine Glucose (UA) Negative (Negative) Urine Ketones Negative (Negative) Urine Blood Negative (Negative) Urine Nitrite Negative (Negative) Urine Bilirubin Negative (Negative) Urine Urobilinogen <2.0 (<2.0) mg/dL Ur Leukocyte Esterase Trace H (Negative) Urine RBC 1 (0-5) /hpf Urine WBC 4 (0-5) /hpf Ur Squamous Epith Cells <1 (0-4) /hpf Urine Mucus Rare H (None) /hpf 03/16/21 03/16/21 03/16/21 Range/Units 02:07 02:07 02:07 WBC (3.8-10.6) k/uL RBC (3.80-5.40) m/uL Hgb (11.4-16.0) gm/dL Hct (34.0-46.0) % MCV (80.0-100.0) fL MCH (25.0-35.0) pg MCHC (31.0-37.0) g/dL RDW (11.5-15.5) % Plt Count (150-450) k/uL MPV Neutrophils % % Lymphocytes % % Monocytes % % Eosinophils % % Basophils % % Neutrophils # (1.3-7.7) k/uL Lymphocytes # (1.0-4.8) k/uL Monocytes # (0-1.0) k/uL Eosinophils # (0-0.7) k/uL Basophils # (0-0.2) k/uL PT (9.0-12.0) sec INR (<1.2) APTT (22.0-30.0) sec Sodium 141 (137-145) mmol/L Potassium 4.0 (3.5-5.1) mmol/L Chloride 108 H (98-107) mmol/L Carbon Dioxide 23 (22-30) mmol/L Anion Gap 10 mmol/L BUN 13 (7-17) mg/dL Creatinine 0.75 (0.52-1.04) mg/dL Est GFR (CKD-EPI)AfAm >90 (>60 ml/min/1.73 sqM) Est GFR (CKD-EPI)NonAf 80 (>60 ml/min/1.73 sqM) Glucose 113 H (74-99) mg/dL Plasma Lactic Acid Philip 0.8 (0.7-2.0) mmol/L Calcium 9.8 (8.4-10.2) mg/dL Phosphorus 4.3 (2.5-4.5) mg/dL Magnesium 2.0 (1.6-2.3) mg/dL Total Bilirubin 0.5 (0.2-1.3) mg/dL AST 41 H (14-36) U/L ALT 28 (4-34) U/L Alkaline Phosphatase 112 (38-126) U/L Ammonia <9 (<30) umol/L Creatine Kinase 153 H (30-135) U/L Troponin I <0.012 (0.000-0.034) ng/mL NT-Pro-B Natriuret Pep pg/mL Total Protein 7.8 (6.3-8.2) g/dL Albumin 4.5 (3.5-5.0) g/dL TSH 3.300 (0.465-4.680) mIU/L Urine Color Urine Appearance (Clear) Urine pH (5.0-8.0) Ur Specific [place] (1.001-1.035) Urine Protein (Negative) Urine Glucose (UA) (Negative) Urine Ketones (Negative) Urine Blood (Negative) Urine Nitrite (Negative) Urine Bilirubin (Negative) Urine Urobilinogen (<2.0) mg/dL Ur Leukocyte Esterase (Negative) Urine RBC (0-5) /hpf Urine WBC (0-5) /hpf Ur Squamous Epith Cells (0-4) /hpf Urine Mucus (None) /hpf 03/16/21 Range/Units 02:07 WBC (3.8-10.6) k/uL RBC (3.80-5.40) m/uL Hgb (11.4-16.0) gm/dL Hct (34.0-46.0) % MCV (80.0-100.0) fL MCH (25.0-35.0) pg MCHC (31.0-37.0) g/dL RDW (11.5-15.5) % Plt Count (150-450) k/uL MPV Neutrophils % % Lymphocytes % % Monocytes % % Eosinophils % % Basophils % % Neutrophils # (1.3-7.7) k/uL Lymphocytes # (1.0-4.8) k/uL Monocytes # (0-1.0) k/uL Eosinophils # (0-0.7) k/uL Basophils # (0-0.2) k/uL PT (9.0-12.0) sec INR (<1.2) APTT (22.0-30.0) sec Sodium (137-145) mmol/L Potassium (3.5-5.1) mmol/L Chloride (98-107) mmol/L Carbon Dioxide (22-30) mmol/L Anion Gap mmol/L BUN (7-17) mg/dL Creatinine (0.52-1.04) mg/dL Est GFR (CKD-EPI)AfAm (>60 ml/min/1.73 sqM) Est GFR (CKD-EPI)NonAf (>60 ml/min/1.73 sqM) Glucose (74-99) mg/dL Plasma Lactic Acid Philip (0.7-2.0) mmol/L Calcium (8.4-10.2) mg/dL Phosphorus (2.5-4.5) mg/dL Magnesium (1.6-2.3) mg/dL Total Bilirubin (0.2-1.3) mg/dL AST (14-36) U/L ALT (4-34) U/L Alkaline Phosphatase (38-126) U/L Ammonia (<30) umol/L Creatine Kinase (30-135) U/L Troponin I (0.000-0.034) ng/mL NT-Pro-B Natriuret Pep 336 pg/mL Total Protein (6.3-8.2) g/dL Albumin (3.5-5.0) g/dL TSH (0.465-4.680) mIU/L Urine Color Urine Appearance (Clear) Urine pH (5.0-8.0) Ur Specific [place] (1.001-1.035) Urine Protein (Negative) Urine Glucose (UA) (Negative) Urine Ketones (Negative) Urine Blood (Negative) Urine Nitrite (Negative) Urine Bilirubin (Negative) Urine Urobilinogen (<2.0) mg/dL Ur Leukocyte Esterase (Negative) Urine RBC (0-5) /hpf Urine WBC (0-5) /hpf Ur Squamous Epith Cells (0-4) /hpf Urine Mucus (None) /hpf - EKG Data -: EKG Interpreted by Me (EKG is sinus rhythm 80 DE 174 QRS 124 QTc 470) - Radiology Data Radiology results: report reviewed (CT brain and chest x-rays negative for acute disease), image reviewed Disposition Clinical Impression: Altered mental status Disposition: HOME SELF-CARE Condition: Good Instructions (If sedation given, give patient instructions): Altered Mental Status (ED) Is patient prescribed a controlled substance at d/c from ED?: No Referrals: Les Esteban MD [Primary Care Provider] - 1-2 days
[2021-03-16 02:38] LABS: Appearance,Urine Clear (Clear); Bilirubin,Urine Negative (Negative); Blood,Urine Negative (Negative); Color,Urine Yellow; Glucose,Urine (UA) Negative (Negative); Ketones,Urine Negative (Negative); Leukocyte Esterase,Urine Trace (Negative); Mucus,Urine Rare /hpf; Nitrite,Urine Negative (Negative); PH, Urine 5.5 (5.0-8.0); Protein,Urine Negative (Negative); RBC,Urine 1 /hpf (0-5); Specific Gravity,Urine 1.015 (1.001-1.035); Squamous Epithelial Cell,Urine <1 /hpf (0-4); Urobilinogen,Urine <2.0 mg/dL (<2.0); WBC,Urine 4 /hpf (0-5)
[2021-03-16 02:46] LABS: Lactic Acid, Venous 0.8 mmol/L (0.7-2.0)
[2021-03-16 02:47] LABS: ALT 28 U/L (4-34); AST 41 U/L (14-36); African American GFR (CKD) >90 (>60 ml/min/1.73 sqM); Albumin 4.5 g/dL (3.5-5.0); Alkaline Phosphatase 112 U/L (38-126); Anion Gap 10 mmol/L; Blood Urea Nitrogen 13 mg/dL (7-17); Calcium 9.8 mg/dL (8.4-10.2); Carbon Dioxide 23 mmol/L (22-30); Chloride 108 mmol/L (98-107); Creatine Kinase 153 U/L (30-135); Glucose 113 mg/dL (74-99); Non-African American GFR(CKD) 80 (>60 ml/min/1.73 sqM); Phosphorus 4.3 mg/dL (2.5-4.5); Sodium 141 mmol/L (137-145); Total Bilirubin 0.5 mg/dL (0.2-1.3); Total Protein 7.8 g/dL (6.3-8.2)
[2021-03-16 02:56] LABS: Partial Thromboplastin Time 22.6 sec (22.0-30.0); Prothrombin Time 10.6 sec (9.0-12.0)
[2021-03-16 02:59] LABS: Basophils # (A) 0.1 k/uL (0-0.2); Basophils % (A) 1 %; Eosinophils # (A) 0.6 k/uL (0-0.7); Eosinophils % (A) 8 %; HCT 36.2 % (34.0-46.0); HGB 12.5 gm/dL (11.4-16.0); Lymphocytes % (A) 27 %; MCH 31.6 pg (25.0-35.0); MCHC 34.4 g/dL (31.0-37.0); MCV 91.7 fL (80.0-100.0); Mean Platelet Volume 9.1; Monocytes # (A) 0.7 k/uL (0-1.0); Monocytes % (A) 9 %; Neutrophils # (A) 3.9 k/uL (1.3-7.7); Neutrophils % (A) 53 %; Platelet Count 148 k/uL (150-450); RBC 3.95 m/uL (3.80-5.40); RDW 14.3 % (11.5-15.5); WBC 7.4 k/uL (3.8-10.6)
--- NOTE | 2021-03-16 03:07 | CT ---
EXAMINATION TYPE: CT brain wo con DATE OF EXAM: 03/16/2021 COMPARISON: 06/23/2020 HISTORY: weak CT DLP: 1060.4 mGycm Automated exposure control for dose reduction was used. There is mild cerebral atrophy. There is no mass effect nor midline shift. There is no sign of intrac ranial hemorrhage. There is minimal hypodensity in the periventricular white matter. The calvarium is intact. Skull base is intact. There is normal aeration of the mastoid sinuses. IMPRESSION: Mild atrophy. Mild chronic small vessel ischemia. No acute intracranial abnormality. No adverse payne e.
--- NOTE | 2021-03-16 03:10 | XR ---
EXAMINATION TYPE: XR chest 2V DATE OF EXAM: 03/16/2021 COMPARISON: 11/29/2019 HISTORY: Weakness TECHNIQUE: FINDINGS: There is no heart failure nor confluent pneumonic infiltrate. There is neural stimulator in the thoracic spine. There are sternal wires. There are chest leads. Costophrenic angles are clear. There is slight coarsening of the interstitial markings. There is osteopenia. There is anterior wedgi ng of a mid thoracic vertebra 50%. There is slight loss of height of lower thoracic vertebra. There i s multilevel lumbar vertebroplasty. IMPRESSION: Mild pulmonary fibrosis. No acute lung disease. No adverse change.
[2021-03-16 04:03] VITALS: BP 131/82; RESP 20
== END 2021-03-16 04:05 | disposition home or self-care (01) ==
LOC: EC 01:48
DX: R41.82 Altered mental status, unspecified (principal); E78.5 Hyperlipidemia, unspecified; I48.91 Unspecified atrial fibrillation; K21.9 Gastro-esophageal reflux disease without esophagitis; M06.9 Rheumatoid arthritis, unspecified; M81.0 Age-related osteoporosis without current pathological fracture; Z87.891 Personal history of nicotine dependence; Z95.2 Presence of prosthetic heart valve; Z79.01 Long term (current) use of anticoagulants
CPT/HCPCS: 36415; 70450; 71046; 80053; 81001; 82140; 82550; 83605; 83735; 83880; 84100; 84443; 84484; 85025; 85610; 85730; 93005; 96360; 99285

== ENCOUNTER → 2021-05-01 | Outpatient (CLI) | payer MEDICARE ==
--- NOTE | 2021-05-01 08:17 | US ---
EXAMINATION TYPE: US carotid duplex BILAT DATE OF EXAM: 05/01/2021 COMPARISON: 10/11/2019 CLINICAL HISTORY: I65.23 Occulsion Stenosis. dizziness EXAM MEASUREMENTS: RIGHT: Peak Systolic Velocity (PSV) cm/sec ----- Right CCA: 84.2 ----- Right ICA: 111.7 ----- Right ECA: 112.1 ICA/CCA ratio: 1.3 RIGHT: End Diastole cm/sec ----- Right CCA: 24.8 ----- Right ICA: 30.3 ----- Right ECA: 15.0 LEFT: Peak Systolic Velocity (PSV) cm/sec ----- Left CCA: 83.1 ----- Left ICA: 148.0 ----- Left ECA: 154.4 ICA/CCA ratio: 1.8 LEFT: End Diastole cm/sec ----- Left CCA: 25.9 ----- Left ICA: 55.9 ----- Left ECA: 31.7 VERTEBRALS (direction of flow): Right Vertebral: Antegrade Left Vertebral: Antegrade Rhythm: Normal Moderate plaque bilateral bifurcations. increased velocities left ICA and left ECA IMPRESSION: Moderate bilateral plaque with no significant hemodynamic stenosis. NASCET criteria was used in interpretation of this exam? Criteria for Assigning % of Stenosis / Diameter reduction (Estimation based on the indirect measurements of the internal carotid artery velocities (ICA PSV). 1. Normal (no stenosis)=ICA PSV < 125 cm/s: ratio < 2.0: ICA EDV<40 cm/s. 2. Less than 50% stenosis=ICA PSV < 125 cm/s: ratio < 2.0: ICA EDV<40 cm/s. 3. 50 to 69% stenosis=ICA PSV of 125 to 230 cm/s: ration 2.0 ? 4.0: ICA EDV 40-100 cm/s. 4. Greater than 70% stenosis to near occlusion= ICA PSV > 230 cm/s: ratio > 4.0: ICA EDV > 100 cm/s. 5. Near occlusion= ICA PSV velocities may be low or undetectable: variable ratio and ICA EDV. 6. Total occlusion=unable to detect flow.
== END | disposition home or self-care (01) ==
LOC: RADUSWWP 07:40
PROVIDERS: ATTEND Internal Medicine Geriatric Medicine
DX: I65.23 Occlusion and stenosis of bilateral carotid arteries (principal)
CPT/HCPCS: 93880

== ENCOUNTER 2021-05-29 10:35 | Observation (INO) | payer MEDICARE ==
[2021-05-29] MEDS ORDERED: SODIUM CHLORIDE 0.9% 500 ML 500 ML IV STA (11:04)
[2021-05-29 11:06] LABS: Glucose,Whole Blood 111 mg/dL (75-99)
[2021-05-29 11:18] LABS: Basophils # (A) 0.1 k/uL (0-0.2); Basophils % (A) 1 %; Eosinophils # (A) 0.6 k/uL (0-0.7); Eosinophils % (A) 8 %; HCT 40.2 % (34.0-46.0); HGB 13.2 gm/dL (11.4-16.0); Lymphocytes % (A) 25 %; MCH 30.5 pg (25.0-35.0); MCHC 32.9 g/dL (31.0-37.0); MCV 92.7 fL (80.0-100.0); Mean Platelet Volume 8.7; Monocytes # (A) 0.6 k/uL (0-1.0); Monocytes % (A) 7 %; Neutrophils # (A) 4.4 k/uL (1.3-7.7); Neutrophils % (A) 57 %; Platelet Count 173 k/uL (150-450); RBC 4.34 m/uL (3.80-5.40); RDW 13.4 % (11.5-15.5); WBC 7.7 k/uL (3.8-10.6)
[2021-05-29 11:27] LABS: Partial Thromboplastin Time 24.3 sec (22.0-30.0); Prothrombin Time 10.9 sec (9.0-12.0)
[2021-05-29 11:35] LABS: ALT 19 U/L (4-34); AST 41 U/L (14-36); African American GFR (CKD) >90 (>60 ml/min/1.73 sqM); Albumin 4.6 g/dL (3.5-5.0); Alkaline Phosphatase 154 U/L (38-126); Anion Gap 11 mmol/L; Blood Urea Nitrogen 13 mg/dL (7-17); Calcium 10.1 mg/dL (8.4-10.2); Carbon Dioxide 22 mmol/L (22-30); Chloride 106 mmol/L (98-107); Glucose 106 mg/dL (74-99); Non-African American GFR(CKD) 85 (>60 ml/min/1.73 sqM); Potassium 4.4 mmol/L (3.5-5.1); Sodium 139 mmol/L (137-145); Total Bilirubin 0.8 mg/dL (0.2-1.3); Total Protein 8.6 g/dL (6.3-8.2)
--- NOTE | 2021-05-29 11:39 | ED ---
General Adult HPI - General Chief complaint: Neuro Symptoms/Deficit Stated complaint: confusion, rt sided tingling Time Seen by Provider: 05/29/21 10:40 Source: patient, RN notes reviewed, old records reviewed Mode of arrival: wheelchair Limitations: no limitations - History of Present Illness Initial comments: This is a 71-year-old female who has a past medical history significant for valve replacement as well as atrial fibrillation and she is on eliquis. Patient states she also had a TIA where she had expressive aphasia about 4 months ago. Patient comes in today because just prior to arrival she has some expressive aphasia the last for 10-15 minutes and then resolved. Patient states she had an ocular migraine but no headache. Patient stated she had it 3 times this morning and that unusual. Patient denies any facial drooping that she noted patient denied any weakness or numbness. Patient states currently she feels at her baseline. - Related Data Home Medications Medication Instructions Recorded Confirmed Pantoprazole Sodium [Protonix] 40 mg PO DAILY 06/29/14 05/29/21 metHOTREXate sodium [Methotrexate] 12.5 mg PO MO 07/20/19 05/29/21 Apixaban [Eliquis] 5 mg PO BID@0800,199911/28/19 05/29/21 Folic Acid 1 mg PO DAILY 11/28/19 05/29/21 Simponi 100 mg SQ Q56D 11/28/19 05/29/21 Calcium Carbonate/Vitamin D3 2 tab PO DAILY 10/24/20 05/29/21 [Calcium 500Mg-Vit D3 15 mcg (600 unit)] Metoprolol Succinate (ER) [Toprol 25 mg PO DAILY 10/24/20 05/29/21 Xl] Zinc 50 mg PO DAILY 10/24/20 05/29/21 Apple Cider Vinegar 480 mg PO DAILY 05/29/21 05/29/21 Ascorbic Acid [Vitamin C] 500 mg PO DAILY 05/29/21 05/29/21 Cholecalciferol (Vitamin D3) 125 mcg PO DAILY 05/29/21 05/29/21 [Vitamin D3 (125 MCG = 5,000 IU)] Garlic 1 tab PO DAILY 05/29/21 05/29/21 Lidocaine 5% Patch [Lidoderm] 1 patch TOPICAL DAILY 05/29/21 05/29/21 Rosuvastatin [Crestor] 20 mg PO DAILY 05/29/21 05/29/21 Allergies Allergy/AdvReac Type Severity Reaction Status Date / Time No Known Allergies Allergy Verified 05/29/21 11:58 Review of Systems ROS Statement: Those systems with pertinent positive or pertinent negative responses have been documented in the HPI. ROS Other: All systems not noted in ROS Statement are negative. Past Medical History Past Medical History: Atrial Fibrillation, GERD/Reflux, Hyperlipidemia, Rheumatoid Arthritis (RA) Additional Past Medical History / Comment(s): Compression fracture of L4 and L3 recently treated with kyphoplasty. Compression fracture L2 which is being treated conservatively compression fx L3-sx done. 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 History of Any Multi-Drug Resistant Organisms: None Reported Past Surgical History: Back Surgery, Cardiac Ablation, Orthopedic Surgery, Tonsillectomy Additional Past Surgical History / Comment(s): CATARATS LENS IMPLANTS, RT FOOT REMOVED 3 NODULES, right foot bone removed 05/18/18. Colonoscopy 2015(next after 5 years). Back surgery 07/15/2018 and 07/22/2018. Cardiac ablation surgery, epidural steroid injections for back pain, MITRAL VALVE REPLACEMENT. Story-Maze Afib procedure. Past Anesthesia/Blood Transfusion Reactions: No Reported Reaction Additional Past Anesthesia/Blood Transfusion Reaction / Comment(s): VERTIGO ON A CRUISE Past Psychological History: No Psychological Hx Reported Smoking Status: Former smoker Past Alcohol Use History: Occasional Past Drug Use History: None Reported - Past Family History Father Family Medical History: Cancer, Neurologic Disorder Additional Family Medical History / Comment(s): Prostate cancer. ARRYTHMIA, CORNEAL IMPLANTS, LT EYE BLIND , PARKINSONS, FATHER HAS Mother Family Medical History: Cancer, Coronary Artery Disease (CAD), Diabetes Mellitus, Myocardial Infarction ([place]) Additional Family Medical History / Comment(s): Uterine cancer. CATARACTS, DETATCHED RETINA, GLAUCOMA, MACULAR DEGENERATION, STENTS, BOWEL RESECTION FOR DIVERTICULITIS, KATINA KNEE REPLACEMENT. recently Brother(s) Family Medical History: CVA/TIA Additional Family Medical History / Comment(s): stroke at 65 Sister(s) Family Medical History: No Reported History General Exam - General Exam Comments Initial Comments: GENERAL: Patient is well-developed and well-nourished. Patient is nontoxic and well- hydrated and is in no acute distress. ENT: Neck is soft and supple. No significant lymphadenopathy is noted. Oropharynx is clear. Moist mucous membranes. Neck has full range of motion without eliciting any pain. EYES: The sclera were anicteric and conjunctiva were pink and moist. Extraocular movements were intact and pupils were equal round and reactive to light. Eyelids were unremarkable. PULMONARY: Unlabored respirations. Good breath sounds bilaterally. No audible rales rhonchi or wheezing was noted. CARDIOVASCULAR: There is a regular rate and rhythm without any murmurs gallops or rubs. ABDOMEN: Soft and nontender with normal bowel sounds. SKIN: Skin is clear with no lesions or rashes and otherwise unremarkable. NEUROLOGIC: Patient is alert and oriented x3. Cranial nerves II through XII are grossly intact. Motor and sensory are also intact. Normal speech, volume and content. Symmetrical smile. MUSCULOSKELETAL: Normal extremities with adequate strength and full range of motion. No lower extremity swelling or edema. No calf tenderness. LYMPHATICS: No significant lymphadenopathy is noted PSYCHIATRIC: Normal psychiatric evaluation. Limitations: no limitations Course Vital Signs 05/29/21 05/29/21 05/29/21 10:40 11:05 11:20 Temperature 97.9 F Pulse Rate 83 81 77 Respiratory 17 18 18 Rate Blood Pressure 161/96 157/85 158/103 O2 Sat by Pulse 98 98 99 Oximetry 05/29/21 12:20 Temperature Pulse Rate 75 Respiratory 18 Rate Blood Pressure 141/77 O2 Sat by Pulse 97 Oximetry Medical Decision Making - Medical Decision Making EKG shows a wide QRS complex no P wave is noted. Ventricular rate is 82 bpm QRS is 128 QT interval 420 QTC is 490. Patient's EKG also shows a right bundle branch block. CT of the brain shows no acute abnormalities I spoke with Dr. Esteban he agreed to admit the patient admitted the patient wrote admitting orders. I consulted Dr. PÉREZ Patient remains at her baseline without any symptoms throughout her ED stay - Lab Data Result diagrams: 05/29/21 11:10 05/29/21 11:10 Lab Results 05/29/21 05/29/21 05/29/21 Range/Units 11:04 11:10 11:10 WBC 7.7 (3.8-10.6) k/uL RBC 4.34 (3.80-5.40) m/uL Hgb 13.2 (11.4-16.0) gm/dL Hct 40.2 (34.0-46.0) % MCV 92.7 (80.0-100.0) fL MCH 30.5 (25.0-35.0) pg MCHC 32.9 (31.0-37.0) g/dL RDW 13.4 (11.5-15.5) % Plt Count 173 (150-450) k/uL MPV 8.7 Neutrophils % 57 % Lymphocytes % 25 % Monocytes % 7 % Eosinophils % 8 % Basophils % 1 % Neutrophils # 4.4 (1.3-7.7) k/uL Lymphocytes # 2.0 (1.0-4.8) k/uL Monocytes # 0.6 (0-1.0) k/uL Eosinophils # 0.6 (0-0.7) k/uL Basophils # 0.1 (0-0.2) k/uL PT 10.9 (9.0-12.0) sec INR 1.0 (<1.2) APTT 24.3 (22.0-30.0) sec Sodium (137-145) mmol/L Potassium (3.5-5.1) mmol/L Chloride (98-107) mmol/L Carbon Dioxide (22-30) mmol/L Anion Gap mmol/L BUN (7-17) mg/dL Creatinine (0.52-1.04) mg/dL Est GFR (CKD-EPI)AfAm (>60 ml/min/1.73 sqM) Est GFR (CKD-EPI)NonAf (>60 ml/min/1.73 sqM) Glucose (74-99) mg/dL POC Glucose (mg/dL) 111 H (75-99) mg/dL POC Glu Tetryl Screen Operator ID Collins Lucia Calcium (8.4-10.2) mg/dL Total Bilirubin (0.2-1.3) mg/dL AST (14-36) U/L ALT (4-34) U/L Alkaline Phosphatase (38-126) U/L Troponin I (0.000-0.034) ng/mL Total Protein (6.3-8.2) g/dL Albumin (3.5-5.0) g/dL 05/29/21 05/29/21 Range/Units 11:10 11:10 WBC (3.8-10.6) k/uL RBC (3.80-5.40) m/uL Hgb (11.4-16.0) gm/dL Hct (34.0-46.0) % MCV (80.0-100.0) fL MCH (25.0-35.0) pg MCHC (31.0-37.0) g/dL RDW (11.5-15.5) % Plt Count (150-450) k/uL MPV Neutrophils % % Lymphocytes % % Monocytes % % Eosinophils % % Basophils % % Neutrophils # (1.3-7.7) k/uL Lymphocytes # (1.0-4.8) k/uL Monocytes # (0-1.0) k/uL Eosinophils # (0-0.7) k/uL Basophils # (0-0.2) k/uL PT (9.0-12.0) sec INR (<1.2) APTT (22.0-30.0) sec Sodium 139 (137-145) mmol/L Potassium 4.4 (3.5-5.1) mmol/L Chloride 106 (98-107) mmol/L Carbon Dioxide 22 (22-30) mmol/L Anion Gap 11 mmol/L BUN 13 (7-17) mg/dL Creatinine 0.72 (0.52-1.04) mg/dL Est GFR (CKD-EPI)AfAm >90 (>60 ml/min/1.73 sqM) Est GFR (CKD-EPI)NonAf 85 (>60 ml/min/1.73 sqM) Glucose 106 H (74-99) mg/dL POC Glucose (mg/dL) (75-99) mg/dL POC Glu Tetryl Screen Operator ID Calcium 10.1 (8.4-10.2) mg/dL Total Bilirubin 0.8 (0.2-1.3) mg/dL AST 41 H (14-36) U/L ALT 19 (4-34) U/L Alkaline Phosphatase 154 H (38-126) U/L Troponin I <0.012 (0.000-0.034) ng/mL Total Protein 8.6 H (6.3-8.2) g/dL Albumin 4.6 (3.5-5.0) g/dL Disposition Clinical Impression: Cerebrovascular accident (CVA) Disposition: ADMITTED IP TO THIS HOSP Time of Disposition: 12:42
--- NOTE | 2021-05-29 11:58 | CT ---
EXAMINATION TYPE: CT brain wo con for TPA DATE OF EXAM: 05/29/2021 COMPARISON: 03/16/2021 INDICATION: Neuro deficit stroke suspected DLP: 1063.4 mGycm, Automated exposure control for dose reduction was used. CONTRAST: None CT of the brain is performed utilizing 3 mm thick sections through the posterior fossa and 3 mm thick sections through the remaining calvarium. Study is performed within 24 hours of arrival to the hosp [facility]. No abnormal hyperdensity is present to suggest an acute intracranial hemorrhage. No mass lesion is evident. No acute infarcts are evident. Ventricles and sulci are appropriate for the patient age. Paranasal sinuses and mastoid air cells within the [id number] are clear. IMPRESSIONS: 1. No acute intracranial process radiographically apparent. MRI could be performed for closer evalu ation of acute neurologic deficits.
[2021-05-29] MEDS ORDERED: ASPIRIN 325 MG TAB PO STA (12:43)
--- NOTE | 2021-05-29 12:49 | XR ---
EXAMINATION TYPE: XR chest 2V DATE OF EXAM: 05/29/2021 COMPARISON: 03/16/2021 INDICATION: Altered mental status TECHNIQUE: Frontal and lateral views of the chest are obtained. FINDINGS: The heart size is upper limits of normal. The pulmonary vasculature is normal. No suspicious focal consolidations are evident.. Sternotomy wires are present from prior cardiac ivan ve surgery. Stimulator leads are within the spinal canal. IMPRESSION: 1. No acute pulmonary process.
--- NOTE | 2021-05-29 14:52 | P.CNNES ---
History of Present Illness Consult date: 05/29/21 Requesting physician: Sven Dougherty Reason for Consult: TIA History of Present Illness: Patient is a 71-year-old female came to the hospital today at 10:35 AM for possible stroke/TIA. Patient states that she was talking to her niece on the phone, who is also a nurse, at around 10 AM, when she started slurring words, not making sense. Random words would come out of her mouth. She tried to talk, but nothing would come out right. She wanted to say "I'm getting another cup of coffee", but nothing would come out right. Until she relaxed, and slowly words did came out. The symptoms lasted for about 10 minutes. Around the same time she also noticed some right perioral tingling and numbness, mainly involving the right upper lip. She also felt some droopiness of the right lower side of the face. The speech difficulty lasted for 10 minutes, but she still has persistent perioral numbness tingling on the right side, mainly involving the right upper lip and some feeling of droopiness of the right upper lip. She called her brother, who brought her to the hospital. Patient denied any focal symptoms involving her extremities. Denies any problem with the vision. She did develop right frontal headache subsequently, which is very unusual, as she never gets headache. Patient's vital signs on arrival blood pressure 161/96, pulse rate 83, temperature 97.9. Patient's blood tests shows normal CBC, PT/PTT, normal Chem- 7. AST is 41, ALT 19. Troponin negative. Patient underwent computed tomography scan of the head, which revealed no acute intracranial process. Chest x-ray showed no acute process. EKG shows wide QRS rhythm, right bundle branch block. Patient states that she had 2 other spells of TIA in the last couple years. The first one occurred in October 2018 which was exactly similar thing, when she was sitting, talking, all of a sudden felt saying random words like "now [place]". She had a second spell about couple months ago when she woke up in midnight, when she felt confused, did not know where she was at. Patient was seen by her primary physician, who initiated an MRI of the brain which was performed at [facility]. Patient had a carotid Doppler performed on 05/01/2021 which revealed moderate plaque bilaterally with no significant stenosis. Antegrade flow in both vertebral arteries. On reviewing her previous records, it appears patient had a CTA of head and neck on 10/10/2019, which revealed probably more than 90% stenosis at the origin of left ICA. Bilateral plaque formation at the carotid artery bifurcation. Patient subsequently underwent cerebral angiography on 10/10/2019, which revealed approximately 50% left ICA stenosis. Patient did not undergo any intervention at that time. Patient also had JOSE L on 12/01/2019 which revealed mitral valve is bioprosthetic valve. The mitral valve shunts are stable. No periprosthetic valvular leak. There is a mild central mitral regurgitation noted. Mitral valve leaflets are free of any vegetation. Left atrium appears mildly enlarged. Left ventricle had normal size and systolic function with an EF of 60%. There are echo dense lesions noted within the left ventricle which probably represents remnants of her own chordal structure. Patient currently takes Eliquis 5 mg twice a day, Crestor 20 mg, metoprolol methotrexate Protonix and Simponi for rheumatoid arthritis. She has history of RA since she was age 28. Patient denies hypertension or diabetes. She had bypass surgery in November 2020. Patient denies tobacco use. Review of Systems As above in detail. Patient has arthritis. She has right frontal headache which is new. She still has some right facial droopiness. Denies any double vision or loss of vision. No hoarseness, sore throat, dysphagia. Denies any abdominal pain nausea vomiting diarrhea. Denies any chest pain or shortness of breath or double vision. Denies any fever or chills. No cough. No dysuria. No hematuria. No depression or anxiety. Past Medical History Past Medical History: Atrial Fibrillation, GERD/Reflux, Hyperlipidemia, Rheumatoid Arthritis (RA) Additional Past Medical History / Comment(s): Compression fracture of L4 and L3 recently treated with kyphoplasty. Compression fracture L2 which is being treated conservatively compression fx L3-sx done. 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 History of Any Multi-Drug Resistant Organisms: None Reported Past Surgical History: Back Surgery, Cardiac Ablation, Orthopedic Surgery, Tonsillectomy Additional Past Surgical History / Comment(s): CATARATS LENS IMPLANTS, RT FOOT REMOVED 3 NODULES, right foot bone removed 05/18/18. Colonoscopy 2016(next after 5 years). Back surgery 07/15/2018 and 07/22/2018. Cardiac ablation surgery, epidural steroid injections for back pain, MITRAL VALVE REPLACEMENT. Story-Maze Afib procedure. Past Anesthesia/Blood Transfusion Reactions: No Reported Reaction Additional Past Anesthesia/Blood Transfusion Reaction / Comment(s): VERTIGO ON A CRUISE Past Psychological History: No Psychological Hx Reported Smoking Status: Former smoker Past Alcohol Use History: Occasional Past Drug Use History: None Reported - Past Family History Father Family Medical History: Cancer, Neurologic Disorder Additional Family Medical History / Comment(s): Prostate cancer. ARRYTHMIA, CORNEAL IMPLANTS, LT EYE BLIND , PARKINSONS, FATHER HAS Mother Family Medical History: Cancer, Coronary Artery Disease (CAD), Diabetes M ellitus, Myocardial Infarction ([place]) Additional Family Medical History / Comment(s): Uterine cancer. CATARACTS, DETATCHED RETINA, GLAUCOMA, MACULAR DEGENERATION, STENTS, BOWEL RESECTION FOR DIVERTICULITIS, KATINA KNEE REPLACEMENT. recently Brother(s) Family Medical History: CVA/TIA Additional Family Medical History / Comment(s): stroke at 65 Sister(s) Family Medical History: No Reported History Medications and Allergies Home Medications Medication Instructions Recorded Confirmed Type Pantoprazole Sodium [Protonix] 40 mg PO DAILY 06/29/14 05/29/21 History metHOTREXate sodium [Methotrexate] 12.5 mg PO MO 07/20/19 05/29/21 History Apixaban [Eliquis] 5 mg PO BID@0800,2000 11/28/19 05/29/21 History Folic Acid 1 mg PO DAILY 11/28/19 05/29/21 History Simponi 100 mg SQ Q56D 11/28/19 05/29/21 History Calcium Carbonate/Vitamin D3 2 tab PO DAILY 10/24/20 05/29/21 History [Calcium 500Mg-Vit D3 15 mcg (600 unit)] Metoprolol Succinate (ER) [Toprol 25 mg PO DAILY 10/24/20 05/29/21 History XL] Zinc 50 mg PO DAILY 10/24/20 05/29/21 History Apple Cider Vinegar 480 mg PO DAILY 05/29/21 05/29/21 History Ascorbic Acid [Vitamin C] 500 mg PO DAILY 05/29/21 05/29/21 History Cholecalciferol (Vitamin D3) 125 mcg PO DAILY 05/29/21 05/29/21 History [Vitamin D3 (125 MCG = 5,000 IU)] Garlic 1 tab PO DAILY 05/29/21 05/29/21 History Lidocaine 5% Patch [Lidoderm 5% 1 patch TOPICAL DAILY 05/29/21 05/29/21 History Patch] Rosuvastatin [Crestor] 20 mg PO DAILY 05/29/21 05/29/21 History Aspirin EC [Ecotrin Low Dose] 81 mg PO DAILY #30 tab 05/30/21 Rx Allergies Allergy/AdvReac Type Severity Reaction Status Date / Time No Known Allergies Allergy Verified 05/29/21 11:58 Physical Examination - Vital Signs Vital Signs: Vital Signs Temp Pulse Resp BP Pulse Ox 05/29/21 13:37 80 18 139/77 100 05/29/21 12:44 73 18 132/79 98 05/29/21 12:20 75 18 141/77 97 05/29/21 11:20 77 18 158/103 99 05/29/21 11:05 81 18 157/85 98 05/29/21 10:40 97.9 F 83 17 161/96 98 Intake and Output 05/28/21 05/29/21 05/29/21 22:59 06:59 14:59 Other: Weight 62.596 kg Patient is an elderly female, very pleasant, in no acute distress. Patient is alert, awake oriented to time place and person. Speech and language functions are normal. Attention, concentration and fund of knowledge is adequ ate. On cranial examination, pupils are round and reacting to light, visual silva are full on confrontation, extraocular muscles are intact with no nystagmus. Patient has mild right facial asymmetry. Her tongue protrudes to the midline. Palatal elevation and sensation normal, hearing and shoulder shrug normal, facial sensation normal. Shoulder shrug normal. On muscle strength testing, there is no pronator drift and the strength is normal in arms and legs distally and proximally. Deltoids not checked because of her arthritis. Deep tendon reflexes are 1-1+, symmetric bilaterally. Plantars downgoing. Sensory to touch is equal with no neglect. Cerebellar function showed no ataxia for [id number] testing. No dysdiadochokinesia. Tone and bulk of muscles normal. Gait not checked. Had no problems with balance prior to arrival. On general examination, there is no carotid bruit, S1-S2 audible. No obvious murmur. Abdomen is soft nontender. Chest is clear. Peripheral pulses are present. No edema. Results - Laboratory Findings CBC and BMP: 05/29/21 11:10 05/29/21 11:10 Abnormal Lab Findings: Abnormal Labs 05/29/21 05/29/21 11:04 11:10 Glucose 106 H POC Glucose (mg/dL) 111 H AST 41 H Alkaline Phosphatase 154 H Total Protein 8.6 H Assessment and Plan Assessment: * Probable stroke versus TIA manifesting with transient expressive aphasia that resolved in 10 minutes, however had persistent mild right perioral numbness, tingling and mild right facial weakness. * History of TIA 2 in the past, with no residual deficits. * History of left ICA stenosis at least 50%. * Atrial fibrillation on anticoagulation * Mitral valve replacement * History of back surgery * History of compression fracture. * Coronary artery disease Plan: * CTA of head and neck to rule out any intracranial atherosclerotic disease. Patient did have a cerebral angiogram performed on 10/10/2019, which revealed only left ICA stenosis of 50%. * Suggest starting aspirin 81 mg daily along with Eliquis for stroke prevention related to atherosclerotic cerebrovascular disease. * Fasting lipid panel. Hemoglobin A1c. * Telemetric monitoring. * Patient had a JOSE L performed on 12/01/2019, which revealed no evidence of vegetation and normally functioning bioprosthetic mitral valve with mild central mitral regurgitation. * Discussed with primary physician. * We will obtain report of MRI of the brain performed recently at [facility]. * Thank you for the consult. Time with Patient: Greater than 30
--- NOTE | 2021-05-29 17:36 | CT ---
EXAMINATION TYPE: CT angio head neck DATE OF EXAM: 05/29/2021 HISTORY: possible stroke COMPARISON: None available. CT DLP: 431.7 mGycm. Automated Exposure Control for Dose Reduction was Utilized. TECHNIQUE: CTA scan of the head/neck is performed with IV Contrast, patient injected with 100 mL of Isovue 370, axial images are obtained, coronal and sagittal reformatted images are reviewed. 3D recon structed images are created on an independent workstation and reviewed. FINDINGS: There is moderate atherosclerosis of the aortic arch with moderate 50-70% stenosis of the left subcla vian origin. Also moderate left and mild right common carotid bulb atherosclerotic plaques. Otherwise normal three-vessel branching of the aorta. Otherwise no additional high-grade stenosis, dissection or aneurysm seen in the bilateral common carotid, cervical internal carotid and vertebral arteries. There is no evidence of high-grade stenosis, dissection or aneurysm in the intracranial internal narayanan tid arteries, anterior, middle and posterior cerebral arteries as well as in the imaged vertebral and basilar arteries. The communicating arteries are unremarkable IMPRESSION: No acute abnormality of the CTA head/neck. 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 Otherwise no hemodynamically significant stenosis of the carotid arteries. NASCET criteria was used in interpretation of this exam?
--- NOTE | 2021-05-29 21:39 | P.HPIM ---
History of Present Illness H&P Date: 05/29/21 Chief Complaint: TIA/CVA, rheumatoid arthritis, A. fib, post mitral valve re placement, chron HISTORY OF PRESENT ILLNESS 71-year-old female one of my office patient with multiple medical problem was known to have history of rheumatoid arthritis, history of TIA in the past, history of sepsis, history of mitral valve replacement, history of A. fib with RVR, chronic lower back pain with L4 compression, recurrent abdominal pain, history of palpitation and severe GERD. Patient presented to [facility] at [facility] in the morning with possible history of stroke according to her she was talking to her niece on the phone when all of a sudden developed to have significant expression aphasia not been able to express herself and had more salad worth and more slurred the same time developed to have slight numbness in the right side of her face with slightly droopy face. When she relaxer expression has improved little bit otherwise was off. Also patient developed to have slight sign and symptom of visual effect lasted for short period of time disappear. Ended up coming to the emergency department at the time was exam her blood pressure was quite bit elevated at 160/91 continue to have slightly droopy face of the right side. Patient apparently had 2 episodes of TIA one of them had quite bit headache following the episode along with mild aura and visual effect. Had MRI of the brain was performed beginning of May result were consistent with no major abnormality whatsoever. Also patient had carotid ultrasound showed mild stenosis only. Patient has been treated with anticoagulation for A. fib with RVR she had bioprosthetic valve which has been well managed lately shortly after her mitral valve surgery patient developed to have an acute episode of endocarditis was treated for it and recover with no major sequelae or complication. Also patient has been treated for rheumatoid arthritis has been on immunosuppressive agent with methotrexate seen rheumatology regular basis. At the time patient was seen in [facility] today CAT scan of the brain didn't show any major abnormality quality assurance monitor final with pulse rate running in the 60s and 70s. Patient was seen and evaluated by neurology decided to do CT of the neck and to review her MRI from 2 weeks ago to watch patient in the hospital initially was start PTOT and see if she any residual with balance and gait. REVIEW OF SYSTEMS Constitutional: No fever, no chills, no night sweats. No weight change. Positive generalized weakness fatigue and mild lethargy. EENT: No headache. No blurred vision or double vision, no loss of vision. No loss of Hearing, no ringing in the ears, no dizziness. No nasal drainage or congestion. No epistaxis. No sore throat. No further droopy face was found. Lungs: No shortness of breath, cough, no sputum production. No wheezing. Cardiovascular: No chest pain or angina but mild palpitation on and off with history of A. fib no PND or orthopnea Abdominal: No abdominal pain. No nausea, vomiting. No diarrhea. No constipation. No bloody or tarry stools.. No loss of appetite. Genitourinary: No dysuria, increased frequency, urgency. No urinary retention. Musculoskeletal: Generalized muscle and joint pain with lower back pain and generalized arthralgia all over body. Integumentary: No wounds, no lesions. No rash or pruritus. No unusual bruising. No change in hair or nails. Neurologic: With exam she had slight expression aphasia along with droopy face and? Of right-sided weakness only. Psychiatric: No depression. No anxiety. No mood swings. Endocrine: No abnormal blood sugars. No weight change. No excessive sweating or thirst. No cold intolerance. SOCIAL HISTORY She does not smoke no ocular abuse no drug use she is retired and lives with significant other she still very active does not use any CPAP or BiPAP no oxygen at home. FAMILY HISTORY Her mother dying from coronary artery disease and diabetes complication. Father from prostate cancer had arrhythmia and history of Parkinson disease. Patient had brother had stroke at age 65, patient does not have any children. PHYSICAL EXAMINATION Gen: This is a 72-year-old female slightly bit anxious resting comfortably does not look in any respiratory distress. HEENT: Head is atraumatic, normocephalic. Pupils equal, round. Sclerae is anicteric. No droopy face was found. NECK: Supple. No JVD. No lymphadenopathy. No thyromegaly. LUNGS: Clear to auscultation. No wheezes or rhonchi. No intercostal retractions. HEART: Irregular rate and rhythm, S1/S2, no S3, slight mitral valve click with no murmur. ABDOMEN: Soft. Bowel sounds are present. No masses. No tenderness. EXTREMITIES: No pedal edema. No calf tenderness. NEUROLOGICAL: Patient is awake, alert and oriented x3. Cranial nerves 2 through 12 are grossly intact. Both lower extremity are equal in strength in his upper extremity, reflexes are within normal limits, no abnormal gait at the time of exam. ASSESSMENT AND PLAN 1 TIA/CVA: Not clear etiology patient had some risk factor Will admit patient to the hospital, patient will be seen neurology, review her MRI from 2 weeks ago patient also will be going for CT of the neck to exclude any other possibility of carotid blockage not found with carotid ultrasound. The meanwhile patient is already on proper anticoagulation between aspirin and Eliquis continue medication. Will start and titrate physical therapy gradually see patient is able to tolerate it if there is any gross abnormality with weakness. 2 history of valvular heart disease post bio prostatic valve done this past November at [facility], patient has been doing well still seeing cardiology regular basis and we'll manage her medication. 3 A. fib with RVR: Pulse rates under control resume patient metoprolol and continue Eliquis at this point. 4 history of rheumatoid arthritis, has been on methotrexate 12.5 mg every Friday patient was on smaller dose of steroid has not been used in a while so far. 5 hypertension: Remain on Toprol-XL 25 mg a day. 6 hyperlipidemia: Remain on Crestor 20 mg a day. 7 severe GERD/GI prophylaxis: Remain on pantoprazole 40 mg a day. 8 DVT prophylaxis: Remain on anticoagulation with Eliquis 5 mg twice a day. CODE STATUS: Full code. Testing for COVID-19: Was negative. Admit patient to observation status for 1-2 nights stay. Past Medical History Past Medical History: Atrial Fibrillation, GERD/Reflux, Hyperlipidemia, Rh eumatoid Arthritis (RA) Additional Past Medical History / Comment(s): Compression fracture of L4 and L3 recently treated with kyphoplasty. Compression fracture L2 which is being treated conservatively compression fx L3-sx done. 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 History of Any Multi-Drug Resistant Organisms: None Reported Past Surgical History: Back Surgery, Cardiac Ablation, Orthopedic Surgery, Tonsillectomy Additional Past Surgical History / Comment(s): CATARATS LENS IMPLANTS, RT FOOT REMOVED 3 NODULES, right foot bone removed 05/18/18. Colonoscopy 2016(next after 5 years). Back surgery 07/15/2018 and 07/22/2018. Cardiac ablation surgery, epidural steroid injections for back pain, MITRAL VALVE REPLACEMENT. Story-Maze Afib procedure. Past Anesthesia/Blood Transfusion Reactions: No Reported Reaction Additional Past Anesthesia/Blood Transfusion Reaction / Comment(s): VERTIGO ON A CRUISE Past Psychological History: No Psychological Hx Reported Smoking Status: Former smoker Past Alcohol Use History: Occasional Past Drug Use History: None Reported - Past Family History Father Family Medical History: Cancer, Neurologic Disorder Additional Family Medical History / Comment(s): Prostate cancer. ARRYTHMIA, CORNEAL IMPLANTS, LT EYE BLIND , PARKINSONS, FATHER HAS Mother Family Medical History: Cancer, Coronary Artery Disease (CAD), Diabetes Mellitus, Myocardial Infarction ([place]) Additional Family Medical History / Comment(s): Uterine cancer. CATARACTS, DETATCHED RETINA, GLAUCOMA, MACULAR DEGENERATION, STENTS, BOWEL RESECTION FOR DIVERTICULITIS, KATINA KNEE REPLACEMENT. recently Brother(s) Family Medical History: CVA/TIA Additional Family Medical History / Comment(s): stroke at 65 Sister(s) Family Medical History: No Reported History Medications and Allergies Home Medications Medication Instructions Recorded Confirmed Type Pantoprazole Sodium [Protonix] 40 mg PO DAILY 06/29/14 05/29/21 History metHOTREXate sodium [Methotrexate] 12.5 mg PO MO 07/20/19 05/29/21 History Apixaban [Eliquis] 5 mg PO BID@0800,199911/28/19 05/29/21 History Folic Acid 1 mg PO DAILY 11/28/19 05/29/21 History Simponi 100 mg SQ Q56D 11/28/19 05/29/21 History Calcium Carbonate/Vitamin D3 2 tab PO DAILY 10/24/20 05/29/21 History [Calcium 500Mg-Vit D3 15 mcg (600 unit)] Metoprolol Succinate (ER) [Toprol 25 mg PO DAILY 10/24/20 05/29/21 History Xl] Zinc 50 mg PO DAILY 10/24/20 05/29/21 History Apple Cider Vinegar 480 mg PO DAILY 05/29/21 05/29/21 History Ascorbic Acid [Vitamin C] 500 mg PO DAILY 05/29/21 05/29/21 History Cholecalciferol (Vitamin D3) 125 mcg PO DAILY 05/29/21 05/29/21 History [Vitamin D3 (125 MCG = 5,000 IU)] Garlic 1 tab PO DAILY 05/29/21 05/29/21 History Lidocaine 5% Patch [Lidoderm] 1 patch TOPICAL DAILY 05/29/21 05/29/21 History Rosuvastatin [Crestor] 20 mg PO DAILY 05/29/21 05/29/21 History Allergies Allergy/AdvReac Type Severity Reaction Status Date / Time No Known Allergies Allergy Verified 05/29/21 11:58 Physical Exam Vitals: Vital Signs Temp Pulse Resp BP Pulse Ox 05/29/21 13:37 80 18 139/77 100 05/29/21 12:44 73 18 132/79 98 05/29/21 12:20 75 18 141/77 97 05/29/21 11:20 77 18 158/103 99 05/29/21 11:05 81 18 157/85 98 05/29/21 10:40 97.9 F 83 17 161/96 98 Intake and Output 05/28/21 05/29/21 05/29/21 22:59 06:59 14:59 Other: Weight 62.596 kg Results CBC & Chem 7: 05/29/21 11:10 05/29/21 11:10 Labs: Abnormal Lab Results - Last 24 Hours (Table) 05/29/21 05/29/21 Range/Units 11:04 11:10 Glucose 106 H (74-99) mg/dL POC Glucose (mg/dL) 111 H (75-99) mg/dL AST 41 H (14-36) U/L Alkaline Phosphatase 154 H (38-126) U/L Total Protein 8.6 H (6.3-8.2) g/dL
[2021-05-30] MEDS ORDERED: PANTOPRAZOLE 40 MG TABLET PO SCH (07:30)
[2021-05-30] MEDS ORDERED: APIXABAN 5 MG TAB PO SCH (08:00)
[2021-05-30 08:19] VITALS: BP 119/75; PULSE 74; RESP 18; TEMP 97.9
[2021-05-30] MEDS ORDERED: ATORVASTATIN 40 MG TAB PO SCH (09:00)
[2021-05-30] MEDS ORDERED: ZINC SULFATE 220 MG CAP PO SCH (09:00)
[2021-05-30] MEDS ORDERED: NON FORMULARY DRUG (Garlic [Garlic] 1 EACH Tablet) PO SCH (09:00)
[2021-05-30] MEDS ORDERED: ASCORBIC ACID 500 MG TAB PO SCH (09:00)
[2021-05-30] MEDS ORDERED: METOPROLOL SUCCINATE (ER) 25 MG TAB.ER.24H PO SCH (09:00)
[2021-05-30] MEDS ORDERED: CHOLECALCIFEROL 25 MCG (1000 IU) TABLET PO SCH (09:00)
[2021-05-30] MEDS ORDERED: FOLIC ACID 1 MG TAB PO SCH (09:00)
[2021-05-30] MEDS ORDERED: LIDOCAINE 5% PATCH TOPICAL SCH (09:00)
[2021-05-30] MEDS ORDERED: ASPIRIN 325 MG TAB PO SCH (09:00)
[2021-05-30] MEDS ORDERED: APPLE CIDER VINEGAR PO SCH (09:00)
[2021-05-30] MEDS ORDERED: CALCIUM CARB-VIT D 500 MG-5 MCG TAB PO SCH (09:00)
--- NOTE | 2021-05-30 10:01 | P.DS ---
Providers Date of admission: 05/29/21 12:51 Expected date of discharge: 05/30/21 Attending physician: Les Esteban Consults: 05/29/21 12:44 Consult Physician Routine Consulting Provider: Vannessa Ansari Consult Reason/Comments: TIA Do you want consulting provider notified?: Yes Primary care physician: Les Esteban [facility] Course: HISTORY OF PRESENT ILLNESS 71-year-old female one of my office patient with multiple medical problem was known to have history of rheumatoid arthritis, history of TIA in the past, history of sepsis, history of mitral valve replacement, history of A. fib with RVR, chronic lower back pain with L4 compression, recurrent abdominal pain, history of palpitation and severe GERD. Patient presented to [facility] department at [facility] in the morning with possible history of stroke according to her she was talking to her niece on the phone when all of a sudden developed to have significant expression aphasia not been able to express herself and had more salad worth and more slurred the same time developed to have slight numbness in the right side of her face with slightly droopy face. When she relaxer expression has improved little bit otherwise was off. Also patient developed to have slight sign and symptom of visual effect lasted for short period of time disappear. Ended up coming to the emergency department at the time was exam her blood pressure was quite bit elevated at 160/91 continue to have slightly droopy face of the right side. Patient apparently had 2 episodes of TIA one of them had quite bit headache following the episode along with mild aura and visual effect. Had MRI of the brain was performed beginning of May result were consistent with no major abnormality whatsoever. Also patient had carotid ultrasound showed mild stenosis only. Patient has been treated with anticoagulation for A. fib with RVR she had bioprosthetic valve which has been well managed lately shortly after her mitral valve surgery patient developed to have an acute episode of endocarditis was treated for it and recover with no major sequelae or complication. Also patient has been treated for rheumatoid arthritis has been on immunosuppressive agent with methotrexate seen rheumatology regular basis. At the time patient was seen in [facility] today CAT scan of the brain didn't show any major abnormality electronic device monitor with pulse rate running in the 60s and 70s. Patient was seen and evaluated by neurology decided to do CT of the neck and to review her MRI from 2 weeks ago to watch patient in the hospital initially was start PTOT and see if she any residual with balance and gait. 05/30: Patient has been seen by neurology for possible TIA with recommendations for aspirin 81 mg daily along with eliquis. She denies any new complaints. She has been afebrile, heart rate 74, blood pressure 119/75, pulse ox 98% on room air. A1c is 5.5. Triglycerides 84, cholesterol 144, LDL 79, HDL 48. Patient will be discharged home today in stable condition. DISCHARGE DIAGNOSES 1 TIA versus optical migraine 2 history of valvular heart disease post bio prostatic valve done this past November at [facility] 3 chronic atrial fibrillation 4 history of rheumatoid arthritis 5 hypertension 6 hyperlipidemia 7 GERD DISCHARGE PLAN Home Impression and plan of care have been directed as dictated by the signing physician. Juliette Terrazas nurse practitioner acting as scribe for signing physician. Patient Condition at Discharge: Good Plan - Discharge Summary Discharge Rx Participant: Yes New Discharge Prescriptions: New Aspirin EC [Ecotrin Low Dose] 81 mg PO DAILY #30 tab Continue Pantoprazole Sodium [Protonix] 40 mg PO DAILY metHOTREXate sodium [Methotrexate] 12.5 mg PO MO Folic Acid 1 mg PO DAILY Apixaban [Eliquis] 5 mg PO BID@ Simponi 100 mg SQ Q56D Metoprolol Succinate (ER) [Toprol XL] 25 mg PO DAILY Calcium Carbonate/Vitamin D3 [Calcium 500Mg-Vit D3 15 mcg (600 unit)] 2 tab PO DAILY Zinc 50 mg PO DAILY Lidocaine 5% Patch [Lidoderm 5% Patch] 1 patch TOPICAL DAILY Rosuvastatin [Crestor] 20 mg PO DAILY Apple Cider Vinegar 480 mg PO DAILY Ascorbic Acid [Vitamin C] 500 mg PO DAILY Cholecalciferol (Vitamin D3) [Vitamin D3 (125 MCG = 5,000 IU)] 125 mcg PO DAILY Garlic 1 tab PO DAILY Discharge Medication List Pantoprazole Sodium [Protonix] 40 mg PO DAILY 06/29/14 [History] metHOTREXate sodium [Methotrexate] 12.5 mg PO MO 07/20/19 [History] Apixaban [Eliquis] 5 mg PO BID@11/28/19 [History] Folic Acid 1 mg PO DAILY 11/28/19 [History] Simponi 100 mg SQ Q56D 11/28/19 [History] Calcium Carbonate/Vitamin D3 [Calcium 500Mg-Vit D3 15 mcg (600 unit)] 2 tab PO DAILY 10/24/20 [History] Metoprolol Succinate (ER) [Toprol XL] 25 mg PO DAILY 10/24/20 [History] Zinc 50 mg PO DAILY 10/24/20 [History] Apple Cider Vinegar 480 mg PO DAILY 05/29/21 [History] Ascorbic Acid [Vitamin C] 500 mg PO DAILY 05/29/21 [History] Cholecalciferol (Vitamin D3) [Vitamin D3 (125 MCG = 5,000 IU)] 125 mcg PO DAILY 05/29/21 [History] Garlic 1 tab PO DAILY 05/29/21 [History] Lidocaine 5% Patch [Lidoderm 5% Patch] 1 patch TOPICAL DAILY 05/29/21 [History] Rosuvastatin [Crestor] 20 mg PO DAILY 05/29/21 [History] Aspirin EC [Ecotrin Low Dose] 81 mg PO DAILY #30 tab 05/30/21 [Rx] Follow up Appointment(s)/Referral(s): Les Esteban MD [Primary Care Provider] - 1 Week Arminda Rolle DO [STAFF PHYSICIAN] - 1 Week Last Saucedo MD [Medical Doctor] - 1 Week Patient Instructions/Handouts: Transient Ischemic Attack (DC) Discharge Disposition: HOME SELF-CARE
[2021-05-30 10:42] LABS: LDL Cholesterol,Calculated 79.2 mg/dL (0.0-131.0); VLDL Calculation 16.8 mg/dL (5.00-40.00)
--- NOTE | 2021-05-30 12:51 | EEG ---
ELECTROENCEPHALOGRAM REPORT DATE OF SERVICE: 05/30/2021 PREAMBLE: This is a 71-year-old female with recurrent TIAs. This study is performed to rule out any epileptiform activity. EEG FINDINGS: This is a 21-channel routine EEG recording in a patient utilizing 10/20 international system with referential and bipolar montages. Background consists of well developed, well regulated, moderate voltage activity in 9 hertz alpha. Background is posterior- dominant and reactive to eye opening and closing. Photic driving response was seen with some flash frequencies. Some drowsiness was seen with appearance of bilaterally symmetric theta frequency rhythm. Deeper stages of sleep were not seen. No focal or generalized epileptiform activity was seen. IMPRESSION: This is a normal awake and drowsy EEG. No focal, lateralized or epileptiform activity was seen. MMODL / IJN: [id number] /
--- NOTE | 2021-05-30 14:29 | P.PN ---
Subjective Progress Note Date: 05/30/21 Patient feels fine. No new focal symptoms. No headache. Objective - Vital Signs Vital signs: Vital Signs Temp 97.9 F 05/30/21 07:00 Pulse 74 05/30/21 08:00 Resp 18 05/30/21 08:00 BP 119/75 05/30/21 07:00 Pulse Ox 98 05/30/21 07:00 Intake & Output 05/29/21 05/30/21 05/30/21 18:59 06:59 18:59 Intake Total 120 240 Balance 120 240 Weight 62.596 kg Intake: Oral 120 240 Other: Voiding Method Toilet Toilet # Voids 1 1 - Exam Nonfocal. Visual silva normal. Face symmetric. Tongue protrudes the midline. No pronator drift. - Labs CBC & Chem 7: 05/29/21 11:10 05/29/21 11:10 Assessment and Plan Assessment: * Probable TIA manifesting with transient expressive aphasia that resolved in 10 minutes, and mild right perioral numbness, tingling and mild right facial weakness, which now also has resolved. * History of TIA 2 in the past, with no residual deficits. * History of left ICA stenosis at least 50%. * Atrial fibrillation on anticoagulation * Mitral valve replacement * History of back surgery * History of compression fracture. * Coronary artery disease Plan: * CTA of head and neck revealed no acute abnormality. 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 Otherwise no hemodynamically significant stenosis of the carotid arteries. Recommend patient follow up with Dr. Rolle as an outpatient, who knows her from the past. * Suggest starting aspirin 81 mg daily along with Eliquis for stroke prevention related to atherosclerotic cerebrovascular disease. * Fasting lipid panel with cholesterol 144, LDL 79, HDL 48 and triglycerides 84. Continue Crestor. * Hemoglobin A1c normal, 5.5. * Telemetry monitoring showing normal sinus rhythm with no other arrhythmia. * Patient had a JOSE L performed on 12/01/2019, which revealed no evidence of vegetation and normally functioning bioprosthetic mitral valve with mild central mitral regurgitation. * MRI of the brain performed 05/10/2021 at [facility] revealed unchanged moderate chronic small vessel ischemic disease. Altered Jose Alberto signal bilaterally. Approximately 10 punctate foci of chronic microhemorrhage supratentorially and infratentorially in a nonspecific distribution. Some of these were likely present on prior exam but are better appreciated today due to difference in technique. Others may be new or unchanged. Although these microhemorrhages carries some hemorrhagic risks, but with her recent TIA, the benefits of aspirin regimen outweigh the risks. * Neurologically clear for discharge.
[2021-05-31] MEDS ORDERED: ASPIRIN 81 MG PO SCH (09:00)
[2021-07-08] MEDS ORDERED: SIMPONI SQ SCH (20:30)
== END 2021-05-30 14:25 | disposition home or self-care (01) ==
LOC: EC 10:35 → 6NMEDSUR 12:51
PROVIDERS: ADMIT Internal Medicine Geriatric Medicine; ATTEND Internal Medicine Geriatric Medicine
DX: R20.2 Paresthesia of skin (principal); R47.01 Aphasia; R47.81 Slurred speech; R20.0 Anesthesia of skin; R29.810 Facial weakness; G43.B0 Ophthalmoplegic migraine, not intractable; R03.0 Elevated blood-pressure reading, without diagnosis of hypertension; I48.20 Chronic atrial fibrillation, unspecified; M06.9 Rheumatoid arthritis, unspecified; I10 Essential (primary) hypertension; E78.5 Hyperlipidemia, unspecified; K21.9 Gastro-esophageal reflux disease without esophagitis; G89.29 Other chronic pain; M54.5 Low back pain; G95.20 Unspecified cord compression; R10.9 Unspecified abdominal pain; I25.10 Atherosclerotic heart disease of native coronary artery without angina pectoris; I34.0 Nonrheumatic mitral (valve) insufficiency; I67.2 Cerebral atherosclerosis; I45.10 Unspecified right bundle-branch block; I65.23 Occlusion and stenosis of bilateral carotid arteries; M81.0 Age-related osteoporosis without current pathological fracture; M48.56XA Collapsed vertebra, not elsewhere classified, lumbar region, initial encounter for fracture; Z20.822 Contact with and (suspected) exposure to COVID-19; Z87.891 Personal history of nicotine dependence; Z95.2 Presence of prosthetic heart valve; Z86.73 Personal history of transient ischemic attack (TIA), and cerebral infarction without residual deficits; Z86.19 Personal history of other infectious and parasitic diseases; Z96.1 Presence of intraocular lens; Z79.899 Other long term (current) drug therapy; Z79.01 Long term (current) use of anticoagulants; Z79.82 Long term (current) use of aspirin; Z82.49 Family history of ischemic heart disease and other diseases of the circulatory system; Z83.3 Family history of diabetes mellitus; Z80.42 Family history of malignant neoplasm of prostate; Z82.0 Family history of epilepsy and other diseases of the nervous system; Z82.3 Family history of stroke; Z80.49 Family history of malignant neoplasm of other genital organs; Z83.511 Family history of glaucoma; Z83.518 Family history of other specified eye disorder; Z83.79 Family history of other diseases of the digestive system; Z84.89 Family history of other specified conditions
CPT/HCPCS: 99285; 36415; 95816; 93005; 80061; 80053; 84484; 85025; 85610; 85730; 83036; 71046; 70496; 70450; 70498; G0378 ×2; Q9967

== ENCOUNTER → 2022-01-18 | Outpatient (CLI) | payer MEDICARE ==
--- NOTE | 2022-01-18 16:04 | CT ---
EXAMINATION TYPE: CT abdomen pelvis wo con DATE OF EXAM: 01/18/2022 COMPARISON: 12/02/2019 HISTORY: flank pain, hematuria CT DLP: 334.7 mGycm Automated exposure control for dose reduction was used. TECHNIQUE: Helical acquisition of images was performed from the lung bases through the pelvis. FINDINGS: There are moderate chronic lung changes within the lung bases with interstitial fibrosis and scattere d areas of mild honeycombing in the subpleural parenchymal lung. There are surgical absence of the gallbladder. There is no organomegaly involving the solid visceral organs of the upper abdomen. There are no renal or ureteral calcifications no hydronephrosis. The caliber of the abdominal aorta is normal. The bowel loops are normal in caliber and there is no dilatation or obstruction. There is no free int raperitoneal air or fluid. Uterus appears bulky with scattered calcifications consistent with a fibroid uterus. The osseous structures are intact although there are marked degenerative changes in the lumbar spine. IMPRESSION: 1. Moderate chronic lung changes within the visualized lung bases. 2. Surgical absence of the gallbladder. 3. No renal calcifications or hydronephrosis. 4. No acute changes identified within the abdomen. 5. Bulky fibroid uterus with uterine calcifications.
== END | disposition home or self-care (01) ==
LOC: RADCTMAIN 15:31
PROVIDERS: ATTEND Urology
DX: D25.9 Leiomyoma of uterus, unspecified (principal); R91.8 Other nonspecific abnormal finding of lung field; Z90.49 Acquired absence of other specified parts of digestive tract
CPT/HCPCS: 74176

== ENCOUNTER → 2022-02-05 | Outpatient (CLI) | payer MEDICARE ==
[2022-02-05 08:54] VITALS: BP 114/70; PULSE 80; RESP 17; TEMP 97.9
--- NOTE | 2022-02-05 09:54 | P.HPOB ---
History of Present Illness H&P Date: 02/05/22 Chief Complaint: The patient is here for her routine gynecologic exam and ma mmogram. This is a 72-year-old G0 with an LMP of 2005. The patient is without gynecologic complaints and denies any postmenopausal bleeding. She has been experiencing dysuria for a few weeks. She was seen in [place] for flulike symptoms 1-2 months ago and she states the urine showed microscopic blood. When she will return to [place] 1 month ago, her PCP also checked a urine which showed blood but had a negative culture. She was referred to Dr. Roa, the urologist, who did a cystoscopy 4 days ago. Apparently this showed some mild inflammation. She continues to have dysuria without significant urinary frequency. She denies postmenopausal bleeding or vaginal discharge. Review of Systems The patient has gained 5 pounds over the last year. She denies respiratory, cardiac, or G.I. problems. : See HPI. Past Medical History Past Medical History: Atrial Fibrillation, GERD/Reflux, Hyperlipidemia, Rheumatoid Arthritis (RA) Additional Past Medical History / Comment(s): Compression fracture of L4 and L3 recently treated with kyphoplasty. Compression fracture L2 which is being treated conservatively compression fx L3-sx done. 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 History of Any Multi-Drug Resistant Organisms: None Reported Past Surgical History: Back Surgery, Cardiac Ablation, Orthopedic Surgery, Tonsillectomy Additional Past Surgical History / Comment(s): CATARATS LENS IMPLANTS, RT FOOT REMOVED 3 NODULES, right foot bone removed 05/18/18. Colonoscopy 2015(next after 5 years). Back surgery 07/15/2018 and 07/22/2018. Cardiac ablation surgery, epidural steroid injections for back pain, MITRAL VALVE REPLACEMENT. Story-Maze Afib procedure. Past Anesthesia/Blood Transfusion Reactions: No Reported Reaction Additional Past Anesthesia/Blood Transfusion Reaction / Comment(s): VERTIGO ON A CRUISE Past Psychological History: No Psychological Hx Reported Smoking Status: Former smoker Past Alcohol Use History: Occasional (7 per week) Additional Past Alcohol Use History / Comment(s): STARTED SMOKING AT AGE 19 TO AGE 29 SMOKED 1 PACK PER MONTH. Past Drug Use History: None Reported Additional History: The patient is retired and previously worked for [employer]. She has been with her female partner since 2010 and they live together. - Past Family History Father Family Medical History: Cancer, Neurologic Disorder Additional Family Medical History / Comment(s): Prostate cancer. ARRYTHMIA, CORNEAL IMPLANTS, LT EYE BLIND , PARKINSONS, FATHER HAS Mother Family Medical History: Cancer, Coronary Artery Disease (CAD), Diabetes Mellitus, Myocardial Infarction ([place]) Additional Family Medical History / Comment(s): Uterine cancer. CATARACTS, DE TATCHED RETINA, GLAUCOMA, MACULAR DEGENERATION, STENTS, BOWEL RESECTION FOR DIVERTICULITIS, KATINA KNEE REPLACEMENT. recently Brother(s) Family Medical History: CVA/TIA Additional Family Medical History / Comment(s): stroke at 65 Sister(s) Family Medical History: No Reported History Medications and Allergies Home Medications Medication Instructions Recorded Confirmed Type Pantoprazole Sodium [Protonix] 40 mg PO DAILY 06/29/14 05/29/21 History metHOTREXate sodium [Methotrexate] 12.5 mg PO MO 07/20/19 05/29/21 History Apixaban [Eliquis] 5 mg PO BID@0800,199911/28/19 05/29/21 History Folic Acid 1 mg PO DAILY 11/28/19 05/29/21 History Simponi 100 mg SQ Q56D 11/28/19 05/29/21 History Calcium Carbonate/Vitamin D3 2 tab PO DAILY 10/24/20 05/29/21 History [Calcium 500Mg-Vit D3 15 mcg (600 unit)] Metoprolol Succinate (ER) [Toprol 25 mg PO DAILY 10/24/20 05/29/21 History XL] Zinc 50 mg PO DAILY 10/24/20 05/29/21 History Apple Cider Vinegar 480 mg PO DAILY 05/29/21 05/29/21 History Cholecalciferol (Vitamin D3) 125 mcg PO DAILY 05/29/21 05/29/21 History [Vitamin D3 (125 MCG = 5,000 IU)] Garlic 1 tab PO DAILY 05/29/21 05/29/21 History Rosuvastatin [Crestor] 20 mg PO DAILY 05/29/21 05/29/21 History Aspirin EC [Ecotrin Low Dose] 81 mg PO DAILY #30 tab 05/30/21 Rx Elderberry Fruit and Flower [Black 1 cap PO DAILY 02/05/22 02/05/22 History Elderberry 575 mg Cap] Allergies Allergy/AdvReac Type Severity Reaction Status Date / Time No Known Allergies Allergy Verified 02/05/22 08:46 Exam Vital Signs Temp Pulse Resp BP Pulse Ox 02/05/22 08:50 97.9 F 80 17 114/70 98 Intake and Output 02/04/22 02/05/22 02/05/22 22:59 06:59 14:59 Other: Weight 65.317 kg Height 5 foot 1 inch, weight 144 pounds, BMI 27.2. This is a well-developed well-nourished white female who is alert and oriented times 3 in no acute distress. HEENT: Within normal limits. NECK: Supple without mass or thyromegaly. CHEST AND LUNGS: Clear to auscultation. HEART: Regular rate and rhythm. BREASTS: Are without mass or discharge. There is bilateral nipple inversion which the patient states has been like this her whole life. AXILLARY EXAM: Negative for adenopathy. BACK: Negative for CVA tenderness. ABDOMEN: Soft, with minimal suprapubic tenderness, without palpable masses. The rest of the abdomen is nontender. PELVIC EXAM: Normal external genitalia with moderate atrophy. Cervix and vagina appear normal with moderate atrophy. There is no unusual discharge. There is no evidence of prolapse. The uterus is midposition, nongravid size and nontender. There are no palpable adnexal masses or tenderness. RECTAL EXAM: Rectovaginal exam is negative for mass or tenderness and is neg ative for occult blood. EXTREMITIES: Nontender. IMPRESSION: 1. 72-year-old menopausal female with normal gynecologic exam. 2. Several week history of dysuria and microscopic hematuria status post cystoscopy with urologic evaluation by Dr. Roa. Differential diagnosis will include UTI, kidney stone, and interstitial cystitis. 3. 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 PLAN: 1. Pap smears have been discontinued. 2. Self breast awareness was discussed with the patient. We have also discussed symptoms associated with inflammatory breast cancer. 3. Screening mammogram will be done today. 4. Osteoporosis management was discussed. I have stressed the importance of adequate calcium, vitamin D, and regular exercise. We discussed various options for treatment of osteoporosis. She is declining bisphosphonates because of she concerns she has had. 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 We will plan on repeating bone density testing in 1 year since her last one was on 10/24/2020. 5. She has completed her Covid vaccination series and did receive 2 boosters. 6. Urine has been obtained for urinalysis and culture with sensitivity. We will consider treatment for UTI if evidence for it on the urinalysis. She states she has not been treated for a UTI during the past 3 months. She will continue to follow up with Dr. Roa for her microscopic hematuria. 7. She was advised to return in one year for her annual well woman exam and as needed.
[2022-02-06 01:47] LABS: Appearance,Urine Turbid (Clear); Bilirubin,Urine Negative (Negative); Blood,Urine Moderate (Negative); Color,Urine Yellow (Yellow); Ketones,Urine Trace mg/dL (Negative); Nitrite,Urine Positive (Negative); Specific Gravity,Urine 1.021 (1.001-1.030); Urobilinogen,Urine 0.2 (0.2,1.0)
[2022-02-06 01:48] LABS: Bacteria,Urine 3+ /HPF (None Seen)
--- NOTE | 2022-02-06 08:53 | MM ---
Reason for Exam: Screening (asymptomatic). Last mammogram was performed 1 year(s) and 3 month(s) ago. Patient History: Menarche at age 12. Patient has no children. Postmenopausal. 2016, Benign Excisional Biopsy on the left side. Risk Values: Fabby 5 year model risk: 2.3%. NCI Lifetime model risk: 5.7%. Film Views: Bilateral CC views were taken. Bilateral MLO views were taken. Prior Study Comparison: 06/16/2018 Bilateral Screening Mammogram, [facility]. 07/20/2019 Bilateral Screening Mammogram, [facility]. 10/24/2020 Bilateral Screening Mammogram, [facility]. Tissue Density: There are scattered fibroglandular densities. Findings: Analyzed By CAD. Benign calcifications are noted. There is no suspicious group of microcalcifications or new suspicious mass in either breast. Overall Assessment: Benign, BI-RAD 2 Management: Screening Mammogram of both breasts in 1 year. A clinical breast exam by your physician is recommended on an annual basis and results should be correlated with mammographic findings. Electronically signed and approved by: Les Lezama M.D. Radiologis
== END ==
LOC: WWCWWP 08:39
PROVIDERS: ATTEND Obstetrics & Gynecology
DX: Z12.31 Encounter for screening mammogram for malignant neoplasm of breast (principal); I48.91 Unspecified atrial fibrillation; K21.9 Gastro-esophageal reflux disease without esophagitis; E78.5 Hyperlipidemia, unspecified; M06.9 Rheumatoid arthritis, unspecified; Z87.891 Personal history of nicotine dependence; Z79.82 Long term (current) use of aspirin; Z79.899 Other long term (current) drug therapy; Z79.01 Long term (current) use of anticoagulants; Z87.39 Personal history of other diseases of the musculoskeletal system and connective tissue; Z87.448 Personal history of other diseases of urinary system; Z98.890 Other specified postprocedural states
CPT/HCPCS: 77063; 77067; 81001; 87086

== ENCOUNTER → 2022-12-10 | Outpatient (CLI) | payer MEDICARE ==
--- NOTE | 2022-12-10 10:45 | BD ---
EXAMINATION TYPE: Axial Bone Density DATE OF EXAM: 12/10/2022 CLINICAL HISTORY: 72 years old Female. 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 Height: 59in Weight: 150lb FRAX RISK QUESTIONS: Family History (Parent hip fracture): yes History of Fracture in Adulthood: yes Secondary Osteoporosis: Rheumatoid Arthritis: yes RISK FACTORS HISTORY OF: Spine Fracture: 9 compression fx's throughout spine When: 2004, 2017 Surgery to Spine yes When: 2017 Family History of Osteoporosis: yes Active: yes Postmenopausal woman: yes Lost more than 2 inches in height since high school: yes MEDICATIONS: Osteoporosis Medications: Which medication: none current How Long: Additional Medications: reflux med, cholesterol med, vitamin d, methotrexate, simponi infusion Additional History: EXAM MEASUREMENTS: Bone mineral densitometry was performed using the [employer] System. Bone mineral density about the R hip (g/cm2): 0.721 Bone mineral density about the L hip (g/cm2): 0.695 T Score values are as follows: -----R Neck: -1.4 -----L Neck: -1.8 -----R Total: -2.3 -----L Total: -2.5 Z Score values are as follows: -----R Neck: 0.4 -----L Neck: 0.0 -----R Total: -0.7 -----L Total: -0.9 Bone mineral density has: Decreased -3.8% since study of: 10-24-20 FRAX%s: The graph provided illustrates a 35.4% chance for a major osteoporotic fx and a 17.3% chance for the hips probability for fx in 10 years time. IMPRESSION: Osteoporosis (T Score less than -2.5). There is increased fracture risk and therapy is usually indicated based on age. Re-Screen 1-2 years. NOTE: T-SCORE=SD OF THE YOUNG ADULT MEAN.
== END | disposition home or self-care (01) ==
LOC: RADBDWWP 09:14
PROVIDERS: ATTEND Internal Medicine Geriatric Medicine
DX: M81.0 Age-related osteoporosis without current pathological fracture (principal)
CPT/HCPCS: 77080

== ENCOUNTER → 2023-03-12 | Outpatient (CLI) | payer MEDICARE ==
[2023-03-12 08:12] VITALS: BP 135/81; PULSE 74; RESP 16; TEMP 98.4
--- NOTE | 2023-03-12 09:10 | P.HPOB ---
History of Present Illness H&P Date: 03/12/23 Chief Complaint: The patient is here for her routine gynecologic exam and ma mmogram. This is a 73-year-old G0 with an LMP of 2005. The patient is without gynecologic complaints. She has not been taking medication for osteoporosis since she took Tymlos injections up to 2019. She recently had a bone density test done through her PCP on 12/10/2022 which showed osteoporosis. Review of Systems The patient has gained 8 pounds over the last year. She denies respiratory, cardiac, or G.I. problems. Past Medical History Past Medical History: Atrial Fibrillation, GERD/Reflux, Hyperlipidemia, Rheumatoid Arthritis (RA) Additional Past Medical History / Comment(s): Compression fracture of L4 and L3 recently treated with kyphoplasty. Compression fracture L2 which is being treated conservatively compression fx L3-sx done. 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 History of Any Multi-Drug Resistant Organisms: None Reported Past Surgical History: Back Surgery, Cardiac Ablation, Orthopedic Surgery, Tonsillectomy Additional Past Surgical History / Comment(s): CATARATS LENS IMPLANTS, RT FOOT REMOVED 3 NODULES, right foot bone removed 05/18/18. Colonoscopy 2016(next after 5 years). Back surgery 07/15/2018 and 07/22/2018. Cardiac ablation surgery, epidural steroid injections for back pain, MITRAL VALVE REPLACEMENT. Story-Maze Afib procedure. Past Anesthesia/Blood Transfusion Reactions: No Reported Reaction Additional Past Anesthesia/Blood Transfusion Reaction / Comment(s): VERTIGO ON A CRUISE Past Psychological History: No Psychological Hx Reported Smoking Status: Former smoker Past Alcohol Use History: Occasional (0-5 per week.) Additional Past Alcohol Use History / Comment(s): STARTED SMOKING AT AGE 19 TO AGE 29 SMOKED 1 PACK PER MONTH. Past Drug Use History: Marijuana (Rare use.) Additional Drug Use History / Comment(s): Very rare marijuana use. - Past Family History Father Family Medical History: Cancer, Neurologic Disorder Additional Family Medical History / Comment(s): Prostate cancer. ARRYTHMIA, CORNEAL IMPLANTS, LT EYE BLIND , PARKINSONS, FATHER HAS Mother Family Medical History: Cancer, Coronary Artery Disease (CAD), Diabetes Mellitus , Myocardial Infarction ([place]) Additional Family Medical History / Comment(s): Uterine cancer. CATARACTS, DETATCHED RETINA, GLAUCOMA, MACULAR DEGENERATION, STENTS, BOWEL RESECTION FOR DIVERTICULITIS, KATINA KNEE REPLACEMENT. recently Brother(s) Family Medical History: Cancer, CVA/TIA Additional Family Medical History / Comment(s): stroke at 65. A different brother had lung cancer. Sister(s) Family Medical History: No Reported History Medications and Allergies Home Medications Medication Instructions Recorded Confirmed Type Pantoprazole Sodium [Protonix] 40 mg PO DAILY 06/29/14 03/12/23 History metHOTREXate sodium [Methotrexate] 12.5 mg PO TU 07/20/19 03/12/23 History Apixaban [Eliquis] 5 mg PO BID@0800,199911/28/19 03/12/23 History Folic Acid 1 mg PO DAILY 11/28/19 03/12/23 History Metoprolol Succinate (ER) [Toprol 25 mg PO DAILY 10/24/20 03/12/23 History XL] Zinc 50 mg PO DAILY 10/24/20 03/12/23 History Cholecalciferol (Vitamin D3) 125 mcg PO DAILY 05/29/21 03/12/23 History [Vitamin D3 (125 MCG = 5,000 IU)] Rosuvastatin [Crestor] 20 mg PO DAILY 05/29/21 03/12/23 History Aspirin EC [Ecotrin Low Dose] 81 mg PO DAILY #30 tab 05/30/21 03/12/23 Rx Elderberry Fruit and Flower [Black 1 cap PO DAILY 02/05/22 03/12/23 History Elderberry 575 mg Cap] Albuterol Inhaler [Ventolin Hfa 2 puff INHALATION RT-Q6H PRN 10/20/22 03/12/23 History Inhaler] Ascorbic Acid [Vitamin C] 1,000 mg PO DAILY 10/20/22 03/12/23 History Cyanocobalamin (Vitamin B-12) 1,000 mcg PO DAILY 10/20/22 03/12/23 History [Vitamin B-12] Losartan Potassium [Cozaar] 25 mg PO DAILY 10/20/22 03/12/23 History Budesonide-Formot 160-4.5 Mcg 2 puff INHALATION BID #1 each 10/22/22 03/12/23 Rx [Symbicort 160-4.5 Mcg Inhaler] Allergies Allergy/AdvReac Type Severity Reaction Status Date / Time No Known Allergies Allergy Verified 03/12/23 08:06 Exam Vital Signs Temp Pulse Resp BP Pulse Ox 03/12/23 08:08 98.4 F 74 16 135/81 98 Intake and Output 03/11/23 03/12/23 03/12/23 22:59 06:59 14:59 Other: Weight 68.946 kg Height 5 feet 0 inches, weight 152 pounds, BMI 29.7. This is a well-developed well-nourished white female who is alert and oriented times 3 in no acute distress. HEENT: Within normal limits. NECK: Supple without mass or thyromegaly. CHEST AND LUNGS: Clear to auscultation. HEART: Regular rate and rhythm. BREASTS: Are without mass or discharge. AXILLARY EXAM: Negative for adenopathy. BACK: Negative for CVA tenderness. ABDOMEN: Soft, nontender, without palpable masses. PELVIC EXAM: Normal external genitalia with moderate atrophy. Cervix and vagina appear normal with moderate atrophy. There is no unusual discharge. There is no evidence of prolapse. The uterus is midposition, nongravid size and nontender. There are no palpable adnexal masses or tenderness. RECTAL EXAM: Rectovaginal exam is negative for mass or tenderness and is n egative for occult blood. EXTREMITIES: Nontender. IMPRESSION: 1. 73-year-old menopausal female with normal gynecologic exam. 2. History of osteoporosis status post 1 year use of Tymlos injections until 2019. PLAN: 1. Pap smears have been discontinued. 2. Self breast awareness was discussed with the patient. We have also discussed symptoms associated with inflammatory breast cancer. 3. Screening mammogram will be done today. 4. Osteoporosis management was discussed. I have stressed the importance of adequate calcium, vitamin D and regular exercise. Recommended amounts of calcium and vitamin D were also discussed. I have recommended using prescription medication for the osteoporosis to try to decrease the risk of bone fracture. We have discussed the nature of osteoporosis. We have discussed several types of medications that can be used for this including bisphosphonates, Prolia, injections, as well as calcitonin nasal sprays. We have discussed pros and cons of the different types of medications. We have had a detailed discussion of bisphosphonates including possible risks such as increased risk for esophageal ulceration as well as osteonecrosis of the jaw with jaw surgery or certain types of the dental procedures. Information on osteoporosis and alendronate was given to the patient. She would like to consider her options and would also like to discuss this with her PCP, Dr. Esteban. She can call me or discuss this with Dr. Esteban if she decides she wants to begin the medication. Her last bone density test was done at [facility] on 12/10/2022 as ordered by her PCP. 5. She was advised to return in one year for her annual well woman exam.
--- NOTE | 2023-03-13 08:23 | MM ---
Reason for Exam: Screening (asymptomatic). Last mammogram was performed 1 year(s) and 2 month(s) ago. Patient History: Menarche at age 12. Patient has no children. Postmenopausal. 2016, Benign Excisional Biopsy on the left side. Risk Values: Fabby 5 year model risk: 2.3%. NCI Lifetime model risk: 5.3%. Prior Study Comparison: 07/20/2019 Bilateral Screening Mammogram, [facility]. 10/24/2020 Bilateral Screening Mammogram, [facility]. 02/05/2022 Bilateral MG 3D screening mammo w/cad, [facility]. Tissue Density: There are scattered fibroglandular densities. Findings: Analyzed By CAD. There is no suspicious group of microcalcifications or new suspicious mass in either breast. Overall Assessment: Negative, BI-RAD 1 Management: Screening Mammogram of both breasts in [address] [facility] will attempt to contact patient to return for supplemental views and ultrasound if indicated. Patient should continue monthly self-breast exams. A clinical breast exam by your physician is recommended on an annual basis. This exam should not preclude additional follow-up of suspicious palpable abnormalities. Note on Fabby scores and lifetime risk: 1. A Fabby score greater than 3% is considered moderate risk. If this is the case, consider specialist referral to assess eligibility for a risk reducing agent. 2. If overall lifetime risk for the development of breast cancer is 20% or higher, the patient may qualify for future screening with alternating mammogram and breast MRI. Electronically signed and approved by: Kris Morales DO
== END ==
LOC: WWCWWP 07:58
PROVIDERS: ATTEND Obstetrics & Gynecology
DX: Z12.31 Encounter for screening mammogram for malignant neoplasm of breast (principal); Z01.411 Encounter for gynecological examination (general) (routine) with abnormal findings; I48.91 Unspecified atrial fibrillation; M06.9 Rheumatoid arthritis, unspecified; E78.5 Hyperlipidemia, unspecified; K21.9 Gastro-esophageal reflux disease without esophagitis; M81.0 Age-related osteoporosis without current pathological fracture; Z87.891 Personal history of nicotine dependence
CPT/HCPCS: 77063; 77067

== ENCOUNTER → 2023-05-05 | Outpatient (CLI) | payer MEDICARE ==
[2023-05-05 10:53] LABS: Partial Thromboplastin Time 24.5 sec (22.0-30.0); Prothrombin Time 10.7 sec (9.0-12.0)
[2023-05-05 15:42] LABS: Basophils # (A) 0.05 X 10*3/uL (0.00-0.10); Basophils % (A) 0.8 %; Eosinophils # (A) 0.51 X 10*3/uL (0.04-0.35); Eosinophils % (A) 8.6 %; HCT 34.4 % (37.2-46.3); HGB 10.9 d/dL (12.0-15.0); Lymphocytes # (A) 1.48 X 10*3/uL (0.90-5.00); Lymphocytes % (A) 24.9 %; MCH 30.5 pg (27.0-32.0); MCHC 31.7 d/dL (32.0-37.0); MCV 96.4 FL (80.0-97.0); Monocytes # (A) 0.55 X 10*3/uL (0.20-1.00); Monocytes % (A) 9.3 %; NRBC Per 100 WBC 0 X 10*3/uL (0.00-0.01); Neutrophils # (A) 3.32 X 10*3/uL (1.80-7.70); Neutrophils % (A) 55.9 %; Platelet Count 183 X 10*3/uL (140-440); RBC 3.57 X 10*6/uL (4.10-5.20); RDW 14.6 % (11.5-14.5); WBC 5.94 X 10*3/uL (4.50-10.00)
[2023-05-05 15:50] LABS: ALT 23 U/L (8-44); AST 33 U/L (13-35); Albumin 4.6 d/dL (3.8-4.9); Albumin/Globulin Ratio 1.59 Ratio (1.60-3.17); Alkaline Phosphatase 79 U/L (41-126); BUN/Creat Ratio 16.25 Ratio (12.00-20.00); Calcium 9.5 mg/dL (8.7-10.3); Carbon Dioxide 24.7 mmol/L (21.6-31.8); Chloride 106 mmol/L (96-109); Globulin 2.9 d/dL (1.6-3.3); Glucose 103 mg/dL (70-110); Potassium 4.2 mmol/L (3.5-5.5); Sodium 140 mmol/L (135-145); Total Bilirubin 0.6 mg/dL (0.3-1.2); Total Protein 7.5 d/dL (6.2-8.2)
[2023-05-05 16:33] LABS: Appearance,Urine Clear (Clear); Bilirubin,Urine Negative (Negative); Blood,Urine Negative (Negative); Color,Urine Yellow (Yellow); Ketones,Urine Negative (Negative); Nitrite,Urine Negative (Negative); Specific Gravity,Urine 1.015 (1.001-1.030); Urobilinogen,Urine 0.2 E.U./DL
[2023-05-05 16:39] LABS: Bacteria,Urine None Seen (None Seen)
== END | disposition home or self-care (01) ==
LOC: LABPAT 09:44
PROVIDERS: ATTEND Orthopaedic Surgery
DX: Z01.812 Encounter for preprocedural laboratory examination (principal); M16.11 Unilateral primary osteoarthritis, right hip
CPT/HCPCS: 80053; 81001; 85025; 85610; 85730; 87070

== ENCOUNTER 2023-07-24 13:33 | Observation (INO) | payer MEDICARE ==
[2023-07-24 14:44] LABS: Basophils % (A) 0 %; Eosinophils # (A) 0.4 k/uL (0-0.7); Eosinophils % (A) 7 %; HCT 32.3 % (34.0-46.0); HGB 10.7 gm/dL (11.4-16.0); Lymphocytes # (A) 1.4 k/uL (1.0-4.8); Lymphocytes % (A) 24 %; MCH 30.3 pg (25.0-35.0); MCHC 33.2 g/dL (31.0-37.0); MCV 91.3 fL (80.0-100.0); Mean Platelet Volume 8.8; Monocytes # (A) 0.4 k/uL (0-1.0); Monocytes % (A) 7 %; Neutrophils # (A) 3.5 k/uL (1.3-7.7); Neutrophils % (A) 59 %; Platelet Count 168 k/uL (150-450); RBC 3.54 m/uL (3.80-5.40); RDW 14.9 % (11.5-15.5); WBC 5.9 k/uL (3.8-10.6)
--- NOTE | 2023-07-24 14:44 | ED ---
General Adult HPI - General Chief complaint: Dizziness Stated complaint: Dizziness Time Seen by Provider: 07/24/23 14:29 Source: patient, family, EMS, RN notes reviewed Mode of arrival: EMS Limitations: no limitations - History of Present Illness Initial comments: Patient is a pleasant 73-year-old female presenting to the emergency department with concerns regarding difficulty talking. Episode occurred prior to arrival. Episode lasted 2-5 minutes and then resolved. Patient did have a little bit of lightheadedness. Patient had difficulty finding her words. Patient also states her right arm seemed heavy. That has also resolved. No history of similar symptoms previously. - Related Data Home Medications Medication Instructions Recorded Confirmed Pantoprazole Sodium [Protonix] 40 mg PO DAILY 06/29/14 05/07/23 metHOTREXate sodium 12.5 mg PO TU 07/20/19 05/07/23 Apixaban [Eliquis] 5 mg PO BID@0800,199911/28/19 05/13/23 Folic Acid 1 mg PO DAILY 11/28/19 05/07/23 Metoprolol Succinate (ER) [Toprol 25 mg PO DAILY 10/24/20 05/07/23 XL] Zinc 50 mg PO DAILY 10/24/20 05/07/23 Cholecalciferol (Vitamin D3) 125 mcg PO DAILY 05/29/21 05/07/23 [Vitamin D3 (125 MCG = 5,000 IU)] Rosuvastatin [Crestor] 20 mg PO DAILY 05/29/21 05/07/23 Elderberry Fruit and Flower [Black 1 cap PO DAILY 02/05/22 05/07/23 Elderberry 575 mg Cap] Albuterol Inhaler [Ventolin Hfa 2 puff INHALATION RT-Q6H PRN 10/20/22 05/13/23 Inhaler] Ascorbic Acid [Vitamin C] 1,000 mg PO DAILY 10/20/22 05/07/23 Cyanocobalamin (Vitamin B-12) 1,000 mcg PO DAILY 10/20/22 05/07/23 [Vitamin B-12] Losartan Potassium [Cozaar] 25 mg PO DAILY 10/20/22 05/07/23 Simponi IV Q60D 05/07/23 Previous Rx's Medication Instructions Recorded Aspirin EC [Ecotrin Low Dose] 81 mg PO DAILY #30 tab 05/30/21 Allergies Allergy/AdvReac Type Severity Reaction Status Date / Time No Known Allergies Allergy Verified 07/24/23 13:44 Review of Systems ROS Statement: Those systems with pertinent positive or pertinent negative responses have been documented in the HPI. ROS Other: All systems not noted in ROS Statement are negative. Constitutional: Denies: fever Eyes: Denies: eye pain ENT: Denies: ear pain Respiratory: Denies: cough Cardiovascular: Denies: chest pain Endocrine: Denies: fatigue Gastrointestinal: Denies: abdominal pain Genitourinary: Denies: dysuria Neurological: Reports: as per HPI, confusion. Denies: headache Past Medical History Past Medical History: Atrial Fibrillation, GERD/Reflux, Hyperlipidemia, Osteoarthritis (OA), Rheumatoid Arthritis (RA) Additional Past Medical History / Comment(s): Compression fracture of L4 and L3 recently treated with kyphoplasty. Compression fracture L2 which is being treated conservatively compression fx L3-sx done. 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 History of Any Multi-Drug Resistant Organisms: None Reported Past Surgical History: Back Surgery, Cardiac Ablation, Orthopedic Surgery, Tonsillectomy Additional Past Surgical History / Comment(s): CATARATS LENS IMPLANTS, RT FOOT REMOVED 3 NODULES, right foot bone removed 05/18/18. Colonoscopy 2016(next after 5 years). kyphoplasty x2. Cardiac ablation surgery x2, epidural steroid injections for back pain, MITRAL VALVE REPLACEMENT. Story-Maze Afib procedure. November 2019, pain stimulator in back, right shoulder rotator cuff repair Past Anesthesia/Blood Transfusion Reactions: No Reported Reaction Additional Past Anesthesia/Blood Transfusion Reaction / Comment(s): VERTIGO ON A CRUISE Past Psychological History: No Psychological Hx Reported Smoking Status: Former smoker Past Alcohol Use History: Occasional - Past Family History Father Family Medical History: Cancer, Neurologic Disorder Additional Family Medical History / Comment(s): Prostate cancer. ARRYTHMIA, CORNEAL IMPLANTS, LT EYE BLIND , PARKINSONS, FATHER HAS Mother Family Medical History: Cancer, Coronary Artery Disease (CAD), Diabetes Mellitus, Myocardial Infarction ([place]) Additional Family Medical History / Comment(s): Uterine cancer. CATARACTS, DETATCHED RETINA, GLAUCOMA, MACULAR DEGENERATION, STENTS, BOWEL RESECTION FOR DIVERTICULITIS, KATINA KNEE REPLACEMENT. recently Brother(s) Family Medical History: Cancer, CVA/TIA Additional Family Medical History / Comment(s): stroke at 65. A different brother had lung cancer. Sister(s) Family Medical History: No Reported History General Exam Limitations: no limitations General appearance: alert, in no apparent distress Head exam: Present: normocephalic Eye exam: Present: normal appearance, PERRL, EOMI. Absent: nystagmus ENT exam: Present: normal oropharynx Neck exam: Present: normal inspection Respiratory exam: Present: normal lung sounds bilaterally Cardiovascular Exam: Present: regular rate, normal rhythm GI/Abdominal exam: Present: soft. Absent: tenderness Extremities exam: Present: normal inspection Neurological exam: Present: alert, oriented X3, CN II-XII intact. Absent: motor sensory deficit Expanded Neurological exam: Present: protecting the airway Patient oriented to: Present: person, place, time Speech: Present: fluid speech Cranial nerves: EOM's Intact: Normal Sensory exam: Upper Extremity Light Touch: Normal, Lower Extremity Light Touch: Normal Motor strength exam: RUE: 5, LUE: 5, RLE: 5, LLE: 5 Eye Response: (4) open spontaneously Motor Response: (6) obeys commands Verbal Response: (5) oriented Psychiatric exam: Present: normal affect, normal mood Skin exam: Present: normal color Course Vital Signs 07/24/23 07/24/23 13:37 15:21 Temperature 98.1 F Pulse Rate 81 76 Respiratory 20 18 Rate Blood Pressure 139/73 122/75 O2 Sat by Pulse 97 98 Oximetry EKG Findings - EKG Results: EKG: interpreted by ERMD (Right bundle-branch block), sinus rhythm, normal axis, normal ST/T Medical Decision Making - Medical Decision Making Was pt. sent in by a medical professional or institution (ANTHONY [facility]ura, LICENSE AND PERMIT SPECIALIST, urgent care, hospital, or alf...) When possible be specific @ -No Did you speak to anyone other than the patient for history (EMS, parent, family, police, friend...)? What history was obtained from this source @ -Family is present and helps provide history including duration of symptoms Did you review nursing and triage notes (agree or disagree)? Why? @ -I reviewed and agree with nursing and triage notes Were old charts reviewed (outside hosp., previous admission, EMS record, old EKG, old radiological studies, urgent care reports/EKG's, alf records)? Report findings @ -No old charts were reviewed Differential Diagnosis (chest pain, altered mental status, abdominal pain women, abdominal pain men, vaginal bleeding, weakness, fever, dyspnea, syncope, he adache, dizziness, GI bleed, back pain, seizure, CVA, palpatations, mental health, musculoskeletal)? @ -Differential Altered Mental Status: Hypoglycemia, DKA, hypercapnia, ETOH, overdose, CO poisoning, trauma, myxedema coma, HTN encephalopathy, infection, encephalitis, psychosis, intercranial hemorrhage, hepatic encephalopathy, meningitis, CVA, this is not meant to be an all-inclusive list EKG interpreted by me (3pts min.). @ -As above X-rays interpreted by me (1pt min.). @ - CT interpreted by me (1pt min.). @ -CT brain does not reveal large mass or hemorrhage U/S interpreted by me (1pt. min.). @ -None done What testing was considered but not performed or refused? (CT, X-rays, U/S, labs)? Why? @ -None What meds were considered but not given or refused? Why? @ -None Did you discuss the management of the patient with other professionals (professionals i.e. , PA, LICENSE AND PERMIT SPECIALIST, lab, RT, psych nurse, adoption social worker, sports equipment racker, teacher, sheriff officer, case management coordinator)? Give summary @ -Case was discussed with practitioner Kelly Argueta, who will admit covering for Dr. Esteban. Was smoking cessation discussed for >3mins.? @ -No Was critical care preformed (if so, how long)? @ -No Were there social determinants of health that impacted care today? How? (Homelessness, low income, unemployed, alcoholism, drug addiction, tr ansportation, low edu. Level, literacy, decrease access to med. care, correction, rehab)? @ -No Was there de-escalation of care discussed even if they declined (Discuss DNR or withdrawal of care, Hospice)? DNR status @ -No What co-morbidities impacted this encounter? (DM, HTN, Smoking, COPD, CAD, Cancer, CVA, ARF, Chemo, Hep., AIDS, mental health diagnosis, sleep apnea, morbid obesity)? @ -None Was patient admitted / discharged? Hospital course, mention meds given and route, prescriptions, significant lab abnormalities, going to OR and other pertinent info. @ -Patient is not a TPA candidate secondary to risks outweigh the benefits. Patient had resolution of symptoms. Patient reevaluated and still remained symptom-free. Patient and family are updated on results and plan. Patient will be admitted. Orders written. Neurology will be placed on consult. Undiagnosed new problem with uncertain prognosis? @ -No Drug Therapy requiring intensive monitoring for toxicity (Heparin, Nitro, Insulin, Cardizem)? @ -No Were any procedures done? @ -No Diagnosis/symptom? @ -tia Acute, or Chronic, or Acute on Chronic? @ -Acute Uncomplicated (without systemic symptoms) or Complicated (systemic symptoms)? @ -default Side effects of treatment? @ -No Exacerbation, Progression, or Severe Exacerbation? @ -No Poses a threat to life or bodily function? How? (Chest pain, [place], [place], pneumonia, PE, COPD, DKA, ARF, appy, cholecystitis, CVA, Diverticulitis, Homicidal, Suicidal, threat to staff... and all critical care pts) @ -No - Lab Data Result diagrams: 07/24/23 14:27 07/24/23 14:27 Lab Results 07/24/23 07/24/23 07/24/23 Range/Units 14:27 14:27 14:27 WBC 5.9 (3.8-10.6) k/uL RBC 3.54 L (3.80-5.40) m/uL Hgb 10.7 L (11.4-16.0) gm/dL Hct 32.3 L (34.0-46.0) % MCV 91.3 (80.0-100.0) fL MCH 30.3 (25.0-35.0) pg MCHC 33.2 (31.0-37.0) g/dL RDW 14.9 (11.5-15.5) % Plt Count 168 (150-450) k/uL MPV 8.8 Neutrophils % 59 % Lymphocytes % 24 % Monocytes % 7 % Eosinophils % 7 % Basophils % 0 % Neutrophils # 3.5 (1.3-7.7) k/uL Lymphocytes # 1.4 (1.0-4.8) k/uL Monocytes # 0.4 (0-1.0) k/uL Eosinophils # 0.4 (0-0.7) k/uL Basophils # 0.0 (0-0.2) k/uL PT 11.4 (10.0-12.5) sec INR 1.1 (<1.2) APTT 22.7 (22.0-30.0) sec Sodium 141 (137-145) mmol/L Potassium 3.8 (3.5-5.1) mmol/L Chloride 110 H (98-107) mmol/L Carbon Dioxide 23 (22-30) mmol/L Anion Gap 8 mmol/L BUN 9 (7-17) mg/dL Creatinine 0.66 (0.52-1.04) mg/dL Est GFR (CKD-EPI)AfAm >90 (>60 ml/min/1.73 sqM) Est GFR (CKD-EPI)NonAf 87 (>60 ml/min/1.73 sqM) Glucose 91 (74-99) mg/dL Calcium 9.0 (8.4-10.2) mg/dL Total Bilirubin 0.5 (0.2-1.3) mg/dL AST 32 (14-36) U/L ALT 18 (4-34) U/L Alkaline Phosphatase 92 (38-126) U/L Troponin I (0.000-0.034) ng/mL Total Protein 7.1 (6.3-8.2) g/dL Albumin 3.8 (3.5-5.0) g/dL 07/24/23 Range/Units 14:27 WBC (3.8-10.6) k/uL RBC (3.80-5.40) m/uL Hgb (11.4-16.0) gm/dL Hct (34.0-46.0) % MCV (80.0-100.0) fL MCH (25.0-35.0) pg MCHC (31.0-37.0) g/dL RDW (11.5-15.5) % Plt Count (150-450) k/uL MPV Neutrophils % % Lymphocytes % % Monocytes % % Eosinophils % % Basophils % % Neutrophils # (1.3-7.7) k/uL Lymphocytes # (1.0-4.8) k/uL Monocytes # (0-1.0) k/uL Eosinophils # (0-0.7) k/uL Basophils # (0-0.2) k/uL PT (10.0-12.5) sec INR (<1.2) APTT (22.0-30.0) sec Sodium (137-145) mmol/L Potassium (3.5-5.1) mmol/L Chloride (98-107) mmol/L Carbon Dioxide (22-30) mmol/L Anion Gap mmol/L BUN (7-17) mg/dL Creatinine (0.52-1.04) mg/dL Est GFR (CKD-EPI)AfAm (>60 ml/min/1.73 sqM) Est GFR (CKD-EPI)NonAf (>60 ml/min/1.73 sqM) Glucose (74-99) mg/dL Calcium (8.4-10.2) mg/dL Total Bilirubin (0.2-1.3) mg/dL AST (14-36) U/L ALT (4-34) U/L Alkaline Phosphatase (38-126) U/L Troponin I <0.012 (0.000-0.034) ng/mL Total Protein (6.3-8.2) g/dL Albumin (3.5-5.0) g/dL Disposition Clinical Impression: Transient cerebral ischemia Disposition: ADMITTED IP TO THIS HOSP Is patient prescribed a controlled substance at d/c from ED?: No Referrals: Les Esteban MD [Primary Care Provider] - 1-2 days Time of Disposition: 16:48
[2023-07-24 14:53] LABS: INR 1.1 (<1.2); Partial Thromboplastin Time 22.7 sec (22.0-30.0); Prothrombin Time 11.4 sec (10.0-12.5)
[2023-07-24 15:03] LABS: ALT 18 U/L (4-34); AST 32 U/L (14-36); African American GFR (CKD) >90 (>60 ml/min/1.73 sqM); Albumin 3.8 g/dL (3.5-5.0); Alkaline Phosphatase 92 U/L (38-126); Anion Gap 8 mmol/L; Blood Urea Nitrogen 9 mg/dL (7-17); Carbon Dioxide 23 mmol/L (22-30); Chloride 110 mmol/L (98-107); Glucose 91 mg/dL (74-99); Non-African American GFR(CKD) 87 (>60 ml/min/1.73 sqM); Potassium 3.8 mmol/L (3.5-5.1); Sodium 141 mmol/L (137-145); Total Bilirubin 0.5 mg/dL (0.2-1.3); Total Protein 7.1 g/dL (6.3-8.2)
--- NOTE | 2023-07-24 16:00 | CT ---
EXAMINATION TYPE: CT brain wo con DATE OF EXAM: 07/24/2023 COMPARISON: 05/29/2021 HISTORY: Dizziness CT DLP: [address] of the brain was performed. The ventricles, basal cisterns and sulci overlying the cerebral convexities demonstrate mild enlargem ent. There is no evidence for intracranial hemorrhage or sulcal effacement. There is decreased attenuation about the periventricular white matter and deep white matter of both c erebral hemispheres, compatible with chronic small vessel ischemia. Differential diagnosis does inclu de demyelination. No mass effects are seen.No midline shift. Osseous calvarium is intact. If symptoms persist consider MRI. IMPRESSION: 1. Age related atrophic and chronic small vessel ischemic change without acute intracranial process s een at this time.
--- NOTE | 2023-07-24 16:17 | CT ---
EXAMINATION TYPE: CT angio head neck DATE OF EXAM: 07/24/2023 COMPARISON: None HISTORY: dizziness CT DLP: 337.1 mGycm CONTRAST: Performed with IV Contrast, patient injected with 65 mL of Isovue 370. Combination Contrast CTA cervical carotids and [place] CTA cervical carotids with 3-D recons truction Contrast CTA of the cervical carotids was performed 3-D reconstruction imaging obtained at a separate workstation. Right carotid system: Mild plaque is seen of the right common carotid artery. There is mild plaque a lso noted at the carotid bulb and proximal ICA. No significant diameter reduction. ECA is patent. Right vertebral artery appears unremarkable. Left carotid system: Mild plaque is seen of the left common carotid artery. There is mild plaque als o noted at the carotid bulb and proximal ICA. No significant diameter reduction. ECA is patent. Lef t vertebral artery appears unremarkable. IMPRESSION: 1. No significant diameter reduction to account for the patient's symptoms. CTA [place] with 3-D reconstruction Contrast CTA of the [place] was performed 3-D reconstruction imaging obtained at a separate workstation. Vertebrobasilar system as well as intracranial portions of the internal carotid arteries and their ma marlon tributaries are patent. I do not see evidence for sizable aneurysm or vascular malformation. Pl ease note MRI provides greater sensitivity and specificity. Visualized brain appears grossly unremar kable. IMPRESSION: 1. No significant abnormality. NASCET criteria was used in interpretation of this exam?
[2023-07-24] MEDS ORDERED: ASPIRIN 325 MG TAB PO STA (16:48)
[2023-07-24] MEDS: SODIUM CHLORIDE 0.9% 1,000 ML IV SCH (17:08)
[2023-07-24] MEDS ORDERED: ALBUTEROL NEBULIZED 2.5 MG/3 ML INHALATION PRN (21:28)
[2023-07-24] MEDS: APIXABAN 5 MG TAB PO SCH (21:50)
[2023-07-24] MEDS: LOSARTAN 25 MG TAB PO SCH (21:50)
[2023-07-25 04:05] VITALS: RESP 16
[2023-07-25] MEDS: SODIUM CHLORIDE 0.9% 1,000 ML IV SCH ×2 (06:05→11:19)
--- NOTE | 2023-07-25 07:02 | P.HPIM ---
History of Present Illness This is a pleasant 73 years old female with past medical history of atrial fibrillation on eliquis, hepatitis B, history of the venous thrombosis, mitral valve replacement, rheumatoid arthritis on methotrexate, osteoarthritis, GERD, hyperlipidemia, compression fracture Patient states that she has transient period of difficulty finding words that is lasted for about 8 minutes associated with some numbness in the lips and was right arm heaviness. This all resolved and now patient is back to baseline. She denies any chest pain or dyspnea no abdominal pain vomiting diarrhea, no urinary complaints. No fever. Patient describes periods which she said ocular migraine and wished to become blurred vision attacks for 20 minutes has been happening for years and she follow up with jig and fixture repairer Dr. Forrest. She denies smoking or illicit starts about she drinks beer socially. Per neurologist Dr. Saucedo and retail clerk Dr. Gamez Patient hemodynamically stable Labs are stable except for mild leukocytosis 10.7. EKG showed normal sinus rhythm at 74 with first degree heart block CTA of the chest is negative for pulmonary embolism CT of the brain is negative for acute process. Review of Systems Review of systems CONSTITUTIONAL: No fever, no malaise, no fatigue. HEENT: No recent visual problems or hearing problems. Denied any sore throat. CARDIOVASCULAR: No orthopnea, PND, no palpitations, no syncope. PULMONARY: No shortness of breath, no cough, no hemoptysis. GASTROINTESTINAL: No diarrhea, no nausea, no vomiting, no abdominal pain. Normoactive bowel sounds. NEUROLOGICAL: No headaches, no weakness, no numbness. HEMATOLOGICAL: Denies any bleeding or petechiae. GENITOURINARY: Denies any burning micturition, frequency, or urgency. MUSCULOSKELETAL/RHEUMATOLOGICAL: Denies any joint pain, swelling, or any muscle pain. ENDOCRINE: Denies any polyuria or polydipsia. Past Medical History Past Medical History: Atrial Fibrillation, GERD/Reflux, Hyperlipidemia, Osteoarthritis (OA), Rheumatoid Arthritis (RA) Additional Past Medical History / Comment(s): Compression fracture of L4 and L3 recently treated with kyphoplasty. Compression fracture L2 which is being treated conservatively compression fx L3-sx done. 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 History of Any Multi-Drug Resistant Organisms: None Reported Past Surgical History: Back Surgery, Cardiac Ablation, Orthopedic Surgery, Tonsillectomy Additional Past Surgical History / Comment(s): CATARATS LENS IMPLANTS, RT FOOT REMOVED 3 NODULES, right foot bone removed 9/10/18. Colonoscopy 2016(next after 5 years). kyphoplasty x2. Cardiac ablation surgery x2, epidural steroid i njections for back pain, MITRAL VALVE REPLACEMENT. Story-Maze Afib procedure. November 2019, pain stimulator in back, right shoulder rotator cuff repair, hip replacement Past Anesthesia/Blood Transfusion Reactions: No Reported Reaction Additional Past Anesthesia/Blood Transfusion Reaction / Comment(s): . Past Psychological History: No Psychological Hx Reported Smoking Status: Former smoker Past Alcohol Use History: Occasional Additional Past Alcohol Use History / Comment(s): STARTED SMOKING AT AGE 19 TO AGE 29 SMOKED 1 PACK PER MONTH. Past Drug Use History: Marijuana Additional Drug Use History / Comment(s): Very rare marijuana use. - Past Family History Father Family Medical History: Cancer, Neurologic Disorder Additional Family Medical History / Comment(s): Prostate cancer. ARRYTHMIA, CORNEAL IMPLANTS, LT EYE BLIND , PARKINSONS, FATHER HAS Mother Family Medical History: Cancer, Coronary Artery Disease (CAD), Diabetes Mellitus, Myocardial Infarction ([place]) Additional Family Medical History / Comment(s): Uterine cancer. CATARACTS, DETATCHED RETINA, GLAUCOMA, MACULAR DEGENERATION, STENTS, BOWEL RESECTION FOR DIVERTICULITIS, KATINA KNEE REPLACEMENT. recently Brother(s) Family Medical History: Cancer, CVA/TIA Additional Family Medical History / Comment(s): stroke at 65. A different brother had lung cancer. Sister(s) Family Medical History: No Reported History Medications and Allergies Home Medications Medication Instructions Recorded Confirmed Type Pantoprazole Sodium [Protonix] 40 mg PO DAILY 06/29/14 07/24/23 History metHOTREXate sodium 12.5 mg PO TU 07/20/19 07/24/23 History Apixaban [Eliquis] 5 mg PO BID 11/28/19 07/24/23 History Folic Acid 1 mg PO DAILY 11/28/19 07/24/23 History Metoprolol Succinate (ER) [Toprol 25 mg PO DAILY 10/24/20 07/24/23 History XL] Zinc 50 mg PO DAILY 10/24/20 07/24/23 History Cholecalciferol (Vitamin D3) 125 mcg PO DAILY 05/29/21 07/24/23 History [Vitamin D3 (125 MCG = 5,000 IU)] Rosuvastatin [Crestor] 20 mg PO DAILY 05/29/21 07/24/23 History Aspirin EC [Ecotrin Low Dose] 81 mg PO DAILY #30 tab 05/30/21 07/24/23 Rx Elderberry Fruit and Flower [Black 1 cap PO DAILY 02/05/22 07/24/23 History Elderberry 575 mg Cap] Albuterol Inhaler [Ventolin Hfa 2 puff INHALATION RT-Q6H PRN 10/20/22 07/24/23 History Inhaler] Ascorbic Acid [Vitamin C] 1,000 mg PO DAILY 10/20/22 07/24/23 History Cyanocobalamin (Vitamin B-12) 1,000 mcg PO DAILY 10/20/22 07/24/23 History [Vitamin B-12] Losartan Potassium [Cozaar] 25 mg PO DAILY 10/20/22 07/24/23 History Simponi 1 dose IV Q60D 05/07/23 07/24/23 History Allergies Allergy/AdvReac Type Severity Reaction Status Date / Time No Known Allergies Allergy Verified 07/24/23 18:05 Physical Exam Vitals: Vital Signs Temp Pulse Pulse Resp BP BP Pulse Ox 07/25/23 03:48 98.6 F 82 16 119/73 96 07/24/23 23:50 97.6 F 90 18 100/64 96 07/24/23 20:44 72 16 152/81 98 07/24/23 20:11 97.3 F L 77 18 143/75 94 L 07/24/23 19:00 16 148/80 07/24/23 17:00 80 18 128/88 97 07/24/23 15:21 76 18 122/75 98 07/24/23 13:37 98.1 F 81 20 139/73 97 Intake and Output 07/24/23 07/24/23 07/25/23 14:59 22:59 06:59 Other: Voiding Method Toilet Toilet # Voids 1 Weight 66.678 kg 66.678 kg GENERAL: The patient is alert and oriented x3, not in any acute distress. Well developed, well nourished. HEENT: Pupils are round and equally reacting to light. EOMI. No scleral icterus. No conjunctival pallor. Normocephalic, atraumatic. No pharyngeal erythema. No thyromegaly. CARDIOVASCULAR: S1 and S2 present. No murmurs, rubs, or gallops. PULMONARY: Chest is clear to auscultation, no wheezing , no crackles. ABDOMEN: Soft, nontender, nondistended, normoactive bowel sounds. No palpable organomegaly. MUSCULOSKELETAL: No joint swelling or deformity. EXTREMITIES: No cyanosis, clubbing, or pedal edema. NEUROLOGICAL: Gross neurological examination did not reveal any focal deficits. SKIN: No rashes. no petechiae. Results CBC & Chem 7: 07/24/23 14:27 07/24/23 14:27 Labs: Abnormal Lab Results - Last 24 Hours (Table) 07/24/23 07/24/23 Range/Units 14:27 14: RBC 3.54 L (3.80-5.40) m/uL Hgb 10.7 L (11.4-16.0) gm/dL Hct 32.3 L (34.0-46.0) % Chloride 110 H (98-107) mmol/L Thrombosis Risk Factor Assmnt - Choose All That Apply Any of the Below Risk Factors Present?: Yes Each Factor Represents 1 point: Obesity (BMI >25) Other Risk Factors: Yes Each Risk Factor Represents 2 Points: Age 61-74 years Thrombosis Risk Factor Assessment Total Risk Factor Score: 3 Thrombosis Risk Factor Assessment Level: Moderate Risk Assessment and Plan Assessment: Transient ischemic attack with transient expressive aphasia and right upper extremity weakness History of atrial fibrillation on liquids History of mitral valve replacement History of GERD Hyperlipidemia History of compression fracture History of the venous thrombosis History of hepatitis B Plan: continue with aspirin 325 mg Continue with Eliquis Follow-up echocardiogram Neurology consult Labs and medication were reviewed.. Continue same treatment. Continue with symptomatic treatment. Resume home medication. Monitor labs and vitals. DVT and GI prophylaxis. Further recommendations as per clinical course of the pat ient DVT prophylaxis: Eliquis GI Prophylaxis: Pepcid Prognosis is guarded
[2023-07-25] MEDS ORDERED: PANTOPRAZOLE 40 MG TABLET PO SCH (07:30)
[2023-07-25 08:50] LABS: Chol/HDL Ratio 2.87 Ratio; LDL Cholesterol,Calculated 72.1 mg/dL (0.0-131.0)
[2023-07-25] MEDS ORDERED: NON FORMULARY DRUG (Elderberry Fruit And Flower [Black Elderberry 575 Mg Cap] 1 EACH Capsu PO SCH (09:00)
[2023-07-25] MEDS ORDERED: ZINC SULFATE 220 MG CAP PO SCH (09:00)
[2023-07-25] MEDS ORDERED: CHOLECALCIFEROL 125 MCG (5000 IU) TABLET PO SCH (09:00)
[2023-07-25] MEDS ORDERED: ATORVASTATIN 40 MG TAB PO SCH (09:00)
[2023-07-25] MEDS ORDERED: FOLIC ACID 1 MG TAB PO SCH (09:00)
[2023-07-25] MEDS ORDERED: FAMOTIDINE 20 MG/2 ML VIAL IV SCH (09:00)
[2023-07-25] MEDS ORDERED: METOPROLOL SUCCINATE (ER) 25 MG TAB.ER.24H PO SCH (09:00)
[2023-07-25] MEDS ORDERED: CYANOCOBALAMIN 500 MCG TAB PO SCH (09:00)
[2023-07-25] MEDS ORDERED: ASCORBIC ACID 500 MG TAB PO SCH (09:00)
[2023-07-25] MEDS ORDERED: ASPIRIN 325 MG TAB PO SCH (09:00)
[2023-07-25] MEDS: APIXABAN 5 MG TAB PO SCH (09:05)
[2023-07-25] MEDS: LOSARTAN 25 MG TAB PO SCH (09:05)
[2023-07-25] MEDS ORDERED: ACETAMINOPHEN TAB 325 MG TAB PO PRN (09:28)
[2023-07-25 10:02] VITALS: TEMP 98.1
--- NOTE | 2023-07-25 11:39 | CA ---
Transthoracic Echo Report Name: Didi Ruano Age: 73 Gender: F : 1950 Exam Date: 07/25/2023 08:50 Exam Location: [place] [facility] Ht (in): 61 Wt (lb): 147 Ordering Physician: Pipe Baker DO Attending/Referring Phys: Switchboard Manager Selena Thompson RDCS Procedure CPT: Indications: Thrombus Cardiac Hx: Technical Quality: Fair Contrast 1: Total Dose (mL): Contrast 2: Total Dose (mL): MEASUREMENTS (Male / Female) Normal Values 2D ECHO LV Diastolic Diameter PLAX 4.2 cm 4.2 - 5.9 / 3.9 - 5.3 cm LV Systolic Diameter PLAX 2.7 cm IVS Diastolic Thickness 1.2 cm 0.6 - 1.0 / 0.6 - 0.9 cm LVPW Diastolic Thickness 1.3 cm 0.6 - 1.0 / 0.6 - 0.9 cm LV Relative Wall Thickness 0.6 DOPPLER MV Peak Velocity 260.1 cm/s MV Peak Gradient 27.1 mmHg MV Mean Velocity 196.0 cm/s MV Mean Gradient 16.1 mmHg MV Velocity Time Integral 69.4 cm FINDINGS Left Ventricle Mildly increased left ventricular wall thickness. Left ventricular cavity size normal. Left ventricular ejection fraction is estimated at 50-55 %. Right Ventricle Right Atrium Left Atrium Mitral Valve S/P mitral valve reapair. Aortic Valve Tricuspid Valve Pulmonic Valve Pericardium No pericardial effusion. Aorta CONCLUSIONS Normal LV size preserved systolic function mild concentric LVH. No significant pericardial effusion mitral valve appears to be thickened there is mitral and the calcification possible repair history not available. No significant regurgitation. Right-sided pressures are not well quantified Previewed by: Dr. Skyler Hsu MD (Electronically Signed) Final Date: 25 July 2023 11:38
[2023-07-25 11:48] VITALS: BP 113/66; PULSE 81
[2023-07-25] MEDS ORDERED: CLOPIDOGREL 75 MG TAB PO STA (12:51)
[2023-07-26] MEDS ORDERED: FAMOTIDINE 20 MG TAB PO SCH (09:00)
[2023-07-26] MEDS ORDERED: CLOPIDOGREL 75 MG TAB PO SCH (09:00)
--- NOTE | 2023-07-28 13:54 | P.CNNES ---
History of Present Illness Consult date: 07/25/23 Requesting physician: Pipe Baker Reason for Consult: TIA History of Present Illness: Patient is a 73-year-old right-handed female came to the hospital by ambulance yesterday at 1:33 PM for possible TIA. Patient states that she got home at around 11:30 PM to noon after getting nails done and she was getting out of the car and she wanted to make a hot dog so she can eat. She was talking, when she suddenly had a feeling that she knew what she wanted to say but could not say it. What came out was not a word or what she was not intending to say. There was no slurred speech. She sat down at the kitchen table. A friend called and by talking to her, she does not remember that conversation. She also noticed numbness of the right upper lip region and the right arm felt heavy. She was talking slow and could not verbalize. She called her brother, who called the ambulance. Patient believes her speech difficulty lasted for about 10-15 minutes. As per EMS flow sheet, when they arrived, patient was sitting in her living room. Patient reports she was getting out of her car when she felt dizzy, numbness right side of her upper lip and aphasia. Patient reports symptoms have since resolved. Stroke scale was negative. Blood glucose 138. Cardiac monitoring showed no arrhythmia, although there was right bundle-branch block. Vital signs at the scene was blood pressure 174/80, pulse rate 92, respiration 1 4, saturation 97% and blood sugar 138. Blood test shows normal WBC hemoglobin 10.7, normal platelets. PT/PTT is normal, Chem-20, troponin is normal. At present patient states that the numbness has gone, but she has a headache this morning which she rates 4/10 involving bifrontal region and the right lower jaw. She feels slightly nauseous but no vomiting. Patient has been seen by myself on 05/29/2021 for possible TIA. CTA of the head was negative. Patient was recommended to be started on aspirin along with Eliquis, patient was on Crestor. Patient had a normal EEG performed at that time. She had a prior couple other spells of TIA in October 2018, and a second spell about March 2021 when she woke up in the middle of the night and felt confused, did not know where she was at. Patient is currently on Protonix, methotrexate, folic acid, Eliquis 5 mg twice a day, metoprolol, zinc, Crestor 20 mg, aspirin 81 mg, losartan, albuterol, B12, Simponi. Patient states that she very rarely may miss a dose of Eliquis. Patient has history of mitral valve replacement at [facility] on 11/15/2019. Patient also has history of ocular migraines, in which she gets some visual scotoma like a Boomerang which distorts her vision. She had 4 of them on Friday. Patient states that 2 days prior to arrival, on Friday she had a pain in the right jaw. Patient was a light smoker about 1 pack per month, quit 50 years ago. Never heavy smoker. Review of Systems Constitutional: Denies chills, Denies fever Eyes: denies blurred vision, denies diplopia, denies pain Ears: deny: decreased hearing, ear discharge Ears, nose, mouth and throat: Reports headache, Denies sore throat Cardiovascular: Denies chest pain, Denies shortness of breath Respiratory: Denies cough, Denies excessive sputum Gastrointestinal: Reports nausea, Denies abdominal pain, Denies diarrhea, Denies vomiting Genitourinary: Denies dysuria, Denies hematuria, Denies urge incontinence, Denies urgency Musculoskeletal: Reports low back pain, Denies myalgias, Denies neck pain Integumentary: Denies pruritus, Denies rash Neurological: Reports as per HPI Psychiatric: Denies anxiety, Denies depression Endocrine: Denies fatigue, Denies weight change Hematologic/Lymphatic: Reports easy bruising, Denies easy bleeding Past Medical History Past Medical History: Atrial Fibrillation, GERD/Reflux, Hyperlipidemia, O steoarthritis (OA), Rheumatoid Arthritis (RA) Additional Past Medical History / Comment(s): Compression fracture of L4 and L3 recently treated with kyphoplasty. Compression fracture L2 which is being treated conservatively compression fx L3-sx done. 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 History of Any Multi-Drug Resistant Organisms: None Reported Past Surgical History: Back Surgery, Cardiac Ablation, Orthopedic Surgery, Tonsillectomy Additional Past Surgical History / Comment(s): CATARATS LENS IMPLANTS, RT FOOT REMOVED 3 NODULES, right foot bone removed 05/18/18. Colonoscopy 2016(next after 5 years). kyphoplasty x2. Cardiac ablation surgery x2, epidural steroid injections for back pain, MITRAL VALVE REPLACEMENT. Story-Maze Afib procedure. November 2019, pain stimulator in back, right shoulder rotator cuff repair, hip replacement Past Anesthesia/Blood Transfusion Reactions: No Reported Reaction Additional Past Anesthesia/Blood Transfusion Reaction / Comment(s): . Past Psychological History: No Psychological Hx Reported Smoking Status: Former smoker Past Alcohol Use History: Occasional Additional Past Alcohol Use History / Comment(s): STARTED SMOKING AT AGE 19 TO AGE 29 SMOKED 1 PACK PER MONTH. Past Drug Use History: Marijuana Additional Drug Use History / Comment(s): Very rare marijuana use. - Past Family History Father Family Medical History: Cancer, Neurologic Disorder Additional Family Medical History / Comment(s): Prostate cancer. ARRYTHMIA, CORNEAL IMPLANTS, LT EYE BLIND , PARKINSONS, FATHER HAS Mother Family Medical History: Cancer, Coronary Artery Disease (CAD), Diabetes Mellitus, Myocardial Infarction ([place]) Additional Family Medical History / Comment(s): Uterine cancer. CATARACTS, DETATCHED RETINA, GLAUCOMA, MACULAR DEGENERATION, STENTS, BOWEL RESECTION FOR DIVERTICULITIS, KATINA KNEE REPLACEMENT. recently Brother(s) Family Medical History: Cancer, CVA/TIA Additional Family Medical History / Comment(s): stroke at 65. A different brother had lung cancer. Sister(s) Family Medical History: No Reported History Medications and Allergies Home Medications Medication Instructions Recorded Confirmed Type Pantoprazole Sodium [Protonix] 40 mg PO DAILY 06/29/14 07/24/23 History metHOTREXate sodium 12.5 mg PO TU 07/20/19 07/24/23 History Apixaban [Eliquis] 5 mg PO BID 11/28/19 07/24/23 History Folic Acid 1 mg PO DAILY 11/28/19 07/24/23 History Metoprolol Succinate (ER) [Toprol 25 mg PO DAILY 10/24/20 07/24/23 History XL] Zinc 50 mg PO DAILY 10/24/20 07/24/23 History Cholecalciferol (Vitamin D3) 125 mcg PO DAILY 05/29/21 07/24/23 History [Vitamin D3 (125 MCG = 5,000 IU)] Elderberry Fruit and Flower [Black 1 cap PO DAILY 02/05/22 07/24/23 History Elderberry 575 mg Cap] Albuterol Inhaler [Ventolin Hfa 2 puff INHALATION RT-Q6H PRN 10/20/22 07/24/23 History Inhaler] Ascorbic Acid [Vitamin C] 1,000 mg PO DAILY 10/20/22 07/24/23 History Cyanocobalamin (Vitamin B-12) 1,000 mcg PO DAILY 10/20/22 07/24/23 History [Vitamin B-12] Losartan Potassium [Cozaar] 25 mg PO DAILY 10/20/22 07/24/23 History Simponi 1 dose IV Q60D 05/07/23 07/24/23 History Clopidogrel [Plavix] 75 mg PO DAILY #30 tab 07/25/23 Rx Rosuvastatin [Crestor] 20 mg PO DAILY #30 tablet 07/25/23 Rx Allergies Allergy/AdvReac Type Severity Reaction Status Date / Time No Known Allergies Allergy Verified 07/24/23 18:05 Physical Examination - Vital Signs Vital Signs: Vital Signs Temp Pulse Pulse Resp BP BP Pulse Ox 07/25/23 08:51 98.1 F 88 16 120/79 96 07/25/23 03:48 98.6 F 82 16 119/73 96 07/24/23 23:50 97.6 F 90 18 100/64 96 07/24/23 20:44 72 16 152/81 98 07/24/23 20:11 97.3 F L 77 18 143/75 94 L 07/24/23 19:00 16 148/80 07/24/23 17:00 80 18 128/88 97 07/24/23 15:21 76 18 122/75 98 07/24/23 13:37 98.1 F 81 20 139/73 97 Intake and Output 07/24/23 07/25/23 07/25/23 22:59 06:59 14:59 Other: Voiding Method Toilet Toilet Toilet # Voids 1 Weight 66.678 kg Patient is an elderly female, in no acute distress. Patient is alert awake oriented to time place and person. Speech and language functions are normal. Patient can name and repeat very well. No aphasia or dysarthria. Attention, concentration and fund of knowledge is adequate. On cranial nerve examination, pupils are equal, round and reacting to light, visual silva are full on confrontation, with no neglect on double simultaneous stimulation. Extraocular muscles are intact with no nystagmus. Face is symmetric, tongue protrudes to the midline. Palatal elevation and sensation normal, hearing and shoulder shrug normal, facial sensation normal. On muscle strength testing, there is no pronator drift and the strength is norm al in arms and legs distally and proximally. Deltoids not checked because of arthritis. Deep tendon reflexes are symmetric 1 to 1+, symmetrical all over and plantars downgoing. Sensory to touch is equal with no neglect on double simultaneous stimulation. Cerebellar function showed no ataxia for [id number] testing. No dysdiadochokinesia. No ataxia for [id number] testing on either side. Tone and bulk of muscles normal. Gait deferred.. On general examination, there is no carotid bruit or murmur, S1-S2 audible. Chest is clear on consultation. Abdomen is soft nontender. No organomegaly, bowel sounds present. Peripheral pulses are present. No peripheral edema. Results - Laboratory Findings CBC and BMP: 07/24/23 14:27 07/24/23 14:27 Abnormal Lab Findings: Abnormal Labs 07/24/23 07/24/23 14:27 14:27 RBC 3.54 L Hgb 10.7 L Hct 32.3 L Chloride 110 H Assessment and Plan Assessment: * Possible TIA manifesting with transient expressive aphasia, right upper lip numbness and heavy feeling of the right arm. Symptoms seems to have completely resolved. Her current NIH stroke scale is 0. Differential also includes complex migraine. * History of TIA 3 in the past with no residual deficits * Atrial fibrillation, on anticoagulation with Eliquis * History of ocular migraine * Mitral valve replacement 11/15/2019 * History of back surgery * CAD Plan: * Patient had a TIA, the symptoms have resolved. Current examination is completely normal. * Patient also experiences frequent ocular migraines, which can also be perhaps related to microemboli. * Recommend switching from aspirin to Plavix 75 mg daily. Continue Eliquis 5 mg twice a day * CTA head and neck showed: No significant diameter reduction to account for the patient's symptoms. No significant stenosis, or occlusion or aneurysm. * Patient has history of mitral valve replacement. She may benefit from a JOSE L, particularly if symptoms of TIA persists. Patient was recommended to follow- up with the data entry manager. * Fasting a.m. lipid panel with cholesterol 141, LDL 72, HDL 49 and triglycerides 98. Continue Crestor 20 mg daily. * Hemoglobin A1c 5.5 on 05/30/2021. * Optimize control of blood pressure * Neurologically clear for discharge. * Recommend patient follow up with neurologist outpatient. Names of a couple local neurologist provided. * Thank you for the consult. Time with Patient: Greater than 30
== END 2023-07-25 14:14 | disposition home or self-care (01) ==
LOC: EC 13:33 → 3SCARD 16:49
PROVIDERS: ADMIT Hospitalist; ATTEND Hospitalist
DX: G45.9 Transient cerebral ischemic attack, unspecified (principal); R47.01 Aphasia; R53.1 Weakness; I48.91 Unspecified atrial fibrillation; K21.9 Gastro-esophageal reflux disease without esophagitis; E78.5 Hyperlipidemia, unspecified; Z86.718 Personal history of other venous thrombosis and embolism; Z86.19 Personal history of other infectious and parasitic diseases; Z87.891 Personal history of nicotine dependence; Z95.2 Presence of prosthetic heart valve; Z79.01 Long term (current) use of anticoagulants; Z79.82 Long term (current) use of aspirin; Z79.899 Other long term (current) drug therapy
CPT/HCPCS: 96374; 99285; 36415; 94760; 93005; 93308; 97161; 92523; 80061; 80053; 84484; 85025; 85610; 85730; 70496; 70450; 70498; G0378 ×2; J3490; Q9967

== ENCOUNTER → 2023-09-05 | Day surgery (SDC) | payer MEDICARE ==
[2023-09-02 13:50] VITALS: BMI 26.2
[~2023-09-05] MED LIST changes: -SODIUM CHLORIDE 0.9% 1,000 ML IV SCH
[2023-09-05 11:58] VITALS: TEMP 97.3
[2023-09-05] MEDS: BENZOCAINE SPRAY 1 CAN TOPICAL ONE ×2 (12:38→12:45)
[2023-09-05 15:35] VITALS: BP 134/59; PULSE 64; RESP 16
--- NOTE | 2023-09-05 17:53 | P.TEE ---
Date of Procedure: 09/05/23 Description of Procedure(s): Procedure performed: 1. Transesophageal Echocardiogram with color flow doppler, pulsed wave doppler and continuous wave doppler, 2. Bubble Study 3. Moderate conscious sedation. Sedation time 22 mins. Indications: H/o of bioprosthetic mitral valve. Recent CVA. Rule out thrombus and infective endocarditis. Consent: I have discussed the risks, benefits and alternative therapies for the above-mentioned procedure. The patient has indicated understanding and acceptance of the risks of the procedure. Signed consent was obtained and was placed in the paper chart. Procedural Steps: Timeout was performed in usual fashion. Patient's heart rate, blood pressure, oxygen saturation and ECG were monitored. Benzocaine was sprayed liberally in the back of the throat. Bite block was placed between the jaw. 3 mg of Versed and 50 mcg of Fentanyl were administered intravenously. After achieving appropriate moderate conscious sedation, JOSE L probe was advanced without difficulty and without any immediate complications to the esophagus. JOSE L study was performed with color flow doppler, pulsed wave doppler and continuous wave doppler. Agitated saline bubbles were injected to assess for any intra- atrial shunt. The probe was then removed. Patient tolerated the procedure well. Patient was transferred to the post procedure area in stable and satisfactory condition. Throughout the procedure patient's heart rate, blood pressure, oxygen saturation and ECG were monitored. Total sedation time 22 mins. Complications: none FINDINGS Left Atrium: Moderate LA dilatation, no thrombus Left Atrial Appendage: Cannot visualize DEE. Possible Atriclip placement with good exclusion of DEE. No significant flow across. Inter atrial septum: Intact inter-atrial septum on color Doppler. Left Ventricle: Normal global LV size and systolic function Right Atrium: Mild RA dilatation Right Ventricle: Normal global RV size and systolic function Aortic Valve: Structurally normal Trileaflet, no significant calcification. No significant stenosis or regurgitation on color doppler assessment. Mitral Valve: Bioprosthetic mitral valve with no evidence of thrombus or endocarditis. Moderate eccentric mitral regurgitation. EROA 0.3. Pansystolic with reversal of S/D ratio in pulmonic vein. Pulmonic Valve: No significant regurgitation or stenosis. Tricuspid Valve: Mild TR. Surgical annular ring in place, no thrombus or endocarditis. Ascending aorta, Aortic root and Aortic arch: Not dilated normal size Descending aorta: calcic intimal thickening CONCLUSION: 1. No evidence of endocarditis. 2. No evidence of intra-cardiac thrombus. 3. Moderate eccentric MR 4. Moderate LA dilatation with s/d reversal in pulmo vein suggest elevated LA filling pressures 5. Mild TR with annular ring in place 6. No DEE, possibly Atriclip in place If patient's surgical report states that she had had atriclip ligation, i feel it is appropriate to reconsider the need for systemic anticoagulation. She did have a TIA while she was on eliquis, not sure about compliance. Wm Longo MD
== END ==
LOC: CATHCVL 11:08
PROVIDERS: ATTEND Student in an Organized Health Care Education/Training Program
DX: I34.1 Nonrheumatic mitral (valve) prolapse (principal); I51.7 Cardiomegaly; I48.91 Unspecified atrial fibrillation; I25.10 Atherosclerotic heart disease of native coronary artery without angina pectoris; I49.8 Other specified cardiac arrhythmias; I70.90 Unspecified atherosclerosis; G45.9 Transient cerebral ischemic attack, unspecified; E78.5 Hyperlipidemia, unspecified; F17.200 Nicotine dependence, unspecified, uncomplicated; Z79.01 Long term (current) use of anticoagulants; Z79.02 Long term (current) use of antithrombotics/antiplatelets; Z79.899 Other long term (current) drug therapy
CPT/HCPCS: 93312; 93320; 93325; J2250; J3010

== ENCOUNTER → 2023-11-07 | Outpatient (CLI) | payer MEDICARE ==
[2023-11-07 15:53] LABS: Basophils # (A) 0.05 X 10*3/uL (0.00-0.10); Eosinophils # (A) 0.38 X 10*3/uL (0.04-0.35); Eosinophils % (A) 7.8 %; HCT 35.5 % (37.2-46.3); HGB 11.6 g/dL (12.0-15.0); Lymphocytes # (A) 1.07 X 10*3/uL (0.90-5.00); MCH 30.1 pg (27.0-32.0); MCHC 32.7 g/dL (32.0-37.0); Mean Platelet Volume 11.8 FL (9.5-12.2); Monocytes # (A) 0.63 X 10*3/uL (0.20-1.00); Monocytes % (A) 12.9 %; NRBC Per 100 WBC 0 X 10*3/uL (0.00-0.01); Neutrophils # (A) 2.73 X 10*3/uL (1.80-7.70); Neutrophils % (A) 56.1 %; Platelet Count 193 X 10*3/uL (140-440); RBC 3.86 X 10*6/uL (4.10-5.20); RDW 15.9 % (11.5-14.5); WBC 4.87 X 10*3/uL (4.50-10.00)
[2023-11-07 16:21] LABS: ALT 32 U/L (8-44); AST 38 U/L (13-35); Blood Urea Nitrogen 16.6 mg/dL (9.0-27.0); Calcium 10.1 mg/dL (8.7-10.3)
[2023-11-07 18:57] LABS: Erythrocyte Sedimentation Rate 12 mm/Hr (0-30)
== END | disposition home or self-care (01) ==
LOC: LABWHC1 12:05
PROVIDERS: ATTEND Internal Medicine Rheumatology
DX: M25.50 Pain in unspecified joint (principal); M06.4 Inflammatory polyarthropathy; M81.0 Age-related osteoporosis without current pathological fracture; Z79.01 Long term (current) use of anticoagulants
CPT/HCPCS: 36415; 82306; 82310; 82565; 84450; 84460; 84520; 85025; 85652; 86140

== ENCOUNTER 2023-11-26 18:49 | Emergency (ER) | payer MEDICARE ==
[2023-11-26 19:04] VITALS: RESP 18; TEMP 96.8
[2023-11-26 19:16] LABS: Anisocytosis Slight; Basophils # (A) 0.1 k/uL (0-0.2); Basophils % (A) 1 %; Eosinophils # (A) 0.4 k/uL (0-0.7); Eosinophils % (A) 5 %; HCT 37.2 % (34.0-46.0); Lymphocytes # (A) 2.5 k/uL (1.0-4.8); Lymphocytes % (A) 30 %; MCH 30.2 pg (25.0-35.0); MCHC 32.3 g/dL (31.0-37.0); MCV 93.5 fL (80.0-100.0); Mean Platelet Volume 8.8; Monocytes # (A) 0.7 k/uL (0-1.0); Monocytes % (A) 9 %; Neutrophils # (A) 4.3 k/uL (1.3-7.7); Neutrophils % (A) 52 %; Platelet Count 175 k/uL (150-450); RBC 3.98 m/uL (3.80-5.40); RDW 16.4 % (11.5-15.5); WBC 8.3 k/uL (3.8-10.6)
[2023-11-26 19:36] LABS: ALT 34 U/L (4-34); AST 58 U/L (14-36); African American GFR (CKD) 67 (>60 ml/min/1.73 sqM); Albumin 4.4 g/dL (3.5-5.0); Alkaline Phosphatase 84 U/L (38-126); Anion Gap 15 mmol/L; Blood Urea Nitrogen 20 mg/dL (7-17); Calcium 9.2 mg/dL (8.4-10.2); Carbon Dioxide 17 mmol/L (22-30); Chloride 105 mmol/L (98-107); Glucose 103 mg/dL (74-99); Non-African American GFR(CKD) 59 (>60 ml/min/1.73 sqM); Potassium 3.4 mmol/L (3.5-5.1); Sodium 137 mmol/L (137-145); Total Bilirubin 0.6 mg/dL (0.2-1.3); Total Protein 7.5 g/dL (6.3-8.2)
[2023-11-26] MEDS: LIDOCAINE 1% INJ 10MG/ML (20 ML MDV) SQ ONE (19:44)
[2023-11-26 19:54] LABS: Alcohol 229 mg/dL
[2023-11-26] MEDS: DIPH,PERTUS(ACELL)TETVAC-LF 0.5 ML VIAL IM ONE (19:59)
[2023-11-26] MEDS: METOCLOPRAMIDE 5 MG/ML 2 ML VIAL IVP STA (19:59)
--- NOTE | 2023-11-26 21:28 | ED ---
Fall HPI - General Chief Complaint: Fall Stated Complaint: Altered Mental Status, ETOH, Fall Time Seen by Provider: 11/26/23 18:53 Source: EMS Mode of arrival: EMS - History of Present Illness Initial Comments: This 73-year-old female presents with complaint of a fall and head injury. She presents via EMS after she apparently was trying to get into a vehicle. She fell and hit her head on another vehicle and possibly the ground. This occurred just shortly prior to arrival. She denies any loss of consciousness. She had 3 episodes of vomiting prior to arrival. She is on Plavix but no other blood thinners. She apparently was drinking alcohol today. She states that she stopped drinking beer so started drinking vodka instead. She states that she had 3 vodka drinks today. She also relates that she does not normally drink very regularly and definitely not on a daily basis. She did obtain a laceration to her right eyebrow. She denies any other injuries. She presents in a c- collar but denies any neck pain. She denies any back pain or extremity pain. No other complaints or modifying factors. - Related Data Home Medications Medication Instructions Recorded Confirmed Pantoprazole Sodium [Protonix] 40 mg PO DAILY 06/29/14 09/05/23 metHOTREXate sodium 12.5 mg PO TU 07/20/19 09/05/23 Apixaban [Eliquis] 5 mg PO BID 11/28/19 09/05/23 Folic Acid 1 mg PO DAILY 11/28/19 09/05/23 Metoprolol Succinate (ER) [Toprol 25 mg PO DAILY 10/24/20 09/05/23 XL] Zinc 50 mg PO DAILY 10/24/20 09/05/23 Cholecalciferol (Vitamin D3) 125 mcg PO DAILY 05/29/21 09/05/23 [Vitamin D3 (125 MCG = 5,000 IU)] Ascorbic Acid [Vitamin C] 1,000 mg PO Q48H 10/20/22 09/05/23 Cyanocobalamin (Vitamin B-12) 1,000 mcg PO DAILY 10/20/22 09/05/23 [Vitamin B-12] Losartan Potassium [Cozaar] 25 mg PO DAILY 10/20/22 09/05/23 Simponi 1 dose IV Q60D 05/07/23 09/02/23 Previous Rx's Medication Instructions Recorded Clopidogrel [Plavix] 75 mg PO DAILY #30 tab 07/25/23 Rosuvastatin [Crestor] 20 mg PO DAILY #30 tablet 07/25/23 Allergies Allergy/AdvReac Type Severity Reaction Status Date / Time No Known Allergies Allergy Verified 11/26/23 18:55 Review of Systems ROS Statement: Those systems with pertinent positive or pertinent negative responses have been documented in the HPI. ROS Other: All systems not noted in ROS Statement are negative. Past Medical History Past Medical History: Atrial Fibrillation, CVA/TIA, GERD/Reflux, Hyperlipidemia, Musculoskeletal Disorder, Osteoarthritis (OA), Rheumatoid Arthritis (RA) Additional Past Medical History / Comment(s): Hx TIA 07/25/23 and also 2 yrs ago, no residual effects. Compression fractures X9, has stimulator, non functioning at this time. 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 History of Any Multi-Drug Resistant Organisms: None Reported Past Surgical History: Back Surgery, Cardiac Ablation, Cardiac Valve Replacement, Joint Replacement, Orthopedic Surgery, Tonsillectomy Additional Past Surgical History / Comment(s): CATARATS REMOVED WITH LENS IMPLANTS, 3 NODULES REMOVED FROM RIGHT FOOT, bone in right foot removed, colonoscopy, kyphoplasty X2, cardiac ablation X2, epidural steroid injections for back pain, MITRAL VALVE REPLACEMENT, with sepsis after, Story-Maze A-fib procedure, pain stimulator in back, right shoulder rotator cuff repair, right hip replacement. Past Anesthesia/Blood Transfusion Reactions: No Reported Reaction Additional Past Anesthesia/Blood Transfusion Reaction / Comment(s): . Past Psychological History: No Psychological Hx Reported Smoking Status: Former smoker Past Alcohol Use History: Occasional Past Drug Use History: Marijuana - Past Family History Father Family Medical History: Cancer, Neurologic Disorder Additional Family Medical History / Comment(s): Prostate cancer. ARRYTHMIA, CORNEAL IMPLANTS, LT EYE BLIND, PARKINSONS, FATHER HAS . Mother Family Medical History: Cancer, Coronary Artery Disease (CAD), Diabetes Mellitus, Eye Disorder, Myocardial Infarction ([place]) Additional Family Medical History / Comment(s): Uterine cancer. CATARACTS, DETATCHED RETINA, GLAUCOMA, MACULAR DEGENERATION, STENTS, BOWEL RESECTION FOR DIVERTICULITIS, BILATERAL KNEE REPLACEMENT. . Brother(s) Family Medical History: Cancer, CVA/TIA Additional Family Medical History / Comment(s): One brother had a stroke at age 65. A different brother had lung cancer. Sister(s) Family Medical History: No Reported History General Exam - General Exam Comments Initial Comments: GENERAL: The patient is well nourished and well hydrated. VITAL SIGNS: Heart rate, blood pressure, respiratory rate reviewed as recorded in nurse's notes. EYES: Pupils are round and reactive. Extraocular movements are intact. No conjunctival / lid redness or swelling. ENT: No external evidence of injury, swelling, or ecchymosis. Airway is patent. Throat is clear. There is a 3 cm laceration present to the right eyebrow region. This overall is superficial but does require closure. There is significant right Robert orbital ecchymosis. There also is some ecchymosis and swelling present to the right lower lip. There is minor facial abrasions noted. NECK: Nontender. No swelling or evidence of injury. No subcutaneous emphysema. Trachea is midline. No thyroid mass. HEART: Regular rate and rhythm. Good peripheral pulses. LUNGS/CHEST: Breath sounds clear and equal bilaterally. No rales, rhonchi, or wheezes. No ecchymosis, subcutaneous emphysema, or tenderness. ABDOMEN: Abdomen soft without tenderness. No palpable masses or organomegaly. No peritoneal signs. No abdominal wall swelling or ecchymosis. EXTREMITIES: No extremity tenderness. Normal muscle tone and function. No thoracolumbar tenderness. NEUROLOGIC: Sensation is grossly intact. Cranial nerve exam reveals face is symmetrical, tongue is midline, speech is clear. SKIN: No induration or masses noted. Mild abrasion noted over the left dorsal hand. PSYCHIATRIC: Alert and oriented. Appears mildly intoxicated initially and this subsequently improves. Limitations: altered mental status Course Vital Signs 11/26/23 18:53 Temperature 96.8 F L Pulse Rate 83 Respiratory 18 Rate Blood Pressure 162/92 O2 Sat by Pulse 97 Oximetry Medical Decision Making - Medical Decision Making The patient was seen and examined. All diagnostics are reviewed. The patient was seen immediately upon arrival. She did not meet criteria for the trauma team to be assembled as it was a fall from standing on Plavix. The patient nevertheless was seen immediately. Dressing and ice pack is applied to the right periorbital region by EMS. She presents in a c-collar as well. IV is established by EMS and she did receive some Zofran prior to arrival. She is mary ramon on the residential monitor and no ectopy is identified. She received Reglan in the emergency department. The patient also later received Zofran and she had another vomiting episode. She is unsure of her last tetanus prophylaxis so this is updated. Her laboratory came back showing mild hypokalemia. Her CO2 is decreased at 17. The alcohol came back elevated at 229. She is hydrated. The CT scan of the brain shows evidence of a subarachnoid hemorrhage per my interpretation. Case is discussed with the radiologist in this regard and he also agrees with this. He states there also might be a slight brain contusion. The patient is mentating well on recheck and appears more sober. It is felt as though she would benefit from transfer to a larger facility with neurosurgical coverage. They are agreeable to transfer to [facility]. The patient is counseled regarding alcohol use. The CT scan of the cervical spine shows evidence of cervical arthritis per my interpretation but no evidence of fracture. C-collar is maintained. Her right eyebrow laceration is closed with a total of 7 simple opted 6-0 nylon sutures. She is instructed to have these removed in 7 to 10 days. There is a delay in transfer due to a delay in obtaining the CT scan of the brain and cervical spine and obtaining read for these imaging and significant delay in [facility]'s transfer center setting also up for transfer. Was pt. sent in by a medical professional or institution (, PA, TAR HEATER, urgent care, hospital, or skilled nursing...) When possible be specific @ -No Did you speak to anyone other than the patient for history (EMS, parent, family, police, friend...)? What history was obtained from this source @ -Case is discussed with the paramedics upon arrival and they give additional history. Did you review nursing and triage notes (agree or disagree)? Why? @ -I reviewed and agree with nursing and triage notes Were old charts reviewed (outside hosp., previous admission, EMS record, old EKG, old radiological studies, urgent care reports/EKG's, skilled nursing records)? Report findings @ -Old records were reviewed. Additional past medical history is obtained. Differential Diagnosis (chest pain, altered mental status, abdominal pain women, abdominal pain men, vaginal bleeding, weakness, fever, dyspnea, syncope, headache, dizziness, GI bleed, back pain, seizure, CVA, palpatations, mental health, musculoskeletal)? @ -Head injury, intracranial bleed, subarachnoid hemorrhage, concussion, nausea and vomiting, facial laceration, alcohol intoxication, fall from standing. EKG interpreted by me (3pts min.). @ -Not completed X-rays interpreted by me (1pt min.). @ -None done CT interpreted by me (1pt min.). @ -As above U/S interpreted by me (1pt. min.). @ -None done What testing was considered but not performed or refused? (CT, X-rays, U/S, labs)? Why? @ -None What meds were considered but not given or refused? Why? @ -None Did you discuss the management of the patient with other professionals (professionals i.e. Dr., PA, TAR HEATER, lab, RT, psych nurse, manager social work, footwear sales leader, teacher, navigation officer, top case assembler)? Give summary @ -Case is discussed with Dr. Foster from neurosurgery and Dr. Bennett from the ER and they accept transfer to [facility]. Was smoking cessation discussed for >3mins.? @ -No Was critical care preformed (if so, how long)? @ -35 minutes of critical care time was utilized in the treatment of the patient. This does not include time necessary for the procedure of laceration repair. Were there social determinants of health that impacted care today? How? (Homelessness, low income, unemployed, alcoholism, drug addiction, transportation, low edu. Level, literacy, decrease access to med. care, senior care, rehab)? @ -No Was there de-escalation of care discussed even if they declined (Discuss DNR or withdrawal of care, Hospice)? DNR status @ -No What co-morbidities impacted this encounter? (DM, HTN, Smoking, COPD, CAD, Can cer, CVA, ARF, Chemo, Hep., AIDS, mental health diagnosis, sleep apnea, morbid obesity)? @ -Atrial fibrillation, hyperlipidemia. Was patient admitted / discharged? Hospital course, mention meds given and route, prescriptions, significant lab abnormalities, going to OR and other pertinent info. @ -Patient was transferred to [facility] emergency department for further neurosurgical evaluation. Undiagnosed new problem with uncertain prognosis? @ -No Drug Therapy requiring intensive monitoring for toxicity (Heparin, Nitro, Insulin, Cardizem)? @ -No Were any procedures done? @ -Laceration Repair Note Location: Right forehead Anesthesia: Lidocaine Laceration length/type: 3 cm Suture type/size: 6-0 nylon Number of sutures: 7 The wound was cleansed with normal saline irrigation under pressure. Wound exploration reveals no muscle, tendon, nerve injury or foreign body. Wound was repaired under sterile technique. Sterile dressing was applied. Patient tolerated the procedure well. Patient is neurovascularly intact. Patient was told to return to their PCP or ED in 7-10 days for suture removal. They are to keep the wound clean and dry with antibiotic ointment and minimize sun exposure. If they develop any fever, purulent discharge, increasing redness, pain or swelling they are to return immediately to the ED for re-evaluation for wound infection. Diagnosis/symptom? @ -Subarachnoid hemorrhage, fall from standing, Plavix coagulopathy, right eyebrow laceration, facial abrasions Acute, or Chronic, or Acute on Chronic? @ -Acute Uncomplicated (without systemic symptoms) or Complicated (systemic symptoms)? @ -Uncomplicated Side effects of treatment? @ -No Exacerbation, Progression, or Severe Exacerbation? @ -No Poses a threat to life or bodily function? How? (Chest pain, [place], [place], pneumonia, PE, COPD, DKA, ARF, appy, cholecystitis, CVA, Diverticulitis, Homicidal, Suicidal, threat to staff... and all critical care pts) @ -An intracranial bleed is potentially life-threatening. - Lab Data Result diagrams: 11/26/23 19:01 11/26/23 19:01 Lab Results 11/26/23 11/26/23 11/26/23 Range/Units 19:01 19:01 19:01 WBC 8.3 (3.8-10.6) k/uL RBC 3.98 (3.80-5.40) m/uL Hgb 12.0 (11.4-16.0) gm/dL Hct 37.2 (34.0-46.0) % MCV 93.5 (80.0-100.0) fL MCH 30.2 (25.0-35.0) pg MCHC 32.3 (31.0-37.0) g/dL RDW 16.4 H (11.5-15.5) % Plt Count 175 (150-450) k/uL MPV 8.8 Neutrophils % 52 % Lymphocytes % 30 % Monocytes % 9 % Eosinophils % 5 % Basophils % 1 % Neutrophils # 4.3 (1.3-7.7) k/uL Lymphocytes # 2.5 (1.0-4.8) k/uL Monocytes # 0.7 (0-1.0) k/uL Eosinophils # 0.4 (0-0.7) k/uL Basophils # 0.1 (0-0.2) k/uL Anisocytosis Slight PT 11.0 (10.0-12.5) sec INR 1.0 (<1.2) APTT 22.0 (22.0-30.0) sec Sodium 137 (137-145) mmol/L Potassium 3.4 L (3.5-5.1) mmol/L Chloride 105 (98-107) mmol/L Carbon Dioxide 17 L (22-30) mmol/L Anion Gap 15 mmol/L BUN 20 H (7-17) mg/dL Creatinine 0.96 (0.52-1.04) mg/dL Est GFR (CKD-EPI)AfAm 67 (>60 ml/min/1.73 sqM) Est GFR (CKD-EPI)NonAf 59 (>60 ml/min/1.73 sqM) Glucose 103 H (74-99) mg/dL Calcium 9.2 (8.4-10.2) mg/dL Total Bilirubin 0.6 (0.2-1.3) mg/dL AST 58 H (14-36) U/L ALT 34 (4-34) U/L Alkaline Phosphatase 84 (38-126) U/L Total Protein 7.5 (6.3-8.2) g/dL Albumin 4.4 (3.5-5.0) g/dL Serum Alcohol 229 H* mg/dL Disposition Clinical Impression: Fall, Subarachnoid hemorrhage, Head injury, Dehydration, Alcohol intoxication, Degenerative arthritis of cervical spine, Facial laceration, Hypokalemia, Hypertension Disposition: OTHER INSTITUTION NOT DEFINED Condition: Fair Is patient prescribed a controlled substance at d/c from ED?: No Time of Disposition: 21:29 - Out of Hospital Transfer - Req. Specs Out of Hospital Transfer - Requested Specifics: Other Emergency Center ([facility] emergency department)
--- NOTE | 2023-11-26 21:31 | CT ---
EXAMINATION TYPE: CT brain cspine wo con CT DLP: 1444.3 mGycm, Automated exposure control for dose reduction was used. DATE OF EXAM: 11/26/2023 8:36 PM COMPARISON: CT brain 07/24/2023 CLINICAL INDICATION:Female, 73 years old with history of trauma; Fall from standing, No LOC, on thinn ers, ETOH. TECHNIQUE: Brain: Multiple axial CT images of the brain were obtained without IV contrast. Cspine: Axial CT images from the skull base to the inferior aspect of T2 we obtained without intraven ous contrast. Coronal and sagittal reformatted images were also reviewed. FINDINGS: Brain: There is curvilinear increased attenuation in the right cerebral hemisphere which appears to be withi n a sulcus near the frontoparietal junction, image 41 series 202. There is vague increased attenuatio n small focus in the underlying white matter which could represent a small contusion. A large hematom a is not identified. Similarly, there is small volume subarachnoid hemorrhage along the undersurface of the left occipital lobe just above the tentorium. Additional small volume subarachnoid hemorrhage along the inferior as pect of the right frontal lobe just above the orbit. Cerebellum is partially obscured by dental hardw are 0streak artifact but no gross abnormality is identified. There is no significant mass effect, midline shift, or herniation identified. There is diffuse sulcal and ventricular prominence likely the sequela of brain volume loss. Mild to moderate generalized atr ophy. Mild/moderate patchy hypoattenuation of the white matter throughout the cerebrum, likely reflec ting chronic microvascular ischemic changes. Basal cisterns are patent. There is significant periorbital preseptal soft tissue swelling on the right with some extension supe riorly and inferiorly. No postseptal intraorbital hematoma is identified. The globes appear grossly i ntact. There has probably been prior lens surgery bilaterally. No acute calvarial fracture is identified. No orbital fractures demonstrated by this exam. Temporoman dibular joints appear normally positioned. There is extensive dental hardware. The paranasal sinuses show some lobular mucosal thickening in the right sphenoid sinus without signif icant fluid accumulation throughout the paranasal sinuses or mastoids. Calcification of the larger ar teries noted at the skull base. Cervical spine: Fracture: None seen. Osseous structures, spinal canal/neural foramina: Bones appear somewhat demineralized. Craniocervical junction appears intact with moderate chronic degenerative changes of the atlantooccipital articulat ions and what appear to be small corticated calcifications adjacent. There are moderate to severe deg enerative changes of the anterior and lateral articulations of C1-C2 with preserved alignment. There is mild/moderate narrowing of the canal and neural foramina at this level. Somewhat milder degenerative disc changes and facet arthrosis throughout the remainder of the cervica l spine with various degrees of mild to moderate stenosis seen. No critical stenosis seen. If concern for neurologic injury however, MRI may be considered. Vertebral alignment: No traumatic malalignment. Preserved normal cervical lordosis. Mild degenerative anterolisthesis C4 on C5 and C5 on C6. Neck soft tissues: No acute finding. Calcifications noted involving the cervical carotid arteries mos tly in the bifurcation regions, left greater than right, and along the aortic arch. Other: Lung apices show mild scarring, no acute infiltrate or pneumothorax. IMPRESSION: CT head: 1. Acute, small volume multifocal subarachnoid hemorrhages, and possible small underlying white nely er contusion in the mid right cerebral hemisphere. Close follow-up advised. 2. No significant mass effect, midline shift, or herniation. 3. Right periorbital, preseptal soft tissue swelling/hematoma. No evidence of intraorbital hematoma. Globe appears intact. 4. No displaced orbital or calvarial fracture is identified. 5. Mild/moderate background generalized brain atrophy and chronic microvascular ischemic changes. CT cervical spine: 1. No evidence of acute cervical spine fracture or traumatic malalignment. 2. Moderate multilevel cervical spondylosis. Critical findings of intracranial hemorrhages communicated to Kris Ayers DO on 11/26/2023 9:[address] Kris Oakes by phone
[2023-11-26] MEDS: SODIUM CHLORIDE 0.9% 500 ML IV STA (21:43)
[2023-11-26] MEDS: SODIUM CHLORIDE 0.9% 1,000 ML IV STA (21:43)
[2023-11-26] MEDS: POTASSIUM CHLORIDE ER 20 MEQ TAB.ER PO STA (21:44)
[2023-11-26] MEDS: MORPHINE SULFATE 4 MG/ML SYRINGE IV STA (22:10)
[2023-11-26] MEDS: ONDANSETRON 4 MG/2 ML VIAL IVP STA ×2 (22:28→23:16)
[2023-11-26 23:53] VITALS: BP 117/69; PULSE 77
== END 2023-11-26 23:16 | disposition other institution (70) ==
LOC: EC 18:49
DX: S06.6X0A Traumatic subarachnoid hemorrhage without loss of consciousness, initial encounter (principal); S01.111A Laceration without foreign body of right eyelid and periocular area, initial encounter; E86.0 Dehydration; F10.129 Alcohol abuse with intoxication, unspecified; M47.9 Spondylosis, unspecified; E87.6 Hypokalemia; I48.91 Unspecified atrial fibrillation; Z87.891 Personal history of nicotine dependence; F12.90 Cannabis use, unspecified, uncomplicated; W18.09XA Striking against other object with subsequent fall, initial encounter
CPT/HCPCS: 36415; 80053; 85025; 85610; 85730; 72125; 70450; 90715; 12013; 99291; 96374; 96375 ×2; 96376; 96361 ×2; G0480; J2270; J2765; J2405; J2001; 80320

== ENCOUNTER → 2024-03-23 | Outpatient (CLI) | payer MEDICARE ==
[2024-03-23 12:56] VITALS: BP 116/73; PULSE 91; RESP 17; TEMP 98
--- NOTE | 2024-03-23 16:11 | P.HPOB ---
History of Present Illness H&P Date: 03/23/24 Chief Complaint: The patient is here for her routine gynecologic exam and ma mmogram. This is a 74-year-old G0 with an LMP of 2005. The patient is without gynecologic complaints. Review of Systems The patient has lost 11 pounds over the last year. Weight loss has been intentional and she has done this through dietary changes. She denies respiratory, cardiac, or G.I. problems. Past Medical History Past Medical History: Atrial Fibrillation, CVA/TIA, GERD/Reflux, Hyperlipidemia, Musculoskeletal Disorder, Osteoarthritis (OA), Rheumatoid Arthritis (RA) Additional Past Medical History / Comment(s): Hx TIA 07/25/23 and also 2 yrs ago, no residual effects. Compression fractures X9, has stimulator, non functioning at this time. 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 History of Any Multi-Drug Resistant Organisms: None Reported Past Surgical History: Back Surgery, Cardiac Ablation, Cardiac Valve Replacemen t, Joint Replacement, Orthopedic Surgery, Tonsillectomy Additional Past Surgical History / Comment(s): CATARATS REMOVED WITH LENS IMPLANTS, 3 NODULES REMOVED FROM RIGHT FOOT, bone in right foot removed, colonoscopy, kyphoplasty X2, cardiac ablation X2, epidural steroid injections for back pain, MITRAL VALVE REPLACEMENT, with sepsis after, Story-Maze A-fib procedure, pain stimulator in back, right shoulder rotator cuff repair, right hip replacement. Past Anesthesia/Blood Transfusion Reactions: No Reported Reaction Additional Past Anesthesia/Blood Transfusion Reaction / Comment(s): . Past Psychological History: No Psychological Hx Reported Smoking Status: Former smoker Past Alcohol Use History: Occasional Additional Past Alcohol Use History / Comment(s): SMOKED FROM AGE 19 TO AGE 29, 1 PACK PER MONTH. Past Drug Use History: Marijuana Additional Drug Use History / Comment(s): Very rare marijuana use, "twice in life". - Past Family History Father Family Medical History: Cancer, Neurologic Disorder Additional Family Medical History / Comment(s): Prostate cancer. ARRYTHMIA, CORNEAL IMPLANTS, LT EYE BLIND, PARKINSONS, FATHER HAS . Mother Family Medical History: Cancer, Coronary Artery Disease (CAD), Diabetes Mellitus, Eye Disorder, Myocardial Infarction ([place]) Additional Family Medical History / Comment(s): Uterine cancer. CATARACTS, DETATCHED RETINA, GLAUCOMA, MACULAR DEGENERATION, STENTS, BOWEL RESECTION FOR DIVERTICULITIS, BILATERAL KNEE REPLACEMENT. . Brother(s) Family Medical History: Cancer, CVA/TIA Additional Family Medical History / Comment(s): One brother had a stroke at age 65. A different brother had lung cancer. Sister(s) Family Medical History: No Reported History Medications and Allergies Home Medications Medication Instructions Recorded Confirmed Type Pantoprazole Sodium [Protonix] 40 mg PO DAILY 06/29/14 03/23/24 History metHOTREXate sodium [Methotrexate] 12.5 mg PO TU 07/20/19 03/23/24 History Folic Acid 1 mg PO DAILY 11/28/19 03/23/24 History Metoprolol Succinate (ER) [Toprol 25 mg PO DAILY 10/24/20 03/23/24 History XL] Zinc 50 mg PO DAILY 10/24/20 03/23/24 History Cholecalciferol (Vitamin D3) 125 mcg PO DAILY 05/29/21 03/23/24 History [Vitamin D3 (125 MCG = 5,000 IU)] Cyanocobalamin (Vitamin B-12) 1,000 mcg PO DAILY 10/20/22 03/23/24 History [Vitamin B-12] Losartan Potassium [Cozaar] 25 mg PO DAILY 10/20/22 03/23/24 History Simponi 1 dose IV Q60D 05/07/23 03/23/24 History Clopidogrel [Plavix] 75 mg PO DAILY #30 tab 07/25/23 03/23/24 Rx Rosuvastatin [Crestor] 20 mg PO DAILY #30 tablet 07/25/23 03/23/24 Rx Allergies Allergy/AdvReac Type Severity Reaction Status Date / Time No Known Allergies Allergy Verified 03/23/24 12:52 Exam Vital Signs Temp Pulse Resp BP Pulse Ox 03/23/24 12:53 98 F 91 17 116/73 97 Intake and Output 03/23/24 03/23/24 03/23/24 06:59 14:59 22:59 Other: Weight 63.957 kg Height 5 feet 2 inches, weight 141 pounds, BMI 25.8. This is a well-developed well-nourished white female who is alert and oriented times 3 in no acute distress. HEENT: Within normal limits. NECK: Supple without mass or thyromegaly. CHEST AND LUNGS: Clear to auscultation. HEART: Regular rate and rhythm. BREASTS: Are without mass or discharge. There is bilateral nipple inversion. The patient states she has had this most of her life. AXILLARY EXAM: Negative for adenopathy. BACK: Negative for CVA tenderness. ABDOMEN: Soft, nontender, without palpable masses. PELVIC EXAM: Normal external genitalia with moderate atrophy. Cervix and vagina appear normal with moderate atrophy. There is no unusual discharge. There is no evidence of prolapse. The uterus is midposition, nongravid size and nontender. There are no palpable adnexal masses or tenderness. RECTAL EXAM: Rectovaginal exam is negative for mass or tenderness and is negative for occult blood. EXTREMITIES: Nontender. IMPRESSION: 1. 74-year-old menopausal female with normal gynecologic exam. 2. History of osteoporosis status post previous Tymlos use. PLAN: 1. Pap smears have been discontinued. 2. Self breast awareness was discussed with the patient. We have also discussed symptoms associated with inflammatory breast cancer. 3. Mammogram was done today. 4. PHQ-2 questionaire was given and she scores 0. This is a negative screen for depression. 5. Osteoporosis management was discussed. I have stressed the importance of adequate calcium, vitamin D and regular exercise. Recommended amounts of calcium and vitamin D were also discussed. He understands medications are lakeisha ilable to help reduce the risk for bone fractures. We will plan on repeating the bone density test in 1 year. 6. She was advised to return in one year for her annual well woman exam.
== END ==
LOC: WWCWWP 12:41
PROVIDERS: ATTEND Obstetrics & Gynecology
DX: Z12.31 Encounter for screening mammogram for malignant neoplasm of breast (principal); M81.0 Age-related osteoporosis without current pathological fracture; Z78.0 Asymptomatic menopausal state; Z87.891 Personal history of nicotine dependence
CPT/HCPCS: 77063; 77067

== ENCOUNTER 2024-08-17 08:34 | Inpatient (IN) | payer MEDICARE ==
[2024-08-17] MEDS ORDERED: VANCOMYCIN IV PER PHARMACY 1 EACH MISC MISCELLANE PRN (09:21)
--- NOTE | 2024-08-17 10:11 | XR ---
EXAMINATION TYPE: XR foot complete RT DATE OF EXAM: 08/17/2024 10:02 AM COMPARISON: None. CLINICAL INDICATION: Female, 74 years old with history of osteomyelitis, TECHNIQUE: 3 view(s) obtained. FINDINGS: No acute fractures evident. There is changes hammertoes present on the lateral projection. There is l ateral deviation of the distal portion proximal phalanx middle digit right foot which appears chronic . Structures are osteopenic soft tissue swelling is over the proximal and distal fifth metatarsal regio n. No suspicious cortical erosion to suggest underlying osteomyelitis identified. Plantar and [place] s tendon calcaneal heel spurs are present IMPRESSION: 1. Osteopenia. 2. No suspicious acute cortical erosions to suggest osteomyelitis by x-ray. Three-phase bone scan can be performed for sufficient clinical suspicion. 3. Chronic deviation of the third digit and hammertoes. [facility], , 08/17/2024 10:09 AM
[2024-08-17] MEDS: AMPICILLIN-SULBACTAM 3 GM in SODIUM CHLORIDE 0.9% 100 ML IVPB STA (10:50)
[2024-08-17] MEDS: VANCOMYCIN 1,250 MG in SODIUM CHLORIDE 0.9% 250 ML IVPB STA (10:50)
[2024-08-17 11:26] LABS: ALT 46 U/L (4-34); AST 95 U/L (14-36); African American GFR (CKD) 73 (>60 ml/min/1.73 sqM); Albumin 4.6 g/dL (3.5-5.0); Alkaline Phosphatase 108 U/L (38-126); Anion Gap 7 mmol/L; Blood Urea Nitrogen 15 mg/dL (7-17); C Reactive Protein <0.5 mg/dL (<1.0); Calcium 9.5 mg/dL (8.4-10.2); Carbon Dioxide 26 mmol/L (22-30); Chloride 107 mmol/L (98-107); Glucose 125 mg/dL (74-99); Non-African American GFR(CKD) 63 (>60 ml/min/1.73 sqM); Potassium 4.1 mmol/L (3.5-5.1); Sodium 140 mmol/L (137-145); Total Bilirubin 0.7 mg/dL (0.2-1.3); Total Protein 7.9 g/dL (6.3-8.2)
--- NOTE | 2024-08-17 12:14 | ED ---
General Adult HPI - General Chief complaint: Wound/Laceration Stated complaint: Right foot infection Time Seen by Provider: 08/17/24 08:45 Source: patient Mode of arrival: ambulatory Limitations: no limitations - History of Present Illness Initial comments: 74-year-old female presents to the emergency department reporting right foot wound. She is a patient of Dr. Delatorre. She had surgery on June 25. Over the past week she has had pain at the surgical site. She noted that it became red and swollen. She saw Dr. Avina today in office. She sent her into the emergency department for IV antibiotics. The senior java software developer plans to do surgery on Friday to debride the area. She is not currently on any oral antibiotics. She denies any fevers. She has not been taking anything for pain at home. She does have a history of recurrent sepsis from different infections and therefore patient is concerned she could get significantly sick. No history of MRSA. No other alleviating, precipitating or modifying factors - Related Data Home Medications Medication Instructions Recorded Confirmed Pantoprazole Sodium [Protonix] 40 mg PO DAILY 06/29/14 08/17/24 metHOTREXate sodium [Methotrexate] 12.5 mg PO TU 07/20/19 08/17/24 Folic Acid 1 mg PO DAILY 11/28/19 08/17/24 Metoprolol Succinate (ER) [Toprol 25 mg PO DAILY 10/24/20 08/17/24 XL] Zinc 50 mg PO DAILY 10/24/20 08/17/24 Cholecalciferol (Vitamin D3) 125 mcg PO DAILY 05/29/21 08/17/24 [Vitamin D3 (125 MCG = 5,000 IU)] Cyanocobalamin (Vitamin B-12) 1,000 mcg PO DAILY 10/20/22 08/17/24 [Vitamin B-12] Losartan Potassium [Cozaar] 25 mg PO DAILY 10/20/22 08/17/24 Escitalopram Oxalate [Lexapro] 10 mg PO DAILY 08/17/24 08/17/24 Spironolactone 12.5 mg PO DAILY 08/17/24 08/17/24 Total Beets 1 dose PO DAILY 08/17/24 08/17/24 Previous Rx's Medication Instructions Recorded Clopidogrel [Plavix] 75 mg PO DAILY #30 tab 07/25/23 Rosuvastatin [Crestor] 20 mg PO DAILY #30 tablet 07/25/23 Doxycycline [Vibramycin] 100 mg PO BID 7 Days #14 capsule 08/18/24 Allergies Allergy/AdvReac Type Severity Reaction Status Date / Time No Known Allergies Allergy Verified 08/17/24 13:15 Review of Systems ROS Statement: Those systems with pertinent positive or pertinent negative responses have been documented in the HPI. ROS Other: All systems not noted in ROS Statement are negative. Past Medical History Past Medical History: Atrial Fibrillation, CVA/TIA, GERD/Reflux, Hyperlipidemia, Musculoskeletal Disorder, Osteoarthritis (OA), Rheumatoid Arthritis (RA) Additional Past Medical History / Comment(s): Hx TIA 07/25/23 and also 2 yrs ago, no residual effects. Compression fractures X9, has stimulator, non functioning at this time. 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 History of Any Multi-Drug Resistant Organisms: None Reported Past Surgical History: Back Surgery, Cardiac Ablation, Cardiac Valve Replacement, Joint Replacement, Orthopedic Surgery, Tonsillectomy Additional Past Surgical History / Comment(s): CATARATS REMOVED WITH LENS IMPLANTS, 3 NODULES REMOVED FROM RIGHT FOOT, bone in right foot removed, colonoscopy, kyphoplasty X2, cardiac ablation X2, epidural steroid injections for back pain, MITRAL VALVE REPLACEMENT, with sepsis after, Story-Maze A-fib procedure, pain stimulator in back, right shoulder rotator cuff repair, right hip replacement. Past Anesthesia/Blood Transfusion Reactions: No Reported Reaction Additional Past Anesthesia/Blood Transfusion Reaction / Comment(s): . Past Psychological History: No Psychological Hx Reported Smoking Status: Former smoker Past Alcohol Use History: Occasional Past Drug Use History: Marijuana - Past Family History Father Family Medical History: Cancer, Neurologic Disorder Additional Family Medical History / Comment(s): Prostate cancer. ARRYTHMIA, CORNEAL IMPLANTS, LT EYE BLIND, PARKINSONS, FATHER HAS . Mother Family Medical History: Cancer, Coronary Artery Disease (CAD), Diabetes Mellitus, Eye Disorder, Myocardial Infarction ([place]) Additional Family Medical History / Comment(s): Uterine cancer. CATARACTS, DETATCHED RETINA, GLAUCOMA, MACULAR DEGENERATION, STENTS, BOWEL RESECTION FOR DIVERTICULITIS, BILATERAL KNEE REPLACEMENT. . Brother(s) Family Medical History: Cancer, CVA/TIA Additional Family Medical History / Comment(s): One brother had a stroke at age 65. A different brother had lung cancer. Sister(s) Family Medical History: No Reported History General Exam Limitations: no limitations General appearance: alert, in no apparent distress Head exam: Present: atraumatic, normocephalic, normal inspection Eye exam: Present: normal appearance, PERRL, EOMI. Absent: scleral icterus, conjunctival injection, periorbital swelling ENT exam: Present: normal exam, mucous membranes moist Neck exam: Present: normal inspection. Absent: tenderness, meningismus, lymphadenopathy Respiratory exam: Present: normal lung sounds bilaterally. Absent: respiratory distress, wheezes, rales, rhonchi, stridor Cardiovascular Exam: Present: regular rate, normal rhythm, normal heart sounds. Absent: systolic murmur, diastolic murmur, rubs, gallop, clicks GI/Abdominal exam: Present: soft, normal bowel sounds. Absent: distended, tenderness, guarding, rebound, rigid Extremities exam: Present: tenderness (Redness, swelling near right lateral forefoot. No active drainage. Previously well-healed incision), normal capillary refill. Absent: pedal edema, joint swelling, calf tenderness Back exam: Present: normal inspection Neurological exam: Present: alert, oriented X3, CN II-XII intact Psychiatric exam: Present: normal affect, normal mood Skin exam: Present: warm, dry, intact, normal color. Absent: rash Course Vital Signs 08/17/24 08/17/24 08/17/24 08:39 10:42 12:48 Temperature 97.7 F 97.7 F 97.5 F L Pulse Rate 71 91 87 Respiratory 18 16 18 Rate Blood Pressure 131/82 111/62 103/75 O2 Sat by Pulse 98 Oximetry 08/17/24 08/17/24 08/17/24 13:57 16:23 17:17 Temperature 98.0 F Pulse Rate 83 91 87 Respiratory 18 18 18 Rate Blood Pressure 124/69 117/70 128/97 O2 Sat by Pulse 96 98 97 Oximetry Medical Decision Making - Medical Decision Making Was pt. sent in by a medical professional or institution (ANTHONY [place]ura, INDUSTRIAL GAS SERVICE HELPER, urgent care, hospital, or prison...) When possible be specific @ -Patient sent in from her senior java software developer Did you speak to anyone other than the patient for history (EMS, parent, family, police, friend...)? What history was obtained from this source @ -No Did you review nursing and triage notes (agree or disagree)? Why? @ -I reviewed and agree with nursing and triage notes Were old charts reviewed (outside hosp., previous admission, EMS record, old EKG, old radiological studies, urgent care reports/EKG's, prison records)? Report findings @ -No old charts were reviewed Differential Diagnosis (chest pain, altered mental status, abdominal pain women, abdominal pain men, vaginal bleeding, weakness, fever, dyspnea, syncope, headache, dizziness, GI bleed, back pain, seizure, CVA, palpatations, mental health, musculoskeletal)? @ -Cellulitis, abscess, osteomyelitis EKG interpreted by me (3pts min.). @ -Not done X-rays interpreted by me (1pt min.). @ -Yes and demonstrates no abnormalities CT interpreted by me (1pt min.). @ -None done U/S interpreted by me (1pt. min.). @ -None done What testing was considered but not performed or refused? (CT, X-rays, U/S, labs)? Why? @ -None What meds were considered but not given or refused? Why? @ -None Did you discuss the management of the patient with other professionals (professionals i.e. DrFrederic, PA, INDUSTRIAL GAS SERVICE HELPER, lab, RT, psych nurse, adoption social worker, color tester, teacher, event security officer, disability case manager)? Give summary @ -Discussed case with Dr. Padilla Was smoking cessation discussed for >3mins.? @ -No Was critical care preformed (if so, how long)? @ -No Were there social determinants of health that impacted care today? How? (Homelessness, low income, unemployed, alcoholism, drug addiction, transportation, low edu. Level, literacy, decrease access to med. care, detention, rehab)? @ -No Was there de-escalation of care discussed even if they declined (Discuss DNR or withdrawal of care, Hospice)? DNR status @ -No What co-morbidities impacted this encounter? (DM, HTN, Smoking, COPD, CAD, Cancer, CVA, ARF, Chemo, Hep., AIDS, mental health diagnosis, sleep apnea, morbid obesity)? @ -None Was patient admitted / discharged? Hospital course, mention meds given and route, prescriptions, significant lab abnormalities, going to OR and other pertinent info. @ -Upon arrival patient seen and evaluated in bed 19. Thorough history and physical exam was performed. IV access was established. Laboratory studies were conducted. X-ray of the foot was performed. Patient was admitted. Spoke with Dr. padilla for the admssion. Undiagnosed new problem with uncertain prognosis? @ -No Drug Therapy requiring intensive monitoring for toxicity (Heparin, Nitro, Insulin, Cardizem)? @ -No Were any procedures done? @ -No Diagnosis/symptom? @ -Acute right foot pain, acute right foot cellulitis Acute, or Chronic, or Acute on Chronic? @ -Acute Uncomplicated (without systemic symptoms) or Complicated (systemic symptoms)? @ -Uncomplicated Side effects of treatment? @ -No Exacerbation, Progression, or Severe Exacerbation? @ -No Poses a threat to life or bodily function? How? (Chest pain, [place], [place], pneumonia, PE, COPD, DKA, ARF, appy, cholecystitis, CVA, Diverticulitis, Homicidal, Suicidal, threat to staff... and all critical care pts) @ -No - Lab Data Result diagrams: 08/18/24 04:19 08/18/24 04:19 Lab Results 08/17/24 08/17/24 08/17/24 Range/Units 10:37 10:49 10:49 WBC 6.5 (3.8-10.6) k/uL RBC 3.77 L INDUSTRIAL GAS SERVICE HELPER (3.80-5.40) m/uL Hgb 11.9 (11.4-16.0) gm/dL Hct 35.7 (34.0-46.0) % MCV 94.7 (80.0-100.0) fL MCH 31.5 (25.0-35.0) pg MCHC 33.2 (31.0-37.0) g/dL RDW 15.0 (11.5-15.5) % Plt Count 184 (150-450) k/uL MPV 8.2 Neutrophils % 65 % Lymphocytes % 19 % Monocytes % 8 % Eosinophils % 5 % Basophils % 1 % Neutrophils # 4.2 (1.3-7.7) k/uL Lymphocytes # 1.3 (1.0-4.8) k/uL Monocytes # 0.5 (0-1.0) k/uL Eosinophils # 0.3 (0-0.7) k/uL Basophils # 0.0 (0-0.2) k/uL ESR Cancelled 35 H Sodium 140 (137-145) mmol/L Potassium 4.1 (3.5-5.1) mmol/L Chloride 107 (98-107) mmol/L Carbon Dioxide 26 (22-30) mmol/L Anion Gap 7 mmol/L BUN 15 (7-17) mg/dL Creatinine 0.90 (0.52-1.04) mg/dL Est GFR (CKD-EPI)AfAm 73 (>60 ml/min/1.73 sqM) Est GFR (CKD-EPI)NonAf 63 (>60 ml/min/1.73 sqM) Glucose 125 H (74-99) mg/dL Calcium 9.5 (8.4-10.2) mg/dL Total Bilirubin 0.7 (0.2-1.3) mg/dL AST 95 H (14-36) U/L ALT 46 H (4-34) U/L Alkaline Phosphatase 108 (38-126) U/L C-Reactive Protein <0.5 (<1.0) mg/dL Total Protein 7.9 (6.3-8.2) g/dL Albumin 4.6 (3.5-5.0) g/dL Disposition Clinical Impression: Cellulitis of right foot Disposition: ADMITTED IP TO THIS [facility] Condition: Stable Is patient prescribed a controlled substance at d/c from ED?: No Time of Disposition: 12:17 Decision to Admit Reason: Admit from EC Decision Date: 08/17/24 Decision Time: 12:17
[2024-08-17 12:17] LABS: Basophils % (A) 1 %; Eosinophils # (A) 0.3 k/uL (0-0.7); Eosinophils % (A) 5 %; HCT 35.7 % (34.0-46.0); HGB 11.9 gm/dL (11.4-16.0); Lymphocytes # (A) 1.3 k/uL (1.0-4.8); Lymphocytes % (A) 19 %; MCH 31.5 pg (25.0-35.0); MCHC 33.2 g/dL (31.0-37.0); MCV 94.7 fL (80.0-100.0); Mean Platelet Volume 8.2; Monocytes # (A) 0.5 k/uL (0-1.0); Monocytes % (A) 8 %; Neutrophils # (A) 4.2 k/uL (1.3-7.7); Neutrophils % (A) 65 %; Platelet Count 184 k/uL (150-450); RBC 3.77 m/uL (3.80-5.40); WBC 6.5 k/uL (3.8-10.6)
[2024-08-17] MEDS ORDERED: NALOXONE 0.4 MG/ML 1 ML VIAL IV PRN (12:17)
--- NOTE | 2024-08-17 13:39 | P.HPIM ---
History of Present Illness 71-year-old female was sent in by her lab analyst for right foot wound infection. Patient apparently had a fall and debridement on June 25 and was seen in lab analyst office and she is believed to have infected wound because of which patient was sent in here patient was started on Unasyn and vancomycin patient denied any history of MRSA in the past patient denied any fever chills, WBC count is pending. Patient does have history of atrial fibrillation although not on any anticoagulation patient does take Plavix which is being held for possible debridement. REVIEW OF SYSTEMS: All other systems are negative except those mentioned in the HPI PHYSICAL EXAMINATION: GENERAL: The patient is alert and oriented x3, not in any acute distress. Well developed, well nourished. HEENT: Pupils are round and equally reacting to light. EOMI. No scleral icterus. No conjunctival pallor. Normocephalic, atraumatic. No pharyngeal erythema. No thyromegaly. CARDIOVASCULAR: S1 and S2 present. No murmurs, rubs, or gallops. PULMONARY: Chest is clear to auscultation, no wheezing or crackles. ABDOMEN: Soft, nontender, nondistended, normoactive bowel sounds. No palpable organomegaly. MUSCULOSKELETAL: No joint swelling or deformity. Right ankle is wrapped with an Dionicio bandage EXTREMITIES: No cyanosis, clubbing, or pedal edema. NEUROLOGICAL: Gross neurological examination did not reveal any focal deficits. SKIN: No rashes. Assessment and plan -Right foot wound infection: Podiatry was consulted infectious disease will be consulted patient will be continued on Unasyn and vancomycin probably vancomycin can be discontinued as she does not have any MRSA infection. Patient may need debridement because of which I am holding Plavix at this time. X-ray of the foot did not show any osteomyelitis -Paroxysmal atrial fibrillation history of ablation presently not on any anticoagulation patient is on beta-phil which will be continued -Hypertension patient is hypotensive hold off on losartan -Hyperlipidemia DVT prophylaxis: Lovenox Past Medical History Past Medical History: Atrial Fibrillation, CVA/TIA, GERD/Reflux, Hyperlipidemia, Musculoskeletal Disorder, Osteoarthritis (OA), Rheumatoid Arthritis (RA) Additional Past Medical History / Comment(s): Hx TIA 07/25/23 and also 2 yrs ago, no residual effects. Compression fractures X9, has stimulator, non functioning at this time. 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 History of Any Multi-Drug Resistant Organisms: None Reported Past Surgical History: Back Surgery, Cardiac Ablation, Cardiac Valve Replacement, Joint Replacement, Orthopedic Surgery, Tonsillectomy Additional Past Surgical History / Comment(s): CATARATS REMOVED WITH LENS IMPLANTS, 3 NODULES REMOVED FROM RIGHT FOOT, bone in right foot removed, colonoscopy, kyphoplasty X2, cardiac ablation X2, epidural steroid injections for back pain, MITRAL VALVE REPLACEMENT, with sepsis after, Story-Maze A-fib procedure, pain stimulator in back, right shoulder rotator cuff repair, right hip replacement. Past Anesthesia/Blood Transfusion Reactions: No Reported Reaction Additional Past Anesthesia/Blood Transfusion Reaction / Comment(s): . Past Psychological History: No Psychological Hx Reported Smoking Status: Former smoker Past Alcohol Use History: Occasional Past Drug Use History: Marijuana - Past Family History Father Family Medical History: Cancer, Neurologic Disorder Additional Family Medical History / Comment(s): Prostate cancer. ARRYTHMIA, CORNEAL IMPLANTS, LT EYE BLIND, PARKINSONS, FATHER HAS . Mother Family Medical History: Cancer, Coronary Artery Disease (CAD), Diabetes Mellitus, Eye Disorder, Myocardial Infarction ([place]) Additional Family Medical History / Comment(s): Uterine cancer. CATARACTS, DETATCHED RETINA, GLAUCOMA, MACULAR DEGENERATION, STENTS, BOWEL RESECTION FOR DIVERTICULITIS, BILATERAL KNEE REPLACEMENT. . Brother(s) Family Medical History: Cancer, CVA/TIA Additional Family Medical History / Comment(s): One brother had a stroke at age 65. A different brother had lung cancer. Sister(s) Family Medical History: No Reported History Medications and Allergies Home Medications Medication Instructions Recorded Confirmed Type Pantoprazole Sodium [Protonix] 40 mg PO DAILY 06/29/14 08/17/24 History metHOTREXate sodium [Methotrexate] 12.5 mg PO TU 07/20/19 08/17/24 History Folic Acid 1 mg PO DAILY 11/28/19 08/17/24 History Metoprolol Succinate (ER) [Toprol 25 mg PO DAILY 10/24/20 08/17/24 History XL] Zinc 50 mg PO DAILY 10/24/20 08/17/24 History Cholecalciferol (Vitamin D3) 125 mcg PO DAILY 05/29/21 08/17/24 History [Vitamin D3 (125 MCG = 5,000 IU)] Cyanocobalamin (Vitamin B-12) 1,000 mcg PO DAILY 10/20/22 08/17/24 History [Vitamin B-12] Losartan Potassium [Cozaar] 25 mg PO DAILY 10/20/22 08/17/24 History Clopidogrel [Plavix] 75 mg PO DAILY #30 tab 07/25/23 08/17/24 Rx Rosuvastatin [Crestor] 20 mg PO DAILY #30 tablet 07/25/23 08/17/24 Rx Escitalopram Oxalate [Lexapro] 10 mg PO DAILY 08/17/24 08/17/24 History Spironolactone 12.5 mg PO DAILY 08/17/24 08/17/24 History Total Beets 1 dose PO DAILY 08/17/24 08/17/24 History Allergies Allergy/AdvReac Type Severity Reaction Status Date / Time No Known Allergies Allergy Verified 08/17/24 13:15 Physical Exam Vitals: Vital Signs Temp Pulse Resp BP Pulse Ox 08/17/24 12:48 97.5 F L 87 18 103/75 08/17/24 10:42 97.7 F 91 16 111/62 08/17/24 08:39 97.7 F 71 18 131/82 98 Intake and Output 08/16/24 08/17/24 08/17/24 22:59 06:59 14:59 Other: Weight 62.596 kg Results CBC & Chem 7: 08/17/24 10:49 08/17/24 10:49 Labs: Abnormal Lab Results - Last 24 Hours (Table) 08/17/24 08/17/24 Range/Units 10:37 10:49 RBC 3.77 L (3.80-5.40) m/uL Glucose 125 H (74-99) mg/dL AST 95 H (14-36) U/L ALT 46 H (4-34) U/L
[2024-08-17] MEDS: metHOTREXate sodium 2.5 MG TAB PO SCH (13:55)
[2024-08-17 16:04] LABS: Erythrocyte Sedimentation Rate 35 mm/Hr (0-30)
[2024-08-17] MEDS: CEFEPIME 2 GM in SODIUM CHLORIDE 0.9% 100 ML IVPB SCH (16:13)
[2024-08-17] MEDS: ACETAMINOPHEN TAB 325 MG TAB PO PRN (18:12)
--- NOTE | 2024-08-17 23:16 | P.CONS ---
History of Present Illness - Reason for Consult Consult date: 08/17/24 Right foot cellulitis Requesting physician: Gabriella Ortega - Chief Complaint Right foot pain swelling and redness x 1 week - History of Present Illness Patient is a 74-year-old female with a past medical history significant for hyperlipidemia CVA TIA reflux atrial fibrillation rheumatoid arthritis patient apparently recently did have a surgery done for the right foot lateral border as the patient mention he did have a bony outgrowth that has been resected surgery was done on June 25, 2024 for the last 1 week patient started having increasing pain at the incision which was healed patient described the pain to be sharp moderate to severe intensity without radiation and also mention increasing swelling redness to the right foot lateral border for the patient was evaluated by her therapeutic specialist patient apparently did have aspiration of her pulse from the wound bed which has been sent for culture and the patient was sent to the hospital for IV antibiotic therapy patient on presentation to the hospital was afebrile and no fever have been recorded subsequently patient was not tachycardic hypotensive or hypoxic patient did have white count of 6.5 creatinine 0.90 patient received a dose of Unasyn has been started on vancomycin infectious disease was consulted for further management of antibiotic therapy patient did have a x-ray of the foot no suspicious acute cortical erosion to suggest osteomyelitis Review of Systems Positive point and negatives has been mentioned in the HPI, complete review of systems was performed and all other systems are negative Past Medical History Past Medical History: Atrial Fibrillation, CVA/TIA, GERD/Reflux, Hyperlipidemia, Musculoskeletal Disorder, Osteoarthritis (OA), Rheumatoid Arthritis (RA) Additional Past Medical History / Comment(s): Hx TIA 07/25/23 and also 2 yrs ago, no residual effects. Compression fractures X9, has stimulator, non functioning at this time. 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 History of Any Multi-Drug Resistant Organisms: None Reported Past Surgical History: Back Surgery, Cardiac Ablation, Cardiac Valve Replacemen t, Joint Replacement, Orthopedic Surgery, Tonsillectomy Additional Past Surgical History / Comment(s): CATARATS REMOVED WITH LENS IMPLANTS, 3 NODULES REMOVED FROM RIGHT FOOT, bone in right foot removed, colonoscopy, kyphoplasty X2, cardiac ablation X2, epidural steroid injections for back pain, MITRAL VALVE REPLACEMENT, with sepsis after, Story-Maze A-fib procedure, pain stimulator in back, right shoulder rotator cuff repair, right hip replacement. Past Anesthesia/Blood Transfusion Reactions: No Reported Reaction Additional Past Anesthesia/Blood Transfusion Reaction / Comm: . Past Psychological History: No Psychological Hx Reported Smoking Status: Former smoker Past Alcohol Use History: Occasional Past Drug Use History: Marijuana - Past Family History Father Family Medical History: Cancer, Neurologic Disorder Additional Family Medical History / Comment(s): Prostate cancer. ARRYTHMIA, CORNEAL IMPLANTS, LT EYE BLIND, PARKINSONS, FATHER HAS . Mother Family Medical History: Cancer, Coronary Artery Disease (CAD), Diabetes Mellitus, Eye Disorder, Myocardial Infarction ([place]) Additional Family Medical History / Comment(s): Uterine cancer. CATARACTS, DETATCHED RETINA, GLAUCOMA, MACULAR DEGENERATION, STENTS, BOWEL RESECTION FOR DIVERTICULITIS, BILATERAL KNEE REPLACEMENT. . Brother(s) Family Medical History: Cancer, CVA/TIA Additional Family Medical History / Comment(s): One brother had a stroke at age 65. A different brother had lung cancer. Sister(s) Family Medical History: No Reported History Medications and Allergies Home Medications Medication Instructions Recorded Confirmed Type Pantoprazole Sodium [Protonix] 40 mg PO DAILY 06/29/14 08/17/24 History metHOTREXate sodium [Methotrexate] 12.5 mg PO TU 07/20/19 08/17/24 History Folic Acid 1 mg PO DAILY 11/28/19 08/17/24 History Metoprolol Succinate (ER) [Toprol 25 mg PO DAILY 10/24/20 08/17/24 History XL] Zinc 50 mg PO DAILY 10/24/20 08/17/24 History Cholecalciferol (Vitamin D3) 125 mcg PO DAILY 05/29/21 08/17/24 History [Vitamin D3 (125 MCG = 5,000 IU)] Cyanocobalamin (Vitamin B-12) 1,000 mcg PO DAILY 10/20/22 08/17/24 History [Vitamin B-12] Losartan Potassium [Cozaar] 25 mg PO DAILY 10/20/22 08/17/24 History Clopidogrel [Plavix] 75 mg PO DAILY #30 tab 07/25/23 08/17/24 Rx Rosuvastatin [Crestor] 20 mg PO DAILY #30 tablet 07/25/23 08/17/24 Rx Escitalopram Oxalate [Lexapro] 10 mg PO DAILY 08/17/24 08/17/24 History Spironolactone 12.5 mg PO DAILY 08/17/24 08/17/24 History Total Beets 1 dose PO DAILY 08/17/24 08/17/24 History Allergies Allergy/AdvReac Type Severity Reaction Status Date / Time No Known Allergies Allergy Verified 08/17/24 13:15 Physical Exam Vitals: Vital Signs Temp Pulse Resp BP Pulse Ox 08/17/24 12:48 97.5 F L 87 18 103/75 08/17/24 10:42 97.7 F 91 16 111/62 08/17/24 08:39 97.7 F 71 18 131/82 98 Intake and Output 08/16/24 08/17/24 08/17/24 22:59 06:59 14:59 Other: Weight 62.596 kg GENERAL DESCRIPTION: Elderly female lying in bed, no distress. No tachypnea or accessory muscle of respiration use. HEENT: Shows Pallor , no scleral icterus. Oral mucous membrane is dry. No pharyngeal erythema or thrush NECK: Trachea central, no thyromegaly. LUNGS: Unlabored breathing. Clear to auscultation anteriorly. No wheeze or crackle. HEART: S1, S2, regular rate and rhythm. No loud murmur ABDOMEN: Soft, no tenderness , guarding or rigidity, no organomegaly EXTREMITIES: Right foot lateral border incision is currently healed he did have some swelling and tenderness to palpation no drainage SKIN: No rash, no masses palpable. NEUROLOGICAL: The patient is awake, alert, oriented x3, mood and affect normal. Results CBC & Chem 7: 08/17/24 10:49 08/17/24 10:49 Labs: Abnormal Lab Results - Last 24 Hours (Table) 08/17/24 08/17/24 Range/Units 10:37 10:49 RBC 3.77 L (3.80-5.40) m/uL Glucose 125 H (74-99) mg/dL AST 95 H (14-36) U/L ALT 46 H (4-34) U/L Assessment and Plan (1) Abscess of right foot Current Visit: Yes Status: Acute Code(s): L02.611 - CUTANEOUS ABSCESS OF RIGHT FOOT SNOMED Code(s): 80548617165386715 (2) Cellulitis of right foot Current Visit: Yes Status: Acute Code(s): L03.115 - CELLULITIS OF RIGHT LOWER LIMB SNOMED Code(s): 77167383249994164 Plan: 1patient presented to hospital with decreasing pain and swelling redness right foot lateral border patient has been sent to the hospital by her surgeon who apparently have aspirated pus from the previous surgical bed and will need to cover for the resistant gram-positive as well as gram-negative pathogen. 2vancomycin pharmacy to dose target trough of 15 while watching kidney function and Vanco trough closely will add cefepime for gram-negative coverage. 3await evaluation by her surgeon for possible exploration and determine the depth of infection and try to follow-up on the culture already obtained at her surgeon's office. We will follow on clinical condition and cultures to further adjust medication if needed Thank you for this consultation we will follow the patient along with you Dictation was produced using [employer] dictation software. please excuse any gra mmatical, word or spelling errors. Time with Patient: Greater than 30
[2024-08-18 01:33] VITALS: RESP 16
[2024-08-18 07:29] VITALS: BP 132/69; PULSE 66; TEMP 98.1
[2024-08-18] MEDS: ATORVASTATIN 40 MG TAB PO SCH (08:28)
[2024-08-18] MEDS: PANTOPRAZOLE 40 MG TABLET PO SCH (08:28)
[2024-08-18] MEDS: METOPROLOL SUCCINATE (ER) 25 MG TAB.ER.24H PO SCH (08:28)
[2024-08-18] MEDS: CHOLECALCIFEROL 125 MCG (5000 IU) TABLET PO SCH (08:29)
[2024-08-18] MEDS: VANCOMYCIN 1,250 MG in SODIUM CHLORIDE 0.9% 250 ML IVPB SCH (08:51)
[2024-08-18 09:23] LABS: Basophils # (A) 0.06 X 10*3/uL (0.00-0.10); Basophils % (A) 1.2 %; Eosinophils # (A) 0.49 X 10*3/uL (0.04-0.35); Eosinophils % (A) 9.6 %; HCT 33.2 % (37.2-46.3); HGB 10.8 g/dL (12.0-15.0); Lymphocytes # (A) 1.15 X 10*3/uL (0.90-5.00); Lymphocytes % (A) 22.4 %; MCH 30.9 pg (27.0-32.0); MCHC 32.5 g/dL (32.0-37.0); MCV 95.1 FL (80.0-97.0); Mean Platelet Volume 11.1 FL (9.5-12.2); Monocytes # (A) 0.78 X 10*3/uL (0.20-1.00); Monocytes % (A) 15.2 %; NRBC Per 100 WBC 0 X 10*3/uL (0.00-0.01); Neutrophils # (A) 2.63 X 10*3/uL (1.80-7.70); Neutrophils % (A) 51.2 %; Platelet Count 158 X 10*3/uL (140-440); RBC 3.49 X 10*6/uL (4.10-5.20); RDW 15.9 % (11.5-14.5); WBC 5.13 X 10*3/uL (4.50-10.00)
[2024-08-18 09:34] LABS: Blood Urea Nitrogen 13.5 mg/dL (9.0-27.0); Carbon Dioxide 21.7 mmol/L (21.6-31.8); Chloride 108 mmol/L (96-109); Glucose 98 mg/dL (70-110); Potassium 4.3 mmol/L (3.5-5.5); Sodium 141 mmol/L (135-145)
--- NOTE | 2024-08-18 13:43 | P.CON ---
Consult Note - . Consult date: 08/18/24 Assessment/Plan:: CC: abscess right foot HPI: Patient was seen in my office yesterday where I performed an in office debridement and drainage of abscess. She has had long standing history of sepsis and she was worried about infection. She went to the ER for IV abx. She states in the last 24 hours due to office draining and IV abx she feels significantly improved. She rates her pain 3/10 and is shocked with her progress. Lower Extremity Exam: Vasc: DP/PT pulse 2/4 to RLE. CFT < 3 seconds. NO extensive edema or erythema noted today. Greatly improved in 24 hours. Derm: Eschar noted along lateral 5th metatarsal today was debrided and open ul ceration noted measures 0.5 x 0.6 x 0.4cm. No purulence expressed. No proximal streaking and no further abscess material. Neuro: Light touch sensation intact to the digits. MSK: Mild to moderate pain with palpation lateral right foot greatly improved in 24 hours. Assessment: Sterile suture abscess right foot Right foot pain Plan: With patient verbal consent the site was cleansed with betadine. Sterile 15 blade used to bedride all eschar and full thcikness ulceration to the level of subcutaneous tissue. NO purulence noted. Betadine, adaptic, gauze and CATHRYN bandage applied. Patiet clear to DC from podiatric standpoint on oral abx. Spoke with medicine team. She will follow-up in wound care in 1 week with me. Kate Avina, FRANK, AACFAS
[2024-08-18] MEDS ORDERED: CEFEPIME 2 GM in SODIUM CHLORIDE 0.9% 100 ML IVPB SCH (21:00)
--- NOTE | 2024-08-19 14:32 | P.PN ---
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 On today's evaluation that is 08/18/2024,the patient denies any fever or any chills, patient is breathing comfortably on room air, the patient denies chest pain shortness of breath and no significant cough, patient denies abdominal pain, no nausea vomiting or diarrhea. Patient pain to the right foot lateral border has decreased and no drainage. Patient white count is 5.13 creatinine 0.9 ESR is 35 blood cultures are pending Objective - Vital Signs Vital signs: Vital Signs Temp 98.1 F 08/18/24 07:02 Pulse 66 08/18/24 07:02 Resp 16 08/18/24 07:02 BP 132/69 08/18/24 07:02 Pulse Ox 98 08/18/24 07:02 FiO2 Intake & Output 08/17/24 08/18/24 08/18/24 18:59 06:59 18:59 Intake Total 240 100 Balance 240 100 Weight 62.596 kg Intake: Intake, IV Titration 100 Amount Cefepime 2 gm In Sodium 100 Chloride 0.9% 100 ml @ 25 mls/hr IVPB Q8HR [facility] Rx# :[id number] Oral 240 Other: Voiding Method Toilet Toilet # Voids 1 - Exam GENERAL DESCRIPTION: An elderly female up in the room in no distress RESPIRATORY SYSTEM: Unlabored breathing , decreased breath sounds at bases HEART: S1 S2 regular rate and rhythm , ABDOMEN: Soft , no tenderness EXTREMITIES: Right foot is currently dressed - Labs CBC & Chem 7: 08/18/24 04:19 08/18/24 04:19 Labs: Abnormal Lab Results - Last 24 Hours (Table) 08/17/24 08/17/24 08/17/24 Range/Units 10:37 10:49 10:49 RBC 3.77 L (3.80-5.40) m/uL Hgb (12.0-15.0) g/dL Hct (37.2-46.3) % RDW (11.5-14.5) % Eosinophils # (0.04-0.35) X 10*3/uL ESR 35 H (0-30) mm/Hr Glucose 125 H (74-99) mg/dL AST 95 H (14-36) U/L ALT 46 H (4-34) U/L // Range/Units 04:19 RBC 3.49 L (3.80-5.40) m/uL Hgb 10.8 L (12.0-15.0) g/dL Hct 33.2 L (37.2-46.3) % RDW 15.9 H (11.5-14.5) % Eosinophils # 0.49 H (0.04-0.35) X 10*3/uL ESR (0-30) mm/Hr Glucose (74-99) mg/dL AST (14-36) U/L ALT (4-34) U/L Assessment and Plan (1) Abscess of right foot Status: Acute Code(s): L02.611 - CUTANEOUS ABSCESS OF RIGHT FOOT SNOMED Code(s): 30840475111009306 (2) Cellulitis of right foot Status: Acute Code(s): L03.115 - CELLULITIS OF RIGHT LOWER LIMB SNOMED Code(s): 65374733437368002 Plan: 1patient presented to hospital with decreasing pain and swelling redness right foot lateral border patient has been sent to the hospital by her surgeon who apparently have aspirated pus from the previous surgical bed and will need to cover for the resistant gram-positive as well as gram-negative pathogen. 2patient has been treated with vancomycin pharmacy to dose and cefepime during this admission 3patient apparently has been evaluated by her podiatry and did have some bedside debridement and mention evidence of any deep infection and want the patient to be discharged on oral doxycycline as reported by the HEAD OF SALES PROMOTION for admitting who is working on discharge, patient vies if any worsening swelling redness pain drainage or fever on oral antibiotic let us know right away Dictation was produced using [employer] software. please excuse any grammatical, word or spelling errors. Time with Patient: Less than 30
--- NOTE | 2024-08-20 17:22 | P.DS ---
Providers Date of admission: 08/17/24 12:17 Attending physician: Ariel Reyna MD Consults: 08/17/24 12:17 Consult Physician Urgent Consulting Provider: Kate Avina Consult Reason/Comments: right foot wound Do you want consulting provider notified?: Yes Consult Physician Urgent Consulting Provider: Denise Snow Consult Reason/Comments: right foot cellulitis Do you want consulting provider notified?: Yes Primary care physician: [facility] Course: Final Diagnosis -Right foot wound infection from sterle suture abscess. Was debrided at the bedside. -Paroxysmal atrial fibrillation history of ablation presently not on any anticoagulation patient is on beta-phil which will be continued -Hypertension patient is hypotensive hold off on losartan -Hyperlipidemia Discharge Disposition Cleared for discharge home on one week of oral doxycycline. Patient to follow up with Dr Avina at [facility] next friday. 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 Patient apparently had a fall and debridement on June 25 and was seen in integrated circuit fabricator office and she is believed to have infected wound because of which patient was sent in here patient was started on Unasyn and vancomycin patient denied any history of MRSA in the past patient denied any fever chills. White blood cell count 6.5 on admission. Had a foot xray done reveals osteopenia, no suspicious cortical erosions to suggest ostemyelitis by xray. Patient does have history of atrial fibrillation although not on any anticoagulation patient does take Plavix which was placed on hold. Dr Avina had taken cultures in the office. Patient had bedside debridement done by Dr Avina who also stated the cultures from the office have been negative so far and recommending a 1 week course of oral doxycycline on discharge. The cultures taken at [facility] have not grown anything as of yet either this was discussed with ID who would prefer to final cultures. Patient anxious to discharge and was cleared to go by podiatry and will see Dr Avina in the wound care center on 08/25/24. Please see medication reconciliation for a list of current medications. Thank you for allowing us to participate in the care of this patient. The impression and plan of care has been dictated by Miranda Scherer, Nurse Practitioner as directed. Dr. Valerie MD I have performed a history and physical examination and medical decision making of this patient, discussed the same with the dictator, and agree with the dictators assessment and plan as written, documented as a scribe. Based on total visit time, I have performed more than 50% of this visit. Patient Condition at Discharge: Stable Plan - Discharge Summary Discharge Rx Participant: Yes New Discharge Prescriptions: New Doxycycline [Vibramycin] 100 mg PO BID 7 Days #14 capsule Continue Pantoprazole Sodium [Protonix] 40 mg PO DAILY metHOTREXate sodium [Methotrexate] 12.5 mg PO TU Folic Acid 1 mg PO DAILY Metoprolol Succinate (ER) [Toprol XL] 25 mg PO DAILY Zinc 50 mg PO DAILY Losartan Potassium [Cozaar] 25 mg PO DAILY Clopidogrel [Plavix] 75 mg PO DAILY #30 tab Rosuvastatin [Crestor] 20 mg PO DAILY #30 tablet Escitalopram Oxalate [Lexapro] 10 mg PO DAILY Cholecalciferol (Vitamin D3) [Vitamin D3 (125 MCG = 5,000 IU)] 125 mcg PO DAILY Cyanocobalamin (Vitamin B-12) [Vitamin B-12] 1,000 mcg PO DAILY Spironolactone 12.5 mg PO DAILY Total Beets 1 dose PO DAILY Discharge Medication List Pantoprazole Sodium [Protonix] 40 mg PO DAILY 06/29/14 [History] metHOTREXate sodium [Methotrexate] 12.5 mg PO TU 07/20/19 [History] Folic Acid 1 mg PO DAILY 11/28/19 [History] Metoprolol Succinate (ER) [Toprol XL] 25 mg PO DAILY 10/24/20 [History] Zinc 50 mg PO DAILY 10/24/20 [History] Cholecalciferol (Vitamin D3) [Vitamin D3 (125 MCG = 5,000 IU)] 125 mcg PO DAILY 05/29/21 [History] Cyanocobalamin (Vitamin B-12) [Vitamin B-12] 1,000 mcg PO DAILY 10/20/22 [History] Losartan Potassium [Cozaar] 25 mg PO DAILY 10/20/22 [History] Clopidogrel [Plavix] 75 mg PO DAILY #30 tab 07/25/23 [Rx] Rosuvastatin [Crestor] 20 mg PO DAILY #30 tablet 07/25/23 [Rx] Escitalopram Oxalate [Lexapro] 10 mg PO DAILY 08/17/24 [History] Spironolactone 12.5 mg PO DAILY 08/17/24 [History] Total Beets 1 dose PO DAILY 08/17/24 [History] Doxycycline [Vibramycin] 100 mg PO BID 7 Days #14 capsule 08/18/24 [Rx] Follow up Appointment(s)/Referral(s): Les Esteban MD [Primary Care Provider] - 08/20/24 10:00 am Kate Avina DPM [STAFF PHYSICIAN] - 08/25/24 11:00 am (At [facility] wound center. Per Dr. Avina, wound care center will call with appt. time. ) Denise Snow MD [STAFF PHYSICIAN] - As Needed (We cancelled the appointement and called the patient.) Patient Instructions/Handouts: Doxycycline (By mouth), Cellulitis (GEN) Activity/Diet/Wound Care/Special Instructions: Wound care at [facility] next Friday08/18/24. Per Dr. Avina, wound care center will call with appt. time. May remove dressing in 3 days. May shower-no bathing. Discharge Disposition: HOME SELF-CARE
== END 2024-08-18 12:14 | disposition home or self-care (01) | DRG 571 ==
LOC: EC 08:34 → 5NMEDONC 12:17
PROVIDERS: ADMIT Internal Medicine; ATTEND Internal Medicine
PROC: 0JBQ0ZZ Excision of Right Foot Subcutaneous Tissue and Fascia, Open Approach (ICD-10-PCS; principal; 2024-08-18)
DX: L97.512 Non-pressure chronic ulcer of other part of right foot with fat layer exposed (principal); L02.611 Cutaneous abscess of right foot; L03.115 Cellulitis of right lower limb; M06.9 Rheumatoid arthritis, unspecified; I48.0 Paroxysmal atrial fibrillation; I10 Essential (primary) hypertension; Z95.3 Presence of xenogenic heart valve; M81.0 Age-related osteoporosis without current pathological fracture; E78.5 Hyperlipidemia, unspecified; I95.9 Hypotension, unspecified; Z96.641 Presence of right artificial hip joint; Z79.02 Long term (current) use of antithrombotics/antiplatelets; Z87.891 Personal history of nicotine dependence; Z86.73 Personal history of transient ischemic attack (TIA), and cerebral infarction without residual deficits; Z79.899 Other long term (current) drug therapy; Z86.19 Personal history of other infectious and parasitic diseases; Z91.81 History of falling
CPT/HCPCS: 36415; 80048; 80053; 85025; 85652; 86140; 87040; 96365; 96367; 96368; 99284